=== PATIENT | male | born 1955 | race African-American/Black ===

== ENCOUNTER → 2019-06-09 | Day surgery (SDC) | payer MEDICARE ==
[2019-06-04 11:07] VITALS: BMI 31.4
[~2019-06-09] MED LIST: IOPAMIDOL-300 CONTRAST 30 ML VIAL (ORAL USE) PO PRN; LACTATED RINGERS 1,000 ML IV SCH; LIDOCAINE 1% 20 ML VIAL (10MG/ML) FOR IV START INTRADERMA PRN; PROPOFOL 10 MG/ML 20 ML VIAL IV ONE
[2019-06-09 07:46] VITALS: TEMP 97.6
--- NOTE | 2019-06-09 08:52 | P.GSHP ---
History of Present Illness H&P Date: 06/09/19 Chief Complaint: Screening colonoscopy This is a 63-year-old male referred from Dr. Chandra. Patient rents today for screening colonoscopy. He denies a significant checkpoints. He's never had a colonoscopy before. Past Medical History Additional Past Medical History / Comment(s): hemmorhoids, blood in stool, hx of rheumatic fever as child History of Any Multi-Drug Resistant Organisms: None Reported Past Surgical History: Orthopedic Surgery Additional Past Surgical History / Comment(s): 3 surgeries on left shoulder Past Anesthesia/Blood Transfusion Reactions: No Reported Reaction Smoking Status: Current every day smoker Medications and Allergies Home Medications Medication Instructions Recorded Confirmed Type HYDROcodone/APAP 10-325MG [[place] 1 tab PO Q6HR PRN 06/04/19 06/09/19 History 10-325] Allergies Allergy/AdvReac Type Severity Reaction Status Date / Time No Known Allergies Allergy Verified 06/04/19 10:44 Surgical - Exam Vital Signs Temp Pulse Resp BP Pulse Ox 97.6 F 89 16 161/74 96 06/09/19 07:41 06/09/19 07:41 06/09/19 07:41 06/09/19 07:41 06/09/19 07:41 - General well developed, well nourished, no distress - Eyes PERRL - ENT normal pinna - Neck no masses - Respiratory normal expansion - Cardiovascular Rhythm: regular - Abdomen Abdomen: soft, non tender Assessment and Plan Assessment: We'll perform screening colonoscopy
--- NOTE | 2019-06-09 09:06 | P.OP ---
Date of Procedure: 06/09/19 Preoperative Diagnosis: Screening colonoscopy Postoperative Diagnosis: Diverticulitis Procedure(s) Performed: Colonoscopy Anesthesia: MAC Surgeon: Lopez Mosquera Pathology: other (Left colon) Condition: stable Disposition: PACU Description of Procedure: The patient's placed on the endoscopy table in the lateral position. He received IV sedation. Digital rectal exam was performed which revealed no abnormalities. Flexible colonoscope was then placed patient anus passed throughout the colon. The scope couldn't be passed beyond the splenic flexure secondary to what appeared to be diverticulitis. The mucosa. Be inflamed. A biopsies performed. There is multiple large diverticula seen. Scope was withdrawn the sigmoid colon contained diverticula as well. Scope was brought back the rectum and this appeared normal. Scope withdrawn for patient. Patient was scheduled for a computed tomography scan of the abdomen and pelvis for diverticulitis.
[2019-06-09 09:42] VITALS: BP 158/76; PULSE 74; RESP 16
--- NOTE | 2019-06-09 14:46 | CT ---
EXAMINATION TYPE: CT abdomen pelvis w con DATE OF EXAM: 06/09/2019 COMPARISON: None INDICATION: Post colonoscopy, Diverticulitis DLP: 1503.50 mGycm, Automated exposure control for dose reduction was used. CONTRAST: 100 ml mL of Isovue 300. Study performed with Oral Contrast TECHNIQUE: Axial images were obtained from above the diaphragm to the pubic rami in the axial plane a t 5 mm thick sections. Reconstructed images are reviewed on the computer in the coronal plane. FINDINGS: Limited CT sections are obtained the lung bases. There is a 0.4 cm nodularity in the periphery of th e lingula. Series [address] ABDOMEN: Liver: Diffuse hepatic fatty infiltration is present. This is mild. Spleen: Scattered calcified granuloma are within the spleen. Pancreas: Normal Adrenal glands: There is a 0.9 cm thickening of the distal posterior left adrenal gland. The right ad renal gland appears normal. Gallbladder: Normal Kidneys: No masses are evident. No hydronephrosis is present. No cysts are present. Delayed images were obtained through the kidneys, which remain unremarkable. Aorta: Vascular calcification is within the aorta. Inferior vena cava: Normal. CT PELVIS: Scattered diverticuli are within the sigmoid colon. There is incomplete distention or some minimal wa ll thickening at the splenic flexure. There are loops of bowel which are incompletely distended or la ck oral contrast limiting their evaluation. Appendix: Normal as visualized. Urinary bladder: Normal. Genitourinary structures: Prostate appears unremarkable. Osseous structures: No suspicious lytic or sclerotic lesions. IMPRESSIONS: 1. 0.4 cm nodularity within the lingula. Follow-up CT chest exam within 6 months is recommended. 2. No free air is evident. Oral contrast extends to the rectum. 3. Diverticulosis without acute diverticulitis. 4. Incomplete distention of the splenic flexure versus mild wall thickening. Correlate with colonosco py findings.
== END | disposition home or self-care (01) ==
LOC: ORWHC2ENDO 07:28
PROVIDERS: ATTEND Surgery
DX: K63.5 Polyp of colon (principal); K57.32 Diverticulitis of large intestine without perforation or abscess without bleeding; F17.200 Nicotine dependence, unspecified, uncomplicated
CPT/HCPCS: 88305; 74177; 45380; J2704; Q9967; 45331

== ENCOUNTER 2021-02-09 21:00 | Inpatient (IN) | payer MEDICARE ==
[2021-02-09 21:34] LABS: Basophils # (A) 0.2 k/uL (0-0.2); Basophils % (A) 2 %; Eosinophils % (A) 0 %; HCT 53.8 % (39.0-53.0); HGB 18.7 gm/dL (13.0-17.5); Lymphocytes % (A) 10 %; MCH 33.3 pg (25.0-35.0); MCHC 34.7 g/dL (31.0-37.0); Mean Platelet Volume 8.2; Monocytes # (A) 0.4 k/uL (0-1.0); Monocytes % (A) 4 %; Neutrophils # (A) 8.1 k/uL (1.3-7.7); Neutrophils % (A) 81 %; Platelet Count 270 k/uL (150-450); RDW 14.2 % (11.5-15.5)
[2021-02-09 21:47] LABS: Albumin 3.6 g/dL (3.5-5.0); Total Bilirubin 0.7 mg/dL (0.2-1.3); Total Protein 7.3 g/dL (6.3-8.2)
--- NOTE | 2021-02-09 21:51 | ED ---
SOB HPI - General Chief Complaint: Shortness of Breath Stated Complaint: EMMANUEL Time Seen by Provider: 02/09/21 21:12 Source: patient, RN/MD Mode of arrival: EMS Limitations: no limitations - History of Present Illness Initial Comments: This patient is 65-year-old man brought by ambulance to be evaluated for shortness of breath. Patient states that his family had called as she was not feeling well. He started having symptoms proximally 6 days ago. He initially was having a little bit of cough. He then developed fever and chills, body aches, fatigue past increasing shortness of breath. MD Complaint: shortness of breath, cough Onset/Timin -: days(s) Consistency: constant Improves With: nothing Worsens With: nothing Associated Symptoms: denies other symptoms Treatments Prior to Arrival: none - Related Data Home Oxygen Therapy: No Home Medications Medication Instructions Recorded Confirmed HYDROcodone/APAP 10-325MG [[place] 0.5 - 1 tab PO BID PRN 06/04/19 02/09/21 10-325] Azithromycin [Zithromax Z-pack (6 See Taper PO DIRECTED 02/09/21 02/09/21 tabs)] Dexamethasone [Decadron] 3 mg PO BID 02/09/21 02/09/21 Allergies Allergy/AdvReac Type Severity Reaction Status Date / Time No Known Allergies Allergy Verified 02/09/21 23:08 Review of Systems ROS Statement: Those systems with pertinent positive or pertinent negative responses have been documented in the HPI. ROS Other: All systems not noted in ROS Statement are negative. Constitutional: Reports: fever, chills, weakness Respiratory: Reports: cough, dyspnea. Denies: hemoptysis Cardiovascular: Denies: chest pain, palpitations, orthopnea, edema, syncope Endocrine: Reports: fatigue Gastrointestinal: Denies: abdominal pain, vomiting, diarrhea Genitourinary: Denies: dysuria, hematuria Musculoskeletal: Denies: back pain Skin: Denies: rash Neurological: Reports: headache. Denies: weakness, numbness Past Medical History Additional Past Medical History / Comment(s): hemmorhoids, blood in stool, hx of rheumatic fever as child History of Any Multi-Drug Resistant Organisms: None Reported Past Surgical History: Orthopedic Surgery Additional Past Surgical History / Comment(s): 3 surgeries on left shoulder Past Anesthesia/Blood Transfusion Reactions: No Reported Reaction Past Psychological History: No Psychological Hx Reported Smoking Status: Former smoker Past Alcohol Use History: Occasional Past Drug Use History: Marijuana General Exam Limitations: no limitations General appearance: alert, in distress Head exam: Present: atraumatic, normocephalic Eye exam: Present: normal appearance. Absent: scleral icterus, conjunctival inj ection ENT exam: Present: normal oropharynx Neck exam: Present: normal inspection, full ROM Respiratory exam: Present: respiratory distress, rales, accessory muscle use. Absent: wheezes, rhonchi, stridor, decreased breath sounds, prolonged expiratory Cardiovascular Exam: Present: normal rhythm, tachycardia, normal heart sounds. Absent: systolic murmur, diastolic murmur, rubs, gallop GI/Abdominal exam: Present: soft. Absent: distended, tenderness, guarding, rebound, rigid, mass Extremities exam: Present: normal inspection, normal capillary refill. Absent: pedal edema, calf tenderness Back exam: Present: normal inspection. Absent: CVA tenderness (R), CVA tenderness (L) Neurological exam: Present: alert Skin exam: Present: warm, dry, intact, normal color. Absent: rash Course Vital Signs 02/09/21 02/09/21 02/09/21 21:11 22:00 23:00 Temperature 98.7 F Pulse Rate 110 H 106 H 100 Pulse Rate [ Pulse Oximetery ] Respiratory 36 H 24 22 Rate Blood Pressure 147/79 141/83 138/69 Blood Pressure [Right Arm Supine] O2 Sat by Pulse 84 L 89 L 89 L Oximetry 02/10/21 02/10/21 02/10/21 00:00 01:00 02:00 Temperature Pulse Rate 99 93 90 Pulse Rate [ Pulse Oximetery ] Respiratory 24 24 24 Rate Blood Pressure 125/71 131/81 139/66 Blood Pressure [Right Arm Supine] O2 Sat by Pulse 91 L 84 L 85 L Oximetry 02/10/21 02/10/21 02/10/21 03:00 06:00 10:32 Temperature 98.7 F 96.4 F L Pulse Rate 93 85 Pulse Rate [ 96 Pulse Oximetery ] Respiratory 24 24 30 H Rate Blood Pressure 156/67 148/68 Blood Pressure 149/71 [Right Arm Supine] O2 Sat by Pulse 83 L 94 L 92 L Oximetry 02/10/21 02/10/21 11:10 11:20 Temperature 98.5 F Pulse Rate 99 94 Pulse Rate [ Pulse Oximetery ] Respiratory 37 H 37 H Rate Blood Pressure 155/82 Blood Pressure [Right Arm Supine] O2 Sat by Pulse 95 96 Oximetry Medical Decision Making - Medical Decision Making Patient's 65-year-old man presenting with a constellation of symptoms suggestive of code 19 infection and tested positive. He will be admitted as he is requiring high levels of supplemental oxygen. Additional medications started. Case discussed with admitting physician and will have pulmonology consultation as well. - Lab Data Result diagrams: 02/12/21 05:35 02/12/21 05:35 Lab Results 02/09/21 02/09/21 02/09/21 Range/Units 21:17 21:17 21:17 WBC 10.0 (3.8-10.6) k/uL RBC 5.60 (4.30-5.90) m/uL Hgb 18.7 H (13.0-17.5) gm/dL Hct 53.8 H (39.0-53.0) % MCV 96.0 (80.0-100.0) fL MCH 33.3 (25.0-35.0) pg MCHC 34.7 (31.0-37.0) g/dL RDW 14.2 (11.5-15.5) % Plt Count 270 (150-450) k/uL MPV 8.2 Neutrophils % 81 % Lymphocytes % 10 % Monocytes % 4 % Eosinophils % 0 % Basophils % 2 % Neutrophils # 8.1 H (1.3-7.7) k/uL Lymphocytes # 1.0 (1.0-4.8) k/uL Monocytes # 0.4 (0-1.0) k/uL Eosinophils # 0.0 (0-0.7) k/uL Basophils # 0.2 (0-0.2) k/uL PT 11.1 (9.0-12.0) sec INR 1.0 (<1.2) APTT 21.4 L (22.0-30.0) sec D-Dimer 5.76 H (<0.60) mg/L FEU Sodium 140 (137-145) mmol/L Potassium 4.9 (3.5-5.1) mmol/L Chloride 106 (98-107) mmol/L Carbon Dioxide 25 (22-30) mmol/L Anion Gap 9 mmol/L BUN 30 H (9-20) mg/dL Creatinine 1.08 (0.66-1.25) mg/dL Est GFR (CKD-EPI)AfAm 84 (>60 ml/min/1.73 sqM) Est GFR (CKD-EPI)NonAf 73 (>60 ml/min/1.73 sqM) Glucose 151 H (74-99) mg/dL Lactic Ac Sepsis Rflx Plasma Lactic Acid Ronal (0.7-2.0) mmol/L Calcium 8.4 (8.4-10.2) mg/dL Magnesium 3.1 H (1.6-2.3) mg/dL Total Bilirubin 0.7 (0.2-1.3) mg/dL AST 100 H (17-59) U/L ALT 86 H (4-49) U/L Alkaline Phosphatase 122 (38-126) U/L Troponin I (0.000-0.034) ng/mL NT-Pro-B Natriuret Pep pg/mL Total Protein 7.3 (6.3-8.2) g/dL Albumin 3.6 (3.5-5.0) g/dL Coronavirus (PCR) (Not Detectd) Blood Type Confirm 02/09/21 02/09/21 02/09/21 Range/Units 21:17 21:17 21:17 WBC (3.8-10.6) k/uL RBC (4.30-5.90) m/uL Hgb (13.0-17.5) gm/dL Hct (39.0-53.0) % MCV (80.0-100.0) fL MCH (25.0-35.0) pg MCHC (31.0-37.0) g/dL RDW (11.5-15.5) % Plt Count (150-450) k/uL MPV Neutrophils % % Lymphocytes % % Monocytes % % Eosinophils % % Basophils % % Neutrophils # (1.3-7.7) k/uL Lymphocytes # (1.0-4.8) k/uL Monocytes # (0-1.0) k/uL Eosinophils # (0-0.7) k/uL Basophils # (0-0.2) k/uL PT (9.0-12.0) sec INR (<1.2) APTT (22.0-30.0) sec D-Dimer (<0.60) mg/L FEU Sodium (137-145) mmol/L Potassium (3.5-5.1) mmol/L Chloride (98-107) mmol/L Carbon Dioxide (22-30) mmol/L Anion Gap mmol/L BUN (9-20) mg/dL Creatinine (0.66-1.25) mg/dL Est GFR (CKD-EPI)AfAm (>60 ml/min/1.73 sqM) Est GFR (CKD-EPI)NonAf (>60 ml/min/1.73 sqM) Glucose (74-99) mg/dL Lactic Ac Sepsis Rflx Plasma Lactic Acid Ronal 2.4 H* (0.7-2.0) mmol/L Calcium (8.4-10.2) mg/dL Magnesium (1.6-2.3) mg/dL Total Bilirubin (0.2-1.3) mg/dL AST (17-59) U/L ALT (4-49) U/L Alkaline Phosphatase (38-126) U/L Troponin I 0.035 H* (0.000-0.034) ng/mL NT-Pro-B Natriuret Pep 472 pg/mL Total Protein (6.3-8.2) g/dL Albumin (3.5-5.0) g/dL Coronavirus (PCR) (Not Detectd) Blood Type Confirm 02/09/21 02/09/21 02/09/21 Range/Units 21:17 21:43 22:42 WBC (3.8-10.6) k/uL RBC (4.30-5.90) m/uL Hgb (13.0-17.5) gm/dL Hct (39.0-53.0) % MCV (80.0-100.0) fL MCH (25.0-35.0) pg MCHC (31.0-37.0) g/dL RDW (11.5-15.5) % Plt Count (150-450) k/uL MPV Neutrophils % % Lymphocytes % % Monocytes % % Eosinophils % % Basophils % % Neutrophils # (1.3-7.7) k/uL Lymphocytes # (1.0-4.8) k/uL Monocytes # (0-1.0) k/uL Eosinophils # (0-0.7) k/uL Basophils # (0-0.2) k/uL PT (9.0-12.0) sec INR (<1.2) APTT (22.0-30.0) sec D-Dimer (<0.60) mg/L FEU Sodium (137-145) mmol/L Potassium (3.5-5.1) mmol/L Chloride (98-107) mmol/L Carbon Dioxide (22-30) mmol/L Anion Gap mmol/L BUN (9-20) mg/dL Creatinine (0.66-1.25) mg/dL Est GFR (CKD-EPI)AfAm (>60 ml/min/1.73 sqM) Est GFR (CKD-EPI)NonAf (>60 ml/min/1.73 sqM) Glucose (74-99) mg/dL Lactic Ac Sepsis Rflx Y Plasma Lactic Acid Ronal (0.7-2.0) mmol/L Calcium (8.4-10.2) mg/dL Magnesium (1.6-2.3) mg/dL Total Bilirubin (0.2-1.3) mg/dL AST (17-59) U/L ALT (4-49) U/L Alkaline Phosphatase (38-126) U/L Troponin I (0.000-0.034) ng/mL NT-Pro-B Natriuret Pep pg/mL Total Protein (6.3-8.2) g/dL Albumin (3.5-5.0) g/dL Coronavirus (PCR) Detected A (Not Detectd) Blood Type Confirm A Positive - EKG Data -: EKG Interpreted by Vt EKG shows normal: sinus rhythm, intervals (VA interval 132 ms (normal), QTC 523 ms. QRS duration 140 ms, prolonged consistent with the left bundle-branch block), QRS complexes (Left bundle-branch block) Rate: tachycardia (Rate 107 bpm) Critical Care Time Critical Care Time: Yes (30 minutes) Disposition Clinical Impression: COVID-19, Pneumonia due to 2019-nCoV, Hypoxemia Disposition: ADMITTED IP TO THIS HOSP Condition: Serious
--- NOTE | 2021-02-09 22:05 | XR ---
EXAMINATION TYPE: XR chest 1V portable DATE OF EXAM: 02/09/2021 COMPARISON: NONE HISTORY: Fever and shortness of breath. TECHNIQUE: Single frontal view of the chest is obtained. FINDINGS: There is a bilateral diffuse interstitial opacities, relatively sparing the left lung apex . No pleural effusion, or pneumothorax seen. The cardiac silhouette size is within normal limits. The osseous structures are intact. IMPRESSION: Bilateral diffuse infiltrates.
[2021-02-09 22:08] LABS: Partial Thromboplastin Time 21.4 sec (22.0-30.0); Prothrombin Time 11.1 sec (9.0-12.0)
[2021-02-09 22:15] LABS: D-Dimer 5.76 mg/L FEU (<0.60)
[2021-02-09 22:36] LABS: Calcium 8.4 mg/dL (8.4-10.2); Magnesium 3.1 mg/dL (1.6-2.3); Potassium 4.9 mmol/L (3.5-5.1)
[2021-02-09] MEDS ORDERED: DEXAMETHASONE SOD PHOSPHATE 4 MG/ML 1 ML VIAL IV STA (22:41)
[2021-02-09] MEDS ORDERED: NALOXONE 0.4 MG/ML 1 ML VIAL IV PRN (22:58)
[2021-02-09] MEDS ORDERED: ACETAMINOPHEN TAB 325 MG TAB PO PRN (22:58)
[2021-02-09] MEDS: SODIUM CHLORIDE 0.9% 1,000 ML IV SCH (23:34)
--- NOTE | 2021-02-09 23:42 | CT ---
EXAMINATION TYPE: CT chest angio for PE DATE OF EXAM: 02/09/2021 COMPARISON: None HISTORY: ELEVATED D-DIMER CT DLP: 503.5 mGycm Automated exposure control for dose reduction was used. CONTRAST: Performed with IV Contrast, patient injected with 100 mL of Isovue 370. There are 3-D post processed images. There is diffuse pulmonary emphysema. There is extensive interstitial coalescent infiltrate in the up per and lower lobes bilaterally. There is no pleural effusion. Heart is top normal in size. There is no pericardial effusion. There are right bronchial lymph nodes up to 1.5 cm. There is no mediastinal adenopathy. Thoracic aorta is intact. There is no aneurysm or dissection. There is no evidence of filling defect in the pulmonary arteries. Thoracic spine is intact. There is no compression fracture. The sternum is intact. IMPRESSION: No evidence of pulmonary embolism. Extensive bilateral pneumonia. There is underlying pulmonary emphy sema.
[2021-02-10] MEDS ORDERED: HEPARIN SODIUM,PORCINE/PF 5,000 UNIT/0.5 ML SYRINGE SQ SCH
[2021-02-10] MEDS: SODIUM CHLORIDE 0.9% 1,000 ML IV SCH ×2 (06:17→16:05)
[2021-02-10] MEDS: ALPRAZolam 0.25 MG TAB PO STA ×2 (07:19→07:21)
[2021-02-10] MEDS: ZINC SULFATE 220 MG CAP PO SCH (09:18)
[2021-02-10] MEDS: CHOLECALCIFEROL 25 MCG (1000 IU) TABLET PO SCH (09:18)
[2021-02-10] MEDS: DEXAMETHASONE SOD PHOSPHATE 10 MG/ML 1 ML VIAL IV SCH (09:19)
[2021-02-10] MEDS: ASCORBIC ACID 500 MG TAB PO SCH (09:19)
[2021-02-10] MEDS: LORazepam 2 MG/ML INJ IV PRN (09:40)
[2021-02-10] MEDS ORDERED: TOCILIZUMAB 800 MG in SODIUM CHLORIDE 0.9% 60 ML IV ONE (11:00)
[2021-02-10 11:13] LABS: Glucose,Whole Blood 124 mg/dL (75-99)
[2021-02-10] MEDS: METOPROLOL TARTRATE 25 MG TAB PO SCH ×2 (11:45→21:13)
[2021-02-10] MEDS: ASPIRIN 81 MG PO SCH (11:45)
--- NOTE | 2021-02-10 11:46 | P.CRDCN ---
History of Present Illness History of present illness: HISTORY OF PRESENTING ILLNESS This is a pleasant 65-year-old male past medical history significant for former nicotine dependence (he quit a few months ago and was smoking 2 ppd for over 20 years). 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 We have been asked to see in consultation for elevated troponin. Patient is seen and examined in the emergency department. Patient presented to the emergency room to be evaluated for shortness of breath. Family called an ambulance because he was not feeling well. He started having shortness of breath 6 days ago and a cough. Then he developed a fever, chills, bodyaches, fatigue and continued to have worsening shortness of breath. Patient was found to be Covid-19 positive. Troponin elevated 0.03-->0.06--0.06. D-dimer also elevated at 5.76. Chest x-ray revealed bilateral diffuse interstitial opacities. CT chest revealed extensive bilateral pneumonia, no evidence of a pulmonary embolism. EKG revealed sinus tachycardia, with a left bundle branch block, T wave inversions in lateral leads, avF, V6, QTc 523, No prior EKG to compare. Patient sitting up at edge of bed on BiPap. Patient currently does not take any cardiac medications. He denies any cardiac history. Denies chest pain, palpitations, lower extremity edema, weakness, lightheadedness, syncope]. Denies history of diabetes, AR, stroke, hypertension. He denies alcohol or illicit drug use Laboratory data reviewed, WBC 10, hemoglobin 18.7, platelets 270, d-dimer 5.76, sodium 140, potassium 4.9, magnesium 3.1, serum creatinine 1.08, AST 100, ALT 86 Vital signs blood pressure 156/67, heart rate 93, afebrile, patient hypoxic when presented to the ER SpO2 84 and requiring a non-rebreather mask, now on high flow nasal cannula REVIEW OF SYSTEMS At the time of my exam: CONSTITUTIONAL: + fever or chills. CARDIOVASCULAR: Denies chest pain, +shortness of breath, Denies orthopnea, PND or palpitations. RESPIRATORY: + cough. GASTROINTESTINAL: Denies abdominal pain, diarrhea, constipation, nausea or vomiting. MUSCULOSKELETAL: Denies myalgias. NEUROLOGIC: Denies numbness, tingling, headacbe or weakness. ENDOCRINE: +fatigue, Denies weight change, polydipsia or polyurina. GENITOURINARY: Denies burning, hematuria or urgency with micturation. HEMATOLOGIC: Denies history of anemia or bleeding. PHYSICAL EXAMINATION CONSTITUTIONAL: No apparent distress. HEENT: Head is normocephalic. Pupils are equal, round. Sclerae anicteric. Mucous membranes of the mouth are moist. No JVD. No carotid bruit. CHEST EXAMINATION: Crackles in bilateral bases. No chest wall tenderness is noted on palpation or with deep breathing. HEART EXAMINATION: Tachycardia rate and rhythm. S1, S2 heard. No murmurs, gallops or rub. ABDOMEN: Soft, nontender. Positive bowel sounds. EXTREMITIES: 2+ peripheral pulses, no lower extremity edema and no calf tenderness. SKIN: intact NEUROLOGIC EXAMINATION: Patient is awake, alert and oriented x3. ASSESSMENT Acute hypoxic respiratory failure most likely due to Covid-19 infection Covid 19 Former nicotine dependence Elevated troponin Left bundle branch block Elevated liver enzymes PLAN Obtain 2D echocardiogram and doppler study to assess cardiac structure and function. Will start metoprolol tartrate 25mg BID Will continue to follow patient Nurse Practitioner note has been reviewed, I agree with a documented findings and plan of care. Patient was seen and examined. Past Medical History Additional Past Medical History / Comment(s): hemmorhoids, blood in stool, hx of rheumatic fever as child History of Any Multi-Drug Resistant Organisms: None Reported Past Surgical History: Orthopedic Surgery Additional Past Surgical History / Comment(s): 3 surgeries on left shoulder Past Anesthesia/Blood Transfusion Reactions: No Reported Reaction Past Psychological History: No Psychological Hx Reported Smoking Status: Former smoker Past Alcohol Use History: Occasional Past Drug Use History: Marijuana Medications and Allergies Home Medications Medication Instructions Recorded Confirmed Type HYDROcodone/APAP 10-325MG [[place] 0.5 - 1 tab PO BID PRN 06/04/19 02/09/21 History 10-325] Azithromycin [Zithromax Z-pack (6 See Taper PO DIRECTED 02/09/21 02/09/21 History tabs)] Dexamethasone [Decadron] 3 mg PO BID 02/09/21 02/09/21 History Allergies Allergy/AdvReac Type Severity Reaction Status Date / Time No Known Allergies Allergy Verified 02/09/21 23:08 Physical Exam Vitals: Vital Signs Temp Pulse Resp BP Pulse Ox 02/10/21 03:00 93 24 156/67 83 L 02/10/21 02:00 90 24 139/66 85 L 02/10/21 01:00 93 24 131/81 84 L 02/10/21 00:00 99 24 125/71 91 L 02/09/21 23:00 100 22 138/69 89 L 02/09/21 22:00 106 H 24 141/83 89 L 02/09/21 21:11 98.7 F 110 H 36 H 147/79 84 L Intake and Output 02/09/21 02/09/21 02/10/21 14:59 22:59 06:59 Other: Weight 99.79 kg Results 02/09/21 21:17 02/09/21 21:17 Cardiac Enzymes 02/09/21 02/09/21 02/10/21 Range/Units 21:17 21:17 02:14 AST 100 H (17-59) U/L Troponin I 0.035 H* 0.065 H* (0.000-0.034) ng/mL Coagulation 02/09/21 Range/Units 21:17 PT 11.1 (9.0-12.0) sec APTT 21.4 L (22.0-30.0) sec CBC 02/09/21 Range/Units 21:17 WBC 10.0 (3.8-10.6) k/uL RBC 5.60 (4.30-5.90) m/uL Hgb 18.7 H (13.0-17.5) gm/dL Hct 53.8 H (39.0-53.0) % Plt Count 270 (150-450) k/uL Comprehensive Metabolic Panel 02/09/21 Range/Units 21:17 Sodium 140 (137-145) mmol/L Potassium 4.9 (3.5-5.1) mmol/L Chloride 106 (98-107) mmol/L Carbon Dioxide 25 (22-30) mmol/L BUN 30 H (9-20) mg/dL Creatinine 1.08 (0.66-1.25) mg/dL Glucose 151 H (74-99) mg/dL Calcium 8.4 (8.4-10.2) mg/dL AST 100 H (17-59) U/L ALT 86 H (4-49) U/L Alkaline Phosphatase 122 (38-126) U/L Total Protein 7.3 (6.3-8.2) g/dL Albumin 3.6 (3.5-5.0) g/dL Current Medications Generic Name Dose Route Start Last Admin Trade Name Freq PRN Reason Stop Dose Admin Acetaminophen 650 mg 02/09/21 22:58 Acetaminophen Tab 325 Mg Tab PO Q6HR PRN Mild Pain or Fever > 100.5 Ascorbic Acid 500 mg 02/10/21 09:00 Ascorbic Acid 500 Mg Tab PO DAILY MARIO Cholecalciferol 100 mcg 02/10/21 09:00 Cholecalciferol 25 Mcg (1000 Iu) Tablet PO DAILY MARIO Dexamethasone Sodium Phosphate 6 mg 02/10/21 09:00 Dexamethasone Sod Phosphate 10 Mg/Ml 1 Ml Vial IV DAILY MARIO Heparin Sodium (Porcine) 5,000 unit 02/10/21 00:00 02/10/21 01:27 Heparin Sodium,Porcine/Pf 5,000 Unit/0.5 Ml Syringe SQ 5,000 unit Q8HR MARIO Administration Sodium Chloride 1,000 mls @ 130 mls/hr 02/09/21 23:00 02/09/21 23:34 Saline 0.9% IV 130 mls/hr .[id number] MARIO Administration Naloxone HCl 0.2 mg 02/09/21 22:58 Naloxone 0.4 Mg/Ml 1 Ml Vial IV Q2M PRN Opioid Reversal Zinc Sulfate 220 mg 02/10/21 09:00 Zinc Sulfate 220 Mg Cap PO DAILY MARIO Intake and Output 02/09/21 02/09/21 02/10/21 14:59 22:59 06:59 Other: Weight 99.79 kg Patient Weight 02/10/21 06:59 Weight 99.79 kg 02/09/21 21:17 02/09/21 21:17
--- NOTE | 2021-02-10 14:00 | US ---
EXAMINATION TYPE: US venous doppler duplex LE DATE OF EXAM: 02/10/2021 1:44 PM COMPARISON: NONE CLINICAL HISTORY: Rule out DVT. SIDE PERFORMED: Bilateral TECHNIQUE: The lower extremity deep venous system is examined utilizing real time linear array sonog ken with graded compression, doppler sonography and color-flow sonography. VESSELS IMAGED: Common Femoral Vein Deep Femoral Vein Greater Saphenous Vein * Femoral Vein Popliteal Vein Small Saphenous Vein * Proximal Calf Veins (* superficial vessels) ICU patient on high level of O2. Pt's position making exam technically difficult. Right Leg: Negative for DVT as seen, CFV seen only distally, GSV not seen. Left Leg: Negative for DVT, CFV seen only distally, GSV not seen. IMPRESSION: 1. Bilateral lower extremity ultrasound negative for deep venous thrombosis. 2. Exam is limited, portions of the exam are nondiagnostic due to nonvisualization secondary to patie nt positioning.
--- NOTE | 2021-02-10 14:50 | P.CNPUL ---
History of Present Illness Consult date: 02/10/21 Reason for consult: dyspnea, COPD, hypoxemia, pneumonia, abnormal CXR/CT Chief complaint: Acute hypoxic respiratory failure related to COVID 19 pneumonia History of present illness: 65-year-old -German male patient with past history of smoking which is currently in remission, and patient does smoke marijuana on a regular basis, who presented to the emergency department on 02/09/2021 with 2 week history of in creased shortness of breath. At the time of my evaluation patient is quite restless, is a poor historian, he is removing his BiPAP currently, he is requiring close monitoring as he is easily desaturating he was placed on Airvo at 60 L and FiO2 of 90% and his pulse ox went down to 82%. Denies any chest pain. His contacted Dr. Stevens's office and was told to come into the emergency department. While patient was at a green party 2 weeks ago, and he was possibly infected there. He has not been vaccinated for COVID 19 yet. His chest x-ray in the emergency department shows bilateral diffuse interstitial opacities. He is d-dimer was 5.76, and CTA chest showed no evidence of pulmonary embolism, and additional extensive bilateral pneumonia with underlying pulmonary emphysema. Denies lower extremity swelling or calf pain, lower extremity Dopplers were negative for DVT. Plasma lactic acid was 2.4, BUN was 30, creatinine is 1.08, AST was 100, ALT was 86, troponin was elevated to 0.035, 0.065, and 0.069, proBNP was 472, pro calcitonin level was negative at 0.14. His COVID 19 PCR was positive. Review of significant hypoxia, and risk of further deterioration the decision was made to transfer the patient to the intensive care unit. His was notified. Patient is outside the window for Remdesivir, but will receive Tocilizumab, IL-6 monoclonal antibody. He required doses of lorazepam for anxiety, with affect. She will be placed on intermediate dose of anticoagulation with Lovenox 50 mg subcu twice daily Review of Systems All systems: negative Constitutional: Denies chills, Denies fever Eyes: denies blurred vision, denies pain Ears, nose, mouth and throat: Denies headache, Denies sore throat Cardiovascular: Denies chest pain, Denies shortness of breath Respiratory: Reports cough, Reports dyspnea Gastrointestinal: Denies abdominal pain, Denies diarrhea, Denies nausea, Denies vomiting Musculoskeletal: Denies myalgias Integumentary: Denies pruritus, Denies rash Neurological: Denies numbness, Denies weakness Psychiatric: Denies anxiety, Denies depression Endocrine: Denies fatigue, Denies weight change Past Medical History Past Medical History: No Reported History Additional Past Medical History / Comment(s): hemmorhoids, blood in stool, hx of rheumatic fever as child History of Any Multi-Drug Resistant Organisms: None Reported Past Surgical History: Orthopedic Surgery Additional Past Surgical History / Comment(s): 3 surgeries on left shoulder Past Anesthesia/Blood Transfusion Reactions: No Reported Reaction Past Psychological History: No Psychological Hx Reported Smoking Status: Former smoker Past Alcohol Use History: Occasional Past Drug Use History: Marijuana Medications and Allergies Home Medications Medication Instructions Recorded Confirmed Type HYDROcodone/APAP 10-325MG [[place] 0.5 - 1 tab PO BID PRN 06/04/19 02/09/21 [facility] 10-325] Azithromycin [Zithromax Z-pack (6 See Taper PO DIRECTED 02/09/21 02/09/21 [facility] tabs)] Dexamethasone [Decadron] 3 mg PO BID 02/09/21 02/09/21 History Allergies Allergy/AdvReac Type Severity Reaction Status Date / Time No Known Allergies Allergy Verified 02/09/21 23:08 Physical Exam Vitals: Vital Signs Temp Pulse Pulse Resp BP BP Pulse Ox 02/10/21 14:00 78 31 H 142/69 96 02/10/21 13:00 75 27 H 157/80 94 L 02/10/21 12:00 87 29 H 155/82 96 02/10/21 11:20 98.5 F 94 37 H 155/82 96 02/10/21 11:10 99 37 H 95 02/10/21 10:32 96.4 F L 96 30 H 149/71 92 L 02/10/21 06:00 98.7 F 85 24 148/68 94 L 02/10/21 03:00 93 24 156/67 83 L 02/10/21 02:00 90 24 139/66 85 L 02/10/21 01:00 93 24 131/81 84 L 02/10/21 00:00 99 24 125/71 91 L 02/09/21 23:00 100 22 138/69 89 L 02/09/21 22:00 106 H 24 141/83 89 L 02/09/21 21:11 98.7 F 110 H 36 H 147/79 84 L Intake and Output 02/09/21 02/10/21 02/10/21 22:59 06:59 14:59 Intake Total 500 Balance 500 Intake: Intake, IV Titration 400 Amount Sodium Chloride 0.9% 1, 300 000 ml @ 75 mls/hr IV . [id number] [facility] Rx#:[id number] Tocilizumab 800 mg In 100 Sodium Chloride 0.9% 60 ml @ 100 mls/hr IV ONCE ONE Rx#:[id number] Oral 100 Blood Product 0 Ffp Convalescent Plasma 0 Cpd Unit [id number] Other: Weight 99.79 kg 99.79 kg GENERAL EXAM: Alert, agitated, restless, 65-year-old black male taking his BiPAP mask off and desaturating, placed on Airvo at 60 L and FiO2 of 90% comfortable in no apparent distress. HEAD: Normocephalic/atraumatic. EYES: Normal reaction of pupils, equal size. Conjunctiva pink, sclera white. NOSE: Clear with pink turbinates. THROAT: No erythema or exudates. NECK: No masses, no JVD, no thyroid enlargement, no adenopathy. CHEST: No chest wall deformity. Symmetrical expansion. LUNGS: Equal air entry with diffuse bibasilar crackles CVS: Regular rate and rhythm, normal S1 and S2, no gallops, no murmurs, no rubs ABDOMEN: Soft, nontender. No hepatosplenomegaly, normal bowel sounds, no guarding or rigidity. EXTREMITIES: No clubbing, no edema, no cyanosis, 2+ pulses and upper and lower extremities. MUSCULOSKELETAL: Muscle strength and tone normal. SPINE: No scoliosis or deformity SKIN: No rashes CENTRAL NERVOUS SYSTEM: Alert and oriented -3. No focal deficits, tone is normal in all 4 extremities. PSYCHIATRIC: Alert and oriented -3. Appropriate affect. Intact judgment and insight. Results - Laboratory Findings CBC and BMP: 02/09/21 21:17 02/09/21 21:17 PT/INR, D-dimer PT 11.1 sec (9.0-12.0) 02/09/21 21:17 INR 1.0 (<1.2) 02/09/21 21:17 D-Dimer 5.76 mg/L FEU (<0.60) H 02/09/21 21:17 Abnormal lab findings: Abnormal Labs 02/09/21 02/09/21 02/09/21 21:17 21:17 21:17 Hgb 18.7 H Hct 53.8 H Neutrophils # 8.1 H APTT 21.4 L D-Dimer 5.76 H BUN 30 H Glucose 151 H POC Glucose (mg/dL) Plasma Lactic Acid Ronal Magnesium 3.1 H AST 100 H ALT 86 H Troponin I Procalcitonin Coronavirus (PCR) 02/09/21 02/09/21 02/09/21 21:17 21:17 21:43 Hgb Hct Neutrophils # APTT D-Dimer BUN Glucose POC Glucose (mg/dL) Plasma Lactic Acid Ronal 2.4 H* Magnesium AST ALT Troponin I 0.035 H* Procalcitonin Coronavirus (PCR) Detected A 02/10/21 02/10/21 02/10/21 01:07 02:14 06:00 Hgb Hct Neutrophils # APTT D-Dimer BUN Glucose POC Glucose (mg/dL) Plasma Lactic Acid Ronal Magnesium AST ALT Troponin I 0.065 H* 0.069 H* Procalcitonin 0.14 H Coronavirus (PCR) 02/10/21 11:11 Hgb Hct Neutrophils # APTT D-Dimer BUN Glucose POC Glucose (mg/dL) 124 H Plasma Lactic Acid Ronal Magnesium AST ALT Troponin I Procalcitonin Coronavirus (PCR) - Diagnostic Findings Chest x-ray: report reviewed, image reviewed CT scan - chest: report reviewed, image reviewed Additional studies: EKG reviewed, lower extremity Dopplers reviewed Assessment and Plan Plan: Assessment: #1. Acute hypoxemic respiratory failure, related to COVID 19 pneumonia, with onset of symptoms 14 days ago, outside the window for Remdesivir. On presentation patient has significant bilateral diffuse infiltrates, and severe hypoxic respiratory failure requiring BiPAP support, the patient failed Airvo at 60 L and FiO2 of 90%. Transfer to the intensive care unit from the emergency department on 02/10/2021 #2. Dyspnea, cough, recent inflammatory markers related to the above #3. Increased d-dimer of 5.[address] evidence of pulmonary embolism and no evidence of DVT on lower extremity Dopplers #4. Troponin leak, likely related to severe COVID 19 pneumonia with severe hypoxic respiratory failure, and cardiology is following #5. Former smoker, carries [id number] smoking history, currently in remission, suspect underlying COPD #6. Marijuana use Plan: Patient presented to the hospital already in the moderate to severe presentation of COVID 19 pneumonia with severe hypoxic respiratory failure, requiring high flow Airvo, and eventually being placed on BiPAP support, we'll give the patient a dose of Tocilizumab, Lovenox 50 mg twice daily, there is no CTA evidence of pulmonary embolism, venous Dopplers are negative for DVT in lower extremity. Maintaining safety precautions, Ativan 1 mg every 4 hours for anxiety. Continue closely monitoring the patient, patient is 14 days out from the initial onset of symptoms, out of the window for Remdesivir, we'll give 1 unit of convalescent plasma, continue to closely follow his clinical course in the intensive care unit, prognosis is guarded I performed a history & physical examination of the patient and discussed their management with my nurse practitioner, Destiny Wilder. I reviewed the nurse practitioner's note and agree with the documented findings and plan of care. Lung sounds are positive for diffuse crackles. The findings and the impression was discussed with the patient. I attest to the documentation by the nurse practitioner. Time with Patient: Greater than 30
--- NOTE | 2021-02-10 18:35 | ECHOF ---
Referral Reason:elevated troponin new LBBB MEASUREMENTS -------- HEIGHT: 157.5 cm WEIGHT: 99.8 kg BP: Ao Diam: 3.7 cm (2.0 - 3.7) AV Cusp: 2.0 cm (1.5 - 2.6) LA Diam: 2.9 cm (2.7 - 3.8) RAP: 5.00 mmHg RVSP: 9.27 mmHg FINDINGS -------- Left Bundle Branch Block This was a technically difficult study with suboptimal views. Limited Study Overall left ventricular systolic function is severely impaired with, an EF between 20 - 25 %. Subo ptimal test with Lumason. The RV was not well visualized. The left atrium was not well visualized. The right atrium was not well visualized. Lumason used The aortic valve was not well visualized. There is trace mitral regurgitation. The tricuspid valve appears structurally normal. Trace tricuspid regurgitation present. Right edgar tricular systolic pressure is normal at < 35 mmHg. There is no pulmonic regurgitation present. The aortic root size is normal. IVC Not well visulized. CONCLUSIONS -------- 1. Overall left ventricular systolic function is severely impaired with, an EF between 20 - 25 %. 2. Suboptimal test with Lumason. 3. There is trace mitral regurgitation. 4. Trace tricuspid regurgitation present. BOAT JOINER HELPER: Ofelia Richter RDCS
--- NOTE | 2021-02-10 20:47 | P.HPIM ---
History of Present Illness This is a pleasant 65 years old male with no significant past medical history who presents because of one-week history of dyspnea associated with high fever at 101.3 at home. Associated with coughing. He feels generally weak but no significant chest pain. Patient dyspnea was getting more worse and he was not feeling well so family brought him to the hospital. His symptoms started about 2 weeks Patient is poor historian and is oxygen saturation was troponin while he was on high flow nasal cannula and he has to be placed on BiPAP and sent to the ICU from emergency room Patient is ex-smoker, he quit a few months ago. Used to smoke 2 packs per day. Patient is tachypneic with a breathing rate of 30, he is saturating any to on 60 L/m of oxygen via high flow cannula. A febrile. CBC, and BMP are unremarkable. Liver enzymes slightly elevated with AST 100 and ALT 86 and normal bilirubin of 0.7. D-dimer is elevated at 5.7. Elevated troponin 0.03, 0.06, 0.06 Chronic varus detected CTA of the chest: No evidence of PE. Extensive bilateral pneumonia, emphysema EKG showing sinus tachycardia at 107 with the bundle branch block and QTC 523 Chest x-ray: Bilateral infiltrates Ultrasound of the lower extremities is negative for DVT on both sides In ED he was started on Lovenox, normal saline at 75 mL/h, one-time dose of to cilizumab per pulmonary team , vitamin C, zinc and vitamin D. Patient has been evaluated by pulmonary service, he was started on BiPAP and admitted to the ICU Review of Systems CONSTITUTIONAL: No fever, no malaise, no fatigue. HEENT: No recent visual problems or hearing problems. Denied any sore throat. CARDIOVASCULAR: No orthopnea, PND, no palpitations, no syncope. PULMONARY: No chest wall tenderness, no hemoptysis. GASTROINTESTINAL: No diarrhea, no nausea, no vomiting, no abdominal pain. Normoactive bowel sounds. NEUROLOGICAL: No headaches, no weakness, no numbness. HEMATOLOGICAL: Denies any bleeding or petechiae. GENITOURINARY: Denies any burning micturition, frequency, or urgency. MUSCULOSKELETAL/RHEUMATOLOGICAL: Denies any joint pain, swelling, or any muscle pain. ENDOCRINE: Denies any polyuria or polydipsia. Past Medical History Additional Past Medical History / Comment(s): hemmorhoids, blood in stool, hx of rheumatic fever as child History of Any Multi-Drug Resistant Organisms: None Reported Past Surgical History: Orthopedic Surgery Additional Past Surgical History / Comment(s): 3 surgeries on left shoulder Past Anesthesia/Blood Transfusion Reactions: No Reported Reaction Past Psychological History: No Psychological Hx Reported Smoking Status: Former smoker Past Alcohol Use History: Occasional Past Drug Use History: Marijuana Medications and Allergies Home Medications Medication Instructions Recorded Confirmed Type HYDROcodone/APAP 10-325MG [[place] 0.5 - 1 tab PO BID PRN 06/04/19 02/09/21 History 10-325] Azithromycin [Zithromax Z-pack (6 See Taper PO DIRECTED 02/09/21 02/09/21 History tabs)] Dexamethasone [Decadron] 3 mg PO BID 02/09/21 02/09/21 History Allergies Allergy/AdvReac Type Severity Reaction Status Date / Time No Known Allergies Allergy Verified 02/09/21 23:08 Physical Exam Vitals: Vital Signs Temp Pulse Pulse Resp BP BP Pulse Ox 02/10/21 10:32 96.4 F L 96 30 H 149/71 92 L 02/10/21 06:00 98.7 F 85 24 148/68 94 L 02/10/21 03:00 93 24 156/67 83 L 02/10/21 02:00 90 24 139/66 85 L 02/10/21 01:00 93 24 131/81 84 L 02/10/21 00:00 99 24 125/71 91 L 02/09/21 23:00 100 22 138/69 89 L 02/09/21 22:00 106 H 24 141/83 89 L 02/09/21 21:11 98.7 F 110 H 36 H 147/79 84 L Intake and Output 02/09/21 02/10/21 02/10/21 22:59 06:59 14:59 Other: Weight 99.79 kg GENERAL: The patient is alert and oriented x3, not in any acute distress. Well developed, well nourished. HEENT: Pupils are round and aequally reacting to light. EOMI. No scleral icterus. No conjunctival pallor. Normocephalic, atraumatic. No pharyngeal erythema. No thyromegaly. CARDIOVASCULAR: S1 and S2 present. No murmurs, rubs, or gallops. -PULMONARY: Chest is clear to auscultation, bilateral. Patient. No wheezing. On BiPAP machine ABDOMEN: Soft, nontender, nondistended, normoactive bowel sounds. No palpable organomegaly. MUSCULOSKELETAL: No joint swelling or deformity. EXTREMITIES: No cyanosis, clubbing, or pedal edema. NEUROLOGICAL: Gross neurological examination did not reveal any focal deficits. SKIN: No rashes. No petechiae Results CBC & Chem 7: 02/09/21 21:02/09/21 21:17 Labs: Abnormal Lab Results - Last 24 Hours (Table) 02/09/21 02/09/21 02/09/21 Range/Units 21:17 21:17 21:17 Hgb 18.7 H (13.0-17.5) gm/dL Hct 53.8 H (39.0-53.0) % Neutrophils # 8.1 H (1.3-7.7) k/uL APTT 21.4 L (22.0-30.0) sec D-Dimer 5.76 H (<0.60) mg/L FEU BUN 30 H (9-20) mg/dL Glucose 151 H (74-99) mg/dL Plasma Lactic Acid Ronal (0.7-2.0) mmol/L Magnesium 3.1 H (1.6-2.3) mg/dL AST 100 H (17-59) U/L ALT 86 H (4-49) U/L Troponin I (0.000-0.034) ng/mL Coronavirus (PCR) (Not Detectd) 02/09/21 02/09/21 02/09/21 Range/Units 21:17 21:17 21:43 Hgb (13.0-17.5) gm/dL Hct (39.0-53.0) % Neutrophils # (1.3-7.7) k/uL APTT (22.0-30.0) sec D-Dimer (<0.60) mg/L FEU BUN (9-20) mg/dL Glucose (74-99) mg/dL Plasma Lactic Acid Ronal 2.4 H* (0.7-2.0) mmol/L Magnesium (1.6-2.3) mg/dL AST (17-59) U/L ALT (4-49) U/L Troponin I 0.035 H* (0.000-0.034) ng/mL Coronavirus (PCR) Detected A (Not Detectd) 02/10/21 02/10/21 Range/Units 02:14 06:00 Hgb (13.0-17.5) gm/dL Hct (39.0-53.0) % Neutrophils # (1.3-7.7) k/uL APTT (22.0-30.0) sec D-Dimer (<0.60) mg/L FEU BUN (9-20) mg/dL Glucose (74-99) mg/dL Plasma Lactic Acid Ronal (0.7-2.0) mmol/L Magnesium (1.6-2.3) mg/dL AST (17-59) U/L ALT (4-49) U/L Troponin I 0.065 H* 0.069 H* (0.000-0.034) ng/mL Coronavirus (PCR) (Not Detectd) Assessment and Plan Assessment: Acute bilateral Covid pneumonia Acute hypoxic respiratory failure secondary to above Elevated inflammatory markers Elevated troponin Elevated d-dimer, with no evidence of PE on CTA of the chest Mildly elevated liver enzymes, secondary to covid Height lactic acid, came back to normal Emphysema Plan: This is a pleasant 65 years old male who presents with Covid. Continue with vitamin C, vitamin D and zinc. Continue with steroids. Pulmonary and cardiology consult Continue with BiPAP and monitor closely while in the ICU Labs and medication were reviewed.. Continue same treatment. Continue with symptomatic treatment. Resume home medication. Monitor lytes and vitals. DVT and GI prophylaxis. Further recommendations depends on the clinical course of the patient DVT prophylaxis: Subcutaneous Lovenox GI Prophylaxis: Pepcid PT/OT: Pending Prognosis is guarded
[2021-02-10] MEDS ORDERED: ENOXAPARIN 40 MG/0.4 ML SYRINGE SQ SCH (21:00)
[2021-02-10] MEDS: ENOXAPARIN 60 MG/0.6 ML SYRINGE SQ SCH (21:13)
[2021-02-10] MEDS: FAMOTIDINE 20 MG/2 ML VIAL IV SCH (21:13)
[2021-02-11] MEDS: SODIUM CHLORIDE 0.9% 1,000 ML IV SCH ×2 (04:56→18:25)
[2021-02-11 05:12] LABS: HCT 53.2 % (39.0-53.0); HGB 17.2 gm/dL (13.0-17.5); MCH 31.6 pg (25.0-35.0); MCHC 32.4 g/dL (31.0-37.0); MCV 97.8 fL (80.0-100.0); Mean Platelet Volume 8.7; Platelet Count 233 k/uL (150-450); RBC 5.44 m/uL (4.30-5.90); RDW 14.9 % (11.5-15.5)
[2021-02-11 06:24] LABS: ALT 105 U/L (4-49); AST 101 U/L (17-59); African American GFR (CKD) >90 (>60 ml/min/1.73 sqM); Albumin 3.1 g/dL (3.5-5.0); Alkaline Phosphatase 121 U/L (38-126); Anion Gap 5 mmol/L; Blood Urea Nitrogen 25 mg/dL (9-20); C Reactive Protein 38.9 mg/L (<10.0); Calcium 8.2 mg/dL (8.4-10.2); Carbon Dioxide 24 mmol/L (22-30); Chloride 109 mmol/L (98-107); Creatine Kinase 269 U/L (55-170); Glucose 89 mg/dL (74-99); Non-African American GFR(CKD) >90 (>60 ml/min/1.73 sqM); Sodium 138 mmol/L (137-145); Total Bilirubin 0.7 mg/dL (0.2-1.3); Total Protein 6.4 g/dL (6.3-8.2)
--- NOTE | 2021-02-11 06:29 | P.PN ---
Subjective Progress Note Date: 02/11/21 Principal diagnosis: Abnormal cardiac enzymes This is a 65-year-old gentleman who was admitted to the hospital with acute hypoxic respiratory failure secondary to COVID-19 infection and we consulted to see the patient because of abnormal troponin. The patient was seen today February [id number]. He continues to be intubated on mechanical ventilation. Hemodynamically he is stable. He underwent an echocardiogram and that revealed severe cardiomyopathy. Currently the patient i s on aspirin as well as metoprolol. I'm going to add lisinopril 2.5 mg by mouth daily to the current medical regimen. We will continue following up with the patient. Objective - Vital Signs Vital signs: Vital Signs Temp 97.9 F 02/11/21 04:00 Pulse 66 02/11/21 05:00 Resp 28 H 02/11/21 05:00 BP 126/58 02/11/21 05:00 Pulse Ox 94 L 02/11/21 05:00 Intake & Output 02/10/21 02/10/21 02/11/21 06:59 18:59 06:59 Intake Total 1361 1025 Output Total 400 950 Balance 961 75 Weight 99.79 kg Intake: IV 750 Sodium Chloride 0.9% 1, 750 000 ml @ 75 mls/hr IV . [id number] [facility] Rx#:[id number] Intake, IV Titration 700 75 Amount Sodium Chloride 0.9% 1, 600 75 000 ml @ 75 mls/hr IV . [id number] [facility] Rx#:[id number] Tocilizumab 800 mg In 100 Sodium Chloride 0.9% 60 ml @ 100 mls/hr IV ONCE ONE Rx#:[id number] Oral 340 200 Blood Product 291 Ffp Convalescent Plasma 291 Cpd Unit [id number] Other 30 Ffp Convalescent Plasma 30 Cpd Unit [id number] Output: Urine 400 950 Other: Voiding Method Urinal - Labs CBC & Chem 7: 02/11/21 04:30 02/09/21 21:17 Labs: Abnormal Lab Results - Last 24 Hours (Table) 02/10/21 02/10/21 02/10/21 Range/Units 01:07 06:00 11:11 Hct (39.0-53.0) % POC Glucose (mg/dL) 124 H (75-99) mg/dL Troponin I 0.069 H* (0.000-0.034) ng/mL Procalcitonin 0.14 H (0.02-0.09) ng/mL 02/11/21 Range/Units 04:30 Hct 53.2 H (39.0-53.0) % POC Glucose (mg/dL) (75-99) mg/dL Troponin I (0.000-0.034) ng/mL Procalcitonin (0.02-0.09) ng/mL Microbiology - Last 24 Hours (Table) 02/09/21 21:17 Blood Culture - Preliminary Blood No Growth after 24 hours 02/09/21 21:00 Blood Culture - Preliminary Blood No Growth after 24 hours Assessment and Plan Assessment: Assessment #1 acute hypoxic respiratory failure #2 mildly abnormal troponin #3 cardiomyopathy #4 multiple comorbid conditions Plan #1 continue the current medical regimen #2 add lisinopril to the current medical regimen #3 follow-up with the patient
[2021-02-11 06:35] LABS: LDH 2339 U/L (313-618)
[2021-02-11] MEDS: ZINC SULFATE 220 MG CAP PO SCH (08:20)
[2021-02-11] MEDS: METOPROLOL TARTRATE 25 MG TAB PO SCH ×2 (08:20→20:01)
[2021-02-11] MEDS: DEXAMETHASONE SOD PHOSPHATE 10 MG/ML 1 ML VIAL IV SCH (08:20)
[2021-02-11] MEDS: ASCORBIC ACID 500 MG TAB PO SCH (08:20)
[2021-02-11] MEDS: FAMOTIDINE 20 MG/2 ML VIAL IV SCH ×2 (08:20→20:01)
[2021-02-11] MEDS: ASPIRIN 81 MG PO SCH (08:20)
[2021-02-11] MEDS: CHOLECALCIFEROL 25 MCG (1000 IU) TABLET PO SCH (08:21)
[2021-02-11] MEDS: ENOXAPARIN 60 MG/0.6 ML SYRINGE SQ SCH ×2 (08:21→20:01)
[2021-02-11 11:11] LABS: Band Neutrophils % 2 %; Neutrophils % (M) 73 %; Nucleated Red Blood Cells 2 /100 WBC (0-0); Total Cells Counted 200
[2021-02-11 11:12] LABS: Lymphocytes # (M) 1.52 k/uL (1.0-4.8); Monocytes # (M) 0.46 k/uL (0-1.0); WBC 7.6 k/uL (3.8-10.6)
--- NOTE | 2021-02-11 11:16 | XR ---
EXAMINATION TYPE: XR chest 1V DATE OF EXAM: 02/11/2021 COMPARISON: 02/09/2021 INDICATION: Covid Pneumonia TECHNIQUE: Single frontal view of the chest is obtained. FINDINGS: The heart size is mildly prominent. The pulmonary vasculature is normal. Diffuse increased lung markings are present bilaterally. IMPRESSION: 1. Diffuse increased lung markings present bilaterally similar to prior examination can be compatible with atypical pneumonia.
[2021-02-11 12:02] LABS: Ferritin 1519.5 ng/mL (22.0-322.0)
--- NOTE | 2021-02-11 12:11 | P.PN ---
Subjective Progress Note Date: 02/11/21 Principal diagnosis: Acute hypoxemic respiratory failure secondary to CoVID 19 pneumonia 65-year-old -[place] male patient with past history of smoking which is currently in remission, and patient does smoke marijuana on a regular basis, who presented to the emergency department on 02/09/2021 with 2 week history of increased shortness of breath. At the time of my evaluation patient is quite restless, is a poor historian, he is removing his BiPAP currently, he is re quiring close monitoring as he is easily desaturating he was placed on Airvo at 60 L and FiO2 of 90% and his pulse ox went down to 82%. Denies any chest pain. His contacted Dr. Stevens's office and was told to come into the emergency department. While patient was at a alliance party 2 weeks ago, and he was possibly infected there. He has not been vaccinated for COVID 19 yet. His chest x-ray in the emergency department shows bilateral diffuse interstitial opacities. He is d-dimer was 5.76, and CTA chest showed no evidence of pulmonary embolism, and additional extensive bilateral pneumonia with underlying pulmonary emphysema. Denies lower extremity swelling or calf pain, lower extremity Dopplers were negative for DVT. Plasma lactic acid was 2.4, BUN was 30, creatinine is 1.08, AST was 100, ALT was 86, troponin was elevated to 0.035, 0.065, and 0.069, proBNP was 472, pro calcitonin level was negative at 0.14. His COVID 19 PCR was positive. Review of significant hypoxia, and risk of further deterioration the decision was made to transfer the patient to the intensive care unit. His was notified. Patient is outside the window for Remdesivir, but will receive Tocilizumab, IL-6 monoclonal antibody. He required doses of lorazepam for anxiety, with affect. She will be placed on intermediate dose of anticoagulation with Lovenox 50 mg subcu twice daily The patient is seen today 02/11/2021 and follow-up in the intensive care unit. He was transferred here based on his increasing oxygen requirements. He is currently on BiPAP 12/5 and 100% FiO2. Chest x-ray continues to show diffuse increased lung markings present bilaterally. 0.9 normal saline at 75 ML's per hour. He did receive tocilizumab. One unit of convalescent plasma. Blood cultures reveal no growth. White count 7.6. Hemoglobin 17.2. Lymphocytes 1.52. Sodium 138. Potassium 5.0. Creatinine 0.78. LDH 2339. C-reactive protein 38.9. Pro calcitonin 0.14. He remains on dexamethasone, Lovenox, vitamin supplements. Objective - Vital Signs Vital signs: Vital Signs Temp 98 F 02/11/21 08:00 Pulse 64 02/11/21 11:00 Resp 34 H 02/11/21 11:00 BP 132/70 02/11/21 11:00 Pulse Ox 91 L 02/11/21 11:00 Intake & Output 02/10/21 02/11/21 02/11/21 18:59 06:59 18:59 Intake Total 1361 1100 595 Output Total 400 950 Balance 961 150 595 Intake: IV 825 375 Sodium Chloride 0.9% 1, 825 375 000 ml @ 75 mls/hr IV . [id number] [facility] Rx#:[id number] Intake, IV Titration 700 75 Amount Sodium Chloride 0.9% 1, 600 75 000 ml @ 75 mls/hr IV . [id number] [facility] Rx#:[id number] Tocilizumab 800 mg In 100 Sodium Chloride 0.9% 60 ml @ 100 mls/hr IV ONCE ONE Rx#:[id number] Oral 340 200 220 Blood Product 291 Ffp Convalescent Plasma 291 Cpd Unit [id number] Other 30 Ffp Convalescent Plasma 30 Cpd Unit [id number] Output: Urine 400 950 Other: Voiding Method Urinal # Voids 1 - Exam GENERAL EXAM: Alert, more calm and cooperative 65-year-old male, currently on BiPAP 12/500% FiO2 alternating with Airvo at 60 L and FiO2 of 90%, comfortable in no apparent distress. HEAD: Normocephalic/atraumatic. EYES: Normal reaction of pupils, equal size. Conjunctiva pink, sclera white. NOSE: Clear with pink turbinates. THROAT: No erythema or exudates. NECK: No masses, no JVD, no thyroid enlargement, no adenopathy. CHEST: No chest wall deformity. Symmetrical expansion. LUNGS: Equal air entry with diffuse bibasilar crackles CVS: Regular rate and rhythm, normal S1 and S2, no gallops, no murmurs, no rubs ABDOMEN: Soft, nontender. No hepatosplenomegaly, normal bowel sounds, no guarding or rigidity. EXTREMITIES: No clubbing, no edema, no cyanosis, 2+ pulses and upper and lower extremities. MUSCULOSKELETAL: Muscle strength and tone normal. SPINE: No scoliosis or deformity SKIN: No rashes CENTRAL NERVOUS SYSTEM: No focal deficits, tone is normal in all 4 extremities. PSYCHIATRIC: Alert and oriented -3. Appropriate affect. Intact judgment and insight. - Labs CBC & Chem 7: 02/11/21 04:30 02/11/21 04:30 Labs: Abnormal Lab Results - Last 24 Hours (Table) 02/10/21 02/11/21 02/11/21 Range/Units 01:07 04:30 04:30 Hct 53.2 H (39.0-53.0) % Nucleated RBCs 2 H (0-0) /100 WBC Chloride 109 H (98-107) mmol/L BUN 25 H (9-20) mg/dL Calcium 8.2 L (8.4-10.2) mg/dL AST 101 H (17-59) U/L ALT 105 H (4-49) U/L Lactate Dehydrogenase 2339 H (313-618) U/L Creatine Kinase 269 H (55-170) U/L C-Reactive Protein 38.9 H (<10.0) mg/L Albumin 3.1 L (3.5-5.0) g/dL Procalcitonin 0.14 H (0.02-0.09) ng/mL Microbiology - Last 24 Hours (Table) 02/09/21 21:17 Blood Culture - Preliminary Blood No Growth after 24 hours 02/09/21 21:00 Blood Culture - Preliminary Blood No Growth after 24 hours Assessment and Plan Assessment: 1 Acute hypoxemic respiratory failure, related to COVID 19 pneumonia, with onset of symptoms 14 days ago, outside the window for Remdesivir. Received tocilizumab and 1 unit of convalescent plasma. 2 Dyspnea, cough, recent inflammatory markers related to the above 3 Increased d-dimer of 5.[address] evidence of pulmonary embolism and no evidence of DVT on lower extremity Dopplers 4 Troponin leak, likely related to severe COVID 19 pneumonia with severe hypox ic respiratory failure, and cardiology is following 5 Former smoker, carries [id number] smoking history, currently in remission, suspect underlying COPD 6 Marijuana use Plan: The patient was seen and evaluated by Dr. Miranda Chest x-ray and labs reviewed Continue dexamethasone, Lovenox, vitamin supplements Received tocilizumab and convalescent plasma Continue to titrate the FiO2 as tolerated May be placed on AirVo if tolerated over BiPAP Continue to monitor him closely here in the ICU We will continue to follow make further recommendations based on his clinical status Critical care time 35 minutes I, the cosigning physician, performed a history & physical examination of the patient. Lungs sounds with bibasilar coarse crackles. Maintaining good O2 saturations in the 90s on 100% FiO2 via the BiPAP. I discussed the assessment and plan of care with my nurse practitioner, Valeria Cruz. I attest to the above note as dictated by her.
[2021-02-11 13:40] LABS: Appearance,Urine Clear (Clear); Bilirubin,Urine Negative (Negative); Blood,Urine Small (Negative); Color,Urine Yellow; Glucose,Urine (UA) Negative (Negative); Ketones,Urine Negative (Negative); Leukocyte Esterase,Urine Negative (Negative); Mucus,Urine Rare /hpf; Nitrite,Urine Negative (Negative); Protein,Urine 1+ (Negative); Specific Gravity,Urine 1.027 (1.001-1.035); WBC,Urine 1 /hpf (0-5)
[2021-02-11] MEDS: LORazepam 2 MG/ML INJ IV PRN ×2 (15:31→20:42)
[2021-02-11 17:01] LABS: ABG Base Excess 0.9 mmol/L; ABG HCO3 25 mmol/L (21-25); ABG Oxygen Saturation 90.6 % (94-97); ABG PCO2 38 mmHg (35-45); ABG PH 7.43 (7.35-7.45); ABG PO2 60 mmHg (83-108); ABG TCO2 26 mmol/L (19-24)
[2021-02-11 17:19] LABS: Glucose,Whole Blood 91 mg/dL (75-99)
--- NOTE | 2021-02-11 23:47 | P.PN ---
Subjective This is a pleasant 65 years old male with no significant past medical history who presents because of one-week history of dyspnea associated with high fever at 101.3 at home. Associated with coughing. He feels generally weak but no significant chest pain. Patient dyspnea was getting more worse and he was not feeling well so family brought him to the hospital. His symptoms started about 2 weeks Patient is poor historian and is oxygen saturation was troponin while he was on high flow nasal cannula and he has to be placed on BiPAP and sent to the ICU from emergency room Patient is ex-smoker, he quit a few months ago. Used to smoke 2 packs per day. Patient is tachypneic with a breathing rate of 30, he is saturating any to on 60 L/m of oxygen via high flow cannula. A febrile. CBC, and BMP are unremarkable. Liver enzymes slightly elevated with AST 100 and ALT 86 and normal bilirubin of 0.7. D-dimer is elevated at 5.7. Elevated troponin 0.03, 0.06, 0.06 Chronic varus detected CTA of the chest: No evidence of PE. Extensive bilateral pneumonia, emphysema EKG showing sinus tachycardia at 107 with the bundle branch block and QTC 523 Chest x-ray: Bilateral infiltrates Ultrasound of the lower extremities is negative for DVT on both sides In ED he was started on Lovenox, normal saline at 75 mL/h, one-time dose of tocilizumab per pulmonary team , vitamin C, zinc and vitamin D. Patient has been evaluated by pulmonary service, he was started on BiPAP and admitted to the ICU 02/11/2021 Patient remains in the ICU, monitored closely for his hypoxia, he needs BiPAP most of the time of continuously. Has increased inflammatory markers with ferritin 1519, LDH 2339 and selective 1438. D-dimer is elevated at 5.7 and he is placed on therapeutic dose of Lovenox. Chest x-ray showing bilateral infiltrate Remains on dexamethasone and vitamin cocktail for Covid, he also received 1 dose of tocilizumab and convalescent plasma Also he is on metoprolol and Lovenox 50 mg twice a day Review of Systems CONSTITUTIONAL: No fever, no malaise, no fatigue. HEENT: No recent visual problems or hearing problems. Denied any sore throat. CARDIOVASCULAR: No orthopnea, PND, no palpitations, no syncope. PULMONARY: No chest wall tenderness, no hemoptysis. GASTROINTESTINAL: No diarrhea, no nausea, no vomiting, no abdominal pain. Normoactive bowel sounds. NEUROLOGICAL: No headaches, no weakness, no numbness. Active Medications Generic Name Dose Route Start Last Admin Trade Name Freq PRN Reason Stop Dose Admin Acetaminophen 650 mg 02/09/21 22:58 Acetaminophen Tab 325 Mg Tab PO Q6HR PRN Mild Pain or Fever > 100.5 Ascorbic Acid 500 mg 02/10/21 09:00 02/11/21 08:20 Ascorbic Acid 500 Mg Tab PO 500 mg DAILY [facility] Administration Aspirin 81 mg 02/10/21 10:15 02/11/21 08:20 Aspirin 81 Mg PO 81 mg DAILY [facility] Administration Cholecalciferol 100 mcg 02/10/21 09:00 02/11/21 08:21 Cholecalciferol 25 Mcg (1000 Iu) Tablet PO 100 mcg DAILY [facility] Administration Dexamethasone Sodium Phosphate 6 mg 02/10/21 09:00 02/11/21 08:20 Dexamethasone Sod Phosphate 10 Mg/Ml 1 Ml Vial IV 6 mg DAILY [facility] Administration Enoxaparin Sodium 50 mg 02/10/21 21:00 02/11/21 20:01 Enoxaparin 60 Mg/0.6 Ml Syringe SQ 50 mg BID [facility] Administration Famotidine 20 mg 02/10/21 21:00 02/11/21 20:01 Famotidine 20 Mg/2 Ml Vial IV 20 mg Q12H [facility] Administration Sodium Chloride 1,000 mls @ 75 mls/hr 02/09/21 23:00 02/11/21 18:25 Saline 0.9% IV 75 mls/hr .[id number] [facility] Administration Lisinopril 2.5 mg 02/11/21 09:00 02/11/21 09:51 Lisinopril 2.5 Mg Tab PO 2.5 mg DAILY [facility] Administration Lorazepam 1 mg 02/10/21 09:19 02/11/21 20:42 Lorazepam 2 Mg/Ml Inj IV 1 mg Q6HR PRN Administration Anxiety Metoprolol Tartrate 25 mg 02/10/21 10:15 02/11/21 20:01 Metoprolol Tartrate 25 Mg Tab PO 25 mg BID [facility] Administration Naloxone HCl 0.2 mg 02/09/21 22:58 Naloxone 0.4 Mg/Ml 1 Ml Vial IV Q2M PRN Opioid Reversal Zinc Sulfate 220 mg 02/10/21 09:00 02/11/21 08:20 Zinc Sulfate 220 Mg Cap PO 220 mg DAILY [facility] Administration Objective - Vital Signs Vital signs: Vital Signs Temp 98.1 F 02/11/21 12:00 Pulse 63 02/11/21 12:00 Resp 36 H 02/11/21 12:00 BP 126/73 02/11/21 12:00 Pulse Ox 92 L 02/11/21 12:00 Intake & Output 02/10/21 02/11/21 02/11/21 18:59 06:59 18:59 Intake Total 1361 1100 770 Output Total 400 950 Balance 961 150 770 Intake: IV 825 450 Sodium Chloride 0.9% 1, 825 450 000 ml @ 75 mls/hr IV . [id number] [facility] Rx#:[id number] Intake, IV Titration 700 75 Amount Sodium Chloride 0.9% 1, 600 75 000 ml @ 75 mls/hr IV . [id number] [facility] Rx#:[id number] Tocilizumab 800 mg In 100 Sodium Chloride 0.9% 60 ml @ 100 mls/hr IV ONCE ONE Rx#:[id number] Oral 340 200 320 Blood Product 291 Ffp Convalescent Plasma 291 Cpd Unit [id number] Other 30 Ffp Convalescent Plasma 30 Cpd Unit [id number] Output: Urine 400 950 Other: Voiding Method Urinal # Voids 1 - Exam -GENERAL: The patient is alert and oriented x3, not in any acute distress. Patient is on BiPAP HEENT: Pupils are round and equally reacting to light. EOMI. No scleral icterus. No conjunctival pallor. Normocephalic, atraumatic. No pharyngeal erythema. No thyromegaly. CARDIOVASCULAR: S1 and S2 present. No murmurs, rubs, or gallops. PULMONARY: Chest is clear to auscultation, no wheezing or crackles. ABDOMEN: Soft, nontender, nondistended, normoactive bowel sounds. No palpable organomegaly. MUSCULOSKELETAL: No joint swelling or deformity. EXTREMITIES: No cyanosis, clubbing, or pedal edema. NEUROLOGICAL: Gross neurological examination did not reveal any focal deficits. SKIN: No rashes. no petechiae. - Labs CBC & Chem 7: 02/11/21 04:30 02/11/21 04:30 Labs: Abnormal Lab Results - Last 24 Hours (Table) 02/11/21 02/11/21 02/11/21 Range/Units 04:30 04:30 13:15 Hct 53.2 H (39.0-53.0) % Nucleated RBCs 2 H (0-0) /100 WBC Chloride 109 H (98-107) mmol/L BUN 25 H (9-20) mg/dL Calcium 8.2 L (8.4-10.2) mg/dL Ferritin 1519.5 H (22.0-322.0) ng/mL AST 101 H (17-59) U/L ALT 105 H (4-49) U/L Lactate Dehydrogenase 2339 H (313-618) U/L Creatine Kinase 269 H (55-170) U/L C-Reactive Protein 38.9 H (<10.0) mg/L Albumin 3.1 L (3.5-5.0) g/dL Urine Protein 1+ H (Negative) Urine Blood Small H (Negative) Urine Mucus Rare H (None) /hpf Microbiology - Last 24 Hours (Table) 02/09/21 21:17 Blood Culture - Preliminary Blood No Growth after 24 hours 02/09/21 21:00 Blood Culture - Preliminary Blood No Growth after 24 hours Assessment and Plan Assessment: Acute bilateral Covid pneumonia Acute hypoxic respiratory failure secondary to above Elevated inflammatory markers Elevated troponin, secondary to Covid infection. Elevated d-dimer, with no evidence of PE on CTA of the chest Mildly elevated liver enzymes, secondary to covid Height lactic acid, came back to normal Emphysema Plan: This is a pleasant 65 years old male who presents with Covid. Continue with vit uribe C, vitamin D and zinc. Continue with steroids. Pulmonary and cardiology consult Continue with BiPAP and monitor closely while in the ICU Labs and medication were reviewed.. Continue same treatment. Continue with symptomatic treatment. Resume home medication. Monitor lytes and vitals. DVT and GI prophylaxis. Further recommendations depends on the clinical course of the patient DVT prophylaxis: Subcutaneous Lovenox GI Prophylaxis: Pepcid PT/OT: Pending Prognosis is guarded
[2021-02-12] MEDS: LORazepam 2 MG/ML INJ IV PRN (03:17)
[2021-02-12 04:08] LABS: Glucose,Whole Blood 94 mg/dL (75-99)
[2021-02-12 04:22] LABS: ABG Base Excess -4.6 mmol/L; ABG HCO3 23 mmol/L (21-25); ABG Oxygen Saturation 45.9 % (94-97); ABG PCO2 51 mmHg (35-45); ABG PH 7.26 (7.35-7.45); ABG TCO2 24 mmol/L (19-24); Allen Test Performed? Yes
[2021-02-12] MEDS ORDERED: propofoL 100 ML IV ONE (04:39)
[2021-02-12] MEDS ORDERED: ATROPINE SULFATE 0.1 MG/ML 10ML SYRINGE ONE (05:02)
[2021-02-12] MEDS ORDERED: EPINEPHrine 10 ML SYRINGE (0.1 MG/ML) ONE (05:03)
[2021-02-12] MEDS ORDERED: SODIUM CHLORIDE 0.9% 250 ML BAG ONE (05:03)
[2021-02-12] MEDS ORDERED: SODIUM BICARB 8.4% 50 ML SYR (1 MEQ/ML) ONE (05:03)
[2021-02-12] MEDS ORDERED: NOREPINEPHRINE 1 MG/ML 4 ML VIAL IV ONE (05:03)
--- NOTE | 2021-02-12 05:29 | P.EN ---
Code Blue Note Activated at 5:03 am. Arrived on the scene shortly after. The patient was admitted to the medicine service for COVID pneumonia. He had gradually worsening hypoxia for which he was intubated while in the MICU. Shortly after intubation, the patient developed bradycardia and subsequent lost his pulse. CPR was initiated with Epi IVP x 1 and Sodium bicarb IVP x 1 given with ROSC at 5:05 am. Please refer to the code sheet for further details. The family, primary tean, and intensivists were notified. The patient continues to be critical. STAT labs ordered.
[2021-02-12 05:31] LABS: ABG Base Excess -10.5 mmol/L; ABG HCO3 21 mmol/L (21-25); ABG Oxygen Saturation 41.7 % (94-97); ABG TCO2 23 mmol/L (19-24); Allen Test Performed? Yes
[2021-02-12] MEDS ORDERED: CISATRACURIUM 2 MG/ML 5 ML VIAL IV ONE (05:48)
[2021-02-12 06:01] LABS: Basophils # (A) 0.2 k/uL (0-0.2); Basophils % (A) 2 %; Eosinophils # (A) 0.1 k/uL (0-0.7); Eosinophils % (A) 1 %; HGB 17.1 gm/dL (13.0-17.5); Hypochromasia Moderate; Lymphocytes # (A) 3.7 k/uL (1.0-4.8); Lymphocytes % (A) 33 %; MCH 31.7 pg (25.0-35.0); MCHC 30.7 g/dL (31.0-37.0); Macrocytosis Slight; Mean Platelet Volume 8.2; Monocytes # (A) 0.3 k/uL (0-1.0); Monocytes % (A) 2 %; Neutrophils # (A) 6.6 k/uL (1.3-7.7); Neutrophils % (A) 60 %; Platelet Count 270 k/uL (150-450); RBC 5.39 m/uL (4.30-5.90); RDW 14.6 % (11.5-15.5); WBC 11.1 k/uL (3.8-10.6)
[2021-02-12 06:05] LABS: HCT 52.9 % (39.0-53.0)
--- NOTE | 2021-02-12 06:07 | XR ---
EXAM: XR Chest, 1 View CLINICAL HISTORY: ITS.REASON XR Reason: Intubation TECHNIQUE: Frontal view of the chest. COMPARISON: February 11, 2021 FINDINGS: Lungs: Severe fibrotic changes diffuse interstitial infiltrates throughout both lungs greatest inferiorly. This appears increased since previous. Pleural space: Unremarkable. No pneumothorax. Heart: The cardiac silhouette appears mildly enlarged but is partially obscured. Mediastinum: Unremarkable. Bones/joints: Unremarkable. Tubes, lines and devices: There is an endotracheal tube in place with the tip of the level of the clavicles, 7.5 cm from the martinez. There is an NG tube extending below the diaphragm. IMPRESSION: 1. There is an endotracheal tube in place with the tip of the level of the clavicles, 7.5 cm from the martinez. There is an NG tube extending below the diaphragm. 2. Severe fibrotic changes diffuse interstitial infiltrates throughout both lungs greatest inferiorly. This appears increased since previous.
[2021-02-12 06:30] LABS: Albumin 2.9 g/dL (3.5-5.0); C Reactive Protein 20.5 mg/L (<10.0); Calcium 7.8 mg/dL (8.4-10.2); Potassium 4.3 mmol/L (3.5-5.1); Total Bilirubin 0.9 mg/dL (0.2-1.3)
[2021-02-12] MEDS: CISATRACURIUM 200 MG in SODIUM CHLORIDE 0.9% 180 ML IV SCH ×2 (06:33→18:23)
[2021-02-12] MEDS: SODIUM CHLORIDE 0.9% 1,000 ML IV SCH ×4 (06:37→21:43)
[2021-02-12 07:08] LABS: ABG PO2 31 mmHg (83-108)
[2021-02-12 07:10] LABS: ABG PCO2 84 mmHg (35-45); ABG PO2 37 mmHg (83-108)
--- NOTE | 2021-02-12 07:32 | XR ---
EXAMINATION TYPE: XR chest 1V DATE OF EXAM: 02/12/2021 COMPARISON: 02/12/2021 INDICATION: Check tube placement TECHNIQUE: Single frontal view of the chest is obtained. FINDINGS: The heart size is normal. The pulmonary vasculature is normal. Diffuse increased lung markings are present. These are stable Endotracheal tube is present with the tip 6.9 cm above the martinez. This could be advanced couple cent imeters. Nasogastric tube transverses the thorax with tip within the abdomen. IMPRESSION: 1. Diffuse increased lung markings, stable. 2. Endotracheal tube tip 6.9 cm above the martinez. This could be advanced approximately 2 cm. 3. Nasogastric tube transversing the thorax.
[2021-02-12] MEDS: ENOXAPARIN 60 MG/0.6 ML SYRINGE SQ SCH ×2 (08:07→21:34)
[2021-02-12] MEDS: CHLORHEXIDINE GLUCONATE 15 ML CUP MUCOUS MEM SCH ×2 (08:08→21:34)
[2021-02-12] MEDS: METOPROLOL TARTRATE 25 MG TAB PO SCH ×2 (08:08→21:42)
[2021-02-12] MEDS: ZINC SULFATE 220 MG CAP PO SCH (08:08)
[2021-02-12] MEDS: ASCORBIC ACID 500 MG TAB PO SCH (08:08)
[2021-02-12] MEDS: DEXAMETHASONE SOD PHOSPHATE 10 MG/ML 1 ML VIAL IV SCH (08:08)
[2021-02-12] MEDS: ASPIRIN 81 MG PO SCH (08:08)
[2021-02-12] MEDS: CHOLECALCIFEROL 25 MCG (1000 IU) TABLET PO SCH (08:08)
[2021-02-12] MEDS: FAMOTIDINE 20 MG/2 ML VIAL IV SCH ×2 (08:13→21:34)
--- NOTE | 2021-02-12 09:44 | XR ---
EXAMINATION TYPE: XR chest 1V confirm line [facility] DATE OF EXAM: 02/12/2021 COMPARISON: 02/12/2021 INDICATION: Line placement TECHNIQUE: Single frontal view of the chest is obtained. FINDINGS: The heart size is normal. The pulmonary vasculature is distinct. Diffuse increased lung markings are present bilaterally. There is placement of a left central venous catheter with the tip in the distal superior vena cava re gion. No pneumothorax is evident. Endotracheal tube tip is 4 cm above the martinez. Nasogastric tube tr ansverses the thorax. IMPRESSION: 1. Diffuse increased lung markings, stable. 2. Placement of a left central venous catheter with the tip in the distal superior vena cava region. No pneumothorax is evident.
--- NOTE | 2021-02-12 10:07 | P.PN ---
Subjective Progress Note Date: 02/12/21 Principal diagnosis: Abnormal cardiac enzymes This is a 65-year-old gentleman who was admitted to the hospital with acute hypoxic respiratory failure secondary to COVID-19 infection and we consulted to see the patient because of abnormal troponin. The echocardiogram showed severe cardiomyopathy. On today follow-up 02/12/2021 the patient continues to be intubated and continue s to be on mechanical ventilation. Unfortunately he is not doing well from the respiratory standpoint overview. Hemodynamically he is stable. He is on metoprolol as well as lisinopril which was admitted yesterday. From a cardiovascular standpoint of view, we'll continue the current medical regimen. Objective - Vital Signs Vital signs: Vital Signs Temp 97.6 F 02/12/21 04:00 Pulse 65 02/12/21 05:00 Resp 25 H 02/12/21 04:00 BP 129/61 02/12/21 04:00 Pulse Ox 88 L 02/12/21 04:00 Intake & Output 02/11/21 02/12/21 02/12/21 18:59 06:59 18:59 Intake Total 7886 535 0528 Output Total 1050 900 150 Balance 245 -75 1925 Intake: IV 285 496 9469 Sodium Chloride 0.9% 1, 975 825 75 000 ml @ 75 mls/hr IV . [id number] [facility] Rx#:[id number] Sodium Chloride 0.9% 1, 2000 000 ml @ 999 mls/hr IV . Q1H1M [facility] Rx#:[id number] Oral 320 Output: Urine 1050 900 150 Other: Voiding Method Urinal Indwelling Catheter # Voids 1 # Bowel Movements 1 - Labs CBC & Chem 7: 02/12/21 05:35 02/12/21 05:35 Labs: Abnormal Lab Results - Last 24 Hours (Table) 02/11/21 02/11/21 02/11/21 Range/Units 04:30 04:30 13:15 WBC (3.8-10.6) k/uL MCV (80.0-100.0) fL MCHC (31.0-37.0) g/dL Nucleated RBCs 2 H (0-0) /100 WBC D-Dimer (<0.60) mg/L FEU ABG pH (7.35-7.45) ABG pCO2 (35-45) mmHg ABG pO2 (83-108) mmHg ABG Total CO2 (19-24) mmol/L ABG O2 Saturation (94-97) % Chloride (98-107) mmol/L Carbon Dioxide (22-30) mmol/L BUN (9-20) mg/dL Creatinine (0.66-1.25) mg/dL Glucose (74-99) mg/dL Calcium (8.4-10.2) mg/dL Ferritin 1519.5 H (22.0-322.0) ng/mL AST (17-59) U/L ALT (4-49) U/L Alkaline Phosphatase (38-126) U/L Lactate Dehydrogenase (313-618) U/L Creatine Kinase (55-170) U/L C-Reactive Protein (<10.0) mg/L Total Protein (6.3-8.2) g/dL Albumin (3.5-5.0) g/dL Urine Protein 1+ H (Negative) Urine Blood Small H (Negative) Urine Mucus Rare H (None) /hpf 02/11/21 02/12/21 02/12/21 Range/Units 16:59 04:18 05:25 WBC (3.8-10.6) k/uL MCV (80.0-100.0) fL MCHC (31.0-37.0) g/dL Nucleated RBCs (0-0) /100 WBC D-Dimer (<0.60) mg/L FEU ABG pH 7.26 L 7.00 L* (7.35-7.45) ABG pCO2 51 H 84 H* (35-45) mmHg ABG pO2 60 L 31 L* 37 L* (83-108) mmHg ABG Total CO2 26 H (19-24) mmol/L ABG O2 Saturation 90.6 L 45.9 L 41.7 L (94-97) % Chloride (98-107) mmol/L Carbon Dioxide (22-30) mmol/L BUN (9-20) mg/dL Creatinine (0.66-1.25) mg/dL Glucose (74-99) mg/dL Calcium (8.4-10.2) mg/dL Ferritin (22.0-322.0) ng/mL AST (17-59) U/L ALT (4-49) U/L Alkaline Phosphatase (38-126) U/L Lactate Dehydrogenase (313-618) U/L Creatine Kinase (55-170) U/L C-Reactive Protein (<10.0) mg/L Total Protein (6.3-8.2) g/dL Albumin (3.5-5.0) g/dL Urine Protein (Negative) Urine Blood (Negative) Urine Mucus (None) /hpf 02/12/21 02/12/21 02/12/21 Range/Units 05:35 05:35 05:35 WBC 11.1 H (3.8-10.6) k/uL MCV 103.5 H D (80.0-100.0) fL MCHC 30.7 L (31.0-37.0) g/dL Nucleated RBCs (0-0) /100 WBC D-Dimer >34.10 H (<0.60) mg/L FEU ABG pH (7.35-7.45) ABG pCO2 (35-45) mmHg ABG pO2 (83-108) mmHg ABG Total CO2 (19-24) mmol/L ABG O2 Saturation (94-97) % Chloride 108 H (98-107) mmol/L Carbon Dioxide 20 L (22-30) mmol/L BUN 24 H (9-20) mg/dL Creatinine 1.31 H (0.66-1.25) mg/dL Glucose 166 H (74-99) mg/dL Calcium 7.8 L (8.4-10.2) mg/dL Ferritin (22.0-322.0) ng/mL AST 350 H (17-59) U/L ALT 316 H (4-49) U/L Alkaline Phosphatase 171 H (38-126) U/L Lactate Dehydrogenase 4124 H (313-618) U/L Creatine Kinase 267 H (55-170) U/L C-Reactive Protein 20.5 H (<10.0) mg/L Total Protein 6.0 L (6.3-8.2) g/dL Albumin 2.9 L (3.5-5.0) g/dL Urine Protein (Negative) Urine Blood (Negative) Urine Mucus (None) /hpf Microbiology - Last 24 Hours (Table) 02/09/21 21:17 Blood Culture - Preliminary Blood No Growth after 48 hours 02/09/21 21:00 Blood Culture - Preliminary Blood No Growth after 48 hours Assessment and Plan Assessment: Assessment #1 acute hypoxic respiratory failure #2 mildly abnormal troponin #3 cardiomyopathy #4 multiple comorbid conditions Plan #1 continue the current medical regimen #2 continue metoprolol and lisinopril #3 follow-up with the patient on when necessary case
[2021-02-12 10:33] LABS: ABG HCO3 27 mmol/L (21-25); ABG Oxygen Saturation 82.6 % (94-97); ABG PCO2 81 mmHg (35-45); ABG PH 7.15 (7.35-7.45); ABG PO2 61 mmHg (83-108)
--- NOTE | 2021-02-12 11:18 | OP ---
OPERATIVE REPORT PROCEDURE: Right radial art line. PREOP DIAGNOSIS: Frequent blood draws and blood gas monitoring. POSTOP DIAGNOSIS: Frequent blood draws and blood gas monitoring. OPERATORS: Dr. Miranda and Dr. Cruz. ARTERIAL LINE PLACEMENT: Indications: Hemodynamic monitoring. A time-out was completed verifying correct patient, procedure, site, positioning, and implant(s) or special equipment if applicable. Joseph's test was performed to ensure adequate perfusion. The patient's right wrist was prepped and draped in sterile fashion. 1% Lidocaine was used to anesthetize the area. An 18G Arrow arterial line was introduced into the radial artery. The catheter was threaded over the guide wire and the needle was removed with appropriate pulsatile blood return. Blood loss was minimal. The catheter was then sutured in place to the skin and a sterile dressing applied. Perfusion to the extremity distal to the point of catheter insertion was checked and found to be adequate. The patient tolerated the procedure well and there were no complications. There was informed consent and universal timeout. The patient tolerated procedure well. The catheter was sutured in place. A sterile dressing was applied by the nurse. There was no immediate complication. MMODL / IJN: [id number] /
--- NOTE | 2021-02-12 11:18 | PCN ---
PROCEDURE NOTE PROCEDURE PERFORMED: Left subclavian triple-lumen catheter. PREOP DIAGNOSIS: Administration of fluids and pressors. POSTOP DIAGNOSIS: Administration of fluids and pressors. OPERATORS: Dr. Miranda and Dr. Cruz. TRIPLE LUMEN CATHETER PLACEMENT: A time-out was completed verifying correct patient, procedure, site, positioning, and implant(s) or special equipment if applicable. The patient was placed in a dependent position appropriate for triple lumen catheter placement based on the vein to be cannulated. The patient's left shoulder was prepped and draped in sterile fashion. 1% Lidocaine was used to anesthetize the surrounding skin area. A triple lumen 9F Cordis catheter was introduced into the left subclavian vein using Seldinger technique. The catheter was threaded smoothly over the guide wire and appropriate blood return was obtained. Each lumen of the catheter was evacuated of air and flushed with sterile saline. The catheter was then sutured in place to the skin and a sterile dressing applied. Perfusion to the extremity distal to the point of catheter insertion was checked and found to be adequate. There was no immediate complication. There was informed consent and universal timeout. The patient's procedure took place in room #255. There was good blood return from all 3 ports. The catheter was sutured in place. Sterile dressing was applied by the nurse. The catheter was seen in the right atrium. A chest x-ray was ordered to check placement and rule out pneumothorax. MMODL / IJN: [id number] /
[2021-02-12] MEDS ORDERED: SODIUM CHLORIDE 0.9% 1,000 ML IV ONE (11:21)
[2021-02-12] MEDS ORDERED: SODIUM CHLORIDE 0.9% 500 ML 500 ML IV ONE (12:08)
[2021-02-12] MEDS: NOREPINEPHRINE 8 MG in SODIUM CHLORIDE 0.9% 250 ML IV SCH (12:14)
[2021-02-12 12:37] LABS: Glucose,Whole Blood 120 mg/dL (75-99)
--- NOTE | 2021-02-12 13:04 | P.PN ---
Subjective Progress Note Date: 02/12/21 Principal diagnosis: Acute hypoxemic respiratory failure secondary to CoVID 19 pneumonia 65-year-old -[place] male patient with past history of smoking which is currently in remission, and patient does smoke marijuana on a regular basis, who presented to the emergency department on 02/09/2021 with 2 week history of increased shortness of breath. At the time of my evaluation patient is quite restless, is a poor historian, he is removing his BiPAP currently, he is re quiring close monitoring as he is easily desaturating he was placed on Airvo at 60 L and FiO2 of 90% and his pulse ox went down to 82%. Denies any chest pain. His contacted Dr. Stevens's office and was told to come into the emergency department. While patient was at a [facility] 2 weeks ago, and he was possibly infected there. He has not been vaccinated for COVID 19 yet. His chest x-ray in the emergency department shows bilateral diffuse interstitial opacities. He is d-dimer was 5.76, and CTA chest showed no evidence of pulmonary embolism, and additional extensive bilateral pneumonia with underlying pulmonary emphysema. Denies lower extremity swelling or calf pain, lower extremity Dopplers were negative for DVT. Plasma lactic acid was 2.4, BUN was 30, creatinine is 1.08, AST was 100, ALT was 86, troponin was elevated to 0.035, 0.065, and 0.069, proBNP was 472, pro calcitonin level was negative at 0.14. His COVID 19 PCR was positive. Review of significant hypoxia, and risk of further deterioration the decision was made to transfer the patient to the intensive care unit. His was notified. Patient is outside the window for Remdesivir, but will receive Tocilizumab, IL-6 monoclonal antibody. He required doses of lorazepam for anxiety, with affect. She will be placed on intermediate dose of anticoagulation with Lovenox 50 mg subcu twice daily The patient is seen today 02/11/2021 and follow-up in the intensive care unit. He was transferred here based on his increasing oxygen requirements. He is currently on BiPAP 12/5 and 100% FiO2. Chest x-ray continues to show diffuse increased lung markings present bilaterally. 0.9 normal saline at 75 ML's per hour. He did receive tocilizumab. One unit of convalescent plasma. Blood cultures reveal no growth. White count 7.6. Hemoglobin 17.2. Lymphocytes 1.52. Sodium 138. Potassium 5.0. Creatinine 0.78. LDH 2339. C-reactive protein 38.9. Pro calcitonin 0.14. He remains on dexamethasone, Lovenox, vitamin supplements. The patient is seen today 02/12/2021 in follow-up in the intensive care unit. Early this morning the patient became increasingly fatigued, hypoxemic and required intubation and mechanical ventilatory support. He is as initially on assist control mode at a rate of 24, tidal volume 450, FiO2 100% and a PEEP of 5. Morning blood gases reveal a P O2 of 37, pCO2 84, pH 7.00. The respiratory rate was increased to 30 and PEEP increased to 10. Follow-up blood gases revealed a pO2 of 61, P O2 of 81, pH 7.15. He is sedated on propofol 50 mcg/kg/m. Paralyzed on Nimbex at 2 mcg/kg/m. 0.9 normal saline at 75 ML's per hour. Norepinephrine at 0.05 mcg/kg/m. Chest x-ray continues to show diffuse bilateral patchy infiltrates. ET tube advanced 2 cm. Blood cultures reveal no growth. White count 11.1. Hemoglobin 17.1. D-dimer greater than 34. Sodium 144. Potassium 4.3. Bicarb 20. Creatinine 1.31. AST 350. ALT 316. LDH 4124. C-reactive protein 20.5. He did receive convalescent plasma. He is on therapeutic Lovenox, dexamethasone, vitamin supplements. Objective - Vital Signs Vital signs: Vital Signs Temp 97.6 F 02/12/21 04:00 Pulse 65 02/12/21 05:00 Resp 25 H 02/12/21 04:00 BP 129/61 02/12/21 04:00 Pulse Ox 88 L 02/12/21 04:00 Intake & Output 02/11/21 02/12/21 02/12/21 18:59 06:59 18:59 Intake Total 0621 803 4598.0 Output Total 1050 900 485 Balance 245 -75 3314.0 Intake: IV 834 766 4356 Sodium Chloride 0.9% 1, 975 825 450 000 ml @ 75 mls/hr IV . [id number] [facility] Rx#:[id number] Sodium Chloride 0.9% 1, 2000 000 ml @ 999 mls/hr IV . Q1H1M [facility] Rx#:[id number] Intake, IV Titration 1279.0 Amount Cisatracurium 200 mg In 59.0 Sodium Chloride 0.9% 180 ml @ 1 MCG/KG/MIN 5.987 mls/hr IV .Q24H [facility] Rx#: [id number] Sodium Chloride 0.9% 1, 1000 000 ml @ 999 mls/hr IV . Q1H1M [facility] Rx#:[id number] propofoL 1,000 mg In 220 Empty Bag 1 bag @ Titrate IV .Q0M [facility] Rx#: [id number] Oral 320 Tube Feeding 70 Output: Urine 1050 900 485 Other: Voiding Method Urinal Indwelling Catheter Indwelling Catheter # Voids 1 # Bowel Movements 1 - Exam GENERAL EXAM: Intubated, sedated, paralyzed 65-year-old male, currently on the mechanical ventilator with an FiO2 of 100% and a PEEP of 10, comfortable in no apparent distress. HEAD: Normocephalic/atraumatic. EYES: Fish reaction of pupils, equal size. Conjunctiva pink, sclera white. NOSE: Clear with pink turbinates. THROAT: Oral endotracheal and gastric tube secured in place. No erythema or exudates. NECK: No masses, no JVD, no thyroid enlargement, no adenopathy. CHEST: No chest wall deformity. Symmetrical expansion. LUNGS: Equal air entry with diffuse bibasilar crackles CVS: Regular rate and rhythm, normal S1 and S2, no gallops, no murmurs, no rubs ABDOMEN: Soft, nontender. No hepatosplenomegaly, normal bowel sounds, no guarding or rigidity. EXTREMITIES: No clubbing, no edema, no cyanosis, 2+ pulses and upper and lower extremities. MUSCULOSKELETAL: Muscle strength and tone normal. SPINE: No scoliosis or deformity SKIN: No rashes CENTRAL NERVOUS SYSTEM: Sedated, paralyzed, tone is normal in all 4 extremities. PSYCHIATRIC: Sedated, paralyzed - Labs CBC & Chem 7: 02/12/21 05:35 02/12/21 05:35 Labs: Abnormal Lab Results - Last 24 Hours (Table) 02/11/21 02/11/21 02/12/21 Range/Units 13:15 16:59 04:18 WBC (3.8-10.6) k/uL MCV (80.0-100.0) fL MCHC (31.0-37.0) g/dL D-Dimer (<0.60) mg/L FEU ABG pH 7.26 L (7.35-7.45) ABG pCO2 51 H (35-45) mmHg ABG pO2 60 L 31 L* (83-108) mmHg ABG HCO3 (21-25) mmol/L ABG Total CO2 26 H (19-24) mmol/L ABG O2 Saturation 90.6 L 45.9 L (94-97) % Chloride (98-107) mmol/L Carbon Dioxide (22-30) mmol/L BUN (9-20) mg/dL Creatinine (0.66-1.25) mg/dL Glucose (74-99) mg/dL POC Glucose (mg/dL) (75-99) mg/dL Calcium (8.4-10.2) mg/dL AST (17-59) U/L ALT (4-49) U/L Alkaline Phosphatase (38-126) U/L Lactate Dehydrogenase (313-618) U/L Creatine Kinase (55-170) U/L C-Reactive Protein (<10.0) mg/L Total Protein (6.3-8.2) g/dL Albumin (3.5-5.0) g/dL Urine Protein 1+ H (Negative) Urine Blood Small H (Negative) Urine Mucus Rare H (None) /hpf 02/12/21 02/12/21 02/12/21 Range/Units 05:25 05:35 05:35 WBC (3.8-10.6) k/uL MCV (80.0-100.0) fL MCHC (31.0-37.0) g/dL D-Dimer >34.10 H (<0.60) mg/L FEU ABG pH 7.00 L* (7.35-7.45) ABG pCO2 84 H* (35-45) mmHg ABG pO2 37 L* (83-108) mmHg ABG HCO3 (21-25) mmol/L ABG Total CO2 (19-24) mmol/L ABG O2 Saturation 41.7 L (94-97) % Chloride 108 H (98-107) mmol/L Carbon Dioxide 20 L (22-30) mmol/L BUN 24 H (9-20) mg/dL Creatinine 1.31 H (0.66-1.25) mg/dL Glucose 166 H (74-99) mg/dL POC Glucose (mg/dL) (75-99) mg/dL Calcium 7.8 L (8.4-10.2) mg/dL AST 350 H (17-59) U/L ALT 316 H (4-49) U/L Alkaline Phosphatase 171 H (38-126) U/L Lactate Dehydrogenase 4124 H (313-618) U/L Creatine Kinase 267 H (55-170) U/L C-Reactive Protein 20.5 H (<10.0) mg/L Total Protein 6.0 L (6.3-8.2) g/dL Albumin 2.9 L (3.5-5.0) g/dL Urine Protein (Negative) Urine Blood (Negative) Urine Mucus (None) /hpf 02/12/21 02/12/21 02/12/21 Range/Units 05:35 10:23 12:35 WBC 11.1 H (3.8-10.6) k/uL MCV 103.5 H D (80.0-100.0) fL MCHC 30.7 L (31.0-37.0) g/dL D-Dimer (<0.60) mg/L FEU ABG pH 7.15 L* (7.35-7.45) ABG pCO2 81 H* (35-45) mmHg ABG pO2 61 L (83-108) mmHg ABG HCO3 27 H (21-25) mmol/L ABG Total CO2 (19-24) mmol/L ABG O2 Saturation 82.6 L (94-97) % Chloride (98-107) mmol/L Carbon Dioxide (22-30) mmol/L BUN (9-20) mg/dL Creatinine (0.66-1.25) mg/dL Glucose (74-99) mg/dL POC Glucose (mg/dL) 120 H (75-99) mg/dL Calcium (8.4-10.2) mg/dL AST (17-59) U/L ALT (4-49) U/L Alkaline Phosphatase (38-126) U/L Lactate Dehydrogenase (313-618) U/L Creatine Kinase (55-170) U/L C-Reactive Protein (<10.0) mg/L Total Protein (6.3-8.2) g/dL Albumin (3.5-5.0) g/dL Urine Protein (Negative) Urine Blood (Negative) Urine Mucus (None) /hpf Microbiology - Last 24 Hours (Table) 02/09/21 21:17 Blood Culture - Preliminary Blood No Growth after 48 hours 02/09/21 21:00 Blood Culture - Preliminary Blood No Growth after 48 hours Assessment and Plan Assessment: 1 Acute hypoxemic respiratory failure, related to COVID 19 pneumonia, with onset of symptoms 14 days ago, outside the window for Remdesivir. Received tocilizumab and 1 unit of convalescent plasma. Continued to deteriorate and intubated and placed on mechanical ventilator on 02/12/2021. 2 Elevated inflammatory markers related to the above 3 Increased d-dimer of greater than 34, placed on therapeutic Lovenox, no CT e vidence of pulmonary embolism and no evidence of DVT on lower extremity Dopplers 4 Troponin leak, likely related to severe COVID 19 pneumonia with severe hypoxic respiratory failure, and cardiology is following 5 Transaminitis secondary to above 5 Former smoker, carries [id number] smoking history, currently in remission, suspect underlying COPD 6 Marijuana use Plan: The patient was seen and evaluated by Dr. Miranda Chest x-ray and ABGs and labs reviewed He required intubation mechanical ventilatory support early this morning Currently on FiO2 of 100% and a PEEP of 10 Continue dexamethasone, Lovenox, vitamin supplements Received tocilizumab and convalescent plasma Follow-up chest x-ray, ABGs, inflammatory markers in the a.m. Prognosis is guarded We will continue to follow make further recommendations based on his clinical status Critical care time 40 minutes, not including procedures I, the cosigning physician, performed a history & physical examination of the patient. Lungs sounds with bibasilar coarse crackles. Maintaining O2 saturations in the 90s on 100% FiO2 and a PEEP of 10 via the mechanical ventilator. I discussed the assessment and plan of care with my nurse practitioner, Valeria Cruz. I attest to the above note as dictated by her.
[2021-02-12 14:41] LABS: ABG Base Excess -2.1 mmol/L; ABG HCO3 25 mmol/L (21-25); ABG PCO2 60 mmHg (35-45); ABG PH 7.24 (7.35-7.45); ABG PO2 92 mmHg (83-108); ABG TCO2 27 mmol/L (19-24)
[2021-02-12 14:43] LABS: Allen Test Performed? no
[2021-02-12 16:06] LABS: MCV 103.5 fL (80.0-100.0)
[2021-02-12 18:22] LABS: Glucose,Whole Blood 109 mg/dL (75-99)
[2021-02-12 23:33] LABS: Glucose,Whole Blood 124 mg/dL (75-99)
--- NOTE | 2021-02-13 00:18 | P.PN ---
Subjective This is a pleasant 65 years old male with no significant past medical history who presents because of one-week history of dyspnea associated with high fever at 101.3 at home. Associated with coughing. He feels generally weak but no significant chest pain. Patient dyspnea was getting more worse and he was not feeling well so family brought him to the hospital. His symptoms started about 2 weeks Patient is poor historian and is oxygen saturation was troponin while he was on high flow nasal cannula and he has to be placed on BiPAP and sent to the ICU from emergency room Patient is ex-smoker, he quit a few months ago. Used to smoke 2 packs per day. Patient is tachypneic with a breathing rate of 30, he is saturating any to on 60 L/m of oxygen via high flow cannula. A febrile. CBC, and BMP are unremarkable. Liver enzymes slightly elevated with AST 100 and ALT 86 and normal bilirubin of 0.7. D-dimer is elevated at 5.7. Elevated troponin 0.03, 0.06, 0.06 Chronic varus detected CTA of the chest: No evidence of PE. Extensive bilateral pneumonia, emphysema EKG showing sinus tachycardia at 107 with the bundle branch block and QTC 523 Chest x-ray: Bilateral infiltrates Ultrasound of the lower extremities is negative for DVT on both sides In ED he was started on Lovenox, normal saline at 75 mL/h, one-time dose of tocilizumab per pulmonary team , vitamin C, zinc and vitamin D. Patient has been evaluated by pulmonary service, he was started on BiPAP and admitted to the ICU 02/11/2021 Patient remains in the ICU, monitored closely for his hypoxia, he needs BiPAP most of the time of continuously. Has increased inflammatory markers with ferritin 1519, LDH 2339 and selective 1438. D-dimer is elevated at 5.7 and he is placed on therapeutic dose of Lovenox. Chest x-ray showing bilateral infiltrate Remains on dexamethasone and vitamin cocktail for Covid, he also received 1 dose of tocilizumab and convalescent plasma Also he is on metoprolol and Lovenox 50 mg twice a day 02/12/2021 Patient seen and examined in the ICU for Covid pneumonia, this morning his respiratory status deteriorated and he had to be intubated and placed on mechanical ventilation, also blood pressure was troponin even with boluses of normal saline and he has to be placed on Levophed at 0.05. Vent setting showing PEEP 10, respiratory rate 30, dental: 450 and FiO2 is 100%. Dictated hydrogenase almost doubled to 4124 and C-reactive protein is high at 20. D-dimer more than 34. Liver enzymes slightly elevated. She remains on metoprolol 25 mg, Lovenox 50 mg dexamethasone, vitamin C, D and zinc. Also he is started on small dose of Levophed. And metoprolol Review of Systems CONSTITUTIONAL: No fever, no malaise, no fatigue. HEENT: No recent visual problems or hearing problems. Denied any sore throat. CARDIOVASCULAR: No orthopnea, PND, no palpitations, no syncope. PULMONARY: No chest wall tenderness, no hemoptysis. GASTROINTESTINAL: No diarrhea, no nausea, no vomiting, no abdominal pain. Normoactive bowel sounds. NEUROLOGICAL: No headaches, no weakness, no numbness. Active Medications Generic Name Dose Route Start Last Admin Trade Name Freq PRN Reason Stop Dose Admin Acetaminophen 650 mg 02/09/21 22:58 Acetaminophen Tab 325 Mg Tab PO Q6HR PRN Mild Pain or Fever > 100.5 Ascorbic Acid 500 mg 02/10/21 09:00 02/12/21 08:08 Ascorbic Acid 500 Mg Tab PO 500 mg DAILY [facility] Administration Aspirin 81 mg 02/10/21 10:15 02/12/21 08:08 Aspirin 81 Mg PO 81 mg DAILY [facility] Administration Chlorhexidine Gluconate 15 ml 02/12/21 09:00 02/12/21 21:34 Chlorhexidine Gluconate 15 Ml Cup MUCOUS MEM 15 ml BID [facility] Administration Cholecalciferol 100 mcg 02/10/21 09:00 02/12/21 08:08 Cholecalciferol 25 Mcg (1000 Iu) Tablet PO 100 mcg DAILY [facility] Administration Dexamethasone Sodium Phosphate 6 mg 02/10/21 09:00 02/12/21 08:08 Dexamethasone Sod Phosphate 10 Mg/Ml 1 Ml Vial IV 6 mg DAILY [facility] Administration Enoxaparin Sodium 50 mg 02/10/21 21:00 02/12/21 21:34 Enoxaparin 60 Mg/0.6 Ml Syringe SQ 50 mg BID [facility] Administration Famotidine 20 mg 02/10/21 21:00 02/12/21 21:34 Famotidine 20 Mg/2 Ml Vial IV 20 mg Q12H [facility] Administration Sodium Chloride 1,000 mls @ 75 mls/hr 02/09/21 23:00 02/12/21 21:43 Saline 0.9% IV 75 mls/hr .[id number] [facility] Administration Cisatracurium Besylate 200 mg/ 200 mls @ 5.987 mls/hr 02/12/21 06:00 02/12/21 18:23 Sodium Chloride IV 2 mcg/kg/min .Q24H [facility] 11.975 mls/hr Administration Protocol 1 MCG/KG/MIN Propofol 1,000 mg/ IV Solution 100 mls @ 0 mls/hr 02/12/21 06:30 02/12/21 23:28 IV 50 mcg/kg/min .Q0M [facility] 29.937 mls/hr Administration Protocol Titrate Norepinephrine Bitartrate 8 mg 258 mls @ 9.655 mls/hr 02/12/21 12:00 02/12/21 23:35 / Sodium Chloride IV 0.25 mcg/kg/min .Q24H [facility] 48.273 mls/hr Titration Protocol 0.05 MCG/KG/MIN Lisinopril 2.5 mg 02/11/21 09:00 02/12/21 11:04 Lisinopril 2.5 Mg Tab PO Not Given DAILY [facility] Lorazepam 1 mg 02/10/21 09:19 02/12/21 03:17 Lorazepam 2 Mg/Ml Inj IV 1 mg Q6HR PRN Administration Anxiety Metoprolol Tartrate 25 mg 02/10/21 10:15 02/12/21 21:42 Metoprolol Tartrate 25 Mg Tab PO 25 mg BID [facility] Administration Naloxone HCl 0.2 mg 02/09/21 22:58 Naloxone 0.4 Mg/Ml 1 Ml Vial IV Q2M PRN Opioid Reversal Zinc Sulfate 220 mg 02/10/21 09:00 02/12/21 08:08 Zinc Sulfate 220 Mg Cap PO 220 mg DAILY [facility] Administration Objective - Vital Signs Vital signs: Vital Signs Temp 97.6 F 02/12/21 04:00 Pulse 65 02/12/21 05:00 Resp 25 H 02/12/21 04:00 BP 129/61 02/12/21 04:00 Pulse Ox 88 L 02/12/21 04:00 Intake & Output 02/11/21 02/12/21 02/12/21 18:59 06:59 18:59 Intake Total 2825 221 0502.607 Output Total 1050 900 485 Balance 245 -75 3918.607 Intake: IV 937 165 2263 Sodium Chloride 0.9% 1, 975 825 525 000 ml @ 75 mls/hr IV . [id number] [facility] Rx#:[id number] Sodium Chloride 0.9% 1, 2000 000 ml @ 999 mls/hr IV . Q1H1M [facility] Rx#:[id number] Intake, IV Titration 1808.607 Amount Cisatracurium 200 mg In 70.8 Sodium Chloride 0.9% 180 ml @ 1 MCG/KG/MIN 5.987 mls/hr IV .Q24H [facility] Rx#: [id number] Norepinephrine 8 mg In 17.807 Sodium Chloride 0.9% 250 ml @ 0.05 MCG/KG/MIN 9. 655 mls/hr IV .Q24H [facility] Rx#:[id number] Sodium Chloride 0.9% 1, 1000 000 ml @ 999 mls/hr IV . Q1H1M [facility] Rx#:[id number] Sodium Chloride 0.9% 500 500 ml 500 ml @ 999 mls/hr IV .Q31M [facility] Rx#:[id number] propofoL 1,000 mg In 220 Empty Bag 1 bag @ Titrate IV .Q0M [facility] Rx#: [id number] Oral 320 Tube Feeding 70 Output: Urine 1050 900 485 Other: Voiding Method Urinal Indwelling Catheter Indwelling Catheter # Voids 1 # Bowel Movements 1 - Exam -GENERAL: The patient is intubated and sedated is on BiPAP HEENT: Pupils are round and equally reacting to light. EOMI. No scleral icterus. No conjunctival pallor. Normocephalic, atraumatic. No pharyngeal erythema. No thyromegaly. CARDIOVASCULAR: S1 and S2 present. No murmurs, rubs, or gallops. PULMONARY: Chest is clear to auscultation, no wheezing or crackles. ABDOMEN: Soft, nontender, nondistended, normoactive bowel sounds. No palpable organomegaly. MUSCULOSKELETAL: No joint swelling or deformity. EXTREMITIES: No cyanosis, clubbing, or pedal edema. NEUROLOGICAL: Gross neurological examination did not reveal any focal deficits. SKIN: No rashes. no petechiae. - Labs CBC & Chem 7: 02/12/21 05:35 02/12/21 05:35 Labs: Abnormal Lab Results - Last 24 Hours (Table) 02/11/21 02/12/21 02/12/21 Range/Units 16:59 04:18 05:25 WBC (3.8-10.6) k/uL MCV (80.0-100.0) fL MCHC (31.0-37.0) g/dL D-Dimer (<0.60) mg/L FEU ABG pH 7.26 L 7.00 L* (7.35-7.45) ABG pCO2 51 H 84 H* (35-45) mmHg ABG pO2 60 L 31 L* 37 L* (83-108) mmHg ABG HCO3 (21-25) mmol/L ABG Total CO2 26 H (19-24) mmol/L ABG O2 Saturation 90.6 L 45.9 L 41.7 L (94-97) % Chloride (98-107) mmol/L Carbon Dioxide (22-30) mmol/L BUN (9-20) mg/dL Creatinine (0.66-1.25) mg/dL Glucose (74-99) mg/dL POC Glucose (mg/dL) (75-99) mg/dL Calcium (8.4-10.2) mg/dL AST (17-59) U/L ALT (4-49) U/L Alkaline Phosphatase (38-126) U/L Lactate Dehydrogenase (313-618) U/L Creatine Kinase (55-170) U/L C-Reactive Protein (<10.0) mg/L Total Protein (6.3-8.2) g/dL Albumin (3.5-5.0) g/dL 02/12/21 02/12/21 02/12/21 Range/Units 05:35 05:35 05:35 WBC 11.1 H (3.8-10.6) k/uL MCV 103.5 H D (80.0-100.0) fL MCHC 30.7 L (31.0-37.0) g/dL D-Dimer >34.10 H (<0.60) mg/L FEU ABG pH (7.35-7.45) ABG pCO2 (35-45) mmHg ABG pO2 (83-108) mmHg ABG HCO3 (21-25) mmol/L ABG Total CO2 (19-24) mmol/L ABG O2 Saturation (94-97) % Chloride 108 H (98-107) mmol/L Carbon Dioxide 20 L (22-30) mmol/L BUN 24 H (9-20) mg/dL Creatinine 1.31 H (0.66-1.25) mg/dL Glucose 166 H (74-99) mg/dL POC Glucose (mg/dL) (75-99) mg/dL Calcium 7.8 L (8.4-10.2) mg/dL AST 350 H (17-59) U/L ALT 316 H (4-49) U/L Alkaline Phosphatase 171 H (38-126) U/L Lactate Dehydrogenase 4124 H (313-618) U/L Creatine Kinase 267 H (55-170) U/L C-Reactive Protein 20.5 H (<10.0) mg/L Total Protein 6.0 L (6.3-8.2) g/dL Albumin 2.9 L (3.5-5.0) g/dL 02/12/21 02/12/21 Range/Units 10:23 12:35 WBC (3.8-10.6) k/uL MCV (80.0-100.0) fL MCHC (31.0-37.0) g/dL D-Dimer (<0.60) mg/L FEU ABG pH 7.15 L* (7.35-7.45) ABG pCO2 81 H* (35-45) mmHg ABG pO2 61 L (83-108) mmHg ABG HCO3 27 H (21-25) mmol/L ABG Total CO2 (19-24) mmol/L ABG O2 Saturation 82.6 L (94-97) % Chloride (98-107) mmol/L Carbon Dioxide (22-30) mmol/L BUN (9-20) mg/dL Creatinine (0.66-1.25) mg/dL Glucose (74-99) mg/dL POC Glucose (mg/dL) 120 H (75-99) mg/dL Calcium (8.4-10.2) mg/dL AST (17-59) U/L ALT (4-49) U/L Alkaline Phosphatase (38-126) U/L Lactate Dehydrogenase (313-618) U/L Creatine Kinase (55-170) U/L C-Reactive Protein (<10.0) mg/L Total Protein (6.3-8.2) g/dL Albumin (3.5-5.0) g/dL Microbiology - Last 24 Hours (Table) 02/09/21 21:17 Blood Culture - Preliminary Blood No Growth after 48 hours 02/09/21 21:00 Blood Culture - Preliminary Blood No Growth after 48 hours Assessment and Plan Assessment: Acute bilateral Covid pneumonia Acute hypoxic respiratory failure secondary to above Elevated inflammatory markers Severe cardiomyopathy EF: 20-25% Elevated troponin, secondary to Covid infection. Elevated d-dimer, with no evidence of PE on CTA of the chest Mildly elevated liver enzymes, secondary to covid Height lactic acid, came back to normal Emphysema Plan: This is a pleasant 65 years old male who presents with Covid. Non-STEMI Continue with vitamin C, vitamin D and zinc. Continue with steroids. Pulmonary and cardiology consult Labs and medication were reviewed.. Continue same treatment. Continue with symptomatic treatment. Resume home medication. Monitor lytes and vitals. DVT and GI prophylaxis. Further recommendations depends on the clinical course of the patient DVT prophylaxis: Subcutaneous Lovenox GI Prophylaxis: Pepcid PT/OT: Pending Prognosis is guarded
[2021-02-13] MEDS: NOREPINEPHRINE 8 MG in SODIUM CHLORIDE 0.9% 250 ML IV SCH ×3 (02:02→22:05)
[2021-02-13 02:09] LABS: Glucose,Whole Blood 133 mg/dL (75-99)
[2021-02-13 04:58] LABS: Basophils # (A) 0.1 k/uL (0-0.2); Basophils % (A) 1 %; Eosinophils % (A) 0 %; HCT 49.8 % (39.0-53.0); HGB 16.9 gm/dL (13.0-17.5); Hypochromasia Slight; Lymphocytes # (A) 0.8 k/uL (1.0-4.8); Lymphocytes % (A) 8 %; MCH 33.9 pg (25.0-35.0); MCHC 33.9 g/dL (31.0-37.0); MCV 100.1 fL (80.0-100.0); Macrocytosis Slight; Mean Platelet Volume 7.5; Monocytes # (A) 0.3 k/uL (0-1.0); Monocytes % (A) 3 %; Neutrophils # (A) 8.7 k/uL (1.3-7.7); Neutrophils % (A) 87 %; Platelet Count 170 k/uL (150-450); RBC 4.98 m/uL (4.30-5.90); RDW 14.7 % (11.5-15.5); WBC 9.9 k/uL (3.8-10.6)
[2021-02-13 05:00] LABS: ABG Base Excess -1.1 mmol/L; ABG HCO3 27 mmol/L (21-25); ABG PCO2 64 mmHg (35-45); ABG PH 7.23 (7.35-7.45); ABG PO2 109 mmHg (83-108); ABG TCO2 29 mmol/L (19-24); Allen Test Performed? Yes
[2021-02-13 05:16] LABS: ALT 307 U/L (4-49); African American GFR (CKD) >90 (>60 ml/min/1.73 sqM); Albumin 3.1 g/dL (3.5-5.0); Anion Gap 11 mmol/L; Blood Urea Nitrogen 26 mg/dL (9-20); Calcium 7.7 mg/dL (8.4-10.2); Carbon Dioxide 24 mmol/L (22-30); Chloride 110 mmol/L (98-107); Creatine Kinase 685 U/L (55-170); Glucose 127 mg/dL (74-99); Non-African American GFR(CKD) 83 (>60 ml/min/1.73 sqM); Sodium 145 mmol/L (137-145); Total Bilirubin 0.7 mg/dL (0.2-1.3); Total Protein 6.3 g/dL (6.3-8.2)
[2021-02-13 05:50] LABS: AST 229 U/L (17-59)
[2021-02-13 05:51] LABS: Alkaline Phosphatase 169 U/L (38-126)
[2021-02-13 05:52] LABS: Potassium 6.2 mmol/L (3.5-5.1)
[2021-02-13] MEDS: CISATRACURIUM 200 MG in SODIUM CHLORIDE 0.9% 180 ML IV SCH ×2 (05:53→22:05)
[2021-02-13 06:25] LABS: C Reactive Protein 17.8 mg/L (<10.0)
--- NOTE | 2021-02-13 07:01 | P.PN ---
Subjective Progress Note Date: 02/13/21 Acute hypoxemic respiratory failure secondary to CoVID 19 pneumonia 02/13/2021, the patient is being seen for follow-up in intensive care unit. This is a 65-year-old -[place] male patient was admitted with Covid 19 related pneumonia and the patient was initially given high flow oxygen and later on BiPAP and because of ongoing failure, the patient was intubated and placed on a mechanical ventilator. He is a chronic smoker. He also smokes marijuana. The patient was intubated yesterday on 02/12/2021 because of respiratory failure related to Covid 19 related pneumonia. The patient is currently on assist control mode of ventilation. The patient is a rate of 36 with FiO2 of 9 90% 0% and a PEEP of 15 and tidal volume of 500. Your pressures around 41 metastatic pressure of 39. The patient remains sedated on propofol running at 60 mcg/kg per minute and the patient is also paralyzed at 2 mcg/kg per minute. Post intubation, the patient requires also pressors and currently norepinephrine is running at 0.02mcg/kg/per minute. The patient is mechanical ventilator. The patient normal saline at the rate of 75 mL an hour. Chest x-ray showing diffuse but the pulmonary patchy infiltrates. ET tube is in a good location. Note that the patient to telemetry markers from yesterday were quite elevated. LDH level was 4124 and the CRP was 20.5. The patient is currently on Decadron. The patient is also on Lovenox and the patient also received convalescent plasma and Tocilizumab. The LFTs are slightly elevated and the patient has some mild transaminitis related to COVID 19. Based on elevation of the d-dimer, the patient is being given 50 mg of Lovenox which is a half a milligram per KG every 12 hours. The blood gases from today showing a pH of 7.23 with a pCO2 of 63 and pO2 of 109. This was done and FiO2 of 90%. Blood work from today shows a d- dimer of more than 34, potassium level is down to 6.2 and the patient will need obviously D50 insulin along with 2 A of sodium bicarb. This hyperkalemia is related to acidosis. The patient's liver function tests are also elevated as the patient has mild transaminitis, ALT is 229, AST 307, LDH is 2716, pro calcitonin is at 0.14, CRP was 17.8. Objective - Vital Signs Vital signs: Vital Signs Temp 99.6 F 02/13/21 04:00 Pulse 93 02/13/21 06:00 Resp 36 H 02/13/21 06:00 BP 148/72 02/13/21 06:00 Pulse Ox 98 02/13/21 06:00 Intake & Output 02/12/21 02/12/21 02/13/21 06:59 18:59 06:59 Intake Total 825 5214.605 1805.466 Output Total 900 1390 1198 Balance -75 3824.605 607.466 Weight 101.2 kg Intake: IV 825 2900 933 Pressure bag 33 Sodium Chloride 0.9% 1, 825 900 900 000 ml @ 75 mls/hr IV . [id number] MARIO Rx#:[id number] Sodium Chloride 0.9% 1, 2000 000 ml @ 999 mls/hr IV . Q1H1M MARIO Rx#:[id number] Intake, IV Titration 2244.605 872.466 Amount Cisatracurium 200 mg In 247.904 137.713 Sodium Chloride 0.9% 180 ml @ 1 MCG/KG/MIN 5.987 mls/hr IV .Q24H MARIO Rx#: [id number] Norepinephrine 8 mg In 79.406 382.994 Sodium Chloride 0.9% 250 ml @ 0.05 MCG/KG/MIN 9. 655 mls/hr IV .Q24H MARIO Rx#:[id number] Sodium Chloride 0.9% 1, 1000 000 ml @ 999 mls/hr IV . Q1H1M ONE Rx#:[id number] Sodium Chloride 0.9% 500 500 ml 500 ml @ 999 mls/hr IV .Q31M ONE Rx#:[id number] propofoL 1,000 mg In 417.295 351.759 Empty Bag 1 bag @ Titrate IV .Q0M MARIO Rx#: [id number] Tube Feeding 70 Output: Gastric Drainage 400 350 Urine 900 990 848 Other: Voiding Method Indwelling Catheter Indwelling Catheter Indwelling Catheter # Bowel Movements 1 ABP, PAP, CO, CI - Last Documented Arterial Blood Pressure 131/61 - Exam GENERAL EXAM: Intubated, sedated, paralyzed 65-year-old male, currently on the mechanical ventilator , comfortable in no apparent distress. HEAD: Normocephalic/atraumatic. EYES: Fish reaction of pupils, equal size. Conjunctiva pink, sclera white. NOSE: Clear with pink turbinates. THROAT: Oral endotracheal and gastric tube secured in place. No erythema or exudates. NECK: No masses, no JVD, no thyroid enlargement, no adenopathy. CHEST: No chest wall deformity. Symmetrical expansion. LUNGS: Equal air entry with diffuse bibasilar crackles CVS: Regular rate and rhythm, normal S1 and S2, no gallops, no murmurs, no rubs ABDOMEN: Soft, nontender. No hepatosplenomegaly, normal bowel sounds, no guarding or rigidity. EXTREMITIES: No clubbing, no edema, no cyanosis, 2+ pulses and upper and lower extremities. MUSCULOSKELETAL: Muscle strength and tone normal. SPINE: No scoliosis or deformity SKIN: No rashes CENTRAL NERVOUS SYSTEM: Sedated, paralyzed, tone is normal in all 4 extremities. PSYCHIATRIC: Sedated, paralyzed - Labs CBC & Chem 7: 02/13/21 04:44 02/13/21 06:00 Labs: Abnormal Lab Results - Last 24 Hours (Table) 02/12/21 02/12/21 02/12/21 Range/Units 04:18 05:25 05:35 MCV (80.0-100.0) fL Neutrophils # (1.3-7.7) k/uL Lymphocytes # (1.0-4.8) k/uL D-Dimer (<0.60) mg/L FEU ABG pH 7.26 L 7.00 L* (7.35-7.45) ABG pCO2 51 H 84 H* (35-45) mmHg ABG pO2 31 L* 37 L* (83-108) mmHg ABG HCO3 (21-25) mmol/L ABG Total CO2 (19-24) mmol/L ABG O2 Saturation 45.9 L 41.7 L (94-97) % Potassium (3.5-5.1) mmol/L Chloride (98-107) mmol/L BUN (9-20) mg/dL Glucose (74-99) mg/dL POC Glucose (mg/dL) (75-99) mg/dL Calcium (8.4-10.2) mg/dL AST (17-59) U/L ALT (4-49) U/L Alkaline Phosphatase (38-126) U/L Lactate Dehydrogenase 4124 H (313-618) U/L Creatine Kinase (55-170) U/L C-Reactive Protein (<10.0) mg/L Albumin (3.5-5.0) g/dL 02/12/21 02/12/21 02/12/21 Range/Units 05:35 10:23 12:35 MCV 103.5 H D (80.0-100.0) fL Neutrophils # (1.3-7.7) k/uL Lymphocytes # (1.0-4.8) k/uL D-Dimer (<0.60) mg/L FEU ABG pH 7.15 L* (7.35-7.45) ABG pCO2 81 H* (35-45) mmHg ABG pO2 61 L (83-108) mmHg ABG HCO3 27 H (21-25) mmol/L ABG Total CO2 (19-24) mmol/L ABG O2 Saturation 82.6 L (94-97) % Potassium (3.5-5.1) mmol/L Chloride (98-107) mmol/L BUN (9-20) mg/dL Glucose (74-99) mg/dL POC Glucose (mg/dL) 120 H (75-99) mg/dL Calcium (8.4-10.2) mg/dL AST (17-59) U/L ALT (4-49) U/L Alkaline Phosphatase (38-126) U/L Lactate Dehydrogenase (313-618) U/L Creatine Kinase (55-170) U/L C-Reactive Protein (<10.0) mg/L Albumin (3.5-5.0) g/dL 02/12/21 02/12/21 02/12/21 Range/Units 14:35 18:20 23:32 MCV (80.0-100.0) fL Neutrophils # (1.3-7.7) k/uL Lymphocytes # (1.0-4.8) k/uL D-Dimer (<0.60) mg/L FEU ABG pH 7.24 L (7.35-7.45) ABG pCO2 60 H (35-45) mmHg ABG pO2 (83-108) mmHg ABG HCO3 (21-25) mmol/L ABG Total CO2 27 H (19-24) mmol/L ABG O2 Saturation (94-97) % Potassium (3.5-5.1) mmol/L Chloride (98-107) mmol/L BUN (9-20) mg/dL Glucose (74-99) mg/dL POC Glucose (mg/dL) 109 H 124 H (75-99) mg/dL Calcium (8.4-10.2) mg/dL AST (17-59) U/L ALT (4-49) U/L Alkaline Phosphatase (38-126) U/L Lactate Dehydrogenase (313-618) U/L Creatine Kinase (55-170) U/L C-Reactive Protein (<10.0) mg/L Albumin (3.5-5.0) g/dL 02/13/21 02/13/21 02/13/21 Range/Units 02:07 04:44 04:44 MCV 100.1 H (80.0-100.0) fL Neutrophils # 8.7 H (1.3-7.7) k/uL Lymphocytes # 0.8 L (1.0-4.8) k/uL D-Dimer (<0.60) mg/L FEU ABG pH (7.35-7.45) ABG pCO2 (35-45) mmHg ABG pO2 (83-108) mmHg ABG HCO3 (21-25) mmol/L ABG Total CO2 (19-24) mmol/L ABG O2 Saturation (94-97) % Potassium 6.2 H* (3.5-5.1) mmol/L Chloride 110 H (98-107) mmol/L BUN 26 H (9-20) mg/dL Glucose 127 H (74-99) mg/dL POC Glucose (mg/dL) 133 H (75-99) mg/dL Calcium 7.7 L (8.4-10.2) mg/dL AST 229 H (17-59) U/L ALT 307 H (4-49) U/L Alkaline Phosphatase 169 H (38-126) U/L Lactate Dehydrogenase (313-618) U/L Creatine Kinase 685 H (55-170) U/L C-Reactive Protein (<10.0) mg/L Albumin 3.1 L (3.5-5.0) g/dL 02/13/21 02/13/21 02/13/21 Range/Units 04:44 04:44 04:54 MCV (80.0-100.0) fL Neutrophils # (1.3-7.7) k/uL Lymphocytes # (1.0-4.8) k/uL D-Dimer >34.10 H (<0.60) mg/L FEU ABG pH 7.23 L (7.35-7.45) ABG pCO2 64 H (35-45) mmHg ABG pO2 109 H (83-108) mmHg ABG HCO3 27 H (21-25) mmol/L ABG Total CO2 29 H (19-24) mmol/L ABG O2 Saturation (94-97) % Potassium (3.5-5.1) mmol/L Chloride (98-107) mmol/L BUN (9-20) mg/dL Glucose (74-99) mg/dL POC Glucose (mg/dL) (75-99) mg/dL Calcium (8.4-10.2) mg/dL AST (17-59) U/L ALT (4-49) U/L Alkaline Phosphatase (38-126) U/L Lactate Dehydrogenase 2716 H (313-618) U/L Creatine Kinase (55-170) U/L C-Reactive Protein 17.8 H (<10.0) mg/L Albumin (3.5-5.0) g/dL 02/13/21 Range/Units 06:00 MCV (80.0-100.0) fL Neutrophils # (1.3-7.7) k/uL Lymphocytes # (1.0-4.8) k/uL D-Dimer (<0.60) mg/L FEU ABG pH (7.35-7.45) ABG pCO2 (35-45) mmHg ABG pO2 (83-108) mmHg ABG HCO3 (21-25) mmol/L ABG Total CO2 (19-24) mmol/L ABG O2 Saturation (94-97) % Potassium 6.1 H* (3.5-5.1) mmol/L Chloride (98-107) mmol/L BUN (9-20) mg/dL Glucose (74-99) mg/dL POC Glucose (mg/dL) (75-99) mg/dL Calcium (8.4-10.2) mg/dL AST (17-59) U/L ALT (4-49) U/L Alkaline Phosphatase (38-126) U/L Lactate Dehydrogenase (313-618) U/L Creatine Kinase (55-170) U/L C-Reactive Protein (<10.0) mg/L Albumin (3.5-5.0) g/dL Microbiology - Last 24 Hours (Table) 02/09/21 21:17 Blood Culture - Preliminary Blood No Growth after 72 hours 02/09/21 21:00 Blood Culture - Preliminary Blood No Growth after 72 hours Assessment and Plan Plan: 1 Acute hypoxemic respiratory failure, related to COVID 19 pneumonia, with onset of symptoms 14 days ago, outside the window for Remdesivir. Received tocilizumab and 1 unit of convalescent plasma. Continued to deteriorate and intubated and placed on mechanical ventilator on 02/12/2021. Currently, the patient is being seen in follow-up on 02/13/2021. The patient is intubated on a mechanical ventilator. The patient is sedated and paralyzed. The patient is quite synchronous with the mechanical ventilator. Chest x-ray was noted. Blood gases was noted. We will allow her evidence of hypercapnia. The patient has quite elevated d-dimer and the patient will be on Lovenox 60 mg subcu every 12 hours., The peak anesthetic pressures are elevated.. The chest x-ray from today showing diffuse bilateral pulmonary infiltrates worse in the lower lobes bilaterally. The patient left subclavian triple-lumen catheter and orotracheal tube is also in place. 2 Elevated inflammatory markers related to the above 3 Increased d-dimer of greater than 34, placed on therapeutic Lovenox, no CT evidence of pulmonary embolism and no evidence of DVT on lower extremity Dopplers 4 Troponin leak, likely related to severe COVID 19 pneumonia with severe hypoxic respiratory failure, and cardiology is following 5 Transaminitis secondary to above 5 Former smoker, carries [id number] smoking history, currently in remission, suspect underlying COPD 6 Marijuana use 7 acute hyperkalemia, without any EKG changes, likely secondary to respiratory acidosis and permissive hypercapnia Plan: Continue ventilator support, may gradually wean down the FiO2 as tolerated The patient will be given a total of 2 A of sodium bicarb and IV fluids will be switched to bicarb infusion at the rate of 75 mL an hour of 150 mEq of sodium bicarb. The patient is acidotic and the patient has permissive hypercapnia causing hyperkalemia. The patient will be also given D50 insulin Chest x-ray was noted, blood gases was noted Keep sedation with propofol and continue with paralytic with Nimbex and the patient will be given a paralytic holiday Continue dexamethasone, Lovenox, vitamin supplements Received tocilizumab and convalescent plasma Enteral feeding for nutritional support, this will be started today and dietary consultation will be done Monitor inflammatory markers repeat potassium level We will continue to follow make further recommendations based on his clinical status Critical care time > 30 minutes Time with Patient: Greater than 30
[2021-02-13] MEDS ORDERED: INSULIN REGULAR 100 UNIT/ML VIAL IV ONE (07:14)
[2021-02-13] MEDS ORDERED: SODIUM BICARB 8.4% 50 ML SYR (1 MEQ/ML) IV STA (07:14)
[2021-02-13] MEDS ORDERED: DEXTROSE 50% SYRINGE 50 ML IVP STA (07:15)
[2021-02-13] MEDS: DEXTROSE 5% IN WATER 1,000 ML with SODIUM BICARB (1 MEQ/ML) 150 ML IV SCH ×2 (08:07→22:06)
--- NOTE | 2021-02-13 09:06 | XR ---
EXAMINATION TYPE: XR chest 1V portable DATE OF EXAM: 02/13/2021 CLINICAL HISTORY: Difficulty breathing progress study. TECHNIQUE: Single AP portable semiupright view of the chest is obtained. COMPARISON: Chest x-ray from one day earlier and older studies. CTA chest 4 days ago. FINDINGS: Stable endotracheal and orogastric tubes. Stable left subclavian central venous catheter. Persistent reticulonodular increased opacities greatest in the mid to lower lungs. Cardiac silhouette size is stable and mildly enlarged. Osseous structures are intact. IMPRESSION: Persistent bilateral multifocal reticulonodular opacities consistent with covid-19 infect ion. No significant change from most recent x-ray.
[2021-02-13] MEDS: DEXAMETHASONE SOD PHOSPHATE 10 MG/ML 1 ML VIAL IV SCH (09:50)
[2021-02-13] MEDS: METOPROLOL TARTRATE 25 MG TAB PO SCH ×2 (09:50→21:13)
[2021-02-13] MEDS: CHLORHEXIDINE GLUCONATE 15 ML CUP MUCOUS MEM SCH ×2 (09:50→21:12)
[2021-02-13] MEDS: FAMOTIDINE 20 MG/2 ML VIAL IV SCH ×2 (09:50→21:12)
[2021-02-13] MEDS: ASCORBIC ACID 500 MG TAB PO SCH (09:51)
[2021-02-13] MEDS: ASPIRIN 81 MG PO SCH (09:51)
[2021-02-13] MEDS: ENOXAPARIN 60 MG/0.6 ML SYRINGE SQ SCH ×2 (09:54→21:13)
[2021-02-13 10:28] LABS: Ferritin 1679.3 ng/mL (22.0-322.0)
[2021-02-13 12:08] LABS: Glucose,Whole Blood 148 mg/dL (75-99)
[2021-02-13] MEDS: CHOLECALCIFEROL 25 MCG (1000 IU) TABLET PO SCH (12:16)
[2021-02-13] MEDS: ZINC SULFATE 220 MG CAP PO SCH (16:13)
[2021-02-13 17:43] LABS: Glucose,Whole Blood 129 mg/dL (75-99)
[2021-02-13 23:33] LABS: Glucose,Whole Blood 134 mg/dL (75-99)
[2021-02-14 04:44] LABS: Basophils % (A) 0 %; Eosinophils # (A) 0.1 k/uL (0-0.7); Eosinophils % (A) 1 %; HGB 16.5 gm/dL (13.0-17.5); Hypochromasia Slight; Lymphocytes % (A) 11 %; MCH 33.1 pg (25.0-35.0); MCHC 33.7 g/dL (31.0-37.0); MCV 98.2 fL (80.0-100.0); Mean Platelet Volume 8.1; Monocytes # (A) 0.3 k/uL (0-1.0); Monocytes % (A) 3 %; Neutrophils # (A) 7.4 k/uL (1.3-7.7); Neutrophils % (A) 84 %; Platelet Count 168 k/uL (150-450); RBC 4.99 m/uL (4.30-5.90); RDW 14.7 % (11.5-15.5); WBC 8.9 k/uL (3.8-10.6)
[2021-02-14 05:09] LABS: ALT 208 U/L (4-49); AST 91 U/L (17-59); African American GFR (CKD) >90 (>60 ml/min/1.73 sqM); Albumin 2.9 g/dL (3.5-5.0); Alkaline Phosphatase 123 U/L (38-126); Anion Gap 3 mmol/L; Blood Urea Nitrogen 24 mg/dL (9-20); Calcium 8.1 mg/dL (8.4-10.2); Carbon Dioxide 34 mmol/L (22-30); Chloride 102 mmol/L (98-107); Creatine Kinase 194 U/L (55-170); Glucose 121 mg/dL (74-99); LDH 2000 U/L (313-618); Non-African American GFR(CKD) >90 (>60 ml/min/1.73 sqM); Potassium 5.2 mmol/L (3.5-5.1); Sodium 139 mmol/L (137-145); Total Bilirubin 0.6 mg/dL (0.2-1.3); Total Protein 5.7 g/dL (6.3-8.2)
[2021-02-14 05:23] LABS: ABG Base Excess 11.9 mmol/L; ABG HCO3 37 mmol/L (21-25); ABG Oxygen Saturation 91.5 % (94-97); ABG PCO2 64 mmHg (35-45); ABG PH 7.37 (7.35-7.45); ABG PO2 62 mmHg (83-108); ABG TCO2 39 mmol/L (19-24); Allen Test Performed? Yes
[2021-02-14] MEDS: ASCORBIC ACID 500 MG TAB PO SCH (08:02)
[2021-02-14] MEDS: CHLORHEXIDINE GLUCONATE 15 ML CUP MUCOUS MEM SCH ×2 (08:02→20:22)
[2021-02-14] MEDS: DEXAMETHASONE SOD PHOSPHATE 10 MG/ML 1 ML VIAL IV SCH ×3 (08:02→20:22)
[2021-02-14] MEDS: ENOXAPARIN 60 MG/0.6 ML SYRINGE SQ SCH ×2 (08:02→20:23)
[2021-02-14] MEDS: ASPIRIN 81 MG PO SCH (08:02)
[2021-02-14] MEDS: FAMOTIDINE 20 MG/2 ML VIAL IV SCH ×2 (08:02→20:23)
[2021-02-14] MEDS: METOPROLOL TARTRATE 25 MG TAB PO SCH ×2 (08:02→20:23)
[2021-02-14] MEDS: CHOLECALCIFEROL 25 MCG (1000 IU) TABLET PO SCH (08:02)
[2021-02-14] MEDS: ZINC SULFATE 220 MG CAP PO SCH (08:02)
--- NOTE | 2021-02-14 08:16 | XR ---
EXAMINATION TYPE: XR chest 1V portable DATE OF EXAM: 02/14/2021 Comparison: 02/13/2021 Clinical History: 65-year-old male Tube placement Findings: ET tube tip just below the level of the medial clavicular heads. NG tube courses below the diaphragm. Left subclavian CVC tip in the lower SVC. Heart borderline in size. Hyperinflation. Interstitial opa cities diffusely throughout the lungs and more confluent patchy airspace opacities in the lower lungs , right greater than left. No significant change. Impression: COPD with borderline heart size. Diffuse interstitial opacities and more confluent bibasilar airspace disease, right greater than left, persists without significant change.
--- NOTE | 2021-02-14 08:45 | P.PN ---
Subjective Progress Note Date: 02/14/21 02/13/2021, the patient is being seen for follow-up in intensive care unit. This is a 65-year-old -[place] male patient was admitted with Covid 19 related pneumonia and the patient was initially given high flow oxygen and later on BiPAP and because of ongoing failure, the patient was intubated and placed on a mechanical ventilator. He is a chronic smoker. He also smokes marijuana. The patient was intubated yesterday on 02/12/2021 because of respiratory failure related to Covid 19 related pneumonia. The patient is currently on assist control mode of ventilation. The patient is a rate of 36 with FiO2 of 9 90% 0% and a PEEP of 15 and tidal volume of 500. Your pressures around 41 metastatic pressure of 39. The patient remains sedated on propofol running at 60 mcg/kg per minute and the patient is also paralyzed at 2 mcg/kg per minute. Post intubation, the patient requires also pressors and currently norepinephrine is running at 0.02mcg/kg/per minute. The patient is mechanical ventilator. The patient normal saline at the rate of 75 mL an hour. Chest x-ray showing diffuse but the pulmonary patchy infiltrates. ET tube is in a good location. Note that the patient to telemetry markers from yesterday were quite elevated. LDH level was 4124 and the CRP was 20.5. The patient is currently on Decadron. The patient is also on Lovenox and the patient also received convalescent plasma and Tocilizumab. The LFTs are slightly elevated and the patient has some mild transaminitis related to COVID 19. Based on elevation of the d-dimer, the patient is being given 50 mg of Lovenox which is a half a milligram per KG every 12 hours. The blood gases from today showing a pH of 7.23 with a pCO2 of 63 and pO2 of 109. This was done and FiO2 of 90%. Blood work from today shows a d- dimer of more than 34, potassium level is down to 6.2 and the patient will need obviously D50 insulin along with 2 A of sodium bicarb. This hyperkalemia is related to acidosis. The patient's liver function tests are also elevated as the patient has mild transaminitis, ALT is 229, AST 307, LDH is 2716, pro calcitonin is at 0.14, CRP was 17.8. On 02/14/2021, I'm seeing the patient for a follow-up. This is a case of Covid 19 related pneumonia with secondary hypoxic respiratory failure and the patient has been intubated on 02/12/2021 and the patient is currently being seen in follow-up. On today's evaluation, the patient is on propofol which is running at 75 mg/kg per minute and the patient is also on Nimbex at 3 mcg/kg per minute. He is was sedated insipidus with the mechanical ventilator which is currently running at a tidal volume of 500 with a rate of 36 and it PEEP 15 and an FiO2 of 60%. The patient's blood gases from today showed a pH of 7.37 with a pCO2 of 64 and pO2 of 62 and this was on FiO2 of 60%. His chest x-ray from today is showing diffuse bilateral pulmonary infiltrates, essentially unchanged compared to yesterday and ET tube is in a good location. The patient's inflammatory markers on today's evaluation remain elevated although they're improving. The patient's LDH level is down to 2000 and his CRP level is down to 14 and the d- dimer is still elevated at 24 although is improving. The patient is currently on Decadron 6 mg IV every 24 hours. He is also on Lovenox 50 mg subcu 3 times a day. He is also on a bicarb drip this was added yesterday as the patient was having significant acidosis which was mainly respiratory acidosis and secondary hyperkalemia. Potassium level is down to 5.2 and a pH currently is at 7.37 and as such the bicarb infusion can be discontinued. Creatinine is down to 0.7 and his also recovered from his acute kidney injury. He is on enteral feeding for nutritional support and currently this is running at 27 mL an hour of Nepro. The urine output is adequate and the patient's net fluid balance is +2.1 L over the past 24 hours. His weight is currently up to 101 kg. Objective - Vital Signs Vital signs: Vital Signs Temp 99.3 F 02/14/21 04:00 Pulse 98 02/14/21 07:00 Resp 36 H 02/14/21 07:00 BP 116/56 02/14/21 06:30 Pulse Ox 96 02/14/21 07:00 Intake & Output 02/13/21 02/14/2102/14/21 18:59 06:59 18:59 Intake Total 4475.266 7570.188 125 Output Total 685 795 50 Balance 876.998 5895.188 75 Weight 101.2 kg Intake: IV 936 1116 98 .9NS 180 20 Dextrose 5% in Water 1, 825 75 000 ml @ 75 mls/hr IV . [id number] MARIO with Sodium Bicarb (1 Meq/ml) 150 ml Rx#:[id number] Pressure bag 36 36 3 Sodium Chloride 0.9% 1, 900 75 000 ml @ 75 mls/hr IV . [id number] MARIO Rx#:[id number] Intake, IV Titration 683.434 564.188 Amount Cisatracurium 200 mg In 127.135 46.299 Sodium Chloride 0.9% 180 ml @ 1 MCG/KG/MIN 5.987 mls/hr IV .Q24H MARIO Rx#: [id number] Norepinephrine 8 mg In 201.463 57.928 Sodium Chloride 0.9% 250 ml @ 0.05 MCG/KG/MIN 9. 655 mls/hr IV .Q24H MARIO Rx#:[id number] propofoL 1,000 mg In 354.836 459.961 Empty Bag 1 bag @ Titrate IV .Q0M MARIO Rx#: [id number] Tube Feeding 200 27 Other 90 Output: Urine 685 795 50 Other: Voiding Method Indwelling Catheter Indwelling Catheter ABP, PAP, CO, CI - Last Documented Arterial Blood Pressure 117/52 - Exam GENERAL EXAM: Intubated, sedated, paralyzed 65-year-old male, currently on the mechanical ventilator , comfortable in no apparent distress. HEAD: Normocephalic/atraumatic. EYES: Fish reaction of pupils, equal size. Conjunctiva pink, sclera white. NOSE: Clear with pink turbinates. THROAT: Oral endotracheal and gastric tube secured in place. No erythema or exudates. NECK: No masses, no JVD, no thyroid enlargement, no adenopathy. CHEST: No chest wall deformity. Symmetrical expansion. LUNGS: Equal air entry with diffuse bibasilar crackles CVS: Regular rate and rhythm, normal S1 and S2, no gallops, no murmurs, no rubs ABDOMEN: Soft, nontender. No hepatosplenomegaly, normal bowel sounds, no guarding or rigidity. EXTREMITIES: No clubbing, no edema, no cyanosis, 2+ pulses and upper and lower extremities. MUSCULOSKELETAL: Muscle strength and tone normal. SPINE: No scoliosis or deformity SKIN: No rashes CENTRAL NERVOUS SYSTEM: Sedated, paralyzed, tone is normal in all 4 extremities. PSYCHIATRIC: Sedated, paralyzed - Labs CBC & Chem 7: 02/14/21 04:00 02/14/21 04:00 Labs: Abnormal Lab Results - Last 24 Hours (Table) 02/13/21 02/13/21 02/13/21 Range/Units 04:44 12:06 14:11 D-Dimer (<0.60) mg/L FEU ABG pCO2 (35-45) mmHg ABG pO2 (83-108) mmHg ABG HCO3 (21-25) mmol/L ABG Total CO2 (19-24) mmol/L ABG O2 Saturation (94-97) % Potassium 6.2 H* (3.5-5.1) mmol/L Carbon Dioxide (22-30) mmol/L BUN (9-20) mg/dL Glucose (74-99) mg/dL POC Glucose (mg/dL) 148 H (75-99) mg/dL Calcium (8.4-10.2) mg/dL Ferritin 1679.3 H (22.0-322.0) ng/mL AST (17-59) U/L ALT (4-49) U/L Lactate Dehydrogenase (313-618) U/L Creatine Kinase (55-170) U/L C-Reactive Protein (<10.0) mg/L Total Protein (6.3-8.2) g/dL Albumin (3.5-5.0) g/dL 02/13/21 02/13/21 02/13/21 Range/Units 17:27 17:42 23:32 D-Dimer (<0.60) mg/L FEU ABG pCO2 (35-45) mmHg ABG pO2 (83-108) mmHg ABG HCO3 (21-25) mmol/L ABG Total CO2 (19-24) mmol/L ABG O2 Saturation (94-97) % Potassium 5.3 H (3.5-5.1) mmol/L Carbon Dioxide (22-30) mmol/L BUN (9-20) mg/dL Glucose (74-99) mg/dL POC Glucose (mg/dL) 129 H 134 H (75-99) mg/dL Calcium (8.4-10.2) mg/dL Ferritin (22.0-322.0) ng/mL AST (17-59) U/L ALT (4-49) U/L Lactate Dehydrogenase (313-618) U/L Creatine Kinase (55-170) U/L C-Reactive Protein (<10.0) mg/L Total Protein (6.3-8.2) g/dL Albumin (3.5-5.0) g/dL 02/14/21 02/14/21 02/14/21 Range/Units 04:00 04:00 05:14 D-Dimer 24.99 H (<0.60) mg/L FEU ABG pCO2 64 H (35-45) mmHg ABG pO2 62 L (83-108) mmHg ABG HCO3 37 H (21-25) mmol/L ABG Total CO2 39 H (19-24) mmol/L ABG O2 Saturation 91.5 L (94-97) % Potassium 5.2 H (3.5-5.1) mmol/L Carbon Dioxide 34 H (22-30) mmol/L BUN 24 H (9-20) mg/dL Glucose 121 H (74-99) mg/dL POC Glucose (mg/dL) (75-99) mg/dL Calcium 8.1 L (8.4-10.2) mg/dL Ferritin (22.0-322.0) ng/mL AST 91 H (17-59) U/L ALT 208 H (4-49) U/L Lactate Dehydrogenase 2000 H (313-618) U/L Creatine Kinase 194 H (55-170) U/L C-Reactive Protein 14.0 H (<10.0) mg/L Total Protein 5.7 L (6.3-8.2) g/dL Albumin 2.9 L (3.5-5.0) g/dL Microbiology - Last 24 Hours (Table) 02/09/21 21:00 Blood Culture - Preliminary Blood No Growth after 96 hours 02/09/21 21:17 Blood Culture - Preliminary Blood No Growth after 96 hours Assessment and Plan Plan: 1 Acute hypoxemic respiratory failure, related to COVID 19 pneumonia, with onset of symptoms 14 days ago, outside the window for Remdesivir. Received tocilizumab and 1 unit of convalescent plasma. Continued to deteriorate and intubated and placed on mechanical ventilator on 02/12/2021. Currently, the patient is being seen in follow-up on 02/13/2021. The patient is intubated on a mechanical ventilator. The patient is sedated and paralyzed. The patient is quite synchronous with the mechanical ventilator. Chest x-ray was noted. Blood gases was noted. At that the patient's overall acid base status status is improved as the patient received some bicarb infusion. The patient is at 7.37 and the potassium level is also improving is down to 5.2. Serum bicarb is up to 34. Nevertheless his oxidation is borderline of the chest x-ray is unchanged and I do not think there is much room for weaning of his PEEP. 2 Elevated inflammatory markers related to the above 3 Increased d-dimer of greater than 24, placed on therapeutic Lovenox, no CT evidence of pulmonary embolism and no evidence of DVT on lower extremity Dopplers 4 Troponin leak, likely related to severe COVID 19 pneumonia with severe hy poxic respiratory failure, and cardiology is following 5 Transaminitis secondary to above 5 Former smoker, carries [id number] smoking history, currently in remission, suspect underlying COPD 6 Marijuana use 7 acute hyperkalemia, without any EKG changes, likely secondary to respiratory acidosis and permissive hypercapnia Plan: Continue ventilator support, may gradually wean PEEP to 13 Keep sedation Paralytic holiday Stop the bicarb infusion and put the IV fluids to KVO Chest x-ray was noted, blood gases was noted Keep sedation with propofol Continue dexamethasone, Lovenox, vitamin supplements Received tocilizumab and convalescent plasma Enteral feeding for nutritional support, this will be started today and dietary consultation will be done Monitor inflammatory markers repeat potassium level We will continue to follow make further recommendations based on his clinical status Critical care time > 30 minutes Time with Patient: Greater than 30
[2021-02-14] MEDS: CISATRACURIUM 200 MG in SODIUM CHLORIDE 0.9% 180 ML IV SCH (10:03)
[2021-02-14 10:11] LABS: ABG Base Excess 11.9 mmol/L; ABG HCO3 39 mmol/L (21-25); ABG Oxygen Saturation 71.1 % (94-97); ABG PH 7.27 (7.35-7.45); ABG TCO2 42 mmol/L (19-24); Allen Test Performed? Yes
[2021-02-14 10:14] LABS: ABG PCO2 86 mmHg (35-45); ABG PO2 43 mmHg (83-108)
[2021-02-14 11:42] LABS: Glucose,Whole Blood 152 mg/dL (75-99)
[2021-02-14] MEDS: SODIUM CHLORIDE 0.9% 1,000 ML IV SCH (15:33)
[2021-02-14 16:47] LABS: ABG Base Excess 11.3 mmol/L; ABG HCO3 37 mmol/L (21-25); ABG Oxygen Saturation 82.2 % (94-97); ABG PCO2 70 mmHg (35-45); ABG PH 7.34 (7.35-7.45); ABG TCO2 39 mmol/L (19-24); Allen Test Performed? Yes
[2021-02-14 16:50] LABS: ABG PO2 50 mmHg (83-108)
[2021-02-14 17:35] LABS: Glucose,Whole Blood 133 mg/dL (75-99)
[2021-02-15] MEDS: CISATRACURIUM 200 MG in SODIUM CHLORIDE 0.9% 180 ML IV SCH ×2 (00:28→14:43)
[2021-02-15 00:39] LABS: Glucose,Whole Blood 139 mg/dL (75-99)
[2021-02-15 04:46] LABS: Basophils % (A) 0 %; Eosinophils % (A) 0 %; HCT 50.7 % (39.0-53.0); HGB 16.1 gm/dL (13.0-17.5); Hypochromasia Slight; Lymphocytes # (A) 0.8 k/uL (1.0-4.8); Lymphocytes % (A) 7 %; MCHC 31.6 g/dL (31.0-37.0); MCV 101.1 fL (80.0-100.0); Macrocytosis Slight; Mean Platelet Volume 8.4; Monocytes # (A) 0.3 k/uL (0-1.0); Monocytes % (A) 2 %; Neutrophils # (A) 10.5 k/uL (1.3-7.7); Neutrophils % (A) 89 %; Platelet Count 178 k/uL (150-450); RBC 5.02 m/uL (4.30-5.90); RDW 15.2 % (11.5-15.5); WBC 11.7 k/uL (3.8-10.6)
[2021-02-15 05:04] LABS: ABG Base Excess 9.7 mmol/L; ABG HCO3 36 mmol/L (21-25); ABG Oxygen Saturation 83.4 % (94-97); ABG TCO2 38 mmol/L (19-24); Allen Test Performed? Yes
[2021-02-15 05:20] LABS: ALT 158 U/L (4-49); African American GFR (CKD) >90 (>60 ml/min/1.73 sqM); Albumin 3.2 g/dL (3.5-5.0); Anion Gap 3 mmol/L; Blood Urea Nitrogen 34 mg/dL (9-20); C Reactive Protein 10.3 mg/L (<10.0); Calcium 8.6 mg/dL (8.4-10.2); Carbon Dioxide 34 mmol/L (22-30); Chloride 100 mmol/L (98-107); Creatine Kinase 76 U/L (55-170); Glucose 134 mg/dL (74-99); Non-African American GFR(CKD) 89 (>60 ml/min/1.73 sqM); Sodium 137 mmol/L (137-145); Total Bilirubin 0.6 mg/dL (0.2-1.3); Total Protein 6.1 g/dL (6.3-8.2)
[2021-02-15 05:30] LABS: ABG PCO2 73 mmHg (35-45)
[2021-02-15 05:31] LABS: ABG PO2 53 mmHg (83-108)
[2021-02-15 05:35] LABS: AST 57 U/L (17-59); Alkaline Phosphatase 117 U/L (38-126); LDH 1693 U/L (313-618); Potassium 5.6 mmol/L (3.5-5.1)
[2021-02-15 06:18] LABS: Glucose,Whole Blood 148 mg/dL (75-99)
--- NOTE | 2021-02-15 08:00 | P.PN ---
Subjective Progress Note Date: 02/15/21 02/13/2021, the patient is being seen for follow-up in intensive care unit. This is a 65-year-old -[place] male patient was admitted with Covid 19 related pneumonia and the patient was initially given high flow oxygen and later on BiPAP and because of ongoing failure, the patient was intubated and placed on a mechanical ventilator. He is a chronic smoker. He also smokes marijuana. The patient was intubated yesterday on 02/12/2021 because of respiratory failure related to Covid 19 related pneumonia. The patient is currently on assist control mode of ventilation. The patient is a rate of 36 with FiO2 of 9 90% 0% and a PEEP of 15 and tidal volume of 500. Your pressures around 41 metastatic pressure of 39. The patient remains sedated on propofol running at 60 mcg/kg per minute and the patient is also paralyzed at 2 mcg/kg per minute. Post intubation, the patient requires also pressors and currently norepinephrine is running at 0.02mcg/kg/per minute. The patient is mechanical ventilator. The patient normal saline at the rate of 75 mL an hour. Chest x-ray showing diffuse but the pulmonary patchy infiltrates. ET tube is in a good location. Note that the patient to telemetry markers from yesterday were quite elevated. LDH level was 4124 and the CRP was 20.5. The patient is currently on Decadron. The patient is also on Lovenox and the patient also received convalescent plasma and Tocilizumab. The LFTs are slightly elevated and the patient has some mild transaminitis related to COVID 19. Based on elevation of the d-dimer, the patient is being given 50 mg of Lovenox which is a half a milligram per KG every 12 hours. The blood gases from today showing a pH of 7.23 with a pCO2 of 63 and pO2 of 109. This was done and FiO2 of 90%. Blood work from today shows a d- dimer of more than 34, potassium level is down to 6.2 and the patient will need obviously D50 insulin along with 2 A of sodium bicarb. This hyperkalemia is related to acidosis. The patient's liver function tests are also elevated as the patient has mild transaminitis, ALT is 229, AST 307, LDH is 2716, pro calcitonin is at 0.14, CRP was 17.8. On 02/14/2021, I'm seeing the patient for a follow-up. This is a case of Covid 19 related pneumonia with secondary hypoxic respiratory failure and the patient has been intubated on 02/12/2021 and the patient is currently being seen in follow-up. On today's evaluation, the patient is on propofol which is running at 75 mg/kg per minute and the patient is also on Nimbex at 3 mcg/kg per minute. He is was sedated insipidus with the mechanical ventilator which is currently running at a tidal volume of 500 with a rate of 36 and it PEEP 15 and an FiO2 of 60%. The patient's blood gases from today showed a pH of 7.37 with a pCO2 of 64 and pO2 of 62 and this was on FiO2 of 60%. His chest x-ray from today is showing diffuse bilateral pulmonary infiltrates, essentially unchanged compared to yesterday and ET tube is in a good location. The patient's inflammatory markers on today's evaluation remain elevated although they're improving. The patient's LDH level is down to 2000 and his CRP level is down to 14 and the d- dimer is still elevated at 24 although is improving. The patient is currently on Decadron 6 mg IV every 24 hours. He is also on Lovenox 50 mg subcu 3 times a day. He is also on a bicarb drip this was added yesterday as the patient was having significant acidosis which was mainly respiratory acidosis and secondary hyperkalemia. Potassium level is down to 5.2 and a pH currently is at 7.37 and as such the bicarb infusion can be discontinued. Creatinine is down to 0.7 and his also recovered from his acute kidney injury. He is on enteral feeding for nutritional support and currently this is running at 27 mL an hour of Nepro. The urine output is adequate and the patient's net fluid balance is +2.1 L over the past 24 hours. His weight is currently up to 101 kg. On today's evaluation for 2020, the patient remains sedated and paralyzed. The patient is on propofol at 75 mcg/kg per minute and the patient is also on Nimbex at 2 mcg/kg/m. The patient is calm and comfortable and successful mechanical ventilator which is running currently with tidal volume of 500, rate of 32, PEEP of 17 and an FiO2 of 50%. The blood is from today showed a pH of 7.3 with a pCO2 of 73 and pO2 of 52. This was done and a PEEP of 17. The chest x-ray is unchanged and there is diffuse bilateral pulmonary infiltrates right more than left lower lung more than the upper lobes. ET tube is high in the trachea and it needs to be pushed then by another centimeter. Orogastric tube is in a good location. The patient otherwise is he was dynamically stable. He remains on Decadron. He remains on Lovenox 50 mg subcutaneous twice a day. He is on IV fluids and currently is receiving normal saline at the rate of 20 mL an hour. Fluid balance over the past 24 hours has been +2.2 L. The patient has been persistently in a positive fluid balance. As for the rest of the blood work, the patient's d-dimer is at 14 which is lower, his LDH is 1693, lower and the CRP is 10.3, lower. As for the rest of the electrolytes, his potassium level is at 5.6 and a serum bicarb is 34 with a BUN of 34 and a creatinine of 0.9. He is on enteral feeding for nutritional support and he is currently receiving Nepro at 27 mL an hour. No other major events overnight. I did do some ventilator changes on the patient y . yesterday which failed. I tried to wean off his feet and it failed and the patient became hypoxic and currently is a 17 of PEEP. he has a peak airway pressure in the setting of a pressure of 36 and 34 respectively Objective - Vital Signs Vital signs: Vital Signs Temp 98.9 F 02/15/21 04:00 Pulse 107 H 02/15/21 07:00 Resp 32 H 02/15/21 07:00 BP 115/62 02/15/21 07:00 Pulse Ox 92 L 02/15/21 07:00 Intake & Output 02/14/21 02/15/21 02/15/21 18:59 06:59 18:59 Intake Total 7812.408 2851.937 50 Output Total 605 325 30 Balance 0604.630 2814.937 20 Weight 107.1 kg Intake: IV 576 276 23 .9NS 240 240 20 Dextrose 5% in Water 1, 300 000 ml @ 75 mls/hr IV . [id number] MARIO with Sodium Bicarb (1 Meq/ml) 150 ml Rx#:[id number] Pressure bag 36 36 3 Intake, IV Titration 637.625 673.937 Amount Cisatracurium 200 mg In 250.723 82.098 Sodium Chloride 0.9% 180 ml @ 1 MCG/KG/MIN 5.987 mls/hr IV .Q24H MARIO Rx#: [id number] propofoL 1,000 mg In 386.902 591.839 Empty Bag 1 bag @ Titrate IV .Q0M MARIO Rx#: [id number] Tube Feeding 405 324 27 Other 150 90 Output: Urine 605 325 30 Other: Voiding Method Indwelling Catheter Indwelling Catheter ABP, PAP, CO, CI - Last Documented Arterial Blood Pressure 99/45 - Exam GENERAL EXAM: Intubated, sedated, paralyzed 65-year-old male, currently on the mechanical ventilator , comfortable in no apparent distress. HEAD: Normocephalic/atraumatic. EYES: Fish reaction of pupils, equal size. Conjunctiva pink, sclera white. NOSE: Clear with pink turbinates. THROAT: Oral endotracheal and gastric tube secured in place. No erythema or exudates. NECK: No masses, no JVD, no thyroid enlargement, no adenopathy. CHEST: No chest wall deformity. Symmetrical expansion. LUNGS: Equal air entry with diffuse bibasilar crackles CVS: Regular rate and rhythm, normal S1 and S2, no gallops, no murmurs, no rubs ABDOMEN: Soft, nontender. No hepatosplenomegaly, normal bowel sounds, no guarding or rigidity. EXTREMITIES: No clubbing, no edema, no cyanosis, 2+ pulses and upper and lower extremities. MUSCULOSKELETAL: Muscle strength and tone normal. SPINE: No scoliosis or deformity SKIN: No rashes CENTRAL NERVOUS SYSTEM: Sedated, paralyzed, tone is normal in all 4 extremities. PSYCHIATRIC: Sedated, paralyzed - Labs CBC & Chem 7: 02/15/21 04:15 02/15/21 04:15 Labs: Abnormal Lab Results - Last 24 Hours (Table) 02/14/21 02/14/21 02/14/21 Range/Units 04:00 10:08 11:41 WBC (3.8-10.6) k/uL MCV (80.0-100.0) fL Neutrophils # (1.3-7.7) k/uL Lymphocytes # (1.0-4.8) k/uL D-Dimer (<0.60) mg/L FEU ABG pH 7.27 L (7.35-7.45) ABG pCO2 86 H* (35-45) mmHg ABG pO2 43 L* (83-108) mmHg ABG HCO3 39 H (21-25) mmol/L ABG Total CO2 42 H (19-24) mmol/L ABG O2 Saturation 71.1 L (94-97) % Potassium (3.5-5.1) mmol/L Carbon Dioxide (22-30) mmol/L BUN (9-20) mg/dL Glucose (74-99) mg/dL POC Glucose (mg/dL) 152 H (75-99) mg/dL Ferritin 1008.5 H (22.0-322.0) ng/mL ALT (4-49) U/L Lactate Dehydrogenase (313-618) U/L C-Reactive Protein (<10.0) mg/L Total Protein (6.3-8.2) g/dL Albumin (3.5-5.0) g/dL 02/14/21 02/14/21 02/15/21 Range/Units 16:44 17:34 00:38 WBC (3.8-10.6) k/uL MCV (80.0-100.0) fL Neutrophils # (1.3-7.7) k/uL Lymphocytes # (1.0-4.8) k/uL D-Dimer (<0.60) mg/L FEU ABG pH 7.34 L (7.35-7.45) ABG pCO2 70 H (35-45) mmHg ABG pO2 50 L* (83-108) mmHg ABG HCO3 37 H (21-25) mmol/L ABG Total CO2 39 H (19-24) mmol/L ABG O2 Saturation 82.2 L (94-97) % Potassium (3.5-5.1) mmol/L Carbon Dioxide (22-30) mmol/L BUN (9-20) mg/dL Glucose (74-99) mg/dL POC Glucose (mg/dL) 133 H 139 H (75-99) mg/dL Ferritin (22.0-322.0) ng/mL ALT (4-49) U/L Lactate Dehydrogenase (313-618) U/L C-Reactive Protein (<10.0) mg/L Total Protein (6.3-8.2) g/dL Albumin (3.5-5.0) g/dL 02/15/21 02/15/21 02/15/21 Range/Units 04:15 04:15 04:15 WBC 11.7 H (3.8-10.6) k/uL MCV 101.1 H (80.0-100.0) fL Neutrophils # 10.5 H (1.3-7.7) k/uL Lymphocytes # 0.8 L (1.0-4.8) k/uL D-Dimer 14.24 H (<0.60) mg/L FEU ABG pH (7.35-7.45) ABG pCO2 (35-45) mmHg ABG pO2 (83-108) mmHg ABG HCO3 (21-25) mmol/L ABG Total CO2 (19-24) mmol/L ABG O2 Saturation (94-97) % Potassium 5.6 H (3.5-5.1) mmol/L Carbon Dioxide 34 H (22-30) mmol/L BUN 34 H (9-20) mg/dL Glucose 134 H (74-99) mg/dL POC Glucose (mg/dL) (75-99) mg/dL Ferritin (22.0-322.0) ng/mL ALT 158 H (4-49) U/L Lactate Dehydrogenase 1693 H (313-618) U/L C-Reactive Protein 10.3 H (<10.0) mg/L Total Protein 6.1 L (6.3-8.2) g/dL Albumin 3.2 L (3.5-5.0) g/dL 02/15/21 02/15/21 Range/Units 04:51 06:16 WBC (3.8-10.6) k/uL MCV (80.0-100.0) fL Neutrophils # (1.3-7.7) k/uL Lymphocytes # (1.0-4.8) k/uL D-Dimer (<0.60) mg/L FEU ABG pH 7.30 L (7.35-7.45) ABG pCO2 73 H* (35-45) mmHg ABG pO2 53 L* (83-108) mmHg ABG HCO3 36 H (21-25) mmol/L ABG Total CO2 38 H (19-24) mmol/L ABG O2 Saturation 83.4 L (94-97) % Potassium (3.5-5.1) mmol/L Carbon Dioxide (22-30) mmol/L BUN (9-20) mg/dL Glucose (74-99) mg/dL POC Glucose (mg/dL) 148 H (75-99) mg/dL Ferritin (22.0-322.0) ng/mL ALT (4-49) U/L Lactate Dehydrogenase (313-618) U/L C-Reactive Protein (<10.0) mg/L Total Protein (6.3-8.2) g/dL Albumin (3.5-5.0) g/dL Microbiology - Last 24 Hours (Table) 02/09/21 21:00 Blood Culture - Preliminary Blood No Growth after 120 hours 02/09/21 21:17 Blood Culture - Preliminary Blood No Growth after 120 hours Assessment and Plan Plan: 1 Acute hypoxemic respiratory failure, related to COVID 19 pneumonia, with onset of symptoms 14 days ago, outside the window for Remdesivir. Received tocilizumab and 1 unit of convalescent plasma. Continued to deteriorate and intubated and placed on mechanical ventilator on 02/12/2021. Currently, the patient is being seen in follow-up on 02/13/2021. The patient is intubated on a mechanical ventilator. The patient is sedated and paralyzed. The patient is quite synchronous with the mechanical ventilator. Chest x-ray was noted. Blood gases was noted. UnAble to do any further weaning. Some limited wean of the feet yesterday was done and the patient failed and the patient became hypoxic. Currently he is on a PEEP of 17 with an FiO2 of 50%. Blood gases was noted and the patient continues to have hypoxemia with a pO2 the mid 50s. We'll repeat the blood gas. We'll keep sedation. We'll try to give him a paralytic holiday. Peak and static pressures are still elevated. The patient is in a positive fluid balance 2 Elevated inflammatory markers related to the above 3 Increased d-dimer of greater than 14, placed on therapeutic Lovenox, no CT evidence of pulmonary embolism and no evidence of DVT on lower extremity Dopplers 4 Troponin leak, likely related to severe COVID 19 pneumonia with severe hypoxic respiratory failure, and cardiology is following 5 Transaminitis secondary to above 5 Former smoker, carries [id number] smoking history, currently in remission, suspect underlying COPD 6 Marijuana use 7 acute hyperkalemia, without any EKG changes, likely secondary to respiratory acidosis and permissive hypercapnia Plan: Continue ventilator support Keep sedation Paralytic holiday Lasix 40 mg IV every 12 hours and IV fluids are currently at KVO Chest x-ray was noted, blood gases was noted Repeat blood gases at no time Continue dexamethasone, Lovenox, vitamin supplements Received tocilizumab and convalescent plasma Enteral feeding for nutritional support, this will be started today and dietary consultation will be done Monitor inflammatory markers repeat potassium level We will continue to follow make further recommendations based on his clinical status Critical care time > 30 minutes Time with Patient: Greater than 30
[2021-02-15] MEDS: ENOXAPARIN 60 MG/0.6 ML SYRINGE SQ SCH ×2 (08:02→21:24)
[2021-02-15] MEDS: CHOLECALCIFEROL 25 MCG (1000 IU) TABLET PO SCH (08:02)
[2021-02-15] MEDS: CHLORHEXIDINE GLUCONATE 15 ML CUP MUCOUS MEM SCH ×2 (08:02→21:23)
[2021-02-15] MEDS: METOPROLOL TARTRATE 25 MG TAB PO SCH (08:02)
[2021-02-15] MEDS: ZINC SULFATE 220 MG CAP PO SCH (08:02)
[2021-02-15] MEDS: ASPIRIN 81 MG PO SCH (08:02)
[2021-02-15] MEDS: FAMOTIDINE 20 MG/2 ML VIAL IV SCH ×2 (08:03→21:24)
[2021-02-15] MEDS: DEXAMETHASONE SOD PHOSPHATE 10 MG/ML 1 ML VIAL IV SCH ×2 (08:03→21:23)
[2021-02-15] MEDS: ASCORBIC ACID 500 MG TAB PO SCH (08:03)
[2021-02-15] MEDS: FUROSEMIDE 10 MG/ML 4 ML VIAL IV SCH ×2 (08:07→21:24)
--- NOTE | 2021-02-15 10:40 | XR ---
EXAMINATION TYPE: XR chest 1V portable DATE OF EXAM: 02/15/2021 COMPARISON: 02/14/2021 INDICATION: Tube placement TECHNIQUE: Single frontal view of the chest is obtained. Left costophrenic angle is excluded from the [id number]. FINDINGS: The heart size is normal. The pulmonary vasculature is prominent. Diffuse increased lung markings are present bilaterally greater the right lower lung field. Findings slight improvement over the interval. Nasogastric tube transverses the field of view. Left central venous catheter tips in superior vena ca va region. IMPRESSION: 1. Mild improvement of diffuse increased lung markings.
[2021-02-15] MEDS: SODIUM CHLORIDE 0.9% 1,000 ML IV SCH (11:35)
[2021-02-15 11:47] LABS: Glucose,Whole Blood 150 mg/dL (75-99)
[2021-02-15 12:17] LABS: ABG Base Excess 8.6 mmol/L; ABG HCO3 35 mmol/L (21-25); ABG Oxygen Saturation 86.9 % (94-97); ABG TCO2 37 mmol/L (19-24); Allen Test Performed? Yes
[2021-02-15 12:21] LABS: ABG PCO2 72 mmHg (35-45); ABG PO2 58 mmHg (83-108)
[2021-02-15 17:55] LABS: Glucose,Whole Blood 140 mg/dL (75-99)
[2021-02-16] MEDS: METOPROLOL TARTRATE 25 MG TAB PO SCH ×3 (00:40→20:31)
[2021-02-16 01:09] LABS: Glucose,Whole Blood 141 mg/dL (75-99)
[2021-02-16 04:33] LABS: ABG Base Excess 8.7 mmol/L; ABG HCO3 35 mmol/L (21-25); ABG Oxygen Saturation 89.4 % (94-97); ABG PCO2 69 mmHg (35-45); ABG PH 7.31 (7.35-7.45); ABG PO2 60 mmHg (83-108); ABG TCO2 37 mmol/L (19-24); Allen Test Performed? Yes
[2021-02-16 05:16] LABS: Basophils # (A) 0.1 k/uL (0-0.2); Basophils % (A) 0 %; Eosinophils # (A) 0.1 k/uL (0-0.7); Eosinophils % (A) 1 %; HCT 45.9 % (39.0-53.0); HGB 15.3 gm/dL (13.0-17.5); Hypochromasia Slight; Lymphocytes # (A) 0.8 k/uL (1.0-4.8); Lymphocytes % (A) 6 %; MCH 33.3 pg (25.0-35.0); MCHC 33.3 g/dL (31.0-37.0); Macrocytosis Slight; Mean Platelet Volume 8.3; Monocytes # (A) 0.4 k/uL (0-1.0); Monocytes % (A) 3 %; Neutrophils # (A) 11.2 k/uL (1.3-7.7); Neutrophils % (A) 88 %; Platelet Count 167 k/uL (150-450); WBC 12.7 k/uL (3.8-10.6)
[2021-02-16 05:44] LABS: Albumin 3.1 g/dL (3.5-5.0); C Reactive Protein 7.6 mg/L (<10.0); Calcium 8.4 mg/dL (8.4-10.2); Potassium 5.1 mmol/L (3.5-5.1); Total Bilirubin 0.6 mg/dL (0.2-1.3); Total Protein 5.9 g/dL (6.3-8.2)
[2021-02-16 06:00] LABS: Glucose,Whole Blood 138 mg/dL (75-99)
--- NOTE | 2021-02-16 06:59 | P.PN ---
Subjective Progress Note Date: 02/16/21 02/13/2021, the patient is being seen for follow-up in intensive care unit. This is a 65-year-old -[place] male patient was admitted with Covid 19 related pneumonia and the patient was initially given high flow oxygen and later on BiPAP and because of ongoing failure, the patient was intubated and placed on a mechanical ventilator. He is a chronic smoker. He also smokes marijuana. The patient was intubated yesterday on 02/12/2021 because of respiratory failure related to Covid 19 related pneumonia. The patient is currently on assist control mode of ventilation. The patient is a rate of 36 with FiO2 of 9 90% 0% and a PEEP of 15 and tidal volume of 500. Your pressures around 41 metastatic pressure of 39. The patient remains sedated on propofol running at 60 mcg/kg per minute and the patient is also paralyzed at 2 mcg/kg per minute. Post intubation, the patient requires also pressors and currently norepinephrine is running at 0.02mcg/kg/per minute. The patient is mechanical ventilator. The patient normal saline at the rate of 75 mL an hour. Chest x-ray showing diffuse but the pulmonary patchy infiltrates. ET tube is in a good location. Note that the patient to telemetry markers from yesterday were quite elevated. LDH level was 4124 and the CRP was 20.5. The patient is currently on Decadron. The patient is also on Lovenox and the patient also received convalescent plasma and Tocilizumab. The LFTs are slightly elevated and the patient has some mild transaminitis related to COVID 19. Based on elevation of the d-dimer, the patient is being given 50 mg of Lovenox which is a half a milligram per KG every 12 hours. The blood gases from today showing a pH of 7.23 with a pCO2 of 63 and pO2 of 109. This was done and FiO2 of 90%. Blood work from today shows a d- dimer of more than 34, potassium level is down to 6.2 and the patient will need obviously D50 insulin along with 2 A of sodium bicarb. This hyperkalemia is related to acidosis. The patient's liver function tests are also elevated as the patient has mild transaminitis, ALT is 229, AST 307, LDH is 2716, pro calcitonin is at 0.14, CRP was 17.8. On 02/14/2021, I'm seeing the patient for a follow-up. This is a case of Covid 19 related pneumonia with secondary hypoxic respiratory failure and the patient has been intubated on 02/12/2021 and the patient is currently being seen in follow-up. On today's evaluation, the patient is on propofol which is running at 75 mg/kg per minute and the patient is also on Nimbex at 3 mcg/kg per minute. He is was sedated insipidus with the mechanical ventilator which is currently running at a tidal volume of 500 with a rate of 36 and it PEEP 15 and an FiO2 of 60%. The patient's blood gases from today showed a pH of 7.37 with a pCO2 of 64 and pO2 of 62 and this was on FiO2 of 60%. His chest x-ray from today is showing diffuse bilateral pulmonary infiltrates, essentially unchanged compared to yesterday and ET tube is in a good location. The patient's inflammatory markers on today's evaluation remain elevated although they're improving. The patient's LDH level is down to 2000 and his CRP level is down to 14 and the d- dimer is still elevated at 24 although is improving. The patient is currently on Decadron 6 mg IV every 24 hours. He is also on Lovenox 50 mg subcu 3 times a day. He is also on a bicarb drip this was added yesterday as the patient was having significant acidosis which was mainly respiratory acidosis and secondary hyperkalemia. Potassium level is down to 5.2 and a pH currently is at 7.37 and as such the bicarb infusion can be discontinued. Creatinine is down to 0.7 and his also recovered from his acute kidney injury. He is on enteral feeding for nutritional support and currently this is running at 27 mL an hour of Nepro. The urine output is adequate and the patient's net fluid balance is +2.1 L over the past 24 hours. His weight is currently up to 101 kg. On today's evaluation for 2020, the patient remains sedated and paralyzed. The patient is on propofol at 75 mcg/kg per minute and the patient is also on Nimbex at 2 mcg/kg/m. The patient is calm and comfortable and successful mechanical ventilator which is running currently with tidal volume of 500, rate of 32, PEEP of 17 and an FiO2 of 50%. The blood is from today showed a pH of 7.3 with a pCO2 of 73 and pO2 of 52. This was done and a PEEP of 17. The chest x-ray is unchanged and there is diffuse bilateral pulmonary infiltrates right more than left lower lung more than the upper lobes. ET tube is high in the trachea and it needs to be pushed then by another centimeter. Orogastric tube is in a good location. The patient otherwise is he was dynamically stable. He remains on Decadron. He remains on Lovenox 50 mg subcutaneous twice a day. He is on IV fluids and currently is receiving normal saline at the rate of 20 mL an hour. Fluid balance over the past 24 hours has been +2.2 L. The patient has been persistently in a positive fluid balance. As for the rest of the blood work, the patient's d-dimer is at 14 which is lower, his LDH is 1693, lower and the CRP is 10.3, lower. As for the rest of the electrolytes, his potassium level is at 5.6 and a serum bicarb is 34 with a BUN of 34 and a creatinine of 0.9. He is on enteral feeding for nutritional support and he is currently receiving Nepro at 27 mL an hour. No other major events overnight. I did do some ventilator changes on the patient y . yesterday which failed. I tried to wean off his feet and it failed and the patient became hypoxic and currently is a 17 of PEEP. he has a peak airway pressure in the setting of a pressure of 36 and 34 respectively On 02/16/2021, the patient is being seen in follow-up in the intensive care unit. The patient remains sedated and paralyzed. On today's evaluation, propofol is running at 70 mcg/kg per minute and the patient is also paralyzed with Nimbex running at 2 mcg/kg per minute. He is essentially the same as yesterday. Meanwhile, the patient remains on a mechanical ventilator. The patient is on the volumes second assist-control mode with a tidal volume of 500, rate of 32, FiO2 of 50% and a PEEP of 17. Again, these are the same ventilator settings as of yesterday. PH is at 7.31 with a pCO2 of 68 and pO2 of 60. Chest x-ray from today is not showing any major interval change. Orotracheal tube is in place. NG tube in place. There are bilateral pulmonary infiltrates and the findings are typical of ARDS. Meanwhile, the peak airway pressures at 36, static pressures are 34. These are the same numbers as of yesterday. The patient is a d-dimer of 9.6 with CRP of 7.6 and a LDH level of 1363. Currently is running a lower blood pressure with a systolic in the 90s. Lopressor has been held. Cardiac rhythm is sinus. IV fluids are running at disease an hour and the patient is not fluid balance is around 2.2 L positive over the past 24 hours. The patient is having a low-grade fever. His T-max was 100.2. Note that he is not covered with any antibiotics at this point in time. White cell count of 12.7. This of the blood work and electrolytes showed development of an acute kidney injury. Creatinine is up to 1.5 on today's evaluation and the rest of the blood work shows sodium 137, potassium of 5.1, LFTs are also showing some mild component of transaminitis. He is on enteral feeding for nutritional support and the patient is currently receiving Nepro 25 mL an hour. His urine o utput is in order of 40 cc hr Objective - Vital Signs Vital signs: Vital Signs Temp 98.6 F 02/16/21 03:00 Pulse 112 H 02/16/21 03:00 Resp 32 H 02/16/21 03:00 BP 163/76 02/16/21 03:00 Pulse Ox 95 02/16/21 03:00 Intake & Output 02/15/21 02/15/21 02/16/21 06:59 18:59 06:59 Intake Total 1253.386 9331.280 476 Output Total 325 550 640 Balance 1038.937 839.280 -164 Weight 107.1 kg 107.1 kg Intake: IV 276 276 127 .9NS 240 240 100 Pressure bag 36 36 27 Intake, IV Titration 673.937 578.280 100 Amount Cisatracurium 200 mg In 82.098 170.644 Sodium Chloride 0.9% 180 ml @ 1 MCG/KG/MIN 5.987 mls/hr IV .Q24H MARIO Rx#: [id number] propofoL 1,000 mg In 591.839 407.636 100 Empty Bag 1 bag @ Titrate IV .Q0M MARIO Rx#: [id number] Tube Feeding 324 405 189 Other 90 130 60 Output: Urine 325 550 640 Other: Voiding Method Indwelling Catheter Indwelling Catheter Indwelling Catheter ABP, PAP, CO, CI - Last Documented Arterial Blood Pressure 122/54 - Exam GENERAL EXAM: Intubated, sedated, paralyzed 65-year-old male, currently on the mechanical ventilator , comfortable in no apparent distress. HEAD: Normocephalic/atraumatic. EYES: Fish reaction of pupils, equal size. Conjunctiva pink, sclera white. NOSE: Clear with pink turbinates. THROAT: Oral endotracheal and gastric tube secured in place. No erythema or exudates. NECK: No masses, no JVD, no thyroid enlargement, no adenopathy. CHEST: No chest wall deformity. Symmetrical expansion. LUNGS: Equal air entry with diffuse bibasilar crackles CVS: Regular rate and rhythm, normal S1 and S2, no gallops, no murmurs, no rubs ABDOMEN: Soft, nontender. No hepatosplenomegaly, normal bowel sounds, no guarding or rigidity. EXTREMITIES: No clubbing, no edema, no cyanosis, 2+ pulses and upper and lower extremities. MUSCULOSKELETAL: Muscle strength and tone normal. SPINE: No scoliosis or deformity SKIN: No rashes CENTRAL NERVOUS SYSTEM: Sedated, paralyzed, tone is normal in all 4 extremities. PSYCHIATRIC: Sedated, paralyzed - Labs CBC & Chem 7: 02/16/21 04:30 02/16/21 04:30 Labs: Abnormal Lab Results - Last 24 Hours (Table) 02/15/21 02/15/21 02/15/21 Range/Units 11:46 12:12 17:53 WBC (3.8-10.6) k/uL Neutrophils # (1.3-7.7) k/uL Lymphocytes # (1.0-4.8) k/uL D-Dimer (<0.60) mg/L FEU ABG pH 7.30 L (7.35-7.45) ABG pCO2 72 H* (35-45) mmHg ABG pO2 58 L* (83-108) mmHg ABG HCO3 35 H (21-25) mmol/L ABG Total CO2 37 H (19-24) mmol/L ABG O2 Saturation 86.9 L (94-97) % Carbon Dioxide (22-30) mmol/L BUN (9-20) mg/dL Creatinine (0.66-1.25) mg/dL Glucose (74-99) mg/dL POC Glucose (mg/dL) 150 H 140 H (75-99) mg/dL AST (17-59) U/L ALT (4-49) U/L Lactate Dehydrogenase (313-618) U/L Total Protein (6.3-8.2) g/dL Albumin (3.5-5.0) g/dL 02/16/21 02/16/21 02/16/21 Range/Units 01:07 04:28 04:30 WBC 12.7 H (3.8-10.6) k/uL Neutrophils # 11.2 H (1.3-7.7) k/uL Lymphocytes # 0.8 L (1.0-4.8) k/uL D-Dimer (<0.60) mg/L FEU ABG pH 7.31 L (7.35-7.45) ABG pCO2 69 H (35-45) mmHg ABG pO2 60 L (83-108) mmHg ABG HCO3 35 H (21-25) mmol/L ABG Total CO2 37 H (19-24) mmol/L ABG O2 Saturation 89.4 L (94-97) % Carbon Dioxide (22-30) mmol/L BUN (9-20) mg/dL Creatinine (0.66-1.25) mg/dL Glucose (74-99) mg/dL POC Glucose (mg/dL) 141 H (75-99) mg/dL AST (17-59) U/L ALT (4-49) U/L Lactate Dehydrogenase (313-618) U/L Total Protein (6.3-8.2) g/dL Albumin (3.5-5.0) g/dL 02/16/21 02/16/21 02/16/21 Range/Units 04:30 04:30 05:58 WBC (3.8-10.6) k/uL Neutrophils # (1.3-7.7) k/uL Lymphocytes # (1.0-4.8) k/uL D-Dimer 9.64 H (<0.60) mg/L FEU ABG pH (7.35-7.45) ABG pCO2 (35-45) mmHg ABG pO2 (83-108) mmHg ABG HCO3 (21-25) mmol/L ABG Total CO2 (19-24) mmol/L ABG O2 Saturation (94-97) % Carbon Dioxide 34 H (22-30) mmol/L BUN 59 H (9-20) mg/dL Creatinine 1.52 H (0.66-1.25) mg/dL Glucose 150 H (74-99) mg/dL POC Glucose (mg/dL) 138 H (75-99) mg/dL AST 61 H (17-59) U/L ALT 144 H (4-49) U/L Lactate Dehydrogenase 1363 H (313-618) U/L Total Protein 5.9 L (6.3-8.2) g/dL Albumin 3.1 L (3.5-5.0) g/dL Microbiology - Last 24 Hours (Table) 02/09/21 21:17 Blood Culture - Final Blood No Growth after 144 hours 02/09/21 21:00 Blood Culture - Final Blood No Growth after 144 hours Assessment and Plan Plan: 1 ARDS with secondary acute hypoxemic respiratory failure, related to COVID 19 pneumonia, with onset of symptoms 14 days ago, outside the window for Remdesivir. Received tocilizumab and 1 unit of convalescent plasma. Continued to deteriorate and intubated and placed on mechanical ventilator on 02/12/2021. Currently, the patient is being seen in follow-up on 02/13/2021. The patient is intubated on a mechanical ventilator. The patient is sedated and paralyzed. The patient is quite synchronous with the mechanical ventilator. No significant improvement in his overall pulmonary mechanics. Oxygenation remains impaired. The patient is still having some degree of hypercapnia and respiratory acidosis. Peak and static pressures remained quite elevated. 2 Elevated inflammatory markers related to the above must slightly improving 3 Increased d-dimer of greater than 9, placed on therapeutic Lovenox, no CT evidence of pulmonary embolism and no evidence of DVT on lower extremity Dopplers 4 Troponin leak, likely related to severe COVID 19 pneumonia with severe hypoxic respiratory failure, and cardiology is following 5 Transaminitis secondary to above 5 Former smoker, carries [id number] smoking history, currently in remission, suspect underlying COPD 6 Marijuana use 7 acute hyperkalemia, without any EKG changes, likely secondary to respiratory acidosis and permissive hypercapnia, improved 8 acute kidney injury with a creatinine of 1.5 and borderline low blood pressure. Consider cardiorenal factors noted the patient has an ejection fraction of 20-25% and the patient was being diuresis with IV Lasix. 9 severe cardiomyopathy with an ejection fraction of 20-25%. The patient was diuresed yesterday and the patient developed an acute kidney injury and diuretics will placed on hold for now. He is referred to the echocardiogram that was done on 02/10/2021. Plan: Continue ventilator support No ventilator changes for today The patient may be coming cardiorenal because of diuresis. He has developed an acute kidney injury. He'll be started on dobutamine at 2.5 mcg/kg per minute and will continue this as long as the patient is able to tolerate without any significant tachycardia. We'll monitor urine output. Will monitor blood pressure. Use levo fed should he develop any hypotension. drop tidal volume to 450 Keep sedation and paralysis Chest x-ray was noted, blood gases was noted Continue dexamethasone, Lovenox, vitamin supplements Received tocilizumab and convalescent plasma check procalcitonin level blood cultures Enteral feeding for nutritional support, Monitor inflammatory markers repeat potassium level We will continue to follow make further recommendations based on his clinical status Critical care time > 30 minutes
--- NOTE | 2021-02-16 08:30 | XR ---
EXAMINATION TYPE: XR chest 1V portable DATE OF EXAM: 02/16/2021 COMPARISON: 02/15/2021 INDICATION: Tube placement TECHNIQUE: Single frontal view of the chest is obtained. FINDINGS: The heart size is normal. The pulmonary vasculature is normal. Bibasilar infiltrates are present. Findings are improved from comparison. Endotracheal tube tip is above the martinez. Nasogastric tube transverses the thorax. Left central veno us catheter tip is within the superior vena cava region IMPRESSION: 1. Bibasilar infiltrates. Findings are improving.
[2021-02-16] MEDS: NOREPINEPHRINE 8 MG in SODIUM CHLORIDE 0.9% 250 ML IV SCH ×2 (08:41→14:07)
[2021-02-16] MEDS: DOBUTamine DRIP 500 MG in DEXTROSE/WATER 1 250ML.BAG IV SCH (09:12)
[2021-02-16] MEDS: ZINC SULFATE 220 MG CAP PO SCH (09:13)
[2021-02-16] MEDS: SODIUM CHLORIDE 0.9% 1,000 ML IV SCH (09:13)
[2021-02-16] MEDS: ASPIRIN 81 MG PO SCH (09:13)
[2021-02-16] MEDS: CHOLECALCIFEROL 25 MCG (1000 IU) TABLET PO SCH (09:14)
[2021-02-16] MEDS: CHLORHEXIDINE GLUCONATE 15 ML CUP MUCOUS MEM SCH ×2 (09:14→20:32)
[2021-02-16] MEDS: FAMOTIDINE 20 MG/2 ML VIAL IV SCH ×2 (09:14→20:32)
[2021-02-16] MEDS: ASCORBIC ACID 500 MG TAB PO SCH (09:14)
[2021-02-16] MEDS: DEXAMETHASONE SOD PHOSPHATE 10 MG/ML 1 ML VIAL IV SCH ×2 (09:14→20:31)
[2021-02-16] MEDS: ENOXAPARIN 60 MG/0.6 ML SYRINGE SQ SCH ×2 (09:46→20:35)
[2021-02-16] MEDS: CISATRACURIUM 200 MG in SODIUM CHLORIDE 0.9% 180 ML IV SCH ×2 (09:53→20:08)
[2021-02-16 11:21] LABS: Glucose,Whole Blood 152 mg/dL (75-99)
[2021-02-16 15:41] LABS: Amorphous Sediment,Urine Rare /hpf; Appearance,Urine Turbid (Clear); Bacteria,Urine Many /hpf; Bilirubin,Urine Negative (Negative); Blood,Urine Trace (Negative); Color,Urine Yellow; Glucose,Urine (UA) Negative (Negative); Ketones,Urine Negative (Negative); Leukocyte Esterase,Urine Small (Negative); Mucus,Urine Rare /hpf; Nitrite,Urine Negative (Negative); PH, Urine 5.5 (5.0-8.0); Protein,Urine 1+ (Negative); RBC,Urine 25 /hpf (0-5); Specific Gravity,Urine 1.023 (1.001-1.035); Squamous Epithelial Cell,Urine 2 /hpf (0-4); Urobilinogen,Urine <2.0 mg/dL (<2.0); WBC,Urine 11 /hpf (0-5)
[2021-02-16 17:35] LABS: Glucose,Whole Blood 134 mg/dL (75-99)
--- NOTE | 2021-02-16 19:54 | P.PN ---
Subjective Progress Note Date: 02/14/21 Principal diagnosis: Acute bilateral Covid pneumonia Acute hypoxic respiratory failure secondary to above. on mechanical ventilator This is a pleasant 65 years old male with no significant past medical history who presents because of one-week history of dyspnea associated with high fever at 101.3 at home. Associated with coughing. He feels generally weak but no significant chest pain. Patient dyspnea was getting more worse and he was not feeling well so family brought him to the hospital. His symptoms started about 2 weeks Patient is poor historian and is oxygen saturation was troponin while he was on high flow nasal cannula and he has to be placed on BiPAP and sent to the ICU from emergency room Patient is ex-smoker, he quit a few months ago. Used to smoke 2 packs per day. Patient is tachypneic with a breathing rate of 30, he is saturating any to on 60 L/m of oxygen via high flow cannula. A febrile. CBC, and BMP are unremarkable. Liver enzymes slightly elevated with AST 100 and ALT 86 and normal bilirubin of 0.7. D-dimer is elevated at 5.7. Elevated troponin 0.03, 0.06, 0.06 Chronic varus detected CTA of the chest: No evidence of PE. Extensive bilateral pneumonia, emphysema EKG showing sinus tachycardia at 107 with the bundle branch block and QTC 523 Chest x-ray: Bilateral infiltrates Ultrasound of the lower extremities is negative for DVT on both sides In ED he was started on Lovenox, normal saline at 75 mL/h, one-time dose of tocilizumab per pulmonary team , vitamin C, zinc and vitamin D. Patient has been evaluated by pulmonary service, he was started on BiPAP and admitted to the ICU 02/11/2021 Patient remains in the ICU, monitored closely for his hypoxia, he needs BiPAP most of the time of continuously. Has increased inflammatory markers with ferritin 1519, LDH 2339 and selective 1438. D-dimer is elevated at 5.7 and he is placed on therapeutic dose of Lovenox. Chest x-ray showing bilateral infiltrate Remains on dexamethasone and vitamin cocktail for Covid, he also received 1 dose of tocilizumab and convalescent plasma Also he is on metoprolol and Lovenox 50 mg twice a day 02/12/2021 Patient seen and examined in the ICU for Covid pneumonia, this morning his respiratory status deteriorated and he had to be intubated and placed on mechanical ventilation, also blood pressure was troponin even with boluses of normal saline and he has to be placed on Levophed at 0.05. Vent setting showing PEEP 10, respiratory rate 30, dental: 450 and FiO2 is 100%. Dictated hydrogenase almost doubled to 4124 and C-reactive protein is high at 20. D-dimer more than 34. Liver enzymes slightly elevated. She remains on metoprolol 25 mg, Lovenox 50 mg dexamethasone, vitamin C, D and zinc. Also he is started on small dose of Levophed. And metoprolol 02/14/2021 Patient is currently in MICU and remains intubated. Patient was intubated on 02/12/2021. Currently on mechanical ventilator and is on sedation. Chest x-ray showed COPD with borderline heart size. Diffuse interstitial opacities and more confluent bibasilar airspace disease, right greater than left, (without significant change. Laboratory data showed D-dimer 24.99, potassium 5.2, bicarb 34 BUN 24 creatinine 0.79 calcium 8.1 ferritin 1008.5 AST 91 ALT 208 LDH 2000 CPK 194, CRP 14.0. Patient is being continued on dexamethasone 6 mg IV daily, Lovenox 50 mg subcu twice daily and multivitamins. Pulmonary is on board. Patient is tachypneic. Afebrile. Current medications reviewed. Objective - Vital Signs Vital signs: Vital Signs Temp 98.3 F 02/14/21 12:00 Pulse 103 H 02/14/21 15:00 Resp 32 H 02/14/21 15:00 BP 118/55 02/14/21 15:00 Pulse Ox 90 L 02/14/21 15:00 Intake & Output 02/13/21 02/14/21 02/14/21 18:59 06:59 18:59 Intake Total 4484.279 3545.188 1391.370 Output Total 685 795 415 Balance 525.561 4221.188 976.370 Weight 101.2 kg Intake: IV 936 1116 484 .9NS 180 160 Dextrose 5% in Water 1, 825 300 000 ml @ 75 mls/hr IV . [id number] MARIO with Sodium Bicarb (1 Meq/ml) 150 ml Rx#:[id number] Pressure bag 36 36 24 Sodium Chloride 0.9% 1, 900 75 000 ml @ 75 mls/hr IV . [id number] MARIO Rx#:[id number] Intake, IV Titration 683.434 564.188 517.370 Amount Cisatracurium 200 mg In 127.135 46.299 202.573 Sodium Chloride 0.9% 180 ml @ 1 MCG/KG/MIN 5.987 mls/hr IV .Q24H MARIO Rx#: [id number] Norepinephrine 8 mg In 201.463 57.928 Sodium Chloride 0.9% 250 ml @ 0.05 MCG/KG/MIN 9. 655 mls/hr IV .Q24H MARIO Rx#:[id number] propofoL 1,000 mg In 354.836 459.961 314.797 Empty Bag 1 bag @ Titrate IV .Q0M MARIO Rx#: [id number] Tube Feeding 200 270 Other 90 120 Output: Urine 685 795 415 Other: Voiding Method Indwelling Catheter Indwelling Catheter Indwelling Catheter ABP, PAP, CO, CI - Last Documented Arterial Blood Pressure 148/58 - Exam - Exam -GENERAL: The patient is intubated and sedated . HEENT: Pupils are round and equally reacting to light. No scleral icterus. No conjunctival pallor. Normocephalic, atraumatic. No thyromegaly. CARDIOVASCULAR: S1 and S2 present. No murmurs, rubs, or gallops. PULMONARY: Chest is clear to auscultation, no wheezing or crackles. ABDOMEN: Soft, nontender, nondistended, normoactive bowel sounds. No palpable organomegaly. MUSCULOSKELETAL: No joint swelling or deformity. EXTREMITIES: No cyanosis, clubbing, or pedal edema. NEUROLOGICAL: Gross neurological examination did not reveal any focal deficits. SKIN: No rashes. no petechiae. - Labs CBC & Chem 7: 02/16/21 04:30 02/16/21 04:30 Labs: Abnormal Lab Results - Last 24 Hours (Table) 02/13/21 02/13/21 02/13/21 Range/Units 14:11 17:27 17:42 D-Dimer (<0.60) mg/L FEU ABG pH (7.35-7.45) ABG pCO2 (35-45) mmHg ABG pO2 (83-108) mmHg ABG HCO3 (21-25) mmol/L ABG Total CO2 (19-24) mmol/L ABG O2 Saturation (94-97) % Potassium 6.2 H* 5.3 H (3.5-5.1) mmol/L Carbon Dioxide (22-30) mmol/L BUN (9-20) mg/dL Glucose (74-99) mg/dL POC Glucose (mg/dL) 129 H (75-99) mg/dL Calcium (8.4-10.2) mg/dL AST (17-59) U/L ALT (4-49) U/L Lactate Dehydrogenase (313-618) U/L Creatine Kinase (55-170) U/L C-Reactive Protein (<10.0) mg/L Total Protein (6.3-8.2) g/dL Albumin (3.5-5.0) g/dL 02/13/21 02/14/21 02/14/21 Range/Units 23:32 04:00 04:00 D-Dimer 24.99 H (<0.60) mg/L FEU ABG pH (7.35-7.45) ABG pCO2 (35-45) mmHg ABG pO2 (83-108) mmHg ABG HCO3 (21-25) mmol/L ABG Total CO2 (19-24) mmol/L ABG O2 Saturation (94-97) % Potassium 5.2 H (3.5-5.1) mmol/L Carbon Dioxide 34 H (22-30) mmol/L BUN 24 H (9-20) mg/dL Glucose 121 H (74-99) mg/dL POC Glucose (mg/dL) 134 H (75-99) mg/dL Calcium 8.1 L (8.4-10.2) mg/dL AST 91 H (17-59) U/L ALT 208 H (4-49) U/L Lactate Dehydrogenase 2000 H (313-618) U/L Creatine Kinase 194 H (55-170) U/L C-Reactive Protein 14.0 H (<10.0) mg/L Total Protein 5.7 L (6.3-8.2) g/dL Albumin 2.9 L (3.5-5.0) g/dL 02/14/21 02/14/21 02/14/21 Range/Units 05:14 10:08 11:41 D-Dimer (<0.60) mg/L FEU ABG pH 7.27 L (7.35-7.45) ABG pCO2 64 H 86 H* (35-45) mmHg ABG pO2 62 L 43 L* (83-108) mmHg ABG HCO3 37 H 39 H (21-25) mmol/L ABG Total CO2 39 H 42 H (19-24) mmol/L ABG O2 Saturation 91.5 L 71.1 L (94-97) % Potassium (3.5-5.1) mmol/L Carbon Dioxide (22-30) mmol/L BUN (9-20) mg/dL Glucose (74-99) mg/dL POC Glucose (mg/dL) 152 H (75-99) mg/dL Calcium (8.4-10.2) mg/dL AST (17-59) U/L ALT (4-49) U/L Lactate Dehydrogenase (313-618) U/L Creatine Kinase (55-170) U/L C-Reactive Protein (<10.0) mg/L Total Protein (6.3-8.2) g/dL Albumin (3.5-5.0) g/dL Microbiology - Last 24 Hours (Table) 02/09/21 21:00 Blood Culture - Preliminary Blood No Growth after 96 hours 02/09/21 21:17 Blood Culture - Preliminary Blood No Growth after 96 hours Assessment and Plan Assessment: Acute bilateral Covid pneumonia Acute hypoxic respiratory failure secondary to above. on mechanical ventilator Elevated inflammatory markers Severe cardiomyopathy EF: 20-25% Elevated troponin, secondary to Covid infection. Elevated d-dimer, with no evidence of PE on CTA of the chest Mildly elevated liver enzymes, secondary to covid Elevated lactic acid, came back to normal Emphysema Plan: This is a pleasant 65 years old male who presents with Covid. Non-STEMI Continue with vitamin C, vitamin D and zinc. Continue with steroids and lovenox BID. Pulmonary and cardiology is following. Labs and medication were reviewed.. Continue with symptomatic treatment. Resume home medication. Monitor lytes and vitals. DVT and GI prophylaxis. Further recommendations depends on the clinical course of the patient DVT prophylaxis: Subcutaneous Lovenox GI Prophylaxis: Pepcid PT/OT: Pending Prognosis is guarded Time with Patient: Greater than 30
--- NOTE | 2021-02-16 19:59 | P.PN ---
Subjective Progress Note Date: 02/15/21 Principal diagnosis: Acute bilateral Covid pneumonia Acute hypoxic respiratory failure secondary to above. on mechanical ventilator This is a pleasant 65 years old male with no significant past medical history who presents because of one-week history of dyspnea associated with high fever at 101.3 at home. Associated with coughing. He feels generally weak but no significant chest pain. Patient dyspnea was getting more worse and he was not feeling well so family brought him to the hospital. His symptoms started about 2 weeks Patient is poor historian and is oxygen saturation was troponin while he was on high flow nasal cannula and he has to be placed on BiPAP and sent to the ICU from emergency room Patient is ex-smoker, he quit a few months ago. Used to smoke 2 packs per day. Patient is tachypneic with a breathing rate of 30, he is saturating any to on 60 L/m of oxygen via high flow cannula. A febrile. CBC, and BMP are unremarkable. Liver enzymes slightly elevated with AST 100 and ALT 86 and normal bilirubin of 0.7. D-dimer is elevated at 5.7. Elevated troponin 0.03, 0.06, 0.06 Chronic varus detected CTA of the chest: No evidence of PE. Extensive bilateral pneumonia, emphysema EKG showing sinus tachycardia at 107 with the bundle branch block and QTC 523 Chest x-ray: Bilateral infiltrates Ultrasound of the lower extremities is negative for DVT on both sides In ED he was started on Lovenox, normal saline at 75 mL/h, one-time dose of tocilizumab per pulmonary team , vitamin C, zinc and vitamin D. Patient has been evaluated by pulmonary service, he was started on BiPAP and admitted to the ICU 02/11/2021 Patient remains in the ICU, monitored closely for his hypoxia, he needs BiPAP most of the time of continuously. Has increased inflammatory markers with ferritin 1519, LDH 2339 and selective 1438. D-dimer is elevated at 5.7 and he is placed on therapeutic dose of Lovenox. Chest x-ray showing bilateral infiltrate Remains on dexamethasone and vitamin cocktail for Covid, he also received 1 dose of tocilizumab and convalescent plasma Also he is on metoprolol and Lovenox 50 mg twice a day 02/12/2021 Patient seen and examined in the ICU for Covid pneumonia, this morning his respiratory status deteriorated and he had to be intubated and placed on mechanical ventilation, also blood pressure was troponin even with boluses of normal saline and he has to be placed on Levophed at 0.05. Vent setting showing PEEP 10, respiratory rate 30, dental: 450 and FiO2 is 100%. Dictated hydrogenase almost doubled to 4124 and C-reactive protein is high at 20. D-dimer more than 34. Liver enzymes slightly elevated. She remains on metoprolol 25 mg, Lovenox 50 mg dexamethasone, vitamin C, D and zinc. Also he is started on small dose of Levophed. And metoprolol 02/14/2021 Patient is currently in MICU and remains intubated. Patient was intubated on 02/12/2021. Currently on mechanical ventilator and is on sedation. Chest x-ray showed COPD with borderline heart size. Diffuse interstitial opacities and more confluent bibasilar airspace disease, right greater than left, (without significant change. Laboratory data showed D-dimer 24.99, potassium 5.2, bicarb 34 BUN 24 creatinine 0.79 calcium 8.1 ferritin 1008.5 AST 91 ALT 208 LDH 2000 CPK 194, CRP 14.0. Patient is being continued on dexamethasone 6 mg IV daily, Lovenox 50 mg subcu twice daily and multivitamins. Pulmonary is on board. Patient is tachypneic. Afebrile. 02/15/2021 Patient is currently in MICU remains intubated and also on sedation and paralyzed. Assist control 500, respiratory 32 and PEEP of 17 and FiO2 30%. Chest x-ray showed mild improvement of diffuse increased lung markings. Patient is tachypneic. Blood pressure is stable. Patient is afebrile. Laboratory data showed diabetes 11.7 hemoglobin 16.1 MCV 101.1 and platelets 178 ABG showed pH of 7.3 PCO2 73 and PO2 53 Sodium 137 potassium 5.6 bicarb is 34 BUN 34 and creatinine 0.9 AST is 57 ALT from 58 LDH 1693 CRP 10.3 Patient is on enteral feeding. Critical care team is on board. Current medications reviewed. Objective - Vital Signs Vital signs: Vital Signs Temp 98.6 F 02/15/21 16:00 Pulse 107 H 02/15/21 19:00 Resp 32 H 02/15/21 19:00 BP 104/57 02/15/21 19:00 Pulse Ox 92 L 02/15/21 19:00 Intake & Output 02/15/21 02/15/21 02/16/21 06:59 18:59 06:59 Intake Total 3006.817 5509.789 50 Output Total 325 550 Balance 1038.937 816.789 50 Weight 107.1 kg 107.1 kg Intake: IV 276 276 23 .9NS 240 240 20 Pressure bag 36 36 3 Intake, IV Titration 673.937 555.789 Amount Cisatracurium 200 mg In 82.098 170.644 Sodium Chloride 0.9% 180 ml @ 1 MCG/KG/MIN 5.987 mls/hr IV .Q24H [facility] Rx#: [id number] propofoL 1,000 mg In 591.839 385.145 Empty Bag 1 bag @ Titrate IV .Q0M [facility] Rx#: [id number] Tube Feeding 324 405 27 Other 90 130 Output: Urine 325 550 Other: Voiding Method Indwelling Catheter Indwelling Catheter ABP, PAP, CO, CI - Last Documented Arterial Blood Pressure 96/46 - Exam - Exam -GENERAL: The patient is intubated and sedated . HEENT: Pupils are round and equally reacting to light. No scleral icterus. No conjunctival pallor. Normocephalic, atraumatic. No thyromegaly. CARDIOVASCULAR: S1 and S2 present. No murmurs, rubs, or gallops. PULMONARY: Chest is clear to auscultation, no wheezing or crackles. ABDOMEN: Soft, nontender, nondistended, normoactive bowel sounds. No palpable organomegaly. MUSCULOSKELETAL: No joint swelling or deformity. EXTREMITIES: No cyanosis, clubbing, or pedal edema. NEUROLOGICAL: Gross neurological examination did not reveal any focal deficits. SKIN: No rashes. no petechiae. - Labs CBC & Chem 7: 02/16/21 04:30 02/16/21 04:30 Labs: Abnormal Lab Results - Last 24 Hours (Table) 02/15/21 02/15/21 02/15/21 Range/Units 00:38 04:15 04:15 WBC 11.7 H (3.8-10.6) k/uL MCV 101.1 H (80.0-100.0) fL Neutrophils # 10.5 H (1.3-7.7) k/uL Lymphocytes # 0.8 L (1.0-4.8) k/uL D-Dimer (<0.60) mg/L FEU ABG pH (7.35-7.45) ABG pCO2 (35-45) mmHg ABG pO2 (83-108) mmHg ABG HCO3 (21-25) mmol/L ABG Total CO2 (19-24) mmol/L ABG O2 Saturation (94-97) % Potassium 5.6 H (3.5-5.1) mmol/L Carbon Dioxide 34 H (22-30) mmol/L BUN 34 H (9-20) mg/dL Glucose 134 H (74-99) mg/dL POC Glucose (mg/dL) 139 H (75-99) mg/dL ALT 158 H (4-49) U/L Lactate Dehydrogenase 1693 H (313-618) U/L C-Reactive Protein 10.3 H (<10.0) mg/L Total Protein 6.1 L (6.3-8.2) g/dL Albumin 3.2 L (3.5-5.0) g/dL 02/15/21 02/15/21 02/15/21 Range/Units 04:15 04:51 06:16 WBC (3.8-10.6) k/uL MCV (80.0-100.0) fL Neutrophils # (1.3-7.7) k/uL Lymphocytes # (1.0-4.8) k/uL D-Dimer 14.24 H (<0.60) mg/L FEU ABG pH 7.30 L (7.35-7.45) ABG pCO2 73 H* (35-45) mmHg ABG pO2 53 L* (83-108) mmHg ABG HCO3 36 H (21-25) mmol/L ABG Total CO2 38 H (19-24) mmol/L ABG O2 Saturation 83.4 L (94-97) % Potassium (3.5-5.1) mmol/L Carbon Dioxide (22-30) mmol/L BUN (9-20) mg/dL Glucose (74-99) mg/dL POC Glucose (mg/dL) 148 H (75-99) mg/dL ALT (4-49) U/L Lactate Dehydrogenase (313-618) U/L C-Reactive Protein (<10.0) mg/L Total Protein (6.3-8.2) g/dL Albumin (3.5-5.0) g/dL 02/15/21 02/15/21 02/15/21 Range/Units 11:46 12:12 17:53 WBC (3.8-10.6) k/uL MCV (80.0-100.0) fL Neutrophils # (1.3-7.7) k/uL Lymphocytes # (1.0-4.8) k/uL D-Dimer (<0.60) mg/L FEU ABG pH 7.30 L (7.35-7.45) ABG pCO2 72 H* (35-45) mmHg ABG pO2 58 L* (83-108) mmHg ABG HCO3 35 H (21-25) mmol/L ABG Total CO2 37 H (19-24) mmol/L ABG O2 Saturation 86.9 L (94-97) % Potassium (3.5-5.1) mmol/L Carbon Dioxide (22-30) mmol/L BUN (9-20) mg/dL Glucose (74-99) mg/dL POC Glucose (mg/dL) 150 H 140 H (75-99) mg/dL ALT (4-49) U/L Lactate Dehydrogenase (313-618) U/L C-Reactive Protein (<10.0) mg/L Total Protein (6.3-8.2) g/dL Albumin (3.5-5.0) g/dL Microbiology - Last 24 Hours (Table) 02/09/21 21:00 Blood Culture - Preliminary Blood No Growth after 120 hours 02/09/21 21:17 Blood Culture - Preliminary Blood No Growth after 120 hours Assessment and Plan Assessment: Acute bilateral Covid pneumonia Acute hypoxic respiratory failure secondary to above. on mechanical ventilator Elevated inflammatory markers Severe cardiomyopathy EF: 20-25% Elevated troponin, secondary to Covid infection. Elevated d-dimer, with no evidence of PE on CTA of the chest Mildly elevated liver enzymes, secondary to covid Elevated lactic acid, came back to normal Emphysema Plan: This is a pleasant 65 years old male who presents with Covid. Non-STEMI Continue with vitamin C, vitamin D and zinc. Continue with steroids and lovenox BID. Pulmonary and cardiology is following. Labs and medication were reviewed.. Continue with symptomatic treatment. Resume home medication. Monitor lytes and vitals. DVT and GI prophylaxis. Further recommendations depends on the clinical course of the patient DVT prophylaxis: Subcutaneous Lovenox GI Prophylaxis: Pepcid PT/OT: Pending Prognosis is guarded Time with Patient: Greater than 30
--- NOTE | 2021-02-16 20:01 | P.PN ---
Subjective Progress Note Date: 02/16/21 Principal diagnosis: Acute bilateral Covid pneumonia Acute hypoxic respiratory failure secondary to above. on mechanical ventilator This is a pleasant 65 years old male with no significant past medical history who presents because of one-week history of dyspnea associated with high fever at 101.3 at home. Associated with coughing. He feels generally weak but no significant chest pain. Patient dyspnea was getting more worse and he was not feeling well so family brought him to the hospital. His symptoms started about 2 weeks Patient is poor historian and is oxygen saturation was troponin while he was on high flow nasal cannula and he has to be placed on BiPAP and sent to the ICU from emergency room Patient is ex-smoker, he quit a few months ago. Used to smoke 2 packs per day. Patient is tachypneic with a breathing rate of 30, he is saturating any to on 60 L/m of oxygen via high flow cannula. A febrile. CBC, and BMP are unremarkable. Liver enzymes slightly elevated with AST 100 and ALT 86 and normal bilirubin of 0.7. D-dimer is elevated at 5.7. Elevated troponin 0.03, 0.06, 0.06 Chronic varus detected CTA of the chest: No evidence of PE. Extensive bilateral pneumonia, emphysema EKG showing sinus tachycardia at 107 with the bundle branch block and QTC 523 Chest x-ray: Bilateral infiltrates Ultrasound of the lower extremities is negative for DVT on both sides In ED he was started on Lovenox, normal saline at 75 mL/h, one-time dose of tocilizumab per pulmonary team , vitamin C, zinc and vitamin D. Patient has been evaluated by pulmonary service, he was started on BiPAP and admitted to the ICU 02/11/2021 Patient remains in the ICU, monitored closely for his hypoxia, he needs BiPAP most of the time of continuously. Has increased inflammatory markers with ferritin 1519, LDH 2339 and selective 1438. D-dimer is elevated at 5.7 and he is placed on therapeutic dose of Lovenox. Chest x-ray showing bilateral infiltrate Remains on dexamethasone and vitamin cocktail for Covid, he also received 1 dose of tocilizumab and convalescent plasma Also he is on metoprolol and Lovenox 50 mg twice a day 02/12/2021 Patient seen and examined in the ICU for Covid pneumonia, this morning his respiratory status deteriorated and he had to be intubated and placed on mechanical ventilation, also blood pressure was troponin even with boluses of normal saline and he has to be placed on Levophed at 0.05. Vent setting showing PEEP 10, respiratory rate 30, dental: 450 and FiO2 is 100%. Dictated hydrogenase almost doubled to 4124 and C-reactive protein is high at 20. D-dimer more than 34. Liver enzymes slightly elevated. She remains on metoprolol 25 mg, Lovenox 50 mg dexamethasone, vitamin C, D and zinc. Also he is started on small dose of Levophed. And metoprolol 02/14/2021 Patient is currently in MICU and remains intubated. Patient was intubated on 02/12/2021. Currently on mechanical ventilator and is on sedation. Chest x-ray showed COPD with borderline heart size. Diffuse interstitial opacities and more confluent bibasilar airspace disease, right greater than left, (without significant change. Laboratory data showed D-dimer 24.99, potassium 5.2, bicarb 34 BUN 24 creatinine 0.79 calcium 8.1 ferritin 1008.5 AST 91 ALT 208 LDH 2000 CPK 194, CRP 14.0. Patient is being continued on dexamethasone 6 mg IV daily, Lovenox 50 mg subcu twice daily and multivitamins. Pulmonary is on board. Patient is tachypneic. Afebrile. 02/15/2021 Patient is currently in MICU remains intubated and also on sedation and paralyzed. Assist control 500, respiratory 32 and PEEP of 17 and FiO2 30%. Chest x-ray showed mild improvement of diffuse increased lung markings. Patient is tachypneic. Blood pressure is stable. Patient is afebrile. Laboratory data showed diabetes 11.7 hemoglobin 16.1 MCV 101.1 and platelets 178 ABG showed pH of 7.3 PCO2 73 and PO2 53 Sodium 137 potassium 5.6 bicarb is 34 BUN 34 and creatinine 0.9 AST is 57 ALT from 58 LDH 1693 CRP 10.3 Patient is on enteral feeding. 02/16/2021 Patient is currently MICU on mechanical L also on sedation and paralyzed. Currently on assist control 100 PEEP of 17 and FiO2 50%. ABG showed pH of 7.31, PCO2 68 and PO2 60 Chest x-ray showed bibasilar infiltrates. Findings are improving. Laboratory showed WBC 12.7 hemoglobin 15.3 and platelets 167 D-dimer is 9.64 sodium 137 potassium 5.1 bicarb is 34 BUN 59 creatinine 1.52 blood sugar is 150 AST 61 ALT 144 LDH 1363 total protein 5.9 albumin 3.1 and procalcitonin 1.25 Patient is being continued on dexamethasone, Lovenox twice daily, multivitamins. Critical care team is on board. Current medications reviewed. Objective - Vital Signs Vital signs: Vital Signs Temp 98.6 F 02/16/21 12:00 Pulse 112 H 02/16/21 15:00 Resp 32 H 02/16/21 15:00 BP 159/66 02/16/21 15:00 Pulse Ox 94 L 02/16/21 15:00 Intake & Output 02/15/21 02/16/21 02/16/21 18:59 06:59 18:59 Intake Total 1389.280 656 976.908 Output Total 550 735 675 Balance 839.280 -79 301.908 Weight 107.1 kg Intake: IV 276 196 207 .9NS 240 160 180 Pressure bag 36 36 27 Intake, IV Titration 578.280 100 406.908 Amount Cisatracurium 200 mg In 170.644 200 Sodium Chloride 0.9% 180 ml @ 1 MCG/KG/MIN 5.987 mls/hr IV .Q24H [facility] Rx#: [id number] Norepinephrine 8 mg In 6.908 Sodium Chloride 0.9% 250 ml @ 0.05 MCG/KG/MIN 10. 362 mls/hr IV .Q24H [facility] Rx#:[id number] propofoL 1,000 mg In 407.636 100 200 Empty Bag 1 bag @ Titrate IV .Q0M [facility] Rx#: [id number] Tube Feeding 405 270 243 Other 130 90 120 Output: Urine 550 735 675 Other: Voiding Method Indwelling Catheter Indwelling Catheter Indwelling Catheter # Voids 45 ABP, PAP, CO, CI - Last Documented Arterial Blood Pressure 129/53 - Exam - Exam -GENERAL: The patient is intubated and sedated . HEENT: Pupils are round and equally reacting to light. No scleral icterus. No conjunctival pallor. Normocephalic, atraumatic. No thyromegaly. CARDIOVASCULAR: S1 and S2 present. No murmurs, rubs, or gallops. PULMONARY: Chest is clear to auscultation, no wheezing or crackles. ABDOMEN: Soft, nontender, nondistended, normoactive bowel sounds. No palpable organomegaly. MUSCULOSKELETAL: No joint swelling or deformity. EXTREMITIES: No cyanosis, clubbing, or pedal edema. NEUROLOGICAL: Gross neurological examination did not reveal any focal deficits. SKIN: No rashes. no petechiae. - Labs CBC & Chem 7: 02/16/21 04:30 02/16/21 04:30 Labs: Abnormal Lab Results - Last 24 Hours (Table) 02/15/21 02/16/21 02/16/21 Range/Units 17:53 01:07 04:28 WBC (3.8-10.6) k/uL Neutrophils # (1.3-7.7) k/uL Lymphocytes # (1.0-4.8) k/uL D-Dimer (<0.60) mg/L FEU ABG pH 7.31 L (7.35-7.45) ABG pCO2 69 H (35-45) mmHg ABG pO2 60 L (83-108) mmHg ABG HCO3 35 H (21-25) mmol/L ABG Total CO2 37 H (19-24) mmol/L ABG O2 Saturation 89.4 L (94-97) % Carbon Dioxide (22-30) mmol/L BUN (9-20) mg/dL Creatinine (0.66-1.25) mg/dL Glucose (74-99) mg/dL POC Glucose (mg/dL) 140 H 141 H (75-99) mg/dL AST (17-59) U/L ALT (4-49) U/L Lactate Dehydrogenase (313-618) U/L Total Protein (6.3-8.2) g/dL Albumin (3.5-5.0) g/dL Urine Protein (Negative) Urine Blood (Negative) Ur Leukocyte Esterase (Negative) Urine RBC (0-5) /hpf Urine WBC (0-5) /hpf Amorphous Sediment (None) /hpf Urine Bacteria (None) /hpf Urine Mucus (None) /hpf 02/16/21 02/16/21 02/16/21 Range/Units 04:30 04:30 04:30 WBC 12.7 H (3.8-10.6) k/uL Neutrophils # 11.2 H (1.3-7.7) k/uL Lymphocytes # 0.8 L (1.0-4.8) k/uL D-Dimer 9.64 H (<0.60) mg/L FEU ABG pH (7.35-7.45) ABG pCO2 (35-45) mmHg ABG pO2 (83-108) mmHg ABG HCO3 (21-25) mmol/L ABG Total CO2 (19-24) mmol/L ABG O2 Saturation (94-97) % Carbon Dioxide 34 H (22-30) mmol/L BUN 59 H (9-20) mg/dL Creatinine 1.52 H (0.66-1.25) mg/dL Glucose 150 H (74-99) mg/dL POC Glucose (mg/dL) (75-99) mg/dL AST 61 H (17-59) U/L ALT 144 H (4-49) U/L Lactate Dehydrogenase 1363 H (313-618) U/L Total Protein 5.9 L (6.3-8.2) g/dL Albumin 3.1 L (3.5-5.0) g/dL Urine Protein (Negative) Urine Blood (Negative) Ur Leukocyte Esterase (Negative) Urine RBC (0-5) /hpf Urine WBC (0-5) /hpf Amorphous Sediment (None) /hpf Urine Bacteria (None) /hpf Urine Mucus (None) /hpf 02/16/21 02/16/21 02/16/21 Range/Units 05:58 11:19 15:23 WBC (3.8-10.6) k/uL Neutrophils # (1.3-7.7) k/uL Lymphocytes # (1.0-4.8) k/uL D-Dimer (<0.60) mg/L FEU ABG pH (7.35-7.45) ABG pCO2 (35-45) mmHg ABG pO2 (83-108) mmHg ABG HCO3 (21-25) mmol/L ABG Total CO2 (19-24) mmol/L ABG O2 Saturation (94-97) % Carbon Dioxide (22-30) mmol/L BUN (9-20) mg/dL Creatinine (0.66-1.25) mg/dL Glucose (74-99) mg/dL POC Glucose (mg/dL) 138 H 152 H (75-99) mg/dL AST (17-59) U/L ALT (4-49) U/L Lactate Dehydrogenase (313-618) U/L Total Protein (6.3-8.2) g/dL Albumin (3.5-5.0) g/dL Urine Protein 1+ H (Negative) Urine Blood Trace H (Negative) Ur Leukocyte Esterase Small H (Negative) Urine RBC 25 H (0-5) /hpf Urine WBC 11 H (0-5) /hpf Amorphous Sediment Rare H (None) /hpf Urine Bacteria Many H (None) /hpf Urine Mucus Rare H (None) /hpf Microbiology - Last 24 Hours (Table) 02/09/21 21:17 Blood Culture - Final Blood No Growth after 144 hours 02/09/21 21:00 Blood Culture - Final Blood No Growth after 144 hours Assessment and Plan Assessment: Acute bilateral Covid pneumonia Acute hypoxic respiratory failure secondary to above. on mechanical ventilator Elevated inflammatory markers Severe cardiomyopathy EF: 20-25% Elevated troponin, secondary to Covid infection. Elevated d-dimer, with no evidence of PE on CTA of the chest Mildly elevated liver enzymes, secondary to covid Elevated lactic acid, came back to normal Emphysema Plan: This is a pleasant 65 years old male who presents with Covid. Non-STEMI Continue with vitamin C, vitamin D and zinc. Continue with steroids and lovenox BID. Pulmonary and cardiology is following. Labs and medication were reviewed.. Continue with symptomatic treatment. Resume home medication. Monitor lytes and vitals. DVT and GI prophylaxis. Further recommendations depends on the clinical course of the patient DVT prophylaxis: Subcutaneous Lovenox GI Prophylaxis: Pepcid PT/OT: Pending Prognosis is guarded Time with Patient: Greater than 30
[2021-02-16 23:50] LABS: Glucose,Whole Blood 154 mg/dL (75-99)
[2021-02-17 05:06] LABS: ABG Base Excess 10.8 mmol/L; ABG HCO3 38 mmol/L (21-25); ABG Oxygen Saturation 86.6 % (94-97); ABG PH 7.27 (7.35-7.45); ABG TCO2 40 mmol/L (19-24); Allen Test Performed? Yes
[2021-02-17 05:09] LABS: ABG PCO2 82 mmHg (35-45)
[2021-02-17 05:10] LABS: ABG PO2 56 mmHg (83-108)
[2021-02-17 05:23] LABS: Basophils % (A) 0 %; Eosinophils # (A) 0.1 k/uL (0-0.7); Eosinophils % (A) 1 %; HGB 14.1 gm/dL (13.0-17.5); Hypochromasia Moderate; Lymphocytes # (A) 0.9 k/uL (1.0-4.8); Lymphocytes % (A) 7 %; MCH 33.3 pg (25.0-35.0); MCHC 32.7 g/dL (31.0-37.0); MCV 101.8 fL (80.0-100.0); Macrocytosis Slight; Mean Platelet Volume 8.4; Monocytes # (A) 0.6 k/uL (0-1.0); Monocytes % (A) 5 %; Neutrophils # (A) 11.8 k/uL (1.3-7.7); Neutrophils % (A) 87 %; Platelet Count 162 k/uL (150-450); RBC 4.23 m/uL (4.30-5.90); WBC 13.6 k/uL (3.8-10.6)
[2021-02-17 05:29] LABS: Albumin 3.3 g/dL (3.5-5.0); C Reactive Protein 6.5 mg/L (<10.0); Calcium 8.6 mg/dL (8.4-10.2); Potassium 5.5 mmol/L (3.5-5.1); Total Bilirubin 0.6 mg/dL (0.2-1.3)
[2021-02-17 05:42] LABS: Glucose,Whole Blood 125 mg/dL (75-99)
--- NOTE | 2021-02-17 07:38 | P.PN ---
Subjective Progress Note Date: 02/17/21 02/13/2021, the patient is being seen for follow-up in intensive care unit. This is a 65-year-old -[place] male patient was admitted with Covid 19 related pneumonia and the patient was initially given high flow oxygen and later on BiPAP and because of ongoing failure, the patient was intubated and placed on a mechanical ventilator. He is a chronic smoker. He also smokes marijuana. The patient was intubated yesterday on 02/12/2021 because of respiratory failure related to Covid 19 related pneumonia. The patient is currently on assist control mode of ventilation. The patient is a rate of 36 with FiO2 of 9 90% 0% and a PEEP of 15 and tidal volume of 500. Your pressures around 41 metastatic pressure of 39. The patient remains sedated on propofol running at 60 mcg/kg per minute and the patient is also paralyzed at 2 mcg/kg per minute. Post intubation, the patient requires also pressors and currently norepinephrine is running at 0.02mcg/kg/per minute. The patient is mechanical ventilator. The patient normal saline at the rate of 75 mL an hour. Chest x-ray showing diffuse but the pulmonary patchy infiltrates. ET tube is in a good location. Note that the patient to telemetry markers from yesterday were quite elevated. LDH level was 4124 and the CRP was 20.5. The patient is currently on Decadron. The patient is also on Lovenox and the patient also received convalescent plasma and Tocilizumab. The LFTs are slightly elevated and the patient has some mild transaminitis related to COVID 19. Based on elevation of the d-dimer, the patient is being given 50 mg of Lovenox which is a half a milligram per KG every 12 hours. The blood gases from today showing a pH of 7.23 with a pCO2 of 63 and pO2 of 109. This was done and FiO2 of 90%. Blood work from today shows a d- dimer of more than 34, potassium level is down to 6.2 and the patient will need obviously D50 insulin along with 2 A of sodium bicarb. This hyperkalemia is related to acidosis. The patient's liver function tests are also elevated as the patient has mild transaminitis, ALT is 229, AST 307, LDH is 2716, pro calcitonin is at 0.14, CRP was 17.8. On 02/14/2021, I'm seeing the patient for a follow-up. This is a case of Covid 19 related pneumonia with secondary hypoxic respiratory failure and the patient has been intubated on 02/12/2021 and the patient is currently being seen in follow-up. On today's evaluation, the patient is on propofol which is running at 75 mg/kg per minute and the patient is also on Nimbex at 3 mcg/kg per minute. He is was sedated insipidus with the mechanical ventilator which is currently running at a tidal volume of 500 with a rate of 36 and it PEEP 15 and an FiO2 of 60%. The patient's blood gases from today showed a pH of 7.37 with a pCO2 of 64 and pO2 of 62 and this was on FiO2 of 60%. His chest x-ray from today is showing diffuse bilateral pulmonary infiltrates, essentially unchanged compared to yesterday and ET tube is in a good location. The patient's inflammatory markers on today's evaluation remain elevated although they're improving. The patient's LDH level is down to 2000 and his CRP level is down to 14 and the d- dimer is still elevated at 24 although is improving. The patient is currently on Decadron 6 mg IV every 24 hours. He is also on Lovenox 50 mg subcu 3 times a day. He is also on a bicarb drip this was added yesterday as the patient was having significant acidosis which was mainly respiratory acidosis and secondary hyperkalemia. Potassium level is down to 5.2 and a pH currently is at 7.37 and as such the bicarb infusion can be discontinued. Creatinine is down to 0.7 and his also recovered from his acute kidney injury. He is on enteral feeding for nutritional support and currently this is running at 27 mL an hour of Nepro. The urine output is adequate and the patient's net fluid balance is +2.1 L over the past 24 hours. His weight is currently up to 101 kg. On today's evaluation for 2020, the patient remains sedated and paralyzed. The patient is on propofol at 75 mcg/kg per minute and the patient is also on Nimbex at 2 mcg/kg/m. The patient is calm and comfortable and successful mechanical ventilator which is running currently with tidal volume of 500, rate of 32, PEEP of 17 and an FiO2 of 50%. The blood is from today showed a pH of 7.3 with a pCO2 of 73 and pO2 of 52. This was done and a PEEP of 17. The chest x-ray is unchanged and there is diffuse bilateral pulmonary infiltrates right more than left lower lung more than the upper lobes. ET tube is high in the trachea and it needs to be pushed then by another centimeter. Orogastric tube is in a good location. The patient otherwise is he was dynamically stable. He remains on Decadron. He remains on Lovenox 50 mg subcutaneous twice a day. He is on IV fluids and currently is receiving normal saline at the rate of 20 mL an hour. Fluid balance over the past 24 hours has been +2.2 L. The patient has been persistently in a positive fluid balance. As for the rest of the blood work, the patient's d-dimer is at 14 which is lower, his LDH is 1693, lower and the CRP is 10.3, lower. As for the rest of the electrolytes, his potassium level is at 5.6 and a serum bicarb is 34 with a BUN of 34 and a creatinine of 0.9. He is on enteral feeding for nutritional support and he is currently receiving Nepro at 27 mL an hour. No other major events overnight. I did do some ventilator changes on the patient y . yesterday which failed. I tried to wean off his feet and it failed and the patient became hypoxic and currently is a 17 of PEEP. he has a peak airway pressure in the setting of a pressure of 36 and 34 respectively On 02/16/2021, the patient is being seen in follow-up in the intensive care unit. The patient remains sedated and paralyzed. On today's evaluation, propofol is running at 70 mcg/kg per minute and the patient is also paralyzed with Nimbex running at 2 mcg/kg per minute. He is essentially the same as yesterday. Meanwhile, the patient remains on a mechanical ventilator. The patient is on the volumes second assist-control mode with a tidal volume of 500, rate of 32, FiO2 of 50% and a PEEP of 17. Again, these are the same ventilator settings as of yesterday. PH is at 7.31 with a pCO2 of 68 and pO2 of 60. Chest x-ray from today is not showing any major interval change. Orotracheal tube is in place. NG tube in place. There are bilateral pulmonary infiltrates and the findings are typical of ARDS. Meanwhile, the peak airway pressures at 36, static pressures are 34. These are the same numbers as of yesterday. The patient is a d-dimer of 9.6 with CRP of 7.6 and a LDH level of 1363. Currently is running a lower blood pressure with a systolic in the 90s. Lopressor has been held. Cardiac rhythm is sinus. IV fluids are running at disease an hour and the patient is not fluid balance is around 2.2 L positive over the past 24 hours. The patient is having a low-grade fever. His T-max was 100.2. Note that he is not covered with any antibiotics at this point in time. White cell count of 12.7. This of the blood work and electrolytes showed development of an acute kidney injury. Creatinine is up to 1.5 on today's evaluation and the rest of the blood work shows sodium 137, potassium of 5.1, LFTs are also showing some mild component of transaminitis. He is on enteral feeding for nutritional support and the patient is currently receiving Nepro 25 mL an hour. His urine o utput is in order of 40 cc hr 2020, the patient is not doing much in progress. His condition was stable yesterday and he continues to be sedated and paralyzed on today's evaluation where propofol is running at 65 mcg/kg per minute and the patient is also paralyzed on Nimbex at 2 mcg/kg per minute. Remains on the same ventilator setting with a tidal volume of 450, rate of 32, PEEP of 17 with a FiO2 of 50%. Chest x-ray findings and essentially unchanged over the past several days. The blood gases from today is showing a pH of 7.27 with a pCO2 of 81 and pO2 of 55. The peak airway pressure is around 35 and this static airway pressure is 33. The patient's hemodynamics is stable. He developed an acute kidney injury yesterday related to hypotension and he was given IV fluids and the creatinine is down to 1.2. His net fluid balance on today's evaluation is in the order of +2.2 L 4 02/15/2021 and +764 for 2020. He is currently on no pressors. Note that the patient had some fever since yesterday. The patient was pancultured. There is also still pending for now. No antibiotics was provided. The pro- calcitonin level came back quite elevated. The level is at 1.25. Meanwhile, he remains stable hemodynamically and his renal function is improving and the creatinine is down to 1.3. He is producing adequate amount of urine output for now. He is still running a low-grade fever White count at 13.6, inflammatory markers showed a d-dimer of 5.4 with a LDH level of 1230 and the CRP is at 6. He remains on steroids and the patient is receiving Decadron 6 mg IV every 12 hours. He did have an echocardiogram that showed impaired LV function with an ejection fraction of around 20-25%. He was trialed on dobutamine yesterday to augment his cardiac output and improve the renal failure. He did become tachycardic with dobutamine and this was discontinued. No other processes was given. He remains on enteral feeding for nutritional support and he is receiving Nepro at the rate of 27 mL an hour. Otherwise, no other major events occurring overnight. Objective - Vital Signs Vital signs: Vital Signs Temp 99.4 F 02/17/21 04:00 Pulse 98 02/17/21 06:00 Resp 32 H 02/17/21 06:00 BP 124/60 02/17/21 06:00 Pulse Ox 91 L 02/17/21 06:00 Intake & Output 02/16/21 02/17/21 02/17/21 18:59 06:59 18:59 Intake Total 1336.908 939.744 Output Total 835 530 Balance 501.908 409.744 Weight 104.9 kg Intake: IV 256 276 .9NS 220 240 Pressure bag 36 36 Intake, IV Titration 606.908 222.744 Amount Cisatracurium 200 mg In 200 122.744 Sodium Chloride 0.9% 180 ml @ 1 MCG/KG/MIN 5.987 mls/hr IV .Q24H [facility]IO Rx#: [id number] Norepinephrine 8 mg In 6.908 Sodium Chloride 0.9% 250 ml @ 0.05 MCG/KG/MIN 10. 362 mls/hr IV .Q24H [facility]IO Rx#:[id number] propofoL 1,000 mg In 400 100 Empty Bag 1 bag @ Titrate IV .Q0M MARIO Rx#: [id number] Tube Feeding 324 351 Other 150 90 Output: Urine 835 530 Other: Voiding Method Indwelling Catheter Indwelling Catheter ABP, PAP, CO, CI - Last Documented Arterial Blood Pressure 98/44 - Exam GENERAL EXAM: Intubated, sedated, paralyzed 65-year-old male, currently on the mechanical ventilator , comfortable in no apparent distress. HEAD: Normocephalic/atraumatic. EYES: Fish reaction of pupils, equal size. Conjunctiva pink, sclera white. NOSE: Clear with pink turbinates. THROAT: Oral endotracheal and gastric tube secured in place. No erythema or exudates. NECK: No masses, no JVD, no thyroid enlargement, no adenopathy. CHEST: No chest wall deformity. Symmetrical expansion. LUNGS: Equal air entry with diffuse bibasilar crackles CVS: Regular rate and rhythm, normal S1 and S2, no gallops, no murmurs, no rubs ABDOMEN: Soft, nontender. No hepatosplenomegaly, normal bowel sounds, no guarding or rigidity. EXTREMITIES: No clubbing, no edema, no cyanosis, 2+ pulses and upper and lower extremities. MUSCULOSKELETAL: Muscle strength and tone normal. SPINE: No scoliosis or deformity SKIN: No rashes CENTRAL NERVOUS SYSTEM: Sedated, paralyzed, tone is normal in all 4 extremities. PSYCHIATRIC: Sedated, paralyzed - Labs CBC & Chem 7: 02/17/21 05:00 02/17/21 05:00 Labs: Abnormal Lab Results - Last 24 Hours (Table) 02/16/21 02/16/21 02/16/21 Range/Units 04:30 11:19 15:23 WBC (3.8-10.6) k/uL RBC (4.30-5.90) m/uL MCV (80.0-100.0) fL Neutrophils # (1.3-7.7) k/uL Lymphocytes # (1.0-4.8) k/uL D-Dimer (<0.60) mg/L FEU ABG pH (7.35-7.45) ABG pCO2 (35-45) mmHg ABG pO2 (83-108) mmHg ABG HCO3 (21-25) mmol/L ABG Total CO2 (19-24) mmol/L ABG O2 Saturation (94-97) % Potassium (3.5-5.1) mmol/L Carbon Dioxide (22-30) mmol/L BUN (9-20) mg/dL Glucose (74-99) mg/dL POC Glucose (mg/dL) 152 H (75-99) mg/dL AST (17-59) U/L ALT (4-49) U/L Lactate Dehydrogenase (313-618) U/L Total Protein (6.3-8.2) g/dL Albumin (3.5-5.0) g/dL Procalcitonin 1.25 H (0.02-0.09) ng/mL Urine Protein 1+ H (Negative) Urine Blood Trace H (Negative) Ur Leukocyte Esterase Small H (Negative) Urine RBC 25 H (0-5) /hpf Urine WBC 11 H (0-5) /hpf Amorphous Sediment Rare H (None) /hpf Urine Bacteria Many H (None) /hpf Urine Mucus Rare H (None) /hpf 02/16/21 02/16/21 02/17/21 Range/Units 17:33 23:49 05:00 WBC 13.6 H (3.8-10.6) k/uL RBC 4.23 L (4.30-5.90) m/uL MCV 101.8 H (80.0-100.0) fL Neutrophils # 11.8 H (1.3-7.7) k/uL Lymphocytes # 0.9 L (1.0-4.8) k/uL D-Dimer (<0.60) mg/L FEU ABG pH (7.35-7.45) ABG pCO2 (35-45) mmHg ABG pO2 (83-108) mmHg ABG HCO3 (21-25) mmol/L ABG Total CO2 (19-24) mmol/L ABG O2 Saturation (94-97) % Potassium (3.5-5.1) mmol/L Carbon Dioxide (22-30) mmol/L BUN (9-20) mg/dL Glucose (74-99) mg/dL POC Glucose (mg/dL) 134 H 154 H (75-99) mg/dL AST (17-59) U/L ALT (4-49) U/L Lactate Dehydrogenase (313-618) U/L Total Protein (6.3-8.2) g/dL Albumin (3.5-5.0) g/dL Procalcitonin (0.02-0.09) ng/mL Urine Protein (Negative) Urine Blood (Negative) Ur Leukocyte Esterase (Negative) Urine RBC (0-5) /hpf Urine WBC (0-5) /hpf Amorphous Sediment (None) /hpf Urine Bacteria (None) /hpf Urine Mucus (None) /hpf 02/17/21 02/17/21 02/17/21 Range/Units 05:00 05:00 05:02 WBC (3.8-10.6) k/uL RBC (4.30-5.90) m/uL MCV (80.0-100.0) fL Neutrophils # (1.3-7.7) k/uL Lymphocytes # (1.0-4.8) k/uL D-Dimer 5.41 H (<0.60) mg/L FEU ABG pH 7.27 L (7.35-7.45) ABG pCO2 82 H* (35-45) mmHg ABG pO2 56 L* (83-108) mmHg ABG HCO3 38 H (21-25) mmol/L ABG Total CO2 40 H (19-24) mmol/L ABG O2 Saturation 86.6 L (94-97) % Potassium 5.5 H (3.5-5.1) mmol/L Carbon Dioxide 35 H (22-30) mmol/L BUN 59 H (9-20) mg/dL Glucose 133 H (74-99) mg/dL POC Glucose (mg/dL) (75-99) mg/dL AST 65 H (17-59) U/L ALT 143 H (4-49) U/L Lactate Dehydrogenase 1230 H (313-618) U/L Total Protein 6.0 L (6.3-8.2) g/dL Albumin 3.3 L (3.5-5.0) g/dL Procalcitonin (0.02-0.09) ng/mL Urine Protein (Negative) Urine Blood (Negative) Ur Leukocyte Esterase (Negative) Urine RBC (0-5) /hpf Urine WBC (0-5) /hpf Amorphous Sediment (None) /hpf Urine Bacteria (None) /hpf Urine Mucus (None) /hpf 02/17/21 Range/Units 05:40 WBC (3.8-10.6) k/uL RBC (4.30-5.90) m/uL MCV (80.0-100.0) fL Neutrophils # (1.3-7.7) k/uL Lymphocytes # (1.0-4.8) k/uL D-Dimer (<0.60) mg/L FEU ABG pH (7.35-7.45) ABG pCO2 (35-45) mmHg ABG pO2 (83-108) mmHg ABG HCO3 (21-25) mmol/L ABG Total CO2 (19-24) mmol/L ABG O2 Saturation (94-97) % Potassium (3.5-5.1) mmol/L Carbon Dioxide (22-30) mmol/L BUN (9-20) mg/dL Glucose (74-99) mg/dL POC Glucose (mg/dL) 125 H (75-99) mg/dL AST (17-59) U/L ALT (4-49) U/L Lactate Dehydrogenase (313-618) U/L Total Protein (6.3-8.2) g/dL Albumin (3.5-5.0) g/dL Procalcitonin (0.02-0.09) ng/mL Urine Protein (Negative) Urine Blood (Negative) Ur Leukocyte Esterase (Negative) Urine RBC (0-5) /hpf Urine WBC (0-5) /hpf Amorphous Sediment (None) /hpf Urine Bacteria (None) /hpf Urine Mucus (None) /hpf Microbiology - Last 24 Hours (Table) 02/16/21 15:23 Urine Culture - Preliminary Urine,Voided Assessment and Plan Plan: 1 ARDS with secondary acute hypoxemic respiratory failure, related to COVID 19 pneumonia, with onset of symptoms 14 days ago, outside the window for Remdesivir. Received tocilizumab and 1 unit of convalescent plasma. Continued to deteriorate and intubated and placed on mechanical ventilator on 02/12/2021. The patient is not doing any much progress over the past several days. Peak and static pressures are still elevated. Remains intubated on a mechanical ventilator. He remains paralyzed. His tidal volume is currently at 450 and without allowing permissive hypercapnia. He remains quite hypoxic on today's blood gases with a pO2 of 55. The blood gases SHOWING permissive hypercapnia. PH is at 7.27 with a pCO2 of 81. Chest x-ray is essentially unchanged. There is a concern for an infection knowing that the patient is having low-grade fever, the white cell count is up trending and the patient also has an elevated pro-calcitonin level. 2 Elevated inflammatory markers related to the above must slightly improving 3 Increased d-dimer of greater than 5.4, placed on Lovenox, no CT evidence of pulmonary embolism and no evidence of DVT on lower extremity Dopplers 4 Troponin leak, likely related to severe COVID 19 pneumonia with severe hypoxic respiratory failure, and cardiology is following 5 Transaminitis secondary to above 5 Former smoker, carries [id number] smoking history, currently in remission, suspect underlying COPD 6 Marijuana use 7 acute hyperkalemia, without any EKG changes, likely secondary to respiratory acidosis and permissive hypercapnia, improved 8 acute kidney injury with a creatinine of 1.5 and borderline low blood pressure. Consider cardiorenal factors noted the patient has an ejection fraction of 20-25% and the patient was being diuresis with IV Lasix. the Lasix has been discontinued and the patient is currently showing some improvement in r enal function creatinine is down to 1.3. Failed dobutamine because of increased tachycardia. 9 severe cardiomyopathy with an ejection fraction of 20-25%. The patient was diuresed yesterday and the patient developed an acute kidney injury and diuretics will placed on hold for now. He is referred to the echocardiogram that was done on 02/10/2021. Plan: Continue ventilator support No ventilator changes for today Keep sedation and paralysis Add empiric antibiotic coverage with IV cefepime 2 g every 12 hours. Chest x-ray was noted, blood gases was noted Continue dexamethasone, Lovenox, vitamin supplements Received tocilizumab and convalescent plasma check procalcitonin level blood cultures Enteral feeding for nutritional support, Monitor inflammatory markers repeat potassium level We will continue to follow make further recommendations based on his clinical status Critical care time > 30 minutes Time with Patient: Greater than 30
[2021-02-17] MEDS: ENOXAPARIN 60 MG/0.6 ML SYRINGE SQ SCH ×2 (08:57→21:32)
[2021-02-17] MEDS: FAMOTIDINE 20 MG/2 ML VIAL IV SCH ×2 (08:57→21:31)
[2021-02-17] MEDS: CHLORHEXIDINE GLUCONATE 15 ML CUP MUCOUS MEM SCH ×2 (08:57→21:33)
[2021-02-17] MEDS: DEXAMETHASONE SOD PHOSPHATE 10 MG/ML 1 ML VIAL IV SCH ×2 (08:58→21:30)
[2021-02-17] MEDS: CHOLECALCIFEROL 25 MCG (1000 IU) TABLET PO SCH (08:58)
[2021-02-17] MEDS: CEFEPIME 2 GM in SODIUM CHLORIDE 0.9% 100 ML IVPB SCH ×2 (08:58→16:54)
[2021-02-17] MEDS: METOPROLOL TARTRATE 25 MG TAB PO SCH ×2 (08:58→21:32)
[2021-02-17] MEDS: ASCORBIC ACID 500 MG TAB PO SCH (08:58)
[2021-02-17] MEDS: ZINC SULFATE 220 MG CAP PO SCH (08:58)
[2021-02-17] MEDS: ASPIRIN 81 MG PO SCH (08:58)
[2021-02-17] MEDS: SODIUM CHLORIDE 0.9% 1,000 ML IV SCH (08:59)
[2021-02-17] MEDS: CISATRACURIUM 200 MG in SODIUM CHLORIDE 0.9% 180 ML IV SCH (11:06)
[2021-02-17 11:26] LABS: Glucose,Whole Blood 140 mg/dL (75-99)
--- NOTE | 2021-02-17 11:46 | XR ---
EXAMINATION TYPE: XR chest 1V portable DATE OF EXAM: 02/17/2021 Comparison: 02/16/2021 Clinical History: 65-year-old male Tube placement Findings: ET and NG tubes satisfactory. Left subclavian CVC tip lower SVC. Heart upper limits of normal in size . Hyperinflation. Diffuse interstitial densities and more confluent lower lung airspace disease are s imilar. Impression: COPD and continued bibasilar airspace disease and background increased interstitial opacity.
[2021-02-17 15:46] LABS: ABG Base Excess 10.9 mmol/L; ABG HCO3 37 mmol/L (21-25); ABG Oxygen Saturation 86.1 % (94-97); ABG TCO2 40 mmol/L (19-24); Allen Test Performed? Yes
[2021-02-17 15:48] LABS: ABG PCO2 76 mmHg (35-45)
[2021-02-17 15:49] LABS: ABG PO2 54 mmHg (83-108)
[2021-02-17 17:16] LABS: Glucose,Whole Blood 129 mg/dL (75-99)
[2021-02-17] MEDS ORDERED: VANCOMYCIN IV PER PHARMACY 1 EACH MISC MISCELLANE PRN (18:21)
[2021-02-17] MEDS ORDERED: VANCOMYCIN 2,000 MG in SODIUM CHLORIDE 0.9% 500 ML 500 ML IVPB ONE (20:00)
--- NOTE | 2021-02-17 21:36 | P.PN ---
Subjective Progress Note Date: 02/17/21 Principal diagnosis: Acute bilateral Covid pneumonia Acute hypoxic respiratory failure secondary to above. on mechanical ventilator This is a pleasant 65 years old male with no significant past medical history who presents because of one-week history of dyspnea associated with high fever at 101.3 at home. Associated with coughing. He feels generally weak but no significant chest pain. Patient dyspnea was getting more worse and he was not feeling well so family brought him to the hospital. His symptoms started about 2 weeks Patient is poor historian and is oxygen saturation was troponin while he was on high flow nasal cannula and he has to be placed on BiPAP and sent to the ICU from emergency room Patient is ex-smoker, he quit a few months ago. Used to smoke 2 packs per day. Patient is tachypneic with a breathing rate of 30, he is saturating any to on 60 L/m of oxygen via high flow cannula. A febrile. CBC, and BMP are unremarkable. Liver enzymes slightly elevated with AST 100 and ALT 86 and normal bilirubin of 0.7. D-dimer is elevated at 5.7. Elevated troponin 0.03, 0.06, 0.06 Chronic varus detected CTA of the chest: No evidence of PE. Extensive bilateral pneumonia, emphysema EKG showing sinus tachycardia at 107 with the bundle branch block and QTC 523 Chest x-ray: Bilateral infiltrates Ultrasound of the lower extremities is negative for DVT on both sides In ED he was started on Lovenox, normal saline at 75 mL/h, one-time dose of tocilizumab per pulmonary team , vitamin C, zinc and vitamin D. Patient has been evaluated by pulmonary service, he was started on BiPAP and admitted to the ICU 02/11/2021 Patient remains in the ICU, monitored closely for his hypoxia, he needs BiPAP most of the time of continuously. Has increased inflammatory markers with ferritin 1519, LDH 2339 and selective 1438. D-dimer is elevated at 5.7 and he is placed on therapeutic dose of Lovenox. Chest x-ray showing bilateral infiltrate Remains on dexamethasone and vitamin cocktail for Covid, he also received 1 dose of tocilizumab and convalescent plasma Also he is on metoprolol and Lovenox 50 mg twice a day 02/12/2021 Patient seen and examined in the ICU for Covid pneumonia, this morning his respiratory status deteriorated and he had to be intubated and placed on mechanical ventilation, also blood pressure was troponin even with boluses of normal saline and he has to be placed on Levophed at 0.05. Vent setting showing PEEP 10, respiratory rate 30, dental: 450 and FiO2 is 100%. Dictated hydrogenase almost doubled to 4124 and C-reactive protein is high at 20. D-dimer more than 34. Liver enzymes slightly elevated. She remains on metoprolol 25 mg, Lovenox 50 mg dexamethasone, vitamin C, D and zinc. Also he is started on small dose of Levophed. And metoprolol 02/14/2021 Patient is currently in MICU and remains intubated. Patient was intubated on 02/12/2021. Currently on mechanical ventilator and is on sedation. Chest x-ray showed COPD with borderline heart size. Diffuse interstitial opacities and more confluent bibasilar airspace disease, right greater than left, (without significant change. Laboratory data showed D-dimer 24.99, potassium 5.2, bicarb 34 BUN 24 creatinine 0.79 calcium 8.1 ferritin 1008.5 AST 91 ALT 208 LDH 2000 CPK 194, CRP 14.0. Patient is being continued on dexamethasone 6 mg IV daily, Lovenox 50 mg subcu twice daily and multivitamins. Pulmonary is on board. Patient is tachypneic. Afebrile. 02/15/2021 Patient is currently in MICU remains intubated and also on sedation and paralyzed. Assist control 500, respiratory 32 and PEEP of 17 and FiO2 30%. Chest x-ray showed mild improvement of diffuse increased lung markings. Patient is tachypneic. Blood pressure is stable. Patient is afebrile. Laboratory data showed diabetes 11.7 hemoglobin 16.1 MCV 101.1 and platelets 178 ABG showed pH of 7.3 PCO2 73 and PO2 53 Sodium 137 potassium 5.6 bicarb is 34 BUN 34 and creatinine 0.9 AST is 57 ALT from 58 LDH 1693 CRP 10.3 Patient is on enteral feeding. 02/16/2021 Patient is currently MICU on mechanical L also on sedation and paralyzed. Currently on assist control 100 PEEP of 17 and FiO2 50%. ABG showed pH of 7.31, PCO2 68 and PO2 60 Chest x-ray showed bibasilar infiltrates. Findings are improving. Laboratory showed WBC 12.7 hemoglobin 15.3 and platelets 167 D-dimer is 9.64 sodium 137 potassium 5.1 bicarb is 34 BUN 59 creatinine 1.52 blood sugar is 150 AST 61 ALT 144 LDH 1363 total protein 5.9 albumin 3.1 and procalcitonin 1.25 Patient is being continued on dexamethasone, Lovenox twice daily, multivitamins. Critical care team is on board. 02/17/2021 Patient currently in the MICU and remains on mechanical ventilator. Sedated and paralyzed. Assist-control 450 respiratory rate 32 PEEP of 17 and FiO2 50%. Chest x-ray showed COPD and continued bibasilar airspace disease and background increase in interstitial opacity. Laboratory data showed WBC 13.6 hemoglobin 14.1 and platelets 162 D-dimer is 5.41 pH of 7.27, PCO2 82 and PO2 56 Sodium 138 potassium 5.5 BUN 59 and creatinine 1.21 AST 65 ALT 143 LDH 1230 CRP 6.5 and pro calcitonin level of 0.73 Patient was started on cefepime and vancomycin. Current medications reviewed. Objective - Vital Signs Vital signs: Vital Signs Temp 99.4 F 02/17/21 12:00 Pulse 104 H 02/17/21 13:00 Resp 32 H 02/17/21 13:00 BP 151/68 02/17/21 13:00 Pulse Ox 93 L 02/17/21 13:00 Intake & Output 02/16/21 02/17/21 02/17/21 18:59 06:59 18:59 Intake Total 7834.326 5621.744 673.571 Output Total 835 530 655 Balance 501.908 509.744 18.571 Weight 104.9 kg 104.9 kg Intake: IV 256 276 184 .9NS 220 240 160 Pressure bag 36 36 24 Intake, IV Titration 606.908 322.744 273.571 Amount Cefepime 2 gm In Sodium 100 Chloride 0.9% 100 ml @ 25 mls/hr IVPB Q8HR [facility] Rx# :[id number] Cisatracurium 200 mg In 200 122.744 172.889 Sodium Chloride 0.9% 180 ml @ 1 MCG/KG/MIN 5.987 mls/hr IV .Q24H [facility] Rx#: [id number] Norepinephrine 8 mg In 6.908 Sodium Chloride 0.9% 250 ml @ 0.05 MCG/KG/MIN 10. 362 mls/hr IV .Q24H [facility] Rx#:[id number] propofoL 1,000 mg In 400 200 0.682 Empty Bag 1 bag @ Titrate IV .Q0M [facility] Rx#: [id number] Tube Feeding 324 351 216 Other 150 90 Output: Urine 835 530 655 Other: Voiding Method Indwelling Catheter Indwelling Catheter Indwelling Catheter ABP, PAP, CO, CI - Last Documented Arterial Blood Pressure 127/52 - Exam - Exam -GENERAL: The patient is intubated and sedated . HEENT: Pupils are round and equally reacting to light. No scleral icterus. No conjunctival pallor. Normocephalic, atraumatic. No thyromegaly. CARDIOVASCULAR: S1 and S2 present. No murmurs, rubs, or gallops. PULMONARY: Chest is clear to auscultation, no wheezing or crackles. ABDOMEN: Soft, nontender, nondistended, normoactive bowel sounds. No palpable organomegaly. MUSCULOSKELETAL: No joint swelling or deformity. EXTREMITIES: No cyanosis, clubbing, or pedal edema. NEUROLOGICAL: Gross neurological examination did not reveal any focal deficits. SKIN: No rashes. no petechiae. - Labs CBC & Chem 7: 02/17/21 05:00 02/17/21 05:00 Labs: Abnormal Lab Results - Last 24 Hours (Table) 02/16/21 02/16/21 02/16/21 Range/Units 04:30 15:23 17:33 WBC (3.8-10.6) k/uL RBC (4.30-5.90) m/uL MCV (80.0-100.0) fL Neutrophils # (1.3-7.7) k/uL Lymphocytes # (1.0-4.8) k/uL D-Dimer (<0.60) mg/L FEU ABG pH (7.35-7.45) ABG pCO2 (35-45) mmHg ABG pO2 (83-108) mmHg ABG HCO3 (21-25) mmol/L ABG Total CO2 (19-24) mmol/L ABG O2 Saturation (94-97) % Potassium (3.5-5.1) mmol/L Carbon Dioxide (22-30) mmol/L BUN (9-20) mg/dL Glucose (74-99) mg/dL POC Glucose (mg/dL) 134 H (75-99) mg/dL AST (17-59) U/L ALT (4-49) U/L Lactate Dehydrogenase (313-618) U/L Total Protein (6.3-8.2) g/dL Albumin (3.5-5.0) g/dL Procalcitonin 1.25 H (0.02-0.09) ng/mL Urine Protein 1+ H (Negative) Urine Blood Trace H (Negative) Ur Leukocyte Esterase Small H (Negative) Urine RBC 25 H (0-5) /hpf Urine WBC 11 H (0-5) /hpf Amorphous Sediment Rare H (None) /hpf Urine Bacteria Many H (None) /hpf Urine Mucus Rare H (None) /hpf 02/16/21 02/17/21 02/17/21 Range/Units 23:49 05:00 05:00 WBC 13.6 H (3.8-10.6) k/uL RBC 4.23 L (4.30-5.90) m/uL MCV 101.8 H (80.0-100.0) fL Neutrophils # 11.8 H (1.3-7.7) k/uL Lymphocytes # 0.9 L (1.0-4.8) k/uL D-Dimer 5.41 H (<0.60) mg/L FEU ABG pH (7.35-7.45) ABG pCO2 (35-45) mmHg ABG pO2 (83-108) mmHg ABG HCO3 (21-25) mmol/L ABG Total CO2 (19-24) mmol/L ABG O2 Saturation (94-97) % Potassium (3.5-5.1) mmol/L Carbon Dioxide (22-30) mmol/L BUN (9-20) mg/dL Glucose (74-99) mg/dL POC Glucose (mg/dL) 154 H (75-99) mg/dL AST (17-59) U/L ALT (4-49) U/L Lactate Dehydrogenase (313-618) U/L Total Protein (6.3-8.2) g/dL Albumin (3.5-5.0) g/dL Procalcitonin (0.02-0.09) ng/mL Urine Protein (Negative) Urine Blood (Negative) Ur Leukocyte Esterase (Negative) Urine RBC (0-5) /hpf Urine WBC (0-5) /hpf Amorphous Sediment (None) /hpf Urine Bacteria (None) /hpf Urine Mucus (None) /hpf 02/17/21 02/17/21 02/17/21 Range/Units 05:00 05:02 05:40 WBC (3.8-10.6) k/uL RBC (4.30-5.90) m/uL MCV (80.0-100.0) fL Neutrophils # (1.3-7.7) k/uL Lymphocytes # (1.0-4.8) k/uL D-Dimer (<0.60) mg/L FEU ABG pH 7.27 L (7.35-7.45) ABG pCO2 82 H* (35-45) mmHg ABG pO2 56 L* (83-108) mmHg ABG HCO3 38 H (21-25) mmol/L ABG Total CO2 40 H (19-24) mmol/L ABG O2 Saturation 86.6 L (94-97) % Potassium 5.5 H (3.5-5.1) mmol/L Carbon Dioxide 35 H (22-30) mmol/L BUN 59 H (9-20) mg/dL Glucose 133 H (74-99) mg/dL POC Glucose (mg/dL) 125 H (75-99) mg/dL AST 65 H (17-59) U/L ALT 143 H (4-49) U/L Lactate Dehydrogenase 1230 H (313-618) U/L Total Protein 6.0 L (6.3-8.2) g/dL Albumin 3.3 L (3.5-5.0) g/dL Procalcitonin (0.02-0.09) ng/mL Urine Protein (Negative) Urine Blood (Negative) Ur Leukocyte Esterase (Negative) Urine RBC (0-5) /hpf Urine WBC (0-5) /hpf Amorphous Sediment (None) /hpf Urine Bacteria (None) /hpf Urine Mucus (None) /hpf 02/17/21 Range/Units 11:24 WBC (3.8-10.6) k/uL RBC (4.30-5.90) m/uL MCV (80.0-100.0) fL Neutrophils # (1.3-7.7) k/uL Lymphocytes # (1.0-4.8) k/uL D-Dimer (<0.60) mg/L FEU ABG pH (7.35-7.45) ABG pCO2 (35-45) mmHg ABG pO2 (83-108) mmHg ABG HCO3 (21-25) mmol/L ABG Total CO2 (19-24) mmol/L ABG O2 Saturation (94-97) % Potassium (3.5-5.1) mmol/L Carbon Dioxide (22-30) mmol/L BUN (9-20) mg/dL Glucose (74-99) mg/dL POC Glucose (mg/dL) 140 H (75-99) mg/dL AST (17-59) U/L ALT (4-49) U/L Lactate Dehydrogenase (313-618) U/L Total Protein (6.3-8.2) g/dL Albumin (3.5-5.0) g/dL Procalcitonin (0.02-0.09) ng/mL Urine Protein (Negative) Urine Blood (Negative) Ur Leukocyte Esterase (Negative) Urine RBC (0-5) /hpf Urine WBC (0-5) /hpf Amorphous Sediment (None) /hpf Urine Bacteria (None) /hpf Urine Mucus (None) /hpf Microbiology - Last 24 Hours (Table) 02/16/21 08:15 Blood Culture - Final Blood 02/16/21 08:05 Blood Culture - Preliminary Blood No Growth after 24 hours 02/16/21 15:23 Urine Culture - Preliminary Urine,Voided Assessment and Plan Assessment: Acute bilateral Covid pneumonia ARDS / Acute hypoxic respiratory failure secondary to above. on mechanical ventilator Elevated inflammatory markers Severe cardiomyopathy EF: 20-25% Elevated troponin, secondary to Covid infection. Elevated d-dimer, with no evidence of PE on CTA of the chest Mildly elevated liver enzymes, secondary to covid Elevated lactic acid, came back to normal Emphysema Plan: This is a pleasant 65 years old male who presents with Covid. Non-STEMI Patient received Tocilizumab and 1 unit of convalescent plasma. Patient does not make much improvement for the last few days. Continue with vitamin C, vitamin D and zinc. Continue with steroids and lovenox BID Due to elevated D-dimer level.. Pulmonar y and cardiology is following. Labs and medication were reviewed.. Continue with symptomatic treatment. Resume home medication. Monitor lytes and vitals. DVT and GI prophylaxis. Further recommendations depends on the clinical course of the patient DVT prophylaxis: Subcutaneous Lovenox GI Prophylaxis: Pepcid PT/OT: Pending Prognosis is guarded Time with Patient: Greater than 30
[2021-02-17 23:37] LABS: Glucose,Whole Blood 158 mg/dL (75-99)
[2021-02-17] MEDS: NOREPINEPHRINE 8 MG in SODIUM CHLORIDE 0.9% 250 ML IV SCH (23:43)
[2021-02-18] MEDS: CEFEPIME 2 GM in SODIUM CHLORIDE 0.9% 100 ML IVPB SCH ×3 (00:14→15:31)
[2021-02-18 04:40] LABS: Basophils % (A) 0 %; Eosinophils # (A) 0.1 k/uL (0-0.7); Eosinophils % (A) 1 %; HCT 47.7 % (39.0-53.0); HGB 14.4 gm/dL (13.0-17.5); Hypochromasia Marked; Lymphocytes # (A) 0.8 k/uL (1.0-4.8); Lymphocytes % (A) 6 %; MCH 31.4 pg (25.0-35.0); MCHC 30.3 g/dL (31.0-37.0); MCV 103.9 fL (80.0-100.0); Macrocytosis Moderate; Mean Platelet Volume 8.9; Monocytes # (A) 0.5 k/uL (0-1.0); Monocytes % (A) 4 %; Neutrophils # (A) 10.4 k/uL (1.3-7.7); Neutrophils % (A) 88 %; Platelet Count 182 k/uL (150-450); RBC 4.59 m/uL (4.30-5.90); RDW 15.6 % (11.5-15.5); WBC 11.8 k/uL (3.8-10.6)
[2021-02-18 05:05] LABS: ABG PH 7.28 (7.35-7.45); Allen Test Performed? Yes
[2021-02-18 05:06] LABS: ABG HCO3 37 mmol/L (21-25); ABG PCO2 79 mmHg (35-45); ABG PO2 53 mmHg (83-108)
[2021-02-18 05:07] LABS: ABG Base Excess 10.2 mmol/L; ABG TCO2 39 mmol/L (19-24)
[2021-02-18 05:44] LABS: Albumin 3.1 g/dL (3.5-5.0); C Reactive Protein 1.1 mg/dL (<1.0); Calcium 8.9 mg/dL (8.4-10.2); Potassium 5.6 mmol/L (3.5-5.1); Total Bilirubin 0.5 mg/dL (0.2-1.3); Total Protein 5.8 g/dL (6.3-8.2)
[2021-02-18 05:48] LABS: Glucose,Whole Blood 132 mg/dL (75-99)
[2021-02-18] MEDS: CISATRACURIUM 200 MG in SODIUM CHLORIDE 0.9% 180 ML IV SCH ×2 (06:41→19:30)
--- NOTE | 2021-02-18 07:06 | XR ---
EXAMINATION TYPE: XR chest 1V portable DATE OF EXAM: 02/18/2021 CLINICAL HISTORY: Difficulty breathing progress study. TECHNIQUE: Single AP portable semiupright view of the chest is obtained. COMPARISON: Chest x-ray from one day earlier and older studies FINDINGS: Stable endotracheal and orogastric tubes. Stable left subclavian central venous catheter. Persistent reticulonodular increased opacities more confluent in appearance in the lower lungs. Cardi ac silhouette size is stable and mildly enlarged. Osseous structures are intact. IMPRESSION: Persistent bilateral multifocal reticulonodular opacities consistent with covid-19 infect ion. No significant change from most recent x-ray.
--- NOTE | 2021-02-18 07:16 | P.PN ---
Subjective Progress Note Date: 02/18/21 02/13/2021, the patient is being seen for follow-up in intensive care unit. This is a 65-year-old -[place] male patient was admitted with Covid 19 related pneumonia and the patient was initially given high flow oxygen and later on BiPAP and because of ongoing failure, the patient was intubated and placed on a mechanical ventilator. He is a chronic smoker. He also smokes marijuana. The patient was intubated yesterday on 02/12/2021 because of respiratory failure related to Covid 19 related pneumonia. The patient is currently on assist control mode of ventilation. The patient is a rate of 36 with FiO2 of 9 90% 0% and a PEEP of 15 and tidal volume of 500. Your pressures around 41 metastatic pressure of 39. The patient remains sedated on propofol running at 60 mcg/kg per minute and the patient is also paralyzed at 2 mcg/kg per minute. Post intubation, the patient requires also pressors and currently norepinephrine is running at 0.02mcg/kg/per minute. The patient is mechanical ventilator. The patient normal saline at the rate of 75 mL an hour. Chest x-ray showing diffuse but the pulmonary patchy infiltrates. ET tube is in a good location. Note that the patient to telemetry markers from yesterday were quite elevated. LDH level was 4124 and the CRP was 20.5. The patient is currently on Decadron. The patient is also on Lovenox and the patient also received convalescent plasma and Tocilizumab. The LFTs are slightly elevated and the patient has some mild transaminitis related to COVID 19. Based on elevation of the d-dimer, the patient is being given 50 mg of Lovenox which is a half a milligram per KG every 12 hours. The blood gases from today showing a pH of 7.23 with a pCO2 of 63 and pO2 of 109. This was done and FiO2 of 90%. Blood work from today shows a d- dimer of more than 34, potassium level is down to 6.2 and the patient will need obviously D50 insulin along with 2 A of sodium bicarb. This hyperkalemia is related to acidosis. The patient's liver function tests are also elevated as the patient has mild transaminitis, ALT is 229, AST 307, LDH is 2716, pro calcitonin is at 0.14, CRP was 17.8. On 02/14/2021, I'm seeing the patient for a follow-up. This is a case of Covid 19 related pneumonia with secondary hypoxic respiratory failure and the patient has been intubated on 02/12/2021 and the patient is currently being seen in follow-up. On today's evaluation, the patient is on propofol which is running at 75 mg/kg per minute and the patient is also on Nimbex at 3 mcg/kg per minute. He is was sedated insipidus with the mechanical ventilator which is currently running at a tidal volume of 500 with a rate of 36 and it PEEP 15 and an FiO2 of 60%. The patient's blood gases from today showed a pH of 7.37 with a pCO2 of 64 and pO2 of 62 and this was on FiO2 of 60%. His chest x-ray from today is showing diffuse bilateral pulmonary infiltrates, essentially unchanged compared to yesterday and ET tube is in a good location. The patient's inflammatory markers on today's evaluation remain elevated although they're improving. The patient's LDH level is down to 2000 and his CRP level is down to 14 and the d- dimer is still elevated at 24 although is improving. The patient is currently on Decadron 6 mg IV every 24 hours. He is also on Lovenox 50 mg subcu 3 times a day. He is also on a bicarb drip this was added yesterday as the patient was having significant acidosis which was mainly respiratory acidosis and secondary hyperkalemia. Potassium level is down to 5.2 and a pH currently is at 7.37 and as such the bicarb infusion can be discontinued. Creatinine is down to 0.7 and his also recovered from his acute kidney injury. He is on enteral feeding for nutritional support and currently this is running at 27 mL an hour of Nepro. The urine output is adequate and the patient's net fluid balance is +2.1 L over the past 24 hours. His weight is currently up to 101 kg. On today's evaluation for 2020, the patient remains sedated and paralyzed. The patient is on propofol at 75 mcg/kg per minute and the patient is also on Nimbex at 2 mcg/kg/m. The patient is calm and comfortable and successful mechanical ventilator which is running currently with tidal volume of 500, rate of 32, PEEP of 17 and an FiO2 of 50%. The blood is from today showed a pH of 7.3 with a pCO2 of 73 and pO2 of 52. This was done and a PEEP of 17. The chest x-ray is unchanged and there is diffuse bilateral pulmonary infiltrates right more than left lower lung more than the upper lobes. ET tube is high in the trachea and it needs to be pushed then by another centimeter. Orogastric tube is in a good location. The patient otherwise is he was dynamically stable. He remains on Decadron. He remains on Lovenox 50 mg subcutaneous twice a day. He is on IV fluids and currently is receiving normal saline at the rate of 20 mL an hour. Fluid balance over the past 24 hours has been +2.2 L. The patient has been persistently in a positive fluid balance. As for the rest of the blood work, the patient's d-dimer is at 14 which is lower, his LDH is 1693, lower and the CRP is 10.3, lower. As for the rest of the electrolytes, his potassium level is at 5.6 and a serum bicarb is 34 with a BUN of 34 and a creatinine of 0.9. He is on enteral feeding for nutritional support and he is currently receiving Nepro at 27 mL an hour. No other major events overnight. I did do some ventilator changes on the patient y . yesterday which failed. I tried to wean off his feet and it failed and the patient became hypoxic and currently is a 17 of PEEP. he has a peak airway pressure in the setting of a pressure of 36 and 34 respectively On 02/16/2021, the patient is being seen in follow-up in the intensive care unit. The patient remains sedated and paralyzed. On today's evaluation, propofol is running at 70 mcg/kg per minute and the patient is also paralyzed with Nimbex running at 2 mcg/kg per minute. He is essentially the same as yesterday. Meanwhile, the patient remains on a mechanical ventilator. The patient is on the volumes second assist-control mode with a tidal volume of 500, rate of 32, FiO2 of 50% and a PEEP of 17. Again, these are the same ventilator settings as of yesterday. PH is at 7.31 with a pCO2 of 68 and pO2 of 60. Chest x-ray from today is not showing any major interval change. Orotracheal tube is in place. NG tube in place. There are bilateral pulmonary infiltrates and the findings are typical of ARDS. Meanwhile, the peak airway pressures at 36, static pressures are 34. These are the same numbers as of yesterday. The patient is a d-dimer of 9.6 with CRP of 7.6 and a LDH level of 1363. Currently is running a lower blood pressure with a systolic in the 90s. Lopressor has been held. Cardiac rhythm is sinus. IV fluids are running at disease an hour and the patient is not fluid balance is around 2.2 L positive over the past 24 hours. The patient is having a low-grade fever. His T-max was 100.2. Note that he is not covered with any antibiotics at this point in time. White cell count of 12.7. This of the blood work and electrolytes showed development of an acute kidney injury. Creatinine is up to 1.5 on today's evaluation and the rest of the blood work shows sodium 137, potassium of 5.1, LFTs are also showing some mild component of transaminitis. He is on enteral feeding for nutritional support and the patient is currently receiving Nepro 25 mL an hour. His urine o utput is in order of 40 cc hr 2020, the patient is not doing much in progress. His condition was stable yesterday and he continues to be sedated and paralyzed on today's evaluation where propofol is running at 65 mcg/kg per minute and the patient is also paralyzed on Nimbex at 2 mcg/kg per minute. Remains on the same ventilator setting with a tidal volume of 450, rate of 32, PEEP of 17 with a FiO2 of 50%. Chest x-ray findings and essentially unchanged over the past several days. The blood gases from today is showing a pH of 7.27 with a pCO2 of 81 and pO2 of 55. The peak airway pressure is around 35 and this static airway pressure is 33. The patient's hemodynamics is stable. He developed an acute kidney injury yesterday related to hypotension and he was given IV fluids and the creatinine is down to 1.2. His net fluid balance on today's evaluation is in the order of +2.2 L 4 02/15/2021 and +764 for 2020. He is currently on no pressors. Note that the patient had some fever since yesterday. The patient was pancultured. There is also still pending for now. No antibiotics was provided. The pro- calcitonin level came back quite elevated. The level is at 1.25. Meanwhile, he remains stable hemodynamically and his renal function is improving and the creatinine is down to 1.3. He is producing adequate amount of urine output for now. He is still running a low-grade fever White count at 13.6, inflammatory markers showed a d-dimer of 5.4 with a LDH level of 1230 and the CRP is at 6. He remains on steroids and the patient is receiving Decadron 6 mg IV every 12 hours. He did have an echocardiogram that showed impaired LV function with an ejection fraction of around 20-25%. He was trialed on dobutamine yesterday to augment his cardiac output and improve the renal failure. He did become tachycardic with dobutamine and this was discontinued. No other processes was given. He remains on enteral feeding for nutritional support and he is receiving Nepro at the rate of 27 mL an hour. Otherwise, no other major events occurring overnight. 02/18/2021, we are following this patient in the intensive care unit for a follow-up. Still sedated and paralyzed. An attempt to do the patient had paralytic holiday yesterday failed as the patient decompensated and the patient became hypoxic. Based on that, the patient placed back on a combination of propofol was still running at 65 mg/kg/m the Nimbex is running at 2 mcg/kg/h. As such, the patient remains sedated and paralyzed. Still on a mechanical ventilator. Essentially the same ventilator settings. Tidal volumes of 450 with a rate of 32 and a PEEP currently is at 17 with an FiO2 of 50%. The peak and static pressures remain elevated with a peak airway pressure of 34 ascending aortic pressure of 32. Blood gases from today showed a pH of 7.28 with a pCO2 of 78 and pO2 of 53. As such, oxygenation remains borderline and the patient is still undergoing permissive hypercapnia. Chest x-ray findings from today are essentially stable. Fluid balance was slightly positive and the patient was not receiving any pressors. In terms of inflammatory markers, the patient has an LDH of 1169 and a CRP of 1.1 and there is a slight rise in the creatinine which is up to 1.32. Note that his renal function continues to fluctuate. At one point he developed an acute kidney injury with a creatinine of 1.5. Otherwise, his white cell count is at 11.8 and the patient continues to have a lymphopenia. In terms of therapy, the patient remains on Decadron 6 mg IV twice a day. He remains on Lovenox 50 mg subcu every 12 hours. As mentioned earlier, he was diagnosed also having a cardiomyopathy with an ejection fraction of 20-25%. Enterofeeding is still with Nepro. The current rate is at 27 mL an hour and the patient is able to tolerate enteral feeding without any major issues. No diarrhea for now. fever. The urine culture that was done as part of a septic workup showed gram-negative bacillus and the patient is currently on IV cefepime. He was also given a dose of vancomycin for gram-positive cocci in his blood and is do not to be a coagulase-negative staph. His pro-calcitonin level was at 1.25 is currently coming down to 0.73 and essentially is improving. Still running a low-grade fever with a T-max of 100.4. Objective - Vital Signs Vital signs: Vital Signs Temp 99.8 F H 02/18/21 04:00 Pulse 105 H 02/18/21 06:00 Resp 32 H 02/18/21 06:00 BP 144/64 02/18/21 06:00 Pulse Ox 87 L 02/18/21 06:00 Intake & Output 02/17/21 02/18/21 02/18/21 18:59 06:59 18:59 Intake Total 9489.910 0139.781 Output Total 1030 825 Balance 36.262 185.781 Weight 104.9 kg 106.1 kg Intake: IV 299 140 .9NS 209 110 Pressure bag 90 30 Intake, IV Titration 416.262 513.781 Amount Cefepime 2 gm In Sodium 100 Chloride 0.9% 100 ml @ 25 mls/hr IVPB Q8HR [facility] Rx# :[id number] Cisatracurium 200 mg In 214.898 141.505 Sodium Chloride 0.9% 180 ml @ 1 MCG/KG/MIN 5.987 mls/hr IV .Q24H [facility]IO Rx#: [id number] propofoL 1,000 mg In 101.364 372.276 Empty Bag 1 bag @ Titrate IV .Q0M MARIO Rx#: [id number] Tube Feeding 351 297 Other 60 Output: Urine 1030 825 Other: Voiding Method Indwelling Catheter Indwelling Catheter ABP, PAP, CO, CI - Last Documented Arterial Blood Pressure 111/48 - Exam GENERAL EXAM: Intubated, sedated, paralyzed 65-year-old male, currently on the mechanical ventilator , comfortable in no apparent distress. HEAD: Normocephalic/atraumatic. EYES: Fish reaction of pupils, equal size. Conjunctiva pink, sclera white. NOSE: Clear with pink turbinates. THROAT: Oral endotracheal and gastric tube secured in place. No erythema or exudates. NECK: No masses, no JVD, no thyroid enlargement, no adenopathy. CHEST: No chest wall deformity. Symmetrical expansion. LUNGS: Equal air entry with diffuse bibasilar crackles CVS: Regular rate and rhythm, normal S1 and S2, no gallops, no murmurs, no rubs ABDOMEN: Soft, nontender. No hepatosplenomegaly, normal bowel sounds, no guarding or rigidity. EXTREMITIES: No clubbing, no edema, no cyanosis, 2+ pulses and upper and lower extremities. MUSCULOSKELETAL: Muscle strength and tone normal. SPINE: No scoliosis or deformity SKIN: No rashes CENTRAL NERVOUS SYSTEM: Sedated, paralyzed, tone is normal in all 4 extremities. PSYCHIATRIC: Sedated, paralyzed - Labs CBC & Chem 7: 02/18/21 04:08 02/18/21 04:08 Labs: Abnormal Lab Results - Last 24 Hours (Table) 02/17/21 02/17/21 02/17/21 Range/Units 05:00 11:24 15:43 WBC (3.8-10.6) k/uL MCV (80.0-100.0) fL MCHC (31.0-37.0) g/dL RDW (11.5-15.5) % Neutrophils # (1.3-7.7) k/uL Lymphocytes # (1.0-4.8) k/uL ABG pH 7.30 L (7.35-7.45) ABG pCO2 76 H* (35-45) mmHg ABG pO2 54 L* (83-108) mmHg ABG HCO3 37 H (21-25) mmol/L ABG Total CO2 40 H (19-24) mmol/L ABG O2 Saturation 86.1 L (94-97) % Potassium (3.5-5.1) mmol/L Carbon Dioxide (22-30) mmol/L BUN (9-20) mg/dL Creatinine (0.66-1.25) mg/dL Glucose (74-99) mg/dL POC Glucose (mg/dL) 140 H (75-99) mg/dL ALT (4-49) U/L Lactate Dehydrogenase (313-618) U/L C-Reactive Protein (<1.0) mg/dL Total Protein (6.3-8.2) g/dL Albumin (3.5-5.0) g/dL Procalcitonin 0.73 H (0.02-0.09) ng/mL 02/17/21 02/17/21 02/18/21 Range/Units 17:14 23:35 04:08 WBC (3.8-10.6) k/uL MCV (80.0-100.0) fL MCHC (31.0-37.0) g/dL RDW (11.5-15.5) % Neutrophils # (1.3-7.7) k/uL Lymphocytes # (1.0-4.8) k/uL ABG pH (7.35-7.45) ABG pCO2 (35-45) mmHg ABG pO2 (83-108) mmHg ABG HCO3 (21-25) mmol/L ABG Total CO2 (19-24) mmol/L ABG O2 Saturation (94-97) % Potassium 5.6 H (3.5-5.1) mmol/L Carbon Dioxide 36 H (22-30) mmol/L BUN 56 H (9-20) mg/dL Creatinine 1.32 H (0.66-1.25) mg/dL Glucose 148 H (74-99) mg/dL POC Glucose (mg/dL) 129 H 158 H (75-99) mg/dL ALT 137 H (4-49) U/L Lactate Dehydrogenase 1169 H (313-618) U/L C-Reactive Protein 1.1 H (<1.0) mg/dL Total Protein 5.8 L (6.3-8.2) g/dL Albumin 3.1 L (3.5-5.0) g/dL Procalcitonin (0.02-0.09) ng/mL 02/18/21 02/18/21 02/18/21 Range/Units 04:08 04:15 05:46 WBC 11.8 H (3.8-10.6) k/uL MCV 103.9 H (80.0-100.0) fL MCHC 30.3 L (31.0-37.0) g/dL RDW 15.6 H (11.5-15.5) % Neutrophils # 10.4 H (1.3-7.7) k/uL Lymphocytes # 0.8 L (1.0-4.8) k/uL ABG pH 7.28 L (7.35-7.45) ABG pCO2 79 H* (35-45) mmHg ABG pO2 53 L* (83-108) mmHg ABG HCO3 37 H (21-25) mmol/L ABG Total CO2 39 H (19-24) mmol/L ABG O2 Saturation 85.0 L (94-97) % Potassium (3.5-5.1) mmol/L Carbon Dioxide (22-30) mmol/L BUN (9-20) mg/dL Creatinine (0.66-1.25) mg/dL Glucose (74-99) mg/dL POC Glucose (mg/dL) 132 H (75-99) mg/dL ALT (4-49) U/L Lactate Dehydrogenase (313-618) U/L C-Reactive Protein (<1.0) mg/dL Total Protein (6.3-8.2) g/dL Albumin (3.5-5.0) g/dL Procalcitonin (0.02-0.09) ng/mL Microbiology - Last 24 Hours (Table) 02/16/21 17:33 Gram Stain - Preliminary Sputum Sputum Culture - Preliminary 02/16/21 15:23 Urine Culture - Preliminary Urine,Voided Gram Neg Bacilli 02/16/21 08:15 Blood Culture Gram Stain - Preliminary Blood Blood Culture - Preliminary Coagulase Negative Staph 02/16/21 08:15 Blood Culture - Final Blood 02/16/21 08:05 Blood Culture - Preliminary Blood No Growth after 24 hours Assessment and Plan Plan: 1 ARDS with secondary acute hypoxemic respiratory failure, related to COVID 19 pneumonia, with onset of symptoms 14 days ago, outside the window for Remd esivir. Received tocilizumab and 1 unit of convalescent plasma. Continued to deteriorate and intubated and placed on mechanical ventilator on 02/12/2021. The patient continues to have elevated peak and static pressure. His PF ratio is still low. The patient continues to have permissive hypercapnia as on his blood gas today he is still hypoxic and the chest x-ray is not showing any interval improvement of progression. As such, his been essentially unchanged over the past several days. Meanwhile, we cultured gram-negative bacillus in his urine and this is being treated. There is also coagulase-negative the blood, likely contaminant. 2 Elevated inflammatory markers related to the above must slightly improving 3 gram-negative UTI along with elevated. The level which is improving. Patient is currently on IV cefepime. Vancomycin was also added and the blood cultures do not to be a coagulase-negative staph. 4 Troponin leak, likely related to severe COVID 19 pneumonia with severe hypoxic respiratory failure, and cardiology is following 5 Transaminitis secondary to above, improving 5 Former smoker, carries [id number] smoking history, currently in remission, suspect underlying COPD 6 Marijuana use 8 acute kidney injury with a creatinine of 1.5 , stable and the creatinine is down to 1.3 9 severe cardiomyopathy with an ejection fraction of 20-25%. The patient was diuresed yesterday and the patient developed an acute kidney injury and diuretics will placed on hold for now. He is referred to the echocardiogram that was done on 02/10/2021. Plan: Continue ventilator support, he is advised of the 70% Keep sedation We will however the patient paralytic holiday on a daily basis antibiotic coverage with IV cefepime 2 g every 12 hours. Stop vancomycin Chest x-ray was noted, blood gases was noted Continue dexamethasone, Lovenox, vitamin supplements Received tocilizumab and convalescent plasma check procalcitonin level and another d-dimer blood cultures Enteral feeding for nutritional support, Monitor inflammatory markers We will continue to follow make further recommendations based on his clinical status Critical care time > 30 minutes Time with Patient: Greater than 30
[2021-02-18] MEDS ORDERED: VANCOMYCIN 1,750 MG in SODIUM CHLORIDE 0.9% 500 ML 500 ML IVPB SCH (08:00)
[2021-02-18] MEDS: FAMOTIDINE 20 MG/2 ML VIAL IV SCH ×2 (08:23→20:51)
[2021-02-18] MEDS: CHOLECALCIFEROL 25 MCG (1000 IU) TABLET PO SCH (08:24)
[2021-02-18] MEDS: CHLORHEXIDINE GLUCONATE 15 ML CUP MUCOUS MEM SCH ×2 (08:24→20:51)
[2021-02-18] MEDS: ASCORBIC ACID 500 MG TAB PO SCH (08:24)
[2021-02-18] MEDS: DEXAMETHASONE SOD PHOSPHATE 10 MG/ML 1 ML VIAL IV SCH ×2 (08:24→20:51)
[2021-02-18] MEDS: ENOXAPARIN 60 MG/0.6 ML SYRINGE SQ SCH ×2 (08:24→20:52)
[2021-02-18] MEDS: ASPIRIN 81 MG PO SCH (08:24)
[2021-02-18] MEDS: METOPROLOL TARTRATE 25 MG TAB PO SCH ×2 (08:25→20:51)
[2021-02-18] MEDS: ZINC SULFATE 220 MG CAP PO SCH (08:25)
[2021-02-18] MEDS: SODIUM CHLORIDE 0.9% 1,000 ML IV SCH (12:40)
[2021-02-18 17:39] LABS: Glucose,Whole Blood 143 mg/dL (75-99)
[2021-02-18 23:55] LABS: Glucose,Whole Blood 176 mg/dL (75-99)
[2021-02-18] MEDS: NOREPINEPHRINE 8 MG in SODIUM CHLORIDE 0.9% 250 ML IV SCH (23:56)
[2021-02-19] MEDS: CEFEPIME 2 GM in SODIUM CHLORIDE 0.9% 100 ML IVPB SCH ×4 (00:02→23:45)
[2021-02-19 04:50] LABS: Basophils % (A) 0 %; Eosinophils % (A) 0 %; HCT 41.1 % (39.0-53.0); HGB 13.1 gm/dL (13.0-17.5); Hypochromasia Marked; Lymphocytes # (A) 0.8 k/uL (1.0-4.8); Lymphocytes % (A) 7 %; MCH 32.7 pg (25.0-35.0); MCHC 31.7 g/dL (31.0-37.0); MCV 103.2 fL (80.0-100.0); Macrocytosis Moderate; Mean Platelet Volume 8.9; Monocytes # (A) 0.7 k/uL (0-1.0); Monocytes % (A) 6 %; Neutrophils # (A) 10.6 k/uL (1.3-7.7); Neutrophils % (A) 86 %; Platelet Count 174 k/uL (150-450); RBC 3.99 m/uL (4.30-5.90); RDW 15.4 % (11.5-15.5); WBC 12.4 k/uL (3.8-10.6)
[2021-02-19 05:13] LABS: Albumin 2.8 g/dL (3.5-5.0); C Reactive Protein 1.6 mg/dL (<1.0); Calcium 8.5 mg/dL (8.4-10.2); Potassium 5.8 mmol/L (3.5-5.1); Total Bilirubin 0.6 mg/dL (0.2-1.3); Total Protein 5.3 g/dL (6.3-8.2)
[2021-02-19 05:33] LABS: ABG Base Excess 4.7 mmol/L; ABG HCO3 32 mmol/L (21-25); ABG Oxygen Saturation 94.6 % (94-97); ABG PH 7.23 (7.35-7.45); ABG PO2 78 mmHg (83-108); ABG TCO2 35 mmol/L (19-24); Allen Test Performed? Yes
[2021-02-19 05:40] LABS: ABG PCO2 77 mmHg (35-45)
--- NOTE | 2021-02-19 05:53 | XR ---
EXAMINATION TYPE: XR chest 1V DATE OF EXAM: 02/19/2021 CLINICAL HISTORY: Difficulty breathing progress study. TECHNIQUE: Single AP portable semiupright view of the chest is obtained. COMPARISON: Chest x-ray from one day earlier and older studies. FINDINGS: Stable endotracheal and orogastric tubes. Stable left subclavian central venous catheter. Persistent bilateral reticulonodular increased opacities with more confluent appearance in the lower lungs, right more prominent than left. Cardiac silhouette size is stable and mildly enlarged. Osseou s structures are intact. IMPRESSION: Persistent bilateral multifocal reticulonodular opacities consistent with covid-19 infect ion. No significant change from x-ray one day earlier.
[2021-02-19] MEDS ORDERED: SODIUM CHLORIDE 0.9% 1,000 ML IV ONE ×2 (06:55→08:13)
--- NOTE | 2021-02-19 06:59 | P.PN ---
Subjective Progress Note Date: 02/19/21 02/13/2021, the patient is being seen for follow-up in intensive care unit. This is a 65-year-old -[place] male patient was admitted with Covid 19 related pneumonia and the patient was initially given high flow oxygen and later on BiPAP and because of ongoing failure, the patient was intubated and placed on a mechanical ventilator. He is a chronic smoker. He also smokes marijuana. The patient was intubated yesterday on 02/12/2021 because of respiratory failure related to Covid 19 related pneumonia. The patient is currently on assist control mode of ventilation. The patient is a rate of 36 with FiO2 of 9 90% 0% and a PEEP of 15 and tidal volume of 500. Your pressures around 41 metastatic pressure of 39. The patient remains sedated on propofol running at 60 mcg/kg per minute and the patient is also paralyzed at 2 mcg/kg per minute. Post intubation, the patient requires also pressors and currently norepinephrine is running at 0.02mcg/kg/per minute. The patient is mechanical ventilator. The patient normal saline at the rate of 75 mL an hour. Chest x-ray showing diffuse but the pulmonary patchy infiltrates. ET tube is in a good location. Note that the patient to telemetry markers from yesterday were quite elevated. LDH level was 4124 and the CRP was 20.5. The patient is currently on Decadron. The patient is also on Lovenox and the patient also received convalescent plasma and Tocilizumab. The LFTs are slightly elevated and the patient has some mild transaminitis related to COVID 19. Based on elevation of the d-dimer, the patient is being given 50 mg of Lovenox which is a half a milligram per KG every 12 hours. The blood gases from today showing a pH of 7.23 with a pCO2 of 63 and pO2 of 109. This was done and FiO2 of 90%. Blood work from today shows a d- dimer of more than 34, potassium level is down to 6.2 and the patient will need obviously D50 insulin along with 2 A of sodium bicarb. This hyperkalemia is related to acidosis. The patient's liver function tests are also elevated as the patient has mild transaminitis, ALT is 229, AST 307, LDH is 2716, pro calcitonin is at 0.14, CRP was 17.8. On 02/14/2021, I'm seeing the patient for a follow-up. This is a case of Covid 19 related pneumonia with secondary hypoxic respiratory failure and the patient has been intubated on 02/12/2021 and the patient is currently being seen in follow-up. On today's evaluation, the patient is on propofol which is running at 75 mg/kg per minute and the patient is also on Nimbex at 3 mcg/kg per minute. He is was sedated insipidus with the mechanical ventilator which is currently running at a tidal volume of 500 with a rate of 36 and it PEEP 15 and an FiO2 of 60%. The patient's blood gases from today showed a pH of 7.37 with a pCO2 of 64 and pO2 of 62 and this was on FiO2 of 60%. His chest x-ray from today is showing diffuse bilateral pulmonary infiltrates, essentially unchanged compared to yesterday and ET tube is in a good location. The patient's inflammatory markers on today's evaluation remain elevated although they're improving. The patient's LDH level is down to 2000 and his CRP level is down to 14 and the d- dimer is still elevated at 24 although is improving. The patient is currently on Decadron 6 mg IV every 24 hours. He is also on Lovenox 50 mg subcu 3 times a day. He is also on a bicarb drip this was added yesterday as the patient was having significant acidosis which was mainly respiratory acidosis and secondary hyperkalemia. Potassium level is down to 5.2 and a pH currently is at 7.37 and as such the bicarb infusion can be discontinued. Creatinine is down to 0.7 and his also recovered from his acute kidney injury. He is on enteral feeding for nutritional support and currently this is running at 27 mL an hour of Nepro. The urine output is adequate and the patient's net fluid balance is +2.1 L over the past 24 hours. His weight is currently up to 101 kg. On today's evaluation for 2020, the patient remains sedated and paralyzed. The patient is on propofol at 75 mcg/kg per minute and the patient is also on Nimbex at 2 mcg/kg/m. The patient is calm and comfortable and successful mechanical ventilator which is running currently with tidal volume of 500, rate of 32, PEEP of 17 and an FiO2 of 50%. The blood is from today showed a pH of 7.3 with a pCO2 of 73 and pO2 of 52. This was done and a PEEP of 17. The chest x-ray is unchanged and there is diffuse bilateral pulmonary infiltrates right more than left lower lung more than the upper lobes. ET tube is high in the trachea and it needs to be pushed then by another centimeter. Orogastric tube is in a good location. The patient otherwise is he was dynamically stable. He remains on Decadron. He remains on Lovenox 50 mg subcutaneous twice a day. He is on IV fluids and currently is receiving normal saline at the rate of 20 mL an hour. Fluid balance over the past 24 hours has been +2.2 L. The patient has been persistently in a positive fluid balance. As for the rest of the blood work, the patient's d-dimer is at 14 which is lower, his LDH is 1693, lower and the CRP is 10.3, lower. As for the rest of the electrolytes, his potassium level is at 5.6 and a serum bicarb is 34 with a BUN of 34 and a creatinine of 0.9. He is on enteral feeding for nutritional support and he is currently receiving Nepro at 27 mL an hour. No other major events overnight. I did do some ventilator changes on the patient y . yesterday which failed. I tried to wean off his feet and it failed and the patient became hypoxic and currently is a 17 of PEEP. he has a peak airway pressure in the setting of a pressure of 36 and 34 respectively On 02/16/2021, the patient is being seen in follow-up in the intensive care unit. The patient remains sedated and paralyzed. On today's evaluation, propofol is running at 70 mcg/kg per minute and the patient is also paralyzed with Nimbex running at 2 mcg/kg per minute. He is essentially the same as yesterday. Meanwhile, the patient remains on a mechanical ventilator. The patient is on the volumes second assist-control mode with a tidal volume of 500, rate of 32, FiO2 of 50% and a PEEP of 17. Again, these are the same ventilator settings as of yesterday. PH is at 7.31 with a pCO2 of 68 and pO2 of 60. Chest x-ray from today is not showing any major interval change. Orotracheal tube is in place. NG tube in place. There are bilateral pulmonary infiltrates and the findings are typical of ARDS. Meanwhile, the peak airway pressures at 36, static pressures are 34. These are the same numbers as of yesterday. The patient is a d-dimer of 9.6 with CRP of 7.6 and a LDH level of 1363. Currently is running a lower blood pressure with a systolic in the 90s. Lopressor has been held. Cardiac rhythm is sinus. IV fluids are running at disease an hour and the patient is not fluid balance is around 2.2 L positive over the past 24 hours. The patient is having a low-grade fever. His T-max was 100.2. Note that he is not covered with any antibiotics at this point in time. White cell count of 12.7. This of the blood work and electrolytes showed development of an acute kidney injury. Creatinine is up to 1.5 on today's evaluation and the rest of the blood work shows sodium 137, potassium of 5.1, LFTs are also showing some mild component of transaminitis. He is on enteral feeding for nutritional support and the patient is currently receiving Nepro 25 mL an hour. His urine o utput is in order of 40 cc hr 2020, the patient is not doing much in progress. His condition was stable yesterday and he continues to be sedated and paralyzed on today's evaluation where propofol is running at 65 mcg/kg per minute and the patient is also paralyzed on Nimbex at 2 mcg/kg per minute. Remains on the same ventilator setting with a tidal volume of 450, rate of 32, PEEP of 17 with a FiO2 of 50%. Chest x-ray findings and essentially unchanged over the past several days. The blood gases from today is showing a pH of 7.27 with a pCO2 of 81 and pO2 of 55. The peak airway pressure is around 35 and this static airway pressure is 33. The patient's hemodynamics is stable. He developed an acute kidney injury yesterday related to hypotension and he was given IV fluids and the creatinine is down to 1.2. His net fluid balance on today's evaluation is in the order of +2.2 L 4 02/15/2021 and +764 for 2020. He is currently on no pressors. Note that the patient had some fever since yesterday. The patient was pancultured. There is also still pending for now. No antibiotics was provided. The pro- calcitonin level came back quite elevated. The level is at 1.25. Meanwhile, he remains stable hemodynamically and his renal function is improving and the creatinine is down to 1.3. He is producing adequate amount of urine output for now. He is still running a low-grade fever White count at 13.6, inflammatory markers showed a d-dimer of 5.4 with a LDH level of 1230 and the CRP is at 6. He remains on steroids and the patient is receiving Decadron 6 mg IV every 12 hours. He did have an echocardiogram that showed impaired LV function with an ejection fraction of around 20-25%. He was trialed on dobutamine yesterday to augment his cardiac output and improve the renal failure. He did become tachycardic with dobutamine and this was discontinued. No other processes was given. He remains on enteral feeding for nutritional support and he is receiving Nepro at the rate of 27 mL an hour. Otherwise, no other major events occurring overnight. 02/18/2021, we are following this patient in the intensive care unit for a follow-up. Still sedated and paralyzed. An attempt to do the patient had paralytic holiday yesterday failed as the patient decompensated and the patient became hypoxic. Based on that, the patient placed back on a combination of propofol was still running at 65 mg/kg/m the Nimbex is running at 2 mcg/kg/h. As such, the patient remains sedated and paralyzed. Still on a mechanical ventilator. Essentially the same ventilator settings. Tidal volumes of 450 with a rate of 32 and a PEEP currently is at 17 with an FiO2 of 50%. The peak and static pressures remain elevated with a peak airway pressure of 34 ascending aortic pressure of 32. Blood gases from today showed a pH of 7.28 with a pCO2 of 78 and pO2 of 53. As such, oxygenation remains borderline and the patient is still undergoing permissive hypercapnia. Chest x-ray findings from today are essentially stable. Fluid balance was slightly positive and the patient was not receiving any pressors. In terms of inflammatory markers, the patient has an LDH of 1169 and a CRP of 1.1 and there is a slight rise in the creatinine which is up to 1.32. Note that his renal function continues to fluctuate. At one point he developed an acute kidney injury with a creatinine of 1.5. Otherwise, his white cell count is at 11.8 and the patient continues to have a lymphopenia. In terms of therapy, the patient remains on Decadron 6 mg IV twice a day. He remains on Lovenox 50 mg subcu every 12 hours. As mentioned earlier, he was diagnosed also having a cardiomyopathy with an ejection fraction of 20-25%. Enterofeeding is still with Nepro. The current rate is at 27 mL an hour and the patient is able to tolerate enteral feeding without any major issues. No diarrhea for now. fever. The urine culture that was done as part of a septic workup showed gram-negative bacillus and the patient is currently on IV cefepime. He was also given a dose of vancomycin for gram-positive cocci in his blood and is do not to be a coagulase-negative staph. His pro-calcitonin level was at 1.25 is currently coming down to 0.73 and essentially is improving. Still running a low-grade fever with a T-max of 100.4. On today's evaluation of 02/19/2021, the patient remains intubated on a mechanical ventilator, sedated and paralyzed. The patient is a case of COVID-19 pneumonia with secondary ARDS. The patient is sedated and we're unable to cut down his sedation or paralytics over the past few days and the patient has not made a lot of progress. He remains sedated with propofol which is running at 55 mics respiratory/ minute and he is also on Nimbex at 2 mg/kg/h. The paralytic holiday was given and the patient failed due to oxygen desaturation. He remains on assist control mode with a tidal volume of 450 with a rate of 82 and the PEEP is at 17 and his FiO2 is at 60%. His chest x-ray from today is showing diffuse bilateral pulmonary infiltrates most on the lung bases. Extremities are quite diffuse. ET tube is in a good location. Orogastric tube is also in good location. The peak and static pressures today are 33 and 31 respectively and the blood gases showing permissive hypercapnia with a pH of 7.23 and a pCO2 of 77 and pO2 of 78 and this was done and FiO2 of 60%. Unable to get this patient off paralytics because of a synchrony and oxygen desaturation. Hemodynamically stable on no pressors. His blood work shows an LDH of 898 which is up compared to yesterday and the CRP level is down to 1.6. He has developed an acute kidney injury in the creatinine is up to 2.5 with a mean of 18. The white cell count is at 12.4 and the patient continues to have a lymphopenia. The fluid balance over the past 24 hours has been +1 L and the patient is receiving IV fluids at 20 mL an hour and the patient is also on enteral feeding for nutritional support in the form of Nepro 27 mL an hour. He does have a E. coli urinary tract infection patient continues to be on IV cefepime. He is on no pressors for now. He is afebrile. No significant orotracheal secretions. No pressors. Objective - Vital Signs Vital signs: Vital Signs Temp 98.7 F 02/19/21 04:00 Pulse 92 02/19/21 05:00 Resp 32 H 02/19/21 05:00 BP 91/46 02/19/21 05:00 Pulse Ox 92 L 02/19/21 05:00 Intake & Output 02/18/21 02/18/21 02/19/21 06:59 18:59 06:59 Intake Total 1010.781 408.380 1851.447 Output Total 825 800 380 Balance 185.781 23.372 634.447 Weight 106.1 kg 104.4 kg Intake: IV 140 206 220 .9NS 110 170 190 Pressure bag 30 36 30 Intake, IV Titration 513.781 401.372 464.447 Amount Cefepime 2 gm In Sodium 200 Chloride 0.9% 100 ml @ 25 mls/hr IVPB Q8HR [facility] Rx# :[id number] Cisatracurium 200 mg In 141.505 264.447 Sodium Chloride 0.9% 180 ml @ 1 MCG/KG/MIN 5.987 mls/hr IV .Q24H [facility] Rx#: [id number] propofoL 1,000 mg In 372.276 201.372 200 Empty Bag 1 bag @ Titrate IV .Q0M [facility] Rx#: [id number] Tube Feeding 297 216 270 Other 60 60 Output: Urine 825 800 380 Other: Voiding Method Indwelling Catheter Indwelling Catheter Indwelling Catheter ABP, PAP, CO, CI - Last Documented Arterial Blood Pressure 113/42 - Exam GENERAL EXAM: Intubated, sedated, paralyzed 65-year-old male, currently on the mechanical ventilator , comfortable in no apparent distress. HEAD: Normocephalic/atraumatic. EYES: Fish reaction of pupils, equal size. Conjunctiva pink, sclera white. NOSE: Clear with pink turbinates. THROAT: Oral endotracheal and gastric tube secured in place. No erythema or exudates. NECK: No masses, no JVD, no thyroid enlargement, no adenopathy. CHEST: No chest wall deformity. Symmetrical expansion. LUNGS: Equal air entry with diffuse bibasilar crackles CVS: Regular rate and rhythm, normal S1 and S2, no gallops, no murmurs, no rubs ABDOMEN: Soft, nontender. No hepatosplenomegaly, normal bowel sounds, no guarding or rigidity. EXTREMITIES: No clubbing, no edema, no cyanosis, 2+ pulses and upper and lower extremities. MUSCULOSKELETAL: Muscle strength and tone normal. SPINE: No scoliosis or deformity SKIN: No rashes CENTRAL NERVOUS SYSTEM: Sedated, paralyzed, tone is normal in all 4 extremities. PSYCHIATRIC: Sedated, paralyzed - Labs CBC & Chem 7: 02/19/21 04:00 02/19/21 04:00 Labs: Abnormal Lab Results - Last 24 Hours (Table) 02/18/21 02/18/21 02/19/21 Range/Units 17:37 23:53 04:00 WBC (3.8-10.6) k/uL RBC (4.30-5.90) m/uL MCV (80.0-100.0) fL Neutrophils # (1.3-7.7) k/uL Lymphocytes # (1.0-4.8) k/uL D-Dimer (<0.60) mg/L FEU ABG pH (7.35-7.45) ABG pCO2 (35-45) mmHg ABG pO2 (83-108) mmHg ABG HCO3 (21-25) mmol/L ABG Total CO2 (19-24) mmol/L Potassium 5.8 H (3.5-5.1) mmol/L Carbon Dioxide 33 H (22-30) mmol/L BUN 80 H (9-20) mg/dL Creatinine 2.50 H (0.66-1.25) mg/dL Glucose 133 H (74-99) mg/dL POC Glucose (mg/dL) 143 H 176 H (75-99) mg/dL ALT 108 H (4-49) U/L Lactate Dehydrogenase 898 H (313-618) U/L C-Reactive Protein 1.6 H (<1.0) mg/dL Total Protein 5.3 L (6.3-8.2) g/dL Albumin 2.8 L (3.5-5.0) g/dL 02/19/21 02/19/21 02/19/21 Range/Units 04:00 04:00 05:36 WBC 12.4 H (3.8-10.6) k/uL RBC 3.99 L (4.30-5.90) m/uL MCV 103.2 H (80.0-100.0) fL Neutrophils # 10.6 H (1.3-7.7) k/uL Lymphocytes # 0.8 L (1.0-4.8) k/uL D-Dimer 4.03 H (<0.60) mg/L FEU ABG pH 7.23 L (7.35-7.45) ABG pCO2 77 H* (35-45) mmHg ABG pO2 78 L (83-108) mmHg ABG HCO3 32 H (21-25) mmol/L ABG Total CO2 35 H (19-24) mmol/L Potassium (3.5-5.1) mmol/L Carbon Dioxide (22-30) mmol/L BUN (9-20) mg/dL Creatinine (0.66-1.25) mg/dL Glucose (74-99) mg/dL POC Glucose (mg/dL) (75-99) mg/dL ALT (4-49) U/L Lactate Dehydrogenase (313-618) U/L C-Reactive Protein (<1.0) mg/dL Total Protein (6.3-8.2) g/dL Albumin (3.5-5.0) g/dL Microbiology - Last 24 Hours (Table) 02/16/21 08:15 Blood Culture Gram Stain - Final Blood Blood Culture - Final Coagulase Negative Staph 02/16/21 15:23 Urine Culture - Final Urine,Voided Escherichia coli 02/16/21 08:05 Blood Culture - Preliminary Blood No Growth after 48 hours Assessment and Plan Plan: 1 ARDS with secondary acute hypoxemic respiratory failure, related to COVID 19 pneumonia, with onset of symptoms 14 days ago, outside the window for Remdesivir. Received tocilizumab and 1 unit of convalescent plasma. Continued to deteriorate and intubated and placed on mechanical ventilator on 02/12/2021. The patient continues to have elevated peak and static pressure. His PF ratio is still low. The patient continues to have permissive hypercapnia as on his blood gas today he is still hypoxic and the chest x-ray is not showing any interval improvement of progression. As such, his been essentially unchanged over the past several days. Meanwhile, we cultured gram-negative bacillus in his urine and this is being treated. There is also coagulase-negative the blood, likely contaminant. The patient has done limited progress over the past 1 week. The patient remains intubated on a mechanical ventilator. Unable to wean him off the paralytics because of oxygen desaturations. We'll try another paralytic holiday today. Remains on Decadron 6 mg IV every 12 hours and the patient is also on Lovenox 50 mg subcu twice a day. Inflammatory markers are down trending. Chest exit findings are essentially stable and unchanged and the patient has typical COVID-19 related pneumonia/ARDS picture on the chest x-ray. 2 Elevated inflammatory markers related to the above must slightly improving 3 E. coli UTI. Patient is currently on IV cefepime. 4 Troponin leak, likely related to severe COVID 19 pneumonia with severe hypoxic respiratory failure, and cardiology is following 5 Transaminitis secondary to above, improving 5 Former smoker, carries [id number] smoking history, currently in remission, suspect underlying COPD 6 Marijuana use 8 acute kidney injury with a creatinine is at the rise and is currently up to 2.5 9 severe cardiomyopathy with an ejection fraction of 20-25%. The patient was diuresed yesterday and the patient developed an acute kidney injury and diuretics will placed on hold for now. He is referred to the echocardiogram that was done on 02/10/2021. Plan: Continue ventilator support, no vent changes for today Keep sedation Daily paralytic holiday antibiotic coverage with IV cefepime 2 g every 12 hours. The pro calcitonin level is down trending Chest x-ray was noted, blood gases was noted Continue dexamethasone, Lovenox, vitamin supplements Received tocilizumab and convalescent plasma blood cultures still negative Enteral feeding for nutritional support, Monitor inflammatory markers Give the patient bolus of 1 L of IV fluid maintenance up to 75 mL an hour Monitor the renal function and the urine output Consult nephrology Dobutamine was attempted few days ago to augment his cardiac output due to his underlying cardiorenal syndrome. The patient became quite tachycardic and unstable and a sense of the discontinued. We will continue to follow make further recommendations based on his clinical status Critical care time > 30 minutes Time with Patient: Greater than 30
[2021-02-19] MEDS ORDERED: VANCOMYCIN TROUGH DUE 1 EACH MISC MISCELLANE ONE (07:00)
[2021-02-19] MEDS: SODIUM CHLORIDE 0.9% 1,000 ML IV SCH ×2 (07:17→20:25)
[2021-02-19] MEDS: ASPIRIN 81 MG PO SCH (08:07)
[2021-02-19] MEDS: ZINC SULFATE 220 MG CAP PO SCH (08:08)
[2021-02-19] MEDS: DEXAMETHASONE SOD PHOSPHATE 10 MG/ML 1 ML VIAL IV SCH ×2 (08:08→20:25)
[2021-02-19] MEDS: CHOLECALCIFEROL 25 MCG (1000 IU) TABLET PO SCH (08:08)
[2021-02-19] MEDS: FAMOTIDINE 20 MG/2 ML VIAL IV SCH (08:08)
[2021-02-19] MEDS: CHLORHEXIDINE GLUCONATE 15 ML CUP MUCOUS MEM SCH ×2 (08:08→20:25)
[2021-02-19] MEDS: ENOXAPARIN 60 MG/0.6 ML SYRINGE SQ SCH ×2 (08:13→20:28)
[2021-02-19] MEDS: ASCORBIC ACID 500 MG TAB PO SCH (08:13)
[2021-02-19] MEDS: METOPROLOL TARTRATE 25 MG TAB PO SCH ×2 (10:13→20:25)
[2021-02-19] MEDS ORDERED: FUROSEMIDE 10 MG/ML 10 ML VIAL IV STA (11:04)
[2021-02-19] MEDS: MIDODRINE 5 MG TAB PO SCH ×2 (11:41→17:20)
--- NOTE | 2021-02-19 12:22 | CONS ---
CONSULTATION REASON FOR CONSULT: Renal failure. HISTORY OF PRESENT ILLNESS: The patient is a 65-year-old male who was admitted to the hospital on 02/09/2021 with shortness of breath and acute hypoxic respiratory failure from COVID pneumonia. The patient was eventually intubated for worsening respiratory failure on 02/12/2021. Serum creatinine was ranging between 1.0-1.3 mg/dL with a spike at 1.5 on 02/16/2021. It was 1.32 on 02/18/2021 and had increased to 2.5 today. Urine output has dropped about 10 mL an hour for the last couple of hours. Potassium was also elevated at 5.8 today. The patient's blood pressure has been on the lower side. He has been on and off on small dose of Levophed. Currently receiving 2 L of fluid bolus and maintained on saline at 75 mL an hour. FiO2 has been at 60%, O2 sats about 92%. No active GI bleed noted at this time. The patient did have a chest CTA done on initial admission on 02/09/2021 which was negative for PE. Blood culture had grown coagulase-negative staph and sputum culture also grew presumptive staph and patient was on vancomycin which was recently discontinued. I do not see a vancomycin level in his labs. PAST MEDICAL HISTORY: None reported. MEDICATIONS: At home prior to admission included Decadron, Zithromax and [place]. SOCIAL HISTORY: Patient is a former smoker. No history of drug abuse or alcohol abuse. PAST SURGICAL HISTORY: Surgeries on the left shoulder. ALLERGIES: NKDA. REVIEW OF SYSTEMS: Currently negative for ongoing GI bleed. Patient remains on the vent, he is tolerating tube feeds, maintained on sedation. PHYSICAL EXAMINATION: On examination today, patient is sedated on the vent. Blood pressure was 106/50, heart rate 81 per minute, he is afebrile. O2 sats about 92% on 60% FiO2. Urine output 10 mL an hour for the last couple of hours. Tolerating tube feeds. There is 1+ edema bilateral lower extremities. Some scrotal edema noted as well. Abdomen is soft, nontender. SIGN POSTER exam cannot be performed as patient is sedated. LAB: Show sodium 141, potassium 5.8, chloride 105, CO2 is 33, BUN 80, creatinine 2.5, hemoglobin 13.1 g/dL. ASSESSMENT: 1. Acute kidney injury, acute tubular necrosis, secondary to hypotension, underlying COVID infection, currently oliguric. 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 The acute tubular necrosis is also probably related to some degree of contrast nephropathy, although creatinine had not increased significantly until the 16 of February. 2. Hyperkalemia associated with acute kidney injury. Trial of one dose of Lasix. No active GI bleed. Change tube feeds to Nepro. 3. Acute hypoxic respiratory failure from COVID pneumonia. 4. COVID pneumonia, maintained on Decadron. 5. Hypotension secondary to sepsis. 6. Escherichia coli urinary tract infection. 7. Pneumonia with COVID pneumonia as well as Staph aureus growing in the sputum. 8. Coagulase-negative Staph bacteremia, possible contaminant. PLAN: Change the feeds to Nepro. Try one dose of Lasix. Continue with IV fluids. Repeat potassium later on today. If renal function continues to worsen and patient's hyperkalemia does not improve, he may need renal replacement therapy. Continue to avoid nephrotoxic agents. Agree with discontinuation of vancomycin. Thank you for this consultation. We will continue to follow the patient with you during his hospitalization. MMODL / IJN: [id number] /
[2021-02-19 12:43] LABS: Glucose,Whole Blood 134 mg/dL (75-99)
[2021-02-19] MEDS: NOREPINEPHRINE 8 MG in SODIUM CHLORIDE 0.9% 250 ML IV SCH (22:01)
[2021-02-19 23:56] LABS: Glucose,Whole Blood 134 mg/dL (75-99)
[2021-02-20] MEDS: NOREPINEPHRINE 8 MG in SODIUM CHLORIDE 0.9% 250 ML IV SCH (01:12)
[2021-02-20] MEDS: CISATRACURIUM 200 MG in SODIUM CHLORIDE 0.9% 180 ML IV SCH (01:13)
[2021-02-20 04:05] LABS: Basophils % (A) 0 %; Eosinophils % (A) 0 %; HCT 40.3 % (39.0-53.0); HGB 12.9 gm/dL (13.0-17.5); Hypochromasia Marked; Lymphocytes # (A) 0.8 k/uL (1.0-4.8); Lymphocytes % (A) 8 %; MCH 32.9 pg (25.0-35.0); Macrocytosis Moderate; Mean Platelet Volume 8.7; Monocytes # (A) 0.6 k/uL (0-1.0); Monocytes % (A) 6 %; Neutrophils % (A) 84 %; Platelet Count 168 k/uL (150-450); RBC 3.92 m/uL (4.30-5.90); RDW 15.6 % (11.5-15.5); WBC 9.6 k/uL (3.8-10.6)
[2021-02-20 04:22] LABS: Albumin 2.9 g/dL (3.5-5.0); Calcium 8.6 mg/dL (8.4-10.2); Total Bilirubin 0.5 mg/dL (0.2-1.3); Total Protein 5.4 g/dL (6.3-8.2)
[2021-02-20 04:45] LABS: ABG Base Excess -0.2 mmol/L; ABG HCO3 28 mmol/L (21-25); ABG Oxygen Saturation 92.9 % (94-97); ABG PO2 69 mmHg (83-108); ABG TCO2 30 mmol/L (19-24)
[2021-02-20 04:47] LABS: Potassium 6.1 mmol/L (3.5-5.1)
[2021-02-20 04:58] LABS: ABG PCO2 75 mmHg (35-45); ABG PH 7.18 (7.35-7.45); Allen Test Performed? no
[2021-02-20] MEDS ORDERED: DEXTROSE 50% SYRINGE 50 ML IVP ONE (05:55)
[2021-02-20] MEDS ORDERED: INSULIN REGULAR 100 UNIT/ML VIAL IV ONE ×3 (05:55→21:12)
[2021-02-20] MEDS ORDERED: FUROSEMIDE 10 MG/ML 10 ML VIAL IV STA (05:56)
[2021-02-20] MEDS: MIDODRINE 5 MG TAB PO SCH ×3 (06:53→18:28)
[2021-02-20] MEDS: CEFEPIME 2 GM in SODIUM CHLORIDE 0.9% 100 ML IVPB SCH ×3 (07:40→23:53)
[2021-02-20] MEDS: CHOLECALCIFEROL 25 MCG (1000 IU) TABLET PO SCH (07:41)
[2021-02-20] MEDS: CHLORHEXIDINE GLUCONATE 15 ML CUP MUCOUS MEM SCH ×2 (07:41→21:14)
[2021-02-20] MEDS: ASPIRIN 81 MG PO SCH (07:41)
[2021-02-20] MEDS: ASCORBIC ACID 500 MG TAB PO SCH (07:41)
[2021-02-20] MEDS: DEXAMETHASONE SOD PHOSPHATE 10 MG/ML 1 ML VIAL IV SCH ×2 (07:41→21:14)
[2021-02-20] MEDS: FAMOTIDINE 20 MG/2 ML VIAL IV SCH (07:42)
[2021-02-20] MEDS: ZINC SULFATE 220 MG CAP PO SCH (07:42)
[2021-02-20] MEDS: ENOXAPARIN 60 MG/0.6 ML SYRINGE SQ SCH ×2 (07:42→21:14)
--- NOTE | 2021-02-20 08:33 | XR ---
EXAMINATION TYPE: XR chest 1V portable DATE OF EXAM: 02/20/2021 Comparison: 02/19/2021 Clinical History: 65-year-old male intubated/ covid Findings: ET tube tip just below the medial clavicular heads. Distal aspect of the NG tube is outside the field of view. The extreme lung bases are excluded. Hyperinflation. Heart borderline in size. Diffuse inte rstitial changes and airspace opacity in the mid and lower lungs show no significant change. Impression: COPD and borderline heart size. Interstitial changes and minimal lower lung airspace disease shows no significant change.
[2021-02-20] MEDS: SODIUM CHLORIDE 0.9% 1,000 ML IV SCH (09:58)
[2021-02-20] MEDS: fentaNYL (PF). 1,000 MCG in SODIUM CHLORIDE 0.9% 80 ML IV SCH (09:58)
--- NOTE | 2021-02-20 10:15 | P.PN ---
Subjective Progress Note Date: 02/20/21 Principal diagnosis: Acute hypoxic respiratory failure secondary to COVID-19 pneumonia and ARDS 02/13/2021, the patient is being seen for follow-up in intensive care unit. This is a 65-year-old -[place] male patient was admitted with Covid 19 related pneumonia and the patient was initially given high flow oxygen and later on BiPAP and because of ongoing failure, the patient was intubated and placed on a mechanical ventilator. He is a chronic smoker. He also smokes marijuana. The patient was intubated yesterday on 02/12/2021 because of respiratory failure related to Covid 19 related pneumonia. The patient is currently on assist control mode of ventilation. The patient is a rate of 36 with FiO2 of 9 90% 0% and a PEEP of 15 and tidal volume of 500. Your pressures around 41 metastatic pressure of 39. The patient remains sedated on propofol running at 60 mcg/kg per minute and the patient is also paralyzed at 2 mcg/kg per minute. Post intubation, the patient requires also pressors and currently norepinephrine is running at 0.02mcg/kg/per minute. The patient is mechanical ventilator. The patient normal saline at the rate of 75 mL an hour. Chest x-ray showing diffuse but the pulmonary patchy infiltrates. ET tube is in a good location. Note that the patient to telemetry markers from yesterday were quite elevated. LDH level was 4124 and the CRP was 20.5. The patient is currently on Decadron. The patient is also on Lovenox and the patient also received convalescent plasma and Tocilizumab. The LFTs are slightly elevated and the patient has some mild transaminitis related to COVID 19. Based on elevation of the d-dimer, the patient is being given 50 mg of Lovenox which is a half a milligram per KG every 12 hours. The blood gases from today showing a pH of 7.23 with a pCO2 of 63 and pO2 of 109. This was done and FiO2 of 90%. Blood work from today shows a d- dimer of more than 34, potassium level is down to 6.2 and the patient will need obviously D50 insulin along with 2 A of sodium bicarb. This hyperkalemia is related to acidosis. The patient's liver function tests are also elevated as the patient has mild transaminitis, ALT is 229, AST 307, LDH is 2716, pro calcitonin is at 0.14, CRP was 17.8. On 02/14/2021, I'm seeing the patient for a follow-up. This is a case of Covid 19 related pneumonia with secondary hypoxic respiratory failure and the patient has been intubated on 02/12/2021 and the patient is currently being seen in follow-up. On today's evaluation, the patient is on propofol which is running at 75 mg/kg per minute and the patient is also on Nimbex at 3 mcg/kg per minute. He is was sedated insipidus with the mechanical ventilator which is currently running at a tidal volume of 500 with a rate of 36 and it PEEP 15 and an FiO2 of 60%. The patient's blood gases from today showed a pH of 7.37 with a pCO2 of 64 and pO2 of 62 and this was on FiO2 of 60%. His chest x-ray from today is showing diffuse bilateral pulmonary infiltrates, essentially unchanged compared to yesterday and ET tube is in a good location. The patient's inflammatory markers on today's evaluation remain elevated although they're improving. The patient's LDH level is down to 2000 and his CRP level is down to 14 and the d-d shivam is still elevated at 24 although is improving. The patient is currently on Decadron 6 mg IV every 24 hours. He is also on Lovenox 50 mg subcu 3 times a day. He is also on a bicarb drip this was added yesterday as the patient was having significant acidosis which was mainly respiratory acidosis and secondary hyperkalemia. Potassium level is down to 5.2 and a pH currently is at 7.37 and as such the bicarb infusion can be discontinued. Creatinine is down to 0.7 and his also recovered from his acute kidney injury. He is on enteral feeding for nutritional support and currently this is running at 27 mL an hour of Nepro. The urine output is adequate and the patient's net fluid balance is +2.1 L over the past 24 hours. His weight is currently up to 101 kg. On today's evaluation for 2020, the patient remains sedated and paralyzed. The patient is on propofol at 75 mcg/kg per minute and the patient is also on Nimbex at 2 mcg/kg/m. The patient is calm and comfortable and successful mechanical ventilator which is running currently with tidal volume of 500, rate of 32, PEEP of 17 and an FiO2 of 50%. The blood is from today showed a pH of 7.3 with a pCO2 of 73 and pO2 of 52. This was done and a PEEP of 17. The chest x-ray is unchanged and there is diffuse bilateral pulmonary infiltrates right more than left lower lung more than the upper lobes. ET tube is high in the tr achea and it needs to be pushed then by another centimeter. Orogastric tube is in a good location. The patient otherwise is he was dynamically stable. He remains on Decadron. He remains on Lovenox 50 mg subcutaneous twice a day. He is on IV fluids and currently is receiving normal saline at the rate of 20 mL an hour. Fluid balance over the past 24 hours has been +2.2 L. The patient has been persistently in a positive fluid balance. As for the rest of the blood work, the patient's d-dimer is at 14 which is lower, his LDH is 1693, lower and the CRP is 10.3, lower. As for the rest of the electrolytes, his potassium level is at 5.6 and a serum bicarb is 34 with a BUN of 34 and a creatinine of 0.9. He is on enteral feeding for nutritional support and he is currently receiving Nepro at 27 mL an hour. No other major events overnight. I did do some ventilator changes on the patient y . yesterday which failed. I tried to wean off his feet and it failed and the patient became hypoxic and currently is a 17 of PEEP. he has a peak airway pressure in the setting of a pressure of 36 a nd 34 respectively On 02/16/2021, the patient is being seen in follow-up in the intensive care unit . The patient remains sedated and paralyzed. On today's evaluation, propofol is running at 70 mcg/kg per minute and the patient is also paralyzed with Nimbex running at 2 mcg/kg per minute. He is essentially the same as yesterday. Meanwhile, the patient remains on a mechanical ventilator. The patient is on the volumes second assist-control mode with a tidal volume of 500, rate of 32, FiO2 of 50% and a PEEP of 17. Again, these are the same ventilator settings as of yesterday. PH is at 7.31 with a pCO2 of 68 and pO2 of 60. Chest x-ray from today is not showing any major interval change. Orotracheal tube is in place. NG tube in place. There are bilateral pulmonary infiltrates and the findings are typical of ARDS. Meanwhile, the peak airway pressures at 36, static pressures are 34. These are the same numbers as of yesterday. The patient is a d-dimer of 9.6 with CRP of 7.6 and a LDH level of 1363. Currently is running a lower blood pressure with a systolic in the 90s. Lopressor has been held. Cardiac rhythm is sinus. IV fluids are running at disease an hour and the clarisse ent is not fluid balance is around 2.2 L positive over the past 24 hours. The patient is having a low-grade fever. His T-max was 100.2. Note that he is not covered with any antibiotics at this point in time. White cell count of 12.7. This of the blood work and electrolytes showed development of an acute kidney injury. Creatinine is up to 1.5 on today's evaluation and the rest of the blood work shows sodium 137, potassium of 5.1, LFTs are also showing some mild component of transaminitis. He is on enteral feeding for nutritional support and the patient is currently receiving Nepro 25 mL an hour. His urine output is in order of 40 cc hr 2020, the patient is not doing much in progress. His condition was stable yesterday and he continues to be sedated and paralyzed on today's evaluation where propofol is running at 65 mcg/kg per minute and the patient is also paralyzed on Nimbex at 2 mcg/kg per minute. Remains on the same ventilator setting with a tidal volume of 450, rate of 32, PEEP of 17 with a FiO2 of 50%. Chest x-ray findings and essentially unchanged over the past several days. The blood gases from today is showing a pH of 7.27 with a pCO2 of 81 and pO2 of 55. The peak airway pressure is around 35 and this static airway pressure is 33. The patient's hemodynamics is stable. He developed an acute kidney injury yesterday related to hypotension and he was given IV fluids and the creatinine is down to 1.2. His net fluid balance on today's evaluation is in the order of +2.2 L 4 02/15/2021 and +764 for 2020. He is currently on no pressors. Note that the patient had some fever since yesterday. The patient was pancultured. There is also still pending for now. No antibiotics was provided. The pro- calcitonin level came back quite elevated. The level is at 1.25. Meanwhile, he remains stable hemodynamically and his renal function is improving and the creatinine is down to 1.3. He is producing adequate amount of urine output for now. He is still running a low-grade fever White count at 13.6, inflammatory markers showed a d-dimer of 5.4 with a LDH level of 1230 and the CRP is at 6. He remains on steroids and the patient is receiving Decadron 6 mg IV every 12 hours. He did have an echocardiogram that showed impaired LV function with an ejection fraction of around 20-25%. He was trialed on dobutamine yesterday to augment his cardiac output and improve the renal failure. He did become tachycardic with dobutamine and this was discontinued. No other processes was given. He remains on enteral feeding for nutritional support and he is receiving Nepro at the rate of 27 mL an hour. Otherwise, no other major events occurring overnight. 02/18/2021, we are following this patient in the intensive care unit for a follow-up. Still sedated and paralyzed. An attempt to do the patient had paralytic holiday yesterday failed as the patient decompensated and the patient became hypoxic. Based on that, the patient placed back on a combination of propofol was still running at 65 mg/kg/m the Nimbex is running at 2 mcg/kg/h. As such, the patient remains sedated and paralyzed. Still on a mechanical ventilator. Essentially the same ventilator settings. Tidal volumes of 450 with a rate of 32 and a PEEP currently is at 17 with an FiO2 of 50%. The peak and static pressures remain elevated with a peak airway pressure of 34 ascending aortic pressure of 32. Blood gases from today showed a pH of 7.28 with a pCO2 of 78 and pO2 of 53. As such, oxygenation remains borderline and the patient is still undergoing permissive hypercapnia. Chest x-ray findings from today are essentially stable. Fluid balance was slightly positive and the patient was not receiving any pressors. In terms of inflammatory markers, the patient has an LDH of 1169 and a CRP of 1.1 and there is a slight rise in the creatinine which is up to 1.32. Note that his renal function continues to fluctuate. At one point he developed an acute kidney injury with a creatinine of 1.5. Otherwise, his white cell count is at 11.8 and the patient continues to have a lymphopenia. In terms of therapy, the patient remains on Decadron 6 mg IV twice a day. He remains on Lovenox 50 mg subcu every 12 hours. As mentioned earlier, he was diagnosed also having a cardiomyopathy with an ejection fraction of 20-25%. Enterofeeding is still with Nepro. The current rate is at 27 mL an hour and the patient is able to tolerate enteral feeding without any major issues. No diarrhea for now. fever. The urine culture that was done as part of a septic workup showed gram-negative bacillus and the patient is currently on IV cefepime. He was also given a dose of vancomycin for gram-positive cocci in his blood and is do not to be a coagulase-negative staph. His pro-calcitonin level was at 1.25 is currently coming down to 0.73 and essentially is improving. Sti ll running a low-grade fever with a T-max of 100.4. On today's evaluation of 02/19/2021, the patient remains intubated on a mechanical ventilator, sedated and paralyzed. The patient is a case of COVID-19 pneumonia with secondary ARDS. The patient is sedated and we're unable to cut down his sedation or paralytics over the past few days and the patient has not made a lot of progress. He remains sedated with propofol which is running at 55 mics respiratory/ minute and he is also on Nimbex at 2 mg/kg/h. The paralytic holiday was given and the patient failed due to oxygen desaturation. He remains on assist control mode with a tidal volume of 450 with a rate of 82 and the PEEP is at 17 and his FiO2 is at 60%. His chest x-ray from today is showing diffuse bilateral pulmonary infiltrates most on the lung bases. Extremities are quite diffuse. ET tube is in a good location. Orogastric tube is also in good location. The peak and static pressures today are 33 and 31 respectively and th e blood gases showing permissive hypercapnia with a pH of 7.23 and a pCO2 of 77 and pO2 of 78 and this was done and FiO2 of 60%. Unable to get this patient off paralytics because of a synchrony and oxygen desaturation. Hemodynamically stable on no pressors. His blood work shows an LDH of 898 which is up compared to yesterday and the CRP level is down to 1.6. He has developed an acute kidney injury in the creatinine is up to 2.5 with a mean of 18. The white cell count is at 12.4 and the patient continues to have a lymphopenia. The fluid balance over the past 24 hours has been +1 L and the patient is receiving IV fluids at 20 mL an hour and the patient is also on enteral feeding for nutritional support in the form of Nepro 27 mL an hour. He does have a E. coli urinary tract infection patient continues to be on IV cefepime. He is on no pressors for now. He is afebrile. No significant orotracheal secretions. No pressors. Patient was reevaluated today on 02/20/2021, remains intubated and mechanically ventilated. He is on assist control rate of 32 volume 450 FiO2 60% PEEP is 17. Patient is on permissive hypercapnia his ABG showed a pO2 of 69 pCO2 of 75 pH of 7.18. Peak airway pressure is 38 static pressure is 35. He is on propofol at 15 Nimbex at one and IV fluid 0.9 normal saline at 70 mL per hour. Patient is on enteral feeding in the form of Nepro 27 mL/h. Today I increased his tidal volume to 470 to improve his pCO2 and improve his pH. I started the patient on fentanyl. And his IV fluid was cut down to 50 mL/h. WBC count is 9.6 L. Hemoglobin is 12.9 d-dimer is 3.36 Potassium is 6. BUN is 99 creatinine is 4.15. LDH is 1032, C-reactive protein is 2.0. ALT is 94. Slightly elevated. Objective - Vital Signs Vital signs: Vital Signs Temp 98.9 F 02/20/21 04:00 Pulse 101 H 02/20/21 07:00 Resp 24 02/20/21 07:00 BP 148/53 02/20/21 07:00 Pulse Ox 87 L 02/20/21 06:00 Intake & Output 02/19/21 02/20/21 02/20/21 18:59 06:59 18:59 Intake Total 4556.98 1889.231 205 Output Total 420 255 20 Balance 4136.98 1634.231 185 Weight 108.7 kg Intake: IV 3786 936 78 .9NS 1000 Pressure bag 36 36 3 Sodium Chloride 0.9% 1, 750 900 75 000 ml @ 75 mls/hr IV . [id number] [facility] Rx#:[id number] Sodium Chloride 0.9% 1, 2000 000 ml @ 999 mls/hr IV . Q1H1M [facility] Rx#:[id number] Intake, IV Titration 246.98 539.231 100 Amount Cisatracurium 200 mg In 0 69.490 Sodium Chloride 0.9% 180 ml @ 1 MCG/KG/MIN 5.987 mls/hr IV .Q24H [facility] Rx#: [id number] Norepinephrine 8 mg In 87.041 Sodium Chloride 0.9% 250 ml @ 0.05 MCG/KG/MIN 10. 362 mls/hr IV .Q24H [facility] Rx#:[id number] propofoL 1,000 mg In 246.98 382.700 100 Empty Bag 1 bag @ Titrate IV .Q0M [facility] Rx#: [id number] Oral 200 Tube Feeding 324 324 27 Other 90 Output: Urine 420 255 20 Other: Voiding Method Indwelling Catheter Indwelling Catheter ABP, PAP, CO, CI - Last Documented Arterial Blood Pressure 122/44 - Exam Physical Exam: Revealed a 65-year-old male intubated mechanically ventilated Head: Atraumatic, normocephalic. Endotracheal tube and orogastric tubes are intact. HEENT:[Neck is supple.] [No neck masses.] [No thyromegaly.] [No JVD.] PERRLA, EOMI, nonicteric. Chest: [Symmetrical chest expansion crackles and rhonchi bilaterally. Cardiac Exam: [Normal S1 and S2, no S3 gallop, no murmur.] Abdomen: Obese, [Soft, nontender, no megaly, no rebound, no guarding, normal bowel sounds.] Extremities: [No clubbing, trace of bipedal edema, no cyanosis. Neurological Exam: Could not assess, patient is sedated and paralyzed. Skin: No rashes. Psychiatric: Could not assess. - Labs CBC & Chem 7: 02/20/21 03:45 02/20/21 03:45 Labs: Abnormal Lab Results - Last 24 Hours (Table) 02/19/21 02/19/2121 Range/Units 12:42 23:54 03:45 RBC (4.30-5.90) m/uL Hgb (13.0-17.5) gm/dL MCV (80.0-100.0) fL RDW (11.5-15.5) % Neutrophils # (1.3-7.7) k/uL Lymphocytes # (1.0-4.8) k/uL D-Dimer (<0.60) mg/L FEU ABG pH (7.35-7.45) ABG pCO2 (35-45) mmHg ABG pO2 (83-108) mmHg ABG HCO3 (21-25) mmol/L ABG Total CO2 (19-24) mmol/L ABG O2 Saturation (94-97) % Potassium 6.1 H* (3.5-5.1) mmol/L BUN 99 H (9-20) mg/dL Creatinine 4.15 H (0.66-1.25) mg/dL Glucose 127 H (74-99) mg/dL POC Glucose (mg/dL) 134 H 134 H (75-99) mg/dL ALT 94 H (4-49) U/L Lactate Dehydrogenase 1032 H (313-618) U/L C-Reactive Protein 2.0 H (<1.0) mg/dL Total Protein 5.4 L (6.3-8.2) g/dL Albumin 2.9 L (3.5-5.0) g/dL 02/20/21 02/20/21 02/20/21 Range/Units 03:45 03:45 04:35 RBC 3.92 L (4.30-5.90) m/uL Hgb 12.9 L (13.0-17.5) gm/dL MCV 103.0 H (80.0-100.0) fL RDW 15.6 H (11.5-15.5) % Neutrophils # 8.0 H (1.3-7.7) k/uL Lymphocytes # 0.8 L (1.0-4.8) k/uL D-Dimer 3.36 H (<0.60) mg/L FEU ABG pH 7.18 L* (7.35-7.45) ABG pCO2 75 H* (35-45) mmHg ABG pO2 69 L (83-108) mmHg ABG HCO3 28 H (21-25) mmol/L ABG Total CO2 30 H (19-24) mmol/L ABG O2 Saturation 92.9 L (94-97) % Potassium (3.5-5.1) mmol/L BUN (9-20) mg/dL Creatinine (0.66-1.25) mg/dL Glucose (74-99) mg/dL POC Glucose (mg/dL) (75-99) mg/dL ALT (4-49) U/L Lactate Dehydrogenase (313-618) U/L C-Reactive Protein (<1.0) mg/dL Total Protein (6.3-8.2) g/dL Albumin (3.5-5.0) g/dL Microbiology - Last 24 Hours (Table) 02/16/21 17:33 Gram Stain - Final Sputum Sputum Culture - Final Staphylococcus aureus Dianne albicans 02/16/21 08:05 Blood Culture - Preliminary Blood No Growth after 72 hours Assessment and Plan Assessment: Impression: Acute hypoxic failure secondary to COVID-19 pneumonia and ARDS. Elevated inflammatory markers secondary to above E coli urinary tract infection on cefepime Troponin leak. Former smoker. Elevated liver enzymes secondary to COVID-19 pneumonia and infection Acute kidney injury Severe cardiomyopathy and LV dysfunction with ejection fraction of 20%. Recommendation: Continue ventilatory support. Continue sedation and paralysis. Continue antibiotics/cefepime. Continue nutritional support. Continue the vitamin cocktail. Patient received convalescent plasma and toci Continue to monitor renal profile being followed by nephrology. Patient had poor tolerance to dobutamine to improve cardiac output. As it was discontinued Continue GI and DVT prophylaxis. Prognosis remains extremely poor and guarded, critical care time is over 30 minutes
[2021-02-20 10:48] LABS: Ferritin 479.2 ng/mL (22.0-322.0)
[2021-02-20] MEDS: METOPROLOL TARTRATE 25 MG TAB PO SCH ×2 (12:01→21:15)
[2021-02-20 12:26] LABS: Glucose,Whole Blood 119 mg/dL (75-99)
[2021-02-20] MEDS ORDERED: DOPamine DRIP 800 MG in WATER FOR INJECTION 1 250ML.BAG IV SCH (14:00)
[2021-02-20] MEDS ORDERED: DEXTROSE 50% SYRINGE 50 ML IVP STA ×2 (14:03→21:12)
[2021-02-20] MEDS: FUROSEMIDE 100 MG in SODIUM CHLORIDE 0.9% 90 ML IV SCH ×2 (14:20→22:42)
[2021-02-20] MEDS ORDERED: HEPARIN SODIUM 1,000 UN/ML (10ML VL) ONE (15:00)
[2021-02-20] MEDS ORDERED: LIDOCAINE 1% INJ 10MG/ML (20 ML MDV) ONE (15:00)
--- NOTE | 2021-02-20 15:41 | PN ---
PROGRESS NOTE Patient is seen for followup for acute kidney injury. Patient's renal function has deteriorated overnight with worsening urine output. He also is hyperkalemic. His potassium has been staying at about 6.1 to 5.8 mEq/L. He had responded to Lasix previously, but at this time urine output has dropped to about 10 to 5 mL/hour. Blood pressure is slightly on the lower side. Patient's ejection fraction has been 20% to 25%. It appears that he was tried on dobutamine earlier but had developed severe tachycardia. Therefore it was discontinued. No active bleeding noted at this time. The patient remains on the vent. PHYSICAL EXAMINATION: Blood pressure is noted to be 124/51, heart rate 82 per minute. Patient is afebrile. He remains on the vent. He is not examined. Case is discussed with nursing staff. He has edema. He is tolerating tube feeds. He is sedated and on the vent. LABS: Sodium of 139, potassium 6.1 this morning, chloride 106, BUN 99, serum creatinine 4.15, hemoglobin 12.9 g/dL. ASSESSMENT: 1. Acute kidney injury, acute tubular necrosis, currently worsening with decrease in urine output, worsening renal function and persistent hyperkalemia. Patient will need to start dialysis if his urine output does not pickling solution maker. I will add dopamine if his heart rate is able to tolerate it and will also start a Lasix drip. 2. Acute hypoxic respiratory failure, currently on the vent. 3. COVID pneumonia with hypoxic respiratory failure, maintained on Decadron. 4. Hyperkalemia associated with acute kidney injury, status post treatment with IV insulin and D50. If there is no further improvement in urine output, patient will need to be dialyzed. 5. Hypotension secondary to sepsis. 6. Escherichia coli urinary tract infection. 7. Coagulase-negative staphylococcus bacteremia. 8. Pneumonia with sputum culture growing Staphylococcus aureus as well as COVID pneumonia. PLAN: Start Lasix drip. Add dopamine if patient is able to tolerate it, and if the urine output does not pickling solution maker, I will start the patient on dialysis. MMODL / IJN: [id number] /
[2021-02-20 18:55] LABS: Glucose,Whole Blood 116 mg/dL (75-99)
[2021-02-21] MEDS: DOBUTamine DRIP 500 MG in DEXTROSE/WATER 1 250ML.BAG IV SCH (00:59)
[2021-02-21] MEDS: fentaNYL (PF). 1,000 MCG in SODIUM CHLORIDE 0.9% 80 ML IV SCH ×2 (01:50→18:39)
[2021-02-21 04:31] LABS: ABG Base Excess -2.5 mmol/L; ABG HCO3 27 mmol/L (21-25); ABG Oxygen Saturation 91.4 % (94-97); ABG PO2 66 mmHg (83-108); ABG TCO2 29 mmol/L (19-24); Allen Test Performed? Yes
[2021-02-21 04:34] LABS: ABG PH 7.12 (7.35-7.45)
[2021-02-21 04:35] LABS: ABG PCO2 84 mmHg (35-45)
[2021-02-21 05:47] LABS: Basophils % (A) 0 %; Eosinophils % (A) 0 %; HCT 37.8 % (39.0-53.0); HGB 12.3 gm/dL (13.0-17.5); Hypochromasia Marked; Lymphocytes # (A) 0.6 k/uL (1.0-4.8); Lymphocytes % (A) 7 %; MCH 33.6 pg (25.0-35.0); MCHC 32.7 g/dL (31.0-37.0); Macrocytosis Moderate; Mean Platelet Volume 8.5; Monocytes # (A) 0.6 k/uL (0-1.0); Monocytes % (A) 7 %; Neutrophils # (A) 7.7 k/uL (1.3-7.7); Platelet Count 165 k/uL (150-450); Poikilocytosis Slight; RBC 3.67 m/uL (4.30-5.90); WBC 9.1 k/uL (3.8-10.6)
[2021-02-21 06:17] LABS: Calcium 8.6 mg/dL (8.4-10.2)
[2021-02-21] MEDS: SODIUM CHLORIDE 0.9% 1,000 ML IV SCH (06:21)
[2021-02-21 06:52] LABS: Potassium 6.1 mmol/L (3.5-5.1)
[2021-02-21] MEDS ORDERED: INSULIN REGULAR 100 UNIT/ML VIAL IV ONE (07:15)
--- NOTE | 2021-02-21 07:22 | XR ---
EXAMINATION TYPE: XR chest 1V portable DATE OF EXAM: 02/21/2021 Comparison: 02/20/2021 Clinical History: 65-year-old male covid pneumonia Findings: ETT and NG tubes satisfactory. Heart is unenlarged. Hyperinflation. Diffuse interstitial opacities al elmer with patchy and confluent bilateral lung opacities especially in the peripheral and lower lungs. Left subclavian CVC tip at the lower SVC. Impression: COPD and stable bilateral airspace disease especially in the periphery and lower lungs.
[2021-02-21] MEDS ORDERED: DEXTROSE 50% SYRINGE 50 ML IVP ONE (07:42)
[2021-02-21] MEDS: DEXAMETHASONE SOD PHOSPHATE 10 MG/ML 1 ML VIAL IV SCH ×2 (09:00→19:48)
[2021-02-21] MEDS: CHLORHEXIDINE GLUCONATE 15 ML CUP MUCOUS MEM SCH ×2 (09:00→19:48)
[2021-02-21] MEDS: FAMOTIDINE 20 MG/2 ML VIAL IV SCH (09:00)
[2021-02-21] MEDS: ENOXAPARIN 60 MG/0.6 ML SYRINGE SQ SCH (09:01)
--- NOTE | 2021-02-21 09:29 | XR ---
EXAMINATION TYPE: XR chest 1V portable DATE OF EXAM: 02/21/2021 CLINICAL HISTORY: OG tube placement. TECHNIQUE: 2 AP portable frontal semiupright views of the chest are obtained. COMPARISON: Chest x-ray from earlier today an older studies FINDINGS: Better visualization of tip of orogastric tube below diaphragm. Side-port at level of diap hragmatic hiatus, consider further advancing 2 to 3 cm to be in more ideal position. Stable endotracheal tube and left subclavian central venous catheter. Persistent bilateral reticulonodular increased opacities with more confluent appearance in the lower lungs. Cardiac silhouette size is stable and mildly enlarged. Osseous structures remain intact. IMPRESSION: As above.
[2021-02-21] MEDS: ZINC SULFATE 220 MG CAP PO SCH (09:43)
[2021-02-21] MEDS: ASCORBIC ACID 500 MG TAB PO SCH (09:43)
[2021-02-21] MEDS: MIDODRINE 5 MG TAB PO SCH ×3 (09:43→17:30)
[2021-02-21] MEDS: METOPROLOL TARTRATE 25 MG TAB PO SCH ×2 (09:44→19:48)
[2021-02-21] MEDS: CHOLECALCIFEROL 25 MCG (1000 IU) TABLET PO SCH (09:44)
[2021-02-21] MEDS: ASPIRIN 81 MG PO SCH (09:44)
[2021-02-21] MEDS: CISATRACURIUM 200 MG in SODIUM CHLORIDE 0.9% 180 ML IV SCH (10:05)
--- NOTE | 2021-02-21 11:06 | P.PN ---
Subjective Progress Note Date: 02/18/21 Principal diagnosis: Acute bilateral Covid pneumonia Acute hypoxic respiratory failure secondary to above. on mechanical ventilator This is a pleasant 65 years old male with no significant past medical history who presents because of one-week history of dyspnea associated with high fever at 101.3 at home. Associated with coughing. He feels generally weak but no significant chest pain. Patient dyspnea was getting more worse and he was not feeling well so family brought him to the hospital. His symptoms started about 2 weeks Patient is poor historian and is oxygen saturation was troponin while he was on high flow nasal cannula and he has to be placed on BiPAP and sent to the ICU from emergency room Patient is ex-smoker, he quit a few months ago. Used to smoke 2 packs per day. Patient is tachypneic with a breathing rate of 30, he is saturating any to on 60 L/m of oxygen via high flow cannula. A febrile. CBC, and BMP are unremarkable. Liver enzymes slightly elevated with AST 100 and ALT 86 and normal bilirubin of 0.7. D-dimer is elevated at 5.7. Elevated troponin 0.03, 0.06, 0.06 Chronic varus detected CTA of the chest: No evidence of PE. Extensive bilateral pneumonia, emphysema EKG showing sinus tachycardia at 107 with the bundle branch block and QTC 523 Chest x-ray: Bilateral infiltrates Ultrasound of the lower extremities is negative for DVT on both sides In ED he was started on Lovenox, normal saline at 75 mL/h, one-time dose of tocilizumab per pulmonary team , vitamin C, zinc and vitamin D. Patient has been evaluated by pulmonary service, he was started on BiPAP and admitted to the ICU 02/11/2021 Patient remains in the ICU, monitored closely for his hypoxia, he needs BiPAP most of the time of continuously. Has increased inflammatory markers with ferritin 1519, LDH 2339 and selective 1438. D-dimer is elevated at 5.7 and he is placed on therapeutic dose of Lovenox. Chest x-ray showing bilateral infiltrate Remains on dexamethasone and vitamin cocktail for Covid, he also received 1 dose of tocilizumab and convalescent plasma Also he is on metoprolol and Lovenox 50 mg twice a day 02/12/2021 Patient seen and examined in the ICU for Covid pneumonia, this morning his respiratory status deteriorated and he had to be intubated and placed on mechanical ventilation, also blood pressure was troponin even with boluses of normal saline and he has to be placed on Levophed at 0.05. Vent setting showing PEEP 10, respiratory rate 30, dental: 450 and FiO2 is 100%. Dictated hydrogenase almost doubled to 4124 and C-reactive protein is high at 20. D-dimer more than 34. Liver enzymes slightly elevated. She remains on metoprolol 25 mg, Lovenox 50 mg dexamethasone, vitamin C, D and zinc. Also he is started on small dose of Levophed. And metoprolol 02/14/2021 Patient is currently in MICU and remains intubated. Patient was intubated on 02/12/2021. Currently on mechanical ventilator and is on sedation. Chest x-ray showed COPD with borderline heart size. Diffuse interstitial opacities and more confluent bibasilar airspace disease, right greater than left, (without significant change. Laboratory data showed D-dimer 24.99, potassium 5.2, bicarb 34 BUN 24 creatinine 0.79 calcium 8.1 ferritin 1008.5 AST 91 ALT 208 LDH 2000 CPK 194, CRP 14.0. Patient is being continued on dexamethasone 6 mg IV daily, Lovenox 50 mg subcu twice daily and multivitamins. Pulmonary is on board. Patient is tachypneic. Afebrile. 02/15/2021 Patient is currently in MICU remains intubated and also on sedation and paralyzed. Assist control 500, respiratory 32 and PEEP of 17 and FiO2 30%. Chest x-ray showed mild improvement of diffuse increased lung markings. Patient is tachypneic. Blood pressure is stable. Patient is afebrile. Laboratory data showed diabetes 11.7 hemoglobin 16.1 MCV 101.1 and platelets 178 ABG showed pH of 7.3 PCO2 73 and PO2 53 Sodium 137 potassium 5.6 bicarb is 34 BUN 34 and creatinine 0.9 AST is 57 ALT from 58 LDH 1693 CRP 10.3 Patient is on enteral feeding. 02/16/2021 Patient is currently MICU on mechanical L also on sedation and paralyzed. Currently on assist control 100 PEEP of 17 and FiO2 50%. ABG showed pH of 7.31, PCO2 68 and PO2 60 Chest x-ray showed bibasilar infiltrates. Findings are improving. Laboratory showed WBC 12.7 hemoglobin 15.3 and platelets 167 D-dimer is 9.64 sodium 137 potassium 5.1 bicarb is 34 BUN 59 creatinine 1.52 blood sugar is 150 AST 61 ALT 144 LDH 1363 total protein 5.9 albumin 3.1 and procalcitonin 1.25 Patient is being continued on dexamethasone, Lovenox twice daily, multivitamins. Critical care team is on board. 02/17/2021 Patient currently in the MICU and remains on mechanical ventilator. Sedated and paralyzed. Assist-control 450 respiratory rate 32 PEEP of 17 and FiO2 50%. Chest x-ray showed COPD and continued bibasilar airspace disease and background increase in interstitial opacity. Laboratory data showed WBC 13.6 hemoglobin 14.1 and platelets 162 D-dimer is 5.41 pH of 7.27, PCO2 82 and PO2 56 Sodium 138 potassium 5.5 BUN 59 and creatinine 1.21 AST 65 ALT 143 LDH 1230 CRP 6.5 and pro calcitonin level of 0.73 Patient was started on cefepime and vancomycin. 02/18/2021 Patient is currently in the MICU. Currently sedated and paralyzed. Patient became hypoxic and decompensated with sedation holiday and was put back on sedation and currently paralyzed. Assist-control 450 PEEP of 17 and FiO2 50%. Chest x-ray showed stable findings. T-max 100.4 Laboratory data showed LDH 1169, CRP 1.1 and the creatinine went up to 1.3 to. WBC 11.8. Otherwise patient is being continued on Decadron 6 mg IV every 12 and Lovenox 50 mg every 12. Patient has been afebrile. Urine culture showed gram-negative bacilli and is currently getting cefepime. Blood cultures grew gram-positive cocci and is on vancomycin until final is nothing blood cultures. Pulmonary is on board. Current medications reviewed. Objective - Vital Signs Vital signs: Vital Signs Temp 99.1 F 02/18/21 12:00 Pulse 105 H 02/18/21 16:00 Resp 32 H 02/18/21 16:00 BP 108/60 02/18/21 16:00 Pulse Ox 90 L 02/18/21 16:00 Intake & Output 02/17/21 02/18/21 02/18/21 18:59 06:59 18:59 Intake Total 9399.004 9434.781 502.682 Output Total 1030 825 650 Balance 36.262 185.781 -147.318 Weight 104.9 kg 106.1 kg Intake: IV 299 140 167 .9NS 209 110 140 Pressure bag 90 30 27 Intake, IV Titration 416.262 513.781 200.682 Amount Cefepime 2 gm In Sodium 100 100 Chloride 0.9% 100 ml @ 25 mls/hr IVPB Q8HR [facility] Rx# :[id number] Cisatracurium 200 mg In 214.898 141.505 Sodium Chloride 0.9% 180 ml @ 1 MCG/KG/MIN 5.987 mls/hr IV .Q24H [facility] Rx#: [id number] propofoL 1,000 mg In 101.364 372.276 100.682 Empty Bag 1 bag @ Titrate IV .Q0M [facility] Rx#: [id number] Tube Feeding 351 297 135 Other 60 Output: Urine 1030 825 650 Other: Voiding Method Indwelling Catheter Indwelling Catheter Indwelling Catheter ABP, PAP, CO, CI - Last Documented Arterial Blood Pressure 92/45 - Exam - Exam -GENERAL: The patient is intubated and sedated . HEENT: Pupils are round and equally reacting to light. No scleral icterus. No conjunctival pallor. Normocephalic, atraumatic. No thyromegaly. CARDIOVASCULAR: S1 and S2 present. No murmurs, rubs, or gallops. PULMONARY: Chest is clear to auscultation, no wheezing or crackles. ABDOMEN: Soft, nontender, nondistended, normoactive bowel sounds. No palpable organomegaly. MUSCULOSKELETAL: No joint swelling or deformity. EXTREMITIES: No cyanosis, clubbing, or pedal edema. NEUROLOGICAL: Gross neurological examination did not reveal any focal deficits. SKIN: No rashes. no petechiae. - Labs CBC & Chem 7: 02/21/21 04:46 02/21/21 04:46 Labs: Abnormal Lab Results - Last 24 Hours (Table) 02/17/21 02/17/21 02/17/21 Range/Units 05:00 17:14 23:35 WBC (3.8-10.6) k/uL MCV (80.0-100.0) fL MCHC (31.0-37.0) g/dL RDW (11.5-15.5) % Neutrophils # (1.3-7.7) k/uL Lymphocytes # (1.0-4.8) k/uL ABG pH (7.35-7.45) ABG pCO2 (35-45) mmHg ABG pO2 (83-108) mmHg ABG HCO3 (21-25) mmol/L ABG Total CO2 (19-24) mmol/L ABG O2 Saturation (94-97) % Potassium (3.5-5.1) mmol/L Carbon Dioxide (22-30) mmol/L BUN (9-20) mg/dL Creatinine (0.66-1.25) mg/dL Glucose (74-99) mg/dL POC Glucose (mg/dL) 129 H 158 H (75-99) mg/dL ALT (4-49) U/L Lactate Dehydrogenase (313-618) U/L C-Reactive Protein (<1.0) mg/dL Total Protein (6.3-8.2) g/dL Albumin (3.5-5.0) g/dL Procalcitonin 0.73 H (0.02-0.09) ng/mL 02/18/21 02/18/21 02/18/21 Range/Units 04:08 04:08 04:15 WBC 11.8 H (3.8-10.6) k/uL MCV 103.9 H (80.0-100.0) fL MCHC 30.3 L (31.0-37.0) g/dL RDW 15.6 H (11.5-15.5) % Neutrophils # 10.4 H (1.3-7.7) k/uL Lymphocytes # 0.8 L (1.0-4.8) k/uL ABG pH 7.28 L (7.35-7.45) ABG pCO2 79 H* (35-45) mmHg ABG pO2 53 L* (83-108) mmHg ABG HCO3 37 H (21-25) mmol/L ABG Total CO2 39 H (19-24) mmol/L ABG O2 Saturation 85.0 L (94-97) % Potassium 5.6 H (3.5-5.1) mmol/L Carbon Dioxide 36 H (22-30) mmol/L BUN 56 H (9-20) mg/dL Creatinine 1.32 H (0.66-1.25) mg/dL Glucose 148 H (74-99) mg/dL POC Glucose (mg/dL) (75-99) mg/dL ALT 137 H (4-49) U/L Lactate Dehydrogenase 1169 H (313-618) U/L C-Reactive Protein 1.1 H (<1.0) mg/dL Total Protein 5.8 L (6.3-8.2) g/dL Albumin 3.1 L (3.5-5.0) g/dL Procalcitonin (0.02-0.09) ng/mL 02/18/21 Range/Units 05:46 WBC (3.8-10.6) k/uL MCV (80.0-100.0) fL MCHC (31.0-37.0) g/dL RDW (11.5-15.5) % Neutrophils # (1.3-7.7) k/uL Lymphocytes # (1.0-4.8) k/uL ABG pH (7.35-7.45) ABG pCO2 (35-45) mmHg ABG pO2 (83-108) mmHg ABG HCO3 (21-25) mmol/L ABG Total CO2 (19-24) mmol/L ABG O2 Saturation (94-97) % Potassium (3.5-5.1) mmol/L Carbon Dioxide (22-30) mmol/L BUN (9-20) mg/dL Creatinine (0.66-1.25) mg/dL Glucose (74-99) mg/dL POC Glucose (mg/dL) 132 H (75-99) mg/dL ALT (4-49) U/L Lactate Dehydrogenase (313-618) U/L C-Reactive Protein (<1.0) mg/dL Total Protein (6.3-8.2) g/dL Albumin (3.5-5.0) g/dL Procalcitonin (0.02-0.09) ng/mL Microbiology - Last 24 Hours (Table) 02/16/21 08:05 Blood Culture - Preliminary Blood No Growth after 48 hours 02/16/21 17:33 Gram Stain - Preliminary Sputum Sputum Culture - Preliminary 02/16/21 15:23 Urine Culture - Preliminary Urine,Voided Gram Neg Bacilli 02/16/21 08:15 Blood Culture Gram Stain - Preliminary Blood Blood Culture - Preliminary Coagulase Negative Staph Assessment and Plan Assessment: Acute bilateral Covid pneumonia ARDS / Acute hypoxic respiratory failure secondary to above. on mechanical ventilator Elevated inflammatory markers E. coli urinary tract infection Gram-positive cocci bacteremia Severe cardiomyopathy EF: 20-25% Elevated troponin, secondary to Covid infection. Elevated d-dimer, with no evidence of PE on CTA of the chest Mildly elevated liver enzymes, secondary to covid Elevated lactic acid, came back to normal Emphysema Plan: This is a pleasant 65 years old male who presents with Covid. Non-STEMI Patient received Tocilizumab and 1 unit of convalescent plasma. Patient does not make much improvement for the last few days. Continue with vitamin C, vitamin D and zinc. Continue with steroids and lovenox BID Due to elevated D-dimer level.. Pulmonary and cardiology is following. Continue with antibiotics in the form of cefepime and vancomycin. Labs and medication were reviewed.. Continue with symptomatic treatment. Resume home medication. Monitor lytes and vitals. DVT and GI prophylaxis. Further recommendations depends on the clinical course of the patient DVT prophylaxis: Subcutaneous Lovenox GI Prophylaxis: Pepcid PT/OT: Pending Prognosis is guarded Time with Patient: Greater than 30
--- NOTE | 2021-02-21 11:10 | P.PN ---
Subjective Progress Note Date: 02/19/21 Principal diagnosis: Acute bilateral Covid pneumonia Acute hypoxic respiratory failure secondary to above. on mechanical ventilator This is a pleasant 65 years old male with no significant past medical history who presents because of one-week history of dyspnea associated with high fever at 101.3 at home. Associated with coughing. He feels generally weak but no significant chest pain. Patient dyspnea was getting more worse and he was not feeling well so family brought him to the hospital. His symptoms started about 2 weeks Patient is poor historian and is oxygen saturation was troponin while he was on high flow nasal cannula and he has to be placed on BiPAP and sent to the ICU from emergency room Patient is ex-smoker, he quit a few months ago. Used to smoke 2 packs per day. Patient is tachypneic with a breathing rate of 30, he is saturating any to on 60 L/m of oxygen via high flow cannula. A febrile. CBC, and BMP are unremarkable. Liver enzymes slightly elevated with AST 100 and ALT 86 and normal bilirubin of 0.7. D-dimer is elevated at 5.7. Elevated troponin 0.03, 0.06, 0.06 Chronic varus detected CTA of the chest: No evidence of PE. Extensive bilateral pneumonia, emphysema EKG showing sinus tachycardia at 107 with the bundle branch block and QTC 523 Chest x-ray: Bilateral infiltrates Ultrasound of the lower extremities is negative for DVT on both sides In ED he was started on Lovenox, normal saline at 75 mL/h, one-time dose of tocilizumab per pulmonary team , vitamin C, zinc and vitamin D. Patient has been evaluated by pulmonary service, he was started on BiPAP and admitted to the ICU 02/11/2021 Patient remains in the ICU, monitored closely for his hypoxia, he needs BiPAP most of the time of continuously. Has increased inflammatory markers with ferritin 1519, LDH 2339 and selective 1438. D-dimer is elevated at 5.7 and he is placed on therapeutic dose of Lovenox. Chest x-ray showing bilateral infiltrate Remains on dexamethasone and vitamin cocktail for Covid, he also received 1 dose of tocilizumab and convalescent plasma Also he is on metoprolol and Lovenox 50 mg twice a day 02/12/2021 Patient seen and examined in the ICU for Covid pneumonia, this morning his respiratory status deteriorated and he had to be intubated and placed on mechanical ventilation, also blood pressure was troponin even with boluses of normal saline and he has to be placed on Levophed at 0.05. Vent setting showing PEEP 10, respiratory rate 30, dental: 450 and FiO2 is 100%. Dictated hydrogenase almost doubled to 4124 and C-reactive protein is high at 20. D-dimer more than 34. Liver enzymes slightly elevated. She remains on metoprolol 25 mg, Lovenox 50 mg dexamethasone, vitamin C, D and zinc. Also he is started on small dose of Levophed. And metoprolol 02/14/2021 Patient is currently in MICU and remains intubated. Patient was intubated on 02/12/2021. Currently on mechanical ventilator and is on sedation. Chest x-ray showed COPD with borderline heart size. Diffuse interstitial opacities and more confluent bibasilar airspace disease, right greater than left, (without significant change. Laboratory data showed D-dimer 24.99, potassium 5.2, bicarb 34 BUN 24 creatinine 0.79 calcium 8.1 ferritin 1008.5 AST 91 ALT 208 LDH 2000 CPK 194, CRP 14.0. Patient is being continued on dexamethasone 6 mg IV daily, Lovenox 50 mg subcu twice daily and multivitamins. Pulmonary is on board. Patient is tachypneic. Afebrile. 02/15/2021 Patient is currently in MICU remains intubated and also on sedation and paralyzed. Assist control 500, respiratory 32 and PEEP of 17 and FiO2 30%. Chest x-ray showed mild improvement of diffuse increased lung markings. Patient is tachypneic. Blood pressure is stable. Patient is afebrile. Laboratory data showed diabetes 11.7 hemoglobin 16.1 MCV 101.1 and platelets 178 ABG showed pH of 7.3 PCO2 73 and PO2 53 Sodium 137 potassium 5.6 bicarb is 34 BUN 34 and creatinine 0.9 AST is 57 ALT from 58 LDH 1693 CRP 10.3 Patient is on enteral feeding. 02/16/2021 Patient is currently MICU on mechanical L also on sedation and paralyzed. Currently on assist control 100 PEEP of 17 and FiO2 50%. ABG showed pH of 7.31, PCO2 68 and PO2 60 Chest x-ray showed bibasilar infiltrates. Findings are improving. Laboratory showed WBC 12.7 hemoglobin 15.3 and platelets 167 D-dimer is 9.64 sodium 137 potassium 5.1 bicarb is 34 BUN 59 creatinine 1.52 blood sugar is 150 AST 61 ALT 144 LDH 1363 total protein 5.9 albumin 3.1 and procalcitonin 1.25 Patient is being continued on dexamethasone, Lovenox twice daily, multivitamins. Critical care team is on board. 02/17/2021 Patient currently in the MICU and remains on mechanical ventilator. Sedated and paralyzed. Assist-control 450 respiratory rate 32 PEEP of 17 and FiO2 50%. Chest x-ray showed COPD and continued bibasilar airspace disease and background increase in interstitial opacity. Laboratory data showed WBC 13.6 hemoglobin 14.1 and platelets 162 D-dimer is 5.41 pH of 7.27, PCO2 82 and PO2 56 Sodium 138 potassium 5.5 BUN 59 and creatinine 1.21 AST 65 ALT 143 LDH 1230 CRP 6.5 and pro calcitonin level of 0.73 Patient was started on cefepime and vancomycin. 02/18/2021 Patient is currently in the MICU. Currently sedated and paralyzed. Patient became hypoxic and decompensated with sedation holiday and was put back on sedation and currently paralyzed. Assist-control 450 PEEP of 17 and FiO2 50%. Chest x-ray showed stable findings. T-max 100.4 Laboratory data showed LDH 1169, CRP 1.1 and the creatinine went up to 1.3 to. WBC 11.8. Otherwise patient is being continued on Decadron 6 mg IV every 12 and Lovenox 50 mg every 12. Patient has been afebrile. Urine culture showed gram-negative bacilli and is currently getting cefepime. Blood cultures grew gram-positive cocci and is on vancomycin until final is nothing blood cultures. Pulmonary is on board. 02/19/2021 Patient is currently on mechanical ventilator and paralyzed. Assist-control 450, PEEP of 17 and FiO2 60%. Chest x-ray showed diffuse bilateral pulmonary infiltrates mostly in the lung bases. Laboratory data showed WBC 12.4 hemoglobin 13.1 and platelets 86 D-dimer 4.03 Potassium 5.8, BUN 80 and creatinine 2.5, pro calcitonin 0.88, LDH 898, CRP 1.6 and alk phos 108 at length patient is being continued on DEXA was on, Lovenox twice a day and antibiotics in the form of cefepime for E. coli urinary tract infection. Follow-up repeat blood cultures. Vancomycin has been discontinued.. Patient was seen by nephrology and added Midodrin 3 times a day. Critical care team and is on board. Current medications reviewed. Objective - Vital Signs Vital signs: Vital Signs Temp 98.5 F 02/19/21 12:00 Pulse 98 02/19/21 12:00 Resp 27 H 02/19/21 12:00 BP 141/63 02/19/21 12:00 Pulse Ox 90 L 02/19/21 12:00 Intake & Output 02/18/21 02/19/21 02/19/21 18:59 06:59 18:59 Intake Total 432.857 7702.620 3826.98 Output Total 800 390 55 Balance 23.372 309.060 2700.98 Weight 104.4 kg Intake: IV 896 853 9376 .9NS 484 958 9675 Pressure bag 36 33 18 Sodium Chloride 0.9% 1, 300 000 ml @ 75 mls/hr IV . [id number] REPLACED BY [facility] Rx#:[id number] Sodium Chloride 0.9% 1, 2000 000 ml @ 999 mls/hr IV . Q1H1M [facility] Rx#:[id number] Intake, IV Titration 401.372 477.620 246.98 Amount Cefepime 2 gm In Sodium 200 Chloride 0.9% 100 ml @ 25 mls/hr IVPB Q8HR REPLACED BY [facility] Rx# :[id number] Cisatracurium 200 mg In 277.620 0 Sodium Chloride 0.9% 180 ml @ 1 MCG/KG/MIN 5.987 mls/hr IV .Q24H REPLACED BY [facility] Rx#: [id number] propofoL 1,000 mg In 201.372 200 246.98 Empty Bag 1 bag @ Titrate IV .Q0M REPLACED BY [facility] Rx#: [id number] Oral 100 Tube Feeding 216 297 162 Other 60 Output: Urine 800 390 55 Other: Voiding Method Indwelling Catheter Indwelling Catheter ABP, PAP, CO, CI - Last Documented Arterial Blood Pressure 139/46 - Exam - Exam -GENERAL: The patient is intubated and sedated . HEENT: Pupils are round and equally reacting to light. No scleral icterus. No conjunctival pallor. Normocephalic, atraumatic. No thyromegaly. CARDIOVASCULAR: S1 and S2 present. No murmurs, rubs, or gallops. PULMONARY: Chest is clear to auscultation, no wheezing or crackles. ABDOMEN: Soft, nontender, nondistended, normoactive bowel sounds. No palpable organomegaly. MUSCULOSKELETAL: No joint swelling or deformity. EXTREMITIES: No cyanosis, clubbing, or pedal edema. NEUROLOGICAL: Gross neurological examination did not reveal any focal deficits. SKIN: No rashes. no petechiae. - Labs CBC & Chem 7: 02/21/21 04:46 02/21/21 04:46 Labs: Abnormal Lab Results - Last 24 Hours (Table) 02/18/21 02/18/21 02/19/21 Range/Units 17:37 23:53 04:00 WBC (3.8-10.6) k/uL RBC (4.30-5.90) m/uL MCV (80.0-100.0) fL Neutrophils # (1.3-7.7) k/uL Lymphocytes # (1.0-4.8) k/uL D-Dimer (<0.60) mg/L FEU ABG pH (7.35-7.45) ABG pCO2 (35-45) mmHg ABG pO2 (83-108) mmHg ABG HCO3 (21-25) mmol/L ABG Total CO2 (19-24) mmol/L Potassium 5.8 H (3.5-5.1) mmol/L Carbon Dioxide 33 H (22-30) mmol/L BUN 80 H (9-20) mg/dL Creatinine 2.50 H (0.66-1.25) mg/dL Glucose 133 H (74-99) mg/dL POC Glucose (mg/dL) 143 H 176 H (75-99) mg/dL ALT 108 H (4-49) U/L Lactate Dehydrogenase 898 H (313-618) U/L C-Reactive Protein 1.6 H (<1.0) mg/dL Total Protein 5.3 L (6.3-8.2) g/dL Albumin 2.8 L (3.5-5.0) g/dL 02/19/21 02/19/21 02/19/21 Range/Units 04:00 04:00 05:36 WBC 12.4 H (3.8-10.6) k/uL RBC 3.99 L (4.30-5.90) m/uL MCV 103.2 H (80.0-100.0) fL Neutrophils # 10.6 H (1.3-7.7) k/uL Lymphocytes # 0.8 L (1.0-4.8) k/uL D-Dimer 4.03 H (<0.60) mg/L FEU ABG pH 7.23 L (7.35-7.45) ABG pCO2 77 H* (35-45) mmHg ABG pO2 78 L (83-108) mmHg ABG HCO3 32 H (21-25) mmol/L ABG Total CO2 35 H (19-24) mmol/L Potassium (3.5-5.1) mmol/L Carbon Dioxide (22-30) mmol/L BUN (9-20) mg/dL Creatinine (0.66-1.25) mg/dL Glucose (74-99) mg/dL POC Glucose (mg/dL) (75-99) mg/dL ALT (4-49) U/L Lactate Dehydrogenase (313-618) U/L C-Reactive Protein (<1.0) mg/dL Total Protein (6.3-8.2) g/dL Albumin (3.5-5.0) g/dL 02/19/21 Range/Units 12:42 WBC (3.8-10.6) k/uL RBC (4.30-5.90) m/uL MCV (80.0-100.0) fL Neutrophils # (1.3-7.7) k/uL Lymphocytes # (1.0-4.8) k/uL D-Dimer (<0.60) mg/L FEU ABG pH (7.35-7.45) ABG pCO2 (35-45) mmHg ABG pO2 (83-108) mmHg ABG HCO3 (21-25) mmol/L ABG Total CO2 (19-24) mmol/L Potassium (3.5-5.1) mmol/L Carbon Dioxide (22-30) mmol/L BUN (9-20) mg/dL Creatinine (0.66-1.25) mg/dL Glucose (74-99) mg/dL POC Glucose (mg/dL) 134 H (75-99) mg/dL ALT (4-49) U/L Lactate Dehydrogenase (313-618) U/L C-Reactive Protein (<1.0) mg/dL Total Protein (6.3-8.2) g/dL Albumin (3.5-5.0) g/dL Microbiology - Last 24 Hours (Table) 02/16/21 08:05 Blood Culture - Preliminary Blood No Growth after 72 hours 02/16/21 17:33 Gram Stain - Preliminary Sputum Sputum Culture - Preliminary Presumptive Staph aureus 02/16/21 08:15 Blood Culture Gram Stain - Final Blood Blood Culture - Final Coagulase Negative Staph 02/16/21 15:23 Urine Culture - Final Urine,Voided Escherichia coli Assessment and Plan Assessment: Acute bilateral Covid pneumonia ARDS / Acute hypoxic respiratory failure secondary to above. on mechanical ventilator Elevated inflammatory markers E. coli urinary tract infection Gram-positive cocci bacteremia. Coagulase-negative staph aureus. Acute kidney injury. Possible ATN Severe cardiomyopathy EF: 20-25% Elevated troponin, secondary to Covid infection. Elevated d-dimer, with no evidence of PE on CTA of the chest Mildly elevated liver enzymes, secondary to covid Elevated lactic acid, came back to normal Emphysema Plan: This is a pleasant 65 years old male who presents with Covid. Non-STEMI Patient received Tocilizumab and 1 unit of convalescent plasma. Patient does not make much improvement for the last few days. Continue with vitamin C, vitamin D and zinc. Continue with steroids and lovenox BID Due to elevated D-dimer level.. Pulmonary and cardiology is following. Continue with antibiotics in the form of cefepime. Labs and medication were reviewed.. Continue with symptomatic treatment. Resume home medication. Monitor lytes and vitals. DVT and GI prophylaxis. Further recommendations depends on the clinical course of the patient DVT prophylaxis: Subcutaneous Lovenox GI Prophylaxis: Pepcid PT/OT: Pending Prognosis is guarded Time with Patient: Greater than 30
--- NOTE | 2021-02-21 11:14 | P.PN ---
Subjective Progress Note Date: 02/20/21 Principal diagnosis: Acute bilateral Covid pneumonia Acute hypoxic respiratory failure secondary to above. on mechanical ventilator This is a pleasant 65 years old male with no significant past medical history who presents because of one-week history of dyspnea associated with high fever at 101.3 at home. Associated with coughing. He feels generally weak but no significant chest pain. Patient dyspnea was getting more worse and he was not feeling well so family brought him to the hospital. His symptoms started about 2 weeks Patient is poor historian and is oxygen saturation was troponin while he was on high flow nasal cannula and he has to be placed on BiPAP and sent to the ICU from emergency room Patient is ex-smoker, he quit a few months ago. Used to smoke 2 packs per day. Patient is tachypneic with a breathing rate of 30, he is saturating any to on 60 L/m of oxygen via high flow cannula. A febrile. CBC, and BMP are unremarkable. Liver enzymes slightly elevated with AST 100 and ALT 86 and normal bilirubin of 0.7. D-dimer is elevated at 5.7. Elevated troponin 0.03, 0.06, 0.06 Chronic varus detected CTA of the chest: No evidence of PE. Extensive bilateral pneumonia, emphysema EKG showing sinus tachycardia at 107 with the bundle branch block and QTC 523 Chest x-ray: Bilateral infiltrates Ultrasound of the lower extremities is negative for DVT on both sides In ED he was started on Lovenox, normal saline at 75 mL/h, one-time dose of tocilizumab per pulmonary team , vitamin C, zinc and vitamin D. Patient has been evaluated by pulmonary service, he was started on BiPAP and admitted to the ICU 02/11/2021 Patient remains in the ICU, monitored closely for his hypoxia, he needs BiPAP most of the time of continuously. Has increased inflammatory markers with ferritin 1519, LDH 2339 and selective 1438. D-dimer is elevated at 5.7 and he is placed on therapeutic dose of Lovenox. Chest x-ray showing bilateral infiltrate Remains on dexamethasone and vitamin cocktail for Covid, he also received 1 dose of tocilizumab and convalescent plasma Also he is on metoprolol and Lovenox 50 mg twice a day 02/12/2021 Patient seen and examined in the ICU for Covid pneumonia, this morning his respiratory status deteriorated and he had to be intubated and placed on mechanical ventilation, also blood pressure was troponin even with boluses of normal saline and he has to be placed on Levophed at 0.05. Vent setting showing PEEP 10, respiratory rate 30, dental: 450 and FiO2 is 100%. Dictated hydrogenase almost doubled to 4124 and C-reactive protein is high at 20. D-dimer more than 34. Liver enzymes slightly elevated. She remains on metoprolol 25 mg, Lovenox 50 mg dexamethasone, vitamin C, D and zinc. Also he is started on small dose of Levophed. And metoprolol 02/14/2021 Patient is currently in MICU and remains intubated. Patient was intubated on 02/12/2021. Currently on mechanical ventilator and is on sedation. Chest x-ray showed COPD with borderline heart size. Diffuse interstitial opacities and more confluent bibasilar airspace disease, right greater than left, (without significant change. Laboratory data showed D-dimer 24.99, potassium 5.2, bicarb 34 BUN 24 creatinine 0.79 calcium 8.1 ferritin 1008.5 AST 91 ALT 208 LDH 2000 CPK 194, CRP 14.0. Patient is being continued on dexamethasone 6 mg IV daily, Lovenox 50 mg subcu twice daily and multivitamins. Pulmonary is on board. Patient is tachypneic. Afebrile. 02/15/2021 Patient is currently in MICU remains intubated and also on sedation and paralyzed. Assist control 500, respiratory 32 and PEEP of 17 and FiO2 30%. Chest x-ray showed mild improvement of diffuse increased lung markings. Patient is tachypneic. Blood pressure is stable. Patient is afebrile. Laboratory data showed diabetes 11.7 hemoglobin 16.1 MCV 101.1 and platelets 178 ABG showed pH of 7.3 PCO2 73 and PO2 53 Sodium 137 potassium 5.6 bicarb is 34 BUN 34 and creatinine 0.9 AST is 57 ALT from 58 LDH 1693 CRP 10.3 Patient is on enteral feeding. 02/16/2021 Patient is currently MICU on mechanical L also on sedation and paralyzed. Currently on assist control 100 PEEP of 17 and FiO2 50%. ABG showed pH of 7.31, PCO2 68 and PO2 60 Chest x-ray showed bibasilar infiltrates. Findings are improving. Laboratory showed WBC 12.7 hemoglobin 15.3 and platelets 167 D-dimer is 9.64 sodium 137 potassium 5.1 bicarb is 34 BUN 59 creatinine 1.52 blood sugar is 150 AST 61 ALT 144 LDH 1363 total protein 5.9 albumin 3.1 and procalcitonin 1.25 Patient is being continued on dexamethasone, Lovenox twice daily, multivitamins. Critical care team is on board. 02/17/2021 Patient currently in the MICU and remains on mechanical ventilator. Sedated and paralyzed. Assist-control 450 respiratory rate 32 PEEP of 17 and FiO2 50%. Chest x-ray showed COPD and continued bibasilar airspace disease and background increase in interstitial opacity. Laboratory data showed WBC 13.6 hemoglobin 14.1 and platelets 162 D-dimer is 5.41 pH of 7.27, PCO2 82 and PO2 56 Sodium 138 potassium 5.5 BUN 59 and creatinine 1.21 AST 65 ALT 143 LDH 1230 CRP 6.5 and pro calcitonin level of 0.73 Patient was started on cefepime and vancomycin. 02/18/2021 Patient is currently in the MICU. Currently sedated and paralyzed. Patient became hypoxic and decompensated with sedation holiday and was put back on sedation and currently paralyzed. Assist-control 450 PEEP of 17 and FiO2 50%. Chest x-ray showed stable findings. T-max 100.4 Laboratory data showed LDH 1169, CRP 1.1 and the creatinine went up to 1.3 to. WBC 11.8. Otherwise patient is being continued on Decadron 6 mg IV every 12 and Lovenox 50 mg every 12. Patient has been afebrile. Urine culture showed gram-negative bacilli and is currently getting cefepime. Blood cultures grew gram-positive cocci and is on vancomycin until final is nothing blood cultures. Pulmonary is on board. 02/19/2021 Patient is currently on mechanical ventilator and paralyzed. Assist-control 450, PEEP of 17 and FiO2 60%. Chest x-ray showed diffuse bilateral pulmonary infiltrates mostly in the lung bases. Laboratory data showed WBC 12.4 hemoglobin 13.1 and platelets 86 D-dimer 4.03 Potassium 5.8, BUN 80 and creatinine 2.5, pro calcitonin 0.88, LDH 898, CRP 1.6 and alk phos 108 at length patient is being continued on DEXA was on, Lovenox twice a day and antibiotics in the form of cefepime for E. coli urinary tract infection. Follow-up repeat blood cultures. Vancomycin has been discontinued.. Patient was seen by nephrology and added Midodrin 3 times a day. Critical care team and is on board. 02/20/2021 Patient is sedated and intubated and paralyzed. Remains in ICU and on [facility] anical ventilator. Assist-control 450, PEEP of 17 and FiO2 60%. On IV hydration with normal saline 70 mL per hour. Patient is tolerating enteral feeding. Afebrile. Chest x-ray showed COPD and borderline heart size. Interstitial changes and minimal lung airspace disease no significant change. Laboratory data showed WBC 9.6, hemoglobin 12.9 platelets 168 Sodium 139 potassium 6.1, BUN 99 and creatinine 4.15, ferritin 479, AST 31 ALT 94 alk phos 65 LDH 1032 and CRP 2.0 Patient be continued on cefepime. Nephrology is on board. IV hydration with normal saline. Continued on dexamethasone and Lovenox. Prognosis guarded in this time. Current medications reviewed. Objective - Vital Signs Vital signs: Vital Signs Temp 98.4 F 02/20/21 20:00 Pulse 87 02/20/21 20:50 Resp 32 H 02/20/21 20:50 BP 126/51 02/20/21 20:50 Pulse Ox 94 L 02/20/21 20:50 Intake & Output 02/20/21 02/20/21 02/21/21 06:59 18:59 06:59 Intake Total 5464.092 9232.445 204.138 Output Total 255 120 20 Balance 3982.629 1651.445 184.138 Weight 108.7 kg 108.7 kg Intake: IV 936 611 106 Pressure bag 36 36 6 Sodium Chloride 0.9% 1, 900 575 100 000 ml @ 50 mls/hr IV . Q20H MARIO Rx#:[id number] Intake, IV Titration 539.231 417.445 26.138 Amount Cisatracurium 200 mg In 69.490 66.356 Sodium Chloride 0.9% 180 ml @ 1 MCG/KG/MIN 5.987 mls/hr IV .Q24H MARIO Rx#: [id number] Norepinephrine 8 mg In 87.041 Sodium Chloride 0.9% 250 ml @ 0.05 MCG/KG/MIN 10. 362 mls/hr IV .Q24H MARIO Rx#:[id number] fentaNYL (PF). 1,000 mcg 26.138 In Sodium Chloride 0.9% 80 ml @ Per Protocol IV . Q0M MARIO Rx#:[id number] propofoL 1,000 mg In 382.700 351.089 Empty Bag 1 bag @ Titrate IV .Q0M MARIO Rx#: [id number] Oral 200 Tube Feeding 324 333 72 Other 90 Output: Urine 255 120 20 Other: Voiding Method Indwelling Catheter Indwelling Catheter Indwelling Catheter ABP, PAP, CO, CI - Last Documented Arterial Blood Pressure 88/42 - Exam - Exam -GENERAL: The patient is intubated and sedated . HEENT: Pupils are round and equally reacting to light. No scleral icterus. No conjunctival pallor. Normocephalic, atraumatic. No thyromegaly. CARDIOVASCULAR: S1 and S2 present. No murmurs, rubs, or gallops. PULMONARY: Chest is clear to auscultation, no wheezing or crackles. ABDOMEN: Soft, nontender, nondistended, normoactive bowel sounds. No palpable organomegaly. MUSCULOSKELETAL: No joint swelling or deformity. EXTREMITIES: No cyanosis, clubbing, or pedal edema. NEUROLOGICAL: Gross neurological examination did not reveal any focal deficits. SKIN: No rashes. no petechiae. - Labs CBC & Chem 7: 02/21/21 04:46 02/21/21 04:46 Labs: Abnormal Lab Results - Last 24 Hours (Table) 02/19/21 02/19/21 02/20/21 Range/Units 04:00 23:54 03:45 RBC (4.30-5.90) m/uL Hgb (13.0-17.5) gm/dL MCV (80.0-100.0) fL RDW (11.5-15.5) % Neutrophils # (1.3-7.7) k/uL Lymphocytes # (1.0-4.8) k/uL D-Dimer (<0.60) mg/L FEU ABG pH (7.35-7.45) ABG pCO2 (35-45) mmHg ABG pO2 (83-108) mmHg ABG HCO3 (21-25) mmol/L ABG Total CO2 (19-24) mmol/L ABG O2 Saturation (94-97) % Potassium 6.1 H* (3.5-5.1) mmol/L BUN 99 H (9-20) mg/dL Creatinine 4.15 H (0.66-1.25) mg/dL Glucose 127 H (74-99) mg/dL POC Glucose (mg/dL) 134 H (75-99) mg/dL Ferritin 479.2 H (22.0-322.0) ng/mL ALT 94 H (4-49) U/L Lactate Dehydrogenase 1032 H (313-618) U/L C-Reactive Protein 2.0 H (<1.0) mg/dL Total Protein 5.4 L (6.3-8.2) g/dL Albumin 2.9 L (3.5-5.0) g/dL Procalcitonin 0.88 H (0.02-0.09) ng/mL 02/20/21 02/20/21 02/20/21 Range/Units 03:45 03:45 04:35 RBC 3.92 L (4.30-5.90) m/uL Hgb 12.9 L (13.0-17.5) gm/dL MCV 103.0 H (80.0-100.0) fL RDW 15.6 H (11.5-15.5) % Neutrophils # 8.0 H (1.3-7.7) k/uL Lymphocytes # 0.8 L (1.0-4.8) k/uL D-Dimer 3.36 H (<0.60) mg/L FEU ABG pH 7.18 L* (7.35-7.45) ABG pCO2 75 H* (35-45) mmHg ABG pO2 69 L (83-108) mmHg ABG HCO3 28 H (21-25) mmol/L ABG Total CO2 30 H (19-24) mmol/L ABG O2 Saturation 92.9 L (94-97) % Potassium (3.5-5.1) mmol/L BUN (9-20) mg/dL Creatinine (0.66-1.25) mg/dL Glucose (74-99) mg/dL POC Glucose (mg/dL) (75-99) mg/dL Ferritin (22.0-322.0) ng/mL ALT (4-49) U/L Lactate Dehydrogenase (313-618) U/L C-Reactive Protein (<1.0) mg/dL Total Protein (6.3-8.2) g/dL Albumin (3.5-5.0) g/dL Procalcitonin (0.02-0.09) ng/mL 02/20/21 02/20/21 02/20/21 Range/Units 12:25 12:33 18:53 RBC (4.30-5.90) m/uL Hgb (13.0-17.5) gm/dL MCV (80.0-100.0) fL RDW (11.5-15.5) % Neutrophils # (1.3-7.7) k/uL Lymphocytes # (1.0-4.8) k/uL D-Dimer (<0.60) mg/L FEU ABG pH (7.35-7.45) ABG pCO2 (35-45) mmHg ABG pO2 (83-108) mmHg ABG HCO3 (21-25) mmol/L ABG Total CO2 (19-24) mmol/L ABG O2 Saturation (94-97) % Potassium 6.4 H* (3.5-5.1) mmol/L BUN (9-20) mg/dL Creatinine (0.66-1.25) mg/dL Glucose (74-99) mg/dL POC Glucose (mg/dL) 119 H 116 H (75-99) mg/dL Ferritin (22.0-322.0) ng/mL ALT (4-49) U/L Lactate Dehydrogenase (313-618) U/L C-Reactive Protein (<1.0) mg/dL Total Protein (6.3-8.2) g/dL Albumin (3.5-5.0) g/dL Procalcitonin (0.02-0.09) ng/mL 02/20/21 Range/Units 19:02 RBC (4.30-5.90) m/uL Hgb (13.0-17.5) gm/dL MCV (80.0-100.0) fL RDW (11.5-15.5) % Neutrophils # (1.3-7.7) k/uL Lymphocytes # (1.0-4.8) k/uL D-Dimer (<0.60) mg/L FEU ABG pH (7.35-7.45) ABG pCO2 (35-45) mmHg ABG pO2 (83-108) mmHg ABG HCO3 (21-25) mmol/L ABG Total CO2 (19-24) mmol/L ABG O2 Saturation (94-97) % Potassium 6.5 H* (3.5-5.1) mmol/L BUN (9-20) mg/dL Creatinine (0.66-1.25) mg/dL Glucose (74-99) mg/dL POC Glucose (mg/dL) (75-99) mg/dL Ferritin (22.0-322.0) ng/mL ALT (4-49) U/L Lactate Dehydrogenase (313-618) U/L C-Reactive Protein (<1.0) mg/dL Total Protein (6.3-8.2) g/dL Albumin (3.5-5.0) g/dL Procalcitonin (0.02-0.09) ng/mL Microbiology - Last 24 Hours (Table) 02/16/21 08:05 Blood Culture - Preliminary Blood No Growth after 96 hours 02/16/21 17:33 Gram Stain - Final Sputum Sputum Culture - Final Staphylococcus aureus Dianne albicans Assessment and Plan Assessment: Acute bilateral Covid pneumonia ARDS / Acute hypoxic respiratory failure secondary to above. on mechanical ventilator Elevated inflammatory markers E. coli urinary tract infection Gram-positive cocci bacteremia. Coagulase-negative staph aureus. Acute kidney injury. Possible ATN. Increasing creatinine level. Hyperkalemia secondary to acute kidney injury Severe cardiomyopathy EF: 20-25% Elevated troponin, secondary to Covid infection. Possible non-ST elevated OR. Elevated d-dimer, with no evidence of PE on CTA of the chest Mildly elevated liver enzymes, secondary to covid Elevated lactic acid, came back to normal Emphysema Plan: This is a pleasant 65 years old male who presents with Covid, hypoxic respiratory failure and elevated troponin level. Patient received Tocilizumab and 1 unit of convalescent plasma. Patient does not make much improvement for the last few days. Continue with vitamin C, vitamin D and zinc. Continue with steroids and lovenox BID Due to elevated D-dimer level.. Pulmonary and cardiology is following. Continue with antibiotics in the form of cefepime. Labs and medication were reviewed.. Continue with symptomatic treatment. Resume home medication. Monitor lytes and vitals. DVT and GI prophylaxis. Further recommendations depends on the clinical course of the patient DVT prophylaxis: Subcutaneous Lovenox GI Prophylaxis: Pepcid PT/OT: Pending Prognosis is guarded Time with Patient: Greater than 30
[2021-02-21 11:39] LABS: Glucose,Whole Blood 93 mg/dL (75-99)
--- NOTE | 2021-02-21 11:47 | P.PN ---
Subjective Progress Note Date: 02/21/21 Principal diagnosis: Acute hypoxic respiratory failure secondary to COVID-19 pneumonia and ARDS 02/13/2021, the patient is being seen for follow-up in intensive care unit. This is a 65-year-old -[place] male patient was admitted with Covid 19 related pneumonia and the patient was initially given high flow oxygen and later on BiPAP and because of ongoing failure, the patient was intubated and placed on a mechanical ventilator. He is a chronic smoker. He also smokes marijuana. The patient was intubated yesterday on 02/12/2021 because of respiratory failure related to Covid 19 related pneumonia. The patient is currently on assist control mode of ventilation. The patient is a rate of 36 with FiO2 of 9 90% 0% and a PEEP of 15 and tidal volume of 500. Your pressures around 41 metastatic pressure of 39. The patient remains sedated on propofol running at 60 mcg/kg per minute and the patient is also paralyzed at 2 mcg/kg per minute. Post intubation, the patient requires also pressors and currently norepinephrine is running at 0.02mcg/kg/per minute. The patient is mechanical ventilator. The patient normal saline at the rate of 75 mL an hour. Chest x-ray showing diffuse but the pulmonary patchy infiltrates. ET tube is in a good location. Note that the patient to telemetry markers from yesterday were quite elevated. LDH level was 4124 and the CRP was 20.5. The patient is currently on Decadron. The patient is also on Lovenox and the patient also received convalescent plasma and Tocilizumab. The LFTs are slightly elevated and the patient has some mild transaminitis related to COVID 19. Based on elevation of the d-dimer, the patient is being given 50 mg of Lovenox which is a half a milligram per KG every 12 hours. The blood gases from today showing a pH of 7.23 with a pCO2 of 63 and pO2 of 109. This was done and FiO2 of 90%. Blood work from today shows a d- dimer of more than 34, potassium level is down to 6.2 and the patient will need obviously D50 insulin along with 2 A of sodium bicarb. This hyperkalemia is related to acidosis. The patient's liver function tests are also elevated as the patient has mild transaminitis, ALT is 229, AST 307, LDH is 2716, pro calcitonin is at 0.14, CRP was 17.8. On 02/14/2021, I'm seeing the patient for a follow-up. This is a case of Covid 19 related pneumonia with secondary hypoxic respiratory failure and the patient has been intubated on 02/12/2021 and the patient is currently being seen in follow-up. On today's evaluation, the patient is on propofol which is running at 75 mg/kg per minute and the patient is also on Nimbex at 3 mcg/kg per minute. He is was sedated insipidus with the mechanical ventilator which is currently running at a tidal volume of 500 with a rate of 36 and it PEEP 15 and an FiO2 of 60%. The patient's blood gases from today showed a pH of 7.37 with a pCO2 of 64 and pO2 of 62 and this was on FiO2 of 60%. His chest x-ray from today is showing diffuse bilateral pulmonary infiltrates, essentially unchanged compared to yesterday and ET tube is in a good location. The patient's inflammatory markers on today's evaluation remain elevated although they're improving. The patient's LDH level is down to 2000 and his CRP level is down to 14 and the d-d shivam is still elevated at 24 although is improving. The patient is currently on Decadron 6 mg IV every 24 hours. He is also on Lovenox 50 mg subcu 3 times a day. He is also on a bicarb drip this was added yesterday as the patient was having significant acidosis which was mainly respiratory acidosis and secondary hyperkalemia. Potassium level is down to 5.2 and a pH currently is at 7.37 and as such the bicarb infusion can be discontinued. Creatinine is down to 0.7 and his also recovered from his acute kidney injury. He is on enteral feeding for nutritional support and currently this is running at 27 mL an hour of Nepro. The urine output is adequate and the patient's net fluid balance is +2.1 L over the past 24 hours. His weight is currently up to 101 kg. On today's evaluation for 2020, the patient remains sedated and paralyzed. The patient is on propofol at 75 mcg/kg per minute and the patient is also on Nimbex at 2 mcg/kg/m. The patient is calm and comfortable and successful mechanical ventilator which is running currently with tidal volume of 500, rate of 32, PEEP of 17 and an FiO2 of 50%. The blood is from today showed a pH of 7.3 with a pCO2 of 73 and pO2 of 52. This was done and a PEEP of 17. The chest x-ray is unchanged and there is diffuse bilateral pulmonary infiltrates right more than left lower lung more than the upper lobes. ET tube is high in the tr achea and it needs to be pushed then by another centimeter. Orogastric tube is in a good location. The patient otherwise is he was dynamically stable. He remains on Decadron. He remains on Lovenox 50 mg subcutaneous twice a day. He is on IV fluids and currently is receiving normal saline at the rate of 20 mL an hour. Fluid balance over the past 24 hours has been +2.2 L. The patient has been persistently in a positive fluid balance. As for the rest of the blood work, the patient's d-dimer is at 14 which is lower, his LDH is 1693, lower and the CRP is 10.3, lower. As for the rest of the electrolytes, his potassium level is at 5.6 and a serum bicarb is 34 with a BUN of 34 and a creatinine of 0.9. He is on enteral feeding for nutritional support and he is currently receiving Nepro at 27 mL an hour. No other major events overnight. I did do some ventilator changes on the patient y . yesterday which failed. I tried to wean off his feet and it failed and the patient became hypoxic and currently is a 17 of PEEP. he has a peak airway pressure in the setting of a pressure of 36 a nd 34 respectively On 02/16/2021, the patient is being seen in follow-up in the intensive care unit . The patient remains sedated and paralyzed. On today's evaluation, propofol is running at 70 mcg/kg per minute and the patient is also paralyzed with Nimbex running at 2 mcg/kg per minute. He is essentially the same as yesterday. Meanwhile, the patient remains on a mechanical ventilator. The patient is on the volumes second assist-control mode with a tidal volume of 500, rate of 32, FiO2 of 50% and a PEEP of 17. Again, these are the same ventilator settings as of yesterday. PH is at 7.31 with a pCO2 of 68 and pO2 of 60. Chest x-ray from today is not showing any major interval change. Orotracheal tube is in place. NG tube in place. There are bilateral pulmonary infiltrates and the findings are typical of ARDS. Meanwhile, the peak airway pressures at 36, static pressures are 34. These are the same numbers as of yesterday. The patient is a d-dimer of 9.6 with CRP of 7.6 and a LDH level of 1363. Currently is running a lower blood pressure with a systolic in the 90s. Lopressor has been held. Cardiac rhythm is sinus. IV fluids are running at disease an hour and the clarisse ent is not fluid balance is around 2.2 L positive over the past 24 hours. The patient is having a low-grade fever. His T-max was 100.2. Note that he is not covered with any antibiotics at this point in time. White cell count of 12.7. This of the blood work and electrolytes showed development of an acute kidney injury. Creatinine is up to 1.5 on today's evaluation and the rest of the blood work shows sodium 137, potassium of 5.1, LFTs are also showing some mild component of transaminitis. He is on enteral feeding for nutritional support and the patient is currently receiving Nepro 25 mL an hour. His urine output is in order of 40 cc hr 2020, the patient is not doing much in progress. His condition was stable yesterday and he continues to be sedated and paralyzed on today's evaluation where propofol is running at 65 mcg/kg per minute and the patient is also paralyzed on Nimbex at 2 mcg/kg per minute. Remains on the same ventilator setting with a tidal volume of 450, rate of 32, PEEP of 17 with a FiO2 of 50%. Chest x-ray findings and essentially unchanged over the past several days. The blood gases from today is showing a pH of 7.27 with a pCO2 of 81 and pO2 of 55. The peak airway pressure is around 35 and this static airway pressure is 33. The patient's hemodynamics is stable. He developed an acute kidney injury yesterday related to hypotension and he was given IV fluids and the creatinine is down to 1.2. His net fluid balance on today's evaluation is in the order of +2.2 L 4 02/15/2021 and +764 for 2020. He is currently on no pressors. Note that the patient had some fever since yesterday. The patient was pancultured. There is also still pending for now. No antibiotics was provided. The pro- calcitonin level came back quite elevated. The level is at 1.25. Meanwhile, he remains stable hemodynamically and his renal function is improving and the creatinine is down to 1.3. He is producing adequate amount of urine output for now. He is still running a low-grade fever White count at 13.6, inflammatory markers showed a d-dimer of 5.4 with a LDH level of 1230 and the CRP is at 6. He remains on steroids and the patient is receiving Decadron 6 mg IV every 12 hours. He did have an echocardiogram that showed impaired LV function with an ejection fraction of around 20-25%. He was trialed on dobutamine yesterday to augment his cardiac output and improve the renal failure. He did become tachycardic with dobutamine and this was discontinued. No other processes was given. He remains on enteral feeding for nutritional support and he is receiving Nepro at the rate of 27 mL an hour. Otherwise, no other major events occurring overnight. 02/18/2021, we are following this patient in the intensive care unit for a follow-up. Still sedated and paralyzed. An attempt to do the patient had paralytic holiday yesterday failed as the patient decompensated and the patient became hypoxic. Based on that, the patient placed back on a combination of propofol was still running at 65 mg/kg/m the Nimbex is running at 2 mcg/kg/h. As such, the patient remains sedated and paralyzed. Still on a mechanical ventilator. Essentially the same ventilator settings. Tidal volumes of 450 with a rate of 32 and a PEEP currently is at 17 with an FiO2 of 50%. The peak and static pressures remain elevated with a peak airway pressure of 34 ascending aortic pressure of 32. Blood gases from today showed a pH of 7.28 with a pCO2 of 78 and pO2 of 53. As such, oxygenation remains borderline and the patient is still undergoing permissive hypercapnia. Chest x-ray findings from today are essentially stable. Fluid balance was slightly positive and the patient was not receiving any pressors. In terms of inflammatory markers, the patient has an LDH of 1169 and a CRP of 1.1 and there is a slight rise in the creatinine which is up to 1.32. Note that his renal function continues to fluctuate. At one point he developed an acute kidney injury with a creatinine of 1.5. Otherwise, his white cell count is at 11.8 and the patient continues to have a lymphopenia. In terms of therapy, the patient remains on Decadron 6 mg IV twice a day. He remains on Lovenox 50 mg subcu every 12 hours. As mentioned earlier, he was diagnosed also having a cardiomyopathy with an ejection fraction of 20-25%. Enterofeeding is still with Nepro. The current rate is at 27 mL an hour and the patient is able to tolerate enteral feeding without any major issues. No diarrhea for now. fever. The urine culture that was done as part of a septic workup showed gram-negative bacillus and the patient is currently on IV cefepime. He was also given a dose of vancomycin for gram-positive cocci in his blood and is do not to be a coagulase-negative staph. His pro-calcitonin level was at 1.25 is currently coming down to 0.73 and essentially is improving. Sti ll running a low-grade fever with a T-max of 100.4. On today's evaluation of 02/19/2021, the patient remains intubated on a mechanical ventilator, sedated and paralyzed. The patient is a case of COVID-19 pneumonia with secondary ARDS. The patient is sedated and we're unable to cut down his sedation or paralytics over the past few days and the patient has not made a lot of progress. He remains sedated with propofol which is running at 55 mics respiratory/ minute and he is also on Nimbex at 2 mg/kg/h. The paralytic holiday was given and the patient failed due to oxygen desaturation. He remains on assist control mode with a tidal volume of 450 with a rate of 82 and the PEEP is at 17 and his FiO2 is at 60%. His chest x-ray from today is showing diffuse bilateral pulmonary infiltrates most on the lung bases. Extremities are quite diffuse. ET tube is in a good location. Orogastric tube is also in good location. The peak and static pressures today are 33 and 31 respectively and th e blood gases showing permissive hypercapnia with a pH of 7.23 and a pCO2 of 77 and pO2 of 78 and this was done and FiO2 of 60%. Unable to get this patient off paralytics because of a synchrony and oxygen desaturation. Hemodynamically stable on no pressors. His blood work shows an LDH of 898 which is up compared to yesterday and the CRP level is down to 1.6. He has developed an acute kidney injury in the creatinine is up to 2.5 with a mean of 18. The white cell count is at 12.4 and the patient continues to have a lymphopenia. The fluid balance over the past 24 hours has been +1 L and the patient is receiving IV fluids at 20 mL an hour and the patient is also on enteral feeding for nutritional support in the form of Nepro 27 mL an hour. He does have a E. coli urinary tract infection patient continues to be on IV cefepime. He is on no pressors for now. He is afebrile. No significant orotracheal secretions. No pressors. Patient was reevaluated today on 02/20/2021, remains intubated and mechanically ventilated. He is on assist control rate of 32 volume 450 FiO2 60% PEEP is 17. Patient is on permissive hypercapnia his ABG showed a pO2 of 69 pCO2 of 75 pH of 7.18. Peak airway pressure is 38 static pressure is 35. He is on propofol at 15 Nimbex at one and IV fluid 0.9 normal saline at 70 mL per hour. Patient is on enteral feeding in the form of Nepro 27 mL/h. Today I increased his tidal volume to 470 to improve his pCO2 and improve his pH. I started the patient on fentanyl. And his IV fluid was cut down to 50 mL/h. WBC count is 9.6 L. Hemoglobin is 12.9 d-dimer is 3.36 Potassium is 6. BUN is 99 creatinine is 4.15. LDH is 1032, C-reactive protein is 2.0. ALT is 94. Slightly elevated. Patient was reevaluated today on 02/21/2021, patient remains intubated and mechanically ventilated, his ventilator settings are assist control rate of 36 volume is 470 increased to 480 today. FiO2 is 60% PEEP of 17. His ABG showed a pO2 of 66 pCO2 of 84 and pH of 7.12. His peak airway pressures 40 to static pressure is 37. Patient remains on multiple drips including Nimbex at 1.2, he is off dopamine and Lasix, he is on fentanyl at 0.5, propofol at 40, and IV f luid 0.9 normal saline 20 mL per hour. Patient is on enteral feeding Nepro, is presently on hold. Patient had ultrafiltration last night, and he is undergoing hemodialysis today, this is the second treatment, the goal is to take 1 L off. Chest x-ray continues to show bilateral infiltrates, patient is not making a significant improvement over the last 24 hours, remains on relatively high FiO2 and the relatively high PEEP. Continues to have hypercapnia with a low pH of 7.12. Hence the thyroid volume was increased a bit today. ECG showed WBC 7.1 hemoglobin of 12.3. His d-dimer is 2.56. Potassium remains high and that's mostly because of his acidosis at 6.1. BUN is 98 creatinine is 4.90. Objective - Vital Signs Vital signs: Vital Signs Temp 97.9 F 02/21/21 08:00 Pulse 74 02/21/21 11:00 Resp 36 H 02/21/21 11:00 BP 101/43 02/21/21 11:00 Pulse Ox 91 L 02/21/21 11:00 Intake & Output 02/20/21 02/21/21 02/21/21 18:59 06:59 18:59 Intake Total 4588.314 1406.318 605.436 Output Total 120 73 8 Balance 1004.451 8683.318 597.436 Weight 108.7 kg 113.7 kg Intake: IV 611 629 92 Pressure bag 36 39 12 Sodium Chloride 0.9% 1, 575 590 80 000 ml @ 20 mls/hr IV . Q24H [facility]IO Rx#:[id number] Intake, IV Titration 417.445 344.318 381.436 Amount Cisatracurium 200 mg In 66.356 118.660 Sodium Chloride 0.9% 180 ml @ 1 MCG/KG/MIN 5.987 mls/hr IV .Q24H MARIO Rx#: [id number] DOPamine DRIP 800 mg In 174.776 Water For Injection 1 250ml.bag @ 5 MCG/KG/MIN 10.191 mls/hr IV .Q24H [facility]IO Rx#:[id number] Furosemide 100 mg In 83.667 88 Sodium Chloride 0.9% 90 ml @ 10 MG/HR 10 mls/hr IV .Q10H [facility]IO Rx#: [id number] fentaNYL (PF). 1,000 mcg 60.107 In Sodium Chloride 0.9% 80 ml @ Per Protocol IV . Q0M [facility]IO Rx#:[id number] propofoL 1,000 mg In 351.089 200.544 Empty Bag 1 bag @ Titrate IV .Q0M MARIO Rx#: [id number] Oral 200 Tube Feeding 333 288 72 Hemodialysis 0 Other 60 Output: Urine 120 73 8 Other: Voiding Method Indwelling Catheter Indwelling Catheter Indwelling Catheter ABP, PAP, CO, CI - Last Documented Arterial Blood Pressure 102/38 - Exam Physical Exam: Revealed a 65-year-old male intubated mechanically ventilated Head: Atraumatic, normocephalic. Endotracheal tube and orogastric tubes are intact. HEENT:[Neck is supple.] [No neck masses.] [No thyromegaly.] [No JVD.] PERRLA, EOMI, nonicteric. Chest: [Symmetrical chest expansion crackles and rhonchi bilaterally. Cardiac Exam: [Normal S1 and S2, no S3 gallop, no murmur.] Abdomen: Obese, [Soft, nontender, no megaly, no rebound, no guarding, normal bowel sounds.] Extremities: [No clubbing, trace of bipedal edema, no cyanosis. Neurological Exam: Could not assess, patient is sedated and paralyzed. Skin: No rashes. Psychiatric: Could not assess. - Labs CBC & Chem 7: 02/21/21 04:46 02/21/21 04:46 Labs: Abnormal Lab Results - Last 24 Hours (Table) 02/19/21 02/20/21 02/20/21 Range/Units 04:00 12:25 12:33 RBC (4.30-5.90) m/uL Hgb (13.0-17.5) gm/dL Hct (39.0-53.0) % MCV (80.0-100.0) fL RDW (11.5-15.5) % Lymphocytes # (1.0-4.8) k/uL D-Dimer (<0.60) mg/L FEU ABG pH (7.35-7.45) ABG pCO2 (35-45) mmHg ABG pO2 (83-108) mmHg ABG HCO3 (21-25) mmol/L ABG Total CO2 (19-24) mmol/L ABG O2 Saturation (94-97) % Potassium 6.4 H* (3.5-5.1) mmol/L BUN (9-20) mg/dL Creatinine (0.66-1.25) mg/dL Glucose (74-99) mg/dL POC Glucose (mg/dL) 119 H (75-99) mg/dL Procalcitonin 0.88 H (0.02-0.09) ng/mL 02/20/21 02/20/21 02/21/21 Range/Units 18:53 19:02 04:25 RBC (4.30-5.90) m/uL Hgb (13.0-17.5) gm/dL Hct (39.0-53.0) % MCV (80.0-100.0) fL RDW (11.5-15.5) % Lymphocytes # (1.0-4.8) k/uL D-Dimer (<0.60) mg/L FEU ABG pH 7.12 L* (7.35-7.45) ABG pCO2 84 H* (35-45) mmHg ABG pO2 66 L (83-108) mmHg ABG HCO3 27 H (21-25) mmol/L ABG Total CO2 29 H (19-24) mmol/L ABG O2 Saturation 91.4 L (94-97) % Potassium 6.5 H* (3.5-5.1) mmol/L BUN (9-20) mg/dL Creatinine (0.66-1.25) mg/dL Glucose (74-99) mg/dL POC Glucose (mg/dL) 116 H (75-99) mg/dL Procalcitonin (0.02-0.09) ng/mL 02/21/21 02/21/21 02/21/21 Range/Units 04:46 04:46 04:46 RBC 3.67 L (4.30-5.90) m/uL Hgb 12.3 L (13.0-17.5) gm/dL Hct 37.8 L (39.0-53.0) % MCV 103.0 H (80.0-100.0) fL RDW 16.0 H (11.5-15.5) % Lymphocytes # 0.6 L (1.0-4.8) k/uL D-Dimer 2.56 H (<0.60) mg/L FEU ABG pH (7.35-7.45) ABG pCO2 (35-45) mmHg ABG pO2 (83-108) mmHg ABG HCO3 (21-25) mmol/L ABG Total CO2 (19-24) mmol/L ABG O2 Saturation (94-97) % Potassium 6.1 H* (3.5-5.1) mmol/L BUN 98 H (9-20) mg/dL Creatinine 4.90 H (0.66-1.25) mg/dL Glucose 105 H (74-99) mg/dL POC Glucose (mg/dL) (75-99) mg/dL Procalcitonin (0.02-0.09) ng/mL Microbiology - Last 24 Hours (Table) 02/16/21 08:05 Blood Culture - Preliminary Blood No Growth after 120 hours 02/16/21 17:33 Gram Stain - Final Sputum Sputum Culture - Final Staphylococcus aureus Dianne albicans Assessment and Plan Assessment: Impression: Acute hypoxic failure secondary to COVID-19 pneumonia and ARDS. Elevated inflammatory markers secondary to above E coli urinary tract infection on cefepime Troponin leak. Former smoker. Elevated liver enzymes secondary to COVID-19 pneumonia and infection Acute kidney injury Severe cardiomyopathy and LV dysfunction with ejection fraction of 20%. Recommendation: Continue ventilatory support. Minimal ventilator adjustment was made in the tidal volume. Otherwise no changes in the vent settings. Continue sedation and paralysis. Continue antibiotics/cefepime. Continue nutritional support. Continue the vitamin cocktail. Patient received convalescent plasma and toci Continue to monitor renal profile being followed by nephrology. Patient did not demonstrate any improvement on dopamine, hence this was discontinued. Continue GI and DVT prophylaxis. Patient remains critically ill, prognosis is extremely poor, critical care time is over 30 minutes
--- NOTE | 2021-02-21 13:31 | PN ---
PROGRESS NOTE Patient is seen for followup for acute kidney injury. Yesterday, patient remained significantly oliguric with persistent hyperkalemia and he was therefore dialyzed last night. The patient had a 2-hour treatment and this morning his potassium was again elevated at 6.1. He is scheduled for hemodialysis again. The patient had been on dopamine and Lasix drip with no significant urine output. PHYSICAL EXAMINATION: On examination today, patient remains on the vent. Case is discussed with nursing staff. FiO2 is 60%. He is maintained on sedation. Blood pressure 108/48, heart rate about 76 per minute. He continues to have edema about 1+ in the extremities. The patient is tolerating his tube feeds. ACCOUNT RECEIVABLE ASSOCIATE exam cannot be performed. LABS: Labs show sodium 140, potassium 6.1, chloride 106. BUN 98, serum creatinine 4.9. Hemoglobin 12.3 g/dL. ASSESSMENT: 1. Acute kidney injury, acute tubular necrosis, currently oliguric with no improvement with Lasix drip or dopamine. Patient could not tolerate the dobutamine due to significant tachycardia. He does have significantly low EF of about 20%. Started on dialysis last night. The patient will be dialyzed again today and we will reassess for dialysis tomorrow based on his labs. 2. Severe hyperkalemia associated with acute kidney injury hypercatabolic state. 3. COVID pneumonia. 4. Metabolic acidosis. 5. Acute hypoxic respiratory failure, currently maintained on the vent. 6. Cardiomyopathy, ejection fraction of about 20% to 25%. 7. Escherichia coli urinary tract infection. 8. Coagulase-negative Staphylococcus bacteremia. 9. Pneumonia with sputum culture growing Staph aureus. PLAN: Repeat hemodialysis today and we will plan for another treatment tomorrow based on his potassium. MMODL / IJN: [id number] /
[2021-02-21 17:50] LABS: Glucose,Whole Blood 121 mg/dL (75-99)
[2021-02-21] MEDS: CEFEPIME 2 GM in SODIUM CHLORIDE 0.9% 100 ML IVPB SCH (19:35)
[2021-02-21] MEDS: NOREPINEPHRINE 8 MG in SODIUM CHLORIDE 0.9% 250 ML IV SCH (23:43)
[2021-02-22] MEDS: SODIUM CHLORIDE 0.9% 1,000 ML IV SCH (02:04)
[2021-02-22 04:14] LABS: ABG Base Excess -2.4 mmol/L; ABG HCO3 26 mmol/L (21-25); ABG Oxygen Saturation 91.4 % (94-97); ABG PO2 67 mmHg (83-108); ABG TCO2 29 mmol/L (19-24); Allen Test Performed? Yes
[2021-02-22 04:18] LABS: ABG PCO2 75 mmHg (35-45); ABG PH 7.15 (7.35-7.45)
[2021-02-22 05:50] LABS: Glucose,Whole Blood 212 mg/dL (75-99)
[2021-02-22 06:06] LABS: Calcium 8.6 mg/dL (8.4-10.2)
[2021-02-22 06:11] LABS: Anisocytosis Slight; Basophils % (A) 0 %; Eosinophils % (A) 0 %; HCT 38.1 % (39.0-53.0); HGB 11.5 gm/dL (13.0-17.5); Hypochromasia Marked; Lymphocytes # (A) 0.8 k/uL (1.0-4.8); Lymphocytes % (A) 9 %; MCH 31.1 pg (25.0-35.0); MCHC 30.2 g/dL (31.0-37.0); MCV 103.2 fL (80.0-100.0); Macrocytosis Moderate; Mean Platelet Volume 8.6; Monocytes # (A) 0.5 k/uL (0-1.0); Monocytes % (A) 6 %; Neutrophils # (A) 8.1 k/uL (1.3-7.7); Neutrophils % (A) 83 %; Platelet Count 171 k/uL (150-450); Poikilocytosis Slight; RBC 3.69 m/uL (4.30-5.90); RDW 16.7 % (11.5-15.5); WBC 9.8 k/uL (3.8-10.6)
[2021-02-22] MEDS: MIDODRINE 5 MG TAB PO SCH ×3 (07:09→13:58)
--- NOTE | 2021-02-22 07:17 | XR ---
EXAMINATION TYPE: XR chest 1V portable DATE OF EXAM: 02/22/2021 COMPARISON: 02/21/2021 HISTORY: SOB, Follow Up FINDINGS: Indwelling tubes and catheters are unchanged. Patchy airspace infiltrates throughout both lung shell persist unchanged. Stable appearance of the cardio-mediastinal structures at this time. Pleural effusion unchanged. IMPRESSION: 1. Stable portable chest. Clinical correlation and follow up until resolution is recommended.
[2021-02-22] MEDS ORDERED: NOREPINEPHRIN 4 MG-0.9% NS PMX 4 MG/250 ML ML IV ONE (10:14)
[2021-02-22] MEDS ORDERED: ATROPINE SULFATE 0.1 MG/ML 10ML SYRINGE ONE ×2 (10:17→10:20)
[2021-02-22] MEDS ORDERED: SODIUM BICARB 8.4% 50 ML SYR (1 MEQ/ML) ONE ×2 (10:20→10:27)
[2021-02-22] MEDS ORDERED: DEXTROSE 5% IN WATER 100 ML BAG IV ONE (10:20)
[2021-02-22] MEDS ORDERED: SODIUM CHLORIDE 0.9% 250 ML BAG ONE (10:20)
[2021-02-22] MEDS ORDERED: AMIODARONE 50 MG/ML 3 ML VIAL IV ONE (10:20)
[2021-02-22] MEDS ORDERED: NOREPINEPHRINE 1 MG/ML 4 ML VIAL IV ONE (10:20)
[2021-02-22] MEDS ORDERED: EPINEPHrine 10 ML SYRINGE (0.1 MG/ML) ONE (10:20)
[2021-02-22 10:31] LABS: ABG Base Excess -4.6 mmol/L; ABG HCO3 26 mmol/L (21-25); ABG Oxygen Saturation 71.1 % (94-97); ABG TCO2 29 mmol/L (19-24); Allen Test Performed? Yes
[2021-02-22 10:33] LABS: ABG PCO2 98 mmHg (35-45); ABG PH 7.04 (7.35-7.45)
[2021-02-22 10:34] LABS: ABG PO2 44 mmHg (83-108)
--- NOTE | 2021-02-22 10:52 | CONS ---
CONSULTATION I was consulted for urgent placement of dialysis catheter. Patient COVID positive with hyperkalemia. The patient has been intubated. He came with shortness of breath and fever. His CT of the chest showed no . Patient has extensive bilateral pneumonia. Ultrasound negative for DVT of both lower extremity. The patient was seen in the room. Patient has been intubated. Neck is supple. Chest has rhonchi bilateral. Abdomen is soft. Femorals are 1+ bilateral. PLAN: Placement of the dialysis catheter. Risks and complications discussed. MMODL / IJN: [id number] /
--- NOTE | 2021-02-22 10:58 | PCN ---
PROCEDURE NOTE PREOPERATIVE DIAGNOSES: Acute chronic renal failure, hyperkalemia, COVID positive, intubated. POSTOPERATIVE DIAGNOSES: Acute chronic renal failure, hyperkalemia, COVID positive, intubated. PROCEDURE: Ultrasound-guided right femoral dialysis catheter placed. DESCRIPTION OF THE PROCEDURE: Patient was seen in the intensive care unit. Right groin was prepped and drapes applied in usual sterile manner. Ultrasound-guided micropuncture introduced right femoral vein. Micropuncture guidewire was passed and 4-Martiniquais dilator advanced on top of the guidewire. After that, we passed a regular guidewire without any resistance. Then we passed a dilator and then we placed a dialysis catheter on the top of the guidewire. The guidewire was removed, flushed with heparin saline and hep-locked and secured with 3-0 nylon. Patient tolerated the procedure well. MMYAIMA / NAYELYN: [id number] /
--- NOTE | 2021-02-22 11:09 | PN ---
PROGRESS NOTE The patient is seen for followup for acute kidney injury. He is currently seen on hemodialysis. The patient had been tolerating his treatment very well. He has had no significant urine output. His potassium was elevated at 6.0 today. The patient had received about 2 hours and 15 minutes of treatment and he coded. He developed hypotension and then started to have bradycardia and eventually code was called. The patient was resuscitated for short period of time and he remains on the vent. He has been taken off dialysis. We did dialyze him on a 1 K bath and hopefully his potassium has decreased. Repeat labs will be done as well. PHYSICAL EXAMINATION: Earlier this morning patient was on the vent, comfortable. Blood pressure this morning was 129/50, heart rate 92 per minute. He was comfortable on the vent. ABDOMEN: Soft, nontender. Examination of lower extremities shows edema 2+ bilaterally. 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 LABS: Labs from today show sodium 138, potassium 6.0, BUN 91, creatinine 5.4. ASSESSMENT: 1. Acute kidney injury, acute tubular necrosis, currently oliguric, maintained on dialysis. Patient is receiving his third treatment today. He did however code about 2 hours and 15 minutes into treatment. His treatment was discontinued. Repeat labs will be done. 2. Hyperkalemia associated with acute kidney injury, improved post dialysis. 3. Acute hypoxic respiratory failure secondary COVID pneumonia. 4. COVID pneumonia. 5. Status post cardiac arrest. PLAN: Repeat labs. If patient is stable, we will consider renal replacement therapy again in a.m. depending on hemodynamics status and electrolytes. MMODL / IJN: [id number] /
[2021-02-22] MEDS ORDERED: AMIODARONE 360 MG in DEXTROSE 5% IN WATER 200 ML IV ONE ×2 (11:15)
[2021-02-22] MEDS: DEXTROSE 5% IN WATER 1,000 ML with SODIUM BICARB (1 MEQ/ML) 150 ML IV SCH ×2 (11:17→23:37)
[2021-02-22] MEDS: NOREPINEPHRINE 32 MG in SODIUM CHLORIDE 0.9% 218 ML IV SCH ×3 (11:27→14:05)
[2021-02-22] MEDS: METOPROLOL TARTRATE 25 MG TAB PO SCH ×2 (11:28→20:11)
[2021-02-22] MEDS: CHLORHEXIDINE GLUCONATE 15 ML CUP MUCOUS MEM SCH ×2 (11:29→20:10)
[2021-02-22] MEDS: DEXAMETHASONE SOD PHOSPHATE 10 MG/ML 1 ML VIAL IV SCH ×2 (11:32→20:09)
[2021-02-22] MEDS: FAMOTIDINE 20 MG/2 ML VIAL IV SCH (11:34)
[2021-02-22] MEDS: fentaNYL (PF). 1,000 MCG in SODIUM CHLORIDE 0.9% 80 ML IV SCH (11:37)
[2021-02-22] MEDS: ASPIRIN 81 MG PO SCH (11:40)
[2021-02-22] MEDS: CHOLECALCIFEROL 25 MCG (1000 IU) TABLET PO SCH (11:40)
[2021-02-22] MEDS: ASCORBIC ACID 500 MG TAB PO SCH (11:40)
[2021-02-22] MEDS: ZINC SULFATE 220 MG CAP PO SCH (11:40)
--- NOTE | 2021-02-22 11:52 | P.PN ---
Subjective Progress Note Date: 02/22/21 Principal diagnosis: Acute hypoxic respiratory failure secondary to COVID-19 pneumonia and ARDS 02/13/2021, the patient is being seen for follow-up in intensive care unit. This is a 65-year-old -[place] male patient was admitted with Covid 19 related pneumonia and the patient was initially given high flow oxygen and later on BiPAP and because of ongoing failure, the patient was intubated and placed on a mechanical ventilator. He is a chronic smoker. He also smokes marijuana. The patient was intubated yesterday on 02/12/2021 because of respiratory failure related to Covid 19 related pneumonia. The patient is currently on assist control mode of ventilation. The patient is a rate of 36 with FiO2 of 9 90% 0% and a PEEP of 15 and tidal volume of 500. Your pressures around 41 metastatic pressure of 39. The patient remains sedated on propofol running at 60 mcg/kg per minute and the patient is also paralyzed at 2 mcg/kg per minute. Post intubation, the patient requires also pressors and currently norepinephrine is running at 0.02mcg/kg/per minute. The patient is mechanical ventilator. The patient normal saline at the rate of 75 mL an hour. Chest x-ray showing diffuse but the pulmonary patchy infiltrates. ET tube is in a good location. Note that the patient to telemetry markers from yesterday were quite elevated. LDH level was 4124 and the CRP was 20.5. The patient is currently on Decadron. The patient is also on Lovenox and the patient also received convalescent plasma and Tocilizumab. The LFTs are slightly elevated and the patient has some mild transaminitis related to COVID 19. Based on elevation of the d-dimer, the patient is being given 50 mg of Lovenox which is a half a milligram per KG every 12 hours. The blood gases from today showing a pH of 7.23 with a pCO2 of 63 and pO2 of 109. This was done and FiO2 of 90%. Blood work from today shows a d- dimer of more than 34, potassium level is down to 6.2 and the patient will need obviously D50 insulin along with 2 A of sodium bicarb. This hyperkalemia is related to acidosis. The patient's liver function tests are also elevated as the patient has mild transaminitis, ALT is 229, AST 307, LDH is 2716, pro calcitonin is at 0.14, CRP was 17.8. On 02/14/2021, I'm seeing the patient for a follow-up. This is a case of Covid 19 related pneumonia with secondary hypoxic respiratory failure and the patient has been intubated on 02/12/2021 and the patient is currently being seen in follow-up. On today's evaluation, the patient is on propofol which is running at 75 mg/kg per minute and the patient is also on Nimbex at 3 mcg/kg per minute. He is was sedated insipidus with the mechanical ventilator which is currently running at a tidal volume of 500 with a rate of 36 and it PEEP 15 and an FiO2 of 60%. The patient's blood gases from today showed a pH of 7.37 with a pCO2 of 64 and pO2 of 62 and this was on FiO2 of 60%. His chest x-ray from today is showing diffuse bilateral pulmonary infiltrates, essentially unchanged compared to yesterday and ET tube is in a good location. The patient's inflammatory markers on today's evaluation remain elevated although they're improving. The patient's LDH level is down to 2000 and his CRP level is down to 14 and the d-d shivam is still elevated at 24 although is improving. The patient is currently on Decadron 6 mg IV every 24 hours. He is also on Lovenox 50 mg subcu 3 times a day. He is also on a bicarb drip this was added yesterday as the patient was having significant acidosis which was mainly respiratory acidosis and secondary hyperkalemia. Potassium level is down to 5.2 and a pH currently is at 7.37 and as such the bicarb infusion can be discontinued. Creatinine is down to 0.7 and his also recovered from his acute kidney injury. He is on enteral feeding for nutritional support and currently this is running at 27 mL an hour of Nepro. The urine output is adequate and the patient's net fluid balance is +2.1 L over the past 24 hours. His weight is currently up to 101 kg. On today's evaluation for 2020, the patient remains sedated and paralyzed. The patient is on propofol at 75 mcg/kg per minute and the patient is also on Nimbex at 2 mcg/kg/m. The patient is calm and comfortable and successful mechanical ventilator which is running currently with tidal volume of 500, rate of 32, PEEP of 17 and an FiO2 of 50%. The blood is from today showed a pH of 7.3 with a pCO2 of 73 and pO2 of 52. This was done and a PEEP of 17. The chest x-ray is unchanged and there is diffuse bilateral pulmonary infiltrates right more than left lower lung more than the upper lobes. ET tube is high in the tr achea and it needs to be pushed then by another centimeter. Orogastric tube is in a good location. The patient otherwise is he was dynamically stable. He remains on Decadron. He remains on Lovenox 50 mg subcutaneous twice a day. He is on IV fluids and currently is receiving normal saline at the rate of 20 mL an hour. Fluid balance over the past 24 hours has been +2.2 L. The patient has been persistently in a positive fluid balance. As for the rest of the blood work, the patient's d-dimer is at 14 which is lower, his LDH is 1693, lower and the CRP is 10.3, lower. As for the rest of the electrolytes, his potassium level is at 5.6 and a serum bicarb is 34 with a BUN of 34 and a creatinine of 0.9. He is on enteral feeding for nutritional support and he is currently receiving Nepro at 27 mL an hour. No other major events overnight. I did do some ventilator changes on the patient y . yesterday which failed. I tried to wean off his feet and it failed and the patient became hypoxic and currently is a 17 of PEEP. he has a peak airway pressure in the setting of a pressure of 36 a nd 34 respectively On 02/16/2021, the patient is being seen in follow-up in the intensive care unit . The patient remains sedated and paralyzed. On today's evaluation, propofol is running at 70 mcg/kg per minute and the patient is also paralyzed with Nimbex running at 2 mcg/kg per minute. He is essentially the same as yesterday. Meanwhile, the patient remains on a mechanical ventilator. The patient is on the volumes second assist-control mode with a tidal volume of 500, rate of 32, FiO2 of 50% and a PEEP of 17. Again, these are the same ventilator settings as of yesterday. PH is at 7.31 with a pCO2 of 68 and pO2 of 60. Chest x-ray from today is not showing any major interval change. Orotracheal tube is in place. NG tube in place. There are bilateral pulmonary infiltrates and the findings are typical of ARDS. Meanwhile, the peak airway pressures at 36, static pressures are 34. These are the same numbers as of yesterday. The patient is a d-dimer of 9.6 with CRP of 7.6 and a LDH level of 1363. Currently is running a lower blood pressure with a systolic in the 90s. Lopressor has been held. Cardiac rhythm is sinus. IV fluids are running at disease an hour and the clarisse ent is not fluid balance is around 2.2 L positive over the past 24 hours. The patient is having a low-grade fever. His T-max was 100.2. Note that he is not covered with any antibiotics at this point in time. White cell count of 12.7. This of the blood work and electrolytes showed development of an acute kidney injury. Creatinine is up to 1.5 on today's evaluation and the rest of the blood work shows sodium 137, potassium of 5.1, LFTs are also showing some mild component of transaminitis. He is on enteral feeding for nutritional support and the patient is currently receiving Nepro 25 mL an hour. His urine output is in order of 40 cc hr 2020, the patient is not doing much in progress. His condition was stable yesterday and he continues to be sedated and paralyzed on today's evaluation where propofol is running at 65 mcg/kg per minute and the patient is also paralyzed on Nimbex at 2 mcg/kg per minute. Remains on the same ventilator setting with a tidal volume of 450, rate of 32, PEEP of 17 with a FiO2 of 50%. Chest x-ray findings and essentially unchanged over the past several days. The blood gases from today is showing a pH of 7.27 with a pCO2 of 81 and pO2 of 55. The peak airway pressure is around 35 and this static airway pressure is 33. The patient's hemodynamics is stable. He developed an acute kidney injury yesterday related to hypotension and he was given IV fluids and the creatinine is down to 1.2. His net fluid balance on today's evaluation is in the order of +2.2 L 4 02/15/2021 and +764 for 2020. He is currently on no pressors. Note that the patient had some fever since yesterday. The patient was pancultured. There is also still pending for now. No antibiotics was provided. The pro- calcitonin level came back quite elevated. The level is at 1.25. Meanwhile, he remains stable hemodynamically and his renal function is improving and the creatinine is down to 1.3. He is producing adequate amount of urine output for now. He is still running a low-grade fever White count at 13.6, inflammatory markers showed a d-dimer of 5.4 with a LDH level of 1230 and the CRP is at 6. He remains on steroids and the patient is receiving Decadron 6 mg IV every 12 hours. He did have an echocardiogram that showed impaired LV function with an ejection fraction of around 20-25%. He was trialed on dobutamine yesterday to augment his cardiac output and improve the renal failure. He did become tachycardic with dobutamine and this was discontinued. No other processes was given. He remains on enteral feeding for nutritional support and he is receiving Nepro at the rate of 27 mL an hour. Otherwise, no other major events occurring overnight. 02/18/2021, we are following this patient in the intensive care unit for a follow-up. Still sedated and paralyzed. An attempt to do the patient had paralytic holiday yesterday failed as the patient decompensated and the patient became hypoxic. Based on that, the patient placed back on a combination of propofol was still running at 65 mg/kg/m the Nimbex is running at 2 mcg/kg/h. As such, the patient remains sedated and paralyzed. Still on a mechanical ventilator. Essentially the same ventilator settings. Tidal volumes of 450 with a rate of 32 and a PEEP currently is at 17 with an FiO2 of 50%. The peak and static pressures remain elevated with a peak airway pressure of 34 ascending aortic pressure of 32. Blood gases from today showed a pH of 7.28 with a pCO2 of 78 and pO2 of 53. As such, oxygenation remains borderline and the patient is still undergoing permissive hypercapnia. Chest x-ray findings from today are essentially stable. Fluid balance was slightly positive and the patient was not receiving any pressors. In terms of inflammatory markers, the patient has an LDH of 1169 and a CRP of 1.1 and there is a slight rise in the creatinine which is up to 1.32. Note that his renal function continues to fluctuate. At one point he developed an acute kidney injury with a creatinine of 1.5. Otherwise, his white cell count is at 11.8 and the patient continues to have a lymphopenia. In terms of therapy, the patient remains on Decadron 6 mg IV twice a day. He remains on Lovenox 50 mg subcu every 12 hours. As mentioned earlier, he was diagnosed also having a cardiomyopathy with an ejection fraction of 20-25%. Enterofeeding is still with Nepro. The current rate is at 27 mL an hour and the patient is able to tolerate enteral feeding without any major issues. No diarrhea for now. fever. The urine culture that was done as part of a septic workup showed gram-negative bacillus and the patient is currently on IV cefepime. He was also given a dose of vancomycin for gram-positive cocci in his blood and is do not to be a coagulase-negative staph. His pro-calcitonin level was at 1.25 is currently coming down to 0.73 and essentially is improving. Sti ll running a low-grade fever with a T-max of 100.4. On today's evaluation of 02/19/2021, the patient remains intubated on a mechanical ventilator, sedated and paralyzed. The patient is a case of COVID-19 pneumonia with secondary ARDS. The patient is sedated and we're unable to cut down his sedation or paralytics over the past few days and the patient has not made a lot of progress. He remains sedated with propofol which is running at 55 mics respiratory/ minute and he is also on Nimbex at 2 mg/kg/h. The paralytic holiday was given and the patient failed due to oxygen desaturation. He remains on assist control mode with a tidal volume of 450 with a rate of 82 and the PEEP is at 17 and his FiO2 is at 60%. His chest x-ray from today is showing diffuse bilateral pulmonary infiltrates most on the lung bases. Extremities are quite diffuse. ET tube is in a good location. Orogastric tube is also in good location. The peak and static pressures today are 33 and 31 respectively and th e blood gases showing permissive hypercapnia with a pH of 7.23 and a pCO2 of 77 and pO2 of 78 and this was done and FiO2 of 60%. Unable to get this patient off paralytics because of a synchrony and oxygen desaturation. Hemodynamically stable on no pressors. His blood work shows an LDH of 898 which is up compared to yesterday and the CRP level is down to 1.6. He has developed an acute kidney injury in the creatinine is up to 2.5 with a mean of 18. The white cell count is at 12.4 and the patient continues to have a lymphopenia. The fluid balance over the past 24 hours has been +1 L and the patient is receiving IV fluids at 20 mL an hour and the patient is also on enteral feeding for nutritional support in the form of Nepro 27 mL an hour. He does have a E. coli urinary tract infection patient continues to be on IV cefepime. He is on no pressors for now. He is afebrile. No significant orotracheal secretions. No pressors. Patient was reevaluated today on 02/20/2021, remains intubated and mechanically ventilated. He is on assist control rate of 32 volume 450 FiO2 60% PEEP is 17. Patient is on permissive hypercapnia his ABG showed a pO2 of 69 pCO2 of 75 pH of 7.18. Peak airway pressure is 38 static pressure is 35. He is on propofol at 15 Nimbex at one and IV fluid 0.9 normal saline at 70 mL per hour. Patient is on enteral feeding in the form of Nepro 27 mL/h. Today I increased his tidal volume to 470 to improve his pCO2 and improve his pH. I started the patient on fentanyl. And his IV fluid was cut down to 50 mL/h. WBC count is 9.6 L. Hemoglobin is 12.9 d-dimer is 3.36 Potassium is 6. BUN is 99 creatinine is 4.15. LDH is 1032, C-reactive protein is 2.0. ALT is 94. Slightly elevated. Patient was reevaluated today on 02/21/2021, patient remains intubated and mechanically ventilated, his ventilator settings are assist control rate of 36 volume is 470 increased to 480 today. FiO2 is 60% PEEP of 17. His ABG showed a pO2 of 66 pCO2 of 84 and pH of 7.12. His peak airway pressures 40 to static pressure is 37. Patient remains on multiple drips including Nimbex at 1.2, he is off dopamine and Lasix, he is on fentanyl at 0.5, propofol at 40, and IV f luid 0.9 normal saline 20 mL per hour. Patient is on enteral feeding Nepro, is presently on hold. Patient had ultrafiltration last night, and he is undergoing hemodialysis today, this is the second treatment, the goal is to take 1 L off. Chest x-ray continues to show bilateral infiltrates, patient is not making a significant improvement over the last 24 hours, remains on relatively high FiO2 and the relatively high PEEP. Continues to have hypercapnia with a low pH of 7.12. Hence the thyroid volume was increased a bit today. ECG showed WBC 7.1 hemoglobin of 12.3. His d-dimer is 2.56. Potassium remains high and that's mostly because of his acidosis at 6.1. BUN is 98 creatinine is 4.90. Patient was reevaluated today on 02/22/2021, remains in the ICU, intubated and mechanically ventilated. Patient was on assist control rate of 36, tidal volume is 480, FiO2 60%, and PEEP of 17. ABG noted to have pO2 of 66 pCO2 of 75 pH of 7.153. His FiO2 was kept the same, we increased his respiratory rate up to 40, cut down his Lovenox to 30 mg subcu daily. Patient remained on propofol at 40 fentanyl at 0.5 Nimbex at 2 and Nepro at 40/40 IV fluid as at 20 mL per hour. I rounded on this patient, and finished my rounds, placed the orders on the chart, however as I was still in the ICU, patient underwent dialysis, and at the end of the dialysis, the patient lost his pulse, went pulseless, and he had pulseless electrical activity. I was called to the room and I ran the code. Patient r eceived CPR for less than 5 minutes. He received epinephrine 2. Bicarb 3. He was shocked 2, and he was placed on amiodarone bolus and amiodarone drip. Return of spontaneous circulation was noted within 5 minutes. Patient was placed back on mechanical ventilation, he was Ambu bag during the code. Place the patient on bicarb drip. And increase his FiO2 to 100%. And shortly after the code, left radial arterial line was placed. Patient was noted to be hemodynamically stable, did not require any pressors, he did receive 2 A of epinephrine only. And I placed him on amiodarone at the end of the code. And had a white complex tachycardia at the time when we were coding him. ABG during the code showed a pO2 of 44 pCO2 of 98 pH of 7.04. Objective - Vital Signs Vital signs: Vital Signs Temp 98.7 F 02/22/21 08:00 Pulse 87 02/22/21 09:00 Resp 29 H 02/22/21 09:00 BP 111/50 02/22/21 09:00 Pulse Ox 91 L 02/22/21 09:00 Intake & Output 02/21/21 02/22/21 02/22/21 18:59 06:59 18:59 Intake Total 7159.139 9294.535 311.214 Output Total 1008 11 0 Balance 111.372 8343.535 311.214 Weight 113.7 kg 117.7 kg Intake: IV 253 276 69 Pressure bag 33 36 9 Sodium Chloride 0.9% 1, 220 240 60 000 ml @ 20 mls/hr IV . Q24H [facility] Rx#:[id number] Intake, IV Titration 665.436 293.535 92.214 Amount Cisatracurium 200 mg In 219.846 93.535 Sodium Chloride 0.9% 180 ml @ 1 MCG/KG/MIN 5.987 mls/hr IV .Q24H [facility]IO Rx#: [id number] DOPamine DRIP 800 mg In 174.776 Water For Injection 1 250ml.bag @ 5 MCG/KG/MIN 10.191 mls/hr IV .Q24H [facility]IO Rx#:[id number] Furosemide 100 mg In 88 Sodium Chloride 0.9% 90 ml @ 10 MG/HR 10 mls/hr IV .Q10H [facility] Rx#: [id number] fentaNYL (PF). 1,000 mcg 91.399 92.214 In Sodium Chloride 0.9% 80 ml @ Per Protocol IV . Q0M [facility] Rx#:[id number] propofoL 1,000 mg In 91.415 200 Empty Bag 1 bag @ Titrate IV .Q0M [facility]IO Rx#: [id number] Tube Feeding 340 520 120 Other 140 30 Output: Urine 8 11 0 Hemodialysis 1000 Other: Voiding Method Indwelling Catheter Indwelling Catheter Indwelling Catheter ABP, PAP, CO, CI - Last Documented Arterial Blood Pressure 74/36 - Exam Physical Exam: Revealed a 65-year-old male intubated mechanically ventilated Head: Atraumatic, normocephalic. Endotracheal tube and orogastric tubes are intact. HEENT:[Neck is supple.] [No neck masses.] [No thyromegaly.] [No JVD.] PERRLA, EOMI, nonicteric. Chest: [Symmetrical chest expansion crackles and rhonchi bilaterally. Cardiac Exam: [Normal S1 and S2, no S3 gallop, no murmur.] Abdomen: Obese, [Soft, nontender, no megaly, no rebound, no guarding, normal bowel sounds.] Extremities: [No clubbing, trace of bipedal edema, no cyanosis. Neurological Exam: Could not assess, patient is sedated and paralyzed. Skin: No rashes. Psychiatric: Could not assess. - Labs CBC & Chem 7: 02/22/21 05:30 02/22/21 05:30 Labs: Abnormal Lab Results - Last 24 Hours (Table) 02/21/21 02/21/21 02/22/21 Range/Units 17:48 17:50 04:08 RBC (4.30-5.90) m/uL Hgb (13.0-17.5) gm/dL Hct (39.0-53.0) % MCV (80.0-100.0) fL MCHC (31.0-37.0) g/dL RDW (11.5-15.5) % Neutrophils # (1.3-7.7) k/uL Lymphocytes # (1.0-4.8) k/uL ABG pH 7.15 L* (7.35-7.45) ABG pCO2 75 H* (35-45) mmHg ABG pO2 67 L (83-108) mmHg ABG HCO3 26 H (21-25) mmol/L ABG Total CO2 29 H (19-24) mmol/L ABG O2 Saturation 91.4 L (94-97) % Potassium 5.4 H (3.5-5.1) mmol/L BUN (9-20) mg/dL Creatinine (0.66-1.25) mg/dL Glucose (74-99) mg/dL POC Glucose (mg/dL) 121 H (75-99) mg/dL 02/22/21 02/22/21 02/22/21 Range/Units 05:30 05:30 05:49 RBC 3.69 L (4.30-5.90) m/uL Hgb 11.5 L (13.0-17.5) gm/dL Hct 38.1 L (39.0-53.0) % MCV 103.2 H (80.0-100.0) fL MCHC 30.2 L (31.0-37.0) g/dL RDW 16.7 H (11.5-15.5) % Neutrophils # 8.1 H (1.3-7.7) k/uL Lymphocytes # 0.8 L (1.0-4.8) k/uL ABG pH (7.35-7.45) ABG pCO2 (35-45) mmHg ABG pO2 (83-108) mmHg ABG HCO3 (21-25) mmol/L ABG Total CO2 (19-24) mmol/L ABG O2 Saturation (94-97) % Potassium 6.0 H (3.5-5.1) mmol/L BUN 91 H (9-20) mg/dL Creatinine 5.41 H (0.66-1.25) mg/dL Glucose 124 H (74-99) mg/dL POC Glucose (mg/dL) 212 H (75-99) mg/dL 02/22/21 Range/Units 10:29 RBC (4.30-5.90) m/uL Hgb (13.0-17.5) gm/dL Hct (39.0-53.0) % MCV (80.0-100.0) fL MCHC (31.0-37.0) g/dL RDW (11.5-15.5) % Neutrophils # (1.3-7.7) k/uL Lymphocytes # (1.0-4.8) k/uL ABG pH 7.04 L* (7.35-7.45) ABG pCO2 98 H* (35-45) mmHg ABG pO2 44 L* (83-108) mmHg ABG HCO3 26 H (21-25) mmol/L ABG Total CO2 29 H (19-24) mmol/L ABG O2 Saturation 71.1 L (94-97) % Potassium (3.5-5.1) mmol/L BUN (9-20) mg/dL Creatinine (0.66-1.25) mg/dL Glucose (74-99) mg/dL POC Glucose (mg/dL) (75-99) mg/dL Microbiology - Last 24 Hours (Table) 02/16/21 08:05 Blood Culture - Final Blood No Growth after 144 hours Assessment and Plan Assessment: Impression: Acute hypoxic failure secondary to COVID-19 pneumonia and ARDS. Elevated inflammatory markers secondary to above E coli urinary tract infection on cefepime Troponin leak. Former smoker. Elevated liver enzymes secondary to COVID-19 pneumonia and infection Acute kidney injury Severe cardiomyopathy and LV dysfunction with ejection fraction of 20%. Cardiac arrest requiring CPR on 02/22/2021. Supraventricular tachycardia post cardiac arrest. Recommendation: Continue ventilatory support. Increase rate to 40. Continue sedation and paralysis. Continue antibiotics/cefepime. Continue nutritional support. Continue the vitamin cocktail. Patient received convalescent plasma and toci Continue to monitor renal profile being followed by nephrology. Patient is on hemodialysis. Decrease Lovenox to 40 mg subcu daily since the d-dimer is coming down. Placed on amiodarone drip post-CPR/cardiac arrest. Continue GI and DVT prophylaxis. Patient remains critically ill, prognosis is extremely poor, critical care time over 60 minutes, not including the time spent on placement of an arterial line. Most of the time was spent with the patient arrested and underwent CPR. Time with Patient: Greater than 30 (Over 1 hour of critical care time was spent on this patient for evaluation management, and running code/cardiac arrest requiring CPR.)
[2021-02-22 15:33] LABS: Glucose,Whole Blood 193 mg/dL (75-99)
[2021-02-22] MEDS: CISATRACURIUM 200 MG in SODIUM CHLORIDE 0.9% 180 ML IV SCH (15:42)
[2021-02-22] MEDS: AMIODARONE 450 MG in DEXTROSE 5% IN WATER 250 ML IV SCH ×2 (15:43)
--- NOTE | 2021-02-22 17:57 | OP ---
OPERATIVE REPORT OPERATIVE REPORT: Placement of a left radial arterial. PREOPERATIVE DIAGNOSIS: Cardiac arrest, his present arterial line is not functional. POSTOPERATIVE DIAGNOSIS: Cardiac arrest, his present arterial line is not functional. ANESTHESIA USED: None deployed. PROCEDURE: The patient was placed in the supine position. The left wrist was prepared in a sterile fashion. The drapes were applied. The left radial artery was palpated, cannulated, and a guidewire was placed. A Cook catheter was inserted over the guidewire, and the guidewire was removed. Good blood flow, good waveform noted. No evidence of any immediate complications. The line was secured using 3.0 silk sutures. MMODL / IJN: [id number] /
[2021-02-22 19:19] LABS: Hepatitis B Surface AB- Quant 3.5 mIU/mL; Hepatitis B Surface Antibody Non-Reactive (Non-Reactive); Hepatitis B Surface Antigen Non-Reactive (Non-Reactive)
[2021-02-22] MEDS: ENOXAPARIN 60 MG/0.6 ML SYRINGE SQ SCH (21:17)
--- NOTE | 2021-02-22 23:15 | P.PN ---
Subjective Progress Note Date: 02/21/21 Principal diagnosis: Acute bilateral Covid pneumonia Acute hypoxic respiratory failure secondary to above. on mechanical ventilator This is a pleasant 65 years old male with no significant past medical history who presents because of one-week history of dyspnea associated with high fever at 101.3 at home. Associated with coughing. He feels generally weak but no significant chest pain. Patient dyspnea was getting more worse and he was not feeling well so family brought him to the hospital. His symptoms started about 2 weeks Patient is poor historian and is oxygen saturation was troponin while he was on high flow nasal cannula and he has to be placed on BiPAP and sent to the ICU from emergency room Patient is ex-smoker, he quit a few months ago. Used to smoke 2 packs per day. Patient is tachypneic with a breathing rate of 30, he is saturating any to on 60 L/m of oxygen via high flow cannula. A febrile. CBC, and BMP are unremarkable. Liver enzymes slightly elevated with AST 100 and ALT 86 and normal bilirubin of 0.7. D-dimer is elevated at 5.7. Elevated troponin 0.03, 0.06, 0.06 Chronic varus detected CTA of the chest: No evidence of PE. Extensive bilateral pneumonia, emphysema EKG showing sinus tachycardia at 107 with the bundle branch block and QTC 523 Chest x-ray: Bilateral infiltrates Ultrasound of the lower extremities is negative for DVT on both sides In ED he was started on Lovenox, normal saline at 75 mL/h, one-time dose of tocilizumab per pulmonary team , vitamin C, zinc and vitamin D. Patient has been evaluated by pulmonary service, he was started on BiPAP and admitted to the ICU 02/11/2021 Patient remains in the ICU, monitored closely for his hypoxia, he needs BiPAP most of the time of continuously. Has increased inflammatory markers with ferritin 1519, LDH 2339 and selective 1438. D-dimer is elevated at 5.7 and he is placed on therapeutic dose of Lovenox. Chest x-ray showing bilateral infiltrate Remains on dexamethasone and vitamin cocktail for Covid, he also received 1 dose of tocilizumab and convalescent plasma Also he is on metoprolol and Lovenox 50 mg twice a day 02/12/2021 Patient seen and examined in the ICU for Covid pneumonia, this morning his respiratory status deteriorated and he had to be intubated and placed on mechanical ventilation, also blood pressure was troponin even with boluses of normal saline and he has to be placed on Levophed at 0.05. Vent setting showing PEEP 10, respiratory rate 30, dental: 450 and FiO2 is 100%. Dictated hydrogenase almost doubled to 4124 and C-reactive protein is high at 20. D-dimer more than 34. Liver enzymes slightly elevated. She remains on metoprolol 25 mg, Lovenox 50 mg dexamethasone, vitamin C, D and zinc. Also he is started on small dose of Levophed. And metoprolol 02/14/2021 Patient is currently in MICU and remains intubated. Patient was intubated on 02/12/2021. Currently on mechanical ventilator and is on sedation. Chest x-ray showed COPD with borderline heart size. Diffuse interstitial opacities and more confluent bibasilar airspace disease, right greater than left, (without significant change. Laboratory data showed D-dimer 24.99, potassium 5.2, bicarb 34 BUN 24 creatinine 0.79 calcium 8.1 ferritin 1008.5 AST 91 ALT 208 LDH 2000 CPK 194, CRP 14.0. Patient is being continued on dexamethasone 6 mg IV daily, Lovenox 50 mg subcu twice daily and multivitamins. Pulmonary is on board. Patient is tachypneic. Afebrile. 02/15/2021 Patient is currently in MICU remains intubated and also on sedation and paralyzed. Assist control 500, respiratory 32 and PEEP of 17 and FiO2 30%. Chest x-ray showed mild improvement of diffuse increased lung markings. Patient is tachypneic. Blood pressure is stable. Patient is afebrile. Laboratory data showed diabetes 11.7 hemoglobin 16.1 MCV 101.1 and platelets 178 ABG showed pH of 7.3 PCO2 73 and PO2 53 Sodium 137 potassium 5.6 bicarb is 34 BUN 34 and creatinine 0.9 AST is 57 ALT from 58 LDH 1693 CRP 10.3 Patient is on enteral feeding. 02/16/2021 Patient is currently MICU on mechanical L also on sedation and paralyzed. Currently on assist control 100 PEEP of 17 and FiO2 50%. ABG showed pH of 7.31, PCO2 68 and PO2 60 Chest x-ray showed bibasilar infiltrates. Findings are improving. Laboratory showed WBC 12.7 hemoglobin 15.3 and platelets 167 D-dimer is 9.64 sodium 137 potassium 5.1 bicarb is 34 BUN 59 creatinine 1.52 blood sugar is 150 AST 61 ALT 144 LDH 1363 total protein 5.9 albumin 3.1 and procalcitonin 1.25 Patient is being continued on dexamethasone, Lovenox twice daily, multivitamins. Critical care team is on board. 02/17/2021 Patient currently in the MICU and remains on mechanical ventilator. Sedated and paralyzed. Assist-control 450 respiratory rate 32 PEEP of 17 and FiO2 50%. Chest x-ray showed COPD and continued bibasilar airspace disease and background increase in interstitial opacity. Laboratory data showed WBC 13.6 hemoglobin 14.1 and platelets 162 D-dimer is 5.41 pH of 7.27, PCO2 82 and PO2 56 Sodium 138 potassium 5.5 BUN 59 and creatinine 1.21 AST 65 ALT 143 LDH 1230 CRP 6.5 and pro calcitonin level of 0.73 Patient was started on cefepime and vancomycin. 02/18/2021 Patient is currently in the MICU. Currently sedated and paralyzed. Patient became hypoxic and decompensated with sedation holiday and was put back on sedation and currently paralyzed. Assist-control 450 PEEP of 17 and FiO2 50%. Chest x-ray showed stable findings. T-max 100.4 Laboratory data showed LDH 1169, CRP 1.1 and the creatinine went up to 1.3 to. WBC 11.8. Otherwise patient is being continued on Decadron 6 mg IV every 12 and Lovenox 50 mg every 12. Patient has been afebrile. Urine culture showed gram-negative bacilli and is currently getting cefepime. Blood cultures grew gram-positive cocci and is on vancomycin until final is nothing blood cultures. Pulmonary is on board. 02/19/2021 Patient is currently on mechanical ventilator and paralyzed. Assist-control 450, PEEP of 17 and FiO2 60%. Chest x-ray showed diffuse bilateral pulmonary infiltrates mostly in the lung bases. Laboratory data showed WBC 12.4 hemoglobin 13.1 and platelets 86 D-dimer 4.03 Potassium 5.8, BUN 80 and creatinine 2.5, pro calcitonin 0.88, LDH 898, CRP 1.6 and alk phos 108 at length patient is being continued on DEXA was on, Lovenox twice a day and antibiotics in the form of cefepime for E. coli urinary tract infection. Follow-up repeat blood cultures. Vancomycin has been discontinued.. Patient was seen by nephrology and added Midodrin 3 times a day. Critical care team and is on board. 02/20/2021 Patient is sedated and intubated and paralyzed. Remains in ICU and on [facility] anical ventilator. Assist-control 450, PEEP of 17 and FiO2 60%. On IV hydration with normal saline 70 mL per hour. Patient is tolerating enteral feeding. Afebrile. Chest x-ray showed COPD and borderline heart size. Interstitial changes and minimal lung airspace disease no significant change. Laboratory data showed WBC 9.6, hemoglobin 12.9 platelets 168 Sodium 139 potassium 6.1, BUN 99 and creatinine 4.15, ferritin 479, AST 31 ALT 94 alk phos 65 LDH 1032 and CRP 2.0 Patient be continued on cefepime. Nephrology is on board. IV hydration with normal saline. Continued on dexamethasone and Lovenox. Prognosis guarded in this time. 02/21/2021 Patient is currently in MICU intubated and sedated. Assist-control 480 and FiO2 60% and PEEP of 17. Peak pressures are still high around 37. Chest x-ray showed COPD and stable bilateral airspace disease especially in the periphery and lower lungs. Patient being continued on dexamethasone IV twice daily and Lovenox. Nephrology is on board due to acute kidney injury and ATN. Patient was started on hemodialysis last night. And again today. Laboratory data showed potassium 6.1, BUN 98 and creatinine 4.9. WBC 9.1 and hemoglobin 12.3 and platelets 165 urine culture showed E. coli and blood cultures told coagulase-negative staph aureus. Critical care team is following closely. Current medications reviewed. Objective - Vital Signs Vital signs: Vital Signs Temp 97.9 F 02/21/21 08:00 Pulse 74 02/21/21 11:00 Resp 36 H 02/21/21 11:00 BP 101/43 02/21/21 11:00 Pulse Ox 91 L 02/21/21 11:00 Intake & Output 02/20/21 02/21/21 02/21/21 18:59 06:59 18:59 Intake Total 0144.386 7373.318 605.436 Output Total 120 73 8 Balance 9016.755 8931.318 597.436 Weight 108.7 kg 113.7 kg Intake: IV 611 629 92 Pressure bag 36 39 12 Sodium Chloride 0.9% 1, 575 590 80 000 ml @ 20 mls/hr IV . Q24H [facility]IO Rx#:[id number] Intake, IV Titration 417.445 344.318 381.436 Amount Cisatracurium 200 mg In 66.356 118.660 Sodium Chloride 0.9% 180 ml @ 1 MCG/KG/MIN 5.987 mls/hr IV .Q24H MARIO Rx#: [id number] DOPamine DRIP 800 mg In 174.776 Water For Injection 1 250ml.bag @ 5 MCG/KG/MIN 10.191 mls/hr IV .Q24H [facility]IO Rx#:[id number] Furosemide 100 mg In 83.667 88 Sodium Chloride 0.9% 90 ml @ 10 MG/HR 10 mls/hr IV .Q10H [facility]IO Rx#: [id number] fentaNYL (PF). 1,000 mcg 60.107 In Sodium Chloride 0.9% 80 ml @ Per Protocol IV . Q0M [facility]IO Rx#:[id number] propofoL 1,000 mg In 351.089 200.544 Empty Bag 1 bag @ Titrate IV .Q0M MARIO Rx#: [id number] Oral 200 Tube Feeding 333 288 72 Hemodialysis 0 Other 60 Output: Urine 120 73 8 Other: Voiding Method Indwelling Catheter Indwelling Catheter Indwelling Catheter ABP, PAP, CO, CI - Last Documented Arterial Blood Pressure 102/38 - Exam - Exam -GENERAL: The patient is intubated and sedated . HEENT: Pupils are round and equally reacting to light. No scleral icterus. No conjunctival pallor. Normocephalic, atraumatic. No thyromegaly. CARDIOVASCULAR: S1 and S2 present. No murmurs, rubs, or gallops. PULMONARY: Chest is clear to auscultation, no wheezing or crackles. ABDOMEN: Soft, nontender, nondistended, normoactive bowel sounds. No palpable organomegaly. MUSCULOSKELETAL: No joint swelling or deformity. EXTREMITIES: No cyanosis, clubbing, or pedal edema. NEUROLOGICAL: Gross neurological examination did not reveal any focal deficits. SKIN: No rashes. no petechiae. - Labs CBC & Chem 7: 02/22/21 05:30 02/22/21 05:30 Labs: Abnormal Lab Results - Last 24 Hours (Table) 02/19/21 02/20/21 02/20/21 Range/Units 04:00 12:25 12:33 RBC (4.30-5.90) m/uL Hgb (13.0-17.5) gm/dL Hct (39.0-53.0) % MCV (80.0-100.0) fL RDW (11.5-15.5) % Lymphocytes # (1.0-4.8) k/uL D-Dimer (<0.60) mg/L FEU ABG pH (7.35-7.45) ABG pCO2 (35-45) mmHg ABG pO2 (83-108) mmHg ABG HCO3 (21-25) mmol/L ABG Total CO2 (19-24) mmol/L ABG O2 Saturation (94-97) % Potassium 6.4 H* (3.5-5.1) mmol/L BUN (9-20) mg/dL Creatinine (0.66-1.25) mg/dL Glucose (74-99) mg/dL POC Glucose (mg/dL) 119 H (75-99) mg/dL Procalcitonin 0.88 H (0.02-0.09) ng/mL 02/20/21 02/20/21 02/21/21 Range/Units 18:53 19:02 04:25 RBC (4.30-5.90) m/uL Hgb (13.0-17.5) gm/dL Hct (39.0-53.0) % MCV (80.0-100.0) fL RDW (11.5-15.5) % Lymphocytes # (1.0-4.8) k/uL D-Dimer (<0.60) mg/L FEU ABG pH 7.12 L* (7.35-7.45) ABG pCO2 84 H* (35-45) mmHg ABG pO2 66 L (83-108) mmHg ABG HCO3 27 H (21-25) mmol/L ABG Total CO2 29 H (19-24) mmol/L ABG O2 Saturation 91.4 L (94-97) % Potassium 6.5 H* (3.5-5.1) mmol/L BUN (9-20) mg/dL Creatinine (0.66-1.25) mg/dL Glucose (74-99) mg/dL POC Glucose (mg/dL) 116 H (75-99) mg/dL Procalcitonin (0.02-0.09) ng/mL 02/21/21 02/21/21 02/21/21 Range/Units 04:46 04:46 04:46 RBC 3.67 L (4.30-5.90) m/uL Hgb 12.3 L (13.0-17.5) gm/dL Hct 37.8 L (39.0-53.0) % MCV 103.0 H (80.0-100.0) fL RDW 16.0 H (11.5-15.5) % Lymphocytes # 0.6 L (1.0-4.8) k/uL D-Dimer 2.56 H (<0.60) mg/L FEU ABG pH (7.35-7.45) ABG pCO2 (35-45) mmHg ABG pO2 (83-108) mmHg ABG HCO3 (21-25) mmol/L ABG Total CO2 (19-24) mmol/L ABG O2 Saturation (94-97) % Potassium 6.1 H* (3.5-5.1) mmol/L BUN 98 H (9-20) mg/dL Creatinine 4.90 H (0.66-1.25) mg/dL Glucose 105 H (74-99) mg/dL POC Glucose (mg/dL) (75-99) mg/dL Procalcitonin (0.02-0.09) ng/mL Microbiology - Last 24 Hours (Table) 02/16/21 08:05 Blood Culture - Preliminary Blood No Growth after 120 hours 02/16/21 17:33 Gram Stain - Final Sputum Sputum Culture - Final Staphylococcus aureus Dianne albicans Assessment and Plan Assessment: Acute bilateral Covid pneumonia ARDS / Acute hypoxic respiratory failure secondary to above. on mechanical vent ilator Elevated inflammatory markers E. coli urinary tract infection Gram-positive cocci bacteremia. Coagulase-negative staph aureus. Acute kidney injury. due to ATN. Started hemodialysis on 02/21/2020 Hyperkalemia secondary to acute kidney injury Metabolic acidosis Severe cardiomyopathy EF: 20-25% Elevated troponin, secondary to Covid infection. Possible non-ST elevated AK. Elevated d-dimer, with no evidence of PE on CTA of the chest Mildly elevated liver enzymes, secondary to covid Elevated lactic acid, came back to normal Emphysema Plan: This is a pleasant 65 years old male who presents with Covid, hypoxic respiratory failure and elevated troponin level. Patient received Tocilizumab and 1 unit of convalescent plasma. Patient does not make much improvement for the last few days. Continue with vitamin C, vitamin D and zinc. Continue with steroids and lovenox BID Due to elevated D-dimer level.. Pulmonary and cardiology is following. Continue with antibiotics in the form of cefepime.Changed to ceftriaxone Patient was initiated on hemodialysis due to acute kidney injury and hyperkalemia. Labs and medication were reviewed.. Continue with symptomatic treatment. Resume home medication. Monitor lytes and vitals. DVT and GI prophylaxis. Further recommendations depends on the clinical course of the patient DVT prophylaxis: Subcutaneous Lovenox GI Prophylaxis: Pepcid PT/OT: Pending Prognosis is guarded Time with Patient: Greater than 30
--- NOTE | 2021-02-22 23:24 | P.PN ---
Subjective Progress Note Date: 02/22/21 Principal diagnosis: Acute bilateral Covid pneumonia Acute hypoxic respiratory failure secondary to above. on mechanical ventilator This is a pleasant 65 years old male with no significant past medical history who presents because of one-week history of dyspnea associated with high fever at 101.3 at home. Associated with coughing. He feels generally weak but no significant chest pain. Patient dyspnea was getting more worse and he was not feeling well so family brought him to the hospital. His symptoms started about 2 weeks Patient is poor historian and is oxygen saturation was troponin while he was on high flow nasal cannula and he has to be placed on BiPAP and sent to the ICU from emergency room Patient is ex-smoker, he quit a few months ago. Used to smoke 2 packs per day. Patient is tachypneic with a breathing rate of 30, he is saturating any to on 60 L/m of oxygen via high flow cannula. A febrile. CBC, and BMP are unremarkable. Liver enzymes slightly elevated with AST 100 and ALT 86 and normal bilirubin of 0.7. D-dimer is elevated at 5.7. Elevated troponin 0.03, 0.06, 0.06 Chronic varus detected CTA of the chest: No evidence of PE. Extensive bilateral pneumonia, emphysema EKG showing sinus tachycardia at 107 with the bundle branch block and QTC 523 Chest x-ray: Bilateral infiltrates Ultrasound of the lower extremities is negative for DVT on both sides In ED he was started on Lovenox, normal saline at 75 mL/h, one-time dose of tocilizumab per pulmonary team , vitamin C, zinc and vitamin D. Patient has been evaluated by pulmonary service, he was started on BiPAP and admitted to the ICU 02/11/2021 Patient remains in the ICU, monitored closely for his hypoxia, he needs BiPAP most of the time of continuously. Has increased inflammatory markers with ferritin 1519, LDH 2339 and selective 1438. D-dimer is elevated at 5.7 and he is placed on therapeutic dose of Lovenox. Chest x-ray showing bilateral infiltrate Remains on dexamethasone and vitamin cocktail for Covid, he also received 1 dose of tocilizumab and convalescent plasma Also he is on metoprolol and Lovenox 50 mg twice a day 02/12/2021 Patient seen and examined in the ICU for Covid pneumonia, this morning his respiratory status deteriorated and he had to be intubated and placed on mechanical ventilation, also blood pressure was troponin even with boluses of normal saline and he has to be placed on Levophed at 0.05. Vent setting showing PEEP 10, respiratory rate 30, dental: 450 and FiO2 is 100%. Dictated hydrogenase almost doubled to 4124 and C-reactive protein is high at 20. D-dimer more than 34. Liver enzymes slightly elevated. She remains on metoprolol 25 mg, Lovenox 50 mg dexamethasone, vitamin C, D and zinc. Also he is started on small dose of Levophed. And metoprolol 02/14/2021 Patient is currently in MICU and remains intubated. Patient was intubated on 02/12/2021. Currently on mechanical ventilator and is on sedation. Chest x-ray showed COPD with borderline heart size. Diffuse interstitial opacities and more confluent bibasilar airspace disease, right greater than left, (without significant change. Laboratory data showed D-dimer 24.99, potassium 5.2, bicarb 34 BUN 24 creatinine 0.79 calcium 8.1 ferritin 1008.5 AST 91 ALT 208 LDH 2000 CPK 194, CRP 14.0. Patient is being continued on dexamethasone 6 mg IV daily, Lovenox 50 mg subcu twice daily and multivitamins. Pulmonary is on board. Patient is tachypneic. Afebrile. 02/15/2021 Patient is currently in MICU remains intubated and also on sedation and paralyzed. Assist control 500, respiratory 32 and PEEP of 17 and FiO2 30%. Chest x-ray showed mild improvement of diffuse increased lung markings. Patient is tachypneic. Blood pressure is stable. Patient is afebrile. Laboratory data showed diabetes 11.7 hemoglobin 16.1 MCV 101.1 and platelets 178 ABG showed pH of 7.3 PCO2 73 and PO2 53 Sodium 137 potassium 5.6 bicarb is 34 BUN 34 and creatinine 0.9 AST is 57 ALT from 58 LDH 1693 CRP 10.3 Patient is on enteral feeding. 02/16/2021 Patient is currently MICU on mechanical L also on sedation and paralyzed. Currently on assist control 100 PEEP of 17 and FiO2 50%. ABG showed pH of 7.31, PCO2 68 and PO2 60 Chest x-ray showed bibasilar infiltrates. Findings are improving. Laboratory showed WBC 12.7 hemoglobin 15.3 and platelets 167 D-dimer is 9.64 sodium 137 potassium 5.1 bicarb is 34 BUN 59 creatinine 1.52 blood sugar is 150 AST 61 ALT 144 LDH 1363 total protein 5.9 albumin 3.1 and procalcitonin 1.25 Patient is being continued on dexamethasone, Lovenox twice daily, multivitamins. Critical care team is on board. 02/17/2021 Patient currently in the MICU and remains on mechanical ventilator. Sedated and paralyzed. Assist-control 450 respiratory rate 32 PEEP of 17 and FiO2 50%. Chest x-ray showed COPD and continued bibasilar airspace disease and background increase in interstitial opacity. Laboratory data showed WBC 13.6 hemoglobin 14.1 and platelets 162 D-dimer is 5.41 pH of 7.27, PCO2 82 and PO2 56 Sodium 138 potassium 5.5 BUN 59 and creatinine 1.21 AST 65 ALT 143 LDH 1230 CRP 6.5 and pro calcitonin level of 0.73 Patient was started on cefepime and vancomycin. 02/18/2021 Patient is currently in the MICU. Currently sedated and paralyzed. Patient became hypoxic and decompensated with sedation holiday and was put back on sedation and currently paralyzed. Assist-control 450 PEEP of 17 and FiO2 50%. Chest x-ray showed stable findings. T-max 100.4 Laboratory data showed LDH 1169, CRP 1.1 and the creatinine went up to 1.3 to. WBC 11.8. Otherwise patient is being continued on Decadron 6 mg IV every 12 and Lovenox 50 mg every 12. Patient has been afebrile. Urine culture showed gram-negative bacilli and is currently getting cefepime. Blood cultures grew gram-positive cocci and is on vancomycin until final is nothing blood cultures. Pulmonary is on board. 02/19/2021 Patient is currently on mechanical ventilator and paralyzed. Assist-control 450, PEEP of 17 and FiO2 60%. Chest x-ray showed diffuse bilateral pulmonary infiltrates mostly in the lung bases. Laboratory data showed WBC 12.4 hemoglobin 13.1 and platelets 86 D-dimer 4.03 Potassium 5.8, BUN 80 and creatinine 2.5, pro calcitonin 0.88, LDH 898, CRP 1.6 and alk phos 108 at length patient is being continued on DEXA was on, Lovenox twice a day and antibiotics in the form of cefepime for E. coli urinary tract infection. Follow-up repeat blood cultures. Vancomycin has been discontinued.. Patient was seen by nephrology and added Midodrin 3 times a day. Critical care team and is on board. 02/20/2021 Patient is sedated and intubated and paralyzed. Remains in ICU and on [facility] anical ventilator. Assist-control 450, PEEP of 17 and FiO2 60%. On IV hydration with normal saline 70 mL per hour. Patient is tolerating enteral feeding. Afebrile. Chest x-ray showed COPD and borderline heart size. Interstitial changes and minimal lung airspace disease no significant change. Laboratory data showed WBC 9.6, hemoglobin 12.9 platelets 168 Sodium 139 potassium 6.1, BUN 99 and creatinine 4.15, ferritin 479, AST 31 ALT 94 alk phos 65 LDH 1032 and CRP 2.0 Patient be continued on cefepime. Nephrology is on board. IV hydration with normal saline. Continued on dexamethasone and Lovenox. Prognosis guarded in this time. 02/21/2021 Patient is currently in MICU intubated and sedated. Assist-control 480 and FiO2 60% and PEEP of 17. Peak pressures are still high around 37. Chest x-ray showed COPD and stable bilateral airspace disease especially in the periphery and lower lungs. Patient being continued on dexamethasone IV twice daily and Lovenox. Nephrology is on board due to acute kidney injury and ATN. Patient was started on hemodialysis last night. And again today. Laboratory data showed potassium 6.1, BUN 98 and creatinine 4.9. WBC 9.1 and hemoglobin 12.3 and platelets 165 urine culture showed E. coli and blood cultures told coagulase-negative staph aureus. Critical care team is following closely. 02/22/2021 Patient remained mechanical ventilator and on sedation. Assist-control 480 FiO2 60% and PEEP of 17. ABG showed pH of 7.15, PCO2 75-PO2 67 chest x-ray showed stable portable chest. Laboratory data showed potassium 6.0, BUN 91 and creatinine 5.41 patient was resting hemodialysis today. Patient went into cardiac arrest and CODE BLUE was initiated with return of spontaneous circulation.Was started on amiodarone drip. Laboratory showed sodium 138 potassium 6.0 BUN 91 and creatinine 5.41. Critical care team and nephrology is on board. Prognosis guarded at this time. Current medications reviewed. Objective - Vital Signs Vital signs: Vital Signs Temp 98.5 F 02/22/21 16:00 Pulse 85 02/22/21 22:00 Resp 26 H 02/22/21 22:00 BP 109/48 02/22/21 22:00 Pulse Ox 90 L 02/22/21 22:00 Intake & Output 02/22/21 02/22/21 02/23/21 06:59 18:59 06:59 Intake Total 5020.941 0395.857 652 Output Total 11 745 0 Balance 1587.577 3961.857 652 Weight 117.7 kg Intake: IV 276 1756 492 Dextrose 5% in Water 1, 500 400 000 ml @ 100 mls/hr IV . [id number] MARIO with Sodium Bicarb (1 Meq/ml) 150 ml Rx#:[id number] Pressure bag 36 36 12 Sodium Chloride 0.9% 1, 240 1220 80 000 ml @ 20 mls/hr IV . Q24H MARIO Rx#:[id number] Intake, IV Titration 293.535 372.857 Amount Cisatracurium 200 mg In 93.535 Sodium Chloride 0.9% 180 ml @ 1 MCG/KG/MIN 5.987 mls/hr IV .Q24H MARIO Rx#: [id number] Dextrose 5% in Water 1, 100 000 ml @ 100 mls/hr IV . [id number] MARIO with Sodium Bicarb (1 Meq/ml) 150 ml Rx#:[id number] Norepinephrine 32 mg In 80.643 Sodium Chloride 0.9% 218 ml @ 0.05 MCG/KG/MIN 2. 759 mls/hr IV .Q24H MARIO Rx#:[id number] fentaNYL (PF). 1,000 mcg 92.214 In Sodium Chloride 0.9% 80 ml @ Per Protocol IV . Q0M MARIO Rx#:[id number] propofoL 1,000 mg In 200 100 Empty Bag 1 bag @ Titrate IV .Q0M MARIO Rx#: [id number] Tube Feeding 520 320 160 Other 60 Output: Urine 11 10 0 Hemodialysis 735 Other: Voiding Method Indwelling Catheter Indwelling Catheter Indwelling Catheter ABP, PAP, CO, CI - Last Documented Arterial Blood Pressure 101/62 - Exam - Exam -GENERAL: The patient is intubated and sedated . HEENT: Pupils are round and equally reacting to light. No scleral icterus. No conjunctival pallor. Normocephalic, atraumatic. No thyromegaly. CARDIOVASCULAR: S1 and S2 present. No murmurs, rubs, or gallops. PULMONARY: Chest is clear to auscultation, no wheezing or crackles. ABDOMEN: Soft, nontender, nondistended, normoactive bowel sounds. No palpable organomegaly. MUSCULOSKELETAL: No joint swelling or deformity. EXTREMITIES: No cyanosis, clubbing, or pedal edema. NEUROLOGICAL: Gross neurological examination did not reveal any focal deficits. SKIN: No rashes. no petechiae. - Labs CBC & Chem 7: 02/22/21 05:30 02/22/21 05:30 Labs: Abnormal Lab Results - Last 24 Hours (Table) 02/22/21 02/22/21 02/22/21 Range/Units 04:08 05:30 05:30 RBC 3.69 L (4.30-5.90) m/uL Hgb 11.5 L (13.0-17.5) gm/dL Hct 38.1 L (39.0-53.0) % MCV 103.2 H (80.0-100.0) fL MCHC 30.2 L (31.0-37.0) g/dL RDW 16.7 H (11.5-15.5) % Neutrophils # 8.1 H (1.3-7.7) k/uL Lymphocytes # 0.8 L (1.0-4.8) k/uL ABG pH 7.15 L* (7.35-7.45) ABG pCO2 75 H* (35-45) mmHg ABG pO2 67 L (83-108) mmHg ABG HCO3 26 H (21-25) mmol/L ABG Total CO2 29 H (19-24) mmol/L ABG O2 Saturation 91.4 L (94-97) % Potassium 6.0 H (3.5-5.1) mmol/L BUN 91 H (9-20) mg/dL Creatinine 5.41 H (0.66-1.25) mg/dL Glucose 124 H (74-99) mg/dL POC Glucose (mg/dL) (75-99) mg/dL 02/22/21 02/22/21 02/22/21 Range/Units 05:49 10:29 15:30 RBC (4.30-5.90) m/uL Hgb (13.0-17.5) gm/dL Hct (39.0-53.0) % MCV (80.0-100.0) fL MCHC (31.0-37.0) g/dL RDW (11.5-15.5) % Neutrophils # (1.3-7.7) k/uL Lymphocytes # (1.0-4.8) k/uL ABG pH 7.04 L* (7.35-7.45) ABG pCO2 98 H* (35-45) mmHg ABG pO2 44 L* (83-108) mmHg ABG HCO3 26 H (21-25) mmol/L ABG Total CO2 29 H (19-24) mmol/L ABG O2 Saturation 71.1 L (94-97) % Potassium (3.5-5.1) mmol/L BUN (9-20) mg/dL Creatinine (0.66-1.25) mg/dL Glucose (74-99) mg/dL POC Glucose (mg/dL) 212 H 193 H (75-99) mg/dL Microbiology - Last 24 Hours (Table) 02/16/21 08:05 Blood Culture - Final Blood No Growth after 144 hours Assessment and Plan Assessment: Acute bilateral Covid pneumonia ARDS / Acute hypoxic respiratory failure secondary to above. on mechanical ventilator Elevated inflammatory markers E. coli urinary tract infection Gram-positive cocci bacteremia. Coagulase-negative staph aureus. Acute kidney injury. due to ATN. Started hemodialysis on 02/21/2020 Acute cardiac arrest 2 hours into third hemodialysis status post CPR and return of spontaneous circulation. Hyperkalemia secondary to acute kidney injury Metabolic acidosis Severe cardiomyopathy EF: 20-25% Elevated troponin, secondary to Covid infection. Possible non-ST elevated TX. Elevated d-dimer, with no evidence of PE on CTA of the chest Mildly elevated liver enzymes, secondary to covid Elevated lactic acid, came back to normal Emphysema Plan: This is a pleasant 65 years old male who presents with Covid, hypoxic respiratory failure and elevated troponin level. Patient received Tocilizumab and 1 unit of convalescent plasma. Patient does not make much improvement for the last few days. Continue with vitamin C, vitamin D and zinc. Continue with steroids and lovenox BID Due to elevated D-dimer level.. Pulmonary and cardiology is following. Continue with antibiotics in the form of cefepime.Changed to ceftriaxone Patient was initiated on hemodialysis due to acute kidney injury and hyperkalemia. Labs and medication were reviewed.. Continue with symptomatic treatment. Resume home medication. Monitor lytes and vitals. DVT and GI prophylaxis. Further recommendations depends on the clinical course of the patient DVT prophylaxis: Subcutaneous Lovenox GI Prophylaxis: Pepcid PT/OT: Pending Prognosis is guarded Time with Patient: Greater than 30
[2021-02-23] MEDS: SODIUM CHLORIDE 0.9% 1,000 ML IV SCH (01:38)
[2021-02-23 05:19] LABS: ABG Base Excess -0.9 mmol/L; ABG HCO3 28 mmol/L (21-25); ABG Oxygen Saturation 92.4 % (94-97); ABG PO2 69 mmHg (83-108); ABG TCO2 31 mmol/L (19-24); Allen Test Performed? Yes
[2021-02-23 05:25] LABS: ABG PH 7.15 (7.35-7.45)
[2021-02-23 05:26] LABS: ABG PCO2 81 mmHg (35-45)
[2021-02-23 05:51] LABS: Calcium 7.6 mg/dL (8.4-10.2); Potassium 5.1 mmol/L (3.5-5.1)
[2021-02-23] MEDS: fentaNYL (PF). 1,000 MCG in SODIUM CHLORIDE 0.9% 80 ML IV SCH ×2 (06:06→20:43)
--- NOTE | 2021-02-23 06:20 | XR ---
EXAMINATION TYPE: XR chest 1V portable DATE OF EXAM: 02/23/2021 CLINICAL HISTORY: Difficulty breathing progress study. TECHNIQUE: Single AP portable semiupright view of the chest is obtained. COMPARISON: Chest x-ray from one day earlier and older studies. FINDINGS: Stable endotracheal and orogastric tubes. Stable left subclavian central venous catheter. Persistent bilateral reticulonodular increased opacities with more confluent appearance in the lower lungs. Cardiac silhouette size is stable and mildly enlarged. Osseous structures remain intact. Enti re lung bases not included similar to most recent prior. IMPRESSION: Persistent bilateral multifocal and confluent reticulonodular opacities consistent with c ovid-19 infection. No significant change from x-ray one day earlier.
[2021-02-23 06:50] LABS: Anisocytosis Slight; Basophils % (A) 1 %; Eosinophils % (A) 0 %; HCT 31.2 % (39.0-53.0); Hypochromasia Marked; Lymphocytes # (A) 0.9 k/uL (1.0-4.8); Lymphocytes % (A) 11 %; MCH 31.2 pg (25.0-35.0); MCHC 30.6 g/dL (31.0-37.0); MCV 101.9 fL (80.0-100.0); Macrocytosis Moderate; Mean Platelet Volume 8.9; Monocytes # (A) 0.8 k/uL (0-1.0); Monocytes % (A) 10 %; Neutrophils # (A) 6.1 k/uL (1.3-7.7); Neutrophils % (A) 75 %; Platelet Count 156 k/uL (150-450); Poikilocytosis Moderate; RBC 3.06 m/uL (4.30-5.90); RDW 17.1 % (11.5-15.5); WBC 8.1 k/uL (3.8-10.6)
[2021-02-23 06:59] LABS: HGB 9.6 gm/dL (13.0-17.5)
[2021-02-23] MEDS: AMIODARONE 450 MG in DEXTROSE 5% IN WATER 250 ML IV SCH ×2 (08:03)
[2021-02-23] MEDS: MIDODRINE 5 MG TAB PO SCH ×3 (09:32→17:49)
[2021-02-23] MEDS: DEXAMETHASONE SOD PHOSPHATE 10 MG/ML 1 ML VIAL IV SCH ×2 (09:39→20:11)
[2021-02-23] MEDS: ASPIRIN 81 MG PO SCH (09:40)
[2021-02-23] MEDS: AMIODARONE 200 MG TAB PO SCH ×2 (09:40→20:11)
[2021-02-23] MEDS: CHOLECALCIFEROL 25 MCG (1000 IU) TABLET PO SCH (09:40)
[2021-02-23] MEDS: FAMOTIDINE 20 MG/2 ML VIAL IV SCH (09:40)
[2021-02-23] MEDS: METOPROLOL TARTRATE 25 MG TAB PO SCH ×2 (09:40→20:10)
[2021-02-23] MEDS: ENOXAPARIN 30 MG/0.3 ML SYRINGE SQ SCH (09:41)
[2021-02-23] MEDS: ASCORBIC ACID 500 MG TAB PO SCH (09:41)
[2021-02-23] MEDS: ZINC SULFATE 220 MG CAP PO SCH (09:41)
[2021-02-23] MEDS: CHLORHEXIDINE GLUCONATE 15 ML CUP MUCOUS MEM SCH ×2 (09:41→20:10)
[2021-02-23] MEDS: NOREPINEPHRINE 32 MG in SODIUM CHLORIDE 0.9% 218 ML IV SCH (09:42)
[2021-02-23] MEDS: CISATRACURIUM 200 MG in SODIUM CHLORIDE 0.9% 180 ML IV SCH (10:25)
[2021-02-23] MEDS: DEXTROSE 5% IN WATER 1,000 ML with SODIUM BICARB (1 MEQ/ML) 150 ML IV SCH ×2 (10:30→21:55)
--- NOTE | 2021-02-23 11:14 | P.PN ---
Subjective Progress Note Date: 02/23/21 Principal diagnosis: Acute hypoxic respiratory failure secondary to COVID-19 pneumonia and ARDS 02/13/2021, the patient is being seen for follow-up in intensive care unit. This is a 65-year-old -[place] male patient was admitted with Covid 19 related pneumonia and the patient was initially given high flow oxygen and later on BiPAP and because of ongoing failure, the patient was intubated and placed on a mechanical ventilator. He is a chronic smoker. He also smokes marijuana. The patient was intubated yesterday on 02/12/2021 because of respiratory failure related to Covid 19 related pneumonia. The patient is currently on assist control mode of ventilation. The patient is a rate of 36 with FiO2 of 9 90% 0% and a PEEP of 15 and tidal volume of 500. Your pressures around 41 metastatic pressure of 39. The patient remains sedated on propofol running at 60 mcg/kg per minute and the patient is also paralyzed at 2 mcg/kg per minute. Post intubation, the patient requires also pressors and currently norepinephrine is running at 0.02mcg/kg/per minute. The patient is mechanical ventilator. The patient normal saline at the rate of 75 mL an hour. Chest x-ray showing diffuse but the pulmonary patchy infiltrates. ET tube is in a good location. Note that the patient to telemetry markers from yesterday were quite elevated. LDH level was 4124 and the CRP was 20.5. The patient is currently on Decadron. The patient is also on Lovenox and the patient also received convalescent plasma and Tocilizumab. The LFTs are slightly elevated and the patient has some mild transaminitis related to COVID 19. Based on elevation of the d-dimer, the patient is being given 50 mg of Lovenox which is a half a milligram per KG every 12 hours. The blood gases from today showing a pH of 7.23 with a pCO2 of 63 and pO2 of 109. This was done and FiO2 of 90%. Blood work from today shows a d- dimer of more than 34, potassium level is down to 6.2 and the patient will need obviously D50 insulin along with 2 A of sodium bicarb. This hyperkalemia is related to acidosis. The patient's liver function tests are also elevated as the patient has mild transaminitis, ALT is 229, AST 307, LDH is 2716, pro calcitonin is at 0.14, CRP was 17.8. On 02/14/2021, I'm seeing the patient for a follow-up. This is a case of Covid 19 related pneumonia with secondary hypoxic respiratory failure and the patient has been intubated on 02/12/2021 and the patient is currently being seen in follow-up. On today's evaluation, the patient is on propofol which is running at 75 mg/kg per minute and the patient is also on Nimbex at 3 mcg/kg per minute. He is was sedated insipidus with the mechanical ventilator which is currently running at a tidal volume of 500 with a rate of 36 and it PEEP 15 and an FiO2 of 60%. The patient's blood gases from today showed a pH of 7.37 with a pCO2 of 64 and pO2 of 62 and this was on FiO2 of 60%. His chest x-ray from today is showing diffuse bilateral pulmonary infiltrates, essentially unchanged compared to yesterday and ET tube is in a good location. The patient's inflammatory markers on today's evaluation remain elevated although they're improving. The patient's LDH level is down to 2000 and his CRP level is down to 14 and the d-d shivam is still elevated at 24 although is improving. The patient is currently on Decadron 6 mg IV every 24 hours. He is also on Lovenox 50 mg subcu 3 times a day. He is also on a bicarb drip this was added yesterday as the patient was having significant acidosis which was mainly respiratory acidosis and secondary hyperkalemia. Potassium level is down to 5.2 and a pH currently is at 7.37 and as such the bicarb infusion can be discontinued. Creatinine is down to 0.7 and his also recovered from his acute kidney injury. He is on enteral feeding for nutritional support and currently this is running at 27 mL an hour of Nepro. The urine output is adequate and the patient's net fluid balance is +2.1 L over the past 24 hours. His weight is currently up to 101 kg. On today's evaluation for 2020, the patient remains sedated and paralyzed. The patient is on propofol at 75 mcg/kg per minute and the patient is also on Nimbex at 2 mcg/kg/m. The patient is calm and comfortable and successful mechanical ventilator which is running currently with tidal volume of 500, rate of 32, PEEP of 17 and an FiO2 of 50%. The blood is from today showed a pH of 7.3 with a pCO2 of 73 and pO2 of 52. This was done and a PEEP of 17. The chest x-ray is unchanged and there is diffuse bilateral pulmonary infiltrates right more than left lower lung more than the upper lobes. ET tube is high in the tr achea and it needs to be pushed then by another centimeter. Orogastric tube is in a good location. The patient otherwise is he was dynamically stable. He remains on Decadron. He remains on Lovenox 50 mg subcutaneous twice a day. He is on IV fluids and currently is receiving normal saline at the rate of 20 mL an hour. Fluid balance over the past 24 hours has been +2.2 L. The patient has been persistently in a positive fluid balance. As for the rest of the blood work, the patient's d-dimer is at 14 which is lower, his LDH is 1693, lower and the CRP is 10.3, lower. As for the rest of the electrolytes, his potassium level is at 5.6 and a serum bicarb is 34 with a BUN of 34 and a creatinine of 0.9. He is on enteral feeding for nutritional support and he is currently receiving Nepro at 27 mL an hour. No other major events overnight. I did do some ventilator changes on the patient y . yesterday which failed. I tried to wean off his feet and it failed and the patient became hypoxic and currently is a 17 of PEEP. he has a peak airway pressure in the setting of a pressure of 36 a nd 34 respectively On 02/16/2021, the patient is being seen in follow-up in the intensive care unit . The patient remains sedated and paralyzed. On today's evaluation, propofol is running at 70 mcg/kg per minute and the patient is also paralyzed with Nimbex running at 2 mcg/kg per minute. He is essentially the same as yesterday. Meanwhile, the patient remains on a mechanical ventilator. The patient is on the volumes second assist-control mode with a tidal volume of 500, rate of 32, FiO2 of 50% and a PEEP of 17. Again, these are the same ventilator settings as of yesterday. PH is at 7.31 with a pCO2 of 68 and pO2 of 60. Chest x-ray from today is not showing any major interval change. Orotracheal tube is in place. NG tube in place. There are bilateral pulmonary infiltrates and the findings are typical of ARDS. Meanwhile, the peak airway pressures at 36, static pressures are 34. These are the same numbers as of yesterday. The patient is a d-dimer of 9.6 with CRP of 7.6 and a LDH level of 1363. Currently is running a lower blood pressure with a systolic in the 90s. Lopressor has been held. Cardiac rhythm is sinus. IV fluids are running at disease an hour and the clarisse ent is not fluid balance is around 2.2 L positive over the past 24 hours. The patient is having a low-grade fever. His T-max was 100.2. Note that he is not covered with any antibiotics at this point in time. White cell count of 12.7. This of the blood work and electrolytes showed development of an acute kidney injury. Creatinine is up to 1.5 on today's evaluation and the rest of the blood work shows sodium 137, potassium of 5.1, LFTs are also showing some mild component of transaminitis. He is on enteral feeding for nutritional support and the patient is currently receiving Nepro 25 mL an hour. His urine output is in order of 40 cc hr 2020, the patient is not doing much in progress. His condition was stable yesterday and he continues to be sedated and paralyzed on today's evaluation where propofol is running at 65 mcg/kg per minute and the patient is also paralyzed on Nimbex at 2 mcg/kg per minute. Remains on the same ventilator setting with a tidal volume of 450, rate of 32, PEEP of 17 with a FiO2 of 50%. Chest x-ray findings and essentially unchanged over the past several days. The blood gases from today is showing a pH of 7.27 with a pCO2 of 81 and pO2 of 55. The peak airway pressure is around 35 and this static airway pressure is 33. The patient's hemodynamics is stable. He developed an acute kidney injury yesterday related to hypotension and he was given IV fluids and the creatinine is down to 1.2. His net fluid balance on today's evaluation is in the order of +2.2 L 4 02/15/2021 and +764 for 2020. He is currently on no pressors. Note that the patient had some fever since yesterday. The patient was pancultured. There is also still pending for now. No antibiotics was provided. The pro- calcitonin level came back quite elevated. The level is at 1.25. Meanwhile, he remains stable hemodynamically and his renal function is improving and the creatinine is down to 1.3. He is producing adequate amount of urine output for now. He is still running a low-grade fever White count at 13.6, inflammatory markers showed a d-dimer of 5.4 with a LDH level of 1230 and the CRP is at 6. He remains on steroids and the patient is receiving Decadron 6 mg IV every 12 hours. He did have an echocardiogram that showed impaired LV function with an ejection fraction of around 20-25%. He was trialed on dobutamine yesterday to augment his cardiac output and improve the renal failure. He did become tachycardic with dobutamine and this was discontinued. No other processes was given. He remains on enteral feeding for nutritional support and he is receiving Nepro at the rate of 27 mL an hour. Otherwise, no other major events occurring overnight. 02/18/2021, we are following this patient in the intensive care unit for a follow-up. Still sedated and paralyzed. An attempt to do the patient had paralytic holiday yesterday failed as the patient decompensated and the patient became hypoxic. Based on that, the patient placed back on a combination of propofol was still running at 65 mg/kg/m the Nimbex is running at 2 mcg/kg/h. As such, the patient remains sedated and paralyzed. Still on a mechanical ventilator. Essentially the same ventilator settings. Tidal volumes of 450 with a rate of 32 and a PEEP currently is at 17 with an FiO2 of 50%. The peak and static pressures remain elevated with a peak airway pressure of 34 ascending aortic pressure of 32. Blood gases from today showed a pH of 7.28 with a pCO2 of 78 and pO2 of 53. As such, oxygenation remains borderline and the patient is still undergoing permissive hypercapnia. Chest x-ray findings from today are essentially stable. Fluid balance was slightly positive and the patient was not receiving any pressors. In terms of inflammatory markers, the patient has an LDH of 1169 and a CRP of 1.1 and there is a slight rise in the creatinine which is up to 1.32. Note that his renal function continues to fluctuate. At one point he developed an acute kidney injury with a creatinine of 1.5. Otherwise, his white cell count is at 11.8 and the patient continues to have a lymphopenia. In terms of therapy, the patient remains on Decadron 6 mg IV twice a day. He remains on Lovenox 50 mg subcu every 12 hours. As mentioned earlier, he was diagnosed also having a cardiomyopathy with an ejection fraction of 20-25%. Enterofeeding is still with Nepro. The current rate is at 27 mL an hour and the patient is able to tolerate enteral feeding without any major issues. No diarrhea for now. fever. The urine culture that was done as part of a septic workup showed gram-negative bacillus and the patient is currently on IV cefepime. He was also given a dose of vancomycin for gram-positive cocci in his blood and is do not to be a coagulase-negative staph. His pro-calcitonin level was at 1.25 is currently coming down to 0.73 and essentially is improving. Sti ll running a low-grade fever with a T-max of 100.4. On today's evaluation of 02/19/2021, the patient remains intubated on a mechanical ventilator, sedated and paralyzed. The patient is a case of COVID-19 pneumonia with secondary ARDS. The patient is sedated and we're unable to cut down his sedation or paralytics over the past few days and the patient has not made a lot of progress. He remains sedated with propofol which is running at 55 mics respiratory/ minute and he is also on Nimbex at 2 mg/kg/h. The paralytic holiday was given and the patient failed due to oxygen desaturation. He remains on assist control mode with a tidal volume of 450 with a rate of 82 and the PEEP is at 17 and his FiO2 is at 60%. His chest x-ray from today is showing diffuse bilateral pulmonary infiltrates most on the lung bases. Extremities are quite diffuse. ET tube is in a good location. Orogastric tube is also in good location. The peak and static pressures today are 33 and 31 respectively and th e blood gases showing permissive hypercapnia with a pH of 7.23 and a pCO2 of 77 and pO2 of 78 and this was done and FiO2 of 60%. Unable to get this patient off paralytics because of a synchrony and oxygen desaturation. Hemodynamically stable on no pressors. His blood work shows an LDH of 898 which is up compared to yesterday and the CRP level is down to 1.6. He has developed an acute kidney injury in the creatinine is up to 2.5 with a mean of 18. The white cell count is at 12.4 and the patient continues to have a lymphopenia. The fluid balance over the past 24 hours has been +1 L and the patient is receiving IV fluids at 20 mL an hour and the patient is also on enteral feeding for nutritional support in the form of Nepro 27 mL an hour. He does have a E. coli urinary tract infection patient continues to be on IV cefepime. He is on no pressors for now. He is afebrile. No significant orotracheal secretions. No pressors. Patient was reevaluated today on 02/20/2021, remains intubated and mechanically ventilated. He is on assist control rate of 32 volume 450 FiO2 60% PEEP is 17. Patient is on permissive hypercapnia his ABG showed a pO2 of 69 pCO2 of 75 pH of 7.18. Peak airway pressure is 38 static pressure is 35. He is on propofol at 15 Nimbex at one and IV fluid 0.9 normal saline at 70 mL per hour. Patient is on enteral feeding in the form of Nepro 27 mL/h. Today I increased his tidal volume to 470 to improve his pCO2 and improve his pH. I started the patient on fentanyl. And his IV fluid was cut down to 50 mL/h. WBC count is 9.6 L. Hemoglobin is 12.9 d-dimer is 3.36 Potassium is 6. BUN is 99 creatinine is 4.15. LDH is 1032, C-reactive protein is 2.0. ALT is 94. Slightly elevated. Patient was reevaluated today on 02/21/2021, patient remains intubated and mechanically ventilated, his ventilator settings are assist control rate of 36 volume is 470 increased to 480 today. FiO2 is 60% PEEP of 17. His ABG showed a pO2 of 66 pCO2 of 84 and pH of 7.12. His peak airway pressures 40 to static pressure is 37. Patient remains on multiple drips including Nimbex at 1.2, he is off dopamine and Lasix, he is on fentanyl at 0.5, propofol at 40, and IV f luid 0.9 normal saline 20 mL per hour. Patient is on enteral feeding Nepro, is presently on hold. Patient had ultrafiltration last night, and he is undergoing hemodialysis today, this is the second treatment, the goal is to take 1 L off. Chest x-ray continues to show bilateral infiltrates, patient is not making a significant improvement over the last 24 hours, remains on relatively high FiO2 and the relatively high PEEP. Continues to have hypercapnia with a low pH of 7.12. Hence the thyroid volume was increased a bit today. ECG showed WBC 7.1 hemoglobin of 12.3. His d-dimer is 2.56. Potassium remains high and that's mostly because of his acidosis at 6.1. BUN is 98 creatinine is 4.90. Patient was reevaluated today on 02/22/2021, remains in the ICU, intubated and mechanically ventilated. Patient was on assist control rate of 36, tidal volume is 480, FiO2 60%, and PEEP of 17. ABG noted to have pO2 of 66 pCO2 of 75 pH of 7.153. His FiO2 was kept the same, we increased his respiratory rate up to 40, cut down his Lovenox to 30 mg subcu daily. Patient remained on propofol at 40 fentanyl at 0.5 Nimbex at 2 and Nepro at 40/40 IV fluid as at 20 mL per hour. I rounded on this patient, and finished my rounds, placed the orders on the chart, however as I was still in the ICU, patient underwent dialysis, and at the end of the dialysis, the patient lost his pulse, went pulseless, and he had pulseless electrical activity. I was called to the room and I ran the code. Patient r eceived CPR for less than 5 minutes. He received epinephrine 2. Bicarb 3. He was shocked 2, and he was placed on amiodarone bolus and amiodarone drip. Return of spontaneous circulation was noted within 5 minutes. Patient was placed back on mechanical ventilation, he was Ambu bag during the code. Place the patient on bicarb drip. And increase his FiO2 to 100%. And shortly after the code, left radial arterial line was placed. Patient was noted to be hemodynamically stable, did not require any pressors, he did receive 2 A of epinephrine only. And I placed him on amiodarone at the end of the code. And had a white complex tachycardia at the time when we were coding him. ABG during the code showed a pO2 of 44 pCO2 of 98 pH of 7.04 patient was reevaluated today on 02/23/2021, patient remains in the ICU, intubated and mechanically ventilated. He is on assist control rate of 45 v olume is 4 8000% FiO2 PEEP remains at 17. I did increase the PEEP to 18 today, and I switched the patient to oral amiodarone and start IV amiodarone. His ABG today showed a pO2 of 69 pCO2 of 81 pH of 7.15. Could not increased the PEEP any higher, as his peak airway pressure was significantly high, in the high 50s with a higher PEEP. And plateau pressure was also extremely high. In the high 50s and 40s. Patient remains on bicarb drip, remains on amiodarone drip, but I switch amiodarone to oral. He is on norepinephrine at 0.1 mcg/kg/m, patient is on propofol at 20 mcg/kg/m, Nimbex, and fentanyl at 0.5 mcg/kg/h. Remains on tube feeding, Nepro 40/40. Patient maintained a sinus rhythm through the night. Chest x-ray remained the same showing bilateral patchy infiltrates. CBC is relatively unremarkable, WBC count is 8.1 hemoglobin 9.6. The diarrhea is 4.58. BUN is 90 creatinine is 5.44. Asymmetric metabolic profile is relatively unremarkable. Objective - Vital Signs Vital signs: Vital Signs Temp 98.6 F 02/23/21 08:00 Pulse 84 02/23/21 10:00 Resp 40 H 02/23/21 10:00 BP 119/47 02/23/21 10:00 Pulse Ox 93 L 02/23/21 10:00 Intake & Output 02/22/21 02/23/21 02/23/21 18:59 06:59 18:59 Intake Total 2508.857 2735.190 885.218 Output Total 745 5 0 Balance 2406.557 6952.190 885.218 Weight 117.3 kg Intake: IV 1756 1476 492 Dextrose 5% in Water 1, 500 1200 400 000 ml @ 100 mls/hr IV . [id number] [facility] with Sodium Bicarb (1 Meq/ml) 150 ml Rx#:[id number] Pressure bag 36 36 12 Sodium Chloride 0.9% 1, 1220 240 80 000 ml @ 20 mls/hr IV . Q24H [facility] Rx#:[id number] Intake, IV Titration 372.857 779.190 203.218 Amount Amiodarone 450 mg In 250 Dextrose 5% in Water 250 ml @ 0.5 MG/MIN 16.667 mls/hr IV .Q15H [facility] Rx#: [id number] Cisatracurium 200 mg In 200 Sodium Chloride 0.9% 180 ml @ 1 MCG/KG/MIN 5.987 mls/hr IV .Q24H [facility] Rx#: [id number] Dextrose 5% in Water 1, 100 000 ml @ 100 mls/hr IV . [id number] [facility] with Sodium Bicarb (1 Meq/ml) 150 ml Rx#:[id number] Norepinephrine 32 mg In 80.643 236.207 3.218 Sodium Chloride 0.9% 218 ml @ 0.05 MCG/KG/MIN 2. 759 mls/hr IV .Q24H [facility] Rx#:[id number] fentaNYL (PF). 1,000 mcg 92.214 100 In Sodium Chloride 0.9% 80 ml @ Per Protocol IV . Q0M [facility] Rx#:[id number] propofoL 1,000 mg In 100 192.983 Empty Bag 1 bag @ Titrate IV .Q0M [facility] Rx#: [id number] Tube Feeding 320 480 160 Other 60 30 Output: Urine 10 5 0 Hemodialysis 735 Other: Voiding Method Indwelling Catheter Indwelling Catheter Indwelling Catheter ABP, PAP, CO, CI - Last Documented Arterial Blood Pressure 109/46 - Exam Physical Exam: Revealed a 65-year-old male intubated mechanically ventilated sedated and paralyzed. Head: Atraumatic, normocephalic. Endotracheal tube and orogastric tubes are intact. HEENT:[Neck is supple.] [No neck masses.] [No thyromegaly.] [No JVD.] PERRLA, EOMI, nonicteric. Chest: [Crackles at the bases persist, symmetrical chest expansion noted.. Cardiac Exam: [Normal S1 and S2, no S3 gallop, no murmur.] Abdomen: Obese, [Soft, nontender, no megaly, no rebound, no guarding, normal bowel sounds.] Extremities: [No clubbing, trace of bipedal edema, no cyanosis. Neurological Exam: Could not assess, patient is sedated and paralyzed. Skin: No rashes. Psychiatric: Could not assess. - Labs CBC & Chem 7: 02/23/21 06:18 02/23/21 05:00 Labs: Abnormal Lab Results - Last 24 Hours (Table) 02/22/21 02/23/21 02/23/21 Range/Units 15:30 05:00 05:14 RBC (4.30-5.90) m/uL Hgb (13.0-17.5) gm/dL Hct (39.0-53.0) % MCV (80.0-100.0) fL MCHC (31.0-37.0) g/dL RDW (11.5-15.5) % Lymphocytes # (1.0-4.8) k/uL D-Dimer (<0.60) mg/L FEU ABG pH 7.15 L* (7.35-7.45) ABG pCO2 81 H* (35-45) mmHg ABG pO2 69 L (83-108) mmHg ABG HCO3 28 H (21-25) mmol/L ABG Total CO2 31 H (19-24) mmol/L ABG O2 Saturation 92.4 L (94-97) % BUN 90 H (9-20) mg/dL Creatinine 5.44 H (0.66-1.25) mg/dL Glucose 133 H (74-99) mg/dL POC Glucose (mg/dL) 193 H (75-99) mg/dL Calcium 7.6 L (8.4-10.2) mg/dL 02/23/21 02/23/21 Range/Units 06:18 09:06 RBC 3.06 L (4.30-5.90) m/uL Hgb 9.6 L D (13.0-17.5) gm/dL Hct 31.2 L (39.0-53.0) % MCV 101.9 H (80.0-100.0) fL MCHC 30.6 L (31.0-37.0) g/dL RDW 17.1 H (11.5-15.5) % Lymphocytes # 0.9 L (1.0-4.8) k/uL D-Dimer 4.58 H (<0.60) mg/L FEU ABG pH (7.35-7.45) ABG pCO2 (35-45) mmHg ABG pO2 (83-108) mmHg ABG HCO3 (21-25) mmol/L ABG Total CO2 (19-24) mmol/L ABG O2 Saturation (94-97) % BUN (9-20) mg/dL Creatinine (0.66-1.25) mg/dL Glucose (74-99) mg/dL POC Glucose (mg/dL) (75-99) mg/dL Calcium (8.4-10.2) mg/dL Microbiology - Last 24 Hours (Table) 02/16/21 08:05 Blood Culture - Final Blood No Growth after 144 hours Assessment and Plan Assessment: Impression: Acute hypoxic failure secondary to COVID-19 pneumonia and ARDS. Elevated inflammatory markers secondary to above Troponin leak. Former smoker. Elevated liver enzymes secondary to COVID-19 pneumonia and infection Acute kidney injury Severe cardiomyopathy and LV dysfunction with ejection fraction of 20%. Cardiac arrest requiring CPR on 02/22/2021. Supraventricular tachycardia post cardiac arrest. On amiodarone. Will be transitioned to oral amiodarone. E coli urinary tract infection on cefepime Recommendation: Continue ventilatory support. PEEP was increased to 18. Continue sedation and paralysis. Continue antibiotics/cefepime. Continue nutritional support. Continue the vitamin cocktail. Patient received convalescent plasma and toci Continue hemodialysis. Continue Lovenox at 40 mg subcu daily. Discontinue IV amiodarone and placed on oral amiodarone. 200 twice a day Continue GI and DVT prophylaxis. Patient remains critically ill, prognosis is very poor, His daughter is planning to discuss his condition with his /her mother, and I believe the CODE STATUS should be changed to DO NOT RESUSCITATE, and possibly which is seriously consider comfort care measures on this patient. Very unlikely that the patient will pull through this. I would recommend comfort care, and that the patient go peacefully comfortably and dignified. Critical care time is over 30 minutes. Time with Patient: Greater than 30
[2021-02-23 12:04] LABS: Glucose,Whole Blood 157 mg/dL (75-99)
--- NOTE | 2021-02-23 16:20 | PN ---
PROGRESS NOTE Patient is seen for followup for acute kidney injury associated with underlying COVID pneumonia. The patient had been hyperkalemic and has poor urine output. He has been started on dialysis on 02/20/2021. He tolerated his treatment fairly well on 02/21/2001. However, yesterday on 02/22/2021 patient developed a cardiac arrest with PEA. His potassium was initially 6.1 prior to dialysis. However, the cardiac arrest occurred towards the end of treatment. This morning, patient is maintained on FiO2 of 100%. He continues to have no urine output. His potassium today was 5.1. He has significant respiratory acidosis and his heart rate is already set up for about 40 per minute on the vent. The bicarb drip was started this morning as well, pH was 7.1. The patient is tolerating tube feeds. He is sedated and on the vent. He continues to have some edema about 2+ bilaterally upper and lower extremities. Case is discussed with nursing staff. Patient is not personally examined. LABS: Labs show sodium 139, potassium 5.1, chloride 101, CO2 is 30, BUN 90, creatinine 5.4, hemoglobin 9.6 g/dL. ASSESSMENT: 1. Acute kidney injury, acute tubular necrosis, oliguric, renal failure associated with underlying COVID infection, sepsis, hypotension, currently maintained on dialysis. I will hold off on dialysis today. We will plan for possible treatment tomorrow depending on his electrolytes. 2. Hyperkalemia associated with acute kidney injury, currently improved post dialysis. 3. Status post cardiac arrest. 4. Acute hypoxic respiratory failure maintained on the vent with persistent respiratory acidosis. 5. COVID pneumonia. 6. Volume overload/third-spacing. The patient has tolerated about 1-1.5 L of ultrafiltration previously. 7. Supraventricular tachycardia with ventricular tachycardia as well during the cardiac arrest. Currently maintained on amiodarone. PLAN: Hold dialysis today. Reassess tomorrow based on labs. MMODL / IJN: [id number] /
[2021-02-23 17:44] LABS: Glucose,Whole Blood 135 mg/dL (75-99)
[2021-02-23] MEDS: INSULIN ASPART (NovoLOG) 100 UNIT/ML VIAL SQ SCH (17:49)
[2021-02-24 00:13] LABS: Glucose,Whole Blood 161 mg/dL (75-99)
[2021-02-24] MEDS: INSULIN ASPART (NovoLOG) 100 UNIT/ML VIAL SQ SCH ×5 (00:44→23:32)
[2021-02-24] MEDS: CISATRACURIUM 200 MG in SODIUM CHLORIDE 0.9% 180 ML IV SCH ×2 (02:40→15:37)
[2021-02-24] MEDS: SODIUM CHLORIDE 0.9% 1,000 ML IV SCH (02:40)
[2021-02-24 05:10] LABS: ABG Base Excess 1.6 mmol/L; ABG HCO3 30 mmol/L (21-25); ABG Oxygen Saturation 88.2 % (94-97); ABG TCO2 33 mmol/L (19-24); Allen Test Performed? Yes
[2021-02-24 05:14] LABS: ABG PCO2 81 mmHg (35-45); ABG PH 7.18 (7.35-7.45); ABG PO2 58 mmHg (83-108)
[2021-02-24 06:32] LABS: Calcium 7.7 mg/dL (8.4-10.2); Potassium 5.3 mmol/L (3.5-5.1)
[2021-02-24 06:53] LABS: Anisocytosis Slight; HCT 27.1 % (39.0-53.0); HGB 8.4 gm/dL (13.0-17.5); Hypochromasia Moderate; MCV 100.1 fL (80.0-100.0); Macrocytosis Slight; Mean Platelet Volume 9.2; Platelet Count 147 k/uL (150-450); Poikilocytosis Moderate; RDW 17.3 % (11.5-15.5)
[2021-02-24 07:43] LABS: Band Neutrophils % 5 %; Eosinophils # (M) 0.05 k/uL (0-0.7); Lymphocytes # (M) 0.99 k/uL (1.0-4.8); Metamyelocytes # (M) 0.05 k/uL (0); Metamyelocytes % 1 %; Monocytes # (M) 1.25 k/uL (0-1.0); Neutrophils % (M) 52 %; Nucleated Red Blood Cells 1 /100 WBC (0-0); Total Cells Counted 200; WBC 5.2 k/uL (3.8-10.6)
--- NOTE | 2021-02-24 07:43 | XR ---
EXAMINATION TYPE: XR chest 1V portable DATE OF EXAM: 02/24/2021 Comparison: 02/23/2021 Clinical History: 65-year-old male COVID pneumonia Findings: ET tube satisfactory. NG tube courses below the diaphragm. The patient is rotated towards the left. S ubclavian CVC on the left has its tip in the lower SVC. Hyperinflation. Diffuse interstitial changes and peripheral and basilar consolidation. Allowing for the rotation, not significantly changed. Impression: COPD with continued diffuse bilateral airspace disease, greatest at the lung bases.
[2021-02-24] MEDS: MIDODRINE 5 MG TAB PO SCH ×3 (07:53→17:52)
[2021-02-24] MEDS: DEXTROSE 5% IN WATER 1,000 ML with SODIUM BICARB (1 MEQ/ML) 150 ML IV SCH ×2 (08:26→17:48)
[2021-02-24] MEDS: CHOLECALCIFEROL 25 MCG (1000 IU) TABLET PO SCH (08:29)
[2021-02-24] MEDS: ASCORBIC ACID 500 MG TAB PO SCH (08:29)
[2021-02-24] MEDS: ASPIRIN 81 MG PO SCH (08:30)
[2021-02-24] MEDS: METOPROLOL TARTRATE 25 MG TAB PO SCH ×2 (08:30→20:08)
[2021-02-24] MEDS: FAMOTIDINE 20 MG/2 ML VIAL IV SCH (08:30)
[2021-02-24] MEDS: ENOXAPARIN 30 MG/0.3 ML SYRINGE SQ SCH (08:30)
[2021-02-24] MEDS: ZINC SULFATE 220 MG CAP PO SCH (08:30)
[2021-02-24] MEDS: AMIODARONE 200 MG TAB PO SCH ×2 (08:30→20:08)
[2021-02-24] MEDS: CHLORHEXIDINE GLUCONATE 15 ML CUP MUCOUS MEM SCH ×2 (08:30→20:08)
[2021-02-24] MEDS: DEXAMETHASONE SOD PHOSPHATE 10 MG/ML 1 ML VIAL IV SCH ×2 (08:30→20:08)
[2021-02-24 12:00] LABS: Glucose,Whole Blood 132 mg/dL (75-99)
--- NOTE | 2021-02-24 12:17 | P.PN ---
Subjective Progress Note Date: 02/24/21 Principal diagnosis: Acute hypoxic respiratory failure secondary to COVID-19 pneumonia and ARDS 02/13/2021, the patient is being seen for follow-up in intensive care unit. This is a 65-year-old -[place] male patient was admitted with Covid 19 related pneumonia and the patient was initially given high flow oxygen and later on BiPAP and because of ongoing failure, the patient was intubated and placed on a mechanical ventilator. He is a chronic smoker. He also smokes marijuana. The patient was intubated yesterday on 02/12/2021 because of respiratory failure related to Covid 19 related pneumonia. The patient is currently on assist control mode of ventilation. The patient is a rate of 36 with FiO2 of 9 90% 0% and a PEEP of 15 and tidal volume of 500. Your pressures around 41 metastatic pressure of 39. The patient remains sedated on propofol running at 60 mcg/kg per minute and the patient is also paralyzed at 2 mcg/kg per minute. Post intubation, the patient requires also pressors and currently norepinephrine is running at 0.02mcg/kg/per minute. The patient is mechanical ventilator. The patient normal saline at the rate of 75 mL an hour. Chest x-ray showing diffuse but the pulmonary patchy infiltrates. ET tube is in a good location. Note that the patient to telemetry markers from yesterday were quite elevated. LDH level was 4124 and the CRP was 20.5. The patient is currently on Decadron. The patient is also on Lovenox and the patient also received convalescent plasma and Tocilizumab. The LFTs are slightly elevated and the patient has some mild transaminitis related to COVID 19. Based on elevation of the d-dimer, the patient is being given 50 mg of Lovenox which is a half a milligram per KG every 12 hours. The blood gases from today showing a pH of 7.23 with a pCO2 of 63 and pO2 of 109. This was done and FiO2 of 90%. Blood work from today shows a d- dimer of more than 34, potassium level is down to 6.2 and the patient will need obviously D50 insulin along with 2 A of sodium bicarb. This hyperkalemia is related to acidosis. The patient's liver function tests are also elevated as the patient has mild transaminitis, ALT is 229, AST 307, LDH is 2716, pro calcitonin is at 0.14, CRP was 17.8. On 02/14/2021, I'm seeing the patient for a follow-up. This is a case of Covid 19 related pneumonia with secondary hypoxic respiratory failure and the patient has been intubated on 02/12/2021 and the patient is currently being seen in follow-up. On today's evaluation, the patient is on propofol which is running at 75 mg/kg per minute and the patient is also on Nimbex at 3 mcg/kg per minute. He is was sedated insipidus with the mechanical ventilator which is currently running at a tidal volume of 500 with a rate of 36 and it PEEP 15 and an FiO2 of 60%. The patient's blood gases from today showed a pH of 7.37 with a pCO2 of 64 and pO2 of 62 and this was on FiO2 of 60%. His chest x-ray from today is showing diffuse bilateral pulmonary infiltrates, essentially unchanged compared to yesterday and ET tube is in a good location. The patient's inflammatory markers on today's evaluation remain elevated although they're improving. The patient's LDH level is down to 2000 and his CRP level is down to 14 and the d-d shivam is still elevated at 24 although is improving. The patient is currently on Decadron 6 mg IV every 24 hours. He is also on Lovenox 50 mg subcu 3 times a day. He is also on a bicarb drip this was added yesterday as the patient was having significant acidosis which was mainly respiratory acidosis and secondary hyperkalemia. Potassium level is down to 5.2 and a pH currently is at 7.37 and as such the bicarb infusion can be discontinued. Creatinine is down to 0.7 and his also recovered from his acute kidney injury. He is on enteral feeding for nutritional support and currently this is running at 27 mL an hour of Nepro. The urine output is adequate and the patient's net fluid balance is +2.1 L over the past 24 hours. His weight is currently up to 101 kg. On today's evaluation for 2020, the patient remains sedated and paralyzed. The patient is on propofol at 75 mcg/kg per minute and the patient is also on Nimbex at 2 mcg/kg/m. The patient is calm and comfortable and successful mechanical ventilator which is running currently with tidal volume of 500, rate of 32, PEEP of 17 and an FiO2 of 50%. The blood is from today showed a pH of 7.3 with a pCO2 of 73 and pO2 of 52. This was done and a PEEP of 17. The chest x-ray is unchanged and there is diffuse bilateral pulmonary infiltrates right more than left lower lung more than the upper lobes. ET tube is high in the tr achea and it needs to be pushed then by another centimeter. Orogastric tube is in a good location. The patient otherwise is he was dynamically stable. He remains on Decadron. He remains on Lovenox 50 mg subcutaneous twice a day. He is on IV fluids and currently is receiving normal saline at the rate of 20 mL an hour. Fluid balance over the past 24 hours has been +2.2 L. The patient has been persistently in a positive fluid balance. As for the rest of the blood work, the patient's d-dimer is at 14 which is lower, his LDH is 1693, lower and the CRP is 10.3, lower. As for the rest of the electrolytes, his potassium level is at 5.6 and a serum bicarb is 34 with a BUN of 34 and a creatinine of 0.9. He is on enteral feeding for nutritional support and he is currently receiving Nepro at 27 mL an hour. No other major events overnight. I did do some ventilator changes on the patient y . yesterday which failed. I tried to wean off his feet and it failed and the patient became hypoxic and currently is a 17 of PEEP. he has a peak airway pressure in the setting of a pressure of 36 a nd 34 respectively On 02/16/2021, the patient is being seen in follow-up in the intensive care unit . The patient remains sedated and paralyzed. On today's evaluation, propofol is running at 70 mcg/kg per minute and the patient is also paralyzed with Nimbex running at 2 mcg/kg per minute. He is essentially the same as yesterday. Meanwhile, the patient remains on a mechanical ventilator. The patient is on the volumes second assist-control mode with a tidal volume of 500, rate of 32, FiO2 of 50% and a PEEP of 17. Again, these are the same ventilator settings as of yesterday. PH is at 7.31 with a pCO2 of 68 and pO2 of 60. Chest x-ray from today is not showing any major interval change. Orotracheal tube is in place. NG tube in place. There are bilateral pulmonary infiltrates and the findings are typical of ARDS. Meanwhile, the peak airway pressures at 36, static pressures are 34. These are the same numbers as of yesterday. The patient is a d-dimer of 9.6 with CRP of 7.6 and a LDH level of 1363. Currently is running a lower blood pressure with a systolic in the 90s. Lopressor has been held. Cardiac rhythm is sinus. IV fluids are running at disease an hour and the clarisse ent is not fluid balance is around 2.2 L positive over the past 24 hours. The patient is having a low-grade fever. His T-max was 100.2. Note that he is not covered with any antibiotics at this point in time. White cell count of 12.7. This of the blood work and electrolytes showed development of an acute kidney injury. Creatinine is up to 1.5 on today's evaluation and the rest of the blood work shows sodium 137, potassium of 5.1, LFTs are also showing some mild component of transaminitis. He is on enteral feeding for nutritional support and the patient is currently receiving Nepro 25 mL an hour. His urine output is in order of 40 cc hr 2020, the patient is not doing much in progress. His condition was stable yesterday and he continues to be sedated and paralyzed on today's evaluation where propofol is running at 65 mcg/kg per minute and the patient is also paralyzed on Nimbex at 2 mcg/kg per minute. Remains on the same ventilator setting with a tidal volume of 450, rate of 32, PEEP of 17 with a FiO2 of 50%. Chest x-ray findings and essentially unchanged over the past several days. The blood gases from today is showing a pH of 7.27 with a pCO2 of 81 and pO2 of 55. The peak airway pressure is around 35 and this static airway pressure is 33. The patient's hemodynamics is stable. He developed an acute kidney injury yesterday related to hypotension and he was given IV fluids and the creatinine is down to 1.2. His net fluid balance on today's evaluation is in the order of +2.2 L 4 02/15/2021 and +764 for 2020. He is currently on no pressors. Note that the patient had some fever since yesterday. The patient was pancultured. There is also still pending for now. No antibiotics was provided. The pro- calcitonin level came back quite elevated. The level is at 1.25. Meanwhile, he remains stable hemodynamically and his renal function is improving and the creatinine is down to 1.3. He is producing adequate amount of urine output for now. He is still running a low-grade fever White count at 13.6, inflammatory markers showed a d-dimer of 5.4 with a LDH level of 1230 and the CRP is at 6. He remains on steroids and the patient is receiving Decadron 6 mg IV every 12 hours. He did have an echocardiogram that showed impaired LV function with an ejection fraction of around 20-25%. He was trialed on dobutamine yesterday to augment his cardiac output and improve the renal failure. He did become tachycardic with dobutamine and this was discontinued. No other processes was given. He remains on enteral feeding for nutritional support and he is receiving Nepro at the rate of 27 mL an hour. Otherwise, no other major events occurring overnight. 02/18/2021, we are following this patient in the intensive care unit for a follow-up. Still sedated and paralyzed. An attempt to do the patient had paralytic holiday yesterday failed as the patient decompensated and the patient became hypoxic. Based on that, the patient placed back on a combination of propofol was still running at 65 mg/kg/m the Nimbex is running at 2 mcg/kg/h. As such, the patient remains sedated and paralyzed. Still on a mechanical ventilator. Essentially the same ventilator settings. Tidal volumes of 450 with a rate of 32 and a PEEP currently is at 17 with an FiO2 of 50%. The peak and static pressures remain elevated with a peak airway pressure of 34 ascending aortic pressure of 32. Blood gases from today showed a pH of 7.28 with a pCO2 of 78 and pO2 of 53. As such, oxygenation remains borderline and the patient is still undergoing permissive hypercapnia. Chest x-ray findings from today are essentially stable. Fluid balance was slightly positive and the patient was not receiving any pressors. In terms of inflammatory markers, the patient has an LDH of 1169 and a CRP of 1.1 and there is a slight rise in the creatinine which is up to 1.32. Note that his renal function continues to fluctuate. At one point he developed an acute kidney injury with a creatinine of 1.5. Otherwise, his white cell count is at 11.8 and the patient continues to have a lymphopenia. In terms of therapy, the patient remains on Decadron 6 mg IV twice a day. He remains on Lovenox 50 mg subcu every 12 hours. As mentioned earlier, he was diagnosed also having a cardiomyopathy with an ejection fraction of 20-25%. Enterofeeding is still with Nepro. The current rate is at 27 mL an hour and the patient is able to tolerate enteral feeding without any major issues. No diarrhea for now. fever. The urine culture that was done as part of a septic workup showed gram-negative bacillus and the patient is currently on IV cefepime. He was also given a dose of vancomycin for gram-positive cocci in his blood and is do not to be a coagulase-negative staph. His pro-calcitonin level was at 1.25 is currently coming down to 0.73 and essentially is improving. Sti ll running a low-grade fever with a T-max of 100.4. On today's evaluation of 02/19/2021, the patient remains intubated on a mechanical ventilator, sedated and paralyzed. The patient is a case of COVID-19 pneumonia with secondary ARDS. The patient is sedated and we're unable to cut down his sedation or paralytics over the past few days and the patient has not made a lot of progress. He remains sedated with propofol which is running at 55 mics respiratory/ minute and he is also on Nimbex at 2 mg/kg/h. The paralytic holiday was given and the patient failed due to oxygen desaturation. He remains on assist control mode with a tidal volume of 450 with a rate of 82 and the PEEP is at 17 and his FiO2 is at 60%. His chest x-ray from today is showing diffuse bilateral pulmonary infiltrates most on the lung bases. Extremities are quite diffuse. ET tube is in a good location. Orogastric tube is also in good location. The peak and static pressures today are 33 and 31 respectively and th e blood gases showing permissive hypercapnia with a pH of 7.23 and a pCO2 of 77 and pO2 of 78 and this was done and FiO2 of 60%. Unable to get this patient off paralytics because of a synchrony and oxygen desaturation. Hemodynamically stable on no pressors. His blood work shows an LDH of 898 which is up compared to yesterday and the CRP level is down to 1.6. He has developed an acute kidney injury in the creatinine is up to 2.5 with a mean of 18. The white cell count is at 12.4 and the patient continues to have a lymphopenia. The fluid balance over the past 24 hours has been +1 L and the patient is receiving IV fluids at 20 mL an hour and the patient is also on enteral feeding for nutritional support in the form of Nepro 27 mL an hour. He does have a E. coli urinary tract infection patient continues to be on IV cefepime. He is on no pressors for now. He is afebrile. No significant orotracheal secretions. No pressors. Patient was reevaluated today on 02/20/2021, remains intubated and mechanically ventilated. He is on assist control rate of 32 volume 450 FiO2 60% PEEP is 17. Patient is on permissive hypercapnia his ABG showed a pO2 of 69 pCO2 of 75 pH of 7.18. Peak airway pressure is 38 static pressure is 35. He is on propofol at 15 Nimbex at one and IV fluid 0.9 normal saline at 70 mL per hour. Patient is on enteral feeding in the form of Nepro 27 mL/h. Today I increased his tidal volume to 470 to improve his pCO2 and improve his pH. I started the patient on fentanyl. And his IV fluid was cut down to 50 mL/h. WBC count is 9.6 L. Hemoglobin is 12.9 d-dimer is 3.36 Potassium is 6. BUN is 99 creatinine is 4.15. LDH is 1032, C-reactive protein is 2.0. ALT is 94. Slightly elevated. Patient was reevaluated today on 02/21/2021, patient remains intubated and mechanically ventilated, his ventilator settings are assist control rate of 36 volume is 470 increased to 480 today. FiO2 is 60% PEEP of 17. His ABG showed a pO2 of 66 pCO2 of 84 and pH of 7.12. His peak airway pressures 40 to static pressure is 37. Patient remains on multiple drips including Nimbex at 1.2, he is off dopamine and Lasix, he is on fentanyl at 0.5, propofol at 40, and IV f luid 0.9 normal saline 20 mL per hour. Patient is on enteral feeding Nepro, is presently on hold. Patient had ultrafiltration last night, and he is undergoing hemodialysis today, this is the second treatment, the goal is to take 1 L off. Chest x-ray continues to show bilateral infiltrates, patient is not making a significant improvement over the last 24 hours, remains on relatively high FiO2 and the relatively high PEEP. Continues to have hypercapnia with a low pH of 7.12. Hence the thyroid volume was increased a bit today. ECG showed WBC 7.1 hemoglobin of 12.3. His d-dimer is 2.56. Potassium remains high and that's mostly because of his acidosis at 6.1. BUN is 98 creatinine is 4.90. Patient was reevaluated today on 02/22/2021, remains in the ICU, intubated and mechanically ventilated. Patient was on assist control rate of 36, tidal volume is 480, FiO2 60%, and PEEP of 17. ABG noted to have pO2 of 66 pCO2 of 75 pH of 7.153. His FiO2 was kept the same, we increased his respiratory rate up to 40, cut down his Lovenox to 30 mg subcu daily. Patient remained on propofol at 40 fentanyl at 0.5 Nimbex at 2 and Nepro at 40/40 IV fluid as at 20 mL per hour. I rounded on this patient, and finished my rounds, placed the orders on the chart, however as I was still in the ICU, patient underwent dialysis, and at the end of the dialysis, the patient lost his pulse, went pulseless, and he had pulseless electrical activity. I was called to the room and I ran the code. Patient r eceived CPR for less than 5 minutes. He received epinephrine 2. Bicarb 3. He was shocked 2, and he was placed on amiodarone bolus and amiodarone drip. Return of spontaneous circulation was noted within 5 minutes. Patient was placed back on mechanical ventilation, he was Ambu bag during the code. Place the patient on bicarb drip. And increase his FiO2 to 100%. And shortly after the code, left radial arterial line was placed. Patient was noted to be hemodynamically stable, did not require any pressors, he did receive 2 A of epinephrine only. And I placed him on amiodarone at the end of the code. And had a white complex tachycardia at the time when we were coding him. ABG during the code showed a pO2 of 44 pCO2 of 98 pH of 7.04 patient was reevaluated today on 02/23/2021, patient remains in the ICU, intubated and mechanically ventilated. He is on assist control rate of 45 v olume is 4 8000% FiO2 PEEP remains at 17. I did increase the PEEP to 18 today, and I switched the patient to oral amiodarone and start IV amiodarone. His ABG today showed a pO2 of 69 pCO2 of 81 pH of 7.15. Could not increased the PEEP any higher, as his peak airway pressure was significantly high, in the high 50s with a higher PEEP. And plateau pressure was also extremely high. In the high 50s and 40s. Patient remains on bicarb drip, remains on amiodarone drip, but I switch amiodarone to oral. He is on norepinephrine at 0.1 mcg/kg/m, patient is on propofol at 20 mcg/kg/m, Nimbex, and fentanyl at 0.5 mcg/kg/h. Remains on tube feeding, Nepro 40/40. Patient maintained a sinus rhythm through the night. Chest x-ray remained the same showing bilateral patchy infiltrates. CBC is relatively unremarkable, WBC count is 8.1 hemoglobin 9.6. The diarrhea is 4.58. BUN is 90 creatinine is 5.44. Asymmetric metabolic profile is relatively unremarkable. Patient was reevaluated today on 02/24/2021, patient remains in the ICU, intubated and mechanically ventilated. He is on assist control rate of 40 tidal volume is 485-85% PEEP remains at 18. ABG showed a pO2 of 58 pCO2 of 81 pH of 7.18. Peak airway pressure is 38, static pressure is 24. Chest x-ray is basically the same, continues to show bilateral patchy infiltrates. Patient remains on multiple drips including IV fluid at KVO, bicarbonate 100 mL/h, Nimbex S3 propofol at 20 norepinephrine at 0.12, and fentanyl at 0.05. Patient remains on enteral feeding using Nepro 36/36. Today I cut down his FiO2 to 75%, up to the ventilator settings exactly the same otherwise. Patient is supposed to have hemodialysis today. Family has been approached regarding CODE STATUS again, insists on full code. Although the patient had 2 cardiac arrests already while in the ICU. WBC count is 5.2 hemoglobin is 8.4. Electrolytes are normal renal profile is abnormal with a BUN of 118 creatinine 6.79. Patient is going to be dialyzed today. Patient remains sedated and paralyzed. And based on his chest x-ray findings, ABG findings, and his overall status, he is nowhere to be considered for any weaning except possibly cutting down the FiO2 from 85% to 80% or maybe 75% Objective - Vital Signs Vital signs: Vital Signs Temp 98.9 F 02/24/21 08:00 Pulse 90 02/24/21 10:00 Resp 40 H 02/24/21 10:00 BP 107/48 02/24/21 10:00 Pulse Ox 95 02/24/21 10:00 Intake & Output 02/23/21 02/24/21 02/24/21 18:59 06:59 18:59 Intake Total 2219.218 2753.549 906.418 Output Total 10 0 15 Balance 2209.218 2753.549 891.418 Weight 126.8 kg 126.8 kg Intake: IV 1386 1599 369 Dextrose 5% in Water 1, 1110 1300 300 000 ml @ 100 mls/hr IV . [id number] MARIO with Sodium Bicarb (1 Meq/ml) 150 ml Rx#:[id number] Pressure bag 36 39 9 Sodium Chloride 0.9% 1, 240 260 60 000 ml @ 20 mls/hr IV . Q24H MARIO Rx#:[id number] Intake, IV Titration 303.218 594.549 307.418 Amount Cisatracurium 200 mg In 200 194.594 79.833 Sodium Chloride 0.9% 180 ml @ 1 MCG/KG/MIN 5.987 mls/hr IV .Q24H MARIO Rx#: [id number] Norepinephrine 32 mg In 3.218 184.452 27.585 Sodium Chloride 0.9% 218 ml @ 0.05 MCG/KG/MIN 2. 759 mls/hr IV .Q24H MARIO Rx#:[id number] cefTRIAXone 1 gm In 100 Sodium Chloride 0.9% 50 ml @ 100 mls/hr IVPB Q24HR MARIO Rx#:[id number] fentaNYL (PF). 1,000 mcg 79.442 In Sodium Chloride 0.9% 80 ml @ Per Protocol IV . Q0M MARIO Rx#:[id number] propofoL 1,000 mg In 100 136.061 100 Empty Bag 1 bag @ Titrate IV .Q0M MARIO Rx#: [id number] Tube Feeding 440 560 120 Other 90 110 Output: Urine 10 0 15 Other: Voiding Method Indwelling Catheter Indwelling Catheter Indwelling Catheter # Voids 45 ABP, PAP, CO, CI - Last Documented Arterial Blood Pressure 107/40 - Exam Physical Exam: Revealed a 65-year-old male intubated mechanically ventilated sedated and paralyzed. Head: Atraumatic, normocephalic. Endotracheal tube and orogastric tubes are intact. HEENT:[Neck is supple.] [No neck masses.] [No thyromegaly.] [No JVD.] PERRLA, EOMI, nonicteric. Chest: [Crackles at the bases persist, symmetrical chest expansion noted.. Cardiac Exam: [Normal S1 and S2, no S3 gallop, no murmur.] Abdomen: Obese, [Soft, nontender, no megaly, no rebound, no guarding, normal bowel sounds.] Extremities: [No clubbing, 1+ bipedal edema, no cyanosis. Neurological Exam: Could not assess, patient is sedated and paralyzed. Skin: No rashes. Psychiatric: Could not assess. - Labs CBC & Chem 7: 02/24/21 05:00 02/24/21 05:00 Labs: Abnormal Lab Results - Last 24 Hours (Table) 02/23/21 02/24/21 02/24/21 Range/Units 17:40 00:08 04:45 RBC (4.30-5.90) m/uL Hgb (13.0-17.5) gm/dL Hct (39.0-53.0) % MCV (80.0-100.0) fL RDW (11.5-15.5) % Plt Count (150-450) k/uL Lymphocytes # (Manual) (1.0-4.8) k/uL Monocytes # (Manual) (0-1.0) k/uL Metamyelocytes # (Man) (0) k/uL Nucleated RBCs (0-0) /100 WBC D-Dimer (<0.60) mg/L FEU ABG pH 7.18 L* (7.35-7.45) ABG pCO2 81 H* (35-45) mmHg ABG pO2 58 L* (83-108) mmHg ABG HCO3 30 H (21-25) mmol/L ABG Total CO2 33 H (19-24) mmol/L ABG O2 Saturation 88.2 L (94-97) % Potassium (3.5-5.1) mmol/L BUN (9-20) mg/dL Creatinine (0.66-1.25) mg/dL Glucose (74-99) mg/dL POC Glucose (mg/dL) 135 H 161 H (75-99) mg/dL Calcium (8.4-10.2) mg/dL 02/24/21 02/24/21 02/24/21 Range/Units 05:00 05:00 05:00 RBC 2.70 L (4.30-5.90) m/uL Hgb 8.4 L (13.0-17.5) gm/dL Hct 27.1 L (39.0-53.0) % MCV 100.1 H (80.0-100.0) fL RDW 17.3 H (11.5-15.5) % Plt Count 147 L (150-450) k/uL Lymphocytes # (Manual) 0.99 L (1.0-4.8) k/uL Monocytes # (Manual) 1.25 H (0-1.0) k/uL Metamyelocytes # (Man) 0.05 H (0) k/uL Nucleated RBCs 1 H (0-0) /100 WBC D-Dimer 4.25 H (<0.60) mg/L FEU ABG pH (7.35-7.45) ABG pCO2 (35-45) mmHg ABG pO2 (83-108) mmHg ABG HCO3 (21-25) mmol/L ABG Total CO2 (19-24) mmol/L ABG O2 Saturation (94-97) % Potassium 5.3 H (3.5-5.1) mmol/L BUN 118 H* (9-20) mg/dL Creatinine 6.79 H (0.66-1.25) mg/dL Glucose 130 H (74-99) mg/dL POC Glucose (mg/dL) (75-99) mg/dL Calcium 7.7 L (8.4-10.2) mg/dL 02/24/21 Range/Units 11:54 RBC (4.30-5.90) m/uL Hgb (13.0-17.5) gm/dL Hct (39.0-53.0) % MCV (80.0-100.0) fL RDW (11.5-15.5) % Plt Count (150-450) k/uL Lymphocytes # (Manual) (1.0-4.8) k/uL Monocytes # (Manual) (0-1.0) k/uL Metamyelocytes # (Man) (0) k/uL Nucleated RBCs (0-0) /100 WBC D-Dimer (<0.60) mg/L FEU ABG pH (7.35-7.45) ABG pCO2 (35-45) mmHg ABG pO2 (83-108) mmHg ABG HCO3 (21-25) mmol/L ABG Total CO2 (19-24) mmol/L ABG O2 Saturation (94-97) % Potassium (3.5-5.1) mmol/L BUN (9-20) mg/dL Creatinine (0.66-1.25) mg/dL Glucose (74-99) mg/dL POC Glucose (mg/dL) 132 H (75-99) mg/dL Calcium (8.4-10.2) mg/dL Assessment and Plan Assessment: Impression: Acute hypoxic failure secondary to COVID-19 pneumonia and ARDS. Elevated inflammatory markers secondary to above Troponin leak. Former smoker. Elevated liver enzymes secondary to COVID-19 pneumonia and infection Acute kidney injury Severe cardiomyopathy and LV dysfunction with ejection fraction of 20%. Cardiac arrest requiring CPR 2. Supraventricular tachycardia post cardiac arrest. Presently on amiodarone via nasogastric tube. 200 mg twice a day. E coli urinary tract infection, cefepime was changed to Rocephin. Recommendation: Continue ventilatory support. PEEP was increased to 18. Continue Decadron at 6 mg IV push twice a day. Continue Lovenox at 30 mg subcu daily. Continue sedation and paralysis. Continue antibiotics/cefepime. Continue nutritional support. Continue the vitamin cocktail. Patient received convalescent plasma and toci Continue hemodialysis. Continue amiodarone 200 mg twice a day Continue GI and DVT prophylaxis. Patient is on Pepcid 20 mg IV push daily. Patient remains critically ill, prognosis is very poor, Critical care time is over 30 minutes. Time with Patient: Greater than 30
--- NOTE | 2021-02-24 12:50 | CDI ---
Documentation Clarification Form Date: 02/24/2021 11:52:29 AM From: Shyla Madden RN, CCDS Admit Date: 02/09/2021 11:00:00 PM Patient Name: Holden Putnam Visit Number: [id number] Discharge Date: ATTENTION: The Clinical Documentation Specialists (CDI) and [facility] Coding Staff appreciate your assistance in clarifying documentation. Please respond to the clarification below the line at the bottom and electronically sign. The CDI & [facility] Coding staff will review the response and follow-up if needed. Please note: Queries are made part of the Legal Health Record. If you have any questions, please contact the author of this message via ITS. Dr. Saniya Wilkerson E. coli UTI is documented the progress notes starting on 02/19/20. Additional clarification regarding this diagnosis is requested. History/Risk Factors: Covid pneumonia, Hypoxic respiratory failure Clinical Indicators: 65-year-old male present on 02/09 and was positive for COVID. 02/12 Event note: Worsening hypoxia for which he was intubated. The patient had a Cosby catheter placed at that time. 02/11 UA: small blood, Ur Leukocyte Esterase negative, Urine mucus rear. 02/16UA: Urine Leukocyte Esterase Small, Urine WBC 11, Urine Bacteria Many; Urine culture Final: E.Coli 02/16 Vital Signs: @ 12:00 116/61 109 32 93 % mechanical ventilation 02/16 WBC: 12.7 Treatment Vancomycin 2,000 MG IVPB X1 (02/17) 1,750 MG IVPB 02/18 (DC) Cefepime 2 GM IVPB Q 8 HRS. 02/17-02/21 Antibiotics Please clarify if there is an additional diagnosis associated with the UTI: [ ] E. coli UTI only [ ] Sepsis due to E.coli UTI [ ] Catheter associated E. coli UTI, Not POA [ ] Contaminated specimen [ ] Other, please specify [ ] Unable to determine (Template Last Revised: January 2021) E. coli UTI only [facility]
[2021-02-24] MEDS: NOREPINEPHRINE 32 MG in SODIUM CHLORIDE 0.9% 218 ML IV SCH (14:11)
[2021-02-24] MEDS: fentaNYL (PF). 1,000 MCG in SODIUM CHLORIDE 0.9% 80 ML IV SCH (15:37)
[2021-02-24 17:36] LABS: Glucose,Whole Blood 139 mg/dL (75-99)
--- NOTE | 2021-02-24 17:39 | PN ---
PROGRESS NOTE Patient is seen for followup for acute kidney injury, acute tubular necrosis, oliguric, maintained on dialysis associated with underlying COVID infection, hypotension. Patient is also status post cardiac arrest. He is currently on FiO2 85%. He remains with no urine output. We will plan for dialysis today. PHYSICAL EXAMINATION: On examination, blood pressure was noted to be 107/48, heart rate of 101 per minute. He is afebrile. Case is discussed with nursing staff. Patient is not examined. He continues to have edema as noted from just outside the room. He remains on FiO2 about 85% with high PEEP. He has been tolerating tube feeds. Patient is maintained on sedation with a fentanyl drip. LABS: Sodium 137, potassium 5.3, BUN 118, serum creatinine 6.79. CO2 is 30, hemoglobin 8.4 g/dL. ASSESSMENT: 1. Acute kidney injury, acute tubular necrosis, currently oliguric, maintained on dialysis. We will plan for treatment today and possibly in a.m. as well. If patient is able to tolerate his treatment today, we will plan for hemodialysis treatment tomorrow. 2. Hyperkalemia secondary to acute kidney injury and hypercatabolic state, improved with dialysis. 3. Acute hypoxic respiratory failure, currently on the vent. 4. COVID pneumonia, maintained on Decadron. 5. Atrial fibrillation with episode of ventricular tachycardia, currently maintained on amiodarone. 6. Status post cardiac arrest. 7. Volume overload/third spacing. PLAN: Hemodialysis today. We will plan for a treatment tomorrow as well if patient is able to tolerate. MMODL / IJN: [id number] /
[2021-02-24 23:22] LABS: Glucose,Whole Blood 149 mg/dL (75-99)
[2021-02-25 04:10] LABS: ABG Base Excess 4.3 mmol/L; ABG HCO3 32 mmol/L (21-25); ABG Oxygen Saturation 79.9 % (94-97); ABG PH 7.22 (7.35-7.45); ABG TCO2 35 mmol/L (19-24); Allen Test Performed? Yes
[2021-02-25 04:14] LABS: ABG PCO2 79 mmHg (35-45); ABG PO2 48 mmHg (83-108)
[2021-02-25] MEDS: SODIUM CHLORIDE 0.9% 1,000 ML IV SCH (04:27)
[2021-02-25] MEDS: fentaNYL (PF). 1,000 MCG in SODIUM CHLORIDE 0.9% 80 ML IV SCH ×2 (04:29→23:52)
[2021-02-25] MEDS ORDERED: ATROPINE SULFATE 0.1 MG/ML 10ML SYRINGE IV STA (04:30)
[2021-02-25] MEDS ORDERED: EPINEPHrine 10 ML SYRINGE (0.1 MG/ML) IV STA (04:30)
[2021-02-25] MEDS: CISATRACURIUM 200 MG in SODIUM CHLORIDE 0.9% 180 ML IV SCH ×2 (04:31→14:23)
[2021-02-25] MEDS: MIDODRINE 5 MG TAB PO SCH ×4 (06:10→18:27)
[2021-02-25 06:15] LABS: Anisocytosis Slight; HCT 22.9 % (39.0-53.0); HGB 7.7 gm/dL (13.0-17.5); Hypochromasia Slight; MCH 33.2 pg (25.0-35.0); MCHC 33.7 g/dL (31.0-37.0); MCV 98.6 fL (80.0-100.0); Macrocytosis Slight; Mean Platelet Volume 8.8; Platelet Count 161 k/uL (150-450); Poikilocytosis Moderate; RBC 2.32 m/uL (4.30-5.90); RDW 16.9 % (11.5-15.5)
[2021-02-25 06:28] LABS: Calcium 7.7 mg/dL (8.4-10.2); Potassium 5.2 mmol/L (3.5-5.1)
--- NOTE | 2021-02-25 07:04 | XR ---
EXAMINATION TYPE: XR chest 1V portable DATE OF EXAM: 02/25/2021 COMPARISON: Chest x-ray 02/24/2021 HISTORY: Covid pneumonia TECHNIQUE: Single frontal view of the chest is obtained. FINDINGS: Pleural-parenchymal changes are similar. Cardiac mediastinal silhouette shows no interval change. Endotracheal tube, orogastric tube, left-sided central venous catheter are stable. No evident pneumothorax, difficult to exclude effusion. IMPRESSION: Findings consistent with patient's history of pneumonia, correlate for ARDS, edema
[2021-02-25 07:16] LABS: Band Neutrophils % 5 %; Metamyelocytes # (M) 0.08 k/uL (0); Metamyelocytes % 1 %; Neutrophils % (M) 46 %; Nucleated Red Blood Cells 8 /100 WBC (0-0); Total Cells Counted 200
[2021-02-25 07:17] LABS: Eosinophils # (M) 0.16 k/uL (0-0.7); Lymphocytes # (M) 2.03 k/uL (1.0-4.8); Monocytes # (M) 1.72 k/uL (0-1.0); WBC 7.8 k/uL (3.8-10.6)
[2021-02-25 07:18] LABS: Basophilic Stippling Present; Polychromasia Present
[2021-02-25 07:33] LABS: Glucose,Whole Blood 147 mg/dL (75-99)
[2021-02-25] MEDS: INSULIN ASPART (NovoLOG) 100 UNIT/ML VIAL SQ SCH ×3 (07:43→18:25)
[2021-02-25] MEDS: AMIODARONE 200 MG TAB PO SCH ×2 (08:44→21:10)
[2021-02-25] MEDS: ZINC SULFATE 220 MG CAP PO SCH (08:44)
[2021-02-25] MEDS: CHOLECALCIFEROL 25 MCG (1000 IU) TABLET PO SCH (08:44)
[2021-02-25] MEDS: METOPROLOL TARTRATE 25 MG TAB PO SCH ×2 (08:45→21:10)
[2021-02-25] MEDS: FAMOTIDINE 20 MG/2 ML VIAL IV SCH ×2 (08:45→21:10)
[2021-02-25] MEDS: CHLORHEXIDINE GLUCONATE 15 ML CUP MUCOUS MEM SCH ×2 (08:46→21:10)
[2021-02-25] MEDS: ASCORBIC ACID 500 MG TAB PO SCH (08:47)
[2021-02-25] MEDS: DEXAMETHASONE SOD PHOSPHATE 10 MG/ML 1 ML VIAL IV SCH ×2 (08:53→21:10)
[2021-02-25] MEDS: ASPIRIN 81 MG PO SCH (09:27)
--- NOTE | 2021-02-25 10:00 | P.PN ---
Subjective Progress Note Date: 02/25/21 Principal diagnosis: Acute hypoxic respiratory failure secondary to COVID-19 pneumonia and ARDS 02/13/2021, the patient is being seen for follow-up in intensive care unit. This is a 65-year-old -[place] male patient was admitted with Covid 19 related pneumonia and the patient was initially given high flow oxygen and later on BiPAP and because of ongoing failure, the patient was intubated and placed on a mechanical ventilator. He is a chronic smoker. He also smokes marijuana. The patient was intubated yesterday on 02/12/2021 because of respiratory failure related to Covid 19 related pneumonia. The patient is currently on assist control mode of ventilation. The patient is a rate of 36 with FiO2 of 9 90% 0% and a PEEP of 15 and tidal volume of 500. Your pressures around 41 metastatic pressure of 39. The patient remains sedated on propofol running at 60 mcg/kg per minute and the patient is also paralyzed at 2 mcg/kg per minute. Post intubation, the patient requires also pressors and currently norepinephrine is running at 0.02mcg/kg/per minute. The patient is mechanical ventilator. The patient normal saline at the rate of 75 mL an hour. Chest x-ray showing diffuse but the pulmonary patchy infiltrates. ET tube is in a good location. Note that the patient to telemetry markers from yesterday were quite elevated. LDH level was 4124 and the CRP was 20.5. The patient is currently on Decadron. The patient is also on Lovenox and the patient also received convalescent plasma and Tocilizumab. The LFTs are slightly elevated and the patient has some mild transaminitis related to COVID 19. Based on elevation of the d-dimer, the patient is being given 50 mg of Lovenox which is a half a milligram per KG every 12 hours. The blood gases from today showing a pH of 7.23 with a pCO2 of 63 and pO2 of 109. This was done and FiO2 of 90%. Blood work from today shows a d- dimer of more than 34, potassium level is down to 6.2 and the patient will need obviously D50 insulin along with 2 A of sodium bicarb. This hyperkalemia is related to acidosis. The patient's liver function tests are also elevated as the patient has mild transaminitis, ALT is 229, AST 307, LDH is 2716, pro calcitonin is at 0.14, CRP was 17.8. On 02/14/2021, I'm seeing the patient for a follow-up. This is a case of Covid 19 related pneumonia with secondary hypoxic respiratory failure and the patient has been intubated on 02/12/2021 and the patient is currently being seen in follow-up. On today's evaluation, the patient is on propofol which is running at 75 mg/kg per minute and the patient is also on Nimbex at 3 mcg/kg per minute. He is was sedated insipidus with the mechanical ventilator which is currently running at a tidal volume of 500 with a rate of 36 and it PEEP 15 and an FiO2 of 60%. The patient's blood gases from today showed a pH of 7.37 with a pCO2 of 64 and pO2 of 62 and this was on FiO2 of 60%. His chest x-ray from today is showing diffuse bilateral pulmonary infiltrates, essentially unchanged compared to yesterday and ET tube is in a good location. The patient's inflammatory markers on today's evaluation remain elevated although they're improving. The patient's LDH level is down to 2000 and his CRP level is down to 14 and the d-d shivam is still elevated at 24 although is improving. The patient is currently on Decadron 6 mg IV every 24 hours. He is also on Lovenox 50 mg subcu 3 times a day. He is also on a bicarb drip this was added yesterday as the patient was having significant acidosis which was mainly respiratory acidosis and secondary hyperkalemia. Potassium level is down to 5.2 and a pH currently is at 7.37 and as such the bicarb infusion can be discontinued. Creatinine is down to 0.7 and his also recovered from his acute kidney injury. He is on enteral feeding for nutritional support and currently this is running at 27 mL an hour of Nepro. The urine output is adequate and the patient's net fluid balance is +2.1 L over the past 24 hours. His weight is currently up to 101 kg. On today's evaluation for 2020, the patient remains sedated and paralyzed. The patient is on propofol at 75 mcg/kg per minute and the patient is also on Nimbex at 2 mcg/kg/m. The patient is calm and comfortable and successful mechanical ventilator which is running currently with tidal volume of 500, rate of 32, PEEP of 17 and an FiO2 of 50%. The blood is from today showed a pH of 7.3 with a pCO2 of 73 and pO2 of 52. This was done and a PEEP of 17. The chest x-ray is unchanged and there is diffuse bilateral pulmonary infiltrates right more than left lower lung more than the upper lobes. ET tube is high in the tr achea and it needs to be pushed then by another centimeter. Orogastric tube is in a good location. The patient otherwise is he was dynamically stable. He remains on Decadron. He remains on Lovenox 50 mg subcutaneous twice a day. He is on IV fluids and currently is receiving normal saline at the rate of 20 mL an hour. Fluid balance over the past 24 hours has been +2.2 L. The patient has been persistently in a positive fluid balance. As for the rest of the blood work, the patient's d-dimer is at 14 which is lower, his LDH is 1693, lower and the CRP is 10.3, lower. As for the rest of the electrolytes, his potassium level is at 5.6 and a serum bicarb is 34 with a BUN of 34 and a creatinine of 0.9. He is on enteral feeding for nutritional support and he is currently receiving Nepro at 27 mL an hour. No other major events overnight. I did do some ventilator changes on the patient y . yesterday which failed. I tried to wean off his feet and it failed and the patient became hypoxic and currently is a 17 of PEEP. he has a peak airway pressure in the setting of a pressure of 36 a nd 34 respectively On 02/16/2021, the patient is being seen in follow-up in the intensive care unit . The patient remains sedated and paralyzed. On today's evaluation, propofol is running at 70 mcg/kg per minute and the patient is also paralyzed with Nimbex running at 2 mcg/kg per minute. He is essentially the same as yesterday. Meanwhile, the patient remains on a mechanical ventilator. The patient is on the volumes second assist-control mode with a tidal volume of 500, rate of 32, FiO2 of 50% and a PEEP of 17. Again, these are the same ventilator settings as of yesterday. PH is at 7.31 with a pCO2 of 68 and pO2 of 60. Chest x-ray from today is not showing any major interval change. Orotracheal tube is in place. NG tube in place. There are bilateral pulmonary infiltrates and the findings are typical of ARDS. Meanwhile, the peak airway pressures at 36, static pressures are 34. These are the same numbers as of yesterday. The patient is a d-dimer of 9.6 with CRP of 7.6 and a LDH level of 1363. Currently is running a lower blood pressure with a systolic in the 90s. Lopressor has been held. Cardiac rhythm is sinus. IV fluids are running at disease an hour and the clarisse ent is not fluid balance is around 2.2 L positive over the past 24 hours. The patient is having a low-grade fever. His T-max was 100.2. Note that he is not covered with any antibiotics at this point in time. White cell count of 12.7. This of the blood work and electrolytes showed development of an acute kidney injury. Creatinine is up to 1.5 on today's evaluation and the rest of the blood work shows sodium 137, potassium of 5.1, LFTs are also showing some mild component of transaminitis. He is on enteral feeding for nutritional support and the patient is currently receiving Nepro 25 mL an hour. His urine output is in order of 40 cc hr 2020, the patient is not doing much in progress. His condition was stable yesterday and he continues to be sedated and paralyzed on today's evaluation where propofol is running at 65 mcg/kg per minute and the patient is also paralyzed on Nimbex at 2 mcg/kg per minute. Remains on the same ventilator setting with a tidal volume of 450, rate of 32, PEEP of 17 with a FiO2 of 50%. Chest x-ray findings and essentially unchanged over the past several days. The blood gases from today is showing a pH of 7.27 with a pCO2 of 81 and pO2 of 55. The peak airway pressure is around 35 and this static airway pressure is 33. The patient's hemodynamics is stable. He developed an acute kidney injury yesterday related to hypotension and he was given IV fluids and the creatinine is down to 1.2. His net fluid balance on today's evaluation is in the order of +2.2 L 4 02/15/2021 and +764 for 2020. He is currently on no pressors. Note that the patient had some fever since yesterday. The patient was pancultured. There is also still pending for now. No antibiotics was provided. The pro- calcitonin level came back quite elevated. The level is at 1.25. Meanwhile, he remains stable hemodynamically and his renal function is improving and the creatinine is down to 1.3. He is producing adequate amount of urine output for now. He is still running a low-grade fever White count at 13.6, inflammatory markers showed a d-dimer of 5.4 with a LDH level of 1230 and the CRP is at 6. He remains on steroids and the patient is receiving Decadron 6 mg IV every 12 hours. He did have an echocardiogram that showed impaired LV function with an ejection fraction of around 20-25%. He was trialed on dobutamine yesterday to augment his cardiac output and improve the renal failure. He did become tachycardic with dobutamine and this was discontinued. No other processes was given. He remains on enteral feeding for nutritional support and he is receiving Nepro at the rate of 27 mL an hour. Otherwise, no other major events occurring overnight. 02/18/2021, we are following this patient in the intensive care unit for a follow-up. Still sedated and paralyzed. An attempt to do the patient had paralytic holiday yesterday failed as the patient decompensated and the patient became hypoxic. Based on that, the patient placed back on a combination of propofol was still running at 65 mg/kg/m the Nimbex is running at 2 mcg/kg/h. As such, the patient remains sedated and paralyzed. Still on a mechanical ventilator. Essentially the same ventilator settings. Tidal volumes of 450 with a rate of 32 and a PEEP currently is at 17 with an FiO2 of 50%. The peak and static pressures remain elevated with a peak airway pressure of 34 ascending aortic pressure of 32. Blood gases from today showed a pH of 7.28 with a pCO2 of 78 and pO2 of 53. As such, oxygenation remains borderline and the patient is still undergoing permissive hypercapnia. Chest x-ray findings from today are essentially stable. Fluid balance was slightly positive and the patient was not receiving any pressors. In terms of inflammatory markers, the patient has an LDH of 1169 and a CRP of 1.1 and there is a slight rise in the creatinine which is up to 1.32. Note that his renal function continues to fluctuate. At one point he developed an acute kidney injury with a creatinine of 1.5. Otherwise, his white cell count is at 11.8 and the patient continues to have a lymphopenia. In terms of therapy, the patient remains on Decadron 6 mg IV twice a day. He remains on Lovenox 50 mg subcu every 12 hours. As mentioned earlier, he was diagnosed also having a cardiomyopathy with an ejection fraction of 20-25%. Enterofeeding is still with Nepro. The current rate is at 27 mL an hour and the patient is able to tolerate enteral feeding without any major issues. No diarrhea for now. fever. The urine culture that was done as part of a septic workup showed gram-negative bacillus and the patient is currently on IV cefepime. He was also given a dose of vancomycin for gram-positive cocci in his blood and is do not to be a coagulase-negative staph. His pro-calcitonin level was at 1.25 is currently coming down to 0.73 and essentially is improving. Sti ll running a low-grade fever with a T-max of 100.4. On today's evaluation of 02/19/2021, the patient remains intubated on a mechanical ventilator, sedated and paralyzed. The patient is a case of COVID-19 pneumonia with secondary ARDS. The patient is sedated and we're unable to cut down his sedation or paralytics over the past few days and the patient has not made a lot of progress. He remains sedated with propofol which is running at 55 mics respiratory/ minute and he is also on Nimbex at 2 mg/kg/h. The paralytic holiday was given and the patient failed due to oxygen desaturation. He remains on assist control mode with a tidal volume of 450 with a rate of 82 and the PEEP is at 17 and his FiO2 is at 60%. His chest x-ray from today is showing diffuse bilateral pulmonary infiltrates most on the lung bases. Extremities are quite diffuse. ET tube is in a good location. Orogastric tube is also in good location. The peak and static pressures today are 33 and 31 respectively and th e blood gases showing permissive hypercapnia with a pH of 7.23 and a pCO2 of 77 and pO2 of 78 and this was done and FiO2 of 60%. Unable to get this patient off paralytics because of a synchrony and oxygen desaturation. Hemodynamically stable on no pressors. His blood work shows an LDH of 898 which is up compared to yesterday and the CRP level is down to 1.6. He has developed an acute kidney injury in the creatinine is up to 2.5 with a mean of 18. The white cell count is at 12.4 and the patient continues to have a lymphopenia. The fluid balance over the past 24 hours has been +1 L and the patient is receiving IV fluids at 20 mL an hour and the patient is also on enteral feeding for nutritional support in the form of Nepro 27 mL an hour. He does have a E. coli urinary tract infection patient continues to be on IV cefepime. He is on no pressors for now. He is afebrile. No significant orotracheal secretions. No pressors. Patient was reevaluated today on 02/20/2021, remains intubated and mechanically ventilated. He is on assist control rate of 32 volume 450 FiO2 60% PEEP is 17. Patient is on permissive hypercapnia his ABG showed a pO2 of 69 pCO2 of 75 pH of 7.18. Peak airway pressure is 38 static pressure is 35. He is on propofol at 15 Nimbex at one and IV fluid 0.9 normal saline at 70 mL per hour. Patient is on enteral feeding in the form of Nepro 27 mL/h. Today I increased his tidal volume to 470 to improve his pCO2 and improve his pH. I started the patient on fentanyl. And his IV fluid was cut down to 50 mL/h. WBC count is 9.6 L. Hemoglobin is 12.9 d-dimer is 3.36 Potassium is 6. BUN is 99 creatinine is 4.15. LDH is 1032, C-reactive protein is 2.0. ALT is 94. Slightly elevated. Patient was reevaluated today on 02/21/2021, patient remains intubated and mechanically ventilated, his ventilator settings are assist control rate of 36 volume is 470 increased to 480 today. FiO2 is 60% PEEP of 17. His ABG showed a pO2 of 66 pCO2 of 84 and pH of 7.12. His peak airway pressures 40 to static pressure is 37. Patient remains on multiple drips including Nimbex at 1.2, he is off dopamine and Lasix, he is on fentanyl at 0.5, propofol at 40, and IV f luid 0.9 normal saline 20 mL per hour. Patient is on enteral feeding Nepro, is presently on hold. Patient had ultrafiltration last night, and he is undergoing hemodialysis today, this is the second treatment, the goal is to take 1 L off. Chest x-ray continues to show bilateral infiltrates, patient is not making a significant improvement over the last 24 hours, remains on relatively high FiO2 and the relatively high PEEP. Continues to have hypercapnia with a low pH of 7.12. Hence the thyroid volume was increased a bit today. ECG showed WBC 7.1 hemoglobin of 12.3. His d-dimer is 2.56. Potassium remains high and that's mostly because of his acidosis at 6.1. BUN is 98 creatinine is 4.90. Patient was reevaluated today on 02/22/2021, remains in the ICU, intubated and mechanically ventilated. Patient was on assist control rate of 36, tidal volume is 480, FiO2 60%, and PEEP of 17. ABG noted to have pO2 of 66 pCO2 of 75 pH of 7.153. His FiO2 was kept the same, we increased his respiratory rate up to 40, cut down his Lovenox to 30 mg subcu daily. Patient remained on propofol at 40 fentanyl at 0.5 Nimbex at 2 and Nepro at 40/40 IV fluid as at 20 mL per hour. I rounded on this patient, and finished my rounds, placed the orders on the chart, however as I was still in the ICU, patient underwent dialysis, and at the end of the dialysis, the patient lost his pulse, went pulseless, and he had pulseless electrical activity. I was called to the room and I ran the code. Patient r eceived CPR for less than 5 minutes. He received epinephrine 2. Bicarb 3. He was shocked 2, and he was placed on amiodarone bolus and amiodarone drip. Return of spontaneous circulation was noted within 5 minutes. Patient was placed back on mechanical ventilation, he was Ambu bag during the code. Place the patient on bicarb drip. And increase his FiO2 to 100%. And shortly after the code, left radial arterial line was placed. Patient was noted to be hemodynamically stable, did not require any pressors, he did receive 2 A of epinephrine only. And I placed him on amiodarone at the end of the code. And had a white complex tachycardia at the time when we were coding him. ABG during the code showed a pO2 of 44 pCO2 of 98 pH of 7.04 patient was reevaluated today on 02/23/2021, patient remains in the ICU, intubated and mechanically ventilated. He is on assist control rate of 45 v olume is 4 8000% FiO2 PEEP remains at 17. I did increase the PEEP to 18 today, and I switched the patient to oral amiodarone and start IV amiodarone. His ABG today showed a pO2 of 69 pCO2 of 81 pH of 7.15. Could not increased the PEEP any higher, as his peak airway pressure was significantly high, in the high 50s with a higher PEEP. And plateau pressure was also extremely high. In the high 50s and 40s. Patient remains on bicarb drip, remains on amiodarone drip, but I switch amiodarone to oral. He is on norepinephrine at 0.1 mcg/kg/m, patient is on propofol at 20 mcg/kg/m, Nimbex, and fentanyl at 0.5 mcg/kg/h. Remains on tube feeding, Nepro 40/40. Patient maintained a sinus rhythm through the night. Chest x-ray remained the same showing bilateral patchy infiltrates. CBC is relatively unremarkable, WBC count is 8.1 hemoglobin 9.6. The diarrhea is 4.58. BUN is 90 creatinine is 5.44. Asymmetric metabolic profile is relatively unremarkable. Patient was reevaluated today on 02/24/2021, patient remains in the ICU, intubated and mechanically ventilated. He is on assist control rate of 40 tidal volume is 485-85% PEEP remains at 18. ABG showed a pO2 of 58 pCO2 of 81 pH of 7.18. Peak airway pressure is 38, static pressure is 24. Chest x-ray is basically the same, continues to show bilateral patchy infiltrates. Patient remains on multiple drips including IV fluid at KVO, bicarbonate 100 mL/h, Nimbex S3 propofol at 20 norepinephrine at 0.12, and fentanyl at 0.05. Patient remains on enteral feeding using Nepro 36/36. Today I cut down his FiO2 to 75%, up to the ventilator settings exactly the same otherwise. Patient is supposed to have hemodialysis today. Family has been approached regarding CODE STATUS again, insists on full code. Although the patient had 2 cardiac arrests already while in the ICU. WBC count is 5.2 hemoglobin is 8.4. Electrolytes are normal renal profile is abnormal with a BUN of 118 creatinine 6.79. Patient is going to be dialyzed today. Patient remains sedated and paralyzed. And based on his chest x-ray findings, ABG findings, and his overall status, he is nowhere to be considered for any weaning except possibly cutting down the FiO2 from 85% to 80% or maybe 75% Patient was reevaluated today on 02/25/2021, remains intubated and mechanically ventilated. Had an episode of bradycardia yesterday associated with hypotensio n, patient responded to atropine and epinephrine injection. Had to be placed back up on 100% FiO2. His vent settings at present are assist control rate of 40 tidal volume is 480 FiO2 is 90% and PEEP of 18. ABG earlier on 75% FiO2 showed a pO2 of 48 pCO2 of 78 pH of 7.21. Presently the patient is on 90% FiO2. He is undergoing hemodialysis today. Presently on propofol at 20 norepinephrine at 0.1 fentanyl at 0.5 Nimbex S3 bicarb drip at 100 mL an hour. Patient is on enteral feeding using Nepro he will be receiving a unit of blood today for low hemoglobin. And we have increase his Pepcid to twice a day. Had some coffee-ground emesis through the nasogastric tube today. WBC count is 7.8 hemoglobin is 7.7. Electrolytes are normal potassium is 5.2 BUN is 105 creatinine 6.03. Chest x-ray is basically about the same, continues to show bilateral patchy infiltrates consistent with COVID-19 pneumonia. Not much different from his x-ray in the last few days. Objective - Vital Signs Vital signs: Vital Signs Temp 98.5 F 02/25/21 08:00 Pulse 98 02/25/21 08:00 Resp 40 H 02/25/21 08:00 BP 129/51 02/25/21 08:00 Pulse Ox 92 L 02/25/21 08:00 Intake & Output 02/24/21 02/25/21 02/25/21 18:59 06:59 18:59 Intake Total 2643.968 2363.091 200.893 Output Total 520 0 0 Balance 2123.968 2363.091 200.893 Weight 126.8 kg 128.9 kg Intake: IV 1353 1599 123 Dextrose 5% in Water 1, 1100 1300 100 000 ml @ 100 mls/hr IV . [id number] MARIO with Sodium Bicarb (1 Meq/ml) 150 ml Rx#:[id number] Pressure bag 33 39 3 Sodium Chloride 0.9% 1, 220 260 20 000 ml @ 20 mls/hr IV . Q24H MARIO Rx#:[id number] Intake, IV Titration 682.968 308.091 41.893 Amount Cisatracurium 200 mg In 192.694 200 Sodium Chloride 0.9% 180 ml @ 1 MCG/KG/MIN 5.987 mls/hr IV .Q24H [facility]IO Rx#: [id number] Norepinephrine 32 mg In 90.274 38.161 41.893 Sodium Chloride 0.9% 218 ml @ 0.05 MCG/KG/MIN 2. 759 mls/hr IV .Q24H [facility] Rx#:[id number] cefTRIAXone 1 gm In 100 Sodium Chloride 0.9% 50 ml @ 100 mls/hr IVPB Q24HR [facility] Rx#:[id number] fentaNYL (PF). 1,000 mcg 100 69.93 In Sodium Chloride 0.9% 80 ml @ Per Protocol IV . Q0M [facility] Rx#:[id number] propofoL 1,000 mg In 200 Empty Bag 1 bag @ Titrate IV .Q0M [facility] Rx#: [id number] Tube Feeding 408 396 36 Other 200 60 Output: Urine 20 0 0 Hemodialysis 500 Other: Voiding Method Indwelling Catheter Indwelling Catheter # Voids 45 ABP, PAP, CO, CI - Last Documented Arterial Blood Pressure 106/42 - Exam Physical Exam: Revealed a 65-year-old male intubated mechanically ventilated sedated and paralyzed. Head: Atraumatic, normocephalic. Endotracheal tube and orogastric tubes are intact. HEENT:[Neck is supple.] [No neck masses.] [No thyromegaly.] [No JVD.] PERRLA, EOMI, nonicteric. Left subclavian central line is noted. Chest: [Crackles at the bases persist, symmetrical chest expansion noted.. Cardiac Exam: [Normal S1 and S2, no S3 gallop, no murmur.] Abdomen: Obese, [Soft, nontender, no megaly, no rebound, no guarding, normal bowel sounds.] Extremities: [No clubbing, 1+ bipedal edema, no cyanosis. Neurological Exam: Could not assess, patient is sedated and paralyzed. Skin: No rashes. Psychiatric: Could not assess. - Labs CBC & Chem 7: 02/25/21 05:41 02/25/21 05:41 Labs: Abnormal Lab Results - Last 24 Hours (Table) 02/24/21 02/24/21 02/24/21 Range/Units 11:54 17:35 23:21 RBC (4.30-5.90) m/uL Hgb (13.0-17.5) gm/dL Hct (39.0-53.0) % RDW (11.5-15.5) % Monocytes # (Manual) (0-1.0) k/uL Metamyelocytes # (Man) (0) k/uL Nucleated RBCs (0-0) /100 WBC ABG pH (7.35-7.45) ABG pCO2 (35-45) mmHg ABG pO2 (83-108) mmHg ABG HCO3 (21-25) mmol/L ABG Total CO2 (19-24) mmol/L ABG O2 Saturation (94-97) % Sodium (137-145) mmol/L Potassium (3.5-5.1) mmol/L Chloride (98-107) mmol/L Carbon Dioxide (22-30) mmol/L BUN (9-20) mg/dL Creatinine (0.66-1.25) mg/dL Glucose (74-99) mg/dL POC Glucose (mg/dL) 132 H 139 H 149 H (75-99) mg/dL Calcium (8.4-10.2) mg/dL 02/25/21 02/25/21 02/25/21 Range/Units 04:05 05:41 05:41 RBC 2.32 L (4.30-5.90) m/uL Hgb 7.7 L (13.0-17.5) gm/dL Hct 22.9 L (39.0-53.0) % RDW 16.9 H (11.5-15.5) % Monocytes # (Manual) 1.72 H (0-1.0) k/uL Metamyelocytes # (Man) 0.08 H (0) k/uL Nucleated RBCs 8 H (0-0) /100 WBC ABG pH 7.22 L (7.35-7.45) ABG pCO2 79 H* (35-45) mmHg ABG pO2 48 L* (83-108) mmHg ABG HCO3 32 H (21-25) mmol/L ABG Total CO2 35 H (19-24) mmol/L ABG O2 Saturation 79.9 L (94-97) % Sodium 136 L (137-145) mmol/L Potassium 5.2 H (3.5-5.1) mmol/L Chloride 94 L (98-107) mmol/L Carbon Dioxide 32 H (22-30) mmol/L BUN 105 H* (9-20) mg/dL Creatinine 6.03 H (0.66-1.25) mg/dL Glucose 137 H (74-99) mg/dL POC Glucose (mg/dL) (75-99) mg/dL Calcium 7.7 L (8.4-10.2) mg/dL 02/25/21 Range/Units 07:22 RBC (4.30-5.90) m/uL Hgb (13.0-17.5) gm/dL Hct (39.0-53.0) % RDW (11.5-15.5) % Monocytes # (Manual) (0-1.0) k/uL Metamyelocytes # (Man) (0) k/uL Nucleated RBCs (0-0) /100 WBC ABG pH (7.35-7.45) ABG pCO2 (35-45) mmHg ABG pO2 (83-108) mmHg ABG HCO3 (21-25) mmol/L ABG Total CO2 (19-24) mmol/L ABG O2 Saturation (94-97) % Sodium (137-145) mmol/L Potassium (3.5-5.1) mmol/L Chloride (98-107) mmol/L Carbon Dioxide (22-30) mmol/L BUN (9-20) mg/dL Creatinine (0.66-1.25) mg/dL Glucose (74-99) mg/dL POC Glucose (mg/dL) 147 H (75-99) mg/dL Calcium (8.4-10.2) mg/dL Assessment and Plan Assessment: Impression: Acute hypoxic failure secondary to COVID-19 pneumonia and ARDS. Acute kidney injury and renal failure requiring hemodialysis. Elevated inflammatory markers secondary to above Troponin leak. Former smoker. Elevated liver enzymes secondary to COVID-19 pneumonia and infection Severe cardiomyopathy and LV dysfunction with ejection fraction of 20%. Cardiac arrest requiring CPR 2. Supraventricular tachycardia post cardiac arrest. Presently on amiodarone via nasogastric tube. 200 mg twice a day. E coli urinary tract infection, remains on Rocephin. Coffee ground emesis and upper GI blood loss, most likely secondary to erosive gastritis, patient remains on Pepcid 20 mg twice a day. Recommendation: Transfuse patient with 1 unit of packed RBCs today, this should be given after hemodialysis today. Continue ventilatory support. No major changes noted in the vent settings, we will continue to titrate FiO2 down as tolerated maintaining O2 saturation above 89%. Continue Decadron at 6 mg IV push twice a day. Continue Lovenox at 30 mg subcu daily. Continue sedation and paralysis. Continue antibiotics/Rocephin. Continue nutritional support. Continue the vitamin cocktail. Patient received convalescent plasma and toci Continue hemodialysis. Continue amiodarone 200 mg twice a day Continue GI and DVT prophylaxis. Remains on Pepcid twice a day. Patient remains critically ill, prognosis is very poor, Critical care time is over 30 minutes. Time with Patient: Greater than 30
[2021-02-25] MEDS: ENOXAPARIN 30 MG/0.3 ML SYRINGE SQ SCH (10:14)
[2021-02-25 11:53] LABS: Glucose,Whole Blood 127 mg/dL (75-99)
--- NOTE | 2021-02-25 15:41 | P.PN ---
Subjective Progress Note Date: 02/25/21 Principal diagnosis: This 65-year-old male with COVID pneumonia, severe ATN requiring dialysis. He was dialyzed this morning. He remains on small doses of levo fed was able to stay stable on the current dialysis with only 1 L taken off. He has had a bradycardic event this morning prior to his dialysis and had to be reversed with atropine yesterday He has severe respiratory acidosis. On 95% FiO2. His also on Diprivan, fentanyl sodium bicarb 5% dextrose with 150 mEq in a liter at 50 an hour Objective - Vital Signs Vital signs: Vital Signs Temp 98.6 F 02/25/21 15:20 Pulse 86 02/25/21 15:20 Resp 40 H 02/25/21 15:20 BP 139/64 02/25/21 15:20 Pulse Ox 87 L 02/25/21 15:20 Intake & Output 02/24/21 02/25/21 02/25/21 18:59 06:59 18:59 Intake Total 2643.968 2363.091 1792.572 Output Total 520 0 1000 Balance 2123.968 2363.091 792.572 Weight 126.8 kg 128.9 kg Intake: IV 1353 1599 904 Dextrose 5% in Water 1, 1100 1300 800 000 ml @ 100 mls/hr IV . [id number] [facility] with Sodium Bicarb (1 Meq/ml) 150 ml Rx#:[id number] Pressure bag 33 39 24 Sodium Chloride 0.9% 1, 220 260 80 000 ml @ 20 mls/hr IV . Q24H [facility] Rx#:[id number] Intake, IV Titration 682.968 308.091 260.572 Amount Cisatracurium 200 mg In 192.694 200 177.225 Sodium Chloride 0.9% 180 ml @ 1 MCG/KG/MIN 5.987 mls/hr IV .Q24H [facility] Rx#: [id number] Norepinephrine 32 mg In 90.274 38.161 83.347 Sodium Chloride 0.9% 218 ml @ 0.05 MCG/KG/MIN 2. 759 mls/hr IV .Q24H [facility] Rx#:[id number] cefTRIAXone 1 gm In 100 Sodium Chloride 0.9% 50 ml @ 100 mls/hr IVPB Q24HR [facility] Rx#:[id number] fentaNYL (PF). 1,000 mcg 100 69.93 In Sodium Chloride 0.9% 80 ml @ Per Protocol IV . Q0M [facility] Rx#:[id number] propofoL 1,000 mg In 200 Empty Bag 1 bag @ Titrate IV .Q0M [facility] Rx#: [id number] Tube Feeding 408 396 288 Blood Product 310 Rc As-1 Unit 310 [id number] Other 200 60 30 Output: Urine 20 0 0 Hemodialysis 500 1000 Other: Voiding Method Indwelling Catheter Indwelling Catheter Indwelling Catheter # Voids 45 ABP, PAP, CO, CI - Last Documented Arterial Blood Pressure 112/43 Patient was not seen was examined from the door with the help of a nurse. He layton s significant edema all over. - Labs CBC & Chem 7: 02/25/21 05:41 02/25/21 05:41 Labs: Abnormal Lab Results - Last 24 Hours (Table) 02/24/21 02/24/21 02/25/21 Range/Units 17:35 23:21 04:05 RBC (4.30-5.90) m/uL Hgb (13.0-17.5) gm/dL Hct (39.0-53.0) % RDW (11.5-15.5) % Monocytes # (Manual) (0-1.0) k/uL Metamyelocytes # (Man) (0) k/uL Nucleated RBCs (0-0) /100 WBC ABG pH 7.22 L (7.35-7.45) ABG pCO2 79 H* (35-45) mmHg ABG pO2 48 L* (83-108) mmHg ABG HCO3 32 H (21-25) mmol/L ABG Total CO2 35 H (19-24) mmol/L ABG O2 Saturation 79.9 L (94-97) % Sodium (137-145) mmol/L Potassium (3.5-5.1) mmol/L Chloride (98-107) mmol/L Carbon Dioxide (22-30) mmol/L BUN (9-20) mg/dL Creatinine (0.66-1.25) mg/dL Glucose (74-99) mg/dL POC Glucose (mg/dL) 139 H 149 H (75-99) mg/dL Calcium (8.4-10.2) mg/dL Crossmatch 0402/25/21 02/25/21 Range/Units 05:41 05:41 07:22 RBC 2.32 L (4.30-5.90) m/uL Hgb 7.7 L (13.0-17.5) gm/dL Hct 22.9 L (39.0-53.0) % RDW 16.9 H (11.5-15.5) % Monocytes # (Manual) 1.72 H (0-1.0) k/uL Metamyelocytes # (Man) 0.08 H (0) k/uL Nucleated RBCs 8 H (0-0) /100 WBC ABG pH (7.35-7.45) ABG pCO2 (35-45) mmHg ABG pO2 (83-108) mmHg ABG HCO3 (21-25) mmol/L ABG Total CO2 (19-24) mmol/L ABG O2 Saturation (94-97) % Sodium 136 L (137-145) mmol/L Potassium 5.2 H (3.5-5.1) mmol/L Chloride 94 L (98-107) mmol/L Carbon Dioxide 32 H (22-30) mmol/L BUN 105 H* (9-20) mg/dL Creatinine 6.03 H (0.66-1.25) mg/dL Glucose 137 H (74-99) mg/dL POC Glucose (mg/dL) 147 H (75-99) mg/dL Calcium 7.7 L (8.4-10.2) mg/dL Crossmatch 02/25/21 02/25/21 Range/Units 10:06 11:46 RBC (4.30-5.90) m/uL Hgb (13.0-17.5) gm/dL Hct (39.0-53.0) % RDW (11.5-15.5) % Monocytes # (Manual) (0-1.0) k/uL Metamyelocytes # (Man) (0) k/uL Nucleated RBCs (0-0) /100 WBC ABG pH (7.35-7.45) ABG pCO2 (35-45) mmHg ABG pO2 (83-108) mmHg ABG HCO3 (21-25) mmol/L ABG Total CO2 (19-24) mmol/L ABG O2 Saturation (94-97) % Sodium (137-145) mmol/L Potassium (3.5-5.1) mmol/L Chloride (98-107) mmol/L Carbon Dioxide (22-30) mmol/L BUN (9-20) mg/dL Creatinine (0.66-1.25) mg/dL Glucose (74-99) mg/dL POC Glucose (mg/dL) 127 H (75-99) mg/dL Calcium (8.4-10.2) mg/dL Crossmatch See Detail Assessment and Plan Assessment: Impression 1. Acute kidney injury with ATN in anuric on dialysis last dialysis was this morning. 2. When dependent restrictive failure on 95% FiO2 with COVID pneumonia. 3. Severe respiratory acidosis from ventilatory failure. PH is 7.22 pCO2 79 and pO2 is 48 on 75% FiO2 which has been increased to 95% now. 4. Mild degree of metabolic compensate 3 alkalosis and in a patient without any urine output this reflects the dialysate and IV bicarb. Recommendation 1. Reduce the sodium bicarb drip to 25 mL an hour and see how he responds. We will repeat his bicarb tonight and readjust his bicarb drip as needed
[2021-02-25 17:14] LABS: Glucose,Whole Blood 118 mg/dL (75-99)
[2021-02-25 17:14] LABS: Calcium 7.7 mg/dL (8.4-10.2); Potassium 4.8 mmol/L (3.5-5.1)
[2021-02-25 17:19] LABS: Glucose,Whole Blood 241 mg/dL (75-99)
[2021-02-25 21:00] LABS: Glucose,Whole Blood 106 mg/dL (75-99)
[2021-02-25] MEDS: DEXTROSE 5% IN WATER 1,000 ML with SODIUM BICARB (1 MEQ/ML) 150 ML IV SCH ×2 (21:11→21:15)
[2021-02-26 00:37] LABS: Glucose,Whole Blood 131 mg/dL (75-99)
[2021-02-26] MEDS: INSULIN ASPART (NovoLOG) 100 UNIT/ML VIAL SQ SCH ×4 (00:51→17:37)
[2021-02-26] MEDS: SODIUM CHLORIDE 0.9% 1,000 ML IV SCH (04:37)
[2021-02-26 04:56] LABS: ABG Base Excess 4.1 mmol/L; ABG HCO3 32 mmol/L (21-25); ABG Oxygen Saturation 88.4 % (94-97); ABG PH 7.22 (7.35-7.45); ABG TCO2 34 mmol/L (19-24); Allen Test Performed? Yes
[2021-02-26 04:59] LABS: ABG PCO2 79 mmHg (35-45); ABG PO2 59 mmHg (83-108)
[2021-02-26 05:24] LABS: Glucose,Whole Blood 128 mg/dL (75-99)
[2021-02-26 05:35] LABS: Anisocytosis Slight; HCT 22.9 % (39.0-53.0); Hypochromasia Slight; MCH 32.9 pg (25.0-35.0); MCHC 34.7 g/dL (31.0-37.0); MCV 94.6 fL (80.0-100.0); Macrocytosis Slight; Mean Platelet Volume 9.3; Platelet Count 174 k/uL (150-450); Poikilocytosis Moderate; RBC 2.42 m/uL (4.30-5.90); RDW 18.3 % (11.5-15.5)
[2021-02-26] MEDS: MIDODRINE 5 MG TAB PO SCH ×4 (05:40→17:53)
[2021-02-26 05:46] LABS: Calcium 7.8 mg/dL (8.4-10.2)
[2021-02-26 06:46] LABS: Band Neutrophils % 5 %; Eosinophils # (M) 0.14 k/uL (0-0.7); Lymphocytes # (M) 2.63 k/uL (1.0-4.8); Metamyelocytes # (M) 0.14 k/uL (0); Metamyelocytes % 2 %; Monocytes # (M) 1.42 k/uL (0-1.0); Myelocytes # (M) 0.07 k/uL (0); Myelocytes % 1 %; Neutrophils % (M) 35 %; Nucleated Red Blood Cells 8 /100 WBC (0-0); Total Cells Counted 200; WBC 7.1 k/uL (3.8-10.6)
[2021-02-26 06:48] LABS: Basophilic Stippling Present
--- NOTE | 2021-02-26 07:19 | XR ---
EXAMINATION TYPE: XR chest 1V portable DATE OF EXAM: 02/26/2021 COMPARISON: Chest x-ray 02/25/2021 HISTORY: Intubated TECHNIQUE: Single frontal view of the chest is obtained. FINDINGS: Endotracheal tube, orogastric tube, left-sided central venous catheter are all again prese nt and overlying appropriate positions. Pleural parenchymal changes show no significant change. Cardi ac mediastinal silhouette is stable. IMPRESSION: Stable exam. Correlate for pneumonia.
[2021-02-26 07:43] LABS: Glucose,Whole Blood 123 mg/dL (75-99)
[2021-02-26] MEDS: ZINC SULFATE 220 MG CAP PO SCH (08:34)
[2021-02-26] MEDS: ASCORBIC ACID 500 MG TAB PO SCH (08:34)
[2021-02-26] MEDS: CHOLECALCIFEROL 25 MCG (1000 IU) TABLET PO SCH (08:35)
[2021-02-26] MEDS: AMIODARONE 200 MG TAB PO SCH ×2 (08:36→20:35)
[2021-02-26] MEDS: DEXAMETHASONE SOD PHOSPHATE 10 MG/ML 1 ML VIAL IV SCH ×2 (08:46→20:35)
[2021-02-26] MEDS: METOPROLOL TARTRATE 25 MG TAB PO SCH ×2 (08:46→20:35)
[2021-02-26] MEDS: FAMOTIDINE 20 MG/2 ML VIAL IV SCH ×2 (08:47→20:35)
[2021-02-26] MEDS: ENOXAPARIN 30 MG/0.3 ML SYRINGE SQ SCH (08:48)
[2021-02-26] MEDS: CHLORHEXIDINE GLUCONATE 15 ML CUP MUCOUS MEM SCH ×2 (08:48→20:35)
--- NOTE | 2021-02-26 08:58 | P.PN ---
Subjective Progress Note Date: 02/26/21 Principal diagnosis: This 65-year-old male with COVID pneumonia, severe ATN requiring dialysis. He was dialyzed 4 days last week including yesterday. He tolerated the dialysis on ly 1 L was taken off and he had one unit of blood transfused. He has been off of levo since yesterday. He is on 3 sedatives, on 90% FiO2 on 18 of PEEP. Anuric. Being fed through NG tube. He has had a bradycardic event this yesterday morning prior to his dialysis and had to be reversed with atropine yesterday, has had cardiac arrest His ABGs shows pH of 7.2 to pCO2 is 79 pO2 is 59 on 90% FiO2. Bicarb is 34 He's been on vent since 02/12/2021. On the monitor he is still in normal sinus rhythm. Objective - Vital Signs Vital signs: Vital Signs Temp 99.0 F 02/26/21 08:00 Pulse 86 02/26/21 08:00 Resp 40 H 02/26/21 08:00 BP 128/58 02/26/21 08:00 Pulse Ox 91 L 02/26/21 08:00 Intake & Output 02/25/21 02/26/21 02/26/21 18:59 06:59 18:59 Intake Total 2106.137 1376 258 Output Total 1000 5 10 Balance 0890.137 1490 248 Weight 132.6 kg Intake: IV 1073 876 146 Dextrose 5% in Water 1, 900 600 100 000 ml @ 50 mls/hr IV . Q23H [facility] with Sodium Bicarb (1 Meq/ml) 150 ml Rx#:[id number] Pressure bag 33 36 6 Sodium Chloride 0.9% 1, 140 240 40 000 ml @ 20 mls/hr IV . Q24H [facility] Rx#:[id number] Intake, IV Titration 267.137 100 Amount Cisatracurium 200 mg In 177.225 Sodium Chloride 0.9% 180 ml @ 1 MCG/KG/MIN 5.987 mls/hr IV .Q24H [facility] Rx#: [id number] Norepinephrine 32 mg In 89.912 0 Sodium Chloride 0.9% 218 ml @ 0.05 MCG/KG/MIN 2. 759 mls/hr IV .Q24H [facility] Rx#:[id number] fentaNYL (PF). 1,000 mcg 100 In Sodium Chloride 0.9% 80 ml @ Per Protocol IV . Q0M [facility] Rx#:[id number] Tube Feeding 396 360 72 Blood Product 310 Rc As-1 Unit 310 [id number] Other 60 40 40 Output: Urine 0 5 10 Hemodialysis 1000 Other: Voiding Method Indwelling Catheter Indwelling Catheter ABP, PAP, CO, CI - Last Documented Arterial Blood Pressure 103/38 Patient was seen from the doorway and discussed with the nurse because of the Covid 19 He seems to have gross anasarca. - Labs CBC & Chem 7: 02/26/21 05:11 02/26/21 05:11 Labs: Abnormal Lab Results - Last 24 Hours (Table) 02/25/21 02/25/21 02/25/21 Range/Units 10:06 11:46 16:52 RBC (4.30-5.90) m/uL Hgb (13.0-17.5) gm/dL Hct (39.0-53.0) % RDW (11.5-15.5) % Monocytes # (Manual) (0-1.0) k/uL Metamyelocytes # (Man) (0) k/uL Myelocytes # (Manual) (0) k/uL Nucleated RBCs (0-0) /100 WBC D-Dimer (<0.60) mg/L FEU ABG pH (7.35-7.45) ABG pCO2 (35-45) mmHg ABG pO2 (83-108) mmHg ABG HCO3 (21-25) mmol/L ABG Total CO2 (19-24) mmol/L ABG O2 Saturation (94-97) % Sodium 134 L (137-145) mmol/L Chloride 93 L (98-107) mmol/L Carbon Dioxide 35 H (22-30) mmol/L BUN 83 H (9-20) mg/dL Creatinine 4.72 H (0.66-1.25) mg/dL Glucose 116 H (74-99) mg/dL POC Glucose (mg/dL) 127 H (75-99) mg/dL Calcium 7.7 L (8.4-10.2) mg/dL Crossmatch See Detail 02/25/21 02/25/21 02/25/21 Range/Units 17:13 17:18 20:58 RBC (4.30-5.90) m/uL Hgb (13.0-17.5) gm/dL Hct (39.0-53.0) % RDW (11.5-15.5) % Monocytes # (Manual) (0-1.0) k/uL Metamyelocytes # (Man) (0) k/uL Myelocytes # (Manual) (0) k/uL Nucleated RBCs (0-0) /100 WBC D-Dimer (<0.60) mg/L FEU ABG pH (7.35-7.45) ABG pCO2 (35-45) mmHg ABG pO2 (83-108) mmHg ABG HCO3 (21-25) mmol/L ABG Total CO2 (19-24) mmol/L ABG O2 Saturation (94-97) % Sodium (137-145) mmol/L Chloride (98-107) mmol/L Carbon Dioxide (22-30) mmol/L BUN (9-20) mg/dL Creatinine (0.66-1.25) mg/dL Glucose (74-99) mg/dL POC Glucose (mg/dL) 118 H 241 H 106 H (75-99) mg/dL Calcium (8.4-10.2) mg/dL Crossmatch 02/26/21 02/26/21 02/26/21 Range/Units 00:33 04:45 05:11 RBC 2.42 L (4.30-5.90) m/uL Hgb 8.0 L (13.0-17.5) gm/dL Hct 22.9 L (39.0-53.0) % RDW 18.3 H (11.5-15.5) % Monocytes # (Manual) 1.42 H (0-1.0) k/uL Metamyelocytes # (Man) 0.14 H (0) k/uL Myelocytes # (Manual) 0.07 H (0) k/uL Nucleated RBCs 8 H (0-0) /100 WBC D-Dimer (<0.60) mg/L FEU ABG pH 7.22 L (7.35-7.45) ABG pCO2 79 H* (35-45) mmHg ABG pO2 59 L* (83-108) mmHg ABG HCO3 32 H (21-25) mmol/L ABG Total CO2 34 H (19-24) mmol/L ABG O2 Saturation 88.4 L (94-97) % Sodium (137-145) mmol/L Chloride (98-107) mmol/L Carbon Dioxide (22-30) mmol/L BUN (9-20) mg/dL Creatinine (0.66-1.25) mg/dL Glucose (74-99) mg/dL POC Glucose (mg/dL) 131 H (75-99) mg/dL Calcium (8.4-10.2) mg/dL Crossmatch 02/26/21 02/26/21 02/26/21 Range/Units 05:11 05:11 05:19 RBC (4.30-5.90) m/uL Hgb (13.0-17.5) gm/dL Hct (39.0-53.0) % RDW (11.5-15.5) % Monocytes # (Manual) (0-1.0) k/uL Metamyelocytes # (Man) (0) k/uL Myelocytes # (Manual) (0) k/uL Nucleated RBCs (0-0) /100 WBC D-Dimer 3.60 H (<0.60) mg/L FEU ABG pH (7.35-7.45) ABG pCO2 (35-45) mmHg ABG pO2 (83-108) mmHg ABG HCO3 (21-25) mmol/L ABG Total CO2 (19-24) mmol/L ABG O2 Saturation (94-97) % Sodium 135 L (137-145) mmol/L Chloride 93 L (98-107) mmol/L Carbon Dioxide 34 H (22-30) mmol/L BUN 97 H (9-20) mg/dL Creatinine 5.36 H (0.66-1.25) mg/dL Glucose 116 H (74-99) mg/dL POC Glucose (mg/dL) 128 H (75-99) mg/dL Calcium 7.8 L (8.4-10.2) mg/dL Crossmatch 02/26/21 Range/Units 07:40 RBC (4.30-5.90) m/uL Hgb (13.0-17.5) gm/dL Hct (39.0-53.0) % RDW (11.5-15.5) % Monocytes # (Manual) (0-1.0) k/uL Metamyelocytes # (Man) (0) k/uL Myelocytes # (Manual) (0) k/uL Nucleated RBCs (0-0) /100 WBC D-Dimer (<0.60) mg/L FEU ABG pH (7.35-7.45) ABG pCO2 (35-45) mmHg ABG pO2 (83-108) mmHg ABG HCO3 (21-25) mmol/L ABG Total CO2 (19-24) mmol/L ABG O2 Saturation (94-97) % Sodium (137-145) mmol/L Chloride (98-107) mmol/L Carbon Dioxide (22-30) mmol/L BUN (9-20) mg/dL Creatinine (0.66-1.25) mg/dL Glucose (74-99) mg/dL POC Glucose (mg/dL) 123 H (75-99) mg/dL Calcium (8.4-10.2) mg/dL Crossmatch Assessment and Plan Assessment: Impression 1. Acute kidney injury with ATN in anuric on dialysis last dialysis was yesterday morning for 02/21/2021 and was the fourth dialysis session for the week, tolerated 1 L of. 2. Respiratory acidosis secondary to ventilatory failure on 18 of PEEP and 90% FiO2 with metabolic alkalosis 3. Anemia with hemoglobin of 8 posttransfusion yesterday during dialysis Recommendation 1. Will attempt dialysis today, try to take off 2 L over 6 hours of low ef ficiency dialysis. Will use 3 calcium bath and 3 potassium bath with sodium modeling 145 steps and cold dialysate to maintain his hemodynamic stability 2. poor Prognosis 3. Maintain sodium bicarb drip to 25 mL an hour and see how he responds.
[2021-02-26] MEDS: CISATRACURIUM 200 MG in SODIUM CHLORIDE 0.9% 180 ML IV SCH ×2 (10:24→17:36)
[2021-02-26] MEDS: ASPIRIN 81 MG PO SCH (10:30)
--- NOTE | 2021-02-26 10:32 | P.PN ---
Subjective Progress Note Date: 02/23/21 Principal diagnosis: Acute bilateral Covid pneumonia Acute hypoxic respiratory failure secondary to above. on mechanical ventilator This is a pleasant 65 years old male with no significant past medical history who presents because of one-week history of dyspnea associated with high fever at 101.3 at home. Associated with coughing. He feels generally weak but no significant chest pain. Patient dyspnea was getting more worse and he was not feeling well so family brought him to the hospital. His symptoms started about 2 weeks Patient is poor historian and is oxygen saturation was troponin while he was on high flow nasal cannula and he has to be placed on BiPAP and sent to the ICU from emergency room Patient is ex-smoker, he quit a few months ago. Used to smoke 2 packs per day. Patient is tachypneic with a breathing rate of 30, he is saturating any to on 60 L/m of oxygen via high flow cannula. A febrile. CBC, and BMP are unremarkable. Liver enzymes slightly elevated with AST 100 and ALT 86 and normal bilirubin of 0.7. D-dimer is elevated at 5.7. Elevated troponin 0.03, 0.06, 0.06 Chronic varus detected CTA of the chest: No evidence of PE. Extensive bilateral pneumonia, emphysema EKG showing sinus tachycardia at 107 with the bundle branch block and QTC 523 Chest x-ray: Bilateral infiltrates Ultrasound of the lower extremities is negative for DVT on both sides In ED he was started on Lovenox, normal saline at 75 mL/h, one-time dose of tocilizumab per pulmonary team , vitamin C, zinc and vitamin D. Patient has been evaluated by pulmonary service, he was started on BiPAP and admitted to the ICU 02/11/2021 Patient remains in the ICU, monitored closely for his hypoxia, he needs BiPAP most of the time of continuously. Has increased inflammatory markers with ferritin 1519, LDH 2339 and selective 1438. D-dimer is elevated at 5.7 and he is placed on therapeutic dose of Lovenox. Chest x-ray showing bilateral infiltrate Remains on dexamethasone and vitamin cocktail for Covid, he also received 1 dose of tocilizumab and convalescent plasma Also he is on metoprolol and Lovenox 50 mg twice a day 02/12/2021 Patient seen and examined in the ICU for Covid pneumonia, this morning his respiratory status deteriorated and he had to be intubated and placed on mechanical ventilation, also blood pressure was troponin even with boluses of normal saline and he has to be placed on Levophed at 0.05. Vent setting showing PEEP 10, respiratory rate 30, dental: 450 and FiO2 is 100%. Dictated hydrogenase almost doubled to 4124 and C-reactive protein is high at 20. D-dimer more than 34. Liver enzymes slightly elevated. She remains on metoprolol 25 mg, Lovenox 50 mg dexamethasone, vitamin C, D and zinc. Also he is started on small dose of Levophed. And metoprolol 02/14/2021 Patient is currently in MICU and remains intubated. Patient was intubated on 02/12/2021. Currently on mechanical ventilator and is on sedation. Chest x-ray showed COPD with borderline heart size. Diffuse interstitial opacities and more confluent bibasilar airspace disease, right greater than left, (without significant change. Laboratory data showed D-dimer 24.99, potassium 5.2, bicarb 34 BUN 24 creatinine 0.79 calcium 8.1 ferritin 1008.5 AST 91 ALT 208 LDH 2000 CPK 194, CRP 14.0. Patient is being continued on dexamethasone 6 mg IV daily, Lovenox 50 mg subcu twice daily and multivitamins. Pulmonary is on board. Patient is tachypneic. Afebrile. 02/15/2021 Patient is currently in MICU remains intubated and also on sedation and paralyzed. Assist control 500, respiratory 32 and PEEP of 17 and FiO2 30%. Chest x-ray showed mild improvement of diffuse increased lung markings. Patient is tachypneic. Blood pressure is stable. Patient is afebrile. Laboratory data showed diabetes 11.7 hemoglobin 16.1 MCV 101.1 and platelets 178 ABG showed pH of 7.3 PCO2 73 and PO2 53 Sodium 137 potassium 5.6 bicarb is 34 BUN 34 and creatinine 0.9 AST is 57 ALT from 58 LDH 1693 CRP 10.3 Patient is on enteral feeding. 02/16/2021 Patient is currently MICU on mechanical L also on sedation and paralyzed. Currently on assist control 100 PEEP of 17 and FiO2 50%. ABG showed pH of 7.31, PCO2 68 and PO2 60 Chest x-ray showed bibasilar infiltrates. Findings are improving. Laboratory showed WBC 12.7 hemoglobin 15.3 and platelets 167 D-dimer is 9.64 sodium 137 potassium 5.1 bicarb is 34 BUN 59 creatinine 1.52 blood sugar is 150 AST 61 ALT 144 LDH 1363 total protein 5.9 albumin 3.1 and procalcitonin 1.25 Patient is being continued on dexamethasone, Lovenox twice daily, multivitamins. Critical care team is on board. 02/17/2021 Patient currently in the MICU and remains on mechanical ventilator. Sedated and paralyzed. Assist-control 450 respiratory rate 32 PEEP of 17 and FiO2 50%. Chest x-ray showed COPD and continued bibasilar airspace disease and background increase in interstitial opacity. Laboratory data showed WBC 13.6 hemoglobin 14.1 and platelets 162 D-dimer is 5.41 pH of 7.27, PCO2 82 and PO2 56 Sodium 138 potassium 5.5 BUN 59 and creatinine 1.21 AST 65 ALT 143 LDH 1230 CRP 6.5 and pro calcitonin level of 0.73 Patient was started on cefepime and vancomycin. 02/18/2021 Patient is currently in the MICU. Currently sedated and paralyzed. Patient became hypoxic and decompensated with sedation holiday and was put back on sedation and currently paralyzed. Assist-control 450 PEEP of 17 and FiO2 50%. Chest x-ray showed stable findings. T-max 100.4 Laboratory data showed LDH 1169, CRP 1.1 and the creatinine went up to 1.3 to. WBC 11.8. Otherwise patient is being continued on Decadron 6 mg IV every 12 and Lovenox 50 mg every 12. Patient has been afebrile. Urine culture showed gram-negative bacilli and is currently getting cefepime. Blood cultures grew gram-positive cocci and is on vancomycin until final is nothing blood cultures. Pulmonary is on board. 02/19/2021 Patient is currently on mechanical ventilator and paralyzed. Assist-control 450, PEEP of 17 and FiO2 60%. Chest x-ray showed diffuse bilateral pulmonary infiltrates mostly in the lung bases. Laboratory data showed WBC 12.4 hemoglobin 13.1 and platelets 86 D-dimer 4.03 Potassium 5.8, BUN 80 and creatinine 2.5, pro calcitonin 0.88, LDH 898, CRP 1.6 and alk phos 108 at length patient is being continued on DEXA was on, Lovenox twice a day and antibiotics in the form of cefepime for E. coli urinary tract infection. Follow-up repeat blood cultures. Vancomycin has been discontinued.. Patient was seen by nephrology and added Midodrin 3 times a day. Critical care team and is on board. 02/20/2021 Patient is sedated and intubated and paralyzed. Remains in ICU and on [facility] anical ventilator. Assist-control 450, PEEP of 17 and FiO2 60%. On IV hydration with normal saline 70 mL per hour. Patient is tolerating enteral feeding. Afebrile. Chest x-ray showed COPD and borderline heart size. Interstitial changes and minimal lung airspace disease no significant change. Laboratory data showed WBC 9.6, hemoglobin 12.9 platelets 168 Sodium 139 potassium 6.1, BUN 99 and creatinine 4.15, ferritin 479, AST 31 ALT 94 alk phos 65 LDH 1032 and CRP 2.0 Patient be continued on cefepime. Nephrology is on board. IV hydration with normal saline. Continued on dexamethasone and Lovenox. Prognosis guarded in this time. 02/21/2021 Patient is currently in MICU intubated and sedated. Assist-control 480 and FiO2 60% and PEEP of 17. Peak pressures are still high around 37. Chest x-ray showed COPD and stable bilateral airspace disease especially in the periphery and lower lungs. Patient being continued on dexamethasone IV twice daily and Lovenox. Nephrology is on board due to acute kidney injury and ATN. Patient was started on hemodialysis last night. And again today. Laboratory data showed potassium 6.1, BUN 98 and creatinine 4.9. WBC 9.1 and hemoglobin 12.3 and platelets 165 urine culture showed E. coli and blood cultures told coagulase-negative staph aureus. Critical care team is following closely. 02/22/2021 Patient remained mechanical ventilator and on sedation. Assist-control 480 FiO2 60% and PEEP of 17. ABG showed pH of 7.15, PCO2 75-PO2 67 chest x-ray showed stable portable chest. Laboratory data showed potassium 6.0, BUN 91 and creatinine 5.41 patient was resting hemodialysis today. Patient went into cardiac arrest and CODE BLUE was initiated with return of spontaneous circulation.Was started on amiodarone drip. Laboratory showed sodium 138 potassium 6.0 BUN 91 and creatinine 5.41. Critical care team and nephrology is on board. Prognosis guarded at this time. 02/23/2021 Patient is currently [id number]. Remains intubated. Assist-control 450 with FiO2 80% and PEEP of 17. ABG showed pCO2 81 and pH of 7.15 and pO2 69. Patient remains on bicarb and amiodarone drip. Amiodarone will be changed to by mouth today. Otherwise patient is sedated and paralyzed. Next and chest x-ray showed right lateral patchy infiltrates. Laboratory data showed diabetes 8.1 hemoglobin 9.6 and BUN 19 creatinine 5.44. Pulmonary, nephrology is following. Current medications reviewed. Objective - Vital Signs Vital signs: Vital Signs Temp 99.0 F 02/23/21 20:00 Pulse 79 02/23/21 21:00 Resp 40 H 02/23/21 21:00 BP 131/53 02/23/21 21:00 Pulse Ox 92 L 02/23/21 21:00 Intake & Output 02/23/21 02/23/21 02/24/21 06:59 18:59 06:59 Intake Total 2735.190 2219.218 637.414 Output Total 5 10 0 Balance 2730.190 2209.218 637.414 Weight 117.3 kg Intake: IV 1476 1386 369 Dextrose 5% in Water 1, 1200 1110 300 000 ml @ 100 mls/hr IV . [id number] [facility] with Sodium Bicarb (1 Meq/ml) 150 ml Rx#:[id number] Pressure bag 36 36 9 Sodium Chloride 0.9% 1, 240 240 60 000 ml @ 20 mls/hr IV . Q24H [facility] Rx#:[id number] Intake, IV Titration 779.190 303.218 148.414 Amount Amiodarone 450 mg In 250 Dextrose 5% in Water 250 ml @ 0.5 MG/MIN 16.667 mls/hr IV .Q15H [facility] Rx#: [id number] Cisatracurium 200 mg In 200 Sodium Chloride 0.9% 180 ml @ 1 MCG/KG/MIN 5.987 mls/hr IV .Q24H [facility] Rx#: [id number] Norepinephrine 32 mg In 236.207 3.218 Sodium Chloride 0.9% 218 ml @ 0.05 MCG/KG/MIN 2. 759 mls/hr IV .Q24H [facility] Rx#:[id number] fentaNYL (PF). 1,000 mcg 100 79.442 In Sodium Chloride 0.9% 80 ml @ Per Protocol IV . Q0M [facility] Rx#:[id number] propofoL 1,000 mg In 192.983 100 68.972 Empty Bag 1 bag @ Titrate IV .Q0M [facility] Rx#: [id number] Tube Feeding 480 440 120 Other 90 Output: Urine 5 10 0 Other: Voiding Method Indwelling Catheter Indwelling Catheter Indwelling Catheter ABP, PAP, CO, CI - Last Documented Arterial Blood Pressure 131/54 - Exam - Exam -GENERAL: The patient is intubated and sedated . HEENT: Pupils are round and equally reacting to light. No scleral icterus. No conjunctival pallor. Normocephalic, atraumatic. No thyromegaly. CARDIOVASCULAR: S1 and S2 present. No murmurs, rubs, or gallops. PULMONARY: Chest is clear to auscultation, no wheezing or crackles. ABDOMEN: Soft, nontender, nondistended, normoactive bowel sounds. No palpable organomegaly. MUSCULOSKELETAL: No joint swelling or deformity. EXTREMITIES: No cyanosis, clubbing, or pedal edema. NEUROLOGICAL: Gross neurological examination did not reveal any focal deficits. SKIN: No rashes. no petechiae. - Labs CBC & Chem 7: 02/26/21 05:11 02/26/21 05:11 Labs: Abnormal Lab Results - Last 24 Hours (Table) 02/23/21 02/23/21 02/23/21 Range/Units 05:00 05:14 06:18 RBC 3.06 L (4.30-5.90) m/uL Hgb 9.6 L D (13.0-17.5) gm/dL Hct 31.2 L (39.0-53.0) % MCV 101.9 H (80.0-100.0) fL MCHC 30.6 L (31.0-37.0) g/dL RDW 17.1 H (11.5-15.5) % Lymphocytes # 0.9 L (1.0-4.8) k/uL D-Dimer (<0.60) mg/L FEU ABG pH 7.15 L* (7.35-7.45) ABG pCO2 81 H* (35-45) mmHg ABG pO2 69 L (83-108) mmHg ABG HCO3 28 H (21-25) mmol/L ABG Total CO2 31 H (19-24) mmol/L ABG O2 Saturation 92.4 L (94-97) % BUN 90 H (9-20) mg/dL Creatinine 5.44 H (0.66-1.25) mg/dL Glucose 133 H (74-99) mg/dL POC Glucose (mg/dL) (75-99) mg/dL Calcium 7.6 L (8.4-10.2) mg/dL 02/23/21 02/23/21 02/23/21 Range/Units 09:06 12:03 17:40 RBC (4.30-5.90) m/uL Hgb (13.0-17.5) gm/dL Hct (39.0-53.0) % MCV (80.0-100.0) fL MCHC (31.0-37.0) g/dL RDW (11.5-15.5) % Lymphocytes # (1.0-4.8) k/uL D-Dimer 4.58 H (<0.60) mg/L FEU ABG pH (7.35-7.45) ABG pCO2 (35-45) mmHg ABG pO2 (83-108) mmHg ABG HCO3 (21-25) mmol/L ABG Total CO2 (19-24) mmol/L ABG O2 Saturation (94-97) % BUN (9-20) mg/dL Creatinine (0.66-1.25) mg/dL Glucose (74-99) mg/dL POC Glucose (mg/dL) 157 H 135 H (75-99) mg/dL Calcium (8.4-10.2) mg/dL Assessment and Plan Assessment: Acute bilateral Covid pneumonia ARDS / Acute hypoxic respiratory failure secondary to above. on mechanical ventilator Elevated inflammatory markers E. coli urinary tract infection Gram-positive cocci bacteremia. Coagulase-negative staph aureus. Acute kidney injury. due to ATN. Started hemodialysis on 02/21/2020 Acute cardiac arrest 2 hours into third hemodialysis status post CPR and return of spontaneous circulation. Hyperkalemia secondary to acute kidney injury Metabolic acidosis Severe cardiomyopathy EF: 20-25% Elevated troponin, secondary to Covid infection. Possible non-ST elevated [place]. Elevated d-dimer, with no evidence of PE on CTA of the chest Mildly elevated liver enzymes, secondary to covid Elevated lactic acid, came back to normal Emphysema Plan: This is a pleasant 65 years old male who presents with Covid, hypoxic respiratory failure and elevated troponin level. Patient received Tocilizumab and 1 unit of convalescent plasma. Patient does not make much improvement for the last few days. Continue with vitamin C, vitamin D and zinc. Continue with steroids and lovenox BID Due to elevated D-dimer level.. Pulmonary and cardiology is following. Continue with antibiotics in the form of cefepime.Changed to ceftriaxone Patient was initiated on hemodialysis due to acute kidney injury and hyperkalemia. Labs and medication were reviewed.. Continue with symptomatic treatment. Resume home medication. Monitor lytes and vitals. DVT and GI prophylaxis. Further recommendations depends on the clinical course of the patient DVT prophylaxis: Subcutaneous Lovenox GI Prophylaxis: Pepcid PT/OT: Pending Prognosis is guarded Time with Patient: Greater than 30
--- NOTE | 2021-02-26 10:34 | P.PN ---
Subjective Progress Note Date: 02/24/21 Principal diagnosis: Acute bilateral Covid pneumonia Acute hypoxic respiratory failure secondary to above. on mechanical ventilator This is a pleasant 65 years old male with no significant past medical history who presents because of one-week history of dyspnea associated with high fever at 101.3 at home. Associated with coughing. He feels generally weak but no significant chest pain. Patient dyspnea was getting more worse and he was not feeling well so family brought him to the hospital. His symptoms started about 2 weeks Patient is poor historian and is oxygen saturation was troponin while he was on high flow nasal cannula and he has to be placed on BiPAP and sent to the ICU from emergency room Patient is ex-smoker, he quit a few months ago. Used to smoke 2 packs per day. Patient is tachypneic with a breathing rate of 30, he is saturating any to on 60 L/m of oxygen via high flow cannula. A febrile. CBC, and BMP are unremarkable. Liver enzymes slightly elevated with AST 100 and ALT 86 and normal bilirubin of 0.7. D-dimer is elevated at 5.7. Elevated troponin 0.03, 0.06, 0.06 Chronic varus detected CTA of the chest: No evidence of PE. Extensive bilateral pneumonia, emphysema EKG showing sinus tachycardia at 107 with the bundle branch block and QTC 523 Chest x-ray: Bilateral infiltrates Ultrasound of the lower extremities is negative for DVT on both sides In ED he was started on Lovenox, normal saline at 75 mL/h, one-time dose of tocilizumab per pulmonary team , vitamin C, zinc and vitamin D. Patient has been evaluated by pulmonary service, he was started on BiPAP and admitted to the ICU 02/11/2021 Patient remains in the ICU, monitored closely for his hypoxia, he needs BiPAP most of the time of continuously. Has increased inflammatory markers with ferritin 1519, LDH 2339 and selective 1438. D-dimer is elevated at 5.7 and he is placed on therapeutic dose of Lovenox. Chest x-ray showing bilateral infiltrate Remains on dexamethasone and vitamin cocktail for Covid, he also received 1 dose of tocilizumab and convalescent plasma Also he is on metoprolol and Lovenox 50 mg twice a day 02/12/2021 Patient seen and examined in the ICU for Covid pneumonia, this morning his respiratory status deteriorated and he had to be intubated and placed on mechanical ventilation, also blood pressure was troponin even with boluses of normal saline and he has to be placed on Levophed at 0.05. Vent setting showing PEEP 10, respiratory rate 30, dental: 450 and FiO2 is 100%. Dictated hydrogenase almost doubled to 4124 and C-reactive protein is high at 20. D-dimer more than 34. Liver enzymes slightly elevated. She remains on metoprolol 25 mg, Lovenox 50 mg dexamethasone, vitamin C, D and zinc. Also he is started on small dose of Levophed. And metoprolol 02/14/2021 Patient is currently in MICU and remains intubated. Patient was intubated on 02/12/2021. Currently on mechanical ventilator and is on sedation. Chest x-ray showed COPD with borderline heart size. Diffuse interstitial opacities and more confluent bibasilar airspace disease, right greater than left, (without significant change. Laboratory data showed D-dimer 24.99, potassium 5.2, bicarb 34 BUN 24 creatinine 0.79 calcium 8.1 ferritin 1008.5 AST 91 ALT 208 LDH 2000 CPK 194, CRP 14.0. Patient is being continued on dexamethasone 6 mg IV daily, Lovenox 50 mg subcu twice daily and multivitamins. Pulmonary is on board. Patient is tachypneic. Afebrile. 02/15/2021 Patient is currently in MICU remains intubated and also on sedation and paralyzed. Assist control 500, respiratory 32 and PEEP of 17 and FiO2 30%. Chest x-ray showed mild improvement of diffuse increased lung markings. Patient is tachypneic. Blood pressure is stable. Patient is afebrile. Laboratory data showed diabetes 11.7 hemoglobin 16.1 MCV 101.1 and platelets 178 ABG showed pH of 7.3 PCO2 73 and PO2 53 Sodium 137 potassium 5.6 bicarb is 34 BUN 34 and creatinine 0.9 AST is 57 ALT from 58 LDH 1693 CRP 10.3 Patient is on enteral feeding. 02/16/2021 Patient is currently MICU on mechanical L also on sedation and paralyzed. Currently on assist control 100 PEEP of 17 and FiO2 50%. ABG showed pH of 7.31, PCO2 68 and PO2 60 Chest x-ray showed bibasilar infiltrates. Findings are improving. Laboratory showed WBC 12.7 hemoglobin 15.3 and platelets 167 D-dimer is 9.64 sodium 137 potassium 5.1 bicarb is 34 BUN 59 creatinine 1.52 blood sugar is 150 AST 61 ALT 144 LDH 1363 total protein 5.9 albumin 3.1 and procalcitonin 1.25 Patient is being continued on dexamethasone, Lovenox twice daily, multivitamins. Critical care team is on board. 02/17/2021 Patient currently in the MICU and remains on mechanical ventilator. Sedated and paralyzed. Assist-control 450 respiratory rate 32 PEEP of 17 and FiO2 50%. Chest x-ray showed COPD and continued bibasilar airspace disease and background increase in interstitial opacity. Laboratory data showed WBC 13.6 hemoglobin 14.1 and platelets 162 D-dimer is 5.41 pH of 7.27, PCO2 82 and PO2 56 Sodium 138 potassium 5.5 BUN 59 and creatinine 1.21 AST 65 ALT 143 LDH 1230 CRP 6.5 and pro calcitonin level of 0.73 Patient was started on cefepime and vancomycin. 02/18/2021 Patient is currently in the MICU. Currently sedated and paralyzed. Patient became hypoxic and decompensated with sedation holiday and was put back on sedation and currently paralyzed. Assist-control 450 PEEP of 17 and FiO2 50%. Chest x-ray showed stable findings. T-max 100.4 Laboratory data showed LDH 1169, CRP 1.1 and the creatinine went up to 1.3 to. WBC 11.8. Otherwise patient is being continued on Decadron 6 mg IV every 12 and Lovenox 50 mg every 12. Patient has been afebrile. Urine culture showed gram-negative bacilli and is currently getting cefepime. Blood cultures grew gram-positive cocci and is on vancomycin until final is nothing blood cultures. Pulmonary is on board. 02/19/2021 Patient is currently on mechanical ventilator and paralyzed. Assist-control 450, PEEP of 17 and FiO2 60%. Chest x-ray showed diffuse bilateral pulmonary infiltrates mostly in the lung bases. Laboratory data showed WBC 12.4 hemoglobin 13.1 and platelets 86 D-dimer 4.03 Potassium 5.8, BUN 80 and creatinine 2.5, pro calcitonin 0.88, LDH 898, CRP 1.6 and alk phos 108 at length patient is being continued on DEXA was on, Lovenox twice a day and antibiotics in the form of cefepime for E. coli urinary tract infection. Follow-up repeat blood cultures. Vancomycin has been discontinued.. Patient was seen by nephrology and added Midodrin 3 times a day. Critical care team and is on board. 02/20/2021 Patient is sedated and intubated and paralyzed. Remains in ICU and [facility]. Assist-control 450, PEEP of 17 and FiO2 60%. On IV hydration with normal saline 70 mL per hour. Patient is tolerating enteral feeding. Afebrile. Chest x-ray showed COPD and borderline heart size. Interstitial changes and minimal lung airspace disease no significant change. Laboratory data showed WBC 9.6, hemoglobin 12.9 platelets 168 Sodium 139 potassium 6.1, BUN 99 and creatinine 4.15, ferritin 479, AST 31 ALT 94 alk phos 65 LDH 1032 and CRP 2.0 Patient be continued on cefepime. Nephrology is on board. IV hydration with normal saline. Continued on dexamethasone and Lovenox. Prognosis guarded in this time. 02/21/2021 Patient is currently in MICU intubated and sedated. Assist-control 480 and FiO2 60% and PEEP of 17. Peak pressures are still high around 37. Chest x-ray showed COPD and stable bilateral airspace disease especially in the periphery and lower lungs. Patient being continued on dexamethasone IV twice daily and Lovenox. Nephrology is on board due to acute kidney injury and ATN. Patient was started on hemodialysis last night. And again today. Laboratory data showed potassium 6.1, BUN 98 and creatinine 4.9. WBC 9.1 and hemoglobin 12.3 and platelets 165 urine culture showed E. coli and blood cultures told coagulase-negative staph aureus. Critical care team is following closely. 02/22/2021 Patient remained mechanical ventilator and on sedation. Assist-control 480 FiO2 60% and PEEP of 17. ABG showed pH of 7.15, PCO2 75-PO2 67 chest x-ray showed stable portable chest. Laboratory data showed potassium 6.0, BUN 91 and creatinine 5.41 patient was resting hemodialysis today. Patient went into cardiac arrest and CODE BLUE was initiated with return of spontaneous circulation.Was started on amiodarone drip. Laboratory showed sodium 138 potassium 6.0 BUN 91 and creatinine 5.41. Critical care team and nephrology is on board. Prognosis guarded at this time. 02/23/2021 Patient is currently [id number]. Remains intubated. Assist-control 450 with FiO2 80% and PEEP of 17. ABG showed pCO2 81 and pH of 7.15 and pO2 69. Patient remains on bicarb and amiodarone drip. Amiodarone will be changed to by mouth today. Otherwise patient is sedated and paralyzed. Next and chest x-ray showed right lateral patchy infiltrates. Laboratory data showed diabetes 8.1 hemoglobin 9.6 and BUN 19 creatinine 5.44. Pulmonary, nephrology is following. 02/24/2021 Patient is currently in the MICU. Intubated and on mechanical ventilation. Se dated and paralyzed. Assist-control with PEEP of 18 and 89% FiO2. PKD pressure still high at 38. Chest x-ray showed bilateral patchy infiltrates. Next and patient is being continued on bicarb drip and oral amiodarone. Also on Nimbex drip and norepinephrine. Nephrology is on board and is planning for hemodialysis today. Family wants him to be full code. Laboratory data showed BUN 118 and creatinine 6.79. Prognosis is guarded at this time. Nephrology and critical care team on board. Current medications reviewed. Objective - Vital Signs Vital signs: Vital Signs Temp 99.3 F 02/24/21 20:00 Pulse 95 02/24/21 20:00 Resp 40 H 02/24/21 20:00 BP 120/67 02/24/21 20:00 Pulse Ox 84 L 02/24/21 20:00 Intake & Output 02/24/21 02/24/21 02/25/21 06:59 18:59 06:59 Intake Total 2753.549 2643.968 318 Output Total 0 520 0 Balance 2753.549 2123.968 318 Weight 126.8 kg 126.8 kg Intake: IV 1599 1353 246 Dextrose 5% in Water 1, 1300 1100 200 000 ml @ 100 mls/hr IV . [id number] MARIO with Sodium Bicarb (1 Meq/ml) 150 ml Rx#:[id number] Pressure bag 39 33 6 Sodium Chloride 0.9% 1, 260 220 40 000 ml @ 20 mls/hr IV . Q24H MARIO Rx#:[id number] Intake, IV Titration 594.549 682.968 Amount Cisatracurium 200 mg In 194.594 192.694 Sodium Chloride 0.9% 180 ml @ 1 MCG/KG/MIN 5.987 mls/hr IV .Q24H MARIO Rx#: [id number] Norepinephrine 32 mg In 184.452 90.274 Sodium Chloride 0.9% 218 ml @ 0.05 MCG/KG/MIN 2. 759 mls/hr IV .Q24H MARIO Rx#:[id number] cefTRIAXone 1 gm In 100 Sodium Chloride 0.9% 50 ml @ 100 mls/hr IVPB Q24HR MARIO Rx#:[id number] fentaNYL (PF). 1,000 mcg 79.442 100 In Sodium Chloride 0.9% 80 ml @ Per Protocol IV . Q0M MARIO Rx#:[id number] propofoL 1,000 mg In 136.061 200 Empty Bag 1 bag @ Titrate IV .Q0M MARIO Rx#: [id number] Tube Feeding 560 408 72 Other 200 Output: Urine 0 20 0 Hemodialysis 500 Other: Voiding Method Indwelling Catheter Indwelling Catheter Indwelling Catheter # Voids 45 ABP, PAP, CO, CI - Last Documented Arterial Blood Pressure 111/36 - Exam - Exam -GENERAL: The patient is intubated and sedated . HEENT: Pupils are round and equally reacting to light. No scleral icterus. No conjunctival pallor. Normocephalic, atraumatic. No thyromegaly. CARDIOVASCULAR: S1 and S2 present. No murmurs, rubs, or gallops. PULMONARY: Chest is clear to auscultation, no wheezing or crackles. ABDOMEN: Soft, nontender, nondistended, normoactive bowel sounds. No palpable organomegaly. MUSCULOSKELETAL: No joint swelling or deformity. EXTREMITIES: No cyanosis, clubbing, or pedal edema. NEUROLOGICAL: Gross neurological examination did not reveal any focal deficits. SKIN: No rashes. no petechiae. - Labs CBC & Chem 7: 02/26/21 05:11 02/26/21 05:11 Labs: Abnormal Lab Results - Last 24 Hours (Table) 02/24/21 02/24/21 02/24/21 Range/Units 00:08 04:45 05:00 RBC (4.30-5.90) m/uL Hgb (13.0-17.5) gm/dL Hct (39.0-53.0) % MCV (80.0-100.0) fL RDW (11.5-15.5) % Plt Count (150-450) k/uL Lymphocytes # (Manual) (1.0-4.8) k/uL Monocytes # (Manual) (0-1.0) k/uL Metamyelocytes # (Man) (0) k/uL Nucleated RBCs (0-0) /100 WBC D-Dimer 4.25 H (<0.60) mg/L FEU ABG pH 7.18 L* (7.35-7.45) ABG pCO2 81 H* (35-45) mmHg ABG pO2 58 L* (83-108) mmHg ABG HCO3 30 H (21-25) mmol/L ABG Total CO2 33 H (19-24) mmol/L ABG O2 Saturation 88.2 L (94-97) % Potassium (3.5-5.1) mmol/L BUN (9-20) mg/dL Creatinine (0.66-1.25) mg/dL Glucose (74-99) mg/dL POC Glucose (mg/dL) 161 H (75-99) mg/dL Calcium (8.4-10.2) mg/dL 02/24/21 02/24/21 02/24/21 Range/Units 05:00 05:00 11:54 RBC 2.70 L (4.30-5.90) m/uL Hgb 8.4 L (13.0-17.5) gm/dL Hct 27.1 L (39.0-53.0) % MCV 100.1 H (80.0-100.0) fL RDW 17.3 H (11.5-15.5) % Plt Count 147 L (150-450) k/uL Lymphocytes # (Manual) 0.99 L (1.0-4.8) k/uL Monocytes # (Manual) 1.25 H (0-1.0) k/uL Metamyelocytes # (Man) 0.05 H (0) k/uL Nucleated RBCs 1 H (0-0) /100 WBC D-Dimer (<0.60) mg/L FEU ABG pH (7.35-7.45) ABG pCO2 (35-45) mmHg ABG pO2 (83-108) mmHg ABG HCO3 (21-25) mmol/L ABG Total CO2 (19-24) mmol/L ABG O2 Saturation (94-97) % Potassium 5.3 H (3.5-5.1) mmol/L BUN 118 H* (9-20) mg/dL Creatinine 6.79 H (0.66-1.25) mg/dL Glucose 130 H (74-99) mg/dL POC Glucose (mg/dL) 132 H (75-99) mg/dL Calcium 7.7 L (8.4-10.2) mg/dL 02/24/21 Range/Units 17:35 RBC (4.30-5.90) m/uL Hgb (13.0-17.5) gm/dL Hct (39.0-53.0) % MCV (80.0-100.0) fL RDW (11.5-15.5) % Plt Count (150-450) k/uL Lymphocytes # (Manual) (1.0-4.8) k/uL Monocytes # (Manual) (0-1.0) k/uL Metamyelocytes # (Man) (0) k/uL Nucleated RBCs (0-0) /100 WBC D-Dimer (<0.60) mg/L FEU ABG pH (7.35-7.45) ABG pCO2 (35-45) mmHg ABG pO2 (83-108) mmHg ABG HCO3 (21-25) mmol/L ABG Total CO2 (19-24) mmol/L ABG O2 Saturation (94-97) % Potassium (3.5-5.1) mmol/L BUN (9-20) mg/dL Creatinine (0.66-1.25) mg/dL Glucose (74-99) mg/dL POC Glucose (mg/dL) 139 H (75-99) mg/dL Calcium (8.4-10.2) mg/dL Assessment and Plan Assessment: Acute bilateral Covid pneumonia ARDS / Acute hypoxic respiratory failure secondary to above. on mechanical ventilator Elevated inflammatory markers E. coli urinary tract infection Gram-positive cocci bacteremia. Coagulase-negative staph aureus. Acute kidney injury. due to ATN. Started hemodialysis on 02/21/2020 Acute cardiac arrest 2 hours into third hemodialysis status post CPR and return of spontaneous circulation. Hyperkalemia secondary to acute kidney injury Metabolic acidosis Severe cardiomyopathy EF: 20-25% Elevated troponin, secondary to Covid infection. Possible non-ST elevated LA. Elevated d-dimer, with no evidence of PE on CTA of the chest Mildly elevated liver enzymes, secondary to covid Elevated lactic acid, came back to normal Emphysema Plan: This is a pleasant 65 years old male who presents with Covid, hypoxic respiratory failure and elevated troponin level. Patient received Tocilizumab and 1 unit of convalescent plasma. Patient does not make much improvement for the last few days. Continue with vitamin C, vitamin D and zinc. Continue with steroids and lovenox BID Due to elevated D-dimer level.. Pulmonary and cardiology is following. Continue with antibiotics in the form of cefepime.Changed to ceftriaxone Patient was initiated on hemodialysis due to acute kidney injury and hyperkalemia. Labs and medication were reviewed.. Continue with symptomatic treatment. Resume home medication. Monitor lytes and vitals. DVT and GI prophylaxis. Further recommendations depends on the clinical course of the patient DVT prophylaxis: Subcutaneous Lovenox GI Prophylaxis: Pepcid PT/OT: Pending Prognosis is guarded Time with Patient: Greater than 30
--- NOTE | 2021-02-26 10:37 | P.PN ---
Subjective Progress Note Date: 02/25/21 Principal diagnosis: Acute bilateral Covid pneumonia Acute hypoxic respiratory failure secondary to above. on mechanical ventilator This is a pleasant 65 years old male with no significant past medical history who presents because of one-week history of dyspnea associated with high fever at 101.3 at home. Associated with coughing. He feels generally weak but no significant chest pain. Patient dyspnea was getting more worse and he was not feeling well so family brought him to the hospital. His symptoms started about 2 weeks Patient is poor historian and is oxygen saturation was troponin while he was on high flow nasal cannula and he has to be placed on BiPAP and sent to the ICU from emergency room Patient is ex-smoker, he quit a few months ago. Used to smoke 2 packs per day. Patient is tachypneic with a breathing rate of 30, he is saturating any to on 60 L/m of oxygen via high flow cannula. A febrile. CBC, and BMP are unremarkable. Liver enzymes slightly elevated with AST 100 and ALT 86 and normal bilirubin of 0.7. D-dimer is elevated at 5.7. Elevated troponin 0.03, 0.06, 0.06 Chronic varus detected CTA of the chest: No evidence of PE. Extensive bilateral pneumonia, emphysema EKG showing sinus tachycardia at 107 with the bundle branch block and QTC 523 Chest x-ray: Bilateral infiltrates Ultrasound of the lower extremities is negative for DVT on both sides In ED he was started on Lovenox, normal saline at 75 mL/h, one-time dose of tocilizumab per pulmonary team , vitamin C, zinc and vitamin D. Patient has been evaluated by pulmonary service, he was started on BiPAP and admitted to the ICU 02/11/2021 Patient remains in the ICU, monitored closely for his hypoxia, he needs BiPAP most of the time of continuously. Has increased inflammatory markers with ferritin 1519, LDH 2339 and selective 1438. D-dimer is elevated at 5.7 and he is placed on therapeutic dose of Lovenox. Chest x-ray showing bilateral infiltrate Remains on dexamethasone and vitamin cocktail for Covid, he also received 1 dose of tocilizumab and convalescent plasma Also he is on metoprolol and Lovenox 50 mg twice a day 02/12/2021 Patient seen and examined in the ICU for Covid pneumonia, this morning his respiratory status deteriorated and he had to be intubated and placed on mechanical ventilation, also blood pressure was troponin even with boluses of normal saline and he has to be placed on Levophed at 0.05. Vent setting showing PEEP 10, respiratory rate 30, dental: 450 and FiO2 is 100%. Dictated hydrogenase almost doubled to 4124 and C-reactive protein is high at 20. D-dimer more than 34. Liver enzymes slightly elevated. She remains on metoprolol 25 mg, Lovenox 50 mg dexamethasone, vitamin C, D and zinc. Also he is started on small dose of Levophed. And metoprolol 02/14/2021 Patient is currently in MICU and remains intubated. Patient was intubated on 02/12/2021. Currently on mechanical ventilator and is on sedation. Chest x-ray showed COPD with borderline heart size. Diffuse interstitial opacities and more confluent bibasilar airspace disease, right greater than left, (without significant change. Laboratory data showed D-dimer 24.99, potassium 5.2, bicarb 34 BUN 24 creatinine 0.79 calcium 8.1 ferritin 1008.5 AST 91 ALT 208 LDH 2000 CPK 194, CRP 14.0. Patient is being continued on dexamethasone 6 mg IV daily, Lovenox 50 mg subcu twice daily and multivitamins. Pulmonary is on board. Patient is tachypneic. Afebrile. 02/15/2021 Patient is currently in MICU remains intubated and also on sedation and paralyzed. Assist control 500, respiratory 32 and PEEP of 17 and FiO2 30%. Chest x-ray showed mild improvement of diffuse increased lung markings. Patient is tachypneic. Blood pressure is stable. Patient is afebrile. Laboratory data showed diabetes 11.7 hemoglobin 16.1 MCV 101.1 and platelets 178 ABG showed pH of 7.3 PCO2 73 and PO2 53 Sodium 137 potassium 5.6 bicarb is 34 BUN 34 and creatinine 0.9 AST is 57 ALT from 58 LDH 1693 CRP 10.3 Patient is on enteral feeding. 02/16/2021 Patient is currently MICU on mechanical L also on sedation and paralyzed. Currently on assist control 100 PEEP of 17 and FiO2 50%. ABG showed pH of 7.31, PCO2 68 and PO2 60 Chest x-ray showed bibasilar infiltrates. Findings are improving. Laboratory showed WBC 12.7 hemoglobin 15.3 and platelets 167 D-dimer is 9.64 sodium 137 potassium 5.1 bicarb is 34 BUN 59 creatinine 1.52 blood sugar is 150 AST 61 ALT 144 LDH 1363 total protein 5.9 albumin 3.1 and procalcitonin 1.25 Patient is being continued on dexamethasone, Lovenox twice daily, multivitamins. Critical care team is on board. 02/17/2021 Patient currently in the MICU and remains on mechanical ventilator. Sedated and paralyzed. Assist-control 450 respiratory rate 32 PEEP of 17 and FiO2 50%. Chest x-ray showed COPD and continued bibasilar airspace disease and background increase in interstitial opacity. Laboratory data showed WBC 13.6 hemoglobin 14.1 and platelets 162 D-dimer is 5.41 pH of 7.27, PCO2 82 and PO2 56 Sodium 138 potassium 5.5 BUN 59 and creatinine 1.21 AST 65 ALT 143 LDH 1230 CRP 6.5 and pro calcitonin level of 0.73 Patient was started on cefepime and vancomycin. 02/18/2021 Patient is currently in the MICU. Currently sedated and paralyzed. Patient became hypoxic and decompensated with sedation holiday and was put back on sedation and currently paralyzed. Assist-control 450 PEEP of 17 and FiO2 50%. Chest x-ray showed stable findings. T-max 100.4 Laboratory data showed LDH 1169, CRP 1.1 and the creatinine went up to 1.3 to. WBC 11.8. Otherwise patient is being continued on Decadron 6 mg IV every 12 and Lovenox 50 mg every 12. Patient has been afebrile. Urine culture showed gram-negative bacilli and is currently getting cefepime. Blood cultures grew gram-positive cocci and is on vancomycin until final is nothing blood cultures. Pulmonary is on board. 02/19/2021 Patient is currently on mechanical ventilator and paralyzed. Assist-control 450, PEEP of 17 and FiO2 60%. Chest x-ray showed diffuse bilateral pulmonary infiltrates mostly in the lung bases. Laboratory data showed WBC 12.4 hemoglobin 13.1 and platelets 86 D-dimer 4.03 Potassium 5.8, BUN 80 and creatinine 2.5, pro calcitonin 0.88, LDH 898, CRP 1.6 and alk phos 108 at length patient is being continued on DEXA was on, Lovenox twice a day and antibiotics in the form of cefepime for E. coli urinary tract infection. Follow-up repeat blood cultures. Vancomycin has been discontinued.. Patient was seen by nephrology and added Midodrin 3 times a day. Critical care team and is on board. 02/20/2021 Patient is sedated and intubated and paralyzed. Remains in ICU and on [facility] anical ventilator. Assist-control 450, PEEP of 17 and FiO2 60%. On IV hydration with normal saline 70 mL per hour. Patient is tolerating enteral feeding. Afebrile. Chest x-ray showed COPD and borderline heart size. Interstitial changes and minimal lung airspace disease no significant change. Laboratory data showed WBC 9.6, hemoglobin 12.9 platelets 168 Sodium 139 potassium 6.1, BUN 99 and creatinine 4.15, ferritin 479, AST 31 ALT 94 alk phos 65 LDH 1032 and CRP 2.0 Patient be continued on cefepime. Nephrology is on board. IV hydration with normal saline. Continued on dexamethasone and Lovenox. Prognosis guarded in this time. 02/21/2021 Patient is currently in MICU intubated and sedated. Assist-control 480 and FiO2 60% and PEEP of 17. Peak pressures are still high around 37. Chest x-ray showed COPD and stable bilateral airspace disease especially in the periphery and lower lungs. Patient being continued on dexamethasone IV twice daily and Lovenox. Nephrology is on board due to acute kidney injury and ATN. Patient was started on hemodialysis last night. And again today. Laboratory data showed potassium 6.1, BUN 98 and creatinine 4.9. WBC 9.1 and hemoglobin 12.3 and platelets 165 urine culture showed E. coli and blood cultures told coagulase-negative staph aureus. Critical care team is following closely. 02/22/2021 Patient remained mechanical ventilator and on sedation. Assist-control 480 FiO2 60% and PEEP of 17. ABG showed pH of 7.15, PCO2 75-PO2 67 chest x-ray showed stable portable chest. Laboratory data showed potassium 6.0, BUN 91 and creatinine 5.41 patient was resting hemodialysis today. Patient went into cardiac arrest and CODE BLUE was initiated with return of spontaneous circulation.Was started on amiodarone drip. Laboratory showed sodium 138 potassium 6.0 BUN 91 and creatinine 5.41. Critical care team and nephrology is on board. Prognosis guarded at this time. 02/23/2021 Patient is currently [id number]. Remains intubated. Assist-control 450 with FiO2 80% and PEEP of 17. ABG showed pCO2 81 and pH of 7.15 and pO2 69. Patient remains on bicarb and amiodarone drip. Amiodarone will be changed to by mouth today. Otherwise patient is sedated and paralyzed. Next and chest x-ray showed right lateral patchy infiltrates. Laboratory data showed diabetes 8.1 hemoglobin 9.6 and BUN 19 creatinine 5.44. Pulmonary, nephrology is following. 02/24/2021 Patient is currently in the MICU. Intubated and on mechanical ventilation. Se dated and paralyzed. Assist-control with PEEP of 18 and 89% FiO2. PKD pressure still high at 38. Chest x-ray showed bilateral patchy infiltrates. Next and patient is being continued on bicarb drip and oral amiodarone. Also on Nimbex drip and norepinephrine. Nephrology is on board and is planning for hemodialysis today. Family wants him to be full code. Laboratory data showed BUN 118 and creatinine 6.79. Prognosis is guarded at this time. Nephrology and critical care team on board. 02/25/2021 Patient is currently on mechanical ventilator. Sedated and paralyzed. Assist- control 400, FiO2 90% and PEEP of 18. Currently on September 09 drip and bicarb drip and norepinephrine at low-dose. ABG showed pH 7.21, pCO2 78 and pO2 48. Patient is being dialyzed today. Nephrology is on board. Chest x-ray showed findings consistent with patient's history of pneumonia. Correlate for ARDS, edema. Laboratory data showed sodium 136 potassium 5.2 bicarb 32 BUN 105 and creatinine was 6.03, calcium 7.7 Current medications reviewed. Objective - Vital Signs Vital signs: Vital Signs Temp 98.6 F 02/25/21 16:00 Pulse 85 02/25/21 20:00 Resp 40 H 02/25/21 20:00 BP 116/46 02/25/21 20:00 Pulse Ox 89 L 02/25/21 20:00 Intake & Output 02/25/21 02/25/21 02/26/21 06:59 18:59 06:59 Intake Total 2363.091 2106.137 218 Output Total 0 1000 0 Balance 2363.091 1106.137 218 Weight 128.9 kg Intake: IV 1599 1073 146 Dextrose 5% in Water 1, 1300 900 100 000 ml @ 50 mls/hr IV . Q23H MARIO with Sodium Bicarb (1 Meq/ml) 150 ml Rx#:[id number] Pressure bag 39 33 6 Sodium Chloride 0.9% 1, 260 140 40 000 ml @ 20 mls/hr IV . Q24H MARIO Rx#:[id number] Intake, IV Titration 308.091 267.137 Amount Cisatracurium 200 mg In 200 177.225 Sodium Chloride 0.9% 180 ml @ 1 MCG/KG/MIN 5.987 mls/hr IV .Q24H MARIO Rx#: [id number] Norepinephrine 32 mg In 38.161 89.912 Sodium Chloride 0.9% 218 ml @ 0.05 MCG/KG/MIN 2. 759 mls/hr IV .Q24H MARIO Rx#:[id number] fentaNYL (PF). 1,000 mcg 69.93 In Sodium Chloride 0.9% 80 ml @ Per Protocol IV . Q0M [facility] Rx#:[id number] Tube Feeding 396 396 72 Blood Product 310 Rc As-1 Unit 310 [id number] Other 60 60 Output: Urine 0 0 0 Hemodialysis 1000 Other: Voiding Method Indwelling Catheter Indwelling Catheter Indwelling Catheter ABP, PAP, CO, CI - Last Documented Arterial Blood Pressure 102/33 - Exam - Exam -GENERAL: The patient is intubated and sedated . HEENT: Pupils are round and equally reacting to light. No scleral icterus. No conjunctival pallor. Normocephalic, atraumatic. No thyromegaly. CARDIOVASCULAR: S1 and S2 present. No murmurs, rubs, or gallops. PULMONARY: Chest is clear to auscultation, no wheezing or crackles. ABDOMEN: Soft, nontender, nondistended, normoactive bowel sounds. No palpable organomegaly. MUSCULOSKELETAL: No joint swelling or deformity. EXTREMITIES: No cyanosis, clubbing, or pedal edema. NEUROLOGICAL: Gross neurological examination did not reveal any focal deficits. SKIN: No rashes. no petechiae. - Labs CBC & Chem 7: 02/26/21 05:11 02/26/21 05:11 Labs: Abnormal Lab Results - Last 24 Hours (Table) 0402/25/21 02/25/21 Range/Units 23:21 04:05 05:41 RBC 2.32 L (4.30-5.90) m/uL Hgb 7.7 L (13.0-17.5) gm/dL Hct 22.9 L (39.0-53.0) % RDW 16.9 H (11.5-15.5) % Monocytes # (Manual) 1.72 H (0-1.0) k/uL Metamyelocytes # (Man) 0.08 H (0) k/uL Nucleated RBCs 8 H (0-0) /100 WBC ABG pH 7.22 L (7.35-7.45) ABG pCO2 79 H* (35-45) mmHg ABG pO2 48 L* (83-108) mmHg ABG HCO3 32 H (21-25) mmol/L ABG Total CO2 35 H (19-24) mmol/L ABG O2 Saturation 79.9 L (94-97) % Sodium (137-145) mmol/L Potassium (3.5-5.1) mmol/L Chloride (98-107) mmol/L Carbon Dioxide (22-30) mmol/L BUN (9-20) mg/dL Creatinine (0.66-1.25) mg/dL Glucose (74-99) mg/dL POC Glucose (mg/dL) 149 H (75-99) mg/dL Calcium (8.4-10.2) mg/dL Crossmatch 02/25/21 02/25/21 02/25/21 Range/Units 05:41 07:22 10:06 RBC (4.30-5.90) m/uL Hgb (13.0-17.5) gm/dL Hct (39.0-53.0) % RDW (11.5-15.5) % Monocytes # (Manual) (0-1.0) k/uL Metamyelocytes # (Man) (0) k/uL Nucleated RBCs (0-0) /100 WBC ABG pH (7.35-7.45) ABG pCO2 (35-45) mmHg ABG pO2 (83-108) mmHg ABG HCO3 (21-25) mmol/L ABG Total CO2 (19-24) mmol/L ABG O2 Saturation (94-97) % Sodium 136 L (137-145) mmol/L Potassium 5.2 H (3.5-5.1) mmol/L Chloride 94 L (98-107) mmol/L Carbon Dioxide 32 H (22-30) mmol/L BUN 105 H* (9-20) mg/dL Creatinine 6.03 H (0.66-1.25) mg/dL Glucose 137 H (74-99) mg/dL POC Glucose (mg/dL) 147 H (75-99) mg/dL Calcium 7.7 L (8.4-10.2) mg/dL Crossmatch See Detail 02/25/21 02/25/21 02/25/21 Range/Units 11:46 16:52 17:13 RBC (4.30-5.90) m/uL Hgb (13.0-17.5) gm/dL Hct (39.0-53.0) % RDW (11.5-15.5) % Monocytes # (Manual) (0-1.0) k/uL Metamyelocytes # (Man) (0) k/uL Nucleated RBCs (0-0) /100 WBC ABG pH (7.35-7.45) ABG pCO2 (35-45) mmHg ABG pO2 (83-108) mmHg ABG HCO3 (21-25) mmol/L ABG Total CO2 (19-24) mmol/L ABG O2 Saturation (94-97) % Sodium 134 L (137-145) mmol/L Potassium (3.5-5.1) mmol/L Chloride 93 L (98-107) mmol/L Carbon Dioxide 35 H (22-30) mmol/L BUN 83 H (9-20) mg/dL Creatinine 4.72 H (0.66-1.25) mg/dL Glucose 116 H (74-99) mg/dL POC Glucose (mg/dL) 127 H 118 H (75-99) mg/dL Calcium 7.7 L (8.4-10.2) mg/dL Crossmatch 02/25/21 02/25/21 Range/Units 17:18 20:58 RBC (4.30-5.90) m/uL Hgb (13.0-17.5) gm/dL Hct (39.0-53.0) % RDW (11.5-15.5) % Monocytes # (Manual) (0-1.0) k/uL Metamyelocytes # (Man) (0) k/uL Nucleated RBCs (0-0) /100 WBC ABG pH (7.35-7.45) ABG pCO2 (35-45) mmHg ABG pO2 (83-108) mmHg ABG HCO3 (21-25) mmol/L ABG Total CO2 (19-24) mmol/L ABG O2 Saturation (94-97) % Sodium (137-145) mmol/L Potassium (3.5-5.1) mmol/L Chloride (98-107) mmol/L Carbon Dioxide (22-30) mmol/L BUN (9-20) mg/dL Creatinine (0.66-1.25) mg/dL Glucose (74-99) mg/dL POC Glucose (mg/dL) 241 H 106 H (75-99) mg/dL Calcium (8.4-10.2) mg/dL Crossmatch Assessment and Plan Assessment: Acute bilateral Covid pneumonia ARDS / Acute hypoxic respiratory failure secondary to above. on mechanical ventilator, sedated and paralyzed. Elevated inflammatory markers E. coli urinary tract infection Gram-positive cocci bacteremia. Coagulase-negative staph aureus. Acute kidney injury. due to ATN. Started hemodialysis on 02/21/2020 Acute cardiac arrest 2 hours into third hemodialysis status post CPR and return of spontaneous circulation. Hyperkalemia secondary to acute kidney injury Metabolic acidosis Severe cardiomyopathy EF: 20-25% Elevated troponin, secondary to Covid infection. Possible non-ST elevated [place]. Elevated d-dimer, with no evidence of PE on CTA of the chest Mildly elevated liver enzymes, secondary to covid Elevated lactic acid, came back to normal Emphysema Plan: This is a pleasant 65 years old male who presents with Covid, hypoxic respiratory failure and elevated troponin level. Patient received Tocilizumab and 1 unit of convalescent plasma. Patient does not make much improvement for the last few days. Continue with vitamin C, vitamin D and zinc. Continue with steroids and lovenox BID Due to elevated D-dimer level.. Pulmonary and cardiology is following. Continue with antibiotics in the form of cefepime.Changed to ceftriaxone Patient was initiated on hemodialysis due to acute kidney injury and hyperkalemia. Labs and medication were reviewed.. Continue with symptomatic treatment. Resume home medication. Monitor lytes and vitals. DVT and GI prophylaxis. Further recommendations depends on the clinical course of the patient DVT prophylaxis: Subcutaneous Lovenox GI Prophylaxis: Pepcid PT/OT: Pending Prognosis is guarded Time with Patient: Greater than 30
--- NOTE | 2021-02-26 11:12 | P.PN ---
Subjective Progress Note Date: 02/26/21 Principal diagnosis: Acute hypoxic respiratory failure secondary to COVID-19 pneumonia and ARDS 02/13/2021, the patient is being seen for follow-up in intensive care unit. This is a 65-year-old -[place] male patient was admitted with Covid 19 related pneumonia and the patient was initially given high flow oxygen and later on BiPAP and because of ongoing failure, the patient was intubated and placed on a mechanical ventilator. He is a chronic smoker. He also smokes marijuana. The patient was intubated yesterday on 02/12/2021 because of respiratory failure related to Covid 19 related pneumonia. The patient is currently on assist control mode of ventilation. The patient is a rate of 36 with FiO2 of 9 90% 0% and a PEEP of 15 and tidal volume of 500. Your pressures around 41 metastatic pressure of 39. The patient remains sedated on propofol running at 60 mcg/kg per minute and the patient is also paralyzed at 2 mcg/kg per minute. Post intubation, the patient requires also pressors and currently norepinephrine is running at 0.02mcg/kg/per minute. The patient is mechanical ventilator. The patient normal saline at the rate of 75 mL an hour. Chest x-ray showing diffuse but the pulmonary patchy infiltrates. ET tube is in a good location. Note that the patient to telemetry markers from yesterday were quite elevated. LDH level was 4124 and the CRP was 20.5. The patient is currently on Decadron. The patient is also on Lovenox and the patient also received convalescent plasma and Tocilizumab. The LFTs are slightly elevated and the patient has some mild transaminitis related to COVID 19. Based on elevation of the d-dimer, the patient is being given 50 mg of Lovenox which is a half a milligram per KG every 12 hours. The blood gases from today showing a pH of 7.23 with a pCO2 of 63 and pO2 of 109. This was done and FiO2 of 90%. Blood work from today shows a d- dimer of more than 34, potassium level is down to 6.2 and the patient will need obviously D50 insulin along with 2 A of sodium bicarb. This hyperkalemia is related to acidosis. The patient's liver function tests are also elevated as the patient has mild transaminitis, ALT is 229, AST 307, LDH is 2716, pro calcitonin is at 0.14, CRP was 17.8. On 02/14/2021, I'm seeing the patient for a follow-up. This is a case of Covid 19 related pneumonia with secondary hypoxic respiratory failure and the patient has been intubated on 02/12/2021 and the patient is currently being seen in follow-up. On today's evaluation, the patient is on propofol which is running at 75 mg/kg per minute and the patient is also on Nimbex at 3 mcg/kg per minute. He is was sedated insipidus with the mechanical ventilator which is currently running at a tidal volume of 500 with a rate of 36 and it PEEP 15 and an FiO2 of 60%. The patient's blood gases from today showed a pH of 7.37 with a pCO2 of 64 and pO2 of 62 and this was on FiO2 of 60%. His chest x-ray from today is showing diffuse bilateral pulmonary infiltrates, essentially unchanged compared to yesterday and ET tube is in a good location. The patient's inflammatory markers on today's evaluation remain elevated although they're improving. The patient's LDH level is down to 2000 and his CRP level is down to 14 and the d-d shivam is still elevated at 24 although is improving. The patient is currently on Decadron 6 mg IV every 24 hours. He is also on Lovenox 50 mg subcu 3 times a day. He is also on a bicarb drip this was added yesterday as the patient was having significant acidosis which was mainly respiratory acidosis and secondary hyperkalemia. Potassium level is down to 5.2 and a pH currently is at 7.37 and as such the bicarb infusion can be discontinued. Creatinine is down to 0.7 and his also recovered from his acute kidney injury. He is on enteral feeding for nutritional support and currently this is running at 27 mL an hour of Nepro. The urine output is adequate and the patient's net fluid balance is +2.1 L over the past 24 hours. His weight is currently up to 101 kg. On today's evaluation for 2020, the patient remains sedated and paralyzed. The patient is on propofol at 75 mcg/kg per minute and the patient is also on Nimbex at 2 mcg/kg/m. The patient is calm and comfortable and successful mechanical ventilator which is running currently with tidal volume of 500, rate of 32, PEEP of 17 and an FiO2 of 50%. The blood is from today showed a pH of 7.3 with a pCO2 of 73 and pO2 of 52. This was done and a PEEP of 17. The chest x-ray is unchanged and there is diffuse bilateral pulmonary infiltrates right more than left lower lung more than the upper lobes. ET tube is high in the tr achea and it needs to be pushed then by another centimeter. Orogastric tube is in a good location. The patient otherwise is he was dynamically stable. He remains on Decadron. He remains on Lovenox 50 mg subcutaneous twice a day. He is on IV fluids and currently is receiving normal saline at the rate of 20 mL an hour. Fluid balance over the past 24 hours has been +2.2 L. The patient has been persistently in a positive fluid balance. As for the rest of the blood work, the patient's d-dimer is at 14 which is lower, his LDH is 1693, lower and the CRP is 10.3, lower. As for the rest of the electrolytes, his potassium level is at 5.6 and a serum bicarb is 34 with a BUN of 34 and a creatinine of 0.9. He is on enteral feeding for nutritional support and he is currently receiving Nepro at 27 mL an hour. No other major events overnight. I did do some ventilator changes on the patient y . yesterday which failed. I tried to wean off his feet and it failed and the patient became hypoxic and currently is a 17 of PEEP. he has a peak airway pressure in the setting of a pressure of 36 a nd 34 respectively On 02/16/2021, the patient is being seen in follow-up in the intensive care unit . The patient remains sedated and paralyzed. On today's evaluation, propofol is running at 70 mcg/kg per minute and the patient is also paralyzed with Nimbex running at 2 mcg/kg per minute. He is essentially the same as yesterday. Meanwhile, the patient remains on a mechanical ventilator. The patient is on the volumes second assist-control mode with a tidal volume of 500, rate of 32, FiO2 of 50% and a PEEP of 17. Again, these are the same ventilator settings as of yesterday. PH is at 7.31 with a pCO2 of 68 and pO2 of 60. Chest x-ray from today is not showing any major interval change. Orotracheal tube is in place. NG tube in place. There are bilateral pulmonary infiltrates and the findings are typical of ARDS. Meanwhile, the peak airway pressures at 36, static pressures are 34. These are the same numbers as of yesterday. The patient is a d-dimer of 9.6 with CRP of 7.6 and a LDH level of 1363. Currently is running a lower blood pressure with a systolic in the 90s. Lopressor has been held. Cardiac rhythm is sinus. IV fluids are running at disease an hour and the clarisse ent is not fluid balance is around 2.2 L positive over the past 24 hours. The patient is having a low-grade fever. His T-max was 100.2. Note that he is not covered with any antibiotics at this point in time. White cell count of 12.7. This of the blood work and electrolytes showed development of an acute kidney injury. Creatinine is up to 1.5 on today's evaluation and the rest of the blood work shows sodium 137, potassium of 5.1, LFTs are also showing some mild component of transaminitis. He is on enteral feeding for nutritional support and the patient is currently receiving Nepro 25 mL an hour. His urine output is in order of 40 cc hr 2020, the patient is not doing much in progress. His condition was stable yesterday and he continues to be sedated and paralyzed on today's evaluation where propofol is running at 65 mcg/kg per minute and the patient is also paralyzed on Nimbex at 2 mcg/kg per minute. Remains on the same ventilator setting with a tidal volume of 450, rate of 32, PEEP of 17 with a FiO2 of 50%. Chest x-ray findings and essentially unchanged over the past several days. The blood gases from today is showing a pH of 7.27 with a pCO2 of 81 and pO2 of 55. The peak airway pressure is around 35 and this static airway pressure is 33. The patient's hemodynamics is stable. He developed an acute kidney injury yesterday related to hypotension and he was given IV fluids and the creatinine is down to 1.2. His net fluid balance on today's evaluation is in the order of +2.2 L 4 02/15/2021 and +764 for 2020. He is currently on no pressors. Note that the patient had some fever since yesterday. The patient was pancultured. There is also still pending for now. No antibiotics was provided. The pro- calcitonin level came back quite elevated. The level is at 1.25. Meanwhile, he remains stable hemodynamically and his renal function is improving and the creatinine is down to 1.3. He is producing adequate amount of urine output for now. He is still running a low-grade fever White count at 13.6, inflammatory markers showed a d-dimer of 5.4 with a LDH level of 1230 and the CRP is at 6. He remains on steroids and the patient is receiving Decadron 6 mg IV every 12 hours. He did have an echocardiogram that showed impaired LV function with an ejection fraction of around 20-25%. He was trialed on dobutamine yesterday to augment his cardiac output and improve the renal failure. He did become tachycardic with dobutamine and this was discontinued. No other processes was given. He remains on enteral feeding for nutritional support and he is receiving Nepro at the rate of 27 mL an hour. Otherwise, no other major events occurring overnight. 02/18/2021, we are following this patient in the intensive care unit for a follow-up. Still sedated and paralyzed. An attempt to do the patient had paralytic holiday yesterday failed as the patient decompensated and the patient became hypoxic. Based on that, the patient placed back on a combination of propofol was still running at 65 mg/kg/m the Nimbex is running at 2 mcg/kg/h. As such, the patient remains sedated and paralyzed. Still on a mechanical ventilator. Essentially the same ventilator settings. Tidal volumes of 450 with a rate of 32 and a PEEP currently is at 17 with an FiO2 of 50%. The peak and static pressures remain elevated with a peak airway pressure of 34 ascending aortic pressure of 32. Blood gases from today showed a pH of 7.28 with a pCO2 of 78 and pO2 of 53. As such, oxygenation remains borderline and the patient is still undergoing permissive hypercapnia. Chest x-ray findings from today are essentially stable. Fluid balance was slightly positive and the patient was not receiving any pressors. In terms of inflammatory markers, the patient has an LDH of 1169 and a CRP of 1.1 and there is a slight rise in the creatinine which is up to 1.32. Note that his renal function continues to fluctuate. At one point he developed an acute kidney injury with a creatinine of 1.5. Otherwise, his white cell count is at 11.8 and the patient continues to have a lymphopenia. In terms of therapy, the patient remains on Decadron 6 mg IV twice a day. He remains on Lovenox 50 mg subcu every 12 hours. As mentioned earlier, he was diagnosed also having a cardiomyopathy with an ejection fraction of 20-25%. Enterofeeding is still with Nepro. The current rate is at 27 mL an hour and the patient is able to tolerate enteral feeding without any major issues. No diarrhea for now. fever. The urine culture that was done as part of a septic workup showed gram-negative bacillus and the patient is currently on IV cefepime. He was also given a dose of vancomycin for gram-positive cocci in his blood and is do not to be a coagulase-negative staph. His pro-calcitonin level was at 1.25 is currently coming down to 0.73 and essentially is improving. Sti ll running a low-grade fever with a T-max of 100.4. On today's evaluation of 02/19/2021, the patient remains intubated on a mechanical ventilator, sedated and paralyzed. The patient is a case of COVID-19 pneumonia with secondary ARDS. The patient is sedated and we're unable to cut down his sedation or paralytics over the past few days and the patient has not made a lot of progress. He remains sedated with propofol which is running at 55 mics respiratory/ minute and he is also on Nimbex at 2 mg/kg/h. The paralytic holiday was given and the patient failed due to oxygen desaturation. He remains on assist control mode with a tidal volume of 450 with a rate of 82 and the PEEP is at 17 and his FiO2 is at 60%. His chest x-ray from today is showing diffuse bilateral pulmonary infiltrates most on the lung bases. Extremities are quite diffuse. ET tube is in a good location. Orogastric tube is also in good location. The peak and static pressures today are 33 and 31 respectively and th e blood gases showing permissive hypercapnia with a pH of 7.23 and a pCO2 of 77 and pO2 of 78 and this was done and FiO2 of 60%. Unable to get this patient off paralytics because of a synchrony and oxygen desaturation. Hemodynamically stable on no pressors. His blood work shows an LDH of 898 which is up compared to yesterday and the CRP level is down to 1.6. He has developed an acute kidney injury in the creatinine is up to 2.5 with a mean of 18. The white cell count is at 12.4 and the patient continues to have a lymphopenia. The fluid balance over the past 24 hours has been +1 L and the patient is receiving IV fluids at 20 mL an hour and the patient is also on enteral feeding for nutritional support in the form of Nepro 27 mL an hour. He does have a E. coli urinary tract infection patient continues to be on IV cefepime. He is on no pressors for now. He is afebrile. No significant orotracheal secretions. No pressors. Patient was reevaluated today on 02/20/2021, remains intubated and mechanically ventilated. He is on assist control rate of 32 volume 450 FiO2 60% PEEP is 17. Patient is on permissive hypercapnia his ABG showed a pO2 of 69 pCO2 of 75 pH of 7.18. Peak airway pressure is 38 static pressure is 35. He is on propofol at 15 Nimbex at one and IV fluid 0.9 normal saline at 70 mL per hour. Patient is on enteral feeding in the form of Nepro 27 mL/h. Today I increased his tidal volume to 470 to improve his pCO2 and improve his pH. I started the patient on fentanyl. And his IV fluid was cut down to 50 mL/h. WBC count is 9.6 L. Hemoglobin is 12.9 d-dimer is 3.36 Potassium is 6. BUN is 99 creatinine is 4.15. LDH is 1032, C-reactive protein is 2.0. ALT is 94. Slightly elevated. Patient was reevaluated today on 02/21/2021, patient remains intubated and mechanically ventilated, his ventilator settings are assist control rate of 36 volume is 470 increased to 480 today. FiO2 is 60% PEEP of 17. His ABG showed a pO2 of 66 pCO2 of 84 and pH of 7.12. His peak airway pressures 40 to static pressure is 37. Patient remains on multiple drips including Nimbex at 1.2, he is off dopamine and Lasix, he is on fentanyl at 0.5, propofol at 40, and IV f luid 0.9 normal saline 20 mL per hour. Patient is on enteral feeding Nepro, is presently on hold. Patient had ultrafiltration last night, and he is undergoing hemodialysis today, this is the second treatment, the goal is to take 1 L off. Chest x-ray continues to show bilateral infiltrates, patient is not making a significant improvement over the last 24 hours, remains on relatively high FiO2 and the relatively high PEEP. Continues to have hypercapnia with a low pH of 7.12. Hence the thyroid volume was increased a bit today. ECG showed WBC 7.1 hemoglobin of 12.3. His d-dimer is 2.56. Potassium remains high and that's mostly because of his acidosis at 6.1. BUN is 98 creatinine is 4.90. Patient was reevaluated today on 02/22/2021, remains in the ICU, intubated and mechanically ventilated. Patient was on assist control rate of 36, tidal volume is 480, FiO2 60%, and PEEP of 17. ABG noted to have pO2 of 66 pCO2 of 75 pH of 7.153. His FiO2 was kept the same, we increased his respiratory rate up to 40, cut down his Lovenox to 30 mg subcu daily. Patient remained on propofol at 40 fentanyl at 0.5 Nimbex at 2 and Nepro at 40/40 IV fluid as at 20 mL per hour. I rounded on this patient, and finished my rounds, placed the orders on the chart, however as I was still in the ICU, patient underwent dialysis, and at the end of the dialysis, the patient lost his pulse, went pulseless, and he had pulseless electrical activity. I was called to the room and I ran the code. Patient r eceived CPR for less than 5 minutes. He received epinephrine 2. Bicarb 3. He was shocked 2, and he was placed on amiodarone bolus and amiodarone drip. Return of spontaneous circulation was noted within 5 minutes. Patient was placed back on mechanical ventilation, he was Ambu bag during the code. Place the patient on bicarb drip. And increase his FiO2 to 100%. And shortly after the code, left radial arterial line was placed. Patient was noted to be hemodynamically stable, did not require any pressors, he did receive 2 A of epinephrine only. And I placed him on amiodarone at the end of the code. And had a white complex tachycardia at the time when we were coding him. ABG during the code showed a pO2 of 44 pCO2 of 98 pH of 7.04 patient was reevaluated today on 02/23/2021, patient remains in the ICU, intubated and mechanically ventilated. He is on assist control rate of 45 v olume is 4 8000% FiO2 PEEP remains at 17. I did increase the PEEP to 18 today, and I switched the patient to oral amiodarone and start IV amiodarone. His ABG today showed a pO2 of 69 pCO2 of 81 pH of 7.15. Could not increased the PEEP any higher, as his peak airway pressure was significantly high, in the high 50s with a higher PEEP. And plateau pressure was also extremely high. In the high 50s and 40s. Patient remains on bicarb drip, remains on amiodarone drip, but I switch amiodarone to oral. He is on norepinephrine at 0.1 mcg/kg/m, patient is on propofol at 20 mcg/kg/m, Nimbex, and fentanyl at 0.5 mcg/kg/h. Remains on tube feeding, Nepro 40/40. Patient maintained a sinus rhythm through the night. Chest x-ray remained the same showing bilateral patchy infiltrates. CBC is relatively unremarkable, WBC count is 8.1 hemoglobin 9.6. The diarrhea is 4.58. BUN is 90 creatinine is 5.44. Asymmetric metabolic profile is relatively unremarkable. Patient was reevaluated today on 02/24/2021, patient remains in the ICU, intubated and mechanically ventilated. He is on assist control rate of 40 tidal volume is 485-85% PEEP remains at 18. ABG showed a pO2 of 58 pCO2 of 81 pH of 7.18. Peak airway pressure is 38, static pressure is 24. Chest x-ray is basically the same, continues to show bilateral patchy infiltrates. Patient remains on multiple drips including IV fluid at KVO, bicarbonate 100 mL/h, Nimbex S3 propofol at 20 norepinephrine at 0.12, and fentanyl at 0.05. Patient remains on enteral feeding using Nepro 36/36. Today I cut down his FiO2 to 75%, up to the ventilator settings exactly the same otherwise. Patient is supposed to have hemodialysis today. Family has been approached regarding CODE STATUS again, insists on full code. Although the patient had 2 cardiac arrests already while in the ICU. WBC count is 5.2 hemoglobin is 8.4. Electrolytes are normal renal profile is abnormal with a BUN of 118 creatinine 6.79. Patient is going to be dialyzed today. Patient remains sedated and paralyzed. And based on his chest x-ray findings, ABG findings, and his overall status, he is nowhere to be considered for any weaning except possibly cutting down the FiO2 from 85% to 80% or maybe 75% Patient was reevaluated today on 02/25/2021, remains intubated and mechanically ventilated. Had an episode of bradycardia yesterday associated with hypotensio n, patient responded to atropine and epinephrine injection. Had to be placed back up on 100% FiO2. His vent settings at present are assist control rate of 40 tidal volume is 480 FiO2 is 90% and PEEP of 18. ABG earlier on 75% FiO2 showed a pO2 of 48 pCO2 of 78 pH of 7.21. Presently the patient is on 90% FiO2. He is undergoing hemodialysis today. Presently on propofol at 20 norepinephrine at 0.1 fentanyl at 0.5 Nimbex S3 bicarb drip at 100 mL an hour. Patient is on enteral feeding using Nepro he will be receiving a unit of blood today for low hemoglobin. And we have increase his Pepcid to twice a day. Had some coffee-ground emesis through the nasogastric tube today. WBC count is 7.8 hemoglobin is 7.7. Electrolytes are normal potassium is 5.2 BUN is 105 creatinine 6.03. Chest x-ray is basically about the same, continues to show bilateral patchy infiltrates consistent with COVID-19 pneumonia. Not much different from his x-ray in the last few days. Patient was reevaluated today on 02/26/2021, remains in the ICU, sedated, intubated, paralyzed, patient remains on assist control rate of 40 total volume 480 FiO2 of 100% PEEP of 18. ABG this morning showed a pO2 of 59 pCO2 of 79 pH of 7.22. A shunt remains on dialysis, remains on enteral feeding in the form of Nepro 36/36. Remains on bicarb drip 3 A running at 50 MLS per hour, Nimbex propofol at 20 fentanyl at 0.5. Patient has shown staph aureus in the sputum. He had E. coli urinary tract infection, remains on Rocephin, over the last week, patient coded twice, and he had episodes of bradycardia responding to atropine and epinephrine injections. His x-ray is actually a bit worse compared to his initial x-ray. He was seen by nephrology today, and is scheduled to undergo dialysis today. Yesterday the patient received a unit of packed RBCs for low hemoglobin, his hemoglobin today is 8. WBC count is 7.1. Platelets are 174. Electrolytes are normal bicarb is 34 BUN is 97 creatinine is 5.36. Objective - Vital Signs Vital signs: Vital Signs Temp 99.0 F 02/26/21 08:00 Pulse 78 02/26/21 10:00 Resp 40 H 02/26/21 10:00 BP 114/57 02/26/21 10:00 Pulse Ox 91 L 02/26/21 10:00 Intake & Output 02/25/21 02/26/21 02/26/21 18:59 06:59 18:59 Intake Total 2106.137 1376 676 Output Total 1000 5 10 Balance 6467.100 3928 666 Weight 132.6 kg Intake: IV 1073 876 292 Dextrose 5% in Water 1, 900 600 200 000 ml @ 50 mls/hr IV . Q23H MARIO with Sodium Bicarb (1 Meq/ml) 150 ml Rx#:[id number] Pressure bag 33 36 12 Sodium Chloride 0.9% 1, 140 240 80 000 ml @ 20 mls/hr IV . Q24H MARIO Rx#:[id number] Intake, IV Titration 267.137 100 200 Amount Cisatracurium 200 mg In 177.225 200 Sodium Chloride 0.9% 180 ml @ 1 MCG/KG/MIN 5.987 mls/hr IV .Q24H MARIO Rx#: [id number] Norepinephrine 32 mg In 89.912 0 Sodium Chloride 0.9% 218 ml @ 0.05 MCG/KG/MIN 2. 759 mls/hr IV .Q24H MARIO Rx#:[id number] fentaNYL (PF). 1,000 mcg 100 In Sodium Chloride 0.9% 80 ml @ Per Protocol IV . Q0M MARIO Rx#:[id number] Tube Feeding 396 360 144 Blood Product 310 Rc As-1 Unit 310 [id number] Other 60 40 40 Output: Urine 0 5 10 Hemodialysis 1000 Other: Voiding Method Indwelling Catheter Indwelling Catheter ABP, PAP, CO, CI - Last Documented Arterial Blood Pressure 93/31 - Exam Physical Exam: 65-year-old black male intubated, mechanically ventilated, sedated, paralyzed.. Head: Atraumatic, normocephalic. Endotracheal tube and orogastric tubes are intact. HEENT:[Neck is supple.] [No neck masses.] [No thyromegaly.] [No JVD.] PERRLA, EOMI, nonicteric. Left subclavian central line is noted. Chest: Symmetrical chest expansion, crackles at the bases. Cardiac Exam: Distant S1 and S2, no S3 gallop, no murmur. Abdomen: Obese, [Soft, nontender, no megaly, no rebound, no guarding, normal bowel sounds.] Extremities: [No clubbing, 2+ bipedal edema, no cyanosis. Neurological Exam: Could not assess, patient is sedated and paralyzed. Skin: No rashes. Psychiatric: Could not assess. - Labs CBC & Chem 7: 02/26/21 05:11 02/26/21 05:11 Labs: Abnormal Lab Results - Last 24 Hours (Table) 02/25/21 02/25/21 02/25/21 Range/Units 10:06 11:46 16:52 RBC (4.30-5.90) m/uL Hgb (13.0-17.5) gm/dL Hct (39.0-53.0) % RDW (11.5-15.5) % Monocytes # (Manual) (0-1.0) k/uL Metamyelocytes # (Man) (0) k/uL Myelocytes # (Manual) (0) k/uL Nucleated RBCs (0-0) /100 WBC D-Dimer (<0.60) mg/L FEU ABG pH (7.35-7.45) ABG pCO2 (35-45) mmHg ABG pO2 (83-108) mmHg ABG HCO3 (21-25) mmol/L ABG Total CO2 (19-24) mmol/L ABG O2 Saturation (94-97) % Sodium 134 L (137-145) mmol/L Chloride 93 L (98-107) mmol/L Carbon Dioxide 35 H (22-30) mmol/L BUN 83 H (9-20) mg/dL Creatinine 4.72 H (0.66-1.25) mg/dL Glucose 116 H (74-99) mg/dL POC Glucose (mg/dL) 127 H (75-99) mg/dL Calcium 7.7 L (8.4-10.2) mg/dL Crossmatch See Detail 02/25/21 02/25/21 02/25/21 Range/Units 17:13 17:18 20:58 RBC (4.30-5.90) m/uL Hgb (13.0-17.5) gm/dL Hct (39.0-53.0) % RDW (11.5-15.5) % Monocytes # (Manual) (0-1.0) k/uL Metamyelocytes # (Man) (0) k/uL Myelocytes # (Manual) (0) k/uL Nucleated RBCs (0-0) /100 WBC D-Dimer (<0.60) mg/L FEU ABG pH (7.35-7.45) ABG pCO2 (35-45) mmHg ABG pO2 (83-108) mmHg ABG HCO3 (21-25) mmol/L ABG Total CO2 (19-24) mmol/L ABG O2 Saturation (94-97) % Sodium (137-145) mmol/L Chloride (98-107) mmol/L Carbon Dioxide (22-30) mmol/L BUN (9-20) mg/dL Creatinine (0.66-1.25) mg/dL Glucose (74-99) mg/dL POC Glucose (mg/dL) 118 H 241 H 106 H (75-99) mg/dL Calcium (8.4-10.2) mg/dL Crossmatch 02/26/21 02/26/21 02/26/21 Range/Units 00:33 04:45 05:11 RBC 2.42 L (4.30-5.90) m/uL Hgb 8.0 L (13.0-17.5) gm/dL Hct 22.9 L (39.0-53.0) % RDW 18.3 H (11.5-15.5) % Monocytes # (Manual) 1.42 H (0-1.0) k/uL Metamyelocytes # (Man) 0.14 H (0) k/uL Myelocytes # (Manual) 0.07 H (0) k/uL Nucleated RBCs 8 H (0-0) /100 WBC D-Dimer (<0.60) mg/L FEU ABG pH 7.22 L (7.35-7.45) ABG pCO2 79 H* (35-45) mmHg ABG pO2 59 L* (83-108) mmHg ABG HCO3 32 H (21-25) mmol/L ABG Total CO2 34 H (19-24) mmol/L ABG O2 Saturation 88.4 L (94-97) % Sodium (137-145) mmol/L Chloride (98-107) mmol/L Carbon Dioxide (22-30) mmol/L BUN (9-20) mg/dL Creatinine (0.66-1.25) mg/dL Glucose (74-99) mg/dL POC Glucose (mg/dL) 131 H (75-99) mg/dL Calcium (8.4-10.2) mg/dL Crossmatch 02/26/21 02/26/21 02/26/21 Range/Units 05:11 05:11 05:19 RBC (4.30-5.90) m/uL Hgb (13.0-17.5) gm/dL Hct (39.0-53.0) % RDW (11.5-15.5) % Monocytes # (Manual) (0-1.0) k/uL Metamyelocytes # (Man) (0) k/uL Myelocytes # (Manual) (0) k/uL Nucleated RBCs (0-0) /100 WBC D-Dimer 3.60 H (<0.60) mg/L FEU ABG pH (7.35-7.45) ABG pCO2 (35-45) mmHg ABG pO2 (83-108) mmHg ABG HCO3 (21-25) mmol/L ABG Total CO2 (19-24) mmol/L ABG O2 Saturation (94-97) % Sodium 135 L (137-145) mmol/L Chloride 93 L (98-107) mmol/L Carbon Dioxide 34 H (22-30) mmol/L BUN 97 H (9-20) mg/dL Creatinine 5.36 H (0.66-1.25) mg/dL Glucose 116 H (74-99) mg/dL POC Glucose (mg/dL) 128 H (75-99) mg/dL Calcium 7.8 L (8.4-10.2) mg/dL Crossmatch 02/26/21 Range/Units 07:40 RBC (4.30-5.90) m/uL Hgb (13.0-17.5) gm/dL Hct (39.0-53.0) % RDW (11.5-15.5) % Monocytes # (Manual) (0-1.0) k/uL Metamyelocytes # (Man) (0) k/uL Myelocytes # (Manual) (0) k/uL Nucleated RBCs (0-0) /100 WBC D-Dimer (<0.60) mg/L FEU ABG pH (7.35-7.45) ABG pCO2 (35-45) mmHg ABG pO2 (83-108) mmHg ABG HCO3 (21-25) mmol/L ABG Total CO2 (19-24) mmol/L ABG O2 Saturation (94-97) % Sodium (137-145) mmol/L Chloride (98-107) mmol/L Carbon Dioxide (22-30) mmol/L BUN (9-20) mg/dL Creatinine (0.66-1.25) mg/dL Glucose (74-99) mg/dL POC Glucose (mg/dL) 123 H (75-99) mg/dL Calcium (8.4-10.2) mg/dL Crossmatch Assessment and Plan Assessment: Impression: Acute hypoxic failure secondary to COVID-19 pneumonia and ARDS. Patient was initially admitted on 02/09/2021. Patient has been intubated for almost more than 2 weeks, family is still requesting full CODE STATUS although I believe the patient has extremely minimal chance if any for recovering from this illness. Decision will have to be made regarding tracheostomy although were almost at a situation which is basically medical futility. Acute kidney injury and renal failure requiring hemodialysis. Elevated inflammatory markers secondary to above Troponin leak. Former smoker. Elevated liver enzymes secondary to COVID-19 pneumonia and infection Severe cardiomyopathy and LV dysfunction with ejection fraction of 20%. Cardiac arrest requiring CPR 2. Supraventricular tachycardia post cardiac arrest. Presently on amiodarone via nasogastric tube. 200 mg twice a day. E coli urinary tract infection, remains on Rocephin. MSSA in the sputum, no need for vancomycin, continue Rocephin. Coffee ground emesis and upper GI blood loss, most likely secondary to erosive gastritis, patient remains on Pepcid 20 mg twice a day. Patient required 1 unit of packed RBCs yesterday. Recommendation: Continue ventilatory support. No major changes noted in the vent settings, we will continue to titrate FiO2 down as tolerated maintaining O2 saturation above 89%. Continue Decadron at 6 mg IV push twice a day. Continue Lovenox at 30 mg subcu daily. Continue sedation and paralysis. Continue antibiotics/Rocephin. Continue nutritional support. Continue the vitamin cocktail. Patient received convalescent plasma and toci Continue hemodialysis. will be hemodialyzed today as per nephrology. Continue amiodarone 200 mg twice a day Continue GI and DVT prophylaxis. Remains on Pepcid twice a day. Patient remains critically ill, prognosis is very poor, Critical care time is over 30 minutes. Time with Patient: Greater than 30
[2021-02-26 11:30] LABS: Glucose,Whole Blood 139 mg/dL (75-99)
[2021-02-26] MEDS: fentaNYL (PF). 1,000 MCG in SODIUM CHLORIDE 0.9% 80 ML IV SCH (17:18)
[2021-02-26 17:26] LABS: Glucose,Whole Blood 117 mg/dL (75-99)
[2021-02-26] MEDS: DEXTROSE 5% IN WATER 1,000 ML with SODIUM BICARB (1 MEQ/ML) 150 ML IV SCH (18:35)
[2021-02-26 23:53] LABS: Glucose,Whole Blood 122 mg/dL (75-99)
[2021-02-27] MEDS: INSULIN ASPART (NovoLOG) 100 UNIT/ML VIAL SQ SCH ×5 (00:13→23:51)
--- NOTE | 2021-02-27 00:40 | P.PN ---
Subjective Progress Note Date: 02/26/21 Principal diagnosis: Acute bilateral Covid pneumonia Acute hypoxic respiratory failure secondary to above. on mechanical ventilator This is a pleasant 65 years old male with no significant past medical history who presents because of one-week history of dyspnea associated with high fever at 101.3 at home. Associated with coughing. He feels generally weak but no significant chest pain. Patient dyspnea was getting more worse and he was not feeling well so family brought him to the hospital. His symptoms started about 2 weeks Patient is poor historian and is oxygen saturation was troponin while he was on high flow nasal cannula and he has to be placed on BiPAP and sent to the ICU from emergency room Patient is ex-smoker, he quit a few months ago. Used to smoke 2 packs per day. Patient is tachypneic with a breathing rate of 30, he is saturating any to on 60 L/m of oxygen via high flow cannula. A febrile. CBC, and BMP are unremarkable. Liver enzymes slightly elevated with AST 100 and ALT 86 and normal bilirubin of 0.7. D-dimer is elevated at 5.7. Elevated troponin 0.03, 0.06, 0.06 Chronic varus detected CTA of the chest: No evidence of PE. Extensive bilateral pneumonia, emphysema EKG showing sinus tachycardia at 107 with the bundle branch block and QTC 523 Chest x-ray: Bilateral infiltrates Ultrasound of the lower extremities is negative for DVT on both sides In ED he was started on Lovenox, normal saline at 75 mL/h, one-time dose of tocilizumab per pulmonary team , vitamin C, zinc and vitamin D. Patient has been evaluated by pulmonary service, he was started on BiPAP and admitted to the ICU 02/11/2021 Patient remains in the ICU, monitored closely for his hypoxia, he needs BiPAP most of the time of continuously. Has increased inflammatory markers with ferritin 1519, LDH 2339 and selective 1438. D-dimer is elevated at 5.7 and he is placed on therapeutic dose of Lovenox. Chest x-ray showing bilateral infiltrate Remains on dexamethasone and vitamin cocktail for Covid, he also received 1 dose of tocilizumab and convalescent plasma Also he is on metoprolol and Lovenox 50 mg twice a day 02/12/2021 Patient seen and examined in the ICU for Covid pneumonia, this morning his respiratory status deteriorated and he had to be intubated and placed on mechanical ventilation, also blood pressure was troponin even with boluses of normal saline and he has to be placed on Levophed at 0.05. Vent setting showing PEEP 10, respiratory rate 30, dental: 450 and FiO2 is 100%. Dictated hydrogenase almost doubled to 4124 and C-reactive protein is high at 20. D-dimer more than 34. Liver enzymes slightly elevated. She remains on metoprolol 25 mg, Lovenox 50 mg dexamethasone, vitamin C, D and zinc. Also he is started on small dose of Levophed. And metoprolol 02/14/2021 Patient is currently in MICU and remains intubated. Patient was intubated on 02/12/2021. Currently on mechanical ventilator and is on sedation. Chest x-ray showed COPD with borderline heart size. Diffuse interstitial opacities and more confluent bibasilar airspace disease, right greater than left, (without significant change. Laboratory data showed D-dimer 24.99, potassium 5.2, bicarb 34 BUN 24 creatinine 0.79 calcium 8.1 ferritin 1008.5 AST 91 ALT 208 LDH 2000 CPK 194, CRP 14.0. Patient is being continued on dexamethasone 6 mg IV daily, Lovenox 50 mg subcu twice daily and multivitamins. Pulmonary is on board. Patient is tachypneic. Afebrile. 02/15/2021 Patient is currently in MICU remains intubated and also on sedation and paralyzed. Assist control 500, respiratory 32 and PEEP of 17 and FiO2 30%. Chest x-ray showed mild improvement of diffuse increased lung markings. Patient is tachypneic. Blood pressure is stable. Patient is afebrile. Laboratory data showed diabetes 11.7 hemoglobin 16.1 MCV 101.1 and platelets 178 ABG showed pH of 7.3 PCO2 73 and PO2 53 Sodium 137 potassium 5.6 bicarb is 34 BUN 34 and creatinine 0.9 AST is 57 ALT from 58 LDH 1693 CRP 10.3 Patient is on enteral feeding. 02/16/2021 Patient is currently MICU on mechanical L also on sedation and paralyzed. Currently on assist control 100 PEEP of 17 and FiO2 50%. ABG showed pH of 7.31, PCO2 68 and PO2 60 Chest x-ray showed bibasilar infiltrates. Findings are improving. Laboratory showed WBC 12.7 hemoglobin 15.3 and platelets 167 D-dimer is 9.64 sodium 137 potassium 5.1 bicarb is 34 BUN 59 creatinine 1.52 blood sugar is 150 AST 61 ALT 144 LDH 1363 total protein 5.9 albumin 3.1 and procalcitonin 1.25 Patient is being continued on dexamethasone, Lovenox twice daily, multivitamins. Critical care team is on board. 02/17/2021 Patient currently in the MICU and remains on mechanical ventilator. Sedated and paralyzed. Assist-control 450 respiratory rate 32 PEEP of 17 and FiO2 50%. Chest x-ray showed COPD and continued bibasilar airspace disease and background increase in interstitial opacity. Laboratory data showed WBC 13.6 hemoglobin 14.1 and platelets 162 D-dimer is 5.41 pH of 7.27, PCO2 82 and PO2 56 Sodium 138 potassium 5.5 BUN 59 and creatinine 1.21 AST 65 ALT 143 LDH 1230 CRP 6.5 and pro calcitonin level of 0.73 Patient was started on cefepime and vancomycin. 02/18/2021 Patient is currently in the MICU. Currently sedated and paralyzed. Patient became hypoxic and decompensated with sedation holiday and was put back on sedation and currently paralyzed. Assist-control 450 PEEP of 17 and FiO2 50%. Chest x-ray showed stable findings. T-max 100.4 Laboratory data showed LDH 1169, CRP 1.1 and the creatinine went up to 1.3 to. WBC 11.8. Otherwise patient is being continued on Decadron 6 mg IV every 12 and Lovenox 50 mg every 12. Patient has been afebrile. Urine culture showed gram-negative bacilli and is currently getting cefepime. Blood cultures grew gram-positive cocci and is on vancomycin until final is nothing blood cultures. Pulmonary is on board. 02/19/2021 Patient is currently on mechanical ventilator and paralyzed. Assist-control 450, PEEP of 17 and FiO2 60%. Chest x-ray showed diffuse bilateral pulmonary infiltrates mostly in the lung bases. Laboratory data showed WBC 12.4 hemoglobin 13.1 and platelets 86 D-dimer 4.03 Potassium 5.8, BUN 80 and creatinine 2.5, pro calcitonin 0.88, LDH 898, CRP 1.6 and alk phos 108 at length patient is being continued on DEXA was on, Lovenox twice a day and antibiotics in the form of cefepime for E. coli urinary tract infection. Follow-up repeat blood cultures. Vancomycin has been discontinued.. Patient was seen by nephrology and added Midodrin 3 times a day. Critical care team and is on board. 02/20/2021 Patient is sedated and intubated and paralyzed. Remains in ICU and on [facility] anical ventilator. Assist-control 450, PEEP of 17 and FiO2 60%. On IV hydration with normal saline 70 mL per hour. Patient is tolerating enteral feeding. Afebrile. Chest x-ray showed COPD and borderline heart size. Interstitial changes and minimal lung airspace disease no significant change. Laboratory data showed WBC 9.6, hemoglobin 12.9 platelets 168 Sodium 139 potassium 6.1, BUN 99 and creatinine 4.15, ferritin 479, AST 31 ALT 94 alk phos 65 LDH 1032 and CRP 2.0 Patient be continued on cefepime. Nephrology is on board. IV hydration with normal saline. Continued on dexamethasone and Lovenox. Prognosis guarded in this time. 02/21/2021 Patient is currently in MICU intubated and sedated. Assist-control 480 and FiO2 60% and PEEP of 17. Peak pressures are still high around 37. Chest x-ray showed COPD and stable bilateral airspace disease especially in the periphery and lower lungs. Patient being continued on dexamethasone IV twice daily and Lovenox. Nephrology is on board due to acute kidney injury and ATN. Patient was started on hemodialysis last night. And again today. Laboratory data showed potassium 6.1, BUN 98 and creatinine 4.9. WBC 9.1 and hemoglobin 12.3 and platelets 165 urine culture showed E. coli and blood cultures told coagulase-negative staph aureus. Critical care team is following closely. 02/22/2021 Patient remained mechanical ventilator and on sedation. Assist-control 480 FiO2 60% and PEEP of 17. ABG showed pH of 7.15, PCO2 75-PO2 67 chest x-ray showed stable portable chest. Laboratory data showed potassium 6.0, BUN 91 and creatinine 5.41 patient was resting hemodialysis today. Patient went into cardiac arrest and CODE BLUE was initiated with return of spontaneous circulation.Was started on amiodarone drip. Laboratory showed sodium 138 potassium 6.0 BUN 91 and creatinine 5.41. Critical care team and nephrology is on board. Prognosis guarded at this time. 02/23/2021 Patient is currently [id number]. Remains intubated. Assist-control 450 with FiO2 80% and PEEP of 17. ABG showed pCO2 81 and pH of 7.15 and pO2 69. Patient remains on bicarb and amiodarone drip. Amiodarone will be changed to by mouth today. Otherwise patient is sedated and paralyzed. Next and chest x-ray showed right lateral patchy infiltrates. Laboratory data showed diabetes 8.1 hemoglobin 9.6 and BUN 19 creatinine 5.44. Pulmonary, nephrology is following. 02/24/2021 Patient is currently in the MICU. Intubated and on mechanical ventilation. Se dated and paralyzed. Assist-control with PEEP of 18 and 89% FiO2. PKD pressure still high at 38. Chest x-ray showed bilateral patchy infiltrates. Next and patient is being continued on bicarb drip and oral amiodarone. Also on Nimbex drip and norepinephrine. Nephrology is on board and is planning for hemodialysis today. Family wants him to be full code. Laboratory data showed BUN 118 and creatinine 6.79. Prognosis is guarded at this time. Nephrology and critical care team on board. 02/25/2021 Patient is currently on mechanical ventilator. Sedated and paralyzed. Assist- control 400, FiO2 90% and PEEP of 18. Currently on September 09 drip and bicarb drip and norepinephrine at low-dose. ABG showed pH 7.21, pCO2 78 and pO2 48. Patient is being dialyzed today. Nephrology is on board. Chest x-ray showed findings consistent with patient's history of pneumonia. Correlate for ARDS, edema. Laboratory data showed sodium 136 potassium 5.2 bicarb 32 BUN 105 and creatinine was 6.03, calcium 7.7 02/26/2021 Patient is currently in MICU and on medical ventilator. Sedated and paralyzed. Assist-control 480 with FiO2 100% and PEEP of 18. Patient is being continued on bicarb drip and Nimbex drip. Chest x-ray showed stable exam. Correlate for pneumonia. Patient is scheduled for hemodialysis today. Sputum culture showed staph aureus species and Dianne albicans. Urine culture showed E. coli. Patient is being continued on antibiotics in the form of ceftriaxone. Laboratory data showed WBC 7.1 hemoglobin 8.0 platelets 174 sodium 135 potassium 5.0 chloride 93 BUN 97 creatinine 5.36 and calcium 7.8. Current medications reviewed. Active Medications Generic Name Dose Route Start Last Admin Trade Name Freq PRN Reason Stop Dose Admin Acetaminophen 650 mg 02/09/21 22:58 02/17/21 21:32 Acetaminophen Tab 325 Mg Tab PO 650 mg Q6HR PRN Administration Mild Pain or Fever > 100.5 Amiodarone HCl 200 mg 02/23/21 09:00 02/26/21 20:35 Amiodarone 200 Mg Tab PO 200 mg BID MARIO Administration Ascorbic Acid 500 mg 02/10/21 09:00 02/26/21 08:34 Ascorbic Acid 500 Mg Tab PO 500 mg DAILY MARIO Administration Aspirin 81 mg 02/10/21 10:15 02/26/21 10:30 Aspirin 81 Mg PO Not Given DAILY MARIO Chlorhexidine Gluconate 15 ml 02/12/21 09:00 02/26/21 20:35 Chlorhexidine Gluconate 15 Ml Cup MUCOUS MEM 15 ml BID MARIO Administration Cholecalciferol 100 mcg 02/10/21 09:00 02/26/21 08:35 Cholecalciferol 25 Mcg (1000 Iu) Tablet PO 100 mcg DAILY MARIO Administration Dexamethasone Sodium Phosphate 6 mg 02/14/21 09:00 02/26/21 20:35 Dexamethasone Sod Phosphate 10 Mg/Ml 1 Ml Vial IV 6 mg BID MARIO Administration Enoxaparin Sodium 30 mg 02/23/21 09:00 02/26/21 08:48 Enoxaparin 30 Mg/0.3 Ml Syringe SQ 30 mg DAILY MARIO Administration Famotidine 20 mg 02/25/21 21:00 02/26/21 20:35 Famotidine 20 Mg/2 Ml Vial IV 20 mg Q12HR MARIO Administration Cisatracurium Besylate 200 mg/ 200 mls @ 5.987 mls/hr 02/12/21 06:00 02/26/21 17:36 Sodium Chloride IV 5 mcg/kg/min .Q24H MARIO 29.937 mls/hr Administration Protocol 1 MCG/KG/MIN Propofol 1,000 mg/ IV Solution 100 mls @ 0 mls/hr 02/12/21 06:30 02/26/21 17: 54 IV 20 mcg/kg/min .Q0M MARIO 14.124 mls/hr Administration Protocol Titrate Sodium Chloride 1,000 mls @ 20 mls/hr 02/19/21 07:00 02/26/21 04:37 Saline 0.9% IV 20 mls/hr .Q24H MARIO Administration Fentanyl Citrate 1,000 mcg/ 100 mls @ 0 mls/hr 02/20/21 08:15 02/26/21 17:18 Sodium Chloride IV 0.5 mcg/kg/hr .Q0M MARIO 5.435 mls/hr Administration Protocol Per Protocol Ceftriaxone Sodium 1 gm/ 50 mls @ 100 mls/hr 02/21/21 09:00 02/26/21 08:48 Sodium Chloride IVPB 100 mls/hr Q24HR MARIO Administration Sodium Bicarbonate 150 ml/ 1,150 mls @ 50 mls/hr 02/22/21 11:00 02/26/21 18:35 Dextrose/Water IV 50 mls/hr .Q23H MARIO Administration Norepinephrine Bitartrate 32 250 mls @ 2.759 mls/hr 02/22/21 11:15 02/26/21 01:25 mg/ Sodium Chloride IV 0.05 mcg/kg/min .Q24H MARIO 2.759 mls/hr Titration Protocol 0.05 MCG/KG/MIN Insulin Aspart 0 unit 02/23/21 18:00 02/27/21 00:13 Insulin Aspart (Novolog) 100 Unit/Ml Vial SQ Not Given Q6HR MARIO Protocol Metoprolol Tartrate 25 mg 02/10/21 10:15 02/26/21 20:35 Metoprolol Tartrate 25 Mg Tab PO 25 mg BID MARIO Administration Midodrine 10 mg 02/24/21 14:00 02/26/21 17:53 Midodrine 5 Mg Tab PO 10 mg 0600,1000,1400,1800 MARIO Administration Naloxone HCl 0.2 mg 02/09/21 22:58 Naloxone 0.4 Mg/Ml 1 Ml Vial IV Q2M PRN Opioid Reversal Zinc Sulfate 220 mg 02/10/21 09:00 02/26/21 08:34 Zinc Sulfate 220 Mg Cap PO 220 mg DAILY MARIO Administration Objective - Vital Signs Vital signs: Vital Signs Temp 99.0 F 02/26/21 08:00 Pulse 78 02/26/21 10:00 Resp 40 H 02/26/21 10:00 BP 114/57 02/26/21 10:00 Pulse Ox 91 L 02/26/21 10:00 Intake & Output 02/25/21 02/26/21 02/26/21 18:59 06:59 18:59 Intake Total 2106.137 1376 676 Output Total 1000 5 10 Balance 8711.216 5925 666 Weight 132.6 kg Intake: IV 1073 876 292 Dextrose 5% in Water 1, 900 600 200 000 ml @ 50 mls/hr IV . Q23H MARIO with Sodium Bicarb (1 Meq/ml) 150 ml Rx#:[id number] Pressure bag 33 36 12 Sodium Chloride 0.9% 1, 140 240 80 000 ml @ 20 mls/hr IV . Q24H MARIO Rx#:[id number] Intake, IV Titration 267.137 100 200 Amount Cisatracurium 200 mg In 177.225 200 Sodium Chloride 0.9% 180 ml @ 1 MCG/KG/MIN 5.987 mls/hr IV .Q24H [facility] Rx#: [id number] Norepinephrine 32 mg In 89.912 0 Sodium Chloride 0.9% 218 ml @ 0.05 MCG/KG/MIN 2. 759 mls/hr IV .Q24H [facility] Rx#:[id number] fentaNYL (PF). 1,000 mcg 100 In Sodium Chloride 0.9% 80 ml @ Per Protocol IV . Q0M [facility] Rx#:[id number] Tube Feeding 396 360 144 Blood Product 310 Rc As-1 Unit 310 [id number] Other 60 40 40 Output: Urine 0 5 10 Hemodialysis 1000 Other: Voiding Method Indwelling Catheter Indwelling Catheter ABP, PAP, CO, CI - Last Documented Arterial Blood Pressure 93/31 - Exam - Exam -GENERAL: The patient is intubated and sedated . HEENT: Pupils are round and equally reacting to light. No scleral icterus. No conjunctival pallor. Normocephalic, atraumatic. No thyromegaly. CARDIOVASCULAR: S1 and S2 present. No murmurs, rubs, or gallops. PULMONARY: Chest is clear to auscultation, no wheezing or crackles. ABDOMEN: Soft, nontender, nondistended, normoactive bowel sounds. No palpable organomegaly. MUSCULOSKELETAL: No joint swelling or deformity. EXTREMITIES: No cyanosis, clubbing, or pedal edema. NEUROLOGICAL: Gross neurological examination did not reveal any focal deficits. SKIN: No rashes. no petechiae. - Labs CBC & Chem 7: 02/26/21 05:11 02/26/21 05:11 Labs: Abnormal Lab Results - Last 24 Hours (Table) 02/25/21 02/25/21 02/25/21 Range/Units 10:06 11:46 16:52 RBC (4.30-5.90) m/uL Hgb (13.0-17.5) gm/dL Hct (39.0-53.0) % RDW (11.5-15.5) % Monocytes # (Manual) (0-1.0) k/uL Metamyelocytes # (Man) (0) k/uL Myelocytes # (Manual) (0) k/uL Nucleated RBCs (0-0) /100 WBC D-Dimer (<0.60) mg/L FEU ABG pH (7.35-7.45) ABG pCO2 (35-45) mmHg ABG pO2 (83-108) mmHg ABG HCO3 (21-25) mmol/L ABG Total CO2 (19-24) mmol/L ABG O2 Saturation (94-97) % Sodium 134 L (137-145) mmol/L Chloride 93 L (98-107) mmol/L Carbon Dioxide 35 H (22-30) mmol/L BUN 83 H (9-20) mg/dL Creatinine 4.72 H (0.66-1.25) mg/dL Glucose 116 H (74-99) mg/dL POC Glucose (mg/dL) 127 H (75-99) mg/dL Calcium 7.7 L (8.4-10.2) mg/dL Crossmatch See Detail 02/25/21 02/25/21 02/25/21 Range/Units 17:13 17:18 20:58 RBC (4.30-5.90) m/uL Hgb (13.0-17.5) gm/dL Hct (39.0-53.0) % RDW (11.5-15.5) % Monocytes # (Manual) (0-1.0) k/uL Metamyelocytes # (Man) (0) k/uL Myelocytes # (Manual) (0) k/uL Nucleated RBCs (0-0) /100 WBC D-Dimer (<0.60) mg/L FEU ABG pH (7.35-7.45) ABG pCO2 (35-45) mmHg ABG pO2 (83-108) mmHg ABG HCO3 (21-25) mmol/L ABG Total CO2 (19-24) mmol/L ABG O2 Saturation (94-97) % Sodium (137-145) mmol/L Chloride (98-107) mmol/L Carbon Dioxide (22-30) mmol/L BUN (9-20) mg/dL Creatinine (0.66-1.25) mg/dL Glucose (74-99) mg/dL POC Glucose (mg/dL) 118 H 241 H 106 H (75-99) mg/dL Calcium (8.4-10.2) mg/dL Crossmatch 02/26/21 02/26/21 02/26/21 Range/Units 00:33 04:45 05:11 RBC 2.42 L (4.30-5.90) m/uL Hgb 8.0 L (13.0-17.5) gm/dL Hct 22.9 L (39.0-53.0) % RDW 18.3 H (11.5-15.5) % Monocytes # (Manual) 1.42 H (0-1.0) k/uL Metamyelocytes # (Man) 0.14 H (0) k/uL Myelocytes # (Manual) 0.07 H (0) k/uL Nucleated RBCs 8 H (0-0) /100 WBC D-Dimer (<0.60) mg/L FEU ABG pH 7.22 L (7.35-7.45) ABG pCO2 79 H* (35-45) mmHg ABG pO2 59 L* (83-108) mmHg ABG HCO3 32 H (21-25) mmol/L ABG Total CO2 34 H (19-24) mmol/L ABG O2 Saturation 88.4 L (94-97) % Sodium (137-145) mmol/L Chloride (98-107) mmol/L Carbon Dioxide (22-30) mmol/L BUN (9-20) mg/dL Creatinine (0.66-1.25) mg/dL Glucose (74-99) mg/dL POC Glucose (mg/dL) 131 H (75-99) mg/dL Calcium (8.4-10.2) mg/dL Crossmatch 02/26/21 02/26/21 02/26/21 Range/Units 05:11 05:11 05:19 RBC (4.30-5.90) m/uL Hgb (13.0-17.5) gm/dL Hct (39.0-53.0) % RDW (11.5-15.5) % Monocytes # (Manual) (0-1.0) k/uL Metamyelocytes # (Man) (0) k/uL Myelocytes # (Manual) (0) k/uL Nucleated RBCs (0-0) /100 WBC D-Dimer 3.60 H (<0.60) mg/L FEU ABG pH (7.35-7.45) ABG pCO2 (35-45) mmHg ABG pO2 (83-108) mmHg ABG HCO3 (21-25) mmol/L ABG Total CO2 (19-24) mmol/L ABG O2 Saturation (94-97) % Sodium 135 L (137-145) mmol/L Chloride 93 L (98-107) mmol/L Carbon Dioxide 34 H (22-30) mmol/L BUN 97 H (9-20) mg/dL Creatinine 5.36 H (0.66-1.25) mg/dL Glucose 116 H (74-99) mg/dL POC Glucose (mg/dL) 128 H (75-99) mg/dL Calcium 7.8 L (8.4-10.2) mg/dL Crossmatch 02/26/21 Range/Units 07:40 RBC (4.30-5.90) m/uL Hgb (13.0-17.5) gm/dL Hct (39.0-53.0) % RDW (11.5-15.5) % Monocytes # (Manual) (0-1.0) k/uL Metamyelocytes # (Man) (0) k/uL Myelocytes # (Manual) (0) k/uL Nucleated RBCs (0-0) /100 WBC D-Dimer (<0.60) mg/L FEU ABG pH (7.35-7.45) ABG pCO2 (35-45) mmHg ABG pO2 (83-108) mmHg ABG HCO3 (21-25) mmol/L ABG Total CO2 (19-24) mmol/L ABG O2 Saturation (94-97) % Sodium (137-145) mmol/L Chloride (98-107) mmol/L Carbon Dioxide (22-30) mmol/L BUN (9-20) mg/dL Creatinine (0.66-1.25) mg/dL Glucose (74-99) mg/dL POC Glucose (mg/dL) 123 H (75-99) mg/dL Calcium (8.4-10.2) mg/dL Crossmatch Assessment and Plan Assessment: Acute bilateral Covid pneumonia ARDS / Acute hypoxic respiratory failure secondary to above. on mechanical ventilator, sedated and paralyzed. Elevated inflammatory markers E. coli urinary tract infection Gram-positive cocci bacteremia. Coagulase-negative staph aureus. Acute kidney injury. due to ATN. Started hemodialysis on 02/21/2020 Acute cardiac arrest 2 hours into third hemodialysis status post CPR and return of spontaneous circulation. Hyperkalemia secondary to acute kidney injury Metabolic acidosis Severe cardiomyopathy EF: 20-25% Elevated troponin, secondary to Covid infection. Possible non-ST elevated UT. Elevated d-dimer, with no evidence of PE on CTA of the chest Mildly elevated liver enzymes, secondary to covid Elevated lactic acid, came back to normal Emphysema Plan: This is a pleasant 65 years old male who presents with Covid, hypoxic resp iratory failure and elevated troponin level. Patient received Tocilizumab and 1 unit of convalescent plasma. Patient does not make much improvement for the last few days. Continue with vitamin C, vitamin D and zinc. Continue with steroids and lovenox BID Due to elevated D-dimer level.. Pulmonary and cardiology is following. Continue with antibiotics in the form of cefepime. Changed to ceftriaxone Patient was initiated on hemodialysis due to acute kidney injury and hyperkalemia. Labs and medication were reviewed.. Monitor lytes and vitals. DVT and GI prophylaxis. Further recommendations depends on the clinical course of the patient DVT prophylaxis: Subcutaneous Lovenox GI Prophylaxis: Pepcid PT/OT: Pending Prognosis is guarded Time with Patient: Greater than 30
[2021-02-27] MEDS: SODIUM CHLORIDE 0.9% 1,000 ML IV SCH ×2 (03:37→23:51)
[2021-02-27] MEDS: MIDODRINE 5 MG TAB PO SCH ×4 (05:12→18:05)
[2021-02-27 05:23] LABS: ABG Base Excess 2.3 mmol/L; ABG HCO3 30 mmol/L (21-25); ABG PH 7.21 (7.35-7.45); ABG PO2 72 mmHg (83-108); ABG TCO2 32 mmol/L (19-24); Allen Test Performed? Yes
[2021-02-27 05:43] LABS: ABG PCO2 75 mmHg (35-45)
[2021-02-27 06:01] LABS: Calcium 8.1 mg/dL (8.4-10.2); Potassium 4.9 mmol/L (3.5-5.1)
[2021-02-27 06:05] LABS: Anisocytosis Slight; HCT 22.5 % (39.0-53.0); HGB 7.2 gm/dL (13.0-17.5); Hypochromasia Slight; MCH 30.8 pg (25.0-35.0); MCHC 32.1 g/dL (31.0-37.0); MCV 96.2 fL (80.0-100.0); Macrocytosis Slight; Mean Platelet Volume 9.2; Platelet Count 196 k/uL (150-450); Poikilocytosis Moderate; RBC 2.34 m/uL (4.30-5.90); RDW 18.7 % (11.5-15.5)
[2021-02-27] MEDS: CISATRACURIUM 200 MG in SODIUM CHLORIDE 0.9% 180 ML IV SCH ×3 (06:45→18:58)
[2021-02-27 06:53] LABS: Band Neutrophils % 9 %; Lymphocytes # (M) 2.08 k/uL (1.0-4.8); Monocytes # (M) 1.07 k/uL (0-1.0); Myelocytes # (M) 0.07 k/uL (0); Myelocytes % 1 %; Neutrophils % (M) 43 %; Nucleated Red Blood Cells 18 /100 WBC (0-0); Total Cells Counted 100; WBC 6.7 k/uL (3.8-10.6)
[2021-02-27 06:54] LABS: Polychromasia Present
[2021-02-27 06:55] LABS: Basophilic Stippling Present
--- NOTE | 2021-02-27 07:13 | XR ---
EXAMINATION TYPE: XR chest 1V portable DATE OF EXAM: 02/27/2021 COMPARISON: 02/26/2021 HISTORY: SOB, Follow Up FINDINGS: Indwelling tubes and catheters are unchanged. Scattered airspace and interstitial infiltrates persist without significant change. Stable appearance of the cardio-mediastinal structures at this time. Pleural effusion unchanged. IMPRESSION: 1. Scattered airspace and interstitial infiltrates persist without significant change. Clinical maci elation and follow up until resolution is recommended.
[2021-02-27] MEDS: ASPIRIN 81 MG PO SCH (08:09)
[2021-02-27] MEDS: DEXAMETHASONE SOD PHOSPHATE 10 MG/ML 1 ML VIAL IV SCH (08:09)
[2021-02-27] MEDS: AMIODARONE 200 MG TAB PO SCH ×2 (08:09→20:58)
[2021-02-27] MEDS: METOPROLOL TARTRATE 25 MG TAB PO SCH ×2 (08:09→20:58)
[2021-02-27] MEDS: CHLORHEXIDINE GLUCONATE 15 ML CUP MUCOUS MEM SCH ×2 (08:10→20:58)
[2021-02-27] MEDS: ASCORBIC ACID 500 MG TAB PO SCH (08:10)
[2021-02-27] MEDS: ZINC SULFATE 220 MG CAP PO SCH (08:10)
[2021-02-27] MEDS: CHOLECALCIFEROL 25 MCG (1000 IU) TABLET PO SCH (08:10)
[2021-02-27] MEDS: FAMOTIDINE 20 MG/2 ML VIAL IV SCH ×2 (08:10→20:58)
[2021-02-27] MEDS: ENOXAPARIN 30 MG/0.3 ML SYRINGE SQ SCH (08:32)
[2021-02-27] MEDS: NOREPINEPHRINE 32 MG in SODIUM CHLORIDE 0.9% 218 ML IV SCH (08:32)
--- NOTE | 2021-02-27 10:36 | P.PN ---
Subjective Progress Note Date: 02/27/21 Principal diagnosis: COVID 19 pneumonia. Patient was reevaluated today on 02/24/2021, patient remains in the ICU, intubated and mechanically ventilated. He is on assist control rate of 40 tidal volume is 485-85% PEEP remains at 18. ABG showed a pO2 of 58 pCO2 of 81 pH of 7.18. Peak airway pressure is 38, static pressure is 24. Chest x-ray is basically the same, continues to show bilateral patchy infiltrates. Patient remains on multiple drips including IV fluid at KVO, bicarbonate 100 mL/h, Nimbex S3 propofol at 20 norepinephrine at 0.12, and fentanyl at 0.05. Patient remains on enteral feeding using Nepro 36/36. Today I cut down his FiO2 to 75%, up to the ventilator settings exactly the same otherwise. Patient is supposed to have hemodialysis today. Family has been approached regarding CODE STATUS again, insists on full code. Although the patient had 2 cardiac arrests already while in the ICU. WBC count is 5.2 hemoglobin is 8.4. Electrolytes are normal renal profile is abnormal with a BUN of 118 creatinine 6.79. Patient is going to be dialyzed today. Patient remains sedated and paralyzed. And based on his chest x-ray findings, ABG findings, and his overall status, he is nowhere to be considered for any weaning except possibly cutting down the FiO2 from 85% to 80% or maybe 75% Patient was reevaluated today on 02/25/2021, remains intubated and mechanically ventilated. Had an episode of bradycardia yesterday associated with hypotension, patient responded to atropine and epinephrine injection. Had to be placed back up on 100% FiO2. His vent settings at present are assist control rate of 40 tidal volume is 480 FiO2 is 90% and PEEP of 18. ABG earlier on 75% FiO2 showed a pO2 of 48 pCO2 of 78 pH of 7.21. Presently the patient is on 90% FiO2. He is undergoing hemodialysis today. Presently on propofol at 20 norepinephrine at 0.1 fentanyl at 0.5 Nimbex S3 bicarb drip at 100 mL an hour. Patient is on enteral feeding using Nepro he will be receiving a unit of blood today for low hemoglobin. And we have increase his Pepcid to twice a day. Had some coffee-ground emesis through the nasogastric tube today. WBC count is 7.8 hemoglobin is 7.7. Electrolytes are normal potassium is 5.2 BUN is 105 creatinine 6.03. Chest x-ray is basically about the same, continues to show bilateral patchy infiltrates consistent with COVID-19 pneumonia. Not much different from his x-ray in the last few days. Patient was reevaluated today on 02/26/2021, remains in the ICU, sedated, intubated, paralyzed, patient remains on assist control rate of 40 total volume 480 FiO2 of 100% PEEP of 18. ABG this morning showed a pO2 of 59 pCO2 of 79 pH of 7.22. A shunt remains on dialysis, remains on enteral feeding in the form of Nepro 36/36. Remains on bicarb drip 3 A running at 50 MLS per hour, Nimbex propofol at 20 fentanyl at 0.5. Patient has shown staph aureus in the sputum. He had E. coli urinary tract infection, remains on Rocephin, over the last week, patient coded twice, and he had episodes of bradycardia responding to atropine and epinephrine injections. His x-ray is actually a bit worse compared to his initial x-ray. He was seen by nephrology today, and is scheduled to undergo dialysis today. Yesterday the patient received a unit of packed RBCs for low hemoglobin, his hemoglobin today is 8. WBC count is 7.1. Platelets are 174. Electrolytes are normal bicarb is 34 BUN is 97 creatinine is 5.36. Progress note dated 02/27/2021. This is a patient who was admitted back on 02/09/2021. The patient remains on the mechanical ventilator. He is again seen today in room 250. His initial diagnosis was that of acute hypoxemic respiratory failure secondary to coronavirus infection. Currently, the patient's on the volume assist control mode, rate of 40, tidal volume 480, FiO2 100%, and a PEEP of 18. Blood gases show a PaO2 of 72, PaCO2 75, and pH is 7.21. The patient's getting saline at 20 mL an hour, 3 ampules of sodium bicarbonate bicarbonate and D5W at 50 mL an hour, [place] fall at 20 mcg/kg/m, Nimbex at 5 mcg/kg/m, fentanyl drip that 0.5 mcg/kg/h, and tube feedings with Nepro at 36 mL an hour, which is goal. The patient's PaO2/FiO2 ratio, is less than 100. The patient has severe ARDS. The patient should receive a tracheostomy and PEG tube placement. Currently labs include a white count 6.7, hemoglobin 7.2, hematocrit 22.5, and platelet count 196,000. D-dimer is 4.61. Sodium 136, potassium 4.9, chlorides 97, CO2 31, anion gap 8, BUN 76, and creatinine 4.39. Microbiology showing urine cultures p ositive for Escherichia coli, blood cultures positive for coag-negative staph, and a sputum from February 16 showing staph aureus and Dianne albicans. Chest x- ray shows bilateral scattered infiltrates. Objective - Vital Signs Vital signs: Vital Signs Temp 98.1 F 02/27/21 08:00 Pulse 81 02/27/21 10:00 Resp 40 H 02/27/21 10:00 BP 151/47 02/27/21 10:00 Pulse Ox 95 02/27/21 10:00 Intake & Output 02/26/21 02/27/21 02/27/21 18:59 06:59 18:59 Intake Total 1981.75 1579 446.164 Output Total 15 5000 15 Balance 1966.75 -3421 431.164 Weight 133.2 kg Intake: IV 949 803 242 Dextrose 5% in Water 1, 650 550 150 000 ml @ 50 mls/hr IV . Q23H MARIO with Sodium Bicarb (1 Meq/ml) 150 ml Rx#:[id number] Pressure bag 39 33 12 Sodium Chloride 0.9% 1, 260 220 80 000 ml @ 20 mls/hr IV . Q24H MARIO Rx#:[id number] Intake, IV Titration 494.75 300 102.164 Amount Cisatracurium 200 mg In 400.00 200 Sodium Chloride 0.9% 180 ml @ 1 MCG/KG/MIN 5.987 mls/hr IV .Q24H MARIO Rx#: [id number] fentaNYL (PF). 1,000 mcg 94.75 In Sodium Chloride 0.9% 80 ml @ Per Protocol IV . Q0M MARIO Rx#:[id number] propofoL 1,000 mg In 100 102.164 Empty Bag 1 bag @ Titrate IV .Q0M MARIO Rx#: [id number] Tube Feeding 468 396 72 Other 70 80 30 Output: Urine 15 0 15 Hemodialysis 2500 Other 2500 Other: Voiding Method Indwelling Catheter Indwelling Catheter ABP, PAP, CO, CI - Last Documented Arterial Blood Pressure 159/52 - Exam Sedated and paralyzed, with an orally placed endotracheal tube and NG tube. Saturations are 95%. HEENT examination is grossly unremarkable. Neck supple. Full range of motion. No adenopathy thyromegaly or neck vein distention. Cardiovascular examination reveals regular rhythm rate. S1-S2 normal. No S3 or S4. No discernible murmur noted. Heart sounds distant. Heart rate 81 bpm. Lungs reveal diffuse bilateral rhonchi and crackles. Breath sounds equal. Abdomen soft bowel sounds are heard. No masses or tenderness. Extremities are intact. No cyanosis or clubbing. Diffuse bilateral lower extremity edema is noted. Skin is without rash or lesion. Neurologic examination could not be adequately assessed as the patient's heavily sedated and paralyzed. - Labs CBC & Chem 7: 02/27/21 05:00 02/27/21 05:00 Labs: Abnormal Lab Results - Last 24 Hours (Table) 02/26/21 02/26/21 02/26/21 Range/Units 11:29 17:23 23:52 RBC (4.30-5.90) m/uL Hgb (13.0-17.5) gm/dL Hct (39.0-53.0) % RDW (11.5-15.5) % Monocytes # (Manual) (0-1.0) k/uL Myelocytes # (Manual) (0) k/uL Nucleated RBCs (0-0) /100 WBC D-Dimer (<0.60) mg/L FEU ABG pH (7.35-7.45) ABG pCO2 (35-45) mmHg ABG pO2 (83-108) mmHg ABG HCO3 (21-25) mmol/L ABG Total CO2 (19-24) mmol/L Sodium (137-145) mmol/L Chloride (98-107) mmol/L Carbon Dioxide (22-30) mmol/L BUN (9-20) mg/dL Creatinine (0.66-1.25) mg/dL Glucose (74-99) mg/dL POC Glucose (mg/dL) 139 H 117 H 122 H (75-99) mg/dL Calcium (8.4-10.2) mg/dL 02/27/21 02/27/21 02/27/21 Range/Units 05:00 05:00 05:00 RBC 2.34 L (4.30-5.90) m/uL Hgb 7.2 L (13.0-17.5) gm/dL Hct 22.5 L (39.0-53.0) % RDW 18.7 H (11.5-15.5) % Monocytes # (Manual) 1.07 H (0-1.0) k/uL Myelocytes # (Manual) 0.07 H (0) k/uL Nucleated RBCs 18 H (0-0) /100 WBC D-Dimer 4.61 H (<0.60) mg/L FEU ABG pH (7.35-7.45) ABG pCO2 (35-45) mmHg ABG pO2 (83-108) mmHg ABG HCO3 (21-25) mmol/L ABG Total CO2 (19-24) mmol/L Sodium 136 L (137-145) mmol/L Chloride 97 L (98-107) mmol/L Carbon Dioxide 31 H (22-30) mmol/L BUN 76 H (9-20) mg/dL Creatinine 4.39 H (0.66-1.25) mg/dL Glucose 116 H (74-99) mg/dL POC Glucose (mg/dL) (75-99) mg/dL Calcium 8.1 L (8.4-10.2) mg/dL 02/27/21 Range/Units 05:18 RBC (4.30-5.90) m/uL Hgb (13.0-17.5) gm/dL Hct (39.0-53.0) % RDW (11.5-15.5) % Monocytes # (Manual) (0-1.0) k/uL Myelocytes # (Manual) (0) k/uL Nucleated RBCs (0-0) /100 WBC D-Dimer (<0.60) mg/L FEU ABG pH 7.21 L (7.35-7.45) ABG pCO2 75 H* (35-45) mmHg ABG pO2 72 L (83-108) mmHg ABG HCO3 30 H (21-25) mmol/L ABG Total CO2 32 H (19-24) mmol/L Sodium (137-145) mmol/L Chloride (98-107) mmol/L Carbon Dioxide (22-30) mmol/L BUN (9-20) mg/dL Creatinine (0.66-1.25) mg/dL Glucose (74-99) mg/dL POC Glucose (mg/dL) (75-99) mg/dL Calcium (8.4-10.2) mg/dL Assessment and Plan Assessment: Acute hypoxemic respiratory failure secondary to COVID 19 pneumonia, severe ARDS. The patient has been intubated for more than 2 weeks, and was admitted back on 02/09/2021. Acute kidney injury and renal fire, requiring hemodialysis. Prior history of tobacco use. Elevated liver enzymes secondary to COVID 19 pneumonia and sepsis. Severe cardiomyopathy with LV dysfunction and ejection fraction of 20%. Cardiac arrest requiring CPR 2. History of supraventricular tachycardia. Escherichia coli urinary tract infection. Methicillin sensitive staph aureus tracheobronchitis/bronchopneumonia. Gastrointestinal bleed. Plan: Plan dated 02/27/2021. The patient has been in the hospital for 18 days. The patient was admitted back on 02/09/2021. The patient remains on sedation with propofol, and fentanyl, as well as paralysis with Nimbex. The patient developed end-stage renal disease requiring hemodialysis. The patient will need a tracheostomy and PEG tube placement. The patient has severe ARDS, with a P/F ratio of less than 100. Prognosis is very poor. Apparently the family wants to continue with full support. We'll continue to follow make recommendations were appropriate. Time with Patient: Greater than 30
--- NOTE | 2021-02-27 10:43 | P.PN ---
Subjective Patient is seen in follow-up for acute kidney injury, currently hemodialysis dependent. Oliguric. Intubated. On 100% FiO2. Scheduled for tracheostomy and PEG tube placement today. Off vasopressors. Vital signs are stable. Intubated. No gross edema noted. Exam discussed with the nurse. Objective - Vital Signs Vital signs: Vital Signs Temp 98.1 F 02/27/21 08:00 Pulse 81 02/27/21 10:00 Resp 40 H 02/27/21 10:00 BP 151/47 02/27/21 10:00 Pulse Ox 95 02/27/21 10:00 Intake & Output 02/26/21 02/27/21 02/27/21 18:59 06:59 18:59 Intake Total 1981.75 1579 446.164 Output Total 15 5000 15 Balance 1966.75 -3421 431.164 Weight 133.2 kg Intake: IV 949 803 242 Dextrose 5% in Water 1, 650 550 150 000 ml @ 50 mls/hr IV . Q23H MARIO with Sodium Bicarb (1 Meq/ml) 150 ml Rx#:[id number] Pressure bag 39 33 12 Sodium Chloride 0.9% 1, 260 220 80 000 ml @ 20 mls/hr IV . Q24H MARIO Rx#:[id number] Intake, IV Titration 494.75 300 102.164 Amount Cisatracurium 200 mg In 400.00 200 Sodium Chloride 0.9% 180 ml @ 1 MCG/KG/MIN 5.987 mls/hr IV .Q24H MARIO Rx#: [id number] fentaNYL (PF). 1,000 mcg 94.75 In Sodium Chloride 0.9% 80 ml @ Per Protocol IV . Q0M MARIO Rx#:[id number] propofoL 1,000 mg In 100 102.164 Empty Bag 1 bag @ Titrate IV .Q0M MARIO Rx#: [id number] Tube Feeding 468 396 72 Other 70 80 30 Output: Urine 15 0 15 Hemodialysis 2500 Other 2500 Other: Voiding Method Indwelling Catheter Indwelling Catheter ABP, PAP, CO, CI - Last Documented Arterial Blood Pressure 159/52 - Labs CBC & Chem 7: 02/27/21 05:00 02/27/21 05:00 Labs: Abnormal Lab Results - Last 24 Hours (Table) 02/26/21 02/26/21 02/26/21 Range/Units 11:29 17:23 23:52 RBC (4.30-5.90) m/uL Hgb (13.0-17.5) gm/dL Hct (39.0-53.0) % RDW (11.5-15.5) % Monocytes # (Manual) (0-1.0) k/uL Myelocytes # (Manual) (0) k/uL Nucleated RBCs (0-0) /100 WBC D-Dimer (<0.60) mg/L FEU ABG pH (7.35-7.45) ABG pCO2 (35-45) mmHg ABG pO2 (83-108) mmHg ABG HCO3 (21-25) mmol/L ABG Total CO2 (19-24) mmol/L Sodium (137-145) mmol/L Chloride (98-107) mmol/L Carbon Dioxide (22-30) mmol/L BUN (9-20) mg/dL Creatinine (0.66-1.25) mg/dL Glucose (74-99) mg/dL POC Glucose (mg/dL) 139 H 117 H 122 H (75-99) mg/dL Calcium (8.4-10.2) mg/dL 02/27/21 02/27/21 02/27/21 Range/Units 05:00 05:00 05:00 RBC 2.34 L (4.30-5.90) m/uL Hgb 7.2 L (13.0-17.5) gm/dL Hct 22.5 L (39.0-53.0) % RDW 18.7 H (11.5-15.5) % Monocytes # (Manual) 1.07 H (0-1.0) k/uL Myelocytes # (Manual) 0.07 H (0) k/uL Nucleated RBCs 18 H (0-0) /100 WBC D-Dimer 4.61 H (<0.60) mg/L FEU ABG pH (7.35-7.45) ABG pCO2 (35-45) mmHg ABG pO2 (83-108) mmHg ABG HCO3 (21-25) mmol/L ABG Total CO2 (19-24) mmol/L Sodium 136 L (137-145) mmol/L Chloride 97 L (98-107) mmol/L Carbon Dioxide 31 H (22-30) mmol/L BUN 76 H (9-20) mg/dL Creatinine 4.39 H (0.66-1.25) mg/dL Glucose 116 H (74-99) mg/dL POC Glucose (mg/dL) (75-99) mg/dL Calcium 8.1 L (8.4-10.2) mg/dL 02/27/21 Range/Units 05:18 RBC (4.30-5.90) m/uL Hgb (13.0-17.5) gm/dL Hct (39.0-53.0) % RDW (11.5-15.5) % Monocytes # (Manual) (0-1.0) k/uL Myelocytes # (Manual) (0) k/uL Nucleated RBCs (0-0) /100 WBC D-Dimer (<0.60) mg/L FEU ABG pH 7.21 L (7.35-7.45) ABG pCO2 75 H* (35-45) mmHg ABG pO2 72 L (83-108) mmHg ABG HCO3 30 H (21-25) mmol/L ABG Total CO2 32 H (19-24) mmol/L Sodium (137-145) mmol/L Chloride (98-107) mmol/L Carbon Dioxide (22-30) mmol/L BUN (9-20) mg/dL Creatinine (0.66-1.25) mg/dL Glucose (74-99) mg/dL POC Glucose (mg/dL) (75-99) mg/dL Calcium (8.4-10.2) mg/dL Assessment and Plan Plan: assessment: 1. Acute kidney injury secondary to ATN secondary to COVID-19 infection. Oliguric. Currently hemodialysis dependent. Baseline creatinine near 1. 2. Acute hypoxia respiratory failure. 3. Metabolic acidosis secondary to acute kidney injury maintained on bicarb drip. Resolved. 4. COVID-19 pneumonia maintained on steroids and zinc. 5. Anemia status post blood transfusion this admission. Plan: Hemodialysis today. Stop bicarb drip. Scheduled for tracheostomy and PEG tube placement today. Maintain tube feeding. Check phosphorus level. Monitor for renal recovery. Add Aranesp. Hold midodrine for systolic blood pressure greater than 110..
[2021-02-27] MEDS ORDERED: DARBEPOETIN ALFA 25 MCG/0.42 ML SYRINGE SQ SCH (11:00)
--- NOTE | 2021-02-27 11:17 | CDI ---
Documentation Clarification Form Date: 02/27/2021 10:32:02 AM From: Shyla Madden RN, CCDS Admit Date: 02/09/2021 11:00:00 PM Patient Name: Holden Putnam Visit Number: [id number] Discharge Date: ATTENTION: The Clinical Documentation Specialists (CDI) and [facility] Coding Staff appreciate your assistance in clarifying documentation. Please respond to the clarification below the line at the bottom and electronically sign. The CDI & [facility] Coding staff will review the response and follow-up if needed. Please note: Queries are made part of the Legal Health Record. If you have any questions, please contact the author of this message via ITS. Dr. Sienna Collins Cardiac arrest is documented in the progress note starting on 02/22, during dialysis Please clarify if there is a relationship between the cardiac arrest that occurred toward the end of dialysis treatment. History/Risk Factors: Covid-19 Pneumonia, Respiratory failure, Clinical Indicators: 65-year old male positive for Covid-19 on admission. His renal function deteriorated with worsening urine output per progress notes on 02/20/21 and serum creatinine was 4.15. Hypotension secondary to sepsis also documented. He was started on dialysis on 02/20/21 On 02/22/21 per progress notes toward the end of dialysis patient lost his pulse, went pulseless and he had pulseless electrical activity. He received CPR for less than 5 minutes. He was in SVT post cardiac arrest. 02/22 Vital signs: 93/45 84 40 mechanical ventilation. Treatment: ICU/Telemetry Mechanical ventilation (per pulmonary) Epinephrine X2, Bicard x3 Shocked X2 and placed on amiodarone bolus and drip. (per pulmonary code response documentation (02/22). Levophed .2 mg IV 02/22-02/27) Please clarify the relationship, if any, which is clinically appropriate for this patient: [ ] Cardiac arrest is due to Dialysis treatment [ ] Cardiac arrest is not due to patient Covid-19 related conditions (further specify if known) [ ] Other explanation of clinical findings (please specify) [ ] Unable to determine (no explanation for clinical findings) (Template Last Revised: January 2021) cardiac arrest not related to dialysis. Possibly related to COVID versus primary cardiac event. BP was not low through out treatment until the event. MTDD
--- NOTE | 2021-02-27 11:22 | P.GSCN ---
History of Present Illness Consult date: 02/27/21 History of present illness: CHIEF COMPLAINT: Shortness of breath HISTORY OF PRESENT ILLNESS: This is a 65-year-old male who presented to the hospital with worsening shortness of breath and fever with cough. He was found to have evidence of COVID-19 pneumonia. And had worsening respiratory status and required to be intubated on 02/12/2021. Patient was admitted to the hospital on 02/09/2021. During his hospitalization patient had 2 cardiac arrests requiring CPR. Also had evidence of severe cardiomyopathy with a EF of 20%. And did develop acute renal failure and required to be started on hemodialysis during this admission. Patient is currently off of vasopressors. Due to prolonged mechanical ventilation surgical consult was placed for tracheostomy and PEG tube placement. PAST MEDICAL HISTORY: See list. PAST SURGICAL HISTORY: See list. MEDICATIONS: See list. ALLERGIES: See list. SOCIAL HISTORY: No illicit drug use. REVIEW OF SYSTEMS: CONSTITUTIONAL: Denies fever or chills. HEENT: Denies blurred vision, vision changes, or eye pain. Denies hemoptysis CARDIOVASCULAR: Denies chest pain or pressure. RESPIRATORY: No shortness of breath. GASTROINTESTINAL: See HPI for pertinent findings HEMATOLOGIC: Denies bleeding disorders. GENITOURINARY: Denies any blood in urine or increased urinary frequency. SKIN: Denies pruitis. Denies rash. PHYSICAL EXAM: VITAL SIGNS: Reviewed GENERAL: Well-developed in no acute distress. HEENT: No sclera icterus. Extraocular movements grossly intact. Moist buccal mucosa. Head is atraumatic, normocephalic. No nasal drainage. ABDOMEN: Soft. Nondistended. Nondistended NEUROLOGIC: Intubated and sedated LABORATORY DATA: WBC 6.7 hemoglobin 7.2 platelets 196 Sodium 136 potassium 4.9 BUN 76 creatinine 4.39 Albumin 2.9 IMAGING: ASSESSMENT: 1. Acute hypoxic respiratory failure requiring prolonged mechanical ventilation 2. Severe protein calorie malnutrition 3. COVID-19 pneumonia PLAN: -Patient scheduled for tracheostomy and PEG tube placement today with Dr. Mosquera -Placed tube feedings on hold -Continue ICU management -Continue supportive care Thank you for this consultation Physician Salon Coordinator note has been reviewed by physician. Signing provider agrees with the documented findings, assessment, and plan of care. Past Medical History Past Medical History: No Reported History Additional Past Medical History / Comment(s): hemmorhoids, blood in stool, hx of rheumatic fever as child History of Any Multi-Drug Resistant Organisms: None Reported Past Surgical History: Orthopedic Surgery Additional Past Surgical History / Comment(s): 3 surgeries on left shoulder Past Anesthesia/Blood Transfusion Reactions: No Reported Reaction Past Psychological History: No Psychological Hx Reported Smoking Status: Former smoker Past Alcohol Use History: Occasional Past Drug Use History: Marijuana Medications and Allergies Home Medications Medication Instructions Recorded Confirmed Type HYDROcodone/APAP 10-325MG [[place] 0.5 - 1 tab PO BID PRN 06/04/19 02/09/21 History 10-325] Azithromycin [Zithromax Z-pack (6 See Taper PO DIRECTED 02/09/21 02/09/21 History tabs)] Dexamethasone [Decadron] 3 mg PO BID 02/09/21 02/09/21 History Allergies Allergy/AdvReac Type Severity Reaction Status Date / Time No Known Allergies Allergy Verified 02/09/21 23:08 Surgical - Exam Vital Signs Temp Pulse Resp BP Pulse Ox 98.7 F 110 H 36 H 147/79 84 L 02/09/21 21:11 02/09/21 21:11 02/09/21 21:11 02/09/21 21:11 02/09/21 21:11 Results - Labs 02/27/21 05:00 02/27/21 05:00 Abnormal Lab Results - Last 24 Hours (Table) 02/26/21 02/26/21 02/26/21 Range/Units 11:29 17:23 23:52 RBC (4.30-5.90) m/uL Hgb (13.0-17.5) gm/dL Hct (39.0-53.0) % RDW (11.5-15.5) % Monocytes # (Manual) (0-1.0) k/uL Myelocytes # (Manual) (0) k/uL Nucleated RBCs (0-0) /100 WBC D-Dimer (<0.60) mg/L FEU ABG pH (7.35-7.45) ABG pCO2 (35-45) mmHg ABG pO2 (83-108) mmHg ABG HCO3 (21-25) mmol/L ABG Total CO2 (19-24) mmol/L Sodium (137-145) mmol/L Chloride (98-107) mmol/L Carbon Dioxide (22-30) mmol/L BUN (9-20) mg/dL Creatinine (0.66-1.25) mg/dL Glucose (74-99) mg/dL POC Glucose (mg/dL) 139 H 117 H 122 H (75-99) mg/dL Calcium (8.4-10.2) mg/dL 02/27/21 02/27/21 02/27/21 Range/Units 05:00 05:00 05:00 RBC 2.34 L (4.30-5.90) m/uL Hgb 7.2 L (13.0-17.5) gm/dL Hct 22.5 L (39.0-53.0) % RDW 18.7 H (11.5-15.5) % Monocytes # (Manual) 1.07 H (0-1.0) k/uL Myelocytes # (Manual) 0.07 H (0) k/uL Nucleated RBCs 18 H (0-0) /100 WBC D-Dimer 4.61 H (<0.60) mg/L FEU ABG pH (7.35-7.45) ABG pCO2 (35-45) mmHg ABG pO2 (83-108) mmHg ABG HCO3 (21-25) mmol/L ABG Total CO2 (19-24) mmol/L Sodium 136 L (137-145) mmol/L Chloride 97 L (98-107) mmol/L Carbon Dioxide 31 H (22-30) mmol/L BUN 76 H (9-20) mg/dL Creatinine 4.39 H (0.66-1.25) mg/dL Glucose 116 H (74-99) mg/dL POC Glucose (mg/dL) (75-99) mg/dL Calcium 8.1 L (8.4-10.2) mg/dL 02/27/21 Range/Units 05:18 RBC (4.30-5.90) m/uL Hgb (13.0-17.5) gm/dL Hct (39.0-53.0) % RDW (11.5-15.5) % Monocytes # (Manual) (0-1.0) k/uL Myelocytes # (Manual) (0) k/uL Nucleated RBCs (0-0) /100 WBC D-Dimer (<0.60) mg/L FEU ABG pH 7.21 L (7.35-7.45) ABG pCO2 75 H* (35-45) mmHg ABG pO2 72 L (83-108) mmHg ABG HCO3 30 H (21-25) mmol/L ABG Total CO2 32 H (19-24) mmol/L Sodium (137-145) mmol/L Chloride (98-107) mmol/L Carbon Dioxide (22-30) mmol/L BUN (9-20) mg/dL Creatinine (0.66-1.25) mg/dL Glucose (74-99) mg/dL POC Glucose (mg/dL) (75-99) mg/dL Calcium (8.4-10.2) mg/dL Diabetes panel 02/27/21 Range/Units 05:00 Sodium 136 L (137-145) mmol/L Potassium 4.9 (3.5-5.1) mmol/L Chloride 97 L (98-107) mmol/L Carbon Dioxide 31 H (22-30) mmol/L BUN 76 H (9-20) mg/dL Creatinine 4.39 H (0.66-1.25) mg/dL Glucose 116 H (74-99) mg/dL Calcium 8.1 L (8.4-10.2) mg/dL Calcium panel 02/27/21 Range/Units 05:00 Calcium 8.1 L (8.4-10.2) mg/dL Pituitary panel 02/27/21 Range/Units 05:00 Sodium 136 L (137-145) mmol/L Potassium 4.9 (3.5-5.1) mmol/L Chloride 97 L (98-107) mmol/L Carbon Dioxide 31 H (22-30) mmol/L BUN 76 H (9-20) mg/dL Creatinine 4.39 H (0.66-1.25) mg/dL Glucose 116 H (74-99) mg/dL Calcium 8.1 L (8.4-10.2) mg/dL Adrenal panel 02/27/21 Range/Units 05:00 Sodium 136 L (137-145) mmol/L Potassium 4.9 (3.5-5.1) mmol/L Chloride 97 L (98-107) mmol/L Carbon Dioxide 31 H (22-30) mmol/L BUN 76 H (9-20) mg/dL Creatinine 4.39 H (0.66-1.25) mg/dL Glucose 116 H (74-99) mg/dL Calcium 8.1 L (8.4-10.2) mg/dL
[2021-02-27] MEDS: fentaNYL (PF). 1,000 MCG in SODIUM CHLORIDE 0.9% 80 ML IV SCH (11:25)
[2021-02-27 11:57] LABS: Glucose,Whole Blood 156 mg/dL (75-99)
[2021-02-27 12:02] LABS: Glucose,Whole Blood 129 mg/dL (75-99)
[2021-02-27 13:34] VITALS: BMI 37.7
[2021-02-27 18:04] LABS: Glucose,Whole Blood 90 mg/dL (75-99)
--- NOTE | 2021-02-27 20:24 | P.PN ---
Subjective This is a pleasant 65 years old male with no significant past medical history who presents because of one-week history of dyspnea associated with high fever at 101.3 at home. Associated with coughing. He feels generally weak but no significant chest pain. Patient dyspnea was getting more worse and he was not feeling well so family brought him to the hospital. His symptoms started about 2 weeks Patient is poor historian and is oxygen saturation was troponin while he was on high flow nasal cannula and he has to be placed on BiPAP and sent to the ICU from emergency room Patient is ex-smoker, he quit a few months ago. Used to smoke 2 packs per day. Patient is tachypneic with a breathing rate of 30, he is saturating any to on 60 L/m of oxygen via high flow cannula. A febrile. CBC, and BMP are unremarkable. Liver enzymes slightly elevated with AST 100 and ALT 86 and normal bilirubin of 0.7. D-dimer is elevated at 5.7. Elevated troponin 0.03, 0.06, 0.06 Chronic varus detected CTA of the chest: No evidence of PE. Extensive bilateral pneumonia, emphysema EKG showing sinus tachycardia at 107 with the bundle branch block and QTC 523 Chest x-ray: Bilateral infiltrates Ultrasound of the lower extremities is negative for DVT on both sides In ED he was started on Lovenox, normal saline at 75 mL/h, one-time dose of tocilizumab per pulmonary team , vitamin C, zinc and vitamin D. Patient has been evaluated by pulmonary service, he was started on BiPAP and admitted to the ICU 02/27/2021 This is a pleasant 65 years old -[place] male who was admitted due to respiratory failure secondary to, pneumonia, initially was on BiPAP however his respiratory status deteriorated gradually needing intubation and mechanical ventilation. Currently [facility] the ICU monitoring closely by pulmonary/critical care team will help with vent management. Patient still needs PEEP of 18 Patient is planned to have tracheostomy and PEG tube placement today by surgery team Also he continues on hemodialysis for his acute kidney injury Patient currently on ceftriaxone, Lovenox renal dose, zinc and vitamin C review of systems: n/a Active Medications Generic Name Dose Route Start Last Admin Trade Name Freq PRN Reason Stop Dose Admin Acetaminophen 650 mg 02/09/21 22:58 02/17/21 21:32 Acetaminophen Tab 325 Mg Tab PO 650 mg Q6HR PRN Administration Mild Pain or Fever > 100.5 Amiodarone HCl 200 mg 02/23/21 09:00 02/27/21 08:09 Amiodarone 200 Mg Tab PO 200 mg BID MARIO Administration Ascorbic Acid 500 mg 02/10/21 09:00 02/27/21 08:10 Ascorbic Acid 500 Mg Tab PO 500 mg DAILY MARIO Administration Aspirin 81 mg 02/10/21 10:15 02/27/21 08:09 Aspirin 81 Mg PO 81 mg DAILY MARIO Administration Chlorhexidine Gluconate 15 ml 02/12/21 09:00 02/27/21 08:10 Chlorhexidine Gluconate 15 Ml Cup MUCOUS MEM 15 ml BID MARIO Administration Cholecalciferol 100 mcg 02/10/21 09:00 02/27/21 08:10 Cholecalciferol 25 Mcg (1000 Iu) Tablet PO 100 mcg DAILY MARIO Administration Darbepoetin Miguel Ángel 25 mcg 02/27/21 11:00 02/27/21 11:56 Darbepoetin Miguel Ángel 25 Mcg/0.42 Ml Syringe SQ 25 mcg Q7D MARIO Administration Enoxaparin Sodium 30 mg 02/23/21 09:00 02/27/21 08:32 Enoxaparin 30 Mg/0.3 Ml Syringe SQ 30 mg DAILY MARIO Administration Famotidine 20 mg 02/25/21 21:00 02/27/21 08:10 Famotidine 20 Mg/2 Ml Vial IV 20 mg Q12HR MARIO Administration Cisatracurium Besylate 200 mg/ 200 mls @ 5.987 mls/hr 02/12/21 06:00 02/27/21 18:58 Sodium Chloride IV 5 mcg/kg/min .Q24H MARIO 29.937 mls/hr Administration Protocol 1 MCG/KG/MIN Propofol 1,000 mg/ IV Solution 100 mls @ 0 mls/hr 02/12/21 06:30 02/27/21 16:24 IV 20 mcg/kg/min .Q0M MARIO 15.984 mls/hr Administration Protocol Titrate Sodium Chloride 1,000 mls @ 20 mls/hr 02/19/21 07:00 02/27/21 03:37 Saline 0.9% IV 20 mls/hr .Q24H MARIO Administration Fentanyl Citrate 1,000 mcg/ 100 mls @ 0 mls/hr 02/20/21 08:15 02/27/21 11:25 Sodium Chloride IV 0.5 mcg/kg/hr .Q0M MARIO 5.435 mls/hr Administration Protocol Per Protocol Ceftriaxone Sodium 1 gm/ 50 mls @ 100 mls/hr 02/21/21 09:00 02/27/21 08:31 Sodium Chloride IVPB 100 mls/hr Q24HR MARIO Administration Norepinephrine Bitartrate 32 250 mls @ 2.759 mls/hr 02/22/21 11:15 02/27/21 08:32 mg/ Sodium Chloride IV Not Given .Q24H MARIO Protocol 0.05 MCG/KG/MIN Insulin Aspart 0 unit 02/23/21 18:00 02/27/21 18:04 Insulin Aspart (Novolog) 100 Unit/Ml Vial SQ Not Given Q6HR MARIO Protocol Metoprolol Tartrate 25 mg 02/10/21 10:15 02/27/21 08:09 Metoprolol Tartrate 25 Mg Tab PO 25 mg BID MARIO Administration Midodrine 10 mg 02/24/21 14:00 02/27/21 18:05 Midodrine 5 Mg Tab PO Not Given 0600,1000,1400,1800 MARIO Naloxone HCl 0.2 mg 02/09/21 22:58 Naloxone 0.4 Mg/Ml 1 Ml Vial IV Q2M PRN Opioid Reversal Zinc Sulfate 220 mg 02/10/21 09:00 02/27/21 08:10 Zinc Sulfate 220 Mg Cap PO 220 mg DAILY MARIO Administration Objective - Vital Signs Vital signs: Vital Signs Temp 98.3 F 02/27/21 12:00 Pulse 80 02/27/21 12:00 Resp 40 H 02/27/21 12:00 BP 118/52 02/27/21 12:00 Pulse Ox 95 02/27/21 12:00 Intake & Output 02/26/21 02/27/21 02/27/21 18:59 06:59 18:59 Intake Total 1981.75 1579 856.221 Output Total 15 5000 25 Balance 1966.75 -3421 831.221 Weight 133.2 kg 133.2 kg Intake: IV 949 803 288 Dextrose 5% in Water 1, 650 550 150 000 ml @ 50 mls/hr IV . Q23H MARIO with Sodium Bicarb (1 Meq/ml) 150 ml Rx#:[id number] Pressure bag 39 33 18 Sodium Chloride 0.9% 1, 260 220 120 000 ml @ 20 mls/hr IV . Q24H MARIO Rx#:[id number] Intake, IV Titration 494.75 300 466.221 Amount Cisatracurium 200 mg In 400.00 200 173.635 Sodium Chloride 0.9% 180 ml @ 1 MCG/KG/MIN 5.987 mls/hr IV .Q24H MARIO Rx#: [id number] cefTRIAXone 1 gm In 50 Sodium Chloride 0.9% 50 ml @ 100 mls/hr IVPB Q24HR MARIO Rx#:[id number] fentaNYL (PF). 1,000 mcg 94.75 98.464 In Sodium Chloride 0.9% 80 ml @ Per Protocol IV . Q0M MARIO Rx#:[id number] propofoL 1,000 mg In 100 144.122 Empty Bag 1 bag @ Titrate IV .Q0M MARIO Rx#: [id number] Tube Feeding 468 396 72 Other 70 80 30 Output: Urine 15 0 25 Hemodialysis 2500 Other 2500 Other: Voiding Method Indwelling Catheter Indwelling Catheter Indwelling Catheter ABP, PAP, CO, CI - Last Documented Arterial Blood Pressure 159/52 - Exam -GENERAL: The patient is intubated and sedated HEENT: Pupils are round and equally reacting to light. EOMI. No scleral icterus. No conjunctival pallor. Normocephalic, atraumatic. No pharyngeal erythema. No thyromegaly. CARDIOVASCULAR: S1 and S2 present. No murmurs, rubs, or gallops. PULMONARY: Chest is clear to auscultation, no wheezing or crackles. ABDOMEN: Soft, nontender, nondistended, normoactive bowel sounds. No palpable organomegaly. MUSCULOSKELETAL: No joint swelling or deformity. EXTREMITIES: No cyanosis, clubbing, or pedal edema. NEUROLOGICAL: Gross neurological examination did not reveal any focal deficits. SKIN: No rashes. no petechiae. - Labs CBC & Chem 7: 02/27/21 05:00 02/27/21 05:00 Labs: Abnormal Lab Results - Last 24 Hours (Table) 02/26/21 02/26/21 02/27/21 Range/Units 17:23 23:52 05:00 RBC 2.34 L (4.30-5.90) m/uL Hgb 7.2 L (13.0-17.5) gm/dL Hct 22.5 L (39.0-53.0) % RDW 18.7 H (11.5-15.5) % Monocytes # (Manual) 1.07 H (0-1.0) k/uL Myelocytes # (Manual) 0.07 H (0) k/uL Nucleated RBCs 18 H (0-0) /100 WBC D-Dimer (<0.60) mg/L FEU ABG pH (7.35-7.45) ABG pCO2 (35-45) mmHg ABG pO2 (83-108) mmHg ABG HCO3 (21-25) mmol/L ABG Total CO2 (19-24) mmol/L Sodium (137-145) mmol/L Chloride (98-107) mmol/L Carbon Dioxide (22-30) mmol/L BUN (9-20) mg/dL Creatinine (0.66-1.25) mg/dL Glucose (74-99) mg/dL POC Glucose (mg/dL) 117 H 122 H (75-99) mg/dL Calcium (8.4-10.2) mg/dL Phosphorus (2.5-4.5) mg/dL 02/27/21 02/27/21 02/27/21 Range/Units 05:00 05:00 05:00 RBC (4.30-5.90) m/uL Hgb (13.0-17.5) gm/dL Hct (39.0-53.0) % RDW (11.5-15.5) % Monocytes # (Manual) (0-1.0) k/uL Myelocytes # (Manual) (0) k/uL Nucleated RBCs (0-0) /100 WBC D-Dimer 4.61 H (<0.60) mg/L FEU ABG pH (7.35-7.45) ABG pCO2 (35-45) mmHg ABG pO2 (83-108) mmHg ABG HCO3 (21-25) mmol/L ABG Total CO2 (19-24) mmol/L Sodium 136 L (137-145) mmol/L Chloride 97 L (98-107) mmol/L Carbon Dioxide 31 H (22-30) mmol/L BUN 76 H (9-20) mg/dL Creatinine 4.39 H (0.66-1.25) mg/dL Glucose 116 H (74-99) mg/dL POC Glucose (mg/dL) (75-99) mg/dL Calcium 8.1 L (8.4-10.2) mg/dL Phosphorus 6.9 H (2.5-4.5) mg/dL 02/27/21 02/27/21 02/27/21 Range/Units 05:18 11:56 12:00 RBC (4.30-5.90) m/uL Hgb (13.0-17.5) gm/dL Hct (39.0-53.0) % RDW (11.5-15.5) % Monocytes # (Manual) (0-1.0) k/uL Myelocytes # (Manual) (0) k/uL Nucleated RBCs (0-0) /100 WBC D-Dimer (<0.60) mg/L FEU ABG pH 7.21 L (7.35-7.45) ABG pCO2 75 H* (35-45) mmHg ABG pO2 72 L (83-108) mmHg ABG HCO3 30 H (21-25) mmol/L ABG Total CO2 32 H (19-24) mmol/L Sodium (137-145) mmol/L Chloride (98-107) mmol/L Carbon Dioxide (22-30) mmol/L BUN (9-20) mg/dL Creatinine (0.66-1.25) mg/dL Glucose (74-99) mg/dL POC Glucose (mg/dL) 156 H 129 H (75-99) mg/dL Calcium (8.4-10.2) mg/dL Phosphorus (2.5-4.5) mg/dL Assessment and Plan Assessment: Acute bilateral Covid pneumonia Acute hypoxic respiratory failure secondary to above Elevated inflammatory markers Acute kidney injury with altered urea needing hemodialysis Severe cardiomyopathy EF: 20-25% Elevated troponin, secondary to Covid infection. Elevated d-dimer, with no evidence of PE on CTA of the chest Mildly elevated liver enzymes, secondary to covid Height lactic acid, came back to normal Emphysema Plan: This is a pleasant 65 years old male who presents with Covid. Continue with vent management per pulmonary team. Continue with antibiotic and multiple vitamins. Pulmonary and cardiology consult Plan for PEG tube placement and tracheostomy Labs and medication were reviewed.. Continue same treatment. Continue with symptomatic treatment. Resume home medication. Monitor lytes and vitals. DVT and GI prophylaxis. Further recommendations depends on the clinical course of the patient DVT prophylaxis: Subcutaneous Lovenox GI Prophylaxis: Pepcid Prognosis is guarded
[2021-02-27 23:39] LABS: Glucose,Whole Blood 95 mg/dL (75-99)
[2021-02-28] MEDS: CISATRACURIUM 200 MG in SODIUM CHLORIDE 0.9% 180 ML IV SCH ×4 (01:22→20:10)
[2021-02-28 05:10] LABS: ABG PCO2 71 mmHg (35-45); ABG PH 7.21 (7.35-7.45); ABG PO2 78 mmHg (83-108); Allen Test Performed? Yes
[2021-02-28 05:11] LABS: ABG Base Excess 0.8 mmol/L; ABG HCO3 29 mmol/L (21-25); ABG TCO2 31 mmol/L (19-24)
[2021-02-28 05:32] LABS: Potassium 5.2 mmol/L (3.5-5.1)
[2021-02-28 05:41] LABS: Anisocytosis Slight; HCT 21.3 % (39.0-53.0); Hypochromasia Slight; MCH 31.6 pg (25.0-35.0); MCV 95.9 fL (80.0-100.0); Macrocytosis Slight; Mean Platelet Volume 9.8; Platelet Count 225 k/uL (150-450); Poikilocytosis Moderate; RBC 2.22 m/uL (4.30-5.90); RDW 18.6 % (11.5-15.5)
[2021-02-28] MEDS: INSULIN ASPART (NovoLOG) 100 UNIT/ML VIAL SQ SCH ×3 (06:13→17:54)
[2021-02-28] MEDS: MIDODRINE 5 MG TAB PO SCH ×4 (06:13→17:54)
--- NOTE | 2021-02-28 06:13 | XR ---
EXAMINATION TYPE: XR chest 1V portable DATE OF EXAM: 02/28/2021 CLINICAL HISTORY: Difficulty breathing progress study. TECHNIQUE: Single AP portable upright view of the chest is obtained. COMPARISON: Chest x-ray from one day earlier and older studies. FINDINGS: Likely Stable endotracheal and orogastric tubes. Orogastric tube tip not included in field of view similar to one day earlier. Stable left subclavian central venous catheter. Persistent bilateral reticulonodular increased opacities with more confluent appearance in the lower lungs. Current exam remains suboptimal as does not include entire lung bases. Cardiac silhouette siz e is stable and mildly enlarged. Osseous structures remain intact. IMPRESSION: Suboptimal study, bilateral reticulonodular increased opacities more confluent in the low er lungs consistent with covid-19 redemonstrated. No significant change from one day earlier.
[2021-02-28 06:39] LABS: Band Neutrophils % 9 %; Metamyelocytes % 1 %; Myelocytes % 4 %; Neutrophils % (M) 48 %; Nucleated Red Blood Cells 19 /100 WBC (0-0); Total Cells Counted 200
[2021-02-28 06:41] LABS: Eosinophils # (M) 0.08 k/uL (0-0.7); Lymphocytes # (M) 1.44 k/uL (1.0-4.8); Metamyelocytes # (M) 0.08 k/uL (0); Monocytes # (M) 1.68 k/uL (0-1.0); Myelocytes # (M) 0.32 k/uL (0)
[2021-02-28 06:42] LABS: Polychromasia Present
[2021-02-28] MEDS: fentaNYL (PF). 1,000 MCG in SODIUM CHLORIDE 0.9% 80 ML IV SCH ×2 (08:04→16:09)
[2021-02-28 08:17] LABS: Glucose,Whole Blood 93 mg/dL (75-99)
[2021-02-28] MEDS: FAMOTIDINE 20 MG/2 ML VIAL IV SCH ×2 (08:38→21:01)
--- NOTE | 2021-02-28 09:39 | P.PN ---
Subjective Patient is seen in follow-up for acute kidney injury, currently hemodialysis dependent. Oliguric. Intubated. On 100% FiO2. Scheduled for tracheostomy and PEG tube placement today. Off vasopressors. No changes overnight. Hemoglobin 7.0 today. No active bleeding. Vital signs are stable. General: The patient appeared well nourished and normally developed. HEENT: Intubated. LUNGS: Breath sounds decreased. HEART: Rate and Rhythm are regular. ABDOMEN: Soft, obese. EXTREMITITES: 1+ edema. Objective - Vital Signs Vital signs: Vital Signs Temp 98.8 F 02/28/21 08:00 Pulse 84 02/28/21 09:00 Resp 40 H 02/28/21 09:00 BP 127/58 02/28/21 09:00 Pulse Ox 95 02/27/21 21:07 Intake & Output 02/27/21 02/28/21 02/28/21 18:59 06:59 18:59 Intake Total 7002.119 8582.922 256.605 Output Total 40 3025 0 Balance 1183.879 -1869.078 256.605 Weight 133.2 kg 130 kg Intake: IV 426 256 69 Dextrose 5% in Water 1, 150 23 000 ml @ 50 mls/hr IV . Q23H MARIO with Sodium Bicarb (1 Meq/ml) 150 ml Rx#:[id number] Pressure bag 36 33 9 Sodium Chloride 0.9% 1, 240 200 60 000 ml @ 20 mls/hr IV . Q24H MARIO Rx#:[id number] Intake, IV Titration 695.879 499.922 187.605 Amount Cisatracurium 200 mg In 365.731 191.597 187.605 Sodium Chloride 0.9% 180 ml @ 1 MCG/KG/MIN 5.987 mls/hr IV .Q24H MARIO Rx#: [id number] cefTRIAXone 1 gm In 50 Sodium Chloride 0.9% 50 ml @ 100 mls/hr IVPB Q24HR MARIO Rx#:[id number] fentaNYL (PF). 1,000 mcg 98.464 100 In Sodium Chloride 0.9% 80 ml @ Per Protocol IV . Q0M MARIO Rx#:[id number] propofoL 1,000 mg In 181.684 208.325 Empty Bag 1 bag @ Titrate IV .Q0M MARIO Rx#: [id number] Tube Feeding 72 0 Hemodialysis 400 Other 30 Output: Urine 40 25 0 Hemodialysis 3000 Other: Voiding Method Indwelling Catheter Indwelling Catheter Indwelling Catheter ABP, PAP, CO, CI - Last Documented Arterial Blood Pressure 155/55 - Labs CBC & Chem 7: 02/28/21 04:21 02/28/21 04:21 Labs: Abnormal Lab Results - Last 24 Hours (Table) 02/27/21 02/27/21 02/27/21 Range/Units 05:00 11:56 12:00 RBC (4.30-5.90) m/uL Hgb (13.0-17.5) gm/dL Hct (39.0-53.0) % RDW (11.5-15.5) % Monocytes # (Manual) (0-1.0) k/uL Metamyelocytes # (Man) (0) k/uL Myelocytes # (Manual) (0) k/uL Nucleated RBCs (0-0) /100 WBC ABG pH (7.35-7.45) ABG pCO2 (35-45) mmHg ABG pO2 (83-108) mmHg ABG HCO3 (21-25) mmol/L ABG Total CO2 (19-24) mmol/L Sodium (137-145) mmol/L Potassium (3.5-5.1) mmol/L Chloride (98-107) mmol/L BUN (9-20) mg/dL Creatinine (0.66-1.25) mg/dL POC Glucose (mg/dL) 156 H 129 H (75-99) mg/dL Calcium (8.4-10.2) mg/dL Phosphorus 6.9 H (2.5-4.5) mg/dL 02/28/21 02/28/21 02/28/21 Range/Units 04:21 04:21 04:30 RBC 2.22 L (4.30-5.90) m/uL Hgb 7.0 L (13.0-17.5) gm/dL Hct 21.3 L (39.0-53.0) % RDW 18.6 H (11.5-15.5) % Monocytes # (Manual) 1.68 H (0-1.0) k/uL Metamyelocytes # (Man) 0.08 H (0) k/uL Myelocytes # (Manual) 0.32 H (0) k/uL Nucleated RBCs 19 H (0-0) /100 WBC ABG pH 7.21 L (7.35-7.45) ABG pCO2 71 H* (35-45) mmHg ABG pO2 78 L (83-108) mmHg ABG HCO3 29 H (21-25) mmol/L ABG Total CO2 31 H (19-24) mmol/L Sodium 134 L (137-145) mmol/L Potassium 5.2 H (3.5-5.1) mmol/L Chloride 97 L (98-107) mmol/L BUN 72 H (9-20) mg/dL Creatinine 4.30 H (0.66-1.25) mg/dL POC Glucose (mg/dL) (75-99) mg/dL Calcium 8.0 L (8.4-10.2) mg/dL Phosphorus (2.5-4.5) mg/dL Assessment and Plan Plan: assessment: 1. Acute kidney injury secondary to ATN secondary to COVID-19 infection. Oliguric. Currently hemodialysis dependent. Baseline creatinine near 1. 2. Acute hypoxia respiratory failure. 3. Metabolic acidosis secondary to acute kidney injury maintained on bicarb drip. Resolved. 4. COVID-19 pneumonia. 6. Hyperphosphatemia secondary to acute kidney injury. Plan: Plan for hemodialysis tomorrow. Scheduled for tracheostomy and PEG tube placement today. Maintain tube feeding. Monitor for renal recovery. Hold midodrine for systolic blood pressure greater than 110. Repeat hemoglobin and potassium level this afternoon. Add PhosLo.
--- NOTE | 2021-02-28 09:42 | P.PN ---
Subjective Progress Note Date: 02/28/21 Principal diagnosis: COVID 19 pneumonia. Patient was reevaluated today on 02/24/2021, patient remains in the ICU, intubated and mechanically ventilated. He is on assist control rate of 40 tidal volume is 485-85% PEEP remains at 18. ABG showed a pO2 of 58 pCO2 of 81 pH of 7.18. Peak airway pressure is 38, static pressure is 24. Chest x-ray is basically the same, continues to show bilateral patchy infiltrates. Patient remains on multiple drips including IV fluid at KVO, bicarbonate 100 mL/h, Nimbex S3 propofol at 20 norepinephrine at 0.12, and fentanyl at 0.05. Patient remains on enteral feeding using Nepro 36/36. Today I cut down his FiO2 to 75%, up to the ventilator settings exactly the same otherwise. Patient is supposed to have hemodialysis today. Family has been approached regarding CODE STATUS again, insists on full code. Although the patient had 2 cardiac arrests already while in the ICU. WBC count is 5.2 hemoglobin is 8.4. Electrolytes are normal renal profile is abnormal with a BUN of 118 creatinine 6.79. Patient is going to be dialyzed today. Patient remains sedated and paralyzed. And based on his chest x-ray findings, ABG findings, and his overall status, he is nowhere to be considered for any weaning except possibly cutting down the FiO2 from 85% to 80% or maybe 75% Patient was reevaluated today on 02/25/2021, remains intubated and mechanically ventilated. Had an episode of bradycardia yesterday associated with hypotension, patient responded to atropine and epinephrine injection. Had to be placed back up on 100% FiO2. His vent settings at present are assist control rate of 40 tidal volume is 480 FiO2 is 90% and PEEP of 18. ABG earlier on 75% FiO2 showed a pO2 of 48 pCO2 of 78 pH of 7.21. Presently the patient is on 90% FiO2. He is undergoing hemodialysis today. Presently on propofol at 20 norepinephrine at 0.1 fentanyl at 0.5 Nimbex S3 bicarb drip at 100 mL an hour. Patient is on enteral feeding using Nepro he will be receiving a unit of blood today for low hemoglobin. And we have increase his Pepcid to twice a day. Had some coffee-ground emesis through the nasogastric tube today. WBC count is 7.8 hemoglobin is 7.7. Electrolytes are normal potassium is 5.2 BUN is 105 creatinine 6.03. Chest x-ray is basically about the same, continues to show bilateral patchy infiltrates consistent with COVID-19 pneumonia. Not much different from his x-ray in the last few days. Patient was reevaluated today on 02/26/2021, remains in the ICU, sedated, intubated, paralyzed, patient remains on assist control rate of 40 total volume 480 FiO2 of 100% PEEP of 18. ABG this morning showed a pO2 of 59 pCO2 of 79 pH of 7.22. A shunt remains on dialysis, remains on enteral feeding in the form of Nepro 36/36. Remains on bicarb drip 3 A running at 50 MLS per hour, Nimbex propofol at 20 fentanyl at 0.5. Patient has shown staph aureus in the sputum. He had E. coli urinary tract infection, remains on Rocephin, over the last week, patient coded twice, and he had episodes of bradycardia responding to atropine and epinephrine injections. His x-ray is actually a bit worse compared to his initial x-ray. He was seen by nephrology today, and is scheduled to undergo dialysis today. Yesterday the patient received a unit of packed RBCs for low hemoglobin, his hemoglobin today is 8. WBC count is 7.1. Platelets are 174. Electrolytes are normal bicarb is 34 BUN is 97 creatinine is 5.36. Progress note dated 02/27/2021. This is a patient who was admitted back on 02/09/2021. The patient remains on the mechanical ventilator. He is again seen today in room 250. His initial diagnosis was that of acute hypoxemic respiratory failure secondary to coronavirus infection. Currently, the patient's on the volume assist control mode, rate of 40, tidal volume 480, FiO2 100%, and a PEEP of 18. Blood gases show a PaO2 of 72, PaCO2 75, and pH is 7.21. The patient's getting saline at 20 mL an hour, 3 ampules of sodium bicarbonate bicarbonate and D5W at 50 mL an hour, [place] fall at 20 mcg/kg/m, Nimbex at 5 mcg/kg/m, fentanyl drip that 0.5 mcg/kg/h, and tube feedings with Nepro at 36 mL an hour, which is goal. The patient's PaO2/FiO2 ratio, is less than 100. The patient has severe ARDS. The patient should receive a tracheostomy and PEG tube placement. Currently labs include a white count 6.7, hemoglobin 7.2, hematocrit 22.5, and platelet count 196,000. D-dimer is 4.61. Sodium 136, potassium 4.9, chlorides 97, CO2 31, anion gap 8, BUN 76, and creatinine 4.39. Microbiology showing urine cultures p ositive for Escherichia coli, blood cultures positive for coag-negative staph, and a sputum from February 16 showing staph aureus and Dianne albicans. Chest x- ray shows bilateral scattered infiltrates. Progress note dated 02/28/2021. 65-year-old black male, who was admitted to the hospital on February 09, and was intubated for respiratory failure on February 12. The patient remains on the mechanical ventilator. Ventilator settings include the volume assist control mode, rate 40, tidal volume 480, FiO2 100%, and PEEP of 18. Arterial blood gases show a PaO2 of 78, PaCO2 71, and pH is 7.21. The patient's on Nimbex at 5 mcg/kg/m, fentanyl at 0.5 mcg/kg/h, propofol at 20 mcg/kg/m, saline at 20 mL an hour, and tube feeds which are old, in anticipation of tracheostomy and PEG tube placement today. The patient did undergo hemodialysis yesterday, and 2.6 L was removed. White count 8, hemoglobin 7, hematocrit 21.3, platelet count 225,000. Sodium 134, potassium 5.2, chlorides 97, CO2 29, anion gap 8, BUN 72, creatinine 4.30. Chest x-ray shows bilateral reticular nodular opacities, which are more confluent. Objective - Vital Signs Vital signs: Vital Signs Temp 98.8 F 02/28/21 08:00 Pulse 84 02/28/21 09:00 Resp 40 H 02/28/21 09:00 BP 127/58 02/28/21 09:00 Pulse Ox 95 02/27/21 21:07 Intake & Output 02/27/21 02/28/21 02/28/21 18:59 06:59 18:59 Intake Total 9648.429 2665.922 256.605 Output Total 40 3025 0 Balance 1183.879 -1869.078 256.605 Weight 133.2 kg 130 kg Intake: IV 426 256 69 Dextrose 5% in Water 1, 150 23 000 ml @ 50 mls/hr IV . Q23H [facility] with Sodium Bicarb (1 Meq/ml) 150 ml Rx#:[id number] Pressure bag 36 33 9 Sodium Chloride 0.9% 1, 240 200 60 000 ml @ 20 mls/hr IV . Q24H [facility] Rx#:[id number] Intake, IV Titration 695.879 499.922 187.605 Amount Cisatracurium 200 mg In 365.731 191.597 187.605 Sodium Chloride 0.9% 180 ml @ 1 MCG/KG/MIN 5.987 mls/hr IV .Q24H [facility] Rx#: [id number] cefTRIAXone 1 gm In 50 Sodium Chloride 0.9% 50 ml @ 100 mls/hr IVPB Q24HR [facility] Rx#:[id number] fentaNYL (PF). 1,000 mcg 98.464 100 In Sodium Chloride 0.9% 80 ml @ Per Protocol IV . Q0M [facility] Rx#:[id number] propofoL 1,000 mg In 181.684 208.325 Empty Bag 1 bag @ Titrate IV .Q0M [facility] Rx#: [id number] Tube Feeding 72 0 Hemodialysis 400 Other 30 Output: Urine 40 25 0 Hemodialysis 3000 Other: Voiding Method Indwelling Catheter Indwelling Catheter Indwelling Catheter ABP, PAP, CO, CI - Last Documented Arterial Blood Pressure 155/55 - Exam Sedated and paralyzed, with an orally placed endotracheal tube and NG tube. Saturations are 93%. HEENT examination is grossly unremarkable. Neck supple. Full range of motion. No adenopathy thyromegaly or neck vein distention. Cardiovascular examination reveals regular rhythm rate. S1-S2 normal. No S3 or S4. No discernible murmur noted. Heart sounds distant. Heart rate 84 bpm. Lungs reveal diffuse bilateral rhonchi and crackles. Breath sounds equal. There are no wheezes. Abdomen soft bowel sounds are heard. No masses or tenderness. Extremities are intact. No cyanosis or clubbing. Diffuse bilateral lower extremity edema is noted. Skin is without rash or lesion. Neurologic examination could not be adequately assessed as the patient's heavily sedated and paralyzed. - Labs CBC & Chem 7: 02/28/21 04:21 04/27/21 04:21 Labs: Abnormal Lab Results - Last 24 Hours (Table) 02/27/21 02/27/21 02/27/21 Range/Units 05:00 11:56 12:00 RBC (4.30-5.90) m/uL Hgb (13.0-17.5) gm/dL Hct (39.0-53.0) % RDW (11.5-15.5) % Monocytes # (Manual) (0-1.0) k/uL Metamyelocytes # (Man) (0) k/uL Myelocytes # (Manual) (0) k/uL Nucleated RBCs (0-0) /100 WBC ABG pH (7.35-7.45) ABG pCO2 (35-45) mmHg ABG pO2 (83-108) mmHg ABG HCO3 (21-25) mmol/L ABG Total CO2 (19-24) mmol/L Sodium (137-145) mmol/L Potassium (3.5-5.1) mmol/L Chloride (98-107) mmol/L BUN (9-20) mg/dL Creatinine (0.66-1.25) mg/dL POC Glucose (mg/dL) 156 H 129 H (75-99) mg/dL Calcium (8.4-10.2) mg/dL Phosphorus 6.9 H (2.5-4.5) mg/dL 02/28/21 02/28/21 02/28/21 Range/Units 04:21 04:21 04:30 RBC 2.22 L (4.30-5.90) m/uL Hgb 7.0 L (13.0-17.5) gm/dL Hct 21.3 L (39.0-53.0) % RDW 18.6 H (11.5-15.5) % Monocytes # (Manual) 1.68 H (0-1.0) k/uL Metamyelocytes # (Man) 0.08 H (0) k/uL Myelocytes # (Manual) 0.32 H (0) k/uL Nucleated RBCs 19 H (0-0) /100 WBC ABG pH 7.21 L (7.35-7.45) ABG pCO2 71 H* (35-45) mmHg ABG pO2 78 L (83-108) mmHg ABG HCO3 29 H (21-25) mmol/L ABG Total CO2 31 H (19-24) mmol/L Sodium 134 L (137-145) mmol/L Potassium 5.2 H (3.5-5.1) mmol/L Chloride 97 L (98-107) mmol/L BUN 72 H (9-20) mg/dL Creatinine 4.30 H (0.66-1.25) mg/dL POC Glucose (mg/dL) (75-99) mg/dL Calcium 8.0 L (8.4-10.2) mg/dL Phosphorus (2.5-4.5) mg/dL Assessment and Plan Assessment: Acute hypoxemic respiratory failure secondary to COVID 19 pneumonia, severe A RDS. The patient has been intubated for more than 2 weeks, and was admitted back on 02/09/2021. The patient was mechanically ventilated and intubated on 02/12/2021. Acute kidney injury and renal fire, requiring hemodialysis. Prior history of tobacco use. Elevated liver enzymes secondary to COVID 19 pneumonia and sepsis. Severe cardiomyopathy with LV dysfunction and ejection fraction of 20%. Cardiac arrest requiring CPR 2. History of supraventricular tachycardia. Escherichia coli urinary tract infection. Methicillin sensitive staph aureus tracheobronchitis/bronchopneumonia. Gastrointestinal bleed. Plan: Plan dated 02/27/2021. The patient has been in the hospital for 18 days. The patient was admitted back on 02/09/2021. The patient remains on sedation with propofol, and fentanyl, as well as paralysis with Nimbex. The patient developed end-stage renal disease requiring hemodialysis. The patient will need a tracheostomy and PEG tube placement. The patient has severe ARDS, with a P/F ratio of less than 100. Prognosis is very poor. Apparently the family wants to continue with full support. We'll continue to follow make recommendations were appropriate. Plan dated 02/28/2021. The patient will hopefully have a tracheostomy tube, and PEG tube placement today. The patient did undergo hemodialysis on February 27, and 2.6 L was removed. Ventilator settings are stable. Blood gases are reviewed. The patient remains on Nimbex, fentanyl, propofol. 2 feeds are on hold in anticipation of the surgical procedure. The patient has severe ARDS, with a P/F ratio of less than 100. We will continue to follow and make recommendations where appropriate. Overall prognosis is very poor. Time with Patient: Greater than 30
[2021-02-28 11:20] LABS: Glucose,Whole Blood 91 mg/dL (75-99)
[2021-02-28] MEDS: ASCORBIC ACID 500 MG TAB PO SCH (11:41)
[2021-02-28] MEDS: AMIODARONE 200 MG TAB PO SCH ×3 (11:41→21:02)
[2021-02-28] MEDS: NOREPINEPHRINE 32 MG in SODIUM CHLORIDE 0.9% 218 ML IV SCH (11:41)
[2021-02-28] MEDS: ENOXAPARIN 30 MG/0.3 ML SYRINGE SQ SCH ×2 (11:42→13:07)
[2021-02-28] MEDS: METOPROLOL TARTRATE 25 MG TAB PO SCH ×3 (11:42→21:02)
[2021-02-28] MEDS: ASPIRIN 81 MG PO SCH ×2 (11:42→13:07)
[2021-02-28] MEDS: CHLORHEXIDINE GLUCONATE 15 ML CUP MUCOUS MEM SCH ×2 (11:42→21:02)
[2021-02-28] MEDS: CHOLECALCIFEROL 25 MCG (1000 IU) TABLET PO SCH (11:42)
[2021-02-28] MEDS: ZINC SULFATE 220 MG CAP PO SCH (11:43)
[2021-02-28] MEDS: CALCIUM ACETATE 667 MG TAB PO SCH ×2 (11:46→17:29)
--- NOTE | 2021-02-28 13:21 | P.PN ---
Subjective This is a pleasant 65 years old male with no significant past medical history who presents because of one-week history of dyspnea associated with high fever at 101.3 at home. Associated with coughing. He feels generally weak but no significant chest pain. Patient dyspnea was getting more worse and he was not feeling well so family brought him to the hospital. His symptoms started about 2 weeks Patient is poor historian and is oxygen saturation was troponin while he was on high flow nasal cannula and he has to be placed on BiPAP and sent to the ICU from emergency room Patient is ex-smoker, he quit a few months ago. Used to smoke 2 packs per day. Patient is tachypneic with a breathing rate of 30, he is saturating any to on 60 L/m of oxygen via high flow cannula. A febrile. CBC, and BMP are unremarkable. Liver enzymes slightly elevated with AST 100 and ALT 86 and normal bilirubin of 0.7. D-dimer is elevated at 5.7. Elevated troponin 0.03, 0.06, 0.06 Chronic varus detected CTA of the chest: No evidence of PE. Extensive bilateral pneumonia, emphysema EKG showing sinus tachycardia at 107 with the bundle branch block and QTC 523 Chest x-ray: Bilateral infiltrates Ultrasound of the lower extremities is negative for DVT on both sides In ED he was started on Lovenox, normal saline at 75 mL/h, one-time dose of tocilizumab per pulmonary team , vitamin C, zinc and vitamin D. Patient has been evaluated by pulmonary service, he was started on BiPAP and admitted to the ICU 02/27/2021 This is a pleasant 65 years old -[place] male who was admitted due to respiratory failure secondary to, pneumonia, initially was on BiPAP however his respiratory status deteriorated gradually needing intubation and mechanical ventilation. Currently [facility] the ICU monitoring closely by pulmonary/critical care team will help with vent management. Patient still needs PEEP of 18 Patient is planned to have tracheostomy and PEG tube placement today by surgery team Also he continues on hemodialysis for his acute kidney injury Patient currently on ceftriaxone, Lovenox renal dose, zinc and vitamin C 02/28/2021 Patient is in the ICU intubated and sedated and followed closely by pulmonary/critical care team will help with the management. Patient supposed to get PEG and tracheostomy today but he could not obtain that because of ventilation issue as he is on PEEP of 18 Also labs today are borderline today. Labs today show hemoglobin 7. sodium 134, potassium 5.2, creatinine 4.3. We will monitor his hemoglobin and electrolytes later on. Sputum culture is growing Staphylococcus aureus and Dianne, urine culture is growing E. coli and blood culture coagulase-negative staph. Chest x-ray today, bilateral reticulonodular increased opacity more confluent in the lower lungs consistent with COVID-19. No significant change from one day earlier Objective - Vital Signs Vital signs: Vital Signs Temp 98.8 F 02/28/21 08:00 Pulse 87 02/28/21 12:00 Resp 40 H 02/28/21 12:00 BP 152/65 02/28/21 12:00 Pulse Ox 95 02/27/21 21:07 Intake & Output 02/27/21 02/28/21 02/28/21 18:59 06:59 18:59 Intake Total 1287.220 8510.922 394.837 Output Total 40 3025 5 Balance 1183.879 -1869.078 389.837 Weight 133.2 kg 130 kg Intake: IV 426 256 88 Dextrose 5% in Water 1, 150 23 000 ml @ 50 mls/hr IV . Q23H [facility] with Sodium Bicarb (1 Meq/ml) 150 ml Rx#:[id number] Pressure bag 36 33 18 Sodium Chloride 0.9% 1, 240 200 70 000 ml @ 20 mls/hr IV . Q24H [facility] Rx#:[id number] Intake, IV Titration 695.879 499.922 306.837 Amount Cisatracurium 200 mg In 365.731 191.597 187.605 Sodium Chloride 0.9% 180 ml @ 1 MCG/KG/MIN 5.987 mls/hr IV .Q24H [facility] Rx#: [id number] cefTRIAXone 1 gm In 50 Sodium Chloride 0.9% 50 ml @ 100 mls/hr IVPB Q24HR [facility] Rx#:[id number] fentaNYL (PF). 1,000 mcg 98.464 100 19.475 In Sodium Chloride 0.9% 80 ml @ Per Protocol IV . Q0M [facility] Rx#:[id number] propofoL 1,000 mg In 181.684 208.325 99.757 Empty Bag 1 bag @ Titrate IV .Q0M [facility] Rx#: [id number] Tube Feeding 72 0 Hemodialysis 400 Other 30 Output: Urine 40 25 5 Hemodialysis 3000 Other: Voiding Method Indwelling Catheter Indwelling Catheter Indwelling Catheter ABP, PAP, CO, CI - Last Documented Arterial Blood Pressure 119/57 - Exam -GENERAL: The patient is intubated and sedated HEENT: Pupils are round and equally reacting to light. EOMI. No scleral icterus. No conjunctival pallor. Normocephalic, atraumatic. No pharyngeal erythema. No thyromegaly. CARDIOVASCULAR: S1 and S2 present. No murmurs, rubs, or gallops. PULMONARY: Chest is clear to auscultation, no wheezing or crackles. ABDOMEN: Soft, nontender, nondistended, normoactive bowel sounds. No palpable organomegaly. MUSCULOSKELETAL: No joint swelling or deformity. EXTREMITIES: No cyanosis, clubbing, or pedal edema. NEUROLOGICAL: Gross neurological examination did not reveal any focal deficits. SKIN: No rashes. no petechiae. - Labs CBC & Chem 7: 02/28/21 04:02/28/21 04:21 Labs: Abnormal Lab Results - Last 24 Hours (Table) 02/28/21 02/28/21 02/28/21 Range/Units 04:21 04:21 04:30 RBC 2.22 L (4.30-5.90) m/uL Hgb 7.0 L (13.0-17.5) gm/dL Hct 21.3 L (39.0-53.0) % RDW 18.6 H (11.5-15.5) % Monocytes # (Manual) 1.68 H (0-1.0) k/uL Metamyelocytes # (Man) 0.08 H (0) k/uL Myelocytes # (Manual) 0.32 H (0) k/uL Nucleated RBCs 19 H (0-0) /100 WBC ABG pH 7.21 L (7.35-7.45) ABG pCO2 71 H* (35-45) mmHg ABG pO2 78 L (83-108) mmHg ABG HCO3 29 H (21-25) mmol/L ABG Total CO2 31 H (19-24) mmol/L Sodium 134 L (137-145) mmol/L Potassium 5.2 H (3.5-5.1) mmol/L Chloride 97 L (98-107) mmol/L BUN 72 H (9-20) mg/dL Creatinine 4.30 H (0.66-1.25) mg/dL Calcium 8.0 L (8.4-10.2) mg/dL Assessment and Plan Assessment: Acute bilateral Covid pneumonia Acute hypoxic respiratory failure secondary to above Elevated inflammatory markers Acute kidney injury with altered urea needing hemodialysis Severe cardiomyopathy EF: 20-25% Elevated troponin, secondary to Covid infection. Elevated d-dimer, with no evidence of PE on CTA of the chest Mildly elevated liver enzymes, secondary to covid Height lactic acid, came back to normal Emphysema Plan: This is a pleasant 65 years old male who presents with Covid. Continue with vent management per pulmonary team. Continue with antibiotic and multiple vitamins. Pulmonary and cardiology consult Plan for PEG tube placement and tracheostomy Labs and medication were reviewed.. Continue same treatment. Continue with symptomatic treatment. Resume home medication. Monitor lytes and vitals. DVT and GI prophylaxis. Further recommendations depends on the clinical course of the patient DVT prophylaxis: Subcutaneous Lovenox GI Prophylaxis: Pepcid Prognosis is guarded
--- NOTE | 2021-02-28 14:02 | P.PN ---
Subjective Progress Note Date: 02/28/21 CHIEF COMPLAINT: Shortness of breath HISTORY OF PRESENT ILLNESS: Patient is intubated and on mechanical ventilation and in the ICU for COVID-19 pneumonia. Surgical service is on consult for PEG and tracheostomy placement. Procedure was to be completed today however, patient has been requiring a high level of PEEP and anesthesia did not clear patient for surgery. Afebrile WBC 8.0 hemoglobin 7.0 PHYSICAL EXAM: VITAL SIGNS: Reviewed. GENERAL: Well-developed in no acute distress. HEENT: No sclera icterus. Extraocular movements grossly intact. Moist buccal mucosa. Head is atraumatic, normocephalic. ABDOMEN: Soft. Nondistended. Nontender. NEUROLOGIC: Intubated and sedated ASSESSMENT: 1. Acute hypoxic respiratory failure requiring prolonged mechanical ventilation 2. Severe protein calorie malnutrition 3. COVID-19 pneumonia PLAN: -Patient has been rescheduled for tracheostomy and PEG tube placement for tomorrow, 03/01/[address] Mosquera -Hold tube feedings after midnight Physician Cst note has been reviewed by physician. Signing provider agrees with the documented findings, assessment, and plan of care. Objective - Vital Signs Vital signs: Vital Signs Temp 98.8 F 02/28/21 08:00 Pulse 87 02/28/21 12:00 Resp 40 H 02/28/21 12:00 BP 152/65 02/28/21 12:00 Pulse Ox 95 02/27/21 21:07 Intake & Output 02/27/21 02/28/21 02/28/21 18:59 06:59 18:59 Intake Total 5644.549 4859.922 407.837 Output Total 40 3025 5 Balance 1183.879 -1869.078 402.837 Weight 133.2 kg 130 kg Intake: IV 426 256 101 Dextrose 5% in Water 1, 150 23 000 ml @ 50 mls/hr IV . Q23H [facility] with Sodium Bicarb (1 Meq/ml) 150 ml Rx#:[id number] Pressure bag 36 33 21 Sodium Chloride 0.9% 1, 240 200 80 000 ml @ 20 mls/hr IV . Q24H [facility] Rx#:[id number] Intake, IV Titration 695.879 499.922 306.837 Amount Cisatracurium 200 mg In 365.731 191.597 187.605 Sodium Chloride 0.9% 180 ml @ 1 MCG/KG/MIN 5.987 mls/hr IV .Q24H [facility] Rx#: [id number] cefTRIAXone 1 gm In 50 Sodium Chloride 0.9% 50 ml @ 100 mls/hr IVPB Q24HR [facility] Rx#:[id number] fentaNYL (PF). 1,000 mcg 98.464 100 19.475 In Sodium Chloride 0.9% 80 ml @ Per Protocol IV . Q0M [facility] Rx#:[id number] propofoL 1,000 mg In 181.684 208.325 99.757 Empty Bag 1 bag @ Titrate IV .Q0M [facility] Rx#: [id number] Tube Feeding 72 0 Hemodialysis 400 Other 30 Output: Urine 40 25 5 Hemodialysis 3000 Other: Voiding Method Indwelling Catheter Indwelling Catheter Indwelling Catheter ABP, PAP, CO, CI - Last Documented Arterial Blood Pressure 119/57 - Labs CBC & Chem 7: 02/28/21 04:21 02/28/21 04:21 Labs: Abnormal Lab Results - Last 24 Hours (Table) 02/28/21 02/28/21 02/28/21 Range/Units 04:21 04:21 04:30 RBC 2.22 L (4.30-5.90) m/uL Hgb 7.0 L (13.0-17.5) gm/dL Hct 21.3 L (39.0-53.0) % RDW 18.6 H (11.5-15.5) % Monocytes # (Manual) 1.68 H (0-1.0) k/uL Metamyelocytes # (Man) 0.08 H (0) k/uL Myelocytes # (Manual) 0.32 H (0) k/uL Nucleated RBCs 19 H (0-0) /100 WBC ABG pH 7.21 L (7.35-7.45) ABG pCO2 71 H* (35-45) mmHg ABG pO2 78 L (83-108) mmHg ABG HCO3 29 H (21-25) mmol/L ABG Total CO2 31 H (19-24) mmol/L Sodium 134 L (137-145) mmol/L Potassium 5.2 H (3.5-5.1) mmol/L Chloride 97 L (98-107) mmol/L BUN 72 H (9-20) mg/dL Creatinine 4.30 H (0.66-1.25) mg/dL Calcium 8.0 L (8.4-10.2) mg/dL
[2021-02-28 15:13] LABS: Anisocytosis Slight; HCT 20.9 % (39.0-53.0); Hypochromasia Slight; MCH 31.6 pg (25.0-35.0); MCHC 33.3 g/dL (31.0-37.0); MCV 94.9 fL (80.0-100.0); Macrocytosis Slight; Mean Platelet Volume 9.3; Platelet Count 217 k/uL (150-450); Poikilocytosis Moderate; RDW 18.1 % (11.5-15.5); WBC 9.9 k/uL (3.8-10.6)
[2021-02-28 17:42] LABS: Glucose,Whole Blood 110 mg/dL (75-99)
[2021-02-28] MEDS ORDERED: FUROSEMIDE 10 MG/ML 10 ML VIAL IV STA (18:07)
[2021-02-28] MEDS ORDERED: ARTIFICIAL TEARS-HYPROMELLOSE DROPS 15 ML BTL BOTH EYES PRN (20:27)
[2021-02-28 23:50] LABS: Glucose,Whole Blood 110 mg/dL (75-99)
[2021-03-01] MEDS: INSULIN ASPART (NovoLOG) 100 UNIT/ML VIAL SQ SCH (00:14)
[2021-03-01 01:27] VITALS: TEMP 98.8
[2021-03-01] MEDS: CISATRACURIUM 200 MG in SODIUM CHLORIDE 0.9% 180 ML IV SCH (02:49)
[2021-03-01] MEDS: SODIUM CHLORIDE 0.9% 1,000 ML IV SCH (03:56)
[2021-03-01] MEDS: fentaNYL (PF). 1,000 MCG in SODIUM CHLORIDE 0.9% 80 ML IV SCH (03:58)
[2021-03-01 04:47] LABS: ABG Base Excess -3.1 mmol/L; ABG HCO3 26 mmol/L (21-25); ABG Oxygen Saturation 72.6 % (94-97); ABG TCO2 28 mmol/L (19-24)
[2021-03-01 04:52] LABS: ABG PCO2 75 mmHg (35-45); ABG PH 7.15 (7.35-7.45); ABG PO2 45 mmHg (83-108)
[2021-03-01] MEDS ORDERED: NOREPINEPHRIN 4 MG-0.9% NS PMX 4 MG/250 ML ML IV ONE (04:59)
[2021-03-01 05:00] LABS: Anisocytosis Slight; HCT 21.4 % (39.0-53.0); HGB 7.2 gm/dL (13.0-17.5); Hypochromasia Slight; MCH 32.1 pg (25.0-35.0); MCHC 33.6 g/dL (31.0-37.0); MCV 95.5 fL (80.0-100.0); Macrocytosis Slight; Mean Platelet Volume 8.4; Platelet Count 245 k/uL (150-450); Poikilocytosis Moderate; RBC 2.24 m/uL (4.30-5.90); RDW 18.4 % (11.5-15.5)
[2021-03-01] MEDS ORDERED: EPINEPHrine 10 ML SYRINGE (0.1 MG/ML) ONE (05:03)
[2021-03-01] MEDS ORDERED: SODIUM CHLORIDE 0.9% 1,000 ML BAG ONE (05:03)
[2021-03-01] MEDS ORDERED: SODIUM BICARB 8.4% 50 ML SYR (1 MEQ/ML) ONE (05:03)
--- NOTE | 2021-03-01 05:05 | XR ---
EXAM: XR Chest, 1 View CLINICAL HISTORY: ITS.REASON XR Reason: intubated TECHNIQUE: Frontal view of the chest. COMPARISON: February 28, 2021. FINDINGS: Lungs: Moderate to severe diffuse interstitial infiltrates throughout both lungs, similar to previous. Pleural space: New large left pneumothorax measuring approximately 5 cm inferiorly with hyperexpansion of the left hemithorax and slight shift of the be sent to the right. Heart: The cardiac silhouette is borderline enlarged. Mediastinum: Unremarkable. Bones/joints: Unremarkable. Vasculature: Left subclavian line in place with the tip in the superior vena cava. Tubes, lines and devices: The lung apices are cut off of this film. The endotracheal tube tip is visible located 8 cm above the martinez. NG tube extends into the stomach. IMPRESSION: 1. New large left pneumothorax measuring approximately 5 cm inferiorly with hyperexpansion of the left hemithorax and slight shift of the be sent to the right. 2. Moderate to severe diffuse interstitial infiltrates throughout both lungs, similar to previous. 3. The lung apices are cut off of this film. The endotracheal tube tip is visible located 8 cm above the martinez. <MYCVCSECTION> Communications: 03/01/21 05:14 Call Doctor Regarding Pneumothorax, called Dr. Chun on 03/01 05:14 (-04:00)
[2021-03-01 05:14] LABS: Calcium 8.2 mg/dL (8.4-10.2); Potassium 5.8 mmol/L (3.5-5.1)
[2021-03-01 06:28] VITALS: BP 54/42; PULSE 69; RESP 40
[2021-03-01 10:48] LABS: Band Neutrophils % 3 %; Metamyelocytes % 5 %; Myelocytes % 3 %; Neutrophils % (M) 38 %; Nucleated Red Blood Cells 29 /100 WBC (0-0); Total Cells Counted 200
[2021-03-01 10:49] LABS: Lymphocytes # (M) 2.13 k/uL (1.0-4.8); Metamyelocytes # (M) 0.36 k/uL (0); Monocytes # (M) 1.63 k/uL (0-1.0); Myelocytes # (M) 0.21 k/uL (0); WBC 7.1 k/uL (3.8-10.6)
[2021-03-01 10:50] LABS: Basophilic Stippling Present; Polychromasia Present
--- NOTE | 2021-03-02 01:19 | P.DS ---
Providers Date of admission: 02/09/21 23:00 Attending physician: Hari Sharif Consults: 02/09/21 22:59 Consult Physician Routine Consulting Provider: Bishop Miranda Consult Reason/Comments: Covid pneumonia Do you want consulting provider notified?: Yes 02/09/21 23:05 Consult Physician Routine Consulting Provider: Farooq Moran Consult Reason/Comments: elevated troponin Do you want consulting provider notified?: Yes 02/19/21 06:59 Consult Physician Routine Consulting Provider: Sienna Collins Consult Reason/Comments: FLOYD Do you want consulting provider notified?: Yes 02/20/21 21:11 Consult Physician Stat Consulting Provider: Mendez Castro Consult Reason/Comments: dialysis catheter Do you want consulting provider notified?: Already Contacted 02/27/21 08:05 Consult Physician Routine Consulting Provider: Lopez Mosquera Consult Reason/Comments: trach and peg Do you want consulting provider notified?: Yes Primary care physician: Rodney Ingram Hospital Course: Diagnoses: Acute bilateral Covid pneumonia Acute hypoxic respiratory failure secondary to above Left pneumothorax Elevated inflammatory markers Acute kidney injury with altered urea needing hemodialysis Severe cardiomyopathy EF: 20-25% Elevated troponin, secondary to Covid infection. Elevated d-dimer, with no evidence of PE on CTA of the chest Mildly elevated liver enzymes, secondary to covid Height lactic acid, came back to normal Emphysema Hospital course: This is a pleasant 65 years old male with no significant past medical history who presents because of one-week history of dyspnea associated with high fever at 101.3 at home. Associated with coughing. Patient was admitted to the ICU with pulmonary/critical care team followed him closely, Patient was diagnosed with bilateral Covid pneumonia and he was treated initially with BiPAP however his respiratory status deteriorated and he needed to be intubated. He received multiple therapy with Lovenox ceftriaxone, multiple vitamins, IV fluids, however he remained doing poorly.. Morning he become unstable and chest x-ray showed large left pneumothorax, chest x-ray was ordered by pulmonary team, Dr. Aguilar from ER came to place it however patient deteriorated clinically and resuscitation was initiated, eventually patient [employer], please refer to nurse note for more details Patient Condition at Discharge: Serious Plan - Discharge Summary Discharge Rx Participant: Yes New Discharge Prescriptions: No Action HYDROcodone/APAP 10-325MG [Mobile 10-325] 0.5 - 1 tab PO BID PRN PRN Reason: Pain Dexamethasone [Decadron] 3 mg PO BID Azithromycin [Zithromax Z-pack (6 tabs)] See Taper PO DIRECTED Discharge Medication List HYDROcodone/APAP 10-325MG [Mobile 10-325] 0.5 - 1 tab PO BID PRN 06/04/19 [History] Azithromycin [Zithromax Z-pack (6 tabs)] See Taper PO DIRECTED 02/09/21 [History] Dexamethasone [Decadron] 3 mg PO BID 02/09/21 [History] Follow up Appointment(s)/Referral(s): Juan Jose Stevens MD [Primary Care Provider] - 1-2 days Discharge Disposition: - Preliminary Cause of Preliminary Cause of : covid pneumonia with pneumothorax and resp failure
--- NOTE | 2021-03-03 21:16 | CDI ---
Dr. Green Sheet, Your patient had hypotension and was given IV Levophed. Based on this information and the findings below, is there an additional diagnosis that is clinically appropriate for this patient? Patient history/risk factors: 02/13 progress note: Patient seen and examined in the ICU for Covid pneumonia, this morning his respiratory status deteriorated and he had to be intubated and placed on mechanical ventilation, also blood pressure was troponin even with boluses of normal saline and he has to be placed on Levophed at 0.05. Clinical Indicators: 02/13 progress note: Post intubation, the patient requires also pressors and currently norepinephrine is running at 0.02mcg/kg/per minute. 02/19 Consult: Hypotension secondary to sepsis. 02/20 progress note: Hypotension secondary to sepsis. Acute kidney injury, acute tubular necrosis, currently worsening with decrease in urine output, worsening renal function and persistent hyperkalemia. 02/22 progress note: He developed hypotension and then started to have bradycardia and eventually code was called. 02/25 progress note: Had an episode of bradycardia yesterday associated with hypotension, patient responded to atropine and epinephrine injection. Treatment: IV Levophed 02/22-/02/23 IV Norepinephrine 02/12-02/20 IV Epinephrine x1 on 02/25 IV Dobutamine 02/16-02/17 Is there an additional diagnosis that is clinically appropriate for this patient? [ ] Cardiogenic Shock [ ] Septic Shock [ ] Other Shock, please specify [ ] Other, please specify [ ] Unable to determine Unable to determine MTDD
--- NOTE | 2021-04-19 08:57 | CDI ---
Documentation Clarification Form Date: 04/19/21 From: [place] Admit Date: 02/09/2021 11:00:00 PM Patient Name: Holden Putnam Visit Number: [id number] Discharge Date: 03/01/2021 12:05:00 PM ATTENTION: The Clinical Documentation Specialists (CDI) and [facility] Coding Staff appreciate your assistance in clarifying documentation. Please respond to the clarification below the line at the bottom and electronically sign. The CDI & [facility] Coding staff will review the response and follow-up if needed. Please note: Queries are made part of the Legal Health Record. If you have any questions, please contact the author of this message via ITS. Dr. Hari Sharif Sepsis is documented in progress note 02/20 and in cosult 02/19. For each diagnosis, documentation must be clear to determine if the condition was present at the time of the patients inpatient admission or developed during the hospital stay. Additional clarification regarding the sepsis is requested. History/Risk Factors: COVID, COVID PNA, ARDS Clinical Indicators: ED: Temp 98.7, pulse 110, resp 36, B/P 147/79, WBC 10.0, acidosis Treatment: Tocilzumab, convalescent plasma Definition of Present on Admission (POA): A diagnosis present at the time the order for admission to inpatient status was written. Please clarify if the sepsis was POA [ ] Y = Yes, the condition was present at the time of the order for inpatient admission. [ ] N = No, the condition was not present at the time of the order for inpatient admission. [ ] W = Clinically undetermined if the condition was present at the time of the order for inpatient admission. Yes, the condition was present at the time of the order for inpatient admission. MTDD
== END 2021-03-01 12:05 | disposition expired | DRG 870 ==
LOC: EC 21:00 → 3SCARD 23:00 → 2SICU 02-10 10:38
PROVIDERS: ADMIT Hospitalist; ATTEND Hospitalist
PROC: 3E0333Z Introduction of Anti-inflammatory into Peripheral Vein, Percutaneous Approach (ICD-10-PCS; 2021-02-09)
PROC: 5A09457 Assistance with Respiratory Ventilation, 24-96 Consecutive Hours, Continuous Positive Airway Pressure (ICD-10-PCS; 2021-02-09)
PROC: XW033H5 Introduction of Tocilizumab into Peripheral Vein, Percutaneous Approach, New Technology Group 5 (ICD-10-PCS; 2021-02-10)
PROC: XW13325 Transfusion of Convalescent Plasma (Nonautologous) into Peripheral Vein, Percutaneous Approach, New Technology Group 5 (ICD-10-PCS; 2021-02-10)
PROC: 5A1955Z Respiratory Ventilation, Greater than 96 Consecutive Hours (ICD-10-PCS; principal; 2021-02-12)
PROC: 0BH17EZ Insertion of Endotracheal Airway into Trachea, Via Natural or Artificial Opening (ICD-10-PCS; 2021-02-12)
PROC: 5A12012 Performance of Cardiac Output, Single, Manual (ICD-10-PCS; 2021-02-12)
PROC: 02HV33Z Insertion of Infusion Device into Superior Vena Cava, Percutaneous Approach (ICD-10-PCS; 2021-02-12)
PROC: 03HY32Z Insertion of Monitoring Device into Upper Artery, Percutaneous Approach (ICD-10-PCS; 2021-02-12)
PROC: 03HY32Z Insertion of Monitoring Device into Upper Artery, Percutaneous Approach (ICD-10-PCS; 2021-02-12)
PROC: 4A133B1 Monitoring of Arterial Pressure, Peripheral, Percutaneous Approach (ICD-10-PCS; 2021-02-12)
PROC: 4A133J1 Monitoring of Arterial Pulse, Peripheral, Percutaneous Approach (ICD-10-PCS; 2021-02-12)
PROC: 3E033XZ Introduction of Vasopressor into Peripheral Vein, Percutaneous Approach (ICD-10-PCS; 2021-02-12)
PROC: 0DH67UZ Insertion of Feeding Device into Stomach, Via Natural or Artificial Opening (ICD-10-PCS; 2021-02-12)
PROC: 3E0G76Z Introduction of Nutritional Substance into Upper GI, Via Natural or Artificial Opening (ICD-10-PCS; 2021-02-12)
PROC: 06HY33Z Insertion of Infusion Device into Lower Vein, Percutaneous Approach (ICD-10-PCS; 2021-02-21)
PROC: 5A1D70Z Performance of Urinary Filtration, Intermittent, Less than 6 Hours Per Day (ICD-10-PCS; 2021-02-21)
PROC: 03HY32Z Insertion of Monitoring Device into Upper Artery, Percutaneous Approach (ICD-10-PCS; 2021-02-22)
PROC: 4A133B1 Monitoring of Arterial Pressure, Peripheral, Percutaneous Approach (ICD-10-PCS; 2021-02-22)
PROC: 4A133J1 Monitoring of Arterial Pulse, Peripheral, Percutaneous Approach (ICD-10-PCS; 2021-02-22)
PROC: 30233N1 Transfusion of Nonautologous Red Blood Cells into Peripheral Vein, Percutaneous Approach (ICD-10-PCS; 2021-02-25)
PROC: 5A12012 Performance of Cardiac Output, Single, Manual (ICD-10-PCS; 2021-03-01)
DX: A41.89 Other specified sepsis (principal); U07.1 COVID-19; J12.82 Pneumonia due to coronavirus disease 2019; J80 Acute respiratory distress syndrome; N17.0 Acute kidney failure with tubular necrosis; I21.4 Non-ST elevation (NSTEMI) myocardial infarction; J15.211 Pneumonia due to Methicillin susceptible Staphylococcus aureus; E43 Unspecified severe protein-calorie malnutrition; E87.2 Acidosis; N39.0 Urinary tract infection, site not specified; J95.850 Mechanical complication of respirator; I42.9 Cardiomyopathy, unspecified; I47.2 Ventricular tachycardia; I47.1 Supraventricular tachycardia; K92.2 Gastrointestinal hemorrhage, unspecified; J93.9 Pneumothorax, unspecified; E87.4 Mixed disorder of acid-base balance; Z51.5 Encounter for palliative care; B96.20 Unspecified Escherichia coli [E. coli] as the cause of diseases classified elsewhere; I44.7 Left bundle-branch block, unspecified; J43.9 Emphysema, unspecified; I95.9 Hypotension, unspecified; D72.810 Lymphocytopenia; Z66 Do not resuscitate; I46.8 Cardiac arrest due to other underlying condition; I48.91 Unspecified atrial fibrillation; N18.9 Chronic kidney disease, unspecified; E11.22 Type 2 diabetes mellitus with diabetic chronic kidney disease; E87.5 Hyperkalemia; E83.39 Other disorders of phosphorus metabolism; E87.70 Fluid overload, unspecified; F41.9 Anxiety disorder, unspecified; K29.60 Other gastritis without bleeding; N14.1 Nephropathy induced by other drugs, medicaments and biological substances; T50.8X5A Adverse effect of diagnostic agents, initial encounter; Z79.82 Long term (current) use of aspirin; Z79.899 Other long term (current) drug therapy; Z86.19 Personal history of other infectious and parasitic diseases; F17.211 Nicotine dependence, cigarettes, in remission; D63.1 Anemia in chronic kidney disease
CPT/HCPCS: 36415; 36600; 71045; 71275; 80048; 80053; 81001; 82550; 82553; 82728; 82805; 83605; 83615; 83735; 83880; 84100; 84132; 84145; 84484; 85025; 85027; 85379; 85610; 85730; 86140; 86706; 86850; 86900; 86901; 86920; 87040; 87070; 87077; 87086; 87186; 87205; 87340; 87635; 90935; 93005; 93306; 93970; 94002; 94003; 94660; 99291